=== PATIENT | male | born 1970 | race Caucasian/White ===

== ENCOUNTER 2016-07-02 13:09 | Outpatient (RCR) | payer BC ==
[2016-06-01 15:17] LABS: INR 2.3 (0.8-1.4); PROTHROMBIN TIME PATIENT 24.8 SEC (12.2-14.7)
[~2016-07-02 13:09] MED LIST: ASP81TEC PO; ATR20T PO; AZIT-21 PO; CEPH500C PO; CLOP75TA PO; HYDR-757 PO; HYDR1CAP2 PO; HYDR1TAB PO; IBUP-1773 PO; INDO25CA PO; ISM30TCR PO; LISI10TA PO; LISI2.5T85 PO; METO25TA2 PO; OMEP-10 PO; OMG1KC PO; PNT40TEC PO; PRED5TAB PO; WARF7.5T; WRF5T; WRF5T PO
[2016-07-02 13:29] LABS: INR 2.4 (0.8-1.4); PROTHROMBIN TIME PATIENT 26.3 SEC (12.2-14.7)
[2016-08-08] MEDS ORDERED: OMEP20CA12 PO (11:28)
[2016-08-08] MEDS ORDERED: OMEG-160 PO ×2 (11:28)
== END 2016-08-30 | disposition home or self-care (01) ==
LOC: LAB 13:09
PROVIDERS: ATTEND Internal Medicine Cardiovascular Disease
DX: I82.403 Acute embolism and thrombosis of unspecified deep veins of lower extremity, bilateral (principal); Z79.01 Long term (current) use of anticoagulants
CPT/HCPCS: 36415; 85610

== ENCOUNTER 2016-11-28 08:17 | Outpatient (RCR) | payer BC ==
[2016-09-12 14:49] LABS: INR 2.5 (0.8-1.4)
[2016-10-05 11:21] LABS: INR 1.8 (0.8-1.4); PROTHROMBIN TIME PATIENT 20.2 SEC (12.2-14.7)
[~2016-11-28 08:17] MED LIST changes: +OMEG-160 PO; +OMEP20CA12 PO
[2016-11-28 08:35] LABS: INR 2.2 (0.8-1.4); PROTHROMBIN TIME PATIENT 23.9 SEC (12.2-14.7)
== END 2016-12-11 | disposition home or self-care (01) ==
LOC: LAB 08:17
PROVIDERS: ATTEND Internal Medicine Cardiovascular Disease
DX: I82.403 Acute embolism and thrombosis of unspecified deep veins of lower extremity, bilateral (principal); Z79.01 Long term (current) use of anticoagulants
CPT/HCPCS: 36415; 85610

== ENCOUNTER 2017-01-09 17:18 | Emergency (ER) | payer BC ==
[~2017-01-09] VITALS: Ht 160 cm; Wt 86.2 kg
[2017-01-09] MEDS ORDERED: HYDR-3816 (17:36)
[2017-01-09] MEDS ORDERED: NS IV 1000 ML 1,000 ML IV ONE (17:53)
[2017-01-09] MEDS ORDERED: NS 100 ML (IVPB) BAG IV ONE (18:00)
[2017-01-09] MEDS ORDERED: IOHEXOL 350 MG/ML 100 ML (OMNIPAQUE 350) VIAL IV ONE (18:00)
--- NOTE | 2017-01-09 18:03 | ED Abdominal Pain ---
General Chief Complaint: Abdominal/GI Problems Stated Complaint: LOWER CHEST PAIN Nursing Triage Note: AMB TO ED REPORTS HAS HAD EPIGASTRIC PAIN FOR 1 WEEK. WORSE WHEN MOVING. Sepsis Screen: No Definite Risk Source of Information: Patient, Spouse Exam Limitations: No Limitations History of Present Illness Time Seen By Provider: 17:55 Initial Comments 46 yo male patient presents to the ED with c/o epigastric and RUQ pain for 1 wk. pain worse with spicy foods and movement. denies N/V/D. NPO since 0800. Timing/Duration: 1 Week Severity/Quality: Aching, Cramping Location: Epigastric Radiation: RUQ Activities at Onset: None Modifying Factors: Worsens With Eating, Worsens With Movement Allergies and Home Medications Allergies Coded Allergies: Penicillins (Unverified Allergy, Mild, 01/27/09) Home Medications Aspirin 81 Mg Tabec, 81 MG PO DAILY, (Reported) Atorvastatin 20 Mg Tablet, 20 MG PO DAILY, (Reported) Hydrocodone/Acetaminophen 1 Each Tablet, #90 (Reported) Lisinopril 2.5 Mg Tablet, 2.5 MG PO DAILY, (Reported) Metoprolol Tartrate 25 Mg Tablet, 25 MG PO HS, (Reported) [place]-3/Dha/Epa/Fish Oil 1 Each Capsule, 1,000 MG PO DAILY, (Reported) [place]-3/Dha/Epa/Fish Oil 1 Each Capsule, 2,000 MG PO HS, (Reported) TAKES 2 (1,000 MG) CAPSULES Omeprazole 20 Mg Capsule.dr, 20 MG PO DAILY, (Reported) Ondansetron 8 Mg Tab.rapdis, 8 MG PO Q6H PRN for NAUSEA/VOMITING-1ST LINE, #10 Ref 0 Prescribed by: ROCHELLE FLORES on 01/09/171899 Warfarin Sod 5 Mg Tab, 7.5 MG PO Mo@190, (Reported) TAKES 1 & 1/2 OF A (5 MG) TABLET Warfarin Sod 5 Mg Tab, 5 MG PO SuTuWeThFrSa@190, (Reported) Review of Systems Constitutional: No chills, No fever, No malaise Respiratory: Denies Cough, Denies Shortness of Air, Denies Wheezing Cardiovascular: Denies Chest Pain, Denies Lightheadedness, Denies Syncope Gastrointestinal: See HPI, Denies Abdomen Distended, Abdominal Pain, Denies Blood Streaked Stools, Denies Constipated, Denies Diarrhea, Denies Nausea, Denies Poor Appetite, Denies Poor Fluid Intake, Denies Rectal Bleeding, Denies Vomiting Genitourinary: Denies Burning, Denies Frequency, Denies Flank Pain, Denies Hematuria, Denies Pain Musculoskeletal: no symptoms reported Skin: no symptoms reported Psychiatric/Neurological: No Symptoms Reported All Other Systems Reviewed Negative Unless Noted: Yes (Negative excepted noted.) Past Oyeeqkj-Kknzor-Igqjvg Hx Patient Social History Alcohol Use: Occasionally Uses Recreational Drug Use: No Smoking Status: Current Everyday Smoker Recent Foreign Travel: No Contact w/Someone Who Travel: No Recent Infectious Disease Expo: No Immunizations Up To Date Date of Pneumonia Vaccine: Jul 28, 2012 Date of Influenza Vaccine: Jun 08, 2016 Seasonal Allergies Seasonal Allergies: No Surgeries HX Surgeries: Yes (STENTS) Respiratory Hx Respiratory Disorders: No Cardiovascular Hx Cardiac Disorders: Yes (STENT) Cardiac Disorders: Heart Attack Neurological Hx Neurological Disorders: No Reproductive System Hx Reproductive Disorders: No Genitourinary Hx Genitourinary Disorders: No Gastrointestinal Hx Gastrointestinal Disorders: Yes Gastrointestinal Disorders: Gastroesophageal Reflux Musculoskeletal Hx Musculoskeletal Disorders: Yes Musculoskeletal Disorders: Chronic Back Pain Endocrine Hx Endocrine Disorders: No HEENT HX ENT Disorders: No Cancer Hx Cancer: No Psychosocial Hx Psychiatric Problems: No Integumentary HX Skin/Integumentary Disorder: No Blood Transfusions Hx Blood Disorders: Yes (PROTEIN S DEF) Reviewed Nursing Assessment Reviewed/Agree w Nursing PMH: Yes Family Medical History Significant Family History: Heart Disease, Vascular Disease Physical Exam Vital Signs VS - Last 72 Hours, by Label 01/09/17 01/09/17 17:22 19:19 Temp 98.7 97.7 Pulse 82 75 Resp 18 18 B/P (MAP) 147/82 Pulse Ox 95 95 O2 Delivery Room Air Capillary Refill : Less Than 3 Seconds General Appearance: WD/WN, no apparent distress HEENT: PERRL/EOMI, pharynx normal Neck: supple, normal inspection Respiratory: lungs clear, normal breath sounds, no respiratory distress Cardiovascular: normal peripheral pulses, regular rate, rhythm, no edema, no murmur Peripheral Pulses: 2+ Dorsalis Pedis (R), 2+ Left Dors-Pedis (L) Gastrointestinal: normal bowel sounds, soft, no organomegaly, No distended, guarding (epigastric and RUQ), No rebound, tenderness (RUQ and epigastric), other ((+) zayas's sign) Back: normal inspection Neurologic/Psychiatric: alert, normal mood/affect, oriented x 3 Skin: normal color, warm/dry Progress/Results/Core Measures Results/Orders Lab Results Laboratory Tests Test 01/09/17 11:03 Range/Units White Blood Count 8.9 4.3-11.0 10^3/uL Red Blood Count 4.97 4.35-5.85 10^6/uL Hemoglobin 14.6 13.3-17.7 G/DL Hematocrit 43 40-54 % Mean Corpuscular Volume 86 80-99 FL Mean Corpuscular Hemoglobin 29 25-34 PG Mean Corpuscular Hemoglobin Concent 34 32-36 G/DL Red Cell Distribution Width 13.7 10.0-14.5 % Platelet Count 285 130-400 10^3/uL Mean Platelet Volume 9.7 7.4-10.4 FL Neutrophils (%) (Auto) 44 42-75 % Lymphocytes (%) (Auto) 40 12-44 % Monocytes (%) (Auto) 11 0-12 % Eosinophils (%) (Auto) 4 0-10 % Basophils (%) (Auto) 1 0-10 % Neutrophils # (Auto) 3.9 1.8-7.8 X 10^3 Lymphocytes # (Auto) 3.5 1.0-4.0 X 10^3 Monocytes # (Auto) 1.0 0.0-1.0 X 10^3 Eosinophils # (Auto) 0.4 H 0.0-0.3 10^3/uL Basophils # (Auto) 0.1 0.0-0.1 10^3/uL Sodium Level 140 135-145 MMOL/L Potassium Level 4.5 3.6-5.0 MMOL/L Chloride Level 105 98-107 MMOL/L Carbon Dioxide Level 27 21-32 MMOL/L Anion Gap 8 5-14 MMOL/L Blood Urea Nitrogen 8 7-18 MG/DL Creatinine 0.76 0.60-1.30 MG/DL Estimat Glomerular Filtration Rate > 60 BUN/Creatinine Ratio 11 Glucose Level 91 70-105 MG/DL Calcium Level 8.9 8.5-10.1 MG/DL Total Bilirubin 0.3 0.1-1.0 MG/DL Aspartate Amino Transf (AST/SGOT) 24 5-34 U/L Alanine Aminotransferase (ALT/SGPT) 18 0-55 U/L Alkaline Phosphatase 61 40-136 U/L Total Protein 6.4 6.4-8.2 G/DL Albumin 3.9 3.2-4.5 G/DL Lipase 14 8-78 U/L My Orders Orders - ROCHELLE FLORES Cbc With Automated Diff (01/09/17 17:53) Comprehensive Metabolic Panel (01/09/17 17:53) Lipase (01/09/17 17:53) Saline Lock/Iv-Start (01/09/17 17:53) Ns Iv 1000 Ml (Sodium Chloride 0.9%) (01/09/17 17:53) Ct Abdomen/Pelvis W (01/09/17 17:53) Iohexol Injection (Omnipaque 350 Mg/Ml 1 (01/09/17 18:00) Ns (Ivpb) (Sodium Chloride 0.9% Ivpb Bag (01/09/17 18:00) Medications Given in ED Current Medications Medications Dose Ordered Sig/Erik Route Start Time Stop Time Status Last Admin Dose Admin Iohexol 100 ml ONCE ONCE IV 01/09/17 18:00 01/09/17 18:01 DC 01/09/17 18:29 100 ML Sodium Chloride 100 ml ONCE ONCE IV 01/09/17 18:00 01/09/17 18:01 DC 01/09/17 18:29 80 ML Sodium Chloride 1,000 ml @ 0 mls/hr Q0M ONCE IV 01/09/17 17:53 01/09/17 17:54 DC 01/09/17 18:10 1,000 MLS/HR Vital Signs/I&O Vital Sign - Last 12Hours 01/09/17 01/09/17 17:22 19:19 Temp 98.7 97.7 Pulse 82 75 Resp 18 18 B/P (MAP) 147/82 Pulse Ox 95 95 O2 Delivery Room Air Blood Pressure Mean: 103 Diagnostic Imaging Diagonstic Imaging: CT Plain Films/CT/US/NM/MRI: abdomen, pelvis Comments Findings: Visualized lung bases: Unremarkable. Liver: Unremarkable. Gallbladder : Unremarkable. Pancreas: Unremarkable. Spleen: Unremarkable. Adrenal glands: Unremarkable. Kidneys/ ureters: Unremarkable. Aorta: Unremarkable. Intraabdominal/ retroperitoneal contents: Unremarkable. Intestines: Unremarkable. Appendix: Unremarkable. Bladder: Unremarkable. Pelvic organs: Unremarkable. Extra abdominal/ pelvis regions: Unremarkable. Abdominal wall: Unremarkable. Bones: Unremarkable. Impression: Unremarkable CT scan of the abdomen and pelvis. Dictated on workstation # [id number] Reviewed: Reviewed by Me (radiology report reviewed by me. ) Departure Communication Progress Notes Laboratory and diagnostic findings discussed with the patient. Patient reports improvement in symptoms with medications and IV fluids given. Plan for discharge to home with follow-up as an outpatient with Dr. Flowers. Impression Impression: Primary Impression: Upper abdominal pain Disposition: HOME, SELF-CARE Condition: Improved Departure-Patient Inst. Decision time for Depature: 18:58 Referrals: MARTHA FLOWERS MD (PCP/Family) Primary Care Physician Patient Instructions: Acute Abdomen (Belly Pain), Adult (DC) Add. Discharge Instructions: All discharge instructions reviewed with patient and/or family. Voiced understanding. Tylenol extra strength [id number]-poj-[id number] as directed for pain. Ibuprofen 800 mg by mouth every 8 hours as needed for pain. Drink plenty of fluids. Strict low-fat diet. Follow-up with Dr. Flowers as an outpatient in the next 1-2 days for recheck and possible need for outpatient hepatobiliary scan. Call for appointment time. Return to the emergency department for worsened pain, fever, vomiting, vomiting blood, rectal bleeding, black stools, chest pain, shortness of air, or any other concerns. Scripts Ondansetron (Ondansetron Odt) 8 Mg Tab.rapdis 8 MG PO Q6H Y for NAUSEA/VOMITING-1ST LINE, #10 TAB 0 Refills Prov: ROCHELLE FLORES 01/09/17 Work/School Note: Work Release Form Date Seen in the Emergency Department: January 09, 2017 Return to Work: January 10, 2017 Restrictions: No Restrictions ROCHELLE FLORES January 09, 2017 18:03
[2017-01-09 18:09] LABS: BASOPHILS # (AUTO) 0.1 10^3/uL (0.0-0.1); BASOPHILS % (AUTO) 1 % (0-10); EOSINOPHILS # (AUTO) 0.4 10^3/uL (0.0-0.3); EOSINOPHILS % (AUTO) 4 % (0-10); LYMPHOCYTES # (AUTO) 3.5 X 10^3 (1.0-4.0); LYMPHOCYTES % (AUTO) 40 % (12-44); MEAN CORPUSCULAR HEMOGLOBIN 29 PG (25-34); MEAN CORPUSCULAR HGB CONC 34 G/DL (32-36); MEAN CORPUSCULAR VOLUME 86 FL (80-99); MEAN PLATELET VOLUME 9.7 FL (7.4-10.4); MONOCYTES % (AUTO) 11 % (0-12); NEUTROPHILS # (AUTO) 3.9 X 10^3 (1.8-7.8); NEUTROPHILS % (AUTO) 44 % (42-75); PLATELET COUNT 285 10^3/uL (130-400); RED BLOOD COUNT 4.97 10^6/uL (4.35-5.85); RED CELL DISTRIBUTION WIDTH 13.7 % (10.0-14.5); WHITE BLOOD COUNT 8.9 10^3/uL (4.3-11.0)
[2017-01-09 18:29] LABS: ALANINE AMINOTRANSFERASE 18 U/L (0-55); ALBUMIN 3.9 G/DL (3.2-4.5); ANION GAP 8 MMOL/L (5-14); ASPARTATE AMINO TRANSFERASE 24 U/L (5-34); BILIRUBIN,TOTAL 0.3 MG/DL (0.1-1.0); BLOOD UREA NITROGEN 8 MG/DL (7-18); BUN/CREATININE RATIO 11; CALCIUM 8.9 MG/DL (8.5-10.1); CARBON DIOXIDE 27 MMOL/L (21-32); CHLORIDE 105 MMOL/L (98-107); CREATININE SERUM 0.76 MG/DL (0.60-1.30); GFR ESTIMATED > 60; GLUCOSE 91 MG/DL (70-105); LIPASE 14 U/L (8-78); POTASSIUM 4.5 MMOL/L (3.6-5.0); SODIUM 140 MMOL/L (135-145); TOTAL PROTEIN 6.4 G/DL (6.4-8.2)
--- NOTE | 2017-01-09 18:46 | Diagnostic Imaging Report ---
CLINICAL INDICATION: Patient with epigastric pain x1.5 weeks. Last week patient was short of air and had nausea, vomiting, and diarrhea. Exam: CT exam of the abdomen and pelvis is performed with 100 cc of Omnipaque 350 IV contrast. Coronal reformatted images were created. Comparisons: None. Findings: Visualized lung bases: Unremarkable. Liver: Unremarkable. Gallbladder: Unremarkable. Pancreas: Unremarkable. Spleen: Unremarkable. Adrenal glands: Unremarkable. Kidneys/ ureters: Unremarkable. Aorta: Unremarkable. Intraabdominal/ retroperitoneal contents: Unremarkable. Intestines: Unremarkable. Appendix: Unremarkable. Bladder: Unremarkable. Pelvic organs: Unremarkable. Extra abdominal/ pelvis regions: Unremarkable. Abdominal wall: Unremarkable. Bones: Unremarkable. Impression: Unremarkable CT scan of the abdomen and pelvis. Dictated by: Dictated on workstation # [id number]
[2017-01-09] MEDS ORDERED: ONDA8TAB13 PO (19:00)
[2017-01-09 19:19] VITALS: BP 135/82
== END 2017-01-09 19:18 | disposition home or self-care (01) ==
LOC: EDUNIT# 17:18 → ER 17:21
DX: R10.10 Upper abdominal pain, unspecified (principal); F17.210 Nicotine dependence, cigarettes, uncomplicated; Z79.01 Long term (current) use of anticoagulants; Z79.82 Long term (current) use of aspirin; Z79.899 Other long term (current) drug therapy; Z95.5 Presence of coronary angioplasty implant and graft
CPT/HCPCS: 36415; 74177; 80053; 83690; 85025; 96360

== ENCOUNTER 2017-02-20 11:24 | Outpatient (RCR) | payer BC ==
[2017-01-02 09:23] LABS: INR 1.9 (0.8-1.4); PROTHROMBIN TIME PATIENT 21.3 SEC (12.2-14.7)
[2017-02-01 13:02] LABS: INR 2.1 (0.8-1.4); PROTHROMBIN TIME PATIENT 23.4 SEC (12.2-14.7)
[~2017-02-20 11:24] MED LIST changes: +HYDR-3816; +ONDA8TAB13 PO
[2017-02-20 11:44] LABS: PROTHROMBIN TIME PATIENT 22.4 SEC (12.2-14.7)
== END 2017-04-02 | disposition home or self-care (01) ==
LOC: LAB 11:24
PROVIDERS: ATTEND Internal Medicine Cardiovascular Disease
DX: I82.403 Acute embolism and thrombosis of unspecified deep veins of lower extremity, bilateral (principal); Z79.01 Long term (current) use of anticoagulants
CPT/HCPCS: 36415; 85610

== ENCOUNTER → 2017-04-09 | Outpatient (CLI) | payer BC ==
[~2017-04-09] MED LIST changes: +ASPI-983 PO; +ATOR40TA70 PO; +CARI350T27 PO; +CLIN300C3 PO; +CLOP75TA28 PO; +FAMO-119 PO; +GABA600T2 PO; +GEMF600T3 PO; +HYDR-3816 PO; +LISI2.5T PO; +METO-387 PO; +PRD20T PO; +TIZA4TAB3 PO; +WARF-48 PO
[2017-04-09 11:19] LABS: INR 2.3 (0.8-1.4)
== END ==
LOC: LAB 10:55
PROVIDERS: ATTEND Internal Medicine Cardiovascular Disease
DX: I26.99 Other pulmonary embolism without acute cor pulmonale (principal); Z51.81 Encounter for therapeutic drug level monitoring
CPT/HCPCS: 36415; 85610

== ENCOUNTER 2017-04-13 15:05 | Emergency (ER) | payer BC ==
[~2017-04-13] VITALS: Ht 160 cm; Wt 81.6 kg
[~2017-04-13 15:05] MED LIST changes: -ASPI-983 PO; -ATOR40TA70 PO; -CARI350T27 PO; -CLIN300C3 PO; -CLOP75TA28 PO; -FAMO-119 PO; -GABA600T2 PO; -GEMF600T3 PO; -HYDR-3816 PO; -LISI2.5T PO; -METO-387 PO; -PRD20T PO; -TIZA4TAB3 PO; -WARF-48 PO
--- NOTE | 2017-04-13 16:13 | ED Integumentary General ---
General Chief Complaint: Allergic Reaction Stated Complaint: SWELLING IN R ARM AFTER FLU SHOT Nursing Triage Note: PT CO OF R DELTOID SWELLING FROM FLU/PNEM SHOT Source: patient, spouse Exam Limitations: no limitations History of Present Illness Time seen by provider: 16:13 Initial Comments 46-year-old male patient presents to the emergency department complaints of right upper arm pain after receiving a pneumonia and influenza shot yesterday. States he had the tetanus shot in the left arm and denies any symptoms. Now has swelling, redness, pain, and warmth of the right proximal arm. Timing/Duration: yesterday, getting worse Location: extremities (rt shoulder) Possible Cause: other (influenza and pneumonia injections) Modifying Factors: worse with other (worse with palpation and scratching) Allergies and Home Medications Allergies Coded Allergies: Penicillins (Unverified Allergy, Mild, 01/27/09) Home Medications Aspirin 81 Mg Tabec, 81 MG PO DAILY, (Reported) Atorvastatin 20 Mg Tablet, 20 MG PO DAILY, (Reported) Clindamycin HCl 300 Mg Capsule, 300 MG PO QID, #40 Ref 0 Prescribed by: ROCHELLE FLORES on 04/13/171725 Famotidine 20 Mg Tablet, 20 MG PO BID, #20 Ref 0 Prescribed by: ROCHELLE FLORES on 04/13/171725 Hydrocodone/Acetaminophen 1 Each Tablet, #90 (Reported) Lisinopril 2.5 Mg Tablet, 2.5 MG PO DAILY, (Reported) Metoprolol Tartrate 25 Mg Tablet, 25 MG PO HS, (Reported) [place]-3/Dha/Epa/Fish Oil 1 Each Capsule, 1,000 MG PO DAILY, (Reported) [place]-3/Dha/Epa/Fish Oil 1 Each Capsule, 2,000 MG PO HS, (Reported) TAKES 2 (1,000 MG) CAPSULES Omeprazole 20 Mg Capsule.dr, 20 MG PO DAILY, (Reported) Prednisone 20 Mg Tab, 40 MG PO DAILY, #10 Ref 0 Prescribed by: ROCHELLE FLORES on 04/13/171725 Warfarin Sod 5 Mg Tab, 7.5 MG PO Mo@1900, (Reported) TAKES 1 & 1/2 OF A (5 MG) TABLET Warfarin Sod 5 Mg Tab, 5 MG PO SuTuWeThFrSa@1900, (Reported) Constitutional: No dizziness, No fever, No malaise, No weakness EENTM: No mouth swelling, No nose congestion, No throat swelling Respiratory: No dyspnea on exertion, No short of breath, No stridor, No wheezing Cardiovascular: no symptoms reported Gastrointestinal: No abdominal pain, No diarrhea, nausea, No vomiting Musculoskeletal: see HPI Skin: see HPI Psychiatric/Neurological: No Symptoms Reported All Other Systems Reviewed Negative Unless Noted: Yes (Negative excepted noted.) Past Lmstwdp-Xjjxfu-Kamxlg Hx Patient Social History Alcohol Use: Denies Use Recreational Drug Use: No Smoking Status: Current Everyday Smoker Recent Foreign Travel: No Contact w/Someone Who Travel: No Recent Infectious Disease Expo: No Recent Hopitalizations: No Immunizations Up To Date Date of Pneumonia Vaccine: Jul 28, 2012 Date of Influenza Vaccine: Jun 08, 2016 Seasonal Allergies Seasonal Allergies: No Surgeries HX Surgeries: Yes (STENTS) Respiratory Hx Respiratory Disorders: No Cardiovascular Hx Cardiac Disorders: Yes (STENT) Cardiac Disorders: Heart Attack Neurological Hx Neurological Disorders: No Reproductive System Hx Reproductive Disorders: No Genitourinary Hx Genitourinary Disorders: No Gastrointestinal Hx Gastrointestinal Disorders: Yes Gastrointestinal Disorders: Gastroesophageal Reflux Musculoskeletal Hx Musculoskeletal Disorders: Yes Musculoskeletal Disorders: Chronic Back Pain Endocrine Hx Endocrine Disorders: No HEENT HX ENT Disorders: No Cancer Hx Cancer: No Psychosocial Hx Psychiatric Problems: No Integumentary HX Skin/Integumentary Disorder: No Blood Transfusions Hx Blood Disorders: Yes (PROTEIN S DEF) Reviewed Nursing Assessment Reviewed/Agree w Nursing PMH: Yes Family Medical History Significant Family History: Heart Disease, Vascular Disease Physical Exam Vital Signs Vital Sign - Last 12Hours 04/13/17 15:15 Temp 98.2 Pulse 78 Resp 18 B/P (MAP) 114/68 Pulse Ox 95 Capillary Refill : Less Than 3 Seconds General Appearance: WD/WN, no apparent distress HEENT: PERRL/EOMI, pharynx normal, No other (normocephalic, atraumatic. no evidence of swelling to the face or lips.) Neck: supple, normal inspection Cardiovascular: regular rate, rhythm, no murmur Respiratory: lungs clear, normal breath sounds, no respiratory distress Extremities: normal capillary refill, other (erythema, swelling and tenderness of the right deltoid consistent with urticaria. central puncture consistent with h/o injections. no drainage.) Neurologic/Psychiatric: no motor/sensory deficits, alert, normal mood/affect, oriented x 3 Skin: normal color, warm/dry, other (erythema, swelling and tenderness of the right deltoid consistent with urticaria. central puncture consistent with h/o injections. no drainage.) Skin Problem Location: upper extremities (right deltoid) Skin Problem Character: other (erythema, swelling and tenderness of the right deltoid consistent with urticaria. central puncture consistent with h/o injections. no drainage.) Progress/Results/Core Measures Results/Orders My Orders Orders - ROCHELLE FLORES Hydrocodone/Apap 7.5/325 Tab (Lortab 7. (04/13/17 16:21) Famotidine Tablet (Pepcid Tablet) (04/13/17 16:30) Diphenhydramine Tablet (Benadryl Tablet) (04/13/17 16:30) Prednisone Tablet (Deltasone Tablet) (04/13/17 16:30) Ondansetron Oral Dissolve Tab (Zofran (04/13/17 16:30) Medications Given in ED Vital Signs/I&O Vital Sign - Last 12Hours 04/13/17 04/13/17 15:15 17:28 Temp 98.2 98.2 Pulse 78 78 Resp 18 18 B/P (MAP) 114/68 Pulse Ox 95 95 Blood Pressure Mean: 83 Departure Communication Progress Notes Patient seen and evaluated. Patient was given Zofran, Pepcid, Benadryl, and prednisone with improvement in symptoms. Patient was given a prescription for prophylactic clindamycin due to the warmth, pain, and erythema associated with injection site. patient to f/u with pcp if needed. Impression Impression: Primary Impression: Urticaria at injection site Disposition: HOME, SELF-CARE Condition: Improved Departure-Patient Inst. Decision time for Depature: 17:07 Referrals: MARTHA FLOWERS MD (PCP/Family) Primary Care Physician Patient Instructions: Drug Allergy Add. Discharge Instructions: All discharge instructions reviewed with patient and/or family. Voiced understanding. Medications as instructed. Shower with antibacterial soap. Elevate the right arm on pillows as much as possible above the level of the heart for the next 2 days. Ice pack or heating pads as needed for pain and swelling. Follow-up with Dr. Flowers in the next 2-3 days for recheck, call first thing Saturday morning for appointment time. Return to the emergency department for worsened pain, swelling, redness, fever, or any other concerns. Scripts Famotidine (Pepcid) 20 Mg Tablet 20 MG PO BID, #20 TAB 0 Refills Prov: ROCHELLE FLORES 04/13/17 Prednisone (Prednisone) 20 Mg Tab 40 MG PO DAILY, #10 TAB 0 Refills Prov: ROCHELLE FLORES 04/13/17 Clindamycin HCl (Cleocin HCl) 300 Mg Capsule 300 MG PO QID, #40 CAP 0 Refills Prov: ROCHELLE FLORES 04/13/17 Work/School Note: Work Release Form Date Seen in the Emergency Department: Apr 13, 2017 Return to Work: Apr 15, 2017 Images Extremities-Upper 1 - Other-See Progress Note ROCHELLE FLORES Apr 13, 2017 4:13 pm
[2017-04-13] MEDS ORDERED: HYDROcodone/APAP 7.5 MG/325 MG (LORTAB, LORCET PLUS) TABLET PO STA (16:21)
[2017-04-13] MEDS ORDERED: predniSONE 20 MG TAB PO ONE (16:30)
[2017-04-13] MEDS ORDERED: ONDANSETRON 4 MG (ZOFRAN) ORAL DISSOLVE TAB PO ONE (16:30)
[2017-04-13] MEDS ORDERED: diphenhydrAMINE 25 MG TAB (BENADRYL) PO ONE (16:30)
[2017-04-13] MEDS ORDERED: FAMOTIDINE 20 MG (PEPCID) TABLET PO ONE (16:30)
[2017-04-13] MEDS ORDERED: FAMO-119 PO ×2 (17:08→17:26)
[2017-04-13] MEDS ORDERED: CLIN300C3 PO ×2 (17:08→17:26)
[2017-04-13] MEDS ORDERED: PRD20T PO ×2 (17:08→17:26)
[2017-04-13 17:28] VITALS: BP 114/68
== END 2017-04-13 17:28 | disposition home or self-care (01) ==
LOC: EDUNIT# 15:05 → ER 15:07
DX: L50.9 Urticaria, unspecified (principal); I25.2 Old myocardial infarction; K21.9 Gastro-esophageal reflux disease without esophagitis; F17.200 Nicotine dependence, unspecified, uncomplicated; Z82.49 Family history of ischemic heart disease and other diseases of the circulatory system; Z95.5 Presence of coronary angioplasty implant and graft; Z79.82 Long term (current) use of aspirin; Z79.01 Long term (current) use of anticoagulants
CPT/HCPCS: 99283

== ENCOUNTER 2017-05-09 10:49 | Outpatient (RCR) | payer BC ==
[~2017-05-09 10:49] MED LIST changes: +CLIN300C3 PO; +FAMO-119 PO; +PRD20T PO
[2017-05-09 11:28] LABS: INR 1.7 (0.8-1.4); PROTHROMBIN TIME PATIENT 20.4 SEC (12.2-14.7)
== END 2017-05-25 | disposition home or self-care (01) ==
LOC: LAB 10:49
PROVIDERS: ATTEND Internal Medicine Cardiovascular Disease
DX: Z51.81 Encounter for therapeutic drug level monitoring (principal); I26.99 Other pulmonary embolism without acute cor pulmonale; Z79.899 Other long term (current) drug therapy
CPT/HCPCS: 36415; 85610

== ENCOUNTER 2017-05-26 07:00 | Outpatient (RCR) | payer BC ==
[2017-07-03 08:29] LABS: INR 2.7 (0.8-1.4); PROTHROMBIN TIME PATIENT 28.3 SEC (12.2-14.7)
[2017-07-12] MEDS ORDERED: ASPI-983 PO (08:32)
[2017-07-12] MEDS ORDERED: WARF-48 PO ×2 (08:32)
[2017-07-12] MEDS ORDERED: METO-387 PO (08:32)
[2017-07-12] MEDS ORDERED: HYDR-3816 PO (08:32)
[2017-07-12] MEDS ORDERED: GEMF600T3 PO (08:32)
[2017-07-12] MEDS ORDERED: LISI2.5T PO (08:32)
[2017-07-12] MEDS ORDERED: CARI350T27 PO (08:32)
[2017-07-12] MEDS ORDERED: GABA600T2 PO (08:32)
[2017-07-12] MEDS ORDERED: ATOR40TA70 PO (08:32)
[2017-07-12] MEDS ORDERED: OMG1KC PO (08:32)
[2017-07-12] MEDS ORDERED: TIZA4TAB3 PO (08:32)
[2017-07-15] MEDS ORDERED: CLOP75TA28 PO (07:52)
== END 2017-08-24 | disposition home or self-care (01) ==
LOC: LAB 07:00
PROVIDERS: ATTEND Internal Medicine Cardiovascular Disease
DX: I26.99 Other pulmonary embolism without acute cor pulmonale (principal); Z79.01 Long term (current) use of anticoagulants
CPT/HCPCS: 36415; 85610

== ENCOUNTER 2017-07-11 15:02 | Inpatient (IN) | payer BC ==
[2017-07-11] VITALS (10 sets, daily range): BP systolic 148–165; BP diastolic 84–106
[~2017-07-11] VITALS: Ht 157.5 cm; Wt 83.5 kg
[~2017-07-11 15:02] MED LIST changes: +ONDANSETRON 4 MG/2 ML (SDV) Z0FRAN ONE
[2017-07-11] MEDS ORDERED: ASPIRIN 81 MG CHEW (CHILDREN'S ASA) PO ONE (15:15)
[2017-07-11] MEDS ORDERED: ONDANSETRON 4 MG/2 ML (SDV) Z0FRAN IVP ONE ×2 (15:15→15:30)
[2017-07-11] MEDS: NITROGLYCERIN 0.4 MG SL TABS BTL 25'S SL PRN ×3 (15:23→15:34)
[2017-07-11 15:24] LABS: BASOPHILS # (AUTO) 0.1 10^3/uL (0.0-0.1); BASOPHILS % (AUTO) 1 % (0-10); EOSINOPHILS # (AUTO) 0.4 10^3/uL (0.0-0.3); EOSINOPHILS % (AUTO) 3 % (0-10); LYMPHOCYTES # (AUTO) 5.2 X 10^3 (1.0-4.0); LYMPHOCYTES % (AUTO) 39 % (12-44); MEAN CORPUSCULAR HEMOGLOBIN 30 PG (25-34); MEAN CORPUSCULAR HGB CONC 35 G/DL (32-36); MEAN CORPUSCULAR VOLUME 86 FL (80-99); MONOCYTES # (AUTO) 1.5 X 10^3 (0.0-1.0); MONOCYTES % (AUTO) 11 % (0-12); NEUTROPHILS # (AUTO) 6.1 X 10^3 (1.8-7.8); NEUTROPHILS % (AUTO) 46 % (42-75); PLATELET COUNT 336 10^3/uL (130-400); RED BLOOD COUNT 5.18 10^6/uL (4.35-5.85); RED CELL DISTRIBUTION WIDTH 13.7 % (10.0-14.5); WHITE BLOOD COUNT 13.4 10^3/uL (4.3-11.0)
[2017-07-11 15:40] LABS: ALANINE AMINOTRANSFERASE 17 U/L (0-55); ALBUMIN 4.3 GM/DL (3.2-4.5); ANION GAP 11 MMOL/L (5-14); ASPARTATE AMINO TRANSFERASE 17 U/L (5-34); BILIRUBIN,TOTAL 0.4 MG/DL (0.1-1.0); BLOOD UREA NITROGEN 9 MG/DL (7-18); BUN/CREATININE RATIO 11; CALCIUM 9.4 MG/DL (8.5-10.1); CARBON DIOXIDE 27 MMOL/L (21-32); CHLORIDE 102 MMOL/L (98-107); CREATININE SERUM 0.82 MG/DL (0.60-1.30); GFR ESTIMATED > 60; GLUCOSE 102 MG/DL (70-105); INR 1.2 (0.8-1.4); MAGNESIUM 2.1 MG/DL (1.8-2.4); POTASSIUM 3.5 MMOL/L (3.6-5.0); PROTHROMBIN TIME PATIENT 15.7 SEC (12.2-14.7); SODIUM 140 MMOL/L (135-145); TOTAL PROTEIN 7.6 GM/DL (6.4-8.2)
--- NOTE | 2017-07-11 15:41 | ED Chest Pain ---
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 Vomiting after arrival to the ER. Pain is left-sided and not radiating than stated as a 10 out of 10 tightness. States it does not feel like his previous heart attack. Patient is on Coumadin. 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: No Associated Symptoms: No back pain, diaphoresis, No fever/chills, nausea/ vomiting, shortness of breath, No weakness Allergies and Home Medications Allergies Coded Allergies: Penicillins (Unverified Allergy, Mild, 01/27/09) Home Medications Aspirin 81 Mg Tabec, 81 MG PO DAILY, (Reported) Atorvastatin 20 Mg Tablet, 20 MG PO DAILY, (Reported) Clindamycin HCl 300 Mg Capsule, 300 MG PO QID, #40 Ref 0 Prescribed by: ROCHELLE FLORES on 04/13/171725 Famotidine 20 Mg Tablet, 20 MG PO BID, #20 Ref 0 Prescribed by: ROCHELLE FLORES on 04/13/171725 Hydrocodone/Acetaminophen 1 Each Tablet, #90 (Reported) Lisinopril 2.5 Mg Tablet, 2.5 MG PO DAILY, (Reported) Metoprolol Tartrate 25 Mg Tablet, 25 MG PO HS, (Reported) [place]-3/Dha/Epa/Fish Oil 1 Each Capsule, 1,000 MG PO DAILY, (Reported) [place]-3/Dha/Epa/Fish Oil 1 Each Capsule, 2,000 MG PO HS, (Reported) TAKES 2 (1,000 MG) CAPSULES Omeprazole 20 Mg Capsule.dr, 20 MG PO DAILY, (Reported) Prednisone 20 Mg Tab, 40 MG PO DAILY, #10 Ref 0 Prescribed by: ROCHELLE FLORES on 04/13/171725 Warfarin Sod 5 Mg Tab, 7.5 MG PO Mo@1900, (Reported) TAKES 1 & 1/2 OF A (5 MG) TABLET Warfarin Sod 5 Mg Tab, 5 MG PO Myron@1900, (Reported) Review of Systems Constitutional: see HPI, No chills, diaphoresis, No fever EENTM: No Symptoms Reported Respiratory: See HPI Cardiovascular: See HPI, Chest Pain, Denies Edema Gastrointestinal: See HPI, Nausea, Vomiting Genitourinary: No Symptoms Reported Musculoskeletal: no symptoms reported All Other Systems Reviewed Negative Unless Noted: Yes Past Qepwczz-Sdkclw-Ipjqwj Hx Patient Social History Alcohol Use: Denies Use Recreational Drug Use: No Smoking Status: Current Everyday Smoker Recent Foreign Travel: No Contact w/Someone Who Travel: No Recent Infectious Disease Expo: No Recent Hopitalizations: No Immunizations Up To Date Date of Pneumonia Vaccine: Jul 28, 2012 Date of Influenza Vaccine: Jun 08, 2016 Seasonal Allergies Seasonal Allergies: No Surgeries History of Surgeries: Yes (STENTS) Respiratory History of Respiratory Disorde: No Cardiovascular History of Cardiac Disorders: Yes (STENT) Cardiac Disorders: Heart Attack Neurological History of Neurological Disord: No Reproductive System Hx Reproductive Disorders: No Gastrointestinal History of Gastrointestinal Di: Yes Gastrointestinal Disorders: Gastroesophageal Reflux Musculoskeletal History of Musculoskeletal Dis: Yes Musculoskeletal Disorders: Chronic Back Pain Endocrine History of Endocrine Disorders: No Cancer History of Cancer: No Psychosocial History of Psychiatric Problem: No Integumentary History of Skin or Integumenta: No Blood Transfusions History of Blood Disorders: Yes (PROTEIN S DEF) Reviewed Nursing Assessment Reviewed/Agree w Nursing PMH: Yes Family Medical History Significant Family History: Heart Disease, Vascular Disease Physical Exam Vital Signs Vital Sign - Last 12Hours 07/11/17 15:15 Temp 96.8 Pulse 68 Resp 15 B/P (MAP) 137/98 Pulse Ox 98 O2 Delivery Room Air O2 Flow Rate 2.00 Capillary Refill : Less Than 3 Seconds General Appearance: No Apparent Distress, WD/WN HEENT: PERRL/EOMI, Pharynx Normal Neck: Non Tender, Supple Respiratory: Lungs Clear, Normal Breath Sounds Cardiovascular: Regular Rate, Rhythm, No Murmur Gastrointestinal: Non Tender, Soft Extremity: Normal Range of Motion, Non Tender Neurologic/Psychiatric: Alert, Oriented x3 Skin: Cool, Diaphoresis Progress/Results/Core Measures Results/Orders Lab Results Laboratory Tests Test 07/11/17 15:15 Range/Units White Blood Count 13.4 H 4.3-11.0 10^3/uL Red Blood Count 5.18 4.35-5.85 10^6/uL Hemoglobin 15.5 13.3-17.7 G/DL Hematocrit 44 40-54 % Mean Corpuscular Volume 86 80-99 FL Mean Corpuscular Hemoglobin 30 25-34 PG Mean Corpuscular Hemoglobin Concent 35 32-36 G/DL Red Cell Distribution Width 13.7 10.0-14.5 % Platelet Count 336 130-400 10^3/uL Mean Platelet Volume 9.0 7.4-10.4 FL Neutrophils (%) (Auto) 46 42-75 % Lymphocytes (%) (Auto) 39 12-44 % Monocytes (%) (Auto) 11 0-12 % Eosinophils (%) (Auto) 3 0-10 % Basophils (%) (Auto) 1 0-10 % Neutrophils # (Auto) 6.1 1.8-7.8 X 10^3 Lymphocytes # (Auto) 5.2 H 1.0-4.0 X 10^3 Monocytes # (Auto) 1.5 H 0.0-1.0 X 10^3 Eosinophils # (Auto) 0.4 H 0.0-0.3 10^3/uL Basophils # (Auto) 0.1 0.0-0.1 10^3/uL Prothrombin Time 15.7 H 12.2-14.7 SEC INR Comment 1.2 0.8-1.4 Activated Partial Thromboplast Time 28 24-35 SEC D-Dimer 0.28 0.00-0.49 UG/ML Sodium Level 140 135-145 MMOL/L Potassium Level 3.5 L 3.6-5.0 MMOL/L Chloride Level 102 98-107 MMOL/L Carbon Dioxide Level 27 21-32 MMOL/L Anion Gap 11 5-14 MMOL/L Blood Urea Nitrogen 9 7-18 MG/DL Creatinine 0.82 0.60-1.30 MG/DL Estimat Glomerular Filtration Rate > 60 BUN/Creatinine Ratio 11 Glucose Level 102 70-105 MG/DL Calcium Level 9.4 8.5-10.1 MG/DL Magnesium Level 2.1 1.8-2.4 MG/DL Total Bilirubin 0.4 0.1-1.0 MG/DL Aspartate Amino Transf (AST/SGOT) 17 5-34 U/L Alanine Aminotransferase (ALT/SGPT) 17 0-55 U/L Alkaline Phosphatase 78 40-136 U/L Myoglobin 31.5 10.0-92.0 NG/ML Troponin I < 0.30 <0.30 NG/ML Total Protein 7.6 6.4-8.2 GM/DL Albumin 4.3 3.2-4.5 GM/DL My Orders Orders - NILO EASON MD Ekg Tracing (07/11/17 15:07) Cbc With Automated Diff (07/11/17 15:08) Magnesium (07/11/17 15:08) Chest 1 View, Ap/Pa Only (07/11/17 15:08) Cardiac Profile 1 (07/11/17 15:08) Comprehensive Metabolic Panel (07/11/17 15:08) Myoglobin Serum (07/11/17 15:08) Protime With Inr (07/11/17 15:08) Partial Thromboplastin Time (07/11/17 15:08) O2 (07/11/17 15:08) Monitor-Rhythm Ecg Trace Only (07/11/17 15:08) Lipid Panel (07/12/17 06:00) Aspirin Chewable Tablet (Baby Aspirin Ch (07/11/17 15:15) Nitroglycerin 0.4 Mg Btl 25's (Nitrostat (07/11/17 15:15) Saline Lock/Iv-Start (07/11/17 15:08) Ondansetron Injection (Zofran Injectio (07/11/17 15:15) Ondansetron Injection (Zofran Injectio (07/11/17 15:01) Ondansetron Injection (Zofran Injectio (07/11/17 15:30) Fibrin Degradation Products (07/11/17 15:15) Promethazine Injection (Phenergan Injec (07/11/17 16:13) Morphine Injection (Morphine Injection (07/11/17 16:29) Clopidogrel Tablet (Plavix Tablet) (07/11/17 16:45) Medications Given in ED Current Medications Medications Dose Ordered Sig/Erik Route Start Time Stop Time Status Last Admin Dose Admin Aspirin 324 mg ONCE ONCE PO 07/11/17 15:15 07/11/17 15:16 DC 07/11/17 16:05 324 MG Nitroglycerin 0.4 mg UD PRN SL 07/11/17 15:15 07/11/17 15:35 DC 07/11/17 15:34 0.4 MG Ondansetron HCl 4 mg ONCE ONCE IVP 07/11/17 15:15 07/11/17 15:16 DC 07/11/17 15:16 4 MG Ondansetron HCl 4 mg ONCE ONCE IVP 07/11/17 15:30 07/11/17 15:31 DC 07/11/17 15:34 4 MG Vital Signs/I&O Vital Sign - Last 12Hours 07/11/17 07/11/17 07/11/17 07/11/17 15:15 15:15 15:15 16:05 Temp 96.8 Pulse 68 56 Resp 15 24 B/P (MAP) 137/98 148/84 Pulse Ox 98 98 100 O2 Delivery Room Air Room Air Nasal Cannula Nasal Cannula O2 Flow Rate 2.00 2.00 Blood Pressure Mean: 111 Progress Note : Progress Note Seen and evaluated. IV, labs, EKG and chest x-ray ordered. ASA 324 mg by mouth. Zofran 4 mg IV, nitroglycerin sublingual ordered. Repeat Zofran 4 mg IV for persistent vomiting. Monitor patient. 1630: Patient with persistent vomiting. Phenergan 25 mg IV has been initiated. Morphine 4 mg IV for persistent chest pain. Patient is under the care of Dr. Rhoades. I did talk with him and he is going out of town so he will go to the on-call satellite specialist. I did discuss the case with Dr. Acevedo who accepts for admission, observation status. I did speak with Dr. Duran. We will initiate Plavix 300 mg by mouth per his request and keep nothing by mouth with echocardiogram in the morning. This was ordered. Admit, observation status. Patient and family agree with plan. ECG Initial ECG Impression Date: Jul 11, 2017 Initial ECG Impression Time: 15:07 Initial ECG Rate: 77 Initial ECG Rhythm: Normal Sinus Comment Sinus rhythm with normal axis. No evidence of ST elevation VT. Change from previous in which incomplete right bundle-branch block was noted from 24 September 2012. interpreted by me. Diagnostic Imaging Diagonstic Imaging: Xray Plain Films/CT/US/NM/MRI: chest Comments VIA [facility] [place], [place] NAME: HOANG ALVARADO [facility] REC#: [id number] PT STATUS: REG ER : 1970 PHYSICIAN: NILO EASON MD ADMIT DATE: 07/11/17/ER Draft Date of Exam:07/11/17 CHEST 1 VIEW, AP/PA ONLY INDICATION: Chest pain. FINDINGS: The heart and lungs appeared normal. IMPRESSION: Negative. Dictated on workstation # [id number] Dict: 07/11/17 1625 Trans: 07/11/17 1630 [facility] [id number] Interpreted by: BILL PEREZ Electronically signed by: Departure Communication (Admissions) Time/Spoke to Admitting Phy: 16:31 Time/Spoke to Consulting Phy: 16:33 Impression Impression: Primary Impression: Chest pain Qualified Codes: R07.9 - Chest pain, unspecified Disposition: 09 ADMITTED INPATIENT Condition: Stable Admissions Decision to Admit Reason: Admit from ER (General) Decision to Admit/Date: Jul 11, 2017 Time/Decision to Admit Time: 16:31 Departure-Patient Inst. Referrals: MARTHA LARSON MD (PCP/Family) Primary Care Physician NILO EASON MD Jul 11, 2017 15:41
[2017-07-11 15:46] LABS: MYOGLOBIN SERUM 31.5 NG/ML (10.0-92.0)
[2017-07-11] MEDS ORDERED: PROMETHAZINE INJ 25 MG/ML (PHENERGAN) AMP IVP STA (16:13)
[2017-07-11] MEDS ORDERED: morphine INJ 10 MG/ML 1ML (SYR OR VIAL) IVP STA (16:29)
--- NOTE | 2017-07-11 16:31 | Diagnostic Imaging Report ---
INDICATION: Chest pain. FINDINGS: The heart and lungs appeared normal. IMPRESSION: Negative. Dictated by: Dictated on workstation # [id number]
[2017-07-11] MEDS ORDERED: CLOPIDOGREL 300 MG (PLAVIX) TABLET PO ONE (16:45)
[2017-07-11] MEDS ORDERED: NS IV 1000 ML 1,000 ML ONE (17:26)
[2017-07-11] MEDS ORDERED: ONDANSETRON 4 MG/2 ML (SDV) Z0FRAN IV PRN (18:00)
[2017-07-11] MEDS ORDERED: CATHETER FLUSH 10 ML SYR IV PRN (18:00)
[2017-07-11] MEDS ORDERED: morphine INJ 10 MG/ML 1ML (SYR OR VIAL) IV PRN (18:00)
[2017-07-11] MEDS ORDERED: PROMETHAZINE INJ 25 MG/ML (PHENERGAN) AMP IV PRN (18:00)
[2017-07-11] MEDS: NS IV 1000 ML 1,000 ML IV SCH (18:11)
[2017-07-11] MEDS: morphine INJ 4 MG/ML 1 ML (VIAL/SYRINGE) IV PRN ×2 (18:18→21:03)
[2017-07-11] MEDS ORDERED: RT-ALBUTEROL SULF 2.5 MG/3 ML PRE-MIX VIAL IH PRN (19:45)
[2017-07-11] MEDS ORDERED: ENOXAPARIN 80 MG/0.8 ML (LOVENOX) SYR SC ONE (22:30)
[2017-07-11] MEDS ORDERED: ATORVASTATIN 40 MG (LIPITOR) TABLET PO SCH (22:30)
[2017-07-11] MEDS ORDERED: lisINopril 10 MG (PRINIVIL) TAB PO ONE (22:30)
[2017-07-11] MEDS ORDERED: ENOXAPARIN 80 MG/0.8 ML (LOVENOX) SYR ONE (22:33)
[2017-07-11] MEDS ORDERED: lisINopril 10 MG (PRINIVIL) TAB ONE (22:33)
[2017-07-11] MEDS ORDERED: ATORVASTATIN 40 MG (LIPITOR) TABLET PO ONE (22:33)
[2017-07-12] VITALS (15 sets, daily range): BP systolic 111–165; BP diastolic 64–101
[2017-07-12] MEDS: NS IV 1000 ML 1,000 ML IV SCH ×3 (01:34→17:36)
[2017-07-12] MEDS: NITROGLYCERIN 0.4 MG SL TABS BTL 25'S SL PRN ×3 (05:58→06:43)
[2017-07-12 06:26] LABS: BASOPHILS % (AUTO) 0 % (0-10); EOSINOPHILS % (AUTO) 0 % (0-10); LYMPHOCYTES # (AUTO) 2.1 X 10^3 (1.0-4.0); LYMPHOCYTES % (AUTO) 14 % (12-44); MEAN CORPUSCULAR HEMOGLOBIN 29 PG (25-34); MEAN CORPUSCULAR HGB CONC 33 G/DL (32-36); MEAN CORPUSCULAR VOLUME 87 FL (80-99); MEAN PLATELET VOLUME 9.5 FL (7.4-10.4); MONOCYTES # (AUTO) 1.2 X 10^3 (0.0-1.0); MONOCYTES % (AUTO) 8 % (0-12); NEUTROPHILS # (AUTO) 11.7 X 10^3 (1.8-7.8); NEUTROPHILS % (AUTO) 77 % (42-75); PLATELET COUNT 278 10^3/uL (130-400); RED BLOOD COUNT 4.61 10^6/uL (4.35-5.85); RED CELL DISTRIBUTION WIDTH 13.8 % (10.0-14.5); WHITE BLOOD COUNT 15.1 10^3/uL (4.3-11.0)
[2017-07-12 06:49] LABS: ALANINE AMINOTRANSFERASE 26 U/L (0-55); ALBUMIN 3.7 GM/DL (3.2-4.5); ANION GAP 9 MMOL/L (5-14); ASPARTATE AMINO TRANSFERASE 95 U/L (5-34); BILIRUBIN,TOTAL 0.7 MG/DL (0.1-1.0); BLOOD UREA NITROGEN 8 MG/DL (7-18); BUN/CREATININE RATIO 12; CALCIUM 8.7 MG/DL (8.5-10.1); CARBON DIOXIDE 25 MMOL/L (21-32); CHLORIDE 103 MMOL/L (98-107); CHOLESTEROL 192 MG/DL (< 200); CREATININE SERUM 0.67 MG/DL (0.60-1.30); DIRECT LDL 143 MG/DL (1-129); GFR ESTIMATED > 60; GLUCOSE 123 MG/DL (70-105); POTASSIUM 3.8 MMOL/L (3.6-5.0); SODIUM 137 MMOL/L (135-145); TOTAL PROTEIN 6.3 GM/DL (6.4-8.2); TRIGLYCERIDES 185 MG/DL (<150); VLDL CHOLESTEROL 37 MG/DL (5-40)
[2017-07-12 06:55] LABS: BAND NEUTROPHILS 0 %; LYMPHOCYTES % (MANUAL) 13 %; NEUTROPHILS % (MANUAL) 73 %
[2017-07-12] MEDS: morphine INJ 4 MG/ML 1 ML (VIAL/SYRINGE) IV PRN ×3 (07:19→10:32)
[2017-07-12] MEDS ORDERED: HEParin 1000 UNIT/ML (10ML VIAL) FOR BOLUS ONE (07:28)
[2017-07-12] MEDS ORDERED: NS IV 1000 ML 2,000 ML ONE (07:28)
[2017-07-12] MEDS ORDERED: OMG1KC PO (08:32)
[2017-07-12] MEDS ORDERED: GEMF600T3 PO (08:32)
[2017-07-12] MEDS ORDERED: WARF-48 PO ×2 (08:32)
[2017-07-12] MEDS ORDERED: ASPI-983 PO (08:32)
[2017-07-12] MEDS ORDERED: HYDR-3816 PO (08:32)
[2017-07-12] MEDS ORDERED: CARI350T27 PO (08:32)
[2017-07-12] MEDS ORDERED: GABA600T2 PO (08:32)
[2017-07-12] MEDS ORDERED: ATOR40TA70 PO (08:32)
[2017-07-12] MEDS ORDERED: METO-387 PO (08:32)
[2017-07-12] MEDS ORDERED: TIZA4TAB3 PO (08:32)
[2017-07-12] MEDS ORDERED: LISI2.5T PO (08:32)
[2017-07-12] MEDS ORDERED: ASPIRIN E.C. 325 MG (ECOTRIN) TABLET PO SCH (09:00)
--- NOTE | 2017-07-12 10:37 | Consultation-Cardiology ---
HPI-Cardiology Cardiology Consultation: Date of Consultation 07/12/17 Date of Admission Attending Physician Salma Acevedo DO Admitting Physician John Flowers MD Consulting Physician Dorothea DURAN MD HPI: Time Seen by Provider: 09:30 Chief Complaint: Chest pain This is a 46-year-old male with history of previous CAD. History is not very clear. Apparently he also has protein S deficiency and is on Coumadin with subtherapeutic INR. He presented to the ER yesterday with complain of one hour of chest pain associated with nausea and vomiting. No radiation. No exacerbating or relieving factors. He described the pain as tightness. 10 out of 10 intensity. Significantly improved with medications in the ER. Review of Systems-Cardiology Review of Systems Constitutional: No As described under HPI, No no symptoms reported, No chills, No fever, No lightheadedness, No malaise, No tiredness, No weight loss, No weight gain, No other Eyes: No As described under HPI, No no symptoms reported, No blindness, No blurred vision, No contact lenses, No drainage, No decreased acuity, No foreign body sensation, No glasses, No inflammation, No pain, No photophobia, No previous injury, No shadows, No tunnel vision, No other, No vision change Ears/Nose/Throat: No As described under HPI, No no symptoms reported, No chronic hearing loss, No epistaxis, No ear discharge, No ear pain, No loose teeth, No mouth pain, No mouth swelling, No nasal drainage, No nose pain, No recent hearing loss, No throat pain, No throat swelling, No ulcerations, No other Respiratory: No no symptoms reported, No As described under HPI, No cough, No orthopnea, No shortness of breath, No SOB with excertion, No SOB at rest, No stridor, No wheezing, No other Cardiovascular: chest pain Gastrointestinal: No no symptoms reported, No As described under HPI, No abdomen distended, No abdominal pain, No blood streaked bowels, No constipation , No diarrhea, No difficulty swallowing, No nausea, No poor appetite, No poor fluid intake, No rectal bleeding, No vomiting, No other, No nausea/vomiting/ diarrhea, No stool coloration changes Genitourinary: No no symptoms reported, No As described under HPI, No burning, No dysuria, No discharge, No frequency, No flank pain, No hematuria, No incontinence, No pain, No urgency, No other, No urine frequency changes, No urine coloration changes Musculoskeletal: No no symptoms reported, No As describe under HPI, No back pain, No gout, No joint pain, No joint swelling, No muscle pain, No muscle stiffness, No neck pain, No other Skin: No no symptoms reported, No As described under HPI, No change in color, No change in hair/nails, No dryness, No lesions, No lumps, No rash, No other, No skin related problems, No ulcerations, No rash on exposed areas, No ulcerations on exposed areas Psychiatric/Neurological: No no symptoms reported, No As described under HPI, No anxiety, No depression, No emotional problems, No headache, No numbness, No pre-existing deficit, No seizure, No tingling, No tremors, No weakness, No other , No focal weakness, No syncope Hematologic: No no symptoms reported, No As described under HPI, No anemia, No blood clots, No easy bleeding, No easy bruising, No swollen glands, No other, No bleeding abnormalities All Other Systems Reviewed Negative Unless Noted: Yes GCO-Sxhjku-Lcnktd Hx Patient Social History Alcohol Use: Denies Use Recreational Drug Use: No Smoking Status: Current Everyday Smoker Recent Foreign Travel: No Recent Infectious Disease Expo: No Hospitalization with Isolation: Denies Physical Abuse Screen: No Sexual Abuse: No Immunizations Up To Date Date of Pneumonia Vaccine: Jul 28, 2012 Date of Influenza Vaccine: Jun 08, 2017 Past Medical History PMH As described under Assessment. Allergies and Home Medications Allergies Coded Allergies: Penicillins (Unverified Allergy, Mild, 01/27/09) Home Medications Aspirin 81 Mg Tablet.dr, 81 MG PO DAILY, (Reported) Atorvastatin Calcium 40 Mg Tablet, 40 MG PO DAILY, (Reported) Carisoprodol 350 Mg Tablet, 350 MG PO HS, (Reported) Gabapentin 600 Mg Tablet, 600 MG PO TID, (Reported) Gemfibrozil 600 Mg Tablet, 600 MG PO BID, (Reported) Hydrocodone/Acetaminophen 1 Each Tablet, 1 TAB PO TID PRN for PAIN-MODERATE, ( Reported) Lisinopril 2.5 Mg Tablet, 2.5 MG PO DAILY, (Reported) Metoprolol Succinate 25 Mg Tab.er.24h, 25 MG PO DAILY, (Reported) [place] 3 Polyunsat Fatty Acids 1,000 Mg Cap, 1,000 MG PO TID, (Reported) Tizanidine HCl 4 Mg Tablet, 8 MG PO TID PRN for MUSCLE SPASMS, (Reported) TAKES 2 (4MG) TABLETS Warfarin Sodium 5 Mg Tablet, 7.5 MG PO MoWe, (Reported) TAKES 1 & 1/2 (5MG) TABLETS Warfarin Sodium 5 Mg Tablet, 5 MG PO SuTuThFrSa, (Reported) Physical Exam-Cardiology Physical Exam Vital Signs/I&O Vital Sign - Last 12Hours 07/12/17 07/12/17 07/12/17 07/12/17 04:00 06:04 07:00 07:23 Temp 98.7 98.5 99.3 Pulse 66 56 49 50 Resp 18 16 B/P (MAP) 120/70 130/81 124/74 Pulse Ox 96 99 100 O2 Delivery Nasal Cannula Nasal Cannula Nasal Cannula O2 Flow Rate 2.00 2.00 2.00 07/12/17 07/12/17 08:00 12:00 Temp 98.4 99.5 Pulse 51 56 Resp 24 24 B/P (MAP) 138/78 165/86 Pulse Ox 100 100 O2 Delivery Nasal Cannula Nasal Cannula O2 Flow Rate 2.00 2.00 Capillary Refill : Less Than 3 Seconds Constitutional: No appears stated age, No AAO x 3, No apparent distress, No PERRL, No well-developed, No well-nourished, No other HEENT: No PERRL, No normal ENT inspection, No TMs normal, No pharynx normal, No scleral icterus (R), No scleral icterus (L), No pale conjunctivae (R), No pale conjunctivae (L), No photophobia, No TM abnormal (R), No TM abnormal (L), No pharyngeal erythema, No tonsillar exudate, No other, No discharge, No EOMI, No hearing is well preserved, No hard of hearing, No oral hygience is good, No ulceration, No xanthelasmas are seen Neck: No non-tender, No full range of motion, No supple, No normal inspection, No carotid bruit, No limited range of motion, No lymphadenopathy (R), No lymphadenopathy (L), No tender lateral, No tender midline, No thyromegaly, No other, No carotid pulses are 2 + bilaterally, No with good upstrokes Respiratory: No accessory muscle use, No respiratory distress, No chest tender , No chest expansion is symmetric, No chest is bilaterally symmetric, No lungs clear to percussion, No lungs clear to auscultation, No crackles, No rhonchi, No rales, No stridor, No wheezing, No pleural rub, No other Cardiovascular: No regular rate-rhythm, No irregularly irregular, No extra beats, No parasternal heave is noted, No JVD, No edema, No bradycardia, No tachycardia, No point of maximal impulse, No cardiac thrills are palpable, No S1 and S2, No gallop/S3, No gallop/S4, No diastolic murmur, No systolic murmur, No friction rub, No click, No other Gastrointestinal: No tender, No soft, No round, No distended, No pulsatile mass , No organomegaly, No guarding, No rebound, No tenderness, No hernia, No mass, No audible bowel sounds, No abnormal bowel sounds, No abdominal bruits, No spleenomegaly, No other Rectal: deferred Extremities: No normal range of motion, No non-tender, No normal inspection, No pedal edema, No calf tenderness, No normal capillary refill, No pelvis stable , No calf tenderness, No inflammation, No pedal edema, No slow capillary refill , No swelling, No other, No abrasion, No clubbing, No cyanosis, No ecchymosis, No laceration, No no lower extremity edema bilateral, No significant edema, No tenderness, No wound Neurologic/Psychiatric: No general laborer II-XII nml as tested, No no motor/sensory deficits, No alert, No normal mood/affect, No oriented x 3, No abnormal cerebellar tests, No abnormal general laborer II-XII, No abnormal gait, No aphasia, No EOM palsy, No facial droop, No motor weakness, No sensory deficit, No depressed affect, No disoriented x 3, No other, No grossly intact, No power is 5/5 both on sides Skin: No normal color, No warm/dry, No cyanosis, No cool, No diaphoresis, No damp, No ecchymosis, No jaundice, No mottled, No pallor, No rash, No tattoos/ piercings, No ulcerations, No rash on exposed areas, No ulcerations on exposed areas, No other Data Review Labs Laboratory Tests 07/11/17 15:15: White Blood Count 13.4H, Red Blood Count 5.18, Hemoglobin 15.5, Hematocrit 44, Mean Corpuscular Volume 86, Mean Corpuscular Hemoglobin 30, Mean Corpuscular Hemoglobin Concent 35, Red Cell Distribution Width 13.7, Platelet Count 336, Mean Platelet Volume 9.0, Neutrophils (%) (Auto) 46, Lymphocytes (%) (Auto) 39, Monocytes (%) (Auto) 11, Eosinophils (%) (Auto) 3, Basophils (%) (Auto) 1, Neutrophils # (Auto) 6.1, Lymphocytes # (Auto) 5.2H, Monocytes # (Auto) 1.5H, Eosinophils # (Auto) 0.4H, Basophils # (Auto) 0.1, Prothrombin Time 15.7H, INR Comment 1.2, Activated Partial Thromboplast Time 28, D-Dimer 0.28, Sodium Level 140, Potassium Level 3.5L, Chloride Level 102, Carbon Dioxide Level 27, Anion Gap 11, Blood Urea Nitrogen 9, Creatinine 0.82, Estimat Glomerular Filtration Rate > 60, BUN/Creatinine Ratio 11, Glucose Level 102, Calcium Level 9.4, Magnesium Level 2.1, Total Bilirubin 0.4, Aspartate Amino Transf (AST/SGOT) 17, Alanine Aminotransferase (ALT/SGPT) 17, Alkaline Phosphatase 78, Myoglobin 31.5 , Troponin I < 0.30, Total Protein 7.6, Albumin 4.3 07/11/17 21:45: Troponin I 0.57*H 07/12/17 05:24: White Blood Count 15.1H, Red Blood Count 4.61, Hemoglobin 13.3, Hematocrit 40, Mean Corpuscular Volume 87, Mean Corpuscular Hemoglobin 29, Mean Corpuscular Hemoglobin Concent 33, Red Cell Distribution Width 13.8, Platelet Count 278, Mean Platelet Volume 9.5, Neutrophils (%) (Auto) 77H, Lymphocytes (%) (Auto) 14 , Monocytes (%) (Auto) 8, Eosinophils (%) (Auto) 0, Basophils (%) (Auto) 0, Neutrophils # (Auto) 11.7H, Lymphocytes # (Auto) 2.1, Monocytes # (Auto) 1.2H, Eosinophils # (Auto) 0.0, Basophils # (Auto) 0.0, Sodium Level 137, Potassium Level 3.8, Chloride Level 103, Carbon Dioxide Level 25, Anion Gap 9, Blood Urea Nitrogen 8, Creatinine 0.67, Estimat Glomerular Filtration Rate > 60, BUN/ Creatinine Ratio 12, Glucose Level 123H, Calcium Level 8.7, Total Bilirubin 0.7 , Aspartate Amino Transf (AST/SGOT) 95H, Alanine Aminotransferase (ALT/SGPT) 26 , Alkaline Phosphatase 64, Total Protein 6.3L, Albumin 3.7, Neutrophils % ( Manual) 73, Lymphocytes % (Manual) 13, Monocytes % (Manual) 14, Band Neutrophils 0, Blood Morphology Comment NORMAL, Triglycerides Level 185H, Cholesterol Level 192, LDL Cholesterol Direct 143H, VLDL Cholesterol 37, HDL Cholesterol 34L A/P-Cardiology Assessment/Admission Diagnosis Non-STEMI Plan Non-STEMI: Aspirin, Plavix. Lovenox given last night. Urgent coronary angiography today. Risks and complication discussed at length with the patient including bleeding, vascular damage, VT, stroke, even . Once the patient and family accepted all the risks and complication, informed consent was taken and documented. Hyperlipidemia: Will require statin therapy. Thank you for your consultation. Please call me if you have any questions. Dacia Duran MD, FACP, FACC, FSCAI, FHRS, CCDS Interventional Cardiology Cardiac Electrophysiology Vascular Medicine and Endovascular Interventions Clinical Quality Measures AMI/AHF: ASA po Prior to arrival: No DVT/VTE Risk/Contraindication: Risk Factor Score Per Nursin RFS Level Per Nursing on Admit: 3=High Dorothea DURAN MD Jul 12, 2017 10:37 am
--- NOTE | 2017-07-12 11:17 | Short Stay Summary-Hospitalist ---
HPI History of Present Illness: HPI/Chief Complaint CC: Chest pain HPI: This is a 46 yoWM pt who presented to the ER with SOB and CP. 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 Physical exam stable. 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 Acevedo. Source: patient, family Exam Limitations: no limitations Date Seen 07/12/17 Time Seen by Provider: 09:30 Attending Physician Salma Acevedo DO PCP John Flowers MD Referring Physician Date of Admission Jul 11, 2017 at 16:38 Home Medications & Allergies Home Medications Reviewed patient Home Medication Reconciliation Form Allergies Allergies Coded Allergies Penicillins (Unverified Allergy, Mild, 01/27/09) Past Xmbipyz-Jxhzsx-Ebtdou Hx Patient Social History Marrital Status: Employed/Student: employed Alcohol Use: Denies Use Recreational Drug Use: No Smoking Status: Current Everyday Smoker Physical Abuse Screen: No Sexual Abuse: No Recent Foreign Travel: No Contact w/other who traveled: No Recent Hopitalizations: No Recent Infectious Disease Expo: No Immunizations Up To Date Date of Pneumonia Vaccine: Jul 28, 2012 Date of Influenza Vaccine: Jun 08, 2017 Seasonal Allergies Seasonal Allergies: No Surgeries Yes (STENTS) Respiratory Yes Pulmonary Embolism Cardiovascular Yes (STENT) Heart Attack, High Cholesterol, Hypertension Neurological No Reproductive System Hx Reproductive Disorders: No Gastrointestinal Yes Gastroesophageal Reflux Musculoskeletal Yes Chronic Back Pain Endocrine History of Endocrine Disorders: No Cancer No Psychosocial History of Psychiatric Problem: No Integumentary History of Skin or Integumenta: No Blood Transfusions History of Blood Disorders: Yes (PROTEIN S DEF) Reviewed Nursing Assessment Reviewed/Agree w Nursing PMH: Yes Family Medical History Significant Family History: Heart Disease, Vascular Disease Review of Systems Constitutional: see HPI EENTM: no symptoms reported Respiratory: no symptoms reported Cardiovascular: chest pain Gastrointestinal: no symptoms reported Genitourinary: no symptoms reported Musculoskeletal: no symptoms reported Skin: no symptoms reported Psychiatric/Neurological: No Symptoms Reported All Other Systems Reviewed Negative Unless Noted: Yes Physical Exam Physical Exam Vital Signs Vital Sign - Last 12Hours 07/11/17 15:15 Temp 96.8 Pulse 68 Resp 15 B/P (MAP) 137/98 Pulse Ox 98 O2 Delivery Room Air O2 Flow Rate 2.00 Capillary Refill : Less Than 3 Seconds General Appearance: No Apparent Distress, WD/WN, Chronically ill Eyes: Bilateral Eye Normal Inspection, Bilateral Eye PERRL HEENT: PERRL/EOMI, Normal ENT Inspection, Pharynx Normal Neck: Full Range of Motion, Normal Inspection, Non Tender, Supple, Carotid Bruit Respiratory: Chest Non Tender, Lungs Clear, Normal Breath Sounds, No Accessory Muscle Use, No Respiratory Distress Cardiovascular: Regular Rate, Rhythm, No Edema, No Gallop, No JVD, No Murmur, Normal Peripheral Pulses Gastrointestinal: Normal Bowel Sounds, No Organomegaly, No Pulsatile Mass, Non Tender, Soft Back: Normal Inspection, No CVA Tenderness, No Vertebral Tenderness Extremity: Normal Capillary Refill, Normal Inspection, Normal Range of Motion, Non Tender, No Calf Tenderness, No Pedal Edema Neurologic/Psychiatric: Alert, Oriented x3, No Motor/Sensory Deficits, Normal Mood/Affect Skin: Normal Color, Warm/Dry Lymphatic: No Adenopathy Results Results/Procedures Lab Laboratory Tests 07/11/17 15:15 07/12/17 05:24 Short Stay Diagnosis Discharge Diagnosis-Short Stay Admission Diagnosis Chest pain in known CAD pt with previous CO and stent placement at 42yo Smoker Final Discharge Diagnosis Chest pain in known CAD pt with previous CO and stent placement at 42yo Smoker Conclusion Plan Plan: Cardiac cath 1230 Monitor pt Dispo per Cardiology Clinical Quality Measures AMI/AHF: ASA po Prior to arrival: No DVT/VTE Risk/Contraindication: Risk Factor Score Per Nursin RFS Level Per Nursing on Admit: 3=High SALMA ACEVEDO DO Jul 12, 2017 11:17
[2017-07-12] MEDS ORDERED: fentaNYL INJECTION 100 MCG/2 ML AMP ONE (12:27)
[2017-07-12] MEDS ORDERED: MIDAZOLAM 5 MG/5 ML (VERSED) VIAL ONE (12:27)
[2017-07-12] MEDS ORDERED: diphenhydrAMINE 50 MG/ML INJ (BENADRYL) ONE (12:28)
[2017-07-12] MEDS: warFARin 5 MG (COUMADIN) TAB PO SCH (12:51)
[2017-07-12] MEDS ORDERED: lisINopril 5 MG (PRINIVIL) TABLET ONE (12:56)
[2017-07-12] MEDS ORDERED: NITROGLYCERIN DRIP 25 MG/D5W 250 ML IV ONE (13:20)
[2017-07-12] MEDS ORDERED: VERAPAMIL 5 MG/2 ML (CALAN) VIAL IV ONE (13:20)
[2017-07-12] MEDS ORDERED: CLOPIDOGREL 75 MG (PLAVIX) TABLET ONE (14:06)
[2017-07-12] MEDS ORDERED: EPTIFIBATIDE BOLUS 20 ML IV ONE (14:24)
--- NOTE | 2017-07-12 15:20 | Cardiac Procedure Note-CS/ASA ---
Pre-Procedure Note Pre-Op Procedure Note H&P Reviewed The H&P was reviewed, patient examined and no changes noted. Date H&P Reviewed: Jul 12, 2017 Time H&P Reviewed: 13:00 Conscious Sedation Pre-Proced Time Reviewed: 13:00 ASA Class: 3 Airway Mallampati Classification: (pilot point appropriate class) I. II. III, IV Lungs Heart ASA score ASA 1: a normal healthy patient ASA 2: a patient with a mild systemic disease (mid diabetes, controlled hypertension, obesity ASA 3: a patient with a severe systemic disease that limits activity (angina , COPD, prior Myocardial infarction) ASA 4: a patient with an incapacitating disease that is a constant threat to life (CHF, renal failure) ASA 5: a moribund patient not expected to survive 24 hrs. (ruptured aneurysm) ASA 6: a declared brain patient whose organs are being harvested. For emergent operations, add the letter E after the classification Grade 1 Sedation Plan: Analgesia, Amnesia, Plan communicated to team members, Discussed options with patient/fam, Discussed risks with patient/fam Note The patient is an appropriate candidate to undergo the planned procedure, sedation, and anesthesia. The patient immediately re-assessed prior to indication. Dorothea SIFUENTES MD Jul 12, 2017 3:20 pm
--- NOTE | 2017-07-12 15:23 | Cardiology Post Procedure Note ---
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 Findings/Procedure Note Occluded OM artery just at the distal edge of previous stent. Significant clot burden - treated successfully with KENNEDY x1. Resolute Integrity 2.5x26mm. Unsuccessful PCI to PRINTING SERVICES COORDINATOR of RCA since could not cross the lesion with wire. EF 20%. LVEDP 14mmhg Anesthesia Type: Conscious Sedation Estimated blood loss (mL): 40 Contrast Amount: 240 Post-Procedure Diagnosis Post-operative diagnosis: Successful PCI to OM with Dorothea CAM MD Jul 12, 2017 3:23 pm
[2017-07-12] MEDS ORDERED: PATIENT MAY USE OWN MEDS, ALL PO SCH (15:30)
[2017-07-12] MEDS: OMEGA 3 (FISH OIL) 1000 MG CAP PO SCH ×2 (17:35→18:59)
[2017-07-12] MEDS: GABAPENTIN 600 MG (NEURONTIN) TAB PO SCH ×2 (17:35→22:06)
--- NOTE | 2017-07-12 18:06 | CARDIAC CATHETERIZATION ---
DATE OF SERVICE: 07/12/2017 TITLE REPORT: Coronary Angiography, Left Heart Catheterization, And PCI Report. INDICATION: Non-ST elevation AL. PREOPERATIVE DIAGNOSIS: Non-ST elevation myocardial infarction. POSTOPERATIVE DIAGNOSES: 1. Non-ST elevation myocardial infarction. 2. Total occlusion of obtuse marginal artery, treated successfully with one drug-eluting stent. 3. Unsuccessful percutaneous coronary intervention to a chronic total occlusion of the right coronary artery. HISTORY: The patient is a 46-year-old gentleman, who is an active smoker. He has previous history of coronary artery disease with Promus stent placed in the OM artery previously. He presented with prolonged episode of chest pain with positive cardiac enzymes. His working diagnosis was non-ST elevation AL. He was scheduled for angiography urgently. Smoking cessation was strongly recommended. PROCEDURES PERFORMED: 1. Coronary angiography. 2. Left heart catheterization. 3. Successful percutaneous coronary intervention to the obtuse marginal artery with a drug-eluting stent. 4. Unsuccessful percutaneous coronary intervention of the proximal chronic total occlusion of right coronary artery, which was a chronic total occlusion. COMPLICATIONS: None. SPECIMEN: None. ANTICOAGULATION: IV heparin, Integrilin bolus. ANESTHESIA: Conscious sedation. ESTIMATED BLOOD LOSS: 40 cc. CONTRAST: 240 mL of omnipaque. FLUOROSCOPY DOSE: 1808. FLUOROSCOPY TIME: 26.4 minutes. DESCRIPTION OF PROCEDURE: The patient was brought to the slab puller after informed consent was taken. All the risks and complication were explained in detail. He was draped and prepped in the usual sterile fashion. Access was gained in the right radial artery with a 6-Taiwanese sheath. Coronary angiography of the left system and left heart catheterization was performed with a Riki catheter. Right coronary artery was engaged with a JR4 catheter. FINDINGS: 1. Left heart catheterization, aortic pressure 110/59 mmHg. LV pressure is 95/44 mmHg. LVEDP was 14 mmHg. There was no gradient across the aortic valve. Severe LV systolic dysfunction with an EF of 20%. Severe global hypokinesis. 2. Left main: Mild mid disease 10 to 20%. 3. LAD: The LAD is a transapical vessel with no disease. It supplies collateral to the RCA. 4. Left circumflex artery: Occluded obtuse marginal artery at the distal portion of a previous stent. 5. RCA totally occluded at the proximal segment. No distal filling noted. Supplied by collaterals from the LAD. RECOMMENDATIONS: 1. PCI to the obtuse marginal artery is recommended. 2. PCI to the RCA QUANTITATIVE RESEARCH ANALYST is recommended. PERCUTANEOUS CORONARY INTERVENTION DETAILS: We took a JL3.5 guide catheter. Whisper extra support guidewire and IV heparin for anticoagulation. A double bolus of Integrilin was given during the procedure. Act was over 200 seconds. The lesion was crossed with a Whisper wire and a 2.0 x 15 balloon. Balloon inflation was performed with 8 atmospheres for 30 seconds and another one with 6 atmospheres for 11 seconds, a faint feeling was noted; therefore we took another enlarged 2.5 x 20 balloon and did more aggressive ballooning in the obtuse marginal artery starting from the distal edge of the previously placed stent. These inflations were done from 6 and 9 atmospheres for around a minute. Significantly improved blood flow was noted. Significant clot burden was noted. Therefore, double bolus of Integrilin was given at this point in time. We then took a Resolute Integrity 2.5 x 26 mm drug-eluting stent and did an overlap with the previous Promus 2.5 x 12 stent and covered the lesion in the mid portion of the OM. The stent was deployed at atmospheres for 60 seconds. We then used the same balloon to post-dilate the overlap area at 14 atmospheres for 31 seconds. The stent balloon was taken out and post-angiogram revealed excellent results with no residual stenosis and RUSLAN 3 flow. We then took a JR4 guide catheter and engaged the RCA. We then took a Whisper extra support wire and a 2.0 x 15 balloon and tried to cross it. However, we were not able to cross. There is a small branch at the level of the occlusion and we kept on going into that particular branch. There is also a lack of support with this particular guide catheter. We therefore took the balloon and the wire out of the system. Post-angiogram did not show any significant vascular complication. IMPRESSION AND CONCLUSION: 1. Non-ST elevation myocardial infarction, successful percutaneous coronary intervention with drug-eluting stent, Resolute Integrity 2.5 x 26 mm in the obtuse marginal artery overlapping with the previously placed stent. 2. Unsuccessful percutaneous coronary intervention of chronic total occlusion of the right coronary artery due to the fact that we could not cross the lesion with wire and a balloon. 3. Severe left ventricular systolic dysfunction with an ejection fraction of 20%. 4. LifeVest will be recommended for primary prevention of sudden cardiac . 5. The patient will continue dual antiplatelet therapy for at least a year. 6. The patient will also continue statin, beta mery and CAMACHO inhibitor for life. 7. Smoking cessation was strongly recommended. Job ID: [id number] DocumentID: [id number] Dictated Date: 07/12/2017 15:38:08 Tube Balancer Date: 07/12/2017 18:05:14 Dictated By: ROQUE SIFUENTES MD
[2017-07-12] MEDS: GEMFIBROZIL 600 MG (LOPID) TAB PO SCH (22:05)
[2017-07-12] MEDS: ATORVASTATIN 40 MG (LIPITOR) TABLET PO SCH (22:06)
[2017-07-12] MEDS: CARISOPRODOL 350 MG (SOMA) TAB PO SCH (22:08)
[2017-07-13 01:27] VITALS: BP 111/61
[2017-07-13] MEDS: NS IV 1000 ML 1,000 ML IV SCH ×3 (01:56→21:16)
[2017-07-13 04:08] VITALS: BP 109/65
[2017-07-13 04:19] LABS: MEAN PLATELET VOLUME 9.6 FL (7.4-10.4); RED BLOOD COUNT 4.39 10^6/uL (4.35-5.85); WHITE BLOOD COUNT 11.1 10^3/uL (4.3-11.0)
[2017-07-13 04:36] LABS: ANION GAP 8 MMOL/L (5-14); BLOOD UREA NITROGEN 9 MG/DL (7-18); BUN/CREATININE RATIO 12; CALCIUM 8.8 MG/DL (8.5-10.1); CARBON DIOXIDE 27 MMOL/L (21-32); CHLORIDE 104 MMOL/L (98-107); CREATININE SERUM 0.74 MG/DL (0.60-1.30); GFR ESTIMATED > 60; GLUCOSE 101 MG/DL (70-105); SODIUM 139 MMOL/L (135-145)
[2017-07-13] MEDS: OMEGA 3 (FISH OIL) 1000 MG CAP PO SCH ×3 (06:48→17:46)
[2017-07-13 08:00] VITALS: BP 126/68
[2017-07-13] MEDS: lisINopril 5 MG (PRINIVIL) TABLET PO SCH (08:03)
[2017-07-13] MEDS: GABAPENTIN 600 MG (NEURONTIN) TAB PO SCH ×3 (08:04→20:17)
[2017-07-13] MEDS: CLOPIDOGREL 75 MG (PLAVIX) TABLET PO SCH (08:04)
[2017-07-13] MEDS: ASPIRIN E.C. 81 MG (ECOTRIN) TAB PO SCH (08:04)
[2017-07-13] MEDS ORDERED: ASPIRIN E.C. 81 MG (ECOTRIN) TAB PO SCH (09:00)
[2017-07-13] MEDS: GEMFIBROZIL 600 MG (LOPID) TAB PO SCH ×2 (11:22→20:17)
--- NOTE | 2017-07-13 11:52 | Progress Note-Hospitalist ---
Progress Note HPI/CC on Admission CC: Chest pain HPI: This is a 46 yoWM pt who presented to the ER with SOB and CP. 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 Physical exam stable. 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 Acevedo. Progress Notes/Assess & Plan Date Seen 07/13/17 Time Seen by Provider: 11:00 Admission Dx/Process Chest pain in known CAD pt with previous TN and stent placement at 42yo Smoker Diagonsis/Assessment & Plan Pt doing well. Reviewed cath report awaiting Life Vest. BM+ Eating and drinking well Checked meds and labs AFVSS, Pleasant, O x 3 RRR, CTAB diminished in bases No edema Assessment: Chest pain in known CAD pt with previous TN and stent placement at 42yo now with NSTEMI s/p cath but could not cross lesion in RCA so needs referral to [facility] after DC but significantly depressed systolic function at 20% needs Life Vest prior to DC Smoker Plan: Life Vest Monitor pt closely for cardiac arrhythmia Dispo per Cardiology after Life Vest SONIYA ACEVEDO DO Jul 13, 2017 11:52
[2017-07-13 12:00] VITALS: BP 81/68
--- NOTE | 2017-07-13 12:23 | Cardiology Progress Note ---
Cardiology SOAP Progress Note Subjective: no further chest pain Objective: I&O/Vital Signs Vital Sign - Last 12Hours 07/13/17 07/13/17 07/13/17 07/13/17 01:00 01:27 04:08 07:00 Temp 96.9 Pulse 68 64 66 73 Resp 18 20 B/P (MAP) 111/61 109/65 Pulse Ox 94 93 O2 Delivery Nasal Cannula Nasal Cannula O2 Flow Rate 2.00 2.00 07/13/17 07/13/17 07/13/17 07:30 08:00 09:00 Temp 99.7 Pulse 67 Resp 20 B/P (MAP) 126/68 Pulse Ox 97 96 95 O2 Delivery Nasal Cannula Room Air Room Air O2 Flow Rate 2.00 Weight (Pounds): 184 Weight (Ounces): 0.0 Weight (Calculated Kilograms): 83.980607 Constitutional: No appears stated age, No AAO x 3, No apparent distress, No PERRL, No well-developed, No well-nourished, No other Respiratory: No accessory muscle use, No respiratory distress, No chest tender , No chest expansion is symmetric, No chest is bilaterally symmetric, No lungs clear to percussion, No lungs clear to auscultation, No crackles, No rhonchi, No rales, No stridor, No wheezing, No pleural rub, No other Cardiovascular: No regular rate-rhythm, No irregularly irregular, No extra beats, No parasternal heave is noted, No JVD, No edema, No bradycardia, No tachycardia, No point of maximal impulse, No cardiac thrills are palpable, No S1 and S2, No gallop/S3, No gallop/S4, No diastolic murmur, No systolic murmur, No friction rub, No click, No other Gastrointestional: No tender, No soft, No round, No distended, No pulsatile mass, No organomegaly, No guarding, No rebound, No tenderness, No hernia, No mass, No audible bowel sounds, No abnormal bowel sounds, No abdominal bruits, No spleenomegaly, No other Extremities: No normal range of motion, No non-tender, No normal inspection, No pedal edema, No calf tenderness, No normal capillary refill, No pelvis stable , No calf tenderness, No inflammation, No pedal edema, No slow capillary refill , No swelling, No other, No abrasion, No clubbing, No cyanosis, No ecchymosis, No laceration, No no lower extremity edema bilateral, No significant edema, No tenderness, No wound Neurologic/Psychiatric: No sign painter II-XII nml as tested, No no motor/sensory deficits, No alert, No normal mood/affect, No oriented x 3, No abnormal cerebellar tests, No abnormal sign painter II-XII, No abnormal gait, No aphasia, No EOM palsy, No facial droop, No motor weakness, No sensory deficit, No depressed affect, No disoriented x 3, No other, No grossly intact, No power is 5/5 both on sides Skin: No normal color, No warm/dry, No cyanosis, No cool, No diaphoresis, No damp, No ecchymosis, No jaundice, No mottled, No pallor, No rash, No tattoos/ piercings, No ulcerations, No rash on exposed areas, No ulcerations on exposed areas, No other Results/Procedures: Labs Laboratory Tests 07/13/17 03:08: White Blood Count 11.1H, Red Blood Count 4.39, Hemoglobin 12.8L, Hematocrit 39L , Mean Corpuscular Volume 88, Mean Corpuscular Hemoglobin 29, Mean Corpuscular Hemoglobin Concent 33, Red Cell Distribution Width 14.0, Platelet Count 252, Mean Platelet Volume 9.6, Sodium Level 139, Potassium Level 4.0, Chloride Level 104, Carbon Dioxide Level 27, Anion Gap 8, Blood Urea Nitrogen 9, Creatinine 0.74, Estimat Glomerular Filtration Rate > 60, BUN/Creatinine Ratio 12, Glucose Level 101, Calcium Level 8.8 A/P: Assessment/Dx: Non-STEMI Plan: Non-STEMI: coronary angiography showed occluded distal portion of a previous OM artery stent. This was successfully treated with another drug-eluting stent with good flow distally. Patient to continue dual antiplatelet therapy for at least a year. We'll also requires beta mery, CAMACHO inhibitor and statin therapy. Hypertriglyceridemia: Previous severe hypertriglyceridemia and is on gemfibrozil. Hyperlipidemia: significantly elevated LDL as well. I have given moderate dose statin therapy due to the concern off drug drug interaction with gemfibrozil. Active smoking: Strongly recommended to quit. LVEF is 30-35 percent. We are waiting for a LifeVest approval. Patient will be discharged once life vest is placed. Patient will follow-up with Dr. Rhoades. the patient also has occluded RCA and I have spoken to at for possible intervention to DNA ANALYST RCA. Thank you for your consultation. Please call me if you have any questions. Dacia Duran MD, FACP, FACC, FSCAI, FHRS, CCDS Interventional Cardiology Cardiac Electrophysiology Vascular Medicine and Endovascular Interventions Clinical Quality Measures AMI/AHF: ASA po Prior to arrival: Dorothea Locke MD Jul 13, 2017 12:22 pm
[2017-07-13] MEDS: warFARin 5 MG (COUMADIN) TAB PO SCH (14:36)
[2017-07-13 16:00] VITALS: BP 102/59
[2017-07-13] MEDS: HYDROcodone/APAP 7.5 MG/325 MG (LORTAB, LORCET PLUS) TABLET PO PRN (18:00)
[2017-07-13 20:00] VITALS: BP 86/60
[2017-07-13] MEDS: ATORVASTATIN 40 MG (LIPITOR) TABLET PO SCH (20:16)
[2017-07-13] MEDS: CARISOPRODOL 350 MG (SOMA) TAB PO SCH (20:17)
[2017-07-14] VITALS (10 sets, daily range): BP systolic 88–114; BP diastolic 54–71
[2017-07-14] MEDS: HYDROcodone/APAP 7.5 MG/325 MG (LORTAB, LORCET PLUS) TABLET PO PRN ×3 (03:21→20:55)
[2017-07-14] MEDS: NS IV 1000 ML 1,000 ML IV SCH ×2 (07:17→17:17)
[2017-07-14] MEDS: OMEGA 3 (FISH OIL) 1000 MG CAP PO SCH ×3 (07:40→17:22)
[2017-07-14] MEDS: CLOPIDOGREL 75 MG (PLAVIX) TABLET PO SCH (09:21)
[2017-07-14] MEDS: ASPIRIN E.C. 81 MG (ECOTRIN) TAB PO SCH (09:21)
[2017-07-14] MEDS: GABAPENTIN 600 MG (NEURONTIN) TAB PO SCH ×3 (09:21→20:55)
[2017-07-14] MEDS: GEMFIBROZIL 600 MG (LOPID) TAB PO SCH ×2 (09:21→20:55)
[2017-07-14] MEDS: lisINopril 5 MG (PRINIVIL) TABLET PO SCH (09:21)
[2017-07-14 10:48] LABS: INR 1.1 (0.8-1.4); PROTHROMBIN TIME PATIENT 14.2 SEC (12.2-14.7)
--- NOTE | 2017-07-14 11:37 | Cardiology Progress Note ---
Cardiology SOAP Progress Note Subjective: No further chest pain. Objective: I&O/Vital Signs Vital Sign - Last 12Hours 07/14/17 07/14/17 07/14/17 07/14/17 00:00 01:00 04:00 07:00 Temp 98.7 98.8 Pulse 72 71 69 B/P (MAP) 90/63 99/61 105/63 Pulse Ox 94 95 95 O2 Delivery Nasal Cannula Nasal Cannula Nasal Cannula O2 Flow Rate 2.00 2.00 2.00 07/14/17 07/14/17 07/14/17 07/14/17 07:00 08:36 09:00 10:00 Temp 99.8 Pulse 63 69 Resp 20 B/P (MAP) 106/60 103/68 114/71 Pulse Ox 96 96 97 O2 Delivery Nasal Cannula Nasal Cannula Nasal Cannula O2 Flow Rate 2.00 2.00 2.00 07/14/17 11:00 B/P (MAP) 88/54 Pulse Ox 97 O2 Delivery Nasal Cannula O2 Flow Rate 2.00 Weight (Pounds): 184 Weight (Ounces): 0.0 Weight (Calculated Kilograms): 83.425464 Constitutional: No appears stated age, No AAO x 3, No apparent distress, No PERRL, No well-developed, No well-nourished, No other Respiratory: No accessory muscle use, No respiratory distress, No chest tender , No chest expansion is symmetric, No chest is bilaterally symmetric, No lungs clear to percussion, No lungs clear to auscultation, No crackles, No rhonchi, No rales, No stridor, No wheezing, No pleural rub, No other Cardiovascular: No regular rate-rhythm, No irregularly irregular, No extra beats, No parasternal heave is noted, No JVD, No edema, No bradycardia, No tachycardia, No point of maximal impulse, No cardiac thrills are palpable, No S1 and S2, No gallop/S3, No gallop/S4, No diastolic murmur, No systolic murmur, No friction rub, No click, No other Gastrointestional: No tender, No soft, No round, No distended, No pulsatile mass, No organomegaly, No guarding, No rebound, No tenderness, No hernia, No mass, No audible bowel sounds, No abnormal bowel sounds, No abdominal bruits, No spleenomegaly, No other Extremities: No normal range of motion, No non-tender, No normal inspection, No pedal edema, No calf tenderness, No normal capillary refill, No pelvis stable , No calf tenderness, No inflammation, No pedal edema, No slow capillary refill , No swelling, No other, No abrasion, No clubbing, No cyanosis, No ecchymosis, No laceration, No no lower extremity edema bilateral, No significant edema, No tenderness, No wound Neurologic/Psychiatric: No human service technician II-XII nml as tested, No no motor/sensory deficits, No alert, No normal mood/affect, No oriented x 3, No abnormal cerebellar tests, No abnormal human service technician II-XII, No abnormal gait, No aphasia, No EOM palsy, No facial droop, No motor weakness, No sensory deficit, No depressed affect, No disoriented x 3, No other, No grossly intact, No power is 5/5 both on sides Skin: No normal color, No warm/dry, No cyanosis, No cool, No diaphoresis, No damp, No ecchymosis, No jaundice, No mottled, No pallor, No rash, No tattoos/ piercings, No ulcerations, No rash on exposed areas, No ulcerations on exposed areas, No other Results/Procedures: Labs Laboratory Tests 07/14/17 10:30: Prothrombin Time 14.2, INR Comment 1.1 A/P: Assessment/Dx: Non-STEMI Plan: Non-STEMI: coronary angiography showed occluded distal portion of a previous OM artery stent. This was successfully treated with another drug-eluting stent with good flow distally. Patient to continue dual antiplatelet therapy for at least a year. We'll also requires beta mery, CAMACHO inhibitor and statin therapy. Hypertriglyceridemia: Previous severe hypertriglyceridemia and is on gemfibrozil. Hyperlipidemia: significantly elevated LDL as well. I have given moderate dose statin therapy due to the concern off drug drug interaction with gemfibrozil. Active smoking: Strongly recommended to quit. LVEF is 30-35 percent. We are waiting for a LifeVest approval. Patient will be discharged once life vest is placed. Patient will follow-up with Dr. Rhoades. the patient also has occluded RCA and I have spoken to at for possible intervention to TON CONTAINER FILLER RCA. Thank you for your consultation. Please call me if you have any questions. Dacia Duran MD, FACP, FACC, FSCAI, FHRS, CCDS Interventional Cardiology Cardiac Electrophysiology Vascular Medicine and Endovascular Interventions Clinical Quality Measures AMI/AHF: ASA po Prior to arrival: Dorothea Locke MD Jul 14, 2017 11:37 am
[2017-07-14] MEDS: warFARin 5 MG (COUMADIN) TAB PO SCH (12:05)
--- NOTE | 2017-07-14 13:09 | Progress Note-Hospitalist ---
Progress Note HPI/CC on Admission CC: Chest pain HPI: This is a 46 yoWM pt who presented to the ER with SOB and CP. 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 Physical exam stable. 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 Acevedo. Progress Notes/Assess & Plan Date Seen 07/14/17 Time Seen by Provider: 12:00 Admission Dx/Process Chest pain in known CAD pt with previous AL and stent placement at 42yo Smoker Diagonsis/Assessment & Plan Pt doing well. Awaiting Life Vest BM+ Eating and drinking well Checked meds and labs Wheezing noted on exam so ordered Nebs AFVSS, Pleasant, O x 3 RRR, mild wheezing noted No edema Assessment: Chest pain in known CAD pt with previous AL and stent placement at 42yo now with NSTEMI s/p cath but could not cross lesion in RCA so needs referral to [facility] after DC but significantly depressed systolic function at 20% needs Life Vest prior to DC Smoker Wheezing on exam Plan: Life Vest Monitor pt closely for cardiac arrhythmia Dispo per Cardiology after Life Vest SONIYA Dougherty DO Jul 14, 2017 13:09
[2017-07-14] MEDS: RT-ALBUTEROL SULF 2.5 MG/3 ML PRE-MIX VIAL IH SCH ×2 (13:14→18:16)
[2017-07-14] MEDS: CARISOPRODOL 350 MG (SOMA) TAB PO SCH (20:55)
[2017-07-14] MEDS: ATORVASTATIN 40 MG (LIPITOR) TABLET PO SCH (20:55)
[2017-07-15] MEDS: NS IV 1000 ML 1,000 ML IV SCH (03:25)
[2017-07-15 05:19] LABS: INR 1.2 (0.8-1.4); PROTHROMBIN TIME PATIENT 15.5 SEC (12.2-14.7)
[2017-07-15] MEDS: OMEGA 3 (FISH OIL) 1000 MG CAP PO SCH ×2 (06:35→12:08)
[2017-07-15] MEDS: HYDROcodone/APAP 7.5 MG/325 MG (LORTAB, LORCET PLUS) TABLET PO PRN (06:35)
[2017-07-15 06:36] VITALS: BP 103/63
[2017-07-15] MEDS ORDERED: CLOP75TA28 PO (07:52)
--- NOTE | 2017-07-15 08:06 | Discharge Summary-Hospitalist ---
Diagnosis/Chief Complaint Date of Admission Jul 11, 2017 at 4:38 pm Date of Discharge Discharge Date: Jul 15, 2017 Admission Diagnosis Chest pain in known CAD pt with previous NV and stent placement at 42yo Smoker Discharge Diagnosis NSTEMI Discharge Summary Procedures Cardiac Cath Consultations Dr Duran- Cardiology Discharge Physical Examination Allergies: Coded Allergies: Penicillins (Unverified Allergy, Mild, 01/27/09) Vitals & I&Os Vital Signs Date Time Temp Pulse Resp B/P (MAP) Pulse Ox O2 Delivery O2 Flow Rate FiO2 07/15/17 07:00 71 07/15/17 06:36 97.0 18 103/63 96 Room Air 07/14/17 21:00 2.00 Hospital Course Pt is a 46yoCM with PMH of CAD, NV at 42yo, and CHF who presented to the ER with SOB and chest pain. He was found to have an NSTEMI and was taken to tag and label cutter which showed occlusion of his previously placed stent. This was treated with a KENNEDY. He was started on DAPT to be continued for the next year. He was found to have an EF of 30% and was fitted for a LifeVest prior to discharge. Labs (last 24 hrs) Laboratory Tests 07/14/17 10:30: Prothrombin Time 14.2, INR Comment 1.1 07/15/17 04:45: Prothrombin Time 15.5H, INR Comment 1.2 Pending Labs Laboratory Tests 07/15/17 04:45: Prothrombin Time 15.5, INR Comment 1.2 Radiology Reviewed Echo shows EF of 30% with akinesis of the inferior and lateral myocardium Discussion & Recommendations Greater than 30m of time spent coordinating discharge. Discharge Home Medications: Active Scripts Active Clopidogrel (Clopidogrel Bisulfate) 75 Mg Tablet 75 Mg PO DAILY Reported Tizanidine HCl 4 Mg Tablet 8 Mg PO TID PRN TAKES 2 (4MG) TABLETS Fish Oil 1,000 mg Capsule ([place] 3 Polyunsat Fatty Acids) 1,000 Mg Cap 1,000 Mg PO TID Warfarin Sodium 5 Mg Tablet 5 Mg PO SUTUTHFRSA Warfarin Sodium 5 Mg Tablet 7.5 Mg PO MOWE TAKES 1 & 1/2 (5MG) TABLETS Metoprolol Succinate 25 Mg Tab.er.24h 25 Mg PO DAILY Atorvastatin Calcium 40 Mg Tablet 40 Mg PO DAILY Lisinopril 2.5 Mg Tablet 2.5 Mg PO DAILY Gemfibrozil 600 Mg Tablet 600 Mg PO BID Hydrocodon-Acetaminoph 7.5-325 (Hydrocodone/Acetaminophen) 1 Each Tablet 1 Tab PO TID PRN Gabapentin 600 Mg Tablet 600 Mg PO TID Carisoprodol 350 Mg Tablet 350 Mg PO HS Aspirin EC (Aspirin) 81 Mg Tablet.dr 81 Mg PO DAILY Instructions to patient/family Please see electronic discharge instructions given to patient. Clinical Quality Measures AMI/AHF: Ejection Fraction: <40 (FREDY/ARB Indicated) D/C Medications Addressed: Fredy inhibitors, Beta mery D/C Inst. for HF given: Yes ASA po Prior to arrival: No Previously on statin, BB, ASA, and lisinopril. Plavix added. DVT/VTE Risk/Contraindication: Risk Factor Score Per Nursin RFS Level Per Nursing on Admit: 3=High Copy Copies To 1: MARTHA LARSON MD,RAJANI Piedra MD Jul 15, 2017 8:06 am
[2017-07-15] MEDS: CLOPIDOGREL 75 MG (PLAVIX) TABLET PO SCH (08:50)
[2017-07-15] MEDS: GABAPENTIN 600 MG (NEURONTIN) TAB PO SCH ×2 (08:50→12:11)
[2017-07-15] MEDS: lisINopril 5 MG (PRINIVIL) TABLET PO SCH (08:50)
[2017-07-15] MEDS: ASPIRIN E.C. 81 MG (ECOTRIN) TAB PO SCH (08:50)
[2017-07-15] MEDS: GEMFIBROZIL 600 MG (LOPID) TAB PO SCH (08:50)
[2017-07-15 08:54] VITALS: BP 102/64
--- NOTE | 2017-07-15 10:26 | Cardiology Progress Note ---
Cardiology SOAP Progress Note Subjective: No cardiac complaints Objective: I&O/Vital Signs Vital Sign - Last 12Hours 07/15/17 07/15/17 07/15/17 07/15/17 01:00 06:36 07:00 08:54 Temp 97.0 97.5 Pulse 79 75 71 83 Resp 18 16 B/P (MAP) 103/63 102/64 Pulse Ox 96 97 O2 Delivery Room Air Room Air 07/15/17 10:05 O2 Delivery Room Air Weight (Pounds): 184 Weight (Ounces): 0.0 Weight (Calculated Kilograms): 83.140422 Constitutional: No appears stated age, No AAO x 3, No apparent distress, No PERRL, No well-developed, No well-nourished, No other Respiratory: No accessory muscle use, No respiratory distress, No chest tender , No chest expansion is symmetric, No chest is bilaterally symmetric, No lungs clear to percussion, No lungs clear to auscultation, No crackles, No rhonchi, No rales, No stridor, No wheezing, No pleural rub, No other Cardiovascular: No regular rate-rhythm, No irregularly irregular, No extra beats, No parasternal heave is noted, No JVD, No edema, No bradycardia, No tachycardia, No point of maximal impulse, No cardiac thrills are palpable, No S1 and S2, No gallop/S3, No gallop/S4, No diastolic murmur, No systolic murmur, No friction rub, No click, No other Gastrointestional: No tender, No soft, No round, No distended, No pulsatile mass, No organomegaly, No guarding, No rebound, No tenderness, No hernia, No mass, No audible bowel sounds, No abnormal bowel sounds, No abdominal bruits, No spleenomegaly, No other Extremities: No normal range of motion, No non-tender, No normal inspection, No pedal edema, No calf tenderness, No normal capillary refill, No pelvis stable , No calf tenderness, No inflammation, No pedal edema, No slow capillary refill , No swelling, No other, No abrasion, No clubbing, No cyanosis, No ecchymosis, No laceration, No no lower extremity edema bilateral, No significant edema, No tenderness, No wound Neurologic/Psychiatric: No heat treating furnace tender II-XII nml as tested, No no motor/sensory deficits, No alert, No normal mood/affect, No oriented x 3, No abnormal cerebellar tests, No abnormal heat treating furnace tender II-XII, No abnormal gait, No aphasia, No EOM palsy, No facial droop, No motor weakness, No sensory deficit, No depressed affect, No disoriented x 3, No other, No grossly intact, No power is 5/5 both on sides Skin: No normal color, No warm/dry, No cyanosis, No cool, No diaphoresis, No damp, No ecchymosis, No jaundice, No mottled, No pallor, No rash, No tattoos/ piercings, No ulcerations, No rash on exposed areas, No ulcerations on exposed areas, No other Results/Procedures: Labs Laboratory Tests 07/14/17 10:30: Prothrombin Time 14.2, INR Comment 1.1 07/15/17 04:45: Prothrombin Time 15.5H, INR Comment 1.2 A/P: Assessment/Dx: Non-STEMI Plan: Non-STEMI: coronary angiography showed occluded distal portion of a previous OM artery stent. This was successfully treated with another drug-eluting stent with good flow distally. Patient to continue dual antiplatelet therapy for at least a year. Continue beta mery, CAMACHO inhibitor and statin therapy. Hypertriglyceridemia: Previous severe hypertriglyceridemia and is on gemfibrozil. Hyperlipidemia: significantly elevated LDL as well. I have given moderate dose statin therapy due to the concern off drug drug interaction with gemfibrozil. Active smoking: Strongly recommended to quit. LVEF is 30-35 percent. We are waiting for a LifeVest approval. Patient will be discharged once life vest is placed, hopefully today. Patient will follow-up with Dr. Rhoades. the patient also has occluded RCA and I have spoken to at for possible intervention to MASTER STEAM YACHT RCA. Thank you for your consultation. Please call me if you have any questions. Dacia Duran MD, FACP, FACC, FSCAI, FHRS, CCDS Interventional Cardiology Cardiac Electrophysiology Vascular Medicine and Endovascular Interventions Clinical Quality Measures AMI/AHF: ASA po Prior to arrival: Dorothea Locke MD Jul 15, 2017 10:26
[2017-07-15] MEDS ORDERED: warFARin 5 MG (COUMADIN) TAB PO SCH (11:30)
[2017-07-15 12:00] VITALS: BP 101/63
== END 2017-07-15 14:45 | disposition home or self-care (01) | DRG 247 ==
LOC: EDUNIT# 15:02 → ER 15:04 → UNDOADMOB 16:38 → 4TH 16:38 → INTOOBSV 16:38 → OBSVTOIN 16:38 → 4TH 17:12 → ICU 07-12 15:57 → UNDODISIN 07-15 14:45
PROVIDERS: ADMIT Internal Medicine; ATTEND Internal Medicine
PROC: 027034Z Dilation of Coronary Artery, One Artery with Drug-eluting Intraluminal Device, Percutaneous Approach (ICD-10-PCS; principal; 2017-07-12)
PROC: 4A023N7 Measurement of Cardiac Sampling and Pressure, Left Heart, Percutaneous Approach (ICD-10-PCS; 2017-07-12)
PROC: B2151ZZ Fluoroscopy of Left Heart using Low Osmolar Contrast (ICD-10-PCS; 2017-07-12)
PROC: B2111ZZ Fluoroscopy of Multiple Coronary Arteries using Low Osmolar Contrast (ICD-10-PCS; 2017-07-12)
DX: I21.4 Non-ST elevation (NSTEMI) myocardial infarction (principal); I25.10 Atherosclerotic heart disease of native coronary artery without angina pectoris; I25.82 Chronic total occlusion of coronary artery; I50.20 Unspecified systolic (congestive) heart failure; D68.59 Other primary thrombophilia; I10 Essential (primary) hypertension; E78.5 Hyperlipidemia, unspecified; E78.1 Pure hyperglyceridemia; F17.210 Nicotine dependence, cigarettes, uncomplicated; K21.9 Gastro-esophageal reflux disease without esophagitis; R06.2 Wheezing; Z82.49 Family history of ischemic heart disease and other diseases of the circulatory system; Z79.01 Long term (current) use of anticoagulants; Z95.5 Presence of coronary angioplasty implant and graft
CPT/HCPCS: 36415; 71010; 80048; 80053; 80061; 83735; 83874; 84484; 85007; 85025; 85027; 85347; 85379; 85610; 85730; 92928; 93005; 93041; 93306; 93458; 94640; 94760; 96374; 96375

== ENCOUNTER 2017-08-02 11:23 | Emergency (ER) | payer BC ==
[~2017-08-02] VITALS: Ht 160 cm; Wt 87.8 kg
[~2017-08-02 11:23] MED LIST changes: +ASPI-983 PO; +ATOR40TA70 PO; +CARI350T27 PO; +CLOP75TA28 PO; +GABA600T2 PO; +GEMF600T3 PO; +HYDR-3816 PO; +LISI2.5T PO; +METO-387 PO; -ONDANSETRON 4 MG/2 ML (SDV) Z0FRAN ONE; +TIZA4TAB3 PO; +WARF-48 PO
--- OUTSIDE RECORDS SUMMARY | 2017-08-02 11:31 | XMS REPORT | Continuity of Care Document ---
Author Author [employer] Organization [facility] Address Unknown Phone Unavailable Care Team Providers Care Project Estimator Name Role Phone [employer] Unavailable Unavailable Problems Medications Allergies, Adverse Reactions, Alerts Immunizations Results Vital Signs Encounters Procedures Plan of Care Social History Assessment and Plan Family History Value Date Source Advance Directives Order Name Results Value Date Source
--- OUTSIDE RECORDS SUMMARY | 2017-08-02 11:32 | XMS REPORT | Clinical Summary ---
Author Author [facility] Organization [facility] Address Unknown Phone Unavailable Care Team Providers Care Auto Claim Representative Name Role Phone PCP Unavailable Source Comments Some departments are not documenting in the electronic medical record. If you do not see the information that you expected, contact Release of Information in the Health Information Management department at [phone] for further assistance in locating additional records.[facility] Allergies Not on File Current Medications Not on file Active Problems Not on file Encounters Date Type Specialty Care Team Description 07/24/2017 Telephone Cardiology Alee Awad RN Referral (FLATWORK CATCHER - Dr. Warner) from Last 3 Months Social History Tobacco Use Types Packs/Day Years Used Date Never Assessed Sex Assigned at Date Recorded Not on file Last Filed Vital Signs Not on file Plan of Treatment Health Maintenance Due Date Last Done Comments PHYSICAL (COMPREHENSIVE) 1979 EXAM PERTUSSIS VACCINE 1983 TETANUS VACCINE 1989 INFLUENZA VACCINE 03/26/2017 Results Not on filefrom Last 3 Months
--- OUTSIDE RECORDS SUMMARY | 2017-08-02 11:32 | XMS REPORT | Encounter Summary ---
Author Author [facility] Organization [facility] Address Unknown Phone Unavailable Care Team Providers Care Kaiawhina Name Role Phone PCP Unavailable Reason for Visit * Reason Comments Referral MEDICARE SALES REPRESENTATIVE - Dr. Warner Encounter Details Date Type Department Care Team Description 07/24/2017 Telephone [facility] Cardiology Alee Awad RN Referral (MEDICARE SALES REPRESENTATIVE - [phone]) [facility] [address] [place] [address] Social History Tobacco Use Types Packs/Day Years Used Date Never Assessed Sex Assigned at Date Recorded Not on file as of this encounter Miscellaneous Notes * Telephone Encounter - Alee Awad RN - 08/01/2017 6:51 PM CLIENT SUPPORT REPRESENTATIVE Dr. Warner reviewed cath images this afternoon. He is agreeable to bringing pt in for high risk PCI (retrograde approach - CIRC/RCA). Dr. Warner will need a couple hours blocked for the case. Dr. Warner inquiring if pt has had a recent nuclear thallium or viability study. LM for Malgorzata to please call and let us know. * Telephone Encounter - Alee Awad RN - 07/30/2017 11:32 AM CLIENT SUPPORT REPRESENTATIVE CD not yet received. Connected with Malgorzata at Dr. Duran's office over the phone this morning to check in. She states she will call the hospital to ensure they have been mailed. If they haven't, asked that they please be sent via [employer] overnight. She will keep us posted. Malgorzata phone: , fax: * Telephone Encounter - Alee Awad RN - 07/24/2017 3:41 PM CLIENT SUPPORT REPRESENTATIVE Per Favian, no precert is needed for the cath procedure. Will await the cath images on CD. Called Malgorzata to update her that we will plan to schedule OV and cath on the same day once Dr. Warner has reviewed the images. * Telephone Encounter - Alee Awad RN - 07/24/2017 12:14 PM CLIENT SUPPORT REPRESENTATIVE Received a referral for possible MEDICARE SALES REPRESENTATIVE procedure with Dr. Warner from Dr. Duran in [place], [place]. Checking with Favian about insurance precert then will schedule the patient accordingly. Prefer to schedule H&P and cath on the same day due to the patient drive and Dr. Warner's limited clinic availability and to expedite getting pt to procedure. Will await the feedback. Paper records received from LILA Mcgarry. She is sending the cath images on CD via [employer]. We will need Dr. Warner to review the images before patient is scheduled - to assess whether pt is a candidate for high risk PCI. in this encounter Plan of Treatment Not on fileas of this encounter Visit Diagnoses Not on filein this encounter
--- NOTE | 2017-08-02 11:48 | ED General ---
General Chief Complaint: General Problems/Pain Stated Complaint: LUMP ON CHEST Nursing Triage Note: PATIENT WAS IN CARDIAC REHAB THIS MORNING AND WHEN THEY WERE REMOVING ELECTRODES HE NOTICED A PAINFUL LUMP ON THE LEFT SIDE OF HIS ANTERIOR CHEST. IT DOES NOT HURT UNLESS PALPATED. NO DECREASE IN ROM. NO OTHER SYMPTOMS. Nursing Sepsis Screen: No Definite Risk Source of Information: Patient, Spouse Exam Limitations: No Limitations History of Present Illness Time Seen by Provider: 11:35 Initial Comments 47-year-old male patient presents to the emergency department with complaints of a painful lump of the left chest/breast when cardiac rehabilitation removed to the electrode patches today. Patient denies any known injury. Denies pain unless areas palpated. Patient is currently on blood thinners. Patient does have 3 small dogs at home which his reports "jump on his chest and belly frequently." Denies chest pain, SOA, dizziness, fever, chills, or cough. Timing/Duration: 1-3 Hours Modifying Factors: worse with Other (worse with palpation) Allergies and Home Medications Allergies Coded Allergies: Penicillins (Unverified Allergy, Mild, 01/27/09) Home Medications Aspirin 81 Mg Tablet.dr, 81 MG PO DAILY, (Reported) Atorvastatin Calcium 40 Mg Tablet, 40 MG PO DAILY, (Reported) Carisoprodol 350 Mg Tablet, 350 MG PO HS, (Reported) Clopidogrel Bisulfate 75 Mg Tablet, 75 MG PO DAILY, #30 Prescribed by: RAJANI HELMS on 07/15/17 0752 Gabapentin 600 Mg Tablet, 600 MG PO TID, (Reported) Gemfibrozil 600 Mg Tablet, 600 MG PO BID, (Reported) Hydrocodone/Acetaminophen 1 Each Tablet, 1 TAB PO TID PRN for PAIN-MODERATE, ( Reported) Lisinopril 2.5 Mg Tablet, 2.5 MG PO DAILY, (Reported) Metoprolol Succinate 25 Mg Tab.er.24h, 25 MG PO DAILY, (Reported) [place] 3 Polyunsat Fatty Acids 1,000 Mg Cap, 1,000 MG PO TID, (Reported) Tizanidine HCl 4 Mg Tablet, 8 MG PO TID PRN for MUSCLE SPASMS, (Reported) TAKES 2 (4MG) TABLETS Warfarin Sodium 5 Mg Tablet, 7.5 MG PO MoWe, (Reported) TAKES 1 & 1/2 (5MG) TABLETS Warfarin Sodium 5 Mg Tablet, 5 MG PO SuTuThFrSa, (Reported) Constitutional: No chills, No diaphoresis, No dizziness, No fever, No malaise Respiratory: No cough, No dyspnea on exertion, No short of breath Cardiovascular: No chest pain, No palpitations, No syncope Gastrointestinal: no symptoms reported Musculoskeletal: see HPI Skin: no symptoms reported Psychiatric/Neurological: No Symptoms Reported Hematologic/Lymphatic: Denies Anemia, Easy Bruising ((since starting blood thinners)) All Other Systems Reviewed Negative Unless Noted: Yes (Negative excepted noted.) Past Hxzwcde-Lzcgoz-Eqmoig Hx Patient Social History Recent Foreign Travel: No Contact w/Someone Who Travel: No Recent Infectious Disease Expo: No Recent Hopitalizations: No Immunizations Up To Date Date of Pneumonia Vaccine: Jul 28, 2012 Date of Influenza Vaccine: Jun 08, 2017 Seasonal Allergies Seasonal Allergies: No Surgeries History of Surgeries: Yes (STENTS) Respiratory History of Respiratory Disorde: Yes Cardiovascular History of Cardiac Disorders: Yes (STENT) Cardiac Disorders: Heart Attack, High Cholesterol, Hypertension Neurological History of Neurological Disord: No Reproductive System Hx Reproductive Disorders: No Gastrointestinal History of Gastrointestinal Di: Yes Gastrointestinal Disorders: Gastroesophageal Reflux Musculoskeletal History of Musculoskeletal Dis: Yes Musculoskeletal Disorders: Chronic Back Pain Endocrine History of Endocrine Disorders: No Cancer History of Cancer: No Psychosocial History of Psychiatric Problem: No Integumentary History of Skin or Integumenta: No Blood Transfusions History of Blood Disorders: Yes (PROTEIN S DEF) Reviewed Nursing Assessment Reviewed/Agree w Nursing PMH: Yes Family Medical History Significant Family History: Heart Disease, Vascular Disease Physical Exam Vital Signs Vital Sign - Last 12Hours 08/02/17 11:35 Temp 98.9 Pulse 69 Resp 20 B/P (MAP) 120/81 (94) Pulse Ox 95 O2 Delivery Room Air Capillary Refill : Less Than 3 Seconds General Appearance: No Apparent Distress, WD/WN Neck: Normal Inspection, Supple Respiratory: Lungs Clear, Normal Breath Sounds, No Accessory Muscle Use, No Respiratory Distress, Other (left chest wall shows 2 areas of ecchymosis, nodules, and soft tissue tenderness consistent with small hematoma's/contusions. ) Cardiovascular: Regular Rate, Rhythm, No Edema, No Murmur, Normal Peripheral Pulses Gastrointestinal: Non Tender, Soft, No Distended Extremity: Normal Capillary Refill, No Pedal Edema Neurologic/Psychiatric: Alert, Oriented x3, Normal Mood/Affect Skin: Normal Color, Warm/Dry, Ecchymosis (left chest wall shows 2 areas of ecchymosis, nodules, and soft tissue tenderness consistent with small hematoma's /contusions.) Progress/Results/Core Measures Suspected Sepsis Recent Fever Within 48 Hours: No Infection Criteria Present: None New/Unexplained Altered Menta: No Sepsis Screen: No Definite Risk Sepsis Diagnosis: SIRS Temperature:98.9 Pulse: 69 Respiratory Rate: 20 Blood Pressure 120 /81 Mean: 94 Results/Orders Vital Signs/I&O Vital Sign - Last 12Hours 08/02/17 08/02/17 11:35 11:52 Temp 98.9 98.9 Pulse 69 69 Resp 20 20 B/P (MAP) 120/81 (94) Pulse Ox 95 95 O2 Delivery Room Air Capillary Refill : Less Than 3 Seconds Blood Pressure Mean: 94 Departure Communication (Admissions) Progress Notes patient seen and evaluated. Findings on exam consistent with probable history of one of the patient's dogs jumping on his chest. says that patient lays down in the dogs do pounce on his chest and abdomen frequently. Patient he is ice packs as needed for pain and bruising. Patient to follow-up with his primary care provider for recheck if needed. Impression Impression: Primary Impression: Contusion of left chest wall Qualified Codes: S20.212A - Contusion of left front wall of thorax, initial encounter Disposition: 01 HOME, SELF-CARE Condition: Improved Departure-Patient Inst. Decision time for Depature: 11:47 Referrals: MARTHA LARSON MD (PCP/Family) Primary Care Physician Patient Instructions: Contusion (DC) Add. Discharge Instructions: All discharge instructions reviewed with patient and/or family. Voiced understanding. Continue usual home medications. Ice pack for 20 minute intervals as needed for the next 2-3 days. Then using a heating pad or pack if needed. Follow-up with your primary care provider as an outpatient for recheck if needed. Return in the emergency department for worsened symptoms or any other concerns. Images Torso/Trunk 1 - Contusion (hematoma), Ecchymosis, Tenderness 2 - Contusion (hematoma), Ecchymosis, Tenderness ROCHELLE FLORES Aug 02, 2017 11:48
[2017-08-02 11:52] VITALS: BP 120/81
== END 2017-08-02 11:53 | disposition home or self-care (01) ==
LOC: EDUNIT# 11:23 → ER 11:24
DX: S20.212A Contusion of left front wall of thorax, initial encounter (principal); I25.2 Old myocardial infarction; I10 Essential (primary) hypertension; E78.00 Pure hypercholesterolemia, unspecified; K21.9 Gastro-esophageal reflux disease without esophagitis; Z82.49 Family history of ischemic heart disease and other diseases of the circulatory system; Z79.82 Long term (current) use of aspirin; Z79.01 Long term (current) use of anticoagulants; Z95.5 Presence of coronary angioplasty implant and graft; X58.XXXA Exposure to other specified factors, initial encounter
CPT/HCPCS: 99281

== ENCOUNTER → 2017-08-09 | Outpatient (CLI) | payer BC ==
[2017-08-09 09:33] LABS: RED BLOOD COUNT 4.8 10^6/uL (4.35-5.85); RED CELL DISTRIBUTION WIDTH 13.9 % (10.0-14.5); WHITE BLOOD COUNT 7.4 10^3/uL (4.3-11.0)
[2017-08-09 09:53] LABS: ANION GAP 10 MMOL/L (5-14); BLOOD UREA NITROGEN 16 MG/DL (7-18); BUN/CREATININE RATIO 22; CARBON DIOXIDE 27 MMOL/L (21-32); CHLORIDE 105 MMOL/L (98-107); CREATININE SERUM 0.74 MG/DL (0.60-1.30); GFR ESTIMATED > 60; GLUCOSE 100 MG/DL (70-105); POTASSIUM 4.5 MMOL/L (3.6-5.0); SODIUM 142 MMOL/L (135-145)
== END ==
LOC: LAB 09:16
PROVIDERS: ATTEND Internal Medicine Cardiovascular Disease
DX: Z01.812 Encounter for preprocedural laboratory examination (principal); I25.119 Atherosclerotic heart disease of native coronary artery with unspecified angina pectoris
CPT/HCPCS: 36415; 80048; 85027

== ENCOUNTER 2017-09-04 11:37 | Outpatient (RCR) | payer BC ==
[~2017-09-04 11:37] MED LIST changes: +HYDR-34; +HYDR-34 PO; -HYDR-3816; -HYDR-3816 PO
[2017-09-15] MEDS ORDERED: PRD20T PO (14:27)
[2017-09-23] MEDS ORDERED: ALLO300T2 PO (09:13)
[2017-09-23] MEDS ORDERED: CLOP75TA69 PO (09:23)
[2017-09-23] MEDS ORDERED: OMEP20TA33 PO (09:23)
[2017-09-23] MEDS ORDERED: SACU1TAB PO (09:23)
[2017-09-23] MEDS ORDERED: MULT-851 PO (09:23)
[2017-09-23] MEDS ORDERED: NITR0.4T42 SL (09:23)
[2017-09-25] MEDS ORDERED: WARF-48 PO (10:49)
[2017-09-25] MEDS ORDERED: SULF1TAB35 PO (10:49)
[2017-09-25] MEDS ORDERED: HYDR-34 PO (10:49)
== END 2017-10-31 | disposition home or self-care (01) ==
LOC: CR 11:37
PROVIDERS: ATTEND Internal Medicine Cardiovascular Disease
DX: I50.9 Heart failure, unspecified (principal)
CPT/HCPCS: 93798

== ENCOUNTER → 2017-09-05 | Outpatient (CLI) | payer BC ==
[~2017-09-05] MED LIST changes: -HYDR-34; -HYDR-34 PO; +HYDR-3816; +HYDR-3816 PO
== END ==
LOC: CARD 10:30
PROVIDERS: ATTEND Internal Medicine Cardiovascular Disease
DX: I25.10 Atherosclerotic heart disease of native coronary artery without angina pectoris (principal); R07.89 Other chest pain; I10 Essential (primary) hypertension; R06.00 Dyspnea, unspecified
CPT/HCPCS: 93306

== ENCOUNTER 2017-09-15 11:42 | Emergency (ER) | payer BC ==
[~2017-09-15] VITALS: Ht 160 cm; Wt 90.7 kg
--- OUTSIDE RECORDS SUMMARY | 2017-09-15 11:46 | XMS REPORT | Clinical Summary ---
Author Author [facility] Organization [facility] Address Unknown Phone Unavailable Care Team Providers Care Haulage Engine Operator Name Role Phone PCP Unavailable Source Comments Some departments are not documenting in the electronic medical record. If you do not see the information that you expected, contact Release of Information in the Health Information Management department at [phone] for further assistance in locating additional records.[facility] Allergies Active Allergy Reactions Severity Noted Date Comments Penicillins UNKNOWN Low 08/07/2017 Current Medications Prescription Sig. Disp. Refills Start End Date Status Date atorvastatin (LIPITOR) 40 Take 40 mg by mouth Active mg tablet daily. carisoprodol(+) (SOMA) Take 350 mg by mouth at Active 350 mg tablet bedtime daily. gabapentin (NEURONTIN) Take 600 mg by mouth four Active 600 mg tablet times daily. gemfibrozil (LOPID) 600 Take 600 mg by mouth Active mg tablet twice daily. metoprolol XL (TOPROL XL) Take 25 mg by mouth Active 25 mg extended release daily. tablet [place]-3 Acid Ethyl Esters Take 1 g by mouth three Active 1 gram cap times daily. tiZANidine (ZANAFLEX) 4 Take 8 mg by mouth every Active mg tabletIndications: 8 hours as needed. MUSCLE SPASM Indications: MUSCLE SPASM warfarin (COUMADIN) 5 mg Take 5 mg by mouth as Active tabletIndications: directed. Take 7.5 mg by THROMBOTIC DISORDER mouth on Sat and Sat. Take 5 mg by mouth on Saturday, , , Sat, and Sat. Take at bedtime. Indications: THROMBOTIC DISORDER omeprazole DR(+) Take 20 mg by mouth daily Active (PRILOSEC) 20 mg capsule before breakfast. nitroglycerin (NITROSTAT) Place 0.4 mg under tongue Active 0.4 mg tablet every 5 minutes as needed for Chest Pain. Max of 3 tablets, call 911. clopiDOGrel (PLAVIX) 75 Take 75 mg by mouth Active mg tablet daily. sacubitril/valsartan Take 1 tablet by mouth Active (ENTRESTO) 24/26 mg twice daily. tablet HYDROcodone/acetaminophen Take 1 tablet by mouth Active (NORCO) 7.5/325 mg tablet every 6 hours as needed for Pain aspirin EC 81 mg Take 1 tablet by mouth 90 tablet 3 08/13/20 tabletIndications: daily for 7 days. Take 17 17 Coronary artery disease with food. involving [place] sioux coronary artery of [place] heart with angina pectoris ([facility]), Ischemic cardiomyopathy, NSTEMI (non-ST elevated myocardial infarction) ([facility]), Tobacco abuse Active Problems Problem Noted Date CAD (coronary artery disease) 08/12/2017 Coronary artery disease involving [place] sioux coronary artery of [place] si[place] heart with angina pectoris ([facility]) Overview: 07/12/17 - NSTEMI at [place], [place]. Successful PCI with a Resolute Integrity 2.5 x 26 mm stent to the OM with Dr. Rhoades. Unsuccessful PCI to the RCA COCOA BEAN CLEANER. Pt referred to Dr. Warner for possible COCOA BEAN CLEANER procedure. 08/06/16 - Nuclear stress test ([facility]): No ischemia or arrhythmia on EKG. Diaphragmatic attenuation with reversible ischemia involving the mid to apical inferior wall and inferolateral wall. Normal left ventricular size with mild hypokinesis at the lateral wall. EF 50%. Previous history of Promus stent placement to - date unknown. NSTEMI (non-ST elevated myocardial infarction) ([facility]) 08/07/2017 Overview: 07/12/17 at [place], [place]. Tobacco abuse 08/07/2017 Ischemic cardiomyopathy 08/07/2017 Overview: 07/12/17 - Echo ([facility]): EF 30-35%. Left ventricular cavity size increased. Wall thickness normal. Regional wall motion abnormalities. Akinesis of the inferior myocardium. Akinesis of the lateral myocardium. 07/12/17 - NSTEMI - EF 20%, severe left ventricular systolic function (per cath report). Life Vest applied for primary prevention of sudden cardiac . Mild mitral regurgitation 08/07/2017 Mild tricuspid regurgitation 08/07/2017 Protein S deficiency ([facility]) 08/07/2017 Overview: On warfarin. Encounters Date Type Specialty Care Team Description 09/02/2017 Telephone Cardiology Alee Awad RN Records Request ( cath report faxed to Dr. Duran's office) 08/12/2017 Hospital Cardiology Seth Warner MD Coronary artery disease - Encounter involving o[place] sioux coronary 08/13/2017 artery of o[place] sioux heart with angina pectoris (HCC) 08/12/2017 Hospital Lab Luiz Luna JAMILA Smith Atherosclerotic heart Encounter disease of [place] si[place] coronary artery with unspecified angina pectoris (HCC) 08/12/2017 Hospital Cardiology Seth Warner MD Encounter 08/12/2017 Office Visit Cardiology Seth Warner MD Cardiac Eval 08/12/2017 Orders Only Cardiology Alee Awad RN Chronic anticoagulation (Primary Dx) 08/12/2017 Procedure Pass Cardiology 08/12/2017 Surgery Cardiology Steh Warner MD Percutaneous Coronary Intervention of Chronic Total Occlusion Right Coronary Artery (Retrograde Approach) 08/09/2017 Documentation Cardiology Alee Awad RN Labs Only (CBC/ BMP (creat clearance 149.06) ) 08/08/2017 Documentation Cardiology Favian Smith RN Precertification (Approval for LVCORS through [employer] of [place]) 08/07/2017 Telephone Cardiology Alee Awad RN Appointment (cath & OV same day) 08/07/2017 Patient Profile Cardiology Alee Awad RN New Patient ( patient profile) 07/24/2017 Telephone Cardiology Alee Awad RN Referral (COCOA BEAN CLEANER - Dr. Warner) from Last 3 Months Social History Tobacco Use Types Packs/Day Years Used Date Current Every Day Smoker Alcohol Use Drinks/Week oz/Week Comments No Sex Assigned at Date Recorded Not on file Last Filed Vital Signs Vital Sign Reading Time Taken Blood Pressure 99/58 08/13/2017 7:35 AM LINOTYPE MACHINIST APPRENTICE Pulse 76 08/13/2017 7:35 AM LINOTYPE MACHINIST APPRENTICE Temperature 37.1 C (98.7 F) 08/13/2017 6:15 AM LINOTYPE MACHINIST APPRENTICE Respiratory Rate - - Oxygen Saturation 97% 08/13/2017 7:35 AM LINOTYPE MACHINIST APPRENTICE Inhaled Oxygen - - Concentration Weight 87.5 kg (192 lb 14.4 oz) 08/12/2017 8:13 AM LINOTYPE MACHINIST APPRENTICE Height 162.6 cm (5' 4.02") 08/12/2017 8:13 AM LINOTYPE MACHINIST APPRENTICE Body Mass Index 33.1 08/12/2017 8:13 AM LINOTYPE MACHINIST APPRENTICE Plan of Treatment Health Maintenance Due Date Last Done Comments PHYSICAL (COMPREHENSIVE) 1979 EXAM PERTUSSIS VACCINE 1983 TETANUS VACCINE 1989 INFLUENZA VACCINE 03/26/2017 Procedures Procedure Name Priority Date/Time Associated Diagnosis Comments TELEMETRY STRIPS-SCAN 08/21/2017 Results for this 2:42 PM LINOTYPE MACHINIST APPRENTICE procedure are in the results section. PROCEDURE RECORD-SCAN 08/21/2017 Results for this 1:47 PM LINOTYPE MACHINIST APPRENTICE procedure are in the results section. ECG-SCAN 08/21/2017 Results for this 10:46 AM LINOTYPE MACHINIST APPRENTICE procedure are in the results section. ECG-SCAN 08/13/2017 Results for this 7:30 AM LINOTYPE MACHINIST APPRENTICE procedure are in the results section. ECG-SCAN 08/12/2017 Results for this 9:40 PM LINOTYPE MACHINIST APPRENTICE procedure are in the results section. from Last 3 Months Results * TELEMETRY STRIPS-SCAN (08/21/2017 2:42 PM) Narrative Ordered by an unspecified provider. * PROCEDURE RECORD-SCAN (08/21/2017 1:47 PM) Narrative Ordered by an unspecified provider. * ECG-SCAN (08/21/2017 10:46 AM) Narrative Ordered by an unspecified provider. * CARDIAC CATH REPORT (08/14/2017 10:36 AM) Specimen Performing Laboratory OTHER OUTSIDE LAB Procedure Note Boo Pretty MD - 08/12/2017 3:12 PM LINOTYPE MACHINIST APPRENTICE [facility] CARDIAC CATHETERIZATION REPORT Page 3 HOANG Piedra : 1970 #: [id number] MR #/Billing ID #: [id number] / [id number] DATE: 08/12/2017 TOOL CRIB CLERK: Seth Warner MD DICTATING PROVIDER: Boo Pretty MD REFERRING PHYSICIAN: MARTHA LARSON INTERVENTIONAL CUSTOMER SERVICE RECEPTIONIST: Boo Pretty MD. PROCEDURES PERFORMED: 1. Selective right and left coronary angiograms with dual arterial injections. 2. Bilateral groin accesses, both 7-German common femoral arterial. 3. Dual coronary injections. 4. Chronic Total Occlusion (COCOA BEAN CLEANER) PCI of the proximal right RCA extending into the right PLV with 3 drug-eluting stents in overlapping fashion with antegrade wire escalation technique. 5. Right common femoral angiogram, limited. INDICATION FOR THE PROCEDURE: Hoang Linda is a pleasant, 47-year-old gentleman with a history of recent [id number] NM, status post PCI to his left circumflex extending into his obtuse marginal with a Resolute Integrity stent from an outside institution. There was an attempted antegrade PCI on his RCA COCOA BEAN CLEANER, which was unsuccessful. We would like to perform an invasive evaluation of his coronary anatomy with an intent to revascularize with the retrograde approach, given the fact that the antegrade cap was very ambiguous, based on outside hospital films. CONSENT: Risks, benefits, and alternatives of the procedure were explained to the patient by both Dr. Warner and myself. Risks of access site complications, bleeding, arterial dissection, , contrast nephropathy, and radiation hazards were explained to the patient, who verbalized understanding of these conditions and consented to the procedure. A written, informed consent has been placed in the chart as well. DETAILS OF THE PROCEDURE: The patient was brought in the irrigation laborer in the fasting, nonsedated state. After giving the patient a total of 225 mcg of fentanyl and 5 mg of Versed, we achieved moderate conscious sedation, which was monitored and maintained throughout the procedure for a total of 126 minutes. Respiratory, hemodynamic, and neurological parameters were monitored throughout the procedure by the operators and by the irrigation laborer staff. The patient was prepped and draped in sterile fashion. We exposed bilateral groins and prepped with 1% chlorhexidine and instilled a total of 20 mL of 1% lidocaine for good local anesthesia in both groins. We then gained access into the right common femoral artery using a micropuncture needle and modified Seldinger technique to insert a 7-German 10 cm arterial sheath with good blood flow return. Similar technique was adopted to gain access to the left common femoral artery with the same 7-German 10 cm arterial sheath. We went in with the intent to perform a retrograde COCOA BEAN CLEANER PCI, and hence, we obtained dual coronary injections. CORONARY ANGIOGRAM: 1. The left main arises normally from the left coronary cusp and is free from angiographic evidence of disease. It bifurcates into a left anterior descending artery, as well as a left circumflex artery. 2. The left anterior descending artery arises normally from the left main. Its proximal, mid, and distal portions are free from disease, except for 30% stenosis in the mid segment. The left main is also free from disease. It gives rise to 1 diagonal branch, the LAD, and it is also free from disease. 3. The left circumflex artery arises normally from the left main. Its proximal , mid, and distal portions are free from disease. It has a previously placed stent extending from the proximal circumflex, extending into the OM, is widely patent without any thrombosis or in-stent restenosis. 4. The right coronary artery arises normally from the right coronary cusp, and its proximal portion has 40% to 50% diffuse disease, followed by a long chronic total occlusion segment extending from the mid RCA to the PLV. There was collateral flow from the LAD to the RPLV territory, and also from the circumflex artery as well. We noted that on outside hospital films there was an abrupt cutoff of the proximal RCA with a very ambiguous cap; however, on our films, we noted an extra RV marginal branch which was filling in, though we could not localize the true nature of the proximal cap. Hence, we decided to adopt a retrograde approach initially. DETAILS OF THE PERCUTANEOUS CORONARY INTERVENTION to the RCA (Full metal Jacket ) (CHRONIC TOTAL OCCLUSION): 1. We used an EBU 3.75, 7-German guide catheter to engage the left main, while we used an AL1, 7-German guide catheter to engage the RCA for dual arterial injections. 2. We then introduced an 0.014 x 300 cm Fielder FC wire with a 150 cm Corsair microcatheter and tried to get across a couple of septals. We were able to track through the septals pretty well; however, the anatomy for reentry into the PLV/PDA was not favorable. After multiple attempts through different septals, we were not able to gain access into the right PLV or PDA segments, even despite tracking through the septals pretty well through both the Fielder FC, as well as the Corsair; hence, we switched to an antegrade approach. 3. We then switched the AL1, 7-German guide for a Hockey-Stick 1, 6-German guide, given the fact that an AL1 was a little too big to engage the RCA, given the size of the aortic root. The Hockey-Stick 1 gave us moderate seating and support throughout the entire procedure. We then introduced an 0.014 x 300 cm Fielder FC wire over a 150 cm Corsair into the right coronary artery to switch to an antegrade wire escalation approach. We were able to make very little progress across the proximal cap, which was very ambiguous with a Fielder FC wire. We then switched for an 0.009 tapering into an 0.014 x 300 cm Fielder XT wire and tried to make some progress across the mid RCA, and we tracked the Corsair across it. Though we were able to get into the distal RCA, we were unsure whether we were in the true lumen or not. We then switched out for a Cognos Bi Developer 200, 0.014 x 300 cm wire and got across the mid to distal RCA with moderate amount of difficulty. We were unsure again whether we were at the true lumen or not. Hence, we took a dual injection on the LAD, which demonstrated that our wire was indeed in the right PLV. After this, we tracked the Corsair down into the right PLV and switched out the Cognos Bi Developer 200 wire for an 0.014 x 300 cm Luge wire. We then tracked the Corsair out and introduced a 2.0 x 30 mm Emerge RX balloon and performed balloon angioplasty for a total of 6 different inflations, starting from the right PLV, extending into the proximal or ostial segment of the RCA, all of which were 8 atmospheres, lasting 20-30 seconds. We got moderate amount of expansion with this. We were then easily able to deliver a 2.25 x 38 mm Synergy drug-eluting stent extending into the distal RPLV and the proximal edge of the stent into the distal portion of the right coronary artery. The stent was deployed at 8 atmospheres for a total of 26 seconds. We then overlapped this proximally with a 2.25 x 38 mm Syndergy KENNEDY (10 thomas for 8 seconds). We then deployed a 2.5 x 32 mm Synergy KENNEDY at 10 atmospheres, lasting 25 seconds in overlapping fashion in the ostium to the midportion of the RCA. We got excellent angiographic results. After this, we noticed that the distal edge of the distal stent in the right PLV was oversized , compared to the rest of the RCA. This could have been an element of spasm. Hence, we gave the patient a total of 200 mcg of Cardene and 300 mcg of nitroglycerin. Even after vasodilatation, we noticed that the distal edge was a little pinched. Hence, we decided to dilate this using a 2.0 x 15 mm MINI TREK RX balloon for 10 atmospheres for 24 seconds. Excellent angiographic results were achieved at the distal edge of the stent with caodaism of RUSLAN- 3 flow to the PLV. We then removed the stent and postdilated both the stents using a 2.75 x 20 mm TREK NC balloon for a total of 6 different inflations, lasting 16 atmospheres for at least 16 seconds. Excellent stent expansion and apposition were achieved. There was no evidence of edge dissection or distal embolization. RUSLAN-3 flow was restored to the PDA and the PLV territories. Excellent flow was noted across the stent. Good stent expansion and apposition were achieved. Wire-out frames confirmed the above findings as well. The patient tolerated the procedure very well without any evidence of hemodynamic complications, and was transferred out of the irrigation laborer in stable condition without any chest pain. Dr. Warner, my attending, was scrubbed and performed mccloud portions of the procedure and supervised the rest of it as well. TOTAL CONTRAST USED: 340 mL. TOTAL AIR KERMA: 3528 mGy. Right common femoral angiogram demonstrated a high bifurcation of the right side , and hence, we opted for manual compression method. LESION CHARACTERISTICS: 1. RCA COCOA BEAN CLEANER ACC/AHA type C lesion. 2. RUSLAN 0 flow was noted preprocedure, and RUSLAN-3 flow was restored after the procedure. IMPRESSION: 1. Successful chronic total occlusion and revascularization of the proximal RCA with antegrade wire escalation technique, extending into the right PLV with 3 Renato (all Synergy - distal 2.25 x 38 mm, mid 2.25 x 38 mm and proximal 2.5 x 32 mm) in overlapping fashion with excellent angiographic results. 2. Aspirin, Plavix, and Coumadin therapy, given the fact that the patient had a recent pulmonary embolism and needs Coumadin therapy. Once the INR reaches therapeutic level, we recommend continuing Plavix and Coumadin x 12 months. Seth Warner MD PCG/MedQ /[id number] cc: - MARTHA LARSON * ECG-SCAN (08/13/2017 7:30 AM) Narrative Ordered by an unspecified provider. * PROTIME INR (PT) (08/13/2017 3:45 AM) Only the most recent of 2 results within the time period is included. Component Value Ref Range INR 1.1 0.8 - 1.2 Specimen Performing Laboratory Blood MAIN LAB [address] [place] [address] * CBC (08/13/2017 3:45 AM) Only the most recent of 2 results within the time period is included. Component Value Ref Range White Blood Cells 9.6 4.5 - 11.0 K/UL RBC 4.23 (L) 4.4 - 5.5 M/UL Hemoglobin 12.3 (L) 13.5 - 16.5 GM/DL Hematocrit 36.3 (L) 40 - 50 % MCV 85.8 80 - 100 FL MCH 29.1 26 - 34 PG MCHC 34.0 32.0 - 36.0 G/DL RDW 13.9 11 - 15 % Platelet Count 279 150 - 400 K/UL MPV 7.5 7 - 11 FL Specimen Performing Laboratory Blood MAIN LAB [address] [place] [address] * BASIC METABOLIC PANEL (08/13/2017 3:45 AM) Only the most recent of 2 results within the time period is included. Component Value Ref Range Sodium 138 137 - 147 MMOL/L Potassium 3.9 3.5 - 5.1 MMOL/L Chloride 105 98 - 110 MMOL/L CO2 25 21 - 30 MMOL/L Anion Gap 8 3 - 12 Glucose 107 (H) 70 - 100 MG/DL Blood Urea Nitrogen 12 7 - 25 MG/DL Creatinine 0.72 0.4 - 1.24 MG/DL Calcium 9.2 8.5 - 10.6 MG/DL eGFR Non >60 >60 mL/min Comment: The eGFR is not validated for use in drug dosing adjustments. Continue to use estimated creatinine clearance per dosing reference text. Please contact the Clinical Pharmacist for questions. eGFR >60 >60 mL/min Comment: The eGFR is not validated for use in drug dosing adjustments. Continue to use estimated creatinine clearance per dosing reference text. Please contact the Clinical Pharmacist for questions. Specimen Performing Laboratory Blood MAIN LAB [address] [place] [address] * ECG-SCAN (08/12/2017 9:40 PM) Narrative Ordered by an unspecified provider. * POC ACTIVATED CLOTTING TIME (08/12/2017 4:49 PM) Only the most recent of 8 results within the time period is included. Component Value Ref Range Activated Clotting Time 162 s Specimen Performing Laboratory MAIN LAB [address] [place] [address] from Last 3 Months
--- OUTSIDE RECORDS SUMMARY | 2017-09-15 11:46 | XMS REPORT | Encounter Summary ---
Author Author [facility] Organization [facility] Address Unknown Phone Unavailable Care Team Providers Care Assistant Media Buyer Name Role Phone PCP Unavailable Reason for Visit * Reason Comments Records Request cath report faxed to Dr. Duran's office Encounter Details Date Type Department Care Team Description 09/02/2017 Telephone [facility] Cardiology Alee Awad RN Records Request (cath [address] [facility] report faxed to Dr. Hope [id number] [place]) [place] [address] Social History Tobacco Use Types Packs/Day Years Used Date Current Every Day Smoker Alcohol Use Drinks/Week oz/Week Comments No Sex Assigned at Date Recorded Not on file as of this encounter Miscellaneous Notes * Telephone Encounter - Alee Awad RN - 09/02/2017 5:16 PM HOSE TURNER Voicemail received from Malgorzata with Dr. Duran's office in [place]. She is requesting pt's cath report. Faxed to Dr. Duran as requested. in this encounter Plan of Treatment Not on fileas of this encounter Visit Diagnoses Not on filein this encounter
--- OUTSIDE RECORDS SUMMARY | 2017-09-15 11:46 | XMS REPORT | Continuity of Care Document ---
Author Author [facility] Organization [facility] Address Unknown Phone Unavailable Care Team Providers Care Straw Boss Name Role Phone [employer] Unavailable Unavailable Problems Medications Allergies, Adverse Reactions, Alerts Immunizations Results Vital Signs Encounters Location Location Details Encounter Type Encounter Number Reason For Visit Attending Provider ADM Date DC Date Status Source SPECIMEN [id number] 08/12/2017 08/12/2017 Active [facility] SPECIMEN [id number] 08/12/2017 08/12/2017 Active [facility] O Active [facility] Procedures Plan of Care Social History Assessment and Plan Family History Advance Directives Functional Status
--- OUTSIDE RECORDS SUMMARY | 2017-09-15 11:47 | XMS REPORT | Encounter Summary ---
Author Author [facility] Organization [facility] Address Unknown Phone Unavailable Care Team Providers Care Large Animal Husbandry Technician Name Role Phone PCP Unavailable Reason for Visit * Reason Comments Cardiac Eval * Auth/Cert (Routine) Status Reason Specialty Diagnoses / Referred By Referred To Procedures Contact Contact Encounter Details Date Type Department Care Team Description 08/12/2017 Office Visit [facility] Seth Warner MD Cardiac Eval [address] [place] [address] [place] [address] [place] [address] [phone] Social History Tobacco Use Types Packs/Day Years Used Date Current Every Day Smoker Alcohol Use Drinks/Week oz/Week Comments No Sex Assigned at Date Recorded Not on file as of this encounter Last Filed Vital Signs Vital Sign Reading Time Taken Blood Pressure 116/68 08/12/2017 7:18 AM RUSTIC TERRAZZ[employer] SETTER Pulse 79 08/12/2017 7:18 AM RUSTIC TERRAZZ[employer] SETTER Temperature - - Respiratory Rate - - Oxygen Saturation - - Inhaled Oxygen - - Concentration Weight 87.1 kg (192 lb) 08/12/2017 7:18 AM RUSTIC TERRAZZO SETTER Height 162.6 cm (5' 4") 08/12/2017 7:18 AM RUSTIC TERRAZZ[employer] SETTER Body Mass Index 32.96 08/12/2017 7:18 AM RUSTIC TERRAZZO SETTER in this encounter Progress Notes * Seth Warner MD - 08/12/2017 7:15 AM RUSTIC TERRAZZO SETTER Formatting of this note may be different from the original. Date of Service: 08/12/2017 Robinson Linda is a 47 y.o. male. HPI Mr. Linda is a 47-year-old male with a history of coronary artery disease who had a non-ST elevation myocardial infarction back in June at that time he successfully underwent stenting with a drug-eluting stent to the obtuse marginal. They utilized a 2.5 x 26 mm resolute integrity stent. In addition, he has a chronic total occlusion of the right coronary artery which is occluded proximally. He has good clho-pr-jmmae collateralization to the posterior descending and posterior lateral branches. Of concern, his ejection fraction is severely impaired estimated at around 30% and he currently has a LifeVest. He has a previous myocardial perfusion study suggesting viability in the inferior wall and given his age and LV impairment, it was discussed and elected to go ahead and proceed with percutaneous revascularization to give him every opportunity to recover. Currently, he has been noting intermittent chest discomfort which occurs with activity and at rest. He is on aspirin, Plavix and warfarin and is tolerated this without any active bleeding issues. He is taking warfarin due to a history of a pulmonary embolus per his report with the addition of aspirin and Plavix given his recent coronary event. Vitals: 08/12/17 0718 BP: 116/68 Pulse: 79 Weight: 87.1 kg (192 lb) Height: 1.626 m (5' 4") Body mass index is 32.96 kg/(m^2). Past Medical History Patient Active Problem List Diagnosis Date Noted Coronary artery disease involving [place] coronary artery of sleetmute heart with angina pectoris ([facility]) 08/07/2017 07/12/17 - NSTEMI at [place], [place]. Successful PCI with a Resolute Integrity 2.5 x 26 mm stent to the OM with Dr. Rhoades. Unsuccessful PCI to the RCA CHIEF OF STAFF. Pt referred to Dr. Warner for possible CHIEF OF STAFF procedure. 08/06/16 - Nuclear stress test ([facility]): No ischemia or arrhythmia on EKG. Diaphragmatic attenuation with reversible ischemia involving the mid to apical inferior wall and inferolateral wall. Normal left ventricular size with mild hypokinesis at the lateral wall. EF 50%. Previous history of Promus stent placement to - date unknown. NSTEMI (non-ST elevated myocardial infarction) ([facility]) 08/07/2017 07/12/17 at [place], [place]. Tobacco abuse 08/07/2017 Ischemic cardiomyopathy 08/07/2017 07/12/17 - Echo ([facility]): EF 30-35%. Left ventricular cavity size increased. Wall thickness normal. Regional wall motion abnormalities. Akinesis of the inferior myocardium. Akinesis of the lateral myocardium. 07/12/17 - NSTEMI - EF 20%, severe left ventricular systolic function (per cath report). Life Vest applied for primary prevention of sudden cardiac . Mild mitral regurgitation 08/07/2017 Mild tricuspid regurgitation 08/07/2017 Protein S deficiency (HCC) 08/07/2017 On warfarin. Review of Systems Constitution: Negative. HENT: Negative. Eyes: Negative. Cardiovascular: Positive for chest pain. Respiratory: Negative. Endocrine: Negative. Hematologic/Lymphatic: Negative. Skin: Negative. Musculoskeletal: Negative. Gastrointestinal: Negative. Genitourinary: Negative. Neurological: Negative. Psychiatric/Behavioral: Negative. Allergic/Immunologic: Negative. Physical Exam Physical Exam General Appearance: alert and oriented, no acute distress Skin: warm, moist, no ulcers Head: normocephalic, symmetric Eyes: EOMI, PERRL, sclera are clear and without icterus ENT: unremarkable, nares patent Neck Veins: neck veins are flat, neck veins are not distended Carotid Arteries: normal carotid upstroke bilaterally, no bruits Chest Inspection: chest is normal in appearance Auscultation/Percussion: lungs clear to auscultation, no rales, rhonchi, wheezes or friction rub appreciated Cardiac Rhythm: regular rhythm and normal rate Cardiac Auscultation: Normal S1 & S2, no S3 or S4, no rub - normal pmi Murmurs: no cardiac murmurs Extremities: no lower extremity edema bilaterally; 2+ symmetric distal pulses Muskuloskeletal: no obvious deformity Abdominal Exam: soft, non-tender, no masses, bowel sounds normal Neurologic Exam: neurological assessment grossly intact Mood and Affect: Appropriate Cardiovascular Studies ECG - NSR, PVC - no Q waves Problems Addressed Today Encounter Diagnoses Name Primary? Coronary artery disease involving [place]etm[place] coronary artery of sleetmute heart with angina pectoris (HCC) Yes Ischemic cardiomyopathy Mild mitral regurgitation Assessment and Plan 1. Chronic total occlusion of the proximal right coronary artery with prominent left to right collateralization to the posterior descending and posterior lateral branches -he is referred for complex percutaneous intervention. I discussed the risks and benefits and will plan to go ahead and proceed. We will obtain bilateral groin access and will likely require a retrograde approach given the anatomy noted on his angiograms. We will plan to obtain an INR this morning to ensure that his INR is less than 1.9. We will plan to keep you informed this results of his upcoming procedure. Thank you for allowing us to participate in his care. Current Medications (including today's revisions) aspirin EC 81 mg tablet Take 81 mg by mouth daily. Take with food. atorvastatin (LIPITOR) 40 mg tablet Take 40 mg by mouth daily. carisoprodol(+) (SOMA) 350 mg tablet Take 350 mg by mouth at bedtime daily. clopiDOGrel (PLAVIX) 75 mg tablet Take 75 mg by mouth daily. gabapentin (NEURONTIN) 600 mg tablet Take 600 mg by mouth four times daily. gemfibrozil (LOPID) 600 mg tablet Take 600 mg by mouth twice daily. metoprolol XL (TOPROL XL) 25 mg extended release tablet Take 25 mg by mouth daily. nitroglycerin (NITROSTAT) 0.[address] 0.4 mg under tongue every 5 minutes as needed for Chest Pain. Max of 3 tablets, call 911. [place]-3 Acid Ethyl Esters 1 gram cap Take 1 g by mouth three times daily. omeprazole DR(+) (PRILOSEC) 20 mg capsule Take 20 mg by mouth daily before breakfast. tiZANidine (ZANAFLEX) 4 mg tablet Take 8 mg by mouth every 8 hours as needed. Indications: MUSCLE SPASM warfarin (COUMADIN) 5 mg tablet Take 5 mg by mouth as directed. Take 7.5 mg by mouth on Sat and Sat. Take 5 mg by mouth on Saturday, , , Sat, and Sat. Take at bedtime. Indications: THROMBOTIC DISORDER in this encounter Miscellaneous Notes * Addendum Note - Yazmin Starks - 08/12/2017 11:56 AM RUSTIC TERRAZZO SETTER Addended by: YAZMIN STARKS on: 08/12/2017 11:56 AM Modules accepted: Orders in this encounter Plan of Treatment Name Priority Associated Diagnoses Order Schedule ECG 12-LEAD Routine Coronary artery disease Ordered: 08/12/2017 involving sleetmute coronary artery of sleetmute heart with angina pectoris (HCC) Ischemic cardiomyopathy as of this encounter Visit Diagnoses Diagnosis Coronary artery disease involving sleetm[place] coronary artery of sleetmute heart with angina pectoris (HCC) - Primary Ischemic cardiomyopathy Other specified forms of chronic ischemic heart disease Mild mitral regurgitation Mitral valve disorders in this encounter
--- OUTSIDE RECORDS SUMMARY | 2017-09-15 11:47 | XMS REPORT | Encounter Summary ---
Author Author [facility] Organization [facility] Address Unknown Phone Unavailable Care Team Providers Care Manager Commercial Sales Name Role Phone PCP Unavailable Encounter Details Date Type Department Care Team Description 08/12/2017 Procedure Pass [facility]atheterization [facility] [address] [place] [address] Social History Tobacco Use Types Packs/Day Years Used Date Current Every Day Smoker Alcohol Use Drinks/Week oz/Week Comments No Sex Assigned at Date Recorded Not on file as of this encounter Plan of Treatment Not on fileas of this encounter Visit Diagnoses Not on filein this encounter
--- OUTSIDE RECORDS SUMMARY | 2017-09-15 11:47 | XMS REPORT | Encounter Summary ---
Author Author [facility] Organization [facility] Address Unknown Phone Unavailable Care Team Providers Care [employer] Of [employer] Name Role Phone PCP Unavailable Reason for Visit * Auth/Cert (Routine) Status Reason Specialty Diagnoses / Referred By Referred To Procedures Contact Contact Encounter Details Date Type Department Care Team Description 08/12/2017 [facility] Luna Dee APRN Atherosclerotic heart Encounter [address] [place] [address] [address] [place] [address] unspecified angina [phone] pectoris (HCC) Social History Tobacco Use Types Packs/Day Years Used Date Current Every Day Smoker Alcohol Use Drinks/Week oz/Week Comments No Sex Assigned at Date Recorded Not on file as of this encounter Medications at Time of Discharge Medication Sig. Disp. Refills Start Date End Date atorvastatin (LIPITOR) 40 Take 40 mg by mouth mg tablet daily. carisoprodol(+) (SOMA) Take 350 mg by mouth at 350 mg tablet bedtime daily. clopiDOGrel (PLAVIX) 75 Take 75 mg by mouth mg tablet daily. gabapentin (NEURONTIN) Take 600 mg by mouth four 600 mg tablet times daily. gemfibrozil (LOPID) 600 Take 600 mg by mouth mg tablet twice daily. HYDROcodone/acetaminophen Take 1 tablet by mouth (NORCO) 7.5/325 mg tablet every 6 hours as needed for Pain metoprolol XL (TOPROL XL) Take 25 mg by mouth 25 mg extended release daily. tablet nitroglycerin (NITROSTAT) Place 0.4 mg under tongue 0.4 mg tablet every 5 minutes as needed for Chest Pain. Max of 3 tablets, call 911. [place]-3 Acid Ethyl Esters Take 1 g by mouth three 1 gram cap times daily. omeprazole DR(+) Take 20 mg by mouth daily (PRILOSEC) 20 mg capsule before breakfast. sacubitril/valsartan Take 1 tablet by mouth (ENTRESTO) 24/26 mg twice daily. tablet tiZANidine (ZANAFLEX) 4 Take 8 mg by mouth every mg tabletIndications: 8 hours as needed. MUSCLE SPASM Indications: MUSCLE SPASM warfarin (COUMADIN) 5 mg Take 5 mg by mouth as tabletIndications: directed. Take 7.5 mg by THROMBOTIC DISORDER mouth on Sat and Sat. Take 5 mg by mouth on Saturday, , , Sat, and Sat. Take at bedtime. Indications: THROMBOTIC DISORDER aspirin EC 81 mg Take 1 tablet by mouth 90 tablet 3 08/13/201708/20 tabletIndications: daily for 7 days. Take Coronary artery disease with food. involving [place]azl[place] coronary artery of [place] heart with angina pectoris (HCC), Ischemic cardiomyopathy, NSTEMI (non-ST elevated myocardial infarction) (HCC), Tobacco abuse aspirin EC 81 mg tablet Take 81 mg by mouth 08/13/2017 daily. Take with food. as of this encounter Plan of Treatment Not on fileas of this encounter Results * PROTIME INR (PT) (08/12/2017 7:43 AM) Component Value Ref Range INR 1.0 0.8 - 1.2 Specimen Performing Laboratory [facility] [address] [place] [address] in this encounter Visit Diagnoses Not on filein this encounter Admitting Diagnoses Diagnosis Atherosclerotic heart disease of [place] coronary artery with unspecified angina pectoris (HCC) Atherosclerotic heart disease of [place] coronary artery with unspecified angina pectoris in this encounter
--- OUTSIDE RECORDS SUMMARY | 2017-09-15 11:47 | XMS REPORT | Encounter Summary ---
Author Author [facility] Organization [facility] Address Unknown Phone Unavailable Care Team Providers Care Sharepoint Manager Name Role Phone PCP Unavailable Reason for Visit * Auth/Cert (Routine) Status Reason Specialty Diagnoses / Referred By Referred To Procedures Contact Contact Encounter Details Date Type Department Care Team Description 08/12/2017 [facility]iology Seth Warner MD Encounter [address] [facility] [address] [address] [place], [place] [id number] Social History Tobacco Use Types Packs/Day Years [...] Pain. Max of 3 tablets, call 911. [place]-3 Acid Ethyl Esters Take 1 g by [...] Take Coronary artery disease with food. involving [place] coronary artery of [place] heart with angina pectoris (HCC), Ischemic cardiomyopathy, NSTEMI (non-ST elevated myocardial infarction) (HCC), Tobacco abuse aspirin EC 81 mg tablet Take 81 mg by mouth 08/13/2017 daily. Take with food. as of this encounter Plan of Treatment Not on fileas of this encounter Visit Diagnoses Not on filein this encounter
--- OUTSIDE RECORDS SUMMARY | 2017-09-15 11:47 | XMS REPORT | Encounter Summary ---
Author Author [facility] Organization [facility] Address Unknown Phone Unavailable Care Team Providers Care Picture Frames Inspector Name Role Phone PCP Unavailable Reason for Visit * Auth/Cert (Routine) Status Reason Specialty Diagnoses / Referred By Referred To Procedures Contact Contact Encounter Details Date Type Department Care Team Description 08/12/2017 Hospital Cardiac Catheterization Fredrick Warner MD Coronary artery disease - Encounter Laboratory [address] involving craig coronary 08/13/[address] [place] [address] [place] [address] [place] [address] with angina pectoris [phone] ([facility]) Social History Tobacco Use Types Packs/Day Years Used Date Current Every Day Smoker Alcohol Use Drinks/Week oz/Week Comments No Sex Assigned at Date Recorded Not on file as of this encounter Last Filed Vital Signs Vital Sign Reading Time Taken Blood Pressure 99/58 08/13/2017 7:35 AM TECHNICAL MAINTENANCE SPECIALIST Pulse 76 08/13/2017 7:35 AM TECHNICAL MAINTENANCE SPECIALIST Temperature 37.1 C (98.7 F) 08/13/2017 6:15 AM TECHNICAL MAINTENANCE SPECIALIST Respiratory Rate - - Oxygen Saturation 97% 08/13/2017 7:35 AM TECHNICAL MAINTENANCE SPECIALIST Inhaled Oxygen - - Concentration Weight 87.5 kg (192 lb 14.4 oz) 08/12/2017 8:13 AM TECHNICAL MAINTENANCE SPECIALIST Height 162.6 cm (5' 4.02") 08/12/2017 8:13 AM TECHNICAL MAINTENANCE SPECIALIST Body Mass Index 33.1 08/12/2017 8:13 AM TECHNICAL MAINTENANCE SPECIALIST in this encounter Discharge Summaries * Karlie Victor PA-C - 08/13/2017 8:00 AM TECHNICAL MAINTENANCE SPECIALIST Formatting of this note may be different from the original. Physician Discharge Summary Name: Hoang Linda Date Of : 1970 Age: 47 years Admit date: 08/12/2017 Discharge date: 08/13/2017 Attending Physician: Dr. 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 Successful PCI with a Resolute Integrity 2.5 x 26 mm stent to the OM with Dr. Rhoades. Unsuccessful PCI to the RCA COCOA MILLING MACHINE OPERATOR. Pt referred to Dr. Warner for possible COCOA MILLING MACHINE OPERATOR procedure. 08/06/16 - Nuclear stress test ([facility]): No ischemia or arrhythmia on EKG. Diaphragmatic attenuation with reversible ischemia involving the mid to apic Ischemic cardiomyopathy Mild mitral regurgitation 08/07/2017 Mild tricuspid regurgitation 08/07/2017 NSTEMI (non-ST elevated myocardial infarction) ([facility]) 08/07/2017 Protein S deficiency ([facility]) 08/07/2017 Tobacco abuse 08/07/2017 Allergies: Pcn [penicillins] Physical Exam notable for: b/l Groin no hematoma, no bruit, soft, non-tender. CV: RRR Lungs: CTA B Ext: no edema, + 2 b/l pedal pulses. ABD: Soft, non tender, + BS X 4 quads. Lab/Radiology studies notable for: Hematology: Lab Results Component Value Date HGB 12.3 08/13/2017 HCT 36.3 08/13/2017 PLTCT 279 08/13/2017 WBC 9.6 08/13/2017 MCV 85.8 08/13/2017 MCHC 34.0 08/13/2017 MPV 7.5 08/13/2017 RDW 13.9 08/13/2017 , General Chemistry: Lab Results Component Value Date NA 138 08/13/2017 K 3.9 08/13/2017 CL 105 08/13/2017 GAP 8 08/13/2017 BUN 12 08/13/2017 CR 0.72 08/13/2017 GLU 107 08/13/2017 CA 9.2 08/13/2017 Brief Hospital Course: Mr. Linda is a 47 y.o male with a history of NSTMI in June. He underwent PCI of OM at [facility] in [place], [place]. He was also found to have COCOA MILLING MACHINE OPERATOR of RCA. PCI was attempted which was unsuccessful. He was referred to Dr. Warner for Stage PCI. Echo done at OSH on 07/12/17 revealed LVEF 30-35%. He was discharged home with LifeVest. He also has a history of mild MR and TR and protein S deficiency treated with warfarin. Patient was taken to the cardiac catheterization lab on 08/12/17 where successful revascularization of the proximal RCA was done, extending into the right PLV with 3 drug-eluting stents in overlapping fashion with excellent angiographic results. Patient tolerated the procedure well. He had vasovagal response to sheath pull with ~ 6 second pause. He required atropine and recovered promptly. No recurrent pause since then or overnight. Dr. Warner recommends to continue ASA 81 mg daily for one week. He was instructed on the importance of Plavix 75 mg daily at least 6 months to 1 year w/o interruption to prevent stent thrombosis and possible myocardial infarction. JUVENILE JUSTICE SPECIALIST warfarin was resumed 08/12/17. No bridging is recommended per staff to minimize bleeding complications. PT/INR on Saturday. PT/INR managed by Primary gelatin maker utility. PT/ INR goal 2.0-3.0. Lipid profile as above. Patient is currently tolerating Atorvastatin 40 mg po daily. Weight loss, Cardiac Healthy diet, and exercise when patient can tolerate. Patient to continue current medical therapy with aggressive risk factors modification. Patient to weigh daily and report any wt. Gain of 2-3 # in 1-3 days. BP usually marginal at home. He is asymptomatics. Maximize treatment for LVD with GDMT as pt. Can tolerate, renal function allows and BP permits. F/u w/ Primary gelatin maker utility as already scheduled or sooner if needed. He will continue to wear LifeVest. Currently his primary gelatin maker utility is planning to repeat Echo in August. EKG NSR 72 bpm, PVC's. Non specific ST-T changes unchanged from prior. 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 Selective right and left coronary angiograms with dual arterial injections. 2. Bilateral groin accesses, both 7-[place]ao [place]an common femoral arterial. 3. Dual coronary injections. 4. COCOA MILLING MACHINE OPERATOR PCI of the proximal right RCA extending into the right PLV with 3 drug- eluting stents in overlapping fashion with antegrade wire escalation technique. 5. Right common femoral angiogram, limited. Consults: None Patient Disposition: Home Patient instructions/medications: Procedure Specific Activity *You may drive after 2 days. *You may shower after discharge. *NO tub baths, hot tubs, or swimming for 5 days. *NO lifting greater than 15 pounds for 1 week. *NO sexual or strenuous activity for 1 week. Report These Signs and Symptoms Please contact your doctor if you have any of the following symptoms: Chest pain , shortness of breath, lightheadedness, dizziness, near fainting, palpitations, abd pain, back pain, or bleeding. *Continue medicines as direct on your discharge medication list. Get an up to date list with every visit and take as instructed. Do NOT stop taking any medications without speaking with your doctor or nurse who knows you. *Remember to weigh yourself first thing in the morning after using the restroom and write it down. Take this record to your doctor appointment. *Chart symptoms such as fatigue, trouble breathing, or swelling. Call your doctor right away if these symptoms get worse. *Remember, do not eat more than 2000 milligrams of sodium a day. Watch out for packaged, processed, canned and restaurant foods. Call your doctor (your gelatin maker utility, if you have one) if: -you gain more than 2 pounds in 24 hours. -you gain more than 5 pounds in 1 week. -any of your symptoms get worse Do NOT wait to let your doctor know about these changes. Questions About Your Stay For questions or concerns regarding your hospital stay: - DURING BUSINESS HOURS (8:00 AM - 4:30 PM): Call [phone] and asked to be transferred to your discharge attending physician. - AFTER BUSINESS HOURS (4:30 PM - 8:00 AM, on weekends, or holidays): Call [phone] and ask the lime kiln operator to page the on-call doctor for the discharge attending physician. Discharging attending physician: FREDRICK WARNER [[id number]] Cardiac Diet Limiting unhealthy fats and cholesterol is the most important step you can take in reducing your risk for cardiovascular disease. Unhealthy fats include saturated and trans fats. Monitor your sodium and cholesterol intake. Restrict your sodium to 2g (grams) or 2000mg (milligrams) daily, and your cholesterol to 200mg daily. If you have questions regarding your diet at home, you may contact a dietitian at . Incision Care *Call if there is an increase in pain, swelling, or redness. *DO NOT soak incision in water. *NO tub baths, hot tubs, or swimming. *You may shower after discharge. Return Appointment F/u with your primary gelatin maker utility as already scheduled with echo in August. [facility] Provider JEFFERY RHOADES [[id number]] Heart Failure Information You are at risk for readmission to the hospital because of fluid overload. There are steps you can take to lower your risk: *Continue your current heart medications. Changes made have been made during your hospital stay. *Remember to weigh yourself every morning, first thing after you urinate, and write down your weigh. Take this record to your doctor's appointments. *Chart your symptoms - fatigue, shortness of breath, swelling, etc. Immediately report any worsening. *Remember to consume no more than 2,000mg (milligrams) of sodium daily. Watch out for packaged, processed, canned, and restaurant foods especially. *If any of your symptoms worsen, or if you gain more than 2 pounds in 24 hours, or 5 pounds in a week, call your gelatin maker utility immediately. EARLY REPORTING OF THESE CHANGES IS VERY IMPORTANT. [facility] Information [facility] is a gathering place for individuals, families, and friends living with serious or chronic physical illness. They offer education and support programs that help you live your life to the fullest. Unless otherwise noted, programs are offered at NO CHARGE. However, REGISTRATION IS REQUIRED 48 hours in advance. To arrange for a tour, register for a class, or ask a questions please call . You can also visit [employer] for more information. [facility] Education about Stroke It is important for you to recognize the signs of stroke and call 911 immediately. F.A.S.T. is an easy way to remember the sudden signs of a stroke. F - face drooping A - arm weakness S - speech difficulty T - TIME TO CALL 911 If you or anyone you know shows any of these signs, even if the signs go away, call IMMEDIATELY. Check the time so you will know when the first sign started. Current Discharge Medication List CONTINUE these medications which have been CHANGED or REFILLED Details aspirin EC 81 mg tablet Take 1 tablet by mouth daily for 7 days. Take with food. 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 PRESCRIPTION TYPE: Historical Med carisoprodol(+) (SOMA) 350 mg tablet Take 350 mg by mouth at bedtime daily. PRESCRIPTION TYPE: Historical Med clopiDOGrel (PLAVIX) 75 mg tablet Take 75 mg by mouth daily. PRESCRIPTION TYPE: Historical Med gabapentin (NEURONTIN) 600 mg tablet Take 600 mg by mouth four times daily. PRESCRIPTION TYPE: Historical Med gemfibrozil (LOPID) 600 mg tablet Take 600 mg by mouth twice daily. PRESCRIPTION TYPE: Historical Med HYDROcodone/acetaminophen (NORCO) 7.5/325 mg tablet Take 1 tablet by mouth every 6 hours as needed for Pain PRESCRIPTION TYPE: Historical Med metoprolol XL (TOPROL XL) 25 mg extended release tablet Take 25 mg by mouth daily. PRESCRIPTION TYPE: Historical Med nitroglycerin (NITROSTAT) 0.[address] 0.4 mg under tongue every 5 minutes as needed for Chest Pain. Max of 3 tablets, call 911. PRESCRIPTION TYPE: Historical Med [place]-3 Acid Ethyl Esters 1 gram cap Take 1 g by mouth three times daily. PRESCRIPTION TYPE: Historical Med omeprazole DR(+) (PRILOSEC) 20 mg capsule Take 20 mg by mouth daily before breakfast. PRESCRIPTION TYPE: Historical Med sacubitril/valsartan (ENTRESTO) 24/26 mg tablet Take 1 tablet by mouth twice daily. PRESCRIPTION TYPE: Historical Med tiZANidine (ZANAFLEX) 4 mg tablet Take 8 mg by mouth every 8 hours as needed. Indications: MUSCLE SPASM PRESCRIPTION TYPE: Historical Med warfarin (COUMADIN) 5 mg tablet Take 5 mg by mouth as directed. Take 7.5 mg by mouth on Sat and Sat. Take 5 mg by mouth on Saturday, , , Sat, and Sat. Take at bedtime. Indications: THROMBOTIC DISORDER PRESCRIPTION TYPE: Historical Med Pending items needing follow up: as above Signed: Karlie Victor PA-C 08/13/2017 cc: Primary Care Physician: Martha Flowers Verified Referring physicians: Dr. Jeffery Rhoades/Dr. Jayro Duran ([place], [place]) Additional provider(s): in this encounter Discharge Instructions * Patient Instructions - Dayan Easley RN - 08/13/2017 8:32 AM TECHNICAL MAINTENANCE SPECIALIST Manual Sheath Removal From A Large Vein Or Artery-MIGUEL When you go home: You may shower 24 hours after your procedure. Do not sit in water for one week. (No bath tub, swimming pool/hot tub, etc.) Keep the area clean and dry for one week (except for daily showers). Be sure your hands are clean when touching near the site. If a band-aid or dressing is still in place remove it before showering. Wash and dry thoroughly but gently. If needed, for your comfort, you may place a clean band-aid over the puncture site after you are clean and dry. It is best to leave it open to air as soon as it is comfortable to do so. Do not use ointments, creams, or powders on puncture site. Inspect site daily. Activity: (Unless otherwise instructed or unable to perform) Avoid any exertion for one week. Exertion is lifting over 15 lbs or pushing, pulling or straining. Avoid excessive bending, stooping, or stair climbing for 2 days. It is ok to go up stairs or bend over but take it slowly and keep it to a minimum. You may be up and about while relaxing at home as you recover. You may resume sexual activity in one week. You may begin driving 2 days after your procedure if you are otherwise able to drive. ---It is common to have mild soreness and/or a small, soft bruise around the site that can take up to two weeks to go away. A small (dime to quarter sized) lump is also normal. A small amount of blood (not more than a teaspoon) from the site is also common. WHEN TO CALL THE DOCTOR: Complications are rare but can happen. If you have significant bleeding (more than a teaspoon) or a lump underneath the skin (bigger than a golf ball) at the site lie down, apply firm pressure at the site and call 911. Bleeding from a large vessel needs professional help. If you have signs of infection at the site such as: redness, warm to touch, drainage, increasing soreness, a fever (100 degrees or more) and/or chills. Soreness that continues more than a week or unusual pain at the puncture site. Numbness, tingling, weakness in the affected leg. If your leg becomes cold and pale. If you have changes of vision, slurred speech or one-sided weakness. Who do I contact if I need to speak with someone? During Business Hours: [facility] Office at the [facility]: (Saturday-Saturday) [place]: [phone] (Saturday-Saturday) [place]: [phone] (Saturday-Saturday) [place]: [phone] (Saturday and ) [place]: [phone] (Saturday-Saturday) [place]: [phone] (Saturday-Saturday) [place]: [phone] (Saturday-) [facility]: [phone] (Saturday, Saturday and Saturday) [place]: [phone] (Saturday, Saturday and Saturday) [facility]): [phone] (Saturday, Saturday and Saturday) Nights and Weekends [facility] Office at the [facility]: [phone] This education is meant to serve as a resource to you and your family. It is not meant to be all inclusive. The members of the [facility] at [facility], , will be glad to answer any questions you may have about this booklet or your procedure. in this encounter Medications at Time of Discharge [...] Pain. Max of 3 tablets, call 911. [place]-3 Acid Ethyl Esters Take 1 g by [...] Take Coronary artery disease with food. involving craig coronary artery of craig heart with angina pectoris (HCC), Ischemic cardiomyopathy, NSTEMI (non-ST elevated myocardial infarction) (HCC), Tobacco abuse as of this encounter Progress Notes * Wilfredo Gardner RN - 08/13/2017 8:52 AM TECHNICAL MAINTENANCE SPECIALIST Cardiac Rehab Call Back Note: Spoke with patient. He will start OPCR in [place] this Saturday. Are you tolerating activity?Yes Is pain controlled?Yes Is appetite normal?Yes Are you having symptoms of heart discomfort?No Are you having signs of infection at your incision sites or groin site?No Do you want outpt cardiac rehab?Yes * Cassidy Tracy RN - 08/13/2017 8:52 AM TECHNICAL MAINTENANCE SPECIALIST I have reviewed the notes, assessment, and/or procedures performed by Dayan Easley RN and concur with her/his documentation unless otherwise noted. * Dayan Easley RN - 08/13/2017 8:51 AM TECHNICAL MAINTENANCE SPECIALIST Patient discharged to home with all belongings. Discharge instructions, med reconciliation and home wound care instructions given and explained to patient and family both verbally and written. Accompanied by family. No complaints of pain or discomfort. Bilateral groins remains clean, dry, and intact with no evidence of a hematoma after ambulation. Patient escorted to lobby via Transport. Patient to follow up with [facility] ([facility]) or on-call physician with any additional questions or concerns. All contact numbers provided. Patient and family acceptant of DC instuctions and report understanding to all information. * Wilfredo Gardner RN - 08/13/2017 6:46 AM TECHNICAL MAINTENANCE SPECIALIST Formatting of this note may be different from the original. CARDIOPULMONARY REHABILITATION INPATIENT ASSESSMENT Cardiac Rehabilitation Staff: Elia Gardner RN Discharge Date: Demographics Pre-admit Dx: Date of Admission: 08/12/2017 Room: [address] : 1970 Insurance: Primary: /[facility] Secondary: . 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 Labs No results found for: CHOL, TRIG, HDL, LDL, HGBA1C, A1C, TNI Heart Resource Manual Given: 08/13/17 Teaching Completed: 08/13/17 Outpatient Cardiopulmonary Rehabilitation OPCR: Yes Referral Faxed to: [place], [place] Date Faxed: 08/13/17 (Currently enrolled. Update faxed to [facility]) Location: [place], [place] If [facility], Sent to Staff: Wilfredo Gardner RN 08/13/2017 * Wilfredo Gardner RN - 08/13/2017 6:44 AM TECHNICAL MAINTENANCE SPECIALIST Introduced self to patient and gave copy of the Heart Resource Manual pertaining to coronary interventions. He is currently enrolled in the program at [facility] in [place], [place] and will continue when cleared by gelatin maker utility. I have faxed an update to [facility]. * Dayan Easley, LILA - 08/12/2017 5:57 PM TECHNICAL MAINTENANCE SPECIALIST Formatting of this note may be different from the original. 08/12/17 1720 08/12/17 1723 08/12/17 1724 Vital Signs Pulse 67 (!) 30 (!) 0 PVC / Minute 0 /min. 0 /min. 0 /min. Respirations 10 PER MINUTE 13 PER MINUTE 15 PER MINUTE SpO2 Pulse 67 (!) 42 (!) 43 SpO2 96 % 96 % 98 % BP 98/56 (!) 69/32 -- Mean NBP (Calculated) 67 MM HG 38 MM HG -- 08/12/17 1725 08/12/17 1727 Vital Signs Pulse 52 59 PVC / Minute 1 /min. 0 /min. Respirations 14 PER MINUTE 13 PER MINUTE SpO2 Pulse (!) 52 60 SpO2 98 % 96 % BP (!) 82/36 (!) 83/50 Mean NBP (Calculated) 44 MM HG 58 MM HG During sheath pull patient vasovagaled. Dr. Haddad assessed patient. Orders given for 250 bolus of NS. 0.5 mg atropine given by Vira SHARP. Patient stabilized and vital signs returned to normal. Will continue to monitor and keep NS running at 75mL/hr per Dr. Haddad. * Boo Pretty MD - 08/12/2017 5:53 PM TECHNICAL MAINTENANCE SPECIALIST Mr. Linda was seen and examined in [facility] after the COCOA MILLING MACHINE OPERATOR PCI with a full metal jacket stenting to the RCA extending into the right PLV. During sheath pull, he was noted to have significant sinus pauses lasting 6 seconds. He recovered promptly. Hemodynamic stability is noted. There was a transient episode of hypotension with a mean arterial pressure of 60 mmHg. We are presently infusing normal saline at 75 cc/h for the next 6 hours to a total of approximately 500 cc. His blood pressure has already improved to a mean arterial pressure of 70 mmHg. He remains asymptomatic at this juncture. Bilateral sheaths 7 [place] have been removed with excellent hemostasis. This appears to be a significant vagal response associated with sheath pull. I do not suspect any bleeding at this point in time. Please call me if his clinical status changes. Boo Pretty M.D. Fellow in Interventional Cardiology Beeper # [id number] * Cassidy Tracy RN - 08/12/2017 4:45 PM TECHNICAL MAINTENANCE SPECIALIST I have reviewed the notes, assessment, and/or procedures performed by Dayan Easley RN and concur with her/his documentation unless otherwise noted. * Karlie Victor PA-C - 08/12/2017 3:04 PM TECHNICAL MAINTENANCE SPECIALIST S/p 3 KENNEDY to RCA. Recent NSTEMI in Nov s/p KENNEDY to OM. ASA 81 mg daily for 1 week. Plavix 75 mg daily for 1 year w/o interruption to prevent stent thrombosis and possible myocardial infarction. Resume warfarin tonight. No bridging is recommended per Dr. Warner. He recently filled all his medications and does not wish refills at this time. He will continue to wear his LifeVest till his follow up appointment. Drs. Rhoades and Roger are planning repeat Echo in August. DC home in am. F/u with Primary gelatin maker utility as already scheduled or sooner if needed. Maximize treatment for LVD with GDMT as pt. Can tolerate, renal function allows and BP permits. Karlie Victor PA-C (pgr [phone]) * Denisse Vidal RT - 08/12/2017 11:12 AM TECHNICAL MAINTENANCE SPECIALIST Formatting of this note may be different from the original. RESPIRATORY THERAPY ADULT PROTOCOL EVALUATION RESPIRATORY PROTOCOL PLAN Medications Note: If indicated by protocol, medication orders will be placed by therapist. Procedures IPPB: Place a nursing order for "IS Q1h While Awake" for any of Lung Expansion indicators Oxygen/Humidity: O2 to keep SpO2 > 95% Monitoring: Pulse oximetry BID & PRN PATIENT EVALUATION RESULTS Chart Review * Pulmonary Hx: Smoker in home OR smoking cessation > 8 weeks (former smoker) * Surgical Hx: General surgery (cough & sigh not affected) * Chest X-Ray: Clear OR not available * PFT/Oxygenation: FEV1, PEFR < 70% OR Pa02 < 70 RA OR Sp02 <92% RA OR Fi02 > 0.21 to keep Sp02 > 92% OR < 24 hours post-op (02 & oxim) OR chronic C02 retention (C02) (will be < 24 hours post op) Patient Assessment * Respiratory Pattern: Regular pattern and rate OR good chest excursion with deep breathing * Breath Sounds: Clear apically, but diminished in bases (LE) OR CHF related crackles (02) (oximetry) * Cough / Sputum: Strong, effective cough OR nonproductive * Mental Status: Alert, oriented, cooperative * Activity Level: Ambulatory with assistance Priority Index Total Points: 6 Points * Priority Index: 1 PRIORITY INDEX GUIDELINES* Priority Points 1 0-9 points 2 9-18 points 3 > 18 points + Pulm Dx or Home Rx *Higher points indicate higher acuity. Therapist: Denisse Vidal, RT Date: 08/12/2017 [place] AC=Airway clearance AM=Aerosolized medication BA=[place] aerosol DB&C=Deep breathe & cough FEV1=Forced expiratory volume in first second) IC=Inspiratory capacity LE=Lung expansion MDI=Metered dose inhaler Neb=Nebulizer O2=Oxygen Oxim=Oximetry PEFR=Peak expiratory flow rate SALES RESEARCH ANALYST=Rapid Response Team * Dayan Easley RN - 08/12/2017 8:01 AM TECHNICAL MAINTENANCE SPECIALIST Patient arrived on unit via ambulation accompanied by RN. Patient transferred to the bed without assistance. Assessment completed, refer to flowsheet for details. Orders released, reviewed, and implemented as appropriate. Oriented to surroundings, call light within reach. Plan of care reviewed. Will continue to monitor and assess. in this encounter H&P Notes * Karlie Victor PA-C - 08/12/2017 9:37 AM TECHNICAL MAINTENANCE SPECIALIST Formatting of this note may be different from the original. The original H and P below was performed by Dr. Warner. Karlie Victor PA-C ([phone]) Fredrick Warner MD Cardiology Hide copied text Hover for attribution information Date of Service: 08/12/2017 Hoang Linda is a 47 y.o. male. HPI [...] which is occluded proximally. 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 Successful PCI with a Resolute Integrity 2.5 x 26 mm stent to the OM with Dr. Rhoades. Unsuccessful PCI to the RCA COCOA MILLING MACHINE OPERATOR. Pt referred to Dr. Warner for possible COCOA MILLING MACHINE OPERATOR procedure. 08/06/16 - Nuclear stress test ([facility]): No ischemia or arrhythmia on EKG. Diaphragmatic attenuation with reversible ischemia involving the mid to apical inferior wall and inferolateral wall. Normal left ventricular size with mild hypokinesis at the lateral wall. EF 50%. Previous history of Promus stent placement to - date unknown. NSTEMI (non-ST elevated myocardial infarction) ([facility]) 08/07/2017 07/12/17 at [facility] in [place], [place]. Tobacco abuse 08/07/2017 Ischemic cardiomyopathy 08/07/2017 07/12/17 - Echo ([facility]): EF 30-35%. Left ventricular cavity size increased. Wall thickness normal. Regional wall motion abnormalities. Akinesis of the inferior myocardium. Akinesis of the lateral myocardium. 07/12/17 - NSTEMI - EF 20%, severe left ventricular systolic function (per cath report). Life Vest applied for primary prevention of sudden cardiac . Mild mitral regurgitation 08/07/2017 Mild tricuspid regurgitation 08/07/2017 Protein S deficiency ([facility]) 08/07/2017 On warfarin. Review of Systems Constitution: Negative. HENT: Negative. Eyes: Negative. Cardiovascular: Positive for chest pain. Respiratory: Negative. Endocrine: Negative. Hematologic/Lymphatic: Negative. Skin: Negative. Musculoskeletal: Negative. Gastrointestinal: Negative. Genitourinary: Negative. Neurological: Negative. Psychiatric/Behavioral: Negative. Allergic/Immunologic: Negative. Social History Social History Marital status: Spouse name: N/A Number of children: N/A Years of education: N/A Social History Main Topics Smoking status: Current Every Day Smoker Smokeless tobacco: None Alcohol use No Drug use: No Sexual activity: Not Asked Other Topics Concern None Social History Narrative History reviewed. No pertinent surgical history. Physical Exam Physical Exam General Appearance: alert [...] Diagnoses Name Primary? 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 Max of 3 tablets, call 911. [place]-3 Acid Ethyl Esters 1 gram cap Take [...] bedtime. Indications: THROMBOTIC DISORDER in this encounter Procedure Notes * Boo Pretty MD - 08/12/2017 3:12 PM TECHNICAL MAINTENANCE SPECIALIST Associated Order(s): CARDIAC CATH REPORT [facility] CARDIAC CATHETERIZATION REPORT Page 3 HOANG Piedra : 1970 KU#: [id number] CAMERON MR #/Billing ID #: [id number] / [id number] DATE: 08/12/2017 DIGITAL PHOTOGRAPHIC PRINTER: Fredrick Warner MD DICTATING PROVIDER: Boo Pretty MD REFERRING PHYSICIAN: MARTHA FLOWERS [facility] DIRECT[employer]CHOOL: Boo Pretty MD. PROCEDURES PERFORMED: 1. Selective right and left coronary angiograms with dual arterial injections. 2. Bilateral groin accesses, both 7-[place] common femoral arterial. 3. Dual coronary injections. 4. Chronic Total Occlusion (COCOA MILLING MACHINE OPERATOR) PCI of the proximal right RCA extending into the right PLV with 3 drug-eluting stents in overlapping fashion with antegrade wire escalation technique. 5. Right common femoral angiogram, limited. INDICATION FOR THE PROCEDURE: Hoang Linda is a pleasant, 47-year-old gentleman with a history of recent [id number] SC, status post PCI to his left circumflex extending into his obtuse marginal with a Resolute Integrity stent from an outside institution. There was an attempted antegrade PCI on his RCA COCOA MILLING MACHINE OPERATOR, which was unsuccessful. We would like to [...] PROCEDURE: The patient was brought in the cath lab manager in the fasting, nonsedated state. After giving the patient a total of 225 mcg of fentanyl and 5 mg of Versed, we achieved moderate conscious sedation, which was monitored and maintained throughout the procedure for a total of 126 minutes. Respiratory, hemodynamic, and neurological parameters were monitored throughout the procedure by the operators and by the cath lab manager staff. The patient was prepped and draped in sterile fashion. We exposed bilateral groins and prepped with 1% chlorhexidine and instilled a total of 20 mL of 1% lidocaine for good local anesthesia in both groins. We then gained access into the right common femoral artery using a micropuncture needle and modified Seldinger technique to insert a 7-[place] 10 cm arterial sheath with good blood flow return. Similar technique was adopted to gain access to the left common femoral artery with the same 7-[place] 10 cm arterial sheath. We went in with the intent to perform a retrograde COCOA MILLING MACHINE OPERATOR PCI, and hence, we obtained dual coronary [...] OCCLUSION): 1. We used an EBU 3.75, 7-[place] guide catheter to engage the left main, while we used an AL1, 7-[place] guide catheter to engage the RCA for [...] approach. 3. We then switched the AL1, 7-[place] guide for a Hockey-Stick 1, 6-[place] guide , given the fact that an AL1 was [...] not. We then switched out for a Quilting Supervisor 200, 0.014 x 300 cm wire and [...] the right PLV and switched out the Quilting Supervisor 200 wire for an 0.014 x 300 [...] the distal edge of the stent with amish of RUSLAN- 3 flow to the PLV. [...] complications, and was transferred out of the cath lab manager in stable condition without any chest pain. [...] compression method. LESION CHARACTERISTICS: 1. RCA COCOA MILLING MACHINE OPERATOR ACC/AHA type C lesion. 2. RUSLAN 0 [...] continuing Plavix and Coumadin x 12 months. Fredrick Warner MD PCG/MedQ /[id number] cc: - MARTHA FLOWERS in this encounter Plan of Treatment Not on fileas of this encounter Procedures Procedure Name Priority Date/Time Associated Diagnosis Comments TELEMETRY STRIPS-SCAN 08/21/2017 Results for this 2:42 PM TECHNICAL MAINTENANCE SPECIALIST procedure are in the results section. PROCEDURE RECORD-SCAN 08/21/2017 Results for this 1:47 PM TECHNICAL MAINTENANCE SPECIALIST procedure are in the results section. ECG-SCAN 08/21/2017 Results for this 10:46 AM TECHNICAL MAINTENANCE SPECIALIST procedure are in the results section. ECG-SCAN 08/13/2017 Results for this 7:30 AM TECHNICAL MAINTENANCE SPECIALIST procedure are in the results section. ECG-SCAN 08/12/2017 Results for this 9:40 PM TECHNICAL MAINTENANCE SPECIALIST procedure are in the results section. in this encounter Results * TELEMETRY STRIPS-SCAN (08/21/2017 2:42 PM) Narrative Ordered by an unspecified provider. * PROCEDURE RECORD-SCAN (08/21/2017 1:47 PM) Narrative Ordered by an unspecified provider. * ECG-SCAN (08/21/2017 10:46 AM) Narrative Ordered by an unspecified provider. * CARDIAC CATH REPORT (08/14/2017 10:36 AM) Specimen Performing Laboratory OTHER OUTSIDE LAB Procedure Note Boo Pretty MD - 08/12/2017 3:12 PM TECHNICAL MAINTENANCE SPECIALIST [facility] CARDIAC CATHETERIZATION REPORT Page 3 HOANG Piedra : 1970 KU#: [id number] KU MR #/Billing ID #: [id number] / [id number] DATE: 08/12/2017 DIGITAL PHOTOGRAPHIC PRINTER: Fredrick Warner MD DICTATING PROVIDER: Boo Pretty MD REFERRING PHYSICIAN: MARTHA FLOWERS [employer] DIRECTOR [employer]OL: Boo Pretty MD. PROCEDURES PERFORMED: 1. Selective right and left coronary angiograms with dual arterial injections. 2. Bilateral groin accesses, both 7-[place] common femoral arterial. 3. Dual coronary injections. 4. Chronic Total Occlusion (COCOA MILLING MACHINE OPERATOR) PCI of the proximal right RCA extending into the right PLV with 3 drug-eluting stents in overlapping fashion with antegrade wire escalation technique. 5. Right common femoral angiogram, limited. INDICATION FOR THE PROCEDURE: Hoang Linda is a pleasant, 47-year-old gentleman with a history of recent [id number]-[id number] SC, status post PCI to his left circumflex extending into his obtuse marginal with a Resolute Integrity stent from an outside institution. There was an attempted antegrade PCI on his RCA COCOA MILLING MACHINE OPERATOR, which was unsuccessful. We would like to [...] PROCEDURE: The patient was brought in the cath lab manager in the fasting, nonsedated state. After giving the patient a total of 225 mcg of fentanyl and 5 mg of Versed, we achieved moderate conscious sedation, which was monitored and maintained throughout the procedure for a total of 126 minutes. Respiratory, hemodynamic, and neurological parameters were monitored throughout the procedure by the operators and by the cath lab manager staff. The patient was prepped and draped in sterile fashion. We exposed bilateral groins and prepped with 1% chlorhexidine and instilled a total of 20 mL of 1% lidocaine for good local anesthesia in both groins. We then gained access into the right common femoral artery using a micropuncture needle and modified Seldinger technique to insert a 7-[place] 10 cm arterial sheath with good blood flow return. Similar technique was adopted to gain access to the left common femoral artery with the same 7-[place] 10 cm arterial sheath. We went in with the intent to perform a retrograde COCOA MILLING MACHINE OPERATOR PCI, and hence, we obtained dual coronary [...] OCCLUSION): 1. We used an EBU 3.75, 7-[place] guide catheter to engage the left main, while we used an AL1, 7-[place] guide catheter to engage the RCA for [...] approach. 3. We then switched the AL1, 7-[place] guide for a Hockey-Stick 1, 6-[place] guide, given the fact that an AL1 [...] not. We then switched out for a Quilting Supervisor 200, 0.014 x 300 cm wire and [...] the right PLV and switched out the Quilting Supervisor 200 wire for an 0.014 x 300 [...] the distal edge of the stent with amish of RUSLAN- 3 flow to the PLV. [...] complications, and was transferred out of the cath lab manager in stable condition without any chest pain. [...] compression method. LESION CHARACTERISTICS: 1. RCA COCOA MILLING MACHINE OPERATOR ACC/AHA type C lesion. 2. RUSLAN 0 [...] continuing Plavix and Coumadin x 12 months. Fredrick Warner MD PCG/MedQ /[id number] cc: - MARTHA FLOWERS * ECG-SCAN (08/13/2017 7:30 AM) Narrative Ordered by an unspecified provider. * CBC (08/13/2017 3:45 AM) Component Value Ref Range White Blood Cells [...] Specimen Performing Laboratory Blood MAIN LAB [address] [place] [address] * BASIC METABOLIC PANEL (08/13/2017 3:45 AM) Component Value Ref Range Sodium 138 137 [...] questions. Specimen Performing Laboratory [facility] MA[facility] [address] [place] [id number] * PROTIME INR (PT) (08/13/2017 3:45 AM) Component Value Ref Range INR 1.1 0.8 - 1.2 Specimen Performing Laboratory Blood MAIN [facility] [address] [place] [address] * ECG-SCAN (08/12/2017 9:40 PM) Narrative Ordered by an unspecified provider. * POC ACTIVATED CLOTTING TIME (08/12/2017 4:49 PM) Component Value Ref Range Activated Clotting Time 162 s Specimen Performing Laboratory MAIN LAB [address] [place] [id number] * POC ACTIVATED CLOTTING TIME (08/12/2017 4:18 PM) Component Value Ref Range Activated Clotting Time 186 s Specimen Performing Laboratory MAIN LAB [address] [place] [address] * POC ACTIVATED CLOTTING TIME (08/12/2017 4:00 PM) Component Value Ref Range Activated Clotting Time 183 s Specimen Performing Laboratory MAIN LAB [address] [place] [address] * POC ACTIVATED CLOTTING TIME (08/12/2017 2:55 PM) Component Value Ref Range Activated Clotting Time 400 s Specimen Performing Laboratory MAIN LAB [address] [place] [address] * POC ACTIVATED CLOTTING TIME (08/12/2017 2:34 PM) Component Value Ref Range Activated Clotting Time 251 s Specimen Performing Laboratory MAIN LAB [address] [place] [address] * POC ACTIVATED CLOTTING TIME (08/12/2017 2:08 PM) Component Value Ref Range Activated Clotting Time 349 s Specimen Performing Laboratory MAIN LAB [address] [place] [address] * POC ACTIVATED CLOTTING TIME (08/12/2017 1:35 PM) Component Value Ref Range Activated Clotting Time 337 s Specimen Performing Laboratory MAIN LAB [address] [place] [address] * POC ACTIVATED CLOTTING TIME (08/12/2017 1:05 PM) Component Value Ref Range Activated Clotting Time 370 s Specimen Performing Laboratory [facility] [address] [place] [address] in this encounter Visit Diagnoses Diagnosis 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) - Primary Ischemic cardiomyopathy Other specified forms of chronic ischemic heart disease NSTEMI (non-ST elevated myocardial infarction) (HCC) Acute myocardial infarction, subendocardial infarction, episode of care unspecified Tobacco abuse Tobacco use disorder in this encounter Admitting Diagnoses Diagnosis Chronic Total Occlusion CAD (coronary artery disease) in this encounter Administered Medications Medication Order MAR Action Action Date Dose Rate Site aspirin chewable tablet 81 mg Given 08/13/2017 81 mg 81 mg, Oral, DAILY, First dose on Sat 08:20 TECHNICAL MAINTENANCE SPECIALIST 08/12/17 at 1600, Until Discontinued atorvastatin (LIPITOR) tablet 40 mg Given 08/12/2017 40 mg 40 mg, Oral, DAILY, First dose on Sat 22:24 TECHNICAL MAINTENANCE SPECIALIST 08/12/17 at 1300, Until Discontinued, Admission/Obs/Extended Recovery Given 08/13/2017 40 mg 08:21 TECHNICAL MAINTENANCE SPECIALIST carisoprodol(+) (SOMA) tablet 350 mg Given 08/12/2017 350 mg 350 mg, Oral, AT BEDTIME DAILY, First 22:24 TECHNICAL MAINTENANCE SPECIALIST dose on Sat08/12/17 at 2100, Until Discontinued, Admission/Obs/Extended Recovery clopiDOGrel (PLAVIX) tablet 75 mg Given 08/13/2017 75 mg 75 mg, Oral, DAILY, First dose on Sat 08:21 TECHNICAL MAINTENANCE SPECIALIST 08/13/17 at 0900, Until Discontinued, Clopidogrel (PLAVIX) load given in cath lab manager. This Medication can increase the risk of bleeding and may need to be held prior to surgery or invasive procedures. Consult physician in advance. gabapentin (NEURONTIN) capsule 600 mg Given 08/12/2017 600 mg 600 mg, Oral, FOUR TIMES DAILY, First 15:47 TECHNICAL MAINTENANCE SPECIALIST dose on Sat08/12/17 at 1300, Until Discontinued, Admission/Obs/Extended Recovery Given 08/12/2017 600 mg 22:24 TECHNICAL MAINTENANCE SPECIALIST Given 08/13/2017 600 mg 08:20 TECHNICAL MAINTENANCE SPECIALIST HYDROcodone/acetaminophen (NORCO) 5/325 Given 08/12/2017 1 tablet mg tablet 1 tablet 15:47 TECHNICAL MAINTENANCE SPECIALIST 1 tablet, Oral, EVERY 6 HOURS PRN, Starting Sat08/12/17 at 1156, Until Sat08/13/17 at 1052, Pain PO, TOTAL ACETAMINOPHEN DOSE NOT TO EXCEED 4GM DAILY NOTE: This is a HIGH ALERT Medication. pantoprazole DR (PROTONIX) tablet 40 mg Given 08/12/2017 40 mg 40 mg, Oral, DAILY, First dose on Sat 22:24 TECHNICAL MAINTENANCE SPECIALIST 08/12/17 at 2100, Until Discontinued, Do not crush or chew tablet. sacubitril/valsartan (ENTRESTO) 24/26 mg Given 08/13/2017 1 tablet tablet 1 tablet 08:21 TECHNICAL MAINTENANCE SPECIALIST 1 tablet, Oral, TWICE DAILY, First dose on Sat08/13/17 at 0900, Until Discontinued, Admission/Obs/Extended Recovery sodium chloride 0.9 % infusion Given - New 08/12/2017 1,000 mL 50 mL /hr 1,000 mL, 1,000 mL, Intravenous, at 50 Bag 08:38 TECHNICAL MAINTENANCE SPECIALIST mL/hr, CONTINUOUS, Starting Sat08/12/17 at 0815, Until Sat08/12/17 at 1458, If EF is <40%, contact CCL Charge Nurse [phone] before initiating fluid. sodium chloride 0.9 % infusion Dose/Rate 08/12/2017 75 mL/hr 1,000 mL, Intravenous, at 75 mL/hr, Change 15:41 TECHNICAL MAINTENANCE SPECIALIST CONTINUOUS, Starting Sat08/12/17 at 1500, Until Sat08/13/17 at 0059, Once patient out of bed, then saline lock and DC IV fluid. Bolus from Infusion 08/12/2017 250 mL 999 mL/hr 17:30 TECHNICAL MAINTENANCE SPECIALIST Dose/Rate Verify 08/12/2017 75 mL/hr 17:45 TECHNICAL MAINTENANCE SPECIALIST warfarin (COUMADIN) tablet 7.5 mg Given 08/12/2017 7.5 mg 7.5 mg, Oral, TWO TIMES WEEKLY (Once per 22:25 TECHNICAL MAINTENANCE SPECIALIST day on Sat), First dose on Sat08/12/17 at 2100, Until Discontinued, NURSING: Provide patient with warfarin education leaflet and video. Do not give with cranberry juice. NOTE: This is a HIGH ALERT Medication. in this encounter
--- OUTSIDE RECORDS SUMMARY | 2017-09-15 11:47 | XMS REPORT | Encounter Summary ---
Author Author [facility] Organization [facility] Address Unknown Phone Unavailable Care Team Providers Care Spindle Carver Name Role Phone PCP Unavailable Encounter Details Date Type Department Care Team Description 08/12/2017 Orders Only [facility] Alee Awad RN Chronic anticoagulation [address] (Primary Dx) [address] [place] [address] Social History Tobacco Use Types Packs/Day Years Used Date Current Every Day Smoker Alcohol Use Drinks/Week oz/Week Comments No Sex Assigned at Date Recorded Not on file as of this encounter Plan of Treatment Not on fileas of this encounter Visit Diagnoses Diagnosis Chronic anticoagulation - Primary Long-term (current) use of anticoagulants in this encounter
--- OUTSIDE RECORDS SUMMARY | 2017-09-15 11:48 | XMS REPORT | Encounter Summary ---
Author Author [facility] Organization [facility] Address Unknown Phone Unavailable Care Team Providers Care Home Aide Name Role Phone PCP Unavailable Reason for Visit * Auth/Cert (Routine) Status Reason Specialty Diagnoses / Referred By Referred To Procedures Contact Contact Encounter Details Date Type Department Care Team Description 08/12/2017 Surgery Cardiac Catheterization Fredrick Warner MD Percutaneous Coronary Laboratory [address] Intervention of Chronic [address] [place] [address] [place] [address] Coronary Artery [phone] (Retrograde Approach) Social History Tobacco Use Types Packs/Day Years Used Date Current Every Day Smoker Alcohol Use Drinks/Week oz/Week Comments No Sex Assigned at Date Recorded Not on file as of this encounter Last Filed Vital Signs Vital Sign Reading Time Taken Blood Pressure 99/58 08/13/2017 7:35 AM SUPERVISOR EDUCATION Pulse 76 08/13/2017 7:35 AM SUPERVISOR EDUCATION Temperature 37.1 C (98.7 F) 08/13/2017 6:15 AM SUPERVISOR EDUCATION Respiratory Rate - - Oxygen Saturation 97% 08/13/2017 7:35 AM SUPERVISOR EDUCATION Inhaled Oxygen - - Concentration Weight 87.5 kg (192 lb 14.4 oz) 08/12/2017 8:13 AM SUPERVISOR EDUCATION Height 162.6 cm (5' 4.02") 08/12/2017 8:13 AM SUPERVISOR EDUCATION Body Mass Index 33.1 08/12/2017 8:13 AM SUPERVISOR EDUCATION in this encounter Discharge Summaries * Karlie Victor PA-C - 08/13/2017 8:00 AM SUPERVISOR EDUCATION Formatting of this note may be different from the original. Physician Discharge Summary Name: Hoang Linda Date Of : 1970 Age: 47 years Admit date: 08/12/2017 Discharge date: 08/13/2017 Attending Physician: Dr. Warner Service: Cardiology-Interventional Physician Summary completed by: Karlie Victor PA-C Reason for hospitalization: Coronary artery disease Significant PMH: Past Medical History: Diagnosis Date Coronary artery disease involving ponca of nebraska coronary artery of pon[place] of ne[place] heart with angina pectoris ([facility]) 08/07/2017 Coronary artery disease involving pon[place] of ne[place] coronary artery of pon[place] of [place] heart with angina pectoris ([facility]) 08/07/2017 07/12/17 - NSTEMI at [facility] in [place], [place]. Successful PCI with a Resolute Integrity 2.5 x 26 mm stent to the OM with Dr. Rhoades. Unsuccessful PCI to the RCA GRADING CLERK. Pt referred to Dr. Warner for possible GRADING CLERK procedure. 08/06/16 - Nuclear stress test ([facility]): No ischemia or arrhythmia on EKG. Diaphragmatic attenuation with reversible ischemia involving the mid to apic Ischemic cardiomyopathy Mild mitral regurgitation 08/07/2017 Mild tricuspid regurgitation 08/07/2017 NSTEMI (non-ST elevated myocardial infarction) ([facility]) 08/07/2017 Protein S deficiency ([facility]) 08/07/2017 Tobacco abuse 08/07/2017 Allergies: Pcn [penicillins] [...] underwent PCI of OM at [facility] in [place], [place]. He was also found to have GRADING CLERK of RCA. PCI was attempted which was [...] prevent stent thrombosis and possible myocardial infarction. JAVASCRIPT PROGRAMMER warfarin was resumed 08/12/17. No bridging is recommended per staff to minimize bleeding complications. PT/INR on Saturday. PT/INR managed by Primary machine shop supervisor. PT/ INR goal 2.0-3.0. Lipid profile as [...] allows and BP permits. F/u w/ Primary machine shop supervisor as already scheduled or sooner if needed. He will continue to wear LifeVest. Currently his primary machine shop supervisor is planning to repeat Echo in August. EKG NSR 72 bpm, PVC's. Non specific ST-T changes unchanged from prior. 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 Selective right and left coronary angiograms with dual arterial injections. 2. Bilateral groin accesses, both 7-Honduran common femoral arterial. 3. Dual coronary injections. 4. GRADING CLERK PCI of the proximal right RCA extending [...] and restaurant foods. Call your doctor (your machine shop supervisor, if you have one) if: -you gain more than 2 pounds in 24 hours. -you gain more than 5 pounds in 1 week. -any of your symptoms get worse Do NOT wait to let your doctor know about these changes. Questions About Your Stay For questions or concerns regarding your hospital stay: - DURING BUSINESS HOURS (8:00 AM - 4:30 PM): Call [phone] and asked to be transferred to your discharge attending physician. - AFTER BUSINESS HOURS (4:30 PM - 8:00 AM, on weekends, or holidays): Call [phone] and ask the stranding machine operator to page the on-call doctor for the discharge attending physician. Discharging attending physician: FREDRICK WARNER [[id number]] Cardiac Diet Limiting unhealthy fats and cholesterol [...] discharge. Return Appointment F/u with your primary machine shop supervisor as already scheduled with echo in August. [facility] Provider JEFFERY RHOADES [[id number]] Heart Failure Information You are at risk [...] 5 pounds in a week, call your machine shop supervisor immediately. EARLY REPORTING OF THESE CHANGES IS VERY IMPORTANT. [facility] [place] [facility] [place] is a gathering place for individuals, families, [...] please call . You can also visit [email or web address] for more information. CEA Education about Stroke It is important for you to recognize the signs of stroke and call 146 immediately. F.A.S.T. is an easy way to remember the sudden signs of a stroke. F - face drooping A - arm weakness S - speech difficulty T - TIME TO CALL 911 If you or anyone you know shows any of these signs, even if the signs go away, call [phone] IMMEDIATELY. Check the time so you will know when the first sign started. Current Discharge Medication List CONTINUE these medications which have been CHANGED or REFILLED Details aspirin EC 81 mg tablet Take 1 tablet by mouth daily for 7 days. Take with food. Qty: 90 tablet, Refills: 3 PRESCRIPTION TYPE: No Print Associated Diagnoses: Coronary artery disease involving ponca of ne[place] coronary artery of pon[place] of [place] heart with angina pectoris (HCC); Ischemic cardiomyopathy; NSTEMI (non -ST elevated myocardial infarction) ([facility]); Tobacco abuse CONTINUE these medications which have [...] tablets, call 911. PRESCRIPTION TYPE: Historical Med Paragonah-3 Acid Ethyl Esters 1 gram cap Take [...] Referring physicians: Dr. Jeffery Rhoades/Dr. Jayro Duran ([place], [place]) Additional provider(s): in this encounter Discharge Instructions * Patient Instructions - Dayan Easley RN - 08/13/2017 8:32 AM SUPERVISOR EDUCATION Manual Sheath Removal From A Large Vein [...] to speak with someone? During Business Hours: [facility] Cardiology Office at the [facility]: [phone] (Saturday-Saturday) [place]: [phone] (Saturday-Saturday) [place]: [phone] (Saturday-Saturday) [place]: [phone] (Saturday and ) [place]: [phone] (Saturday-Saturday) [place]: [phone] (Saturday-Saturday) [place]: [phone] (Saturday-) [facility]: [phone] (Saturday, Saturday and Saturday) [place]: [phone] (Saturday, Saturday and Saturday) [facility]): [phone] (Saturday, Saturday and Saturday) Nights and Weekends [facility] Cardiology Office at the [facility]: [phone] This education is meant to serve as a resource to you and your family. It is not meant to be all inclusive. The members of the [facility] at [facility]iology, , will be glad [...] Pain. Max of 3 tablets, call 911. Paragonah-3 Acid Ethyl Esters Take 1 g by [...] Take Coronary artery disease with food. involving ponca of nebraska coronary artery of ponca of [place] heart with angina pectoris (HCC), Ischemic cardiomyopathy, NSTEMI (non-ST elevated myocardial infarction) (HCC), Tobacco abuse as of this encounter Progress Notes * Wilfredo Gardner RN - 08/13/2017 8:52 AM SUPERVISOR EDUCATION Cardiac Rehab Call Back Note: Spoke with patient. He will start OPCR in [place] this Saturday. Are you tolerating activity?Yes Is pain controlled?Yes Is appetite normal?Yes Are you having symptoms of heart discomfort?No Are you having signs of infection at your incision sites or groin site?No Do you want outpt cardiac rehab?Yes * Cassidy Tracy RN - 08/13/2017 8:52 AM SUPERVISOR EDUCATION I have reviewed the notes, assessment, and/or procedures performed by Dayan Easley RN and concur with her/his documentation unless otherwise noted. * Dayan Easley RN - 08/13/2017 8:51 AM SUPERVISOR EDUCATION Patient discharged to home with all belongings. Discharge instructions, med reconciliation and home wound care instructions given and explained to patient and family both verbally and written. Accompanied by family. No complaints of pain or discomfort. Bilateral groins remains clean, dry, and intact with no evidence of a hematoma after ambulation. [facility]. Patient to follow up with [facility]iology ([facility]) or on-call physician with any additional questions or concerns. All contact numbers provided. Patient and family acceptant of DC instuctions and report understanding to all information. * Wilfredo Gardner RN - 08/13/2017 6:46 AM SUPERVISOR EDUCATION Formatting of this note may be different from the original. CARDIOPULMONARY REHABILITATION INPATIENT ASSESSMENT Cardiac Rehabilitation Staff: Elia Gardner RN Discharge Date: Demographics Pre-admit Dx: Date of Admission: 08/12/2017 Room: [address] : 1970 Insurance: Primary: /[facility] Secondary: . 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 ED Contact: Yazmin Linda ED Phone #: [phone] CTS: DEBORAH Pack Train Driver: Timmy Cardiac Procedures and Events PCI: 08/12/17 Risk Factors BP: 97/54 Height: 162.6 cm (64.02") Weight: 87.5 kg (192 lb 14.4 oz) BMI (Calculated): 33.09 Medical History has a past medical history of Coronary artery disease involving ponca of [place] coronary artery of ponca of ne[place] heart with angina pectoris (HCC) (08/07/2017); Coronary artery disease involving ponca of [place] coronary artery of ponca of ne[place] heart with angina pectoris (HCC) (08/07/2017); Ischemic cardiomyopathy; Mild mitral regurgitation (08/07/2017); Mild tricuspid regurgitation (08/07/2017); NSTEMI ( non-ST elevated myocardial infarction) ([facility]) (08/07/2017); Protein S deficiency ([facility]) (08/07/2017); and Tobacco abuse (08/07/2017). Labs No results found for: CHOL, TRIG, HDL, LDL, HGBA1C, A1C, TNI Heart Resource Manual Given: 08/13/17 Teaching Completed: 08/13/17 Outpatient Cardiopulmonary Rehabilitation OPCR: Yes Referral Faxed to: [place] Date Faxed: 08/13/17 (Currently enrolled. Update faxed to [facility]) Location: [place], [place] If [facility], Sent to Staff: Wilfredo Gardner RN 08/13/2017 * Wilfredo Gardner RN - 08/13/2017 6:44 AM SUPERVISOR EDUCATION Introduced self to patient and gave copy of the Heart Resource Manual pertaining to coronary interventions. He is currently enrolled in the program at [facility] in [place], [place] and will continue when cleared by machine shop supervisor. I have faxed an update to [facility]. * Dayan Easley, LILA - 08/12/2017 5:57 PM SUPERVISOR EDUCATION Formatting of this note may be different [...] Boo Pretty MD - 08/12/2017 5:53 PM SUPERVISOR EDUCATION Mr. Linda was seen and examined in CTR after the GRADING CLERK PCI with a full metal jacket stenting [...] asymptomatic at this juncture. Bilateral sheaths 7 Honduran have been removed with excellent hemostasis. This appears to be a significant vagal response associated with sheath pull. I do not suspect any bleeding at this point in time. Please call me if his clinical status changes. Boo Pretty M.D. Fellow in Interventional Cardiology Beeper # [id number] * Cassidy Tracy, LILA - 08/12/2017 4:45 PM SUPERVISOR EDUCATION I have reviewed the notes, assessment, and/or procedures performed by Dayan Easley RN and concur with her/his documentation unless otherwise noted. * Karlie Victor PA-C - 08/12/2017 3:04 PM SUPERVISOR EDUCATION S/p 3 KENNEDY to RCA. Recent NSTEMI [...] DC home in am. F/u with Primary machine shop supervisor as already scheduled or sooner if needed. Maximize treatment for LVD with GDMT as pt. Can tolerate, renal function allows and BP permits. Karlie Victor PA-C (pgr [phone]) * Denisse Vidal, - 08/12/2017 11:12 AM SUPERVISOR EDUCATION Formatting of this note may be different [...] Date: 08/12/2017 [place]cloud AC=Airway clearance AM=Aerosolized medication BA=Gooding aerosol DB&C=Deep breathe & cough FEV1=Forced expiratory volume in first second) IC=Inspiratory capacity LE=Lung expansion MDI=Metered dose inhaler Neb=Nebulizer O2=Oxygen Oxim=Oximetry PEFR=Peak expiratory flow rate COMMERCIAL ESTIMATOR=Rapid Response Team * Dayan Easley RN - 08/12/2017 8:01 AM SUPERVISOR EDUCATION Patient arrived on unit via ambulation accompanied by RN. Patient transferred to the bed without assistance. Assessment completed, refer to flowsheet for details. Orders released, reviewed, and implemented as appropriate. Oriented to surroundings, call light within reach. Plan of care reviewed. Will continue to monitor and assess. in this encounter H&P Notes * Karlie Victor PA-C - 08/12/2017 9:37 AM SUPERVISOR EDUCATION Formatting of this note may be different [...] which is occluded proximally. He has good wtye-mc-rklvx collateralization to the posterior descending and posterior [...] Diagnosis Date Noted Coronary artery disease involving ponca of [place] coronary artery of ponca of [place] heart with angina pectoris (HCC) 08/07/2017 07/12/17 - NSTEMI at [facility] in [place], [place]. Successful PCI with a Resolute Integrity 2.5 x 26 mm stent to the OM with Dr. Rhoades. Unsuccessful PCI to the RCA GRADING CLERK. Pt referred to Dr. Warner for possible GRADING CLERK procedure. 08/06/16 - Nuclear stress test ([facility]): No ischemia or arrhythmia on EKG. Diaphragmatic attenuation with reversible ischemia involving the mid to apical inferior wall and inferolateral wall. Normal left ventricular size with mild hypokinesis at the lateral wall. EF 50%. Previous history of Promus stent placement to OM - date unknown. NSTEMI (non-ST elevated myocardial infarction) ([facility]) 08/07/2017 07/12/17 at [facility] [place] in [place], [place]. Tobacco abuse 08/07/2017 Ischemic cardiomyopathy 08/07/2017 07/12/17 - Echo ([facility]): EF 30-35%. Left ventricular cavity size increased. Wall thickness normal. Regional wall motion abnormalities. Akinesis of the inferior myocardium. Akinesis of the lateral myocardium. 07/12/17 - NSTEMI - EF 20%, severe left ventricular systolic function (per cath report). Life Vest applied for primary prevention of sudden cardiac . Mild mitral regurgitation 08/07/2017 Mild tricuspid regurgitation 08/07/2017 Protein S deficiency ([facility]) 08/07/2017 On warfarin. Review of Systems Constitution: [...] Diagnoses Name Primary? Coronary artery disease involving ponca of [place] coronary artery of ponca of [place] heart with angina pectoris (HCC) Yes Ischemic [...] Pain. Max of 3 tablets, call 911. Paragonah-3 Acid Ethyl Esters 1 gram cap Take [...] Boo Pretty MD - 08/12/2017 3:12 PM SUPERVISOR EDUCATION Associated Order(s): CARDIAC CATH REPORT [facility] CARDIAC CATHETERIZATION REPORT Page 3 HOANG Piedra : 1970 [facility]#: [id number] MR #/Billing ID #: [id number] / [id number] DATE: 08/12/2017 STEEL SHOT HEADER OPERATOR: Fredrick Warner MD DICTATING PROVIDER: Boo Pretty MD REFERRING PHYSICIAN: MARTHA FLOWERS INTERVENTIONAL WASTE EXAMINER: Boo Pretty MD. PROCEDURES PERFORMED: 1. Selective right and left coronary angiograms with dual arterial injections. 2. Bilateral groin accesses, both 7-Honduran common femoral arterial. 3. Dual coronary injections. 4. Chronic Total Occlusion (GRADING CLERK) PCI of the proximal right RCA extending into the right PLV with 3 drug-eluting stents in overlapping fashion with antegrade wire escalation technique. 5. Right common femoral angiogram, limited. INDICATION FOR THE PROCEDURE: Hoang Linda is a pleasant, 47-year-old gentleman with a history of recent she-[place]utt [place], status post PCI to his left circumflex extending into his obtuse marginal with a Resolute Integrity stent from an outside institution. There was an attempted antegrade PCI on his RCA GRADING CLERK, which was unsuccessful. We would like to [...] PROCEDURE: The patient was brought in the geochemical laboratory technician in the fasting, nonsedated state. After giving the patient a total of 225 mcg of fentanyl and 5 mg of Versed, we achieved moderate conscious sedation, which was monitored and maintained throughout the procedure for a total of 126 minutes. Respiratory, hemodynamic, and neurological parameters were monitored throughout the procedure by the operators and by the geochemical laboratory technician staff. The patient was prepped and draped in sterile fashion. We exposed bilateral groins and prepped with 1% chlorhexidine and instilled a total of 20 mL of 1% lidocaine for good local anesthesia in both groins. We then gained access into the right common femoral artery using a micropuncture needle and modified Seldinger technique to insert a 7-Honduran 10 cm arterial sheath with good blood flow return. Similar technique was adopted to gain access to the left common femoral artery with the same 7-Honduran 10 cm arterial sheath. We went in with the intent to perform a retrograde GRADING CLERK PCI, and hence, we obtained dual coronary [...] OCCLUSION): 1. We used an EBU 3.75, 7-Honduran guide catheter to engage the left main, while we used an AL1, 7-Honduran guide catheter to engage the RCA for [...] approach. 3. We then switched the AL1, 7-Honduran guide for a Hockey-Stick 1, 6-Honduran guide , given the fact that an [...] not. We then switched out for a [employer] 200, 0.014 x 300 cm wire and [...] the right PLV and switched out the [employer] 200 wire for an 0.014 x 300 [...] the distal edge of the stent with confucianist of RUSLAN- 3 flow to the PLV. [...] complications, and was transferred out of the geochemical laboratory technician in stable condition without any chest pain. Dr. Warner, my attending, was scrubbed and performed mccloud portions of the procedure and supervised the rest of it as well. TOTAL CONTRAST USED: 340 mL. TOTAL AIR KERMA: 3528 mGy. Right common femoral angiogram demonstrated a high bifurcation of the right side , and hence, we opted for manual compression method. LESION CHARACTERISTICS: 1. RCA GRADING CLERK ACC/AHA type C lesion. 2. RUSLAN 0 [...] x 12 months. Fredrick Warner MD PCG/MedQ /[id number] cc: - MARTHA FLOWERS in this encounter Plan of Treatment Not on fileas of this encounter Procedures Procedure Name Priority Date/Time Associated Diagnosis Comments TELEMETRY STRIPS-SCAN 08/21/2017 Results for this 2:42 PM SUPERVISOR EDUCATION procedure are in the results section. PROCEDURE RECORD-SCAN 08/21/2017 Results for this 1:47 PM SUPERVISOR EDUCATION procedure are in the results section. ECG-SCAN 08/21/2017 Results for this 10:46 AM SUPERVISOR EDUCATION procedure are in the results section. ECG-SCAN 08/13/2017 Results for this 7:30 AM SUPERVISOR EDUCATION procedure are in the results section. ECG-SCAN 08/12/2017 Results for this 9:40 PM SUPERVISOR EDUCATION procedure are in the results section. in [...] Boo Pretty MD - 08/12/2017 3:12 PM SUPERVISOR EDUCATION [facility] CARDIAC CATHETERIZATION REPORT Page 3 HOANG Piedra : 1970 #: [id number] MR #/Billing ID #: [id number] / [id number] DATE: 08/12/2017 STEEL SHOT HEADER OPERATOR: Fredrick Warner MD DICTATING PROVIDER: Boo Pretty MD REFERRING PHYSICIAN: MARTHA FLOWERS INTERVENTIONAL WASTE EXAMINER: Boo Pretty MD. PROCEDURES PERFORMED: 1. Selective right and left coronary angiograms with dual arterial injections. 2. Bilateral groin accesses, both 7-Honduran common femoral arterial. 3. Dual coronary injections. 4. Chronic Total Occlusion (GRADING CLERK) PCI of the proximal right RCA extending into the right PLV with 3 drug-eluting stents in overlapping fashion with antegrade wire escalation technique. 5. Right common femoral angiogram, limited. INDICATION FOR THE PROCEDURE: Hoang Linda is a pleasant, 47-year-old gentleman with a history of recent zui-JW-wxibfrcrc [place], status post PCI to his left circumflex extending into his obtuse marginal with a Resolute Integrity stent from an outside institution. There was an attempted antegrade PCI on his RCA GRADING CLERK, which was unsuccessful. We would like to [...] PROCEDURE: The patient was brought in the geochemical laboratory technician in the fasting, nonsedated state. After giving the patient a total of 225 mcg of fentanyl and 5 mg of Versed, we achieved moderate conscious sedation, which was monitored and maintained throughout the procedure for a total of 126 minutes. Respiratory, hemodynamic, and neurological parameters were monitored throughout the procedure by the operators and by the geochemical laboratory technician staff. The patient was prepped and draped in sterile fashion. We exposed bilateral groins and prepped with 1% chlorhexidine and instilled a total of 20 mL of 1% lidocaine for good local anesthesia in both groins. We then gained access into the right common femoral artery using a micropuncture needle and modified Seldinger technique to insert a 7-Honduran 10 cm arterial sheath with good blood flow return. Similar technique was adopted to gain access to the left common femoral artery with the same 7-Honduran 10 cm arterial sheath. We went in with the intent to perform a retrograde GRADING CLERK PCI, and hence, we obtained dual coronary [...] OCCLUSION): 1. We used an EBU 3.75, 7-Honduran guide catheter to engage the left main, while we used an AL1, 7-Honduran guide catheter to engage the RCA for [...] approach. 3. We then switched the AL1, 7-Honduran guide for a Hockey-Stick 1, 6-Honduran guide, given the fact that an AL1 [...] not. We then switched out for a [employer] 200, 0.014 x 300 cm wire and [...] the right PLV and switched out the [employer] 200 wire for an 0.014 x 300 [...] the distal edge of the stent with confucianist of RUSLAN- 3 flow to the PLV. [...] complications, and was transferred out of the geochemical laboratory technician in stable condition without any chest pain. Dr. Warner, my attending, was scrubbed and performed mccloud portions of the procedure and supervised the rest of it as well. TOTAL CONTRAST USED: 340 mL. TOTAL AIR KERMA: 3528 mGy. Right common femoral angiogram demonstrated a high bifurcation of the right side , and hence, we opted for manual compression method. LESION CHARACTERISTICS: 1. RCA GRADING CLERK ACC/AHA type C lesion. 2. RUSLAN 0 [...] Coumadin x 12 months. Fredrick Warner MD PCG/MedYola /[id number] cc: - MARTHA FLOWERS * ECG-SCAN (08/13/2017 [...] - 11 [place] Specimen Performing Laboratory Blood [facility] [address] [place] [address] * BASIC METABOLIC PANEL (08/13/2017 3:45 AM) [...] questions. Specimen Performing Laboratory Blood MAIN LAB [address] [place] [id number] * PROTIME INR (PT) (08/13/2017 3:45 AM) Component Value Ref Range INR 1.1 0.8 - 1.2 Specimen Performing Laboratory Blood MAIN LAB [address] [place] [id number] * ECG-SCAN (08/12/2017 9:40 PM) Narrative Ordered by an unspecified provider. * POC ACTIVATED CLOTTING TIME (08/12/2017 4:49 PM) Component Value Ref Range Activated Clotting Time 162 s Specimen Performing Laboratory MAIN LAB [address] [place] [address] * POC ACTIVATED CLOTTING TIME (08/12/2017 4:18 PM) Component Value Ref Range Activated Clotting Time 186 s Specimen Performing Laboratory MAIN LAB [address] [place] [address] * POC ACTIVATED CLOTTING TIME (08/12/2017 4:00 PM) Component Value Ref Range Activated Clotting Time 183 s Specimen Performing Laboratory MAIN LAB [address] [place] [address] 36261 * POC ACTIVATED CLOTTING TIME (08/12/2017 2:55 PM) Component Value Ref Range Activated Clotting Time 400 s Specimen Performing Laboratory MAIN LAB [address] [place] [address] 38630 * POC ACTIVATED CLOTTING TIME (08/12/2017 2:34 PM) Component Value Ref Range Activated Clotting Time 251 s Specimen Performing Laboratory MAIN LAB [address] [place] [address]30 * POC ACTIVATED CLOTTING TIME (08/12/2017 2:08 PM) Component Value Ref Range Activated Clotting Time 349 s Specimen Performing Laboratory MAIN LAB [address] [place] [address] 28622 * POC ACTIVATED CLOTTING TIME (08/12/2017 1:35 PM) Component Value Ref Range Activated Clotting Time 337 s Specimen Performing Laboratory MAIN LAB [address] [place] [address]5933 * POC ACTIVATED CLOTTING TIME (08/12/2017 1:05 PM) Component Value Ref Range Activated Clotting Time 370 s Specimen Performing Laboratory MAIN LAB [address] [place], [place] [address] [address] in this encounter Visit Diagnoses Not on filein this encounter Admitting Diagnoses Diagnosis Chronic Total Occlusion CAD (coronary artery disease) in this encounter Administered Medications Medication Order MAR Action Action Date Dose Rate Site aspirin chewable tablet 81 mg Given 08/13/2017 81 mg 81 mg, Oral, DAILY, First dose on Sat 08:20 SUPERVISOR EDUCATION 08/12/17 at 1600, Until Discontinued atorvastatin (LIPITOR) tablet 40 mg Given 08/12/2017 40 mg 40 mg, Oral, DAILY, First dose on Sat 22:24 SUPERVISOR EDUCATION 08/12/17 at 1300, Until Discontinued, Admission/Obs/Extended Recovery Given 08/13/2017 40 mg 08:21 SUPERVISOR EDUCATION carisoprodol(+) (SOMA) tablet 350 mg Given 08/12/2017 350 mg 350 mg, Oral, AT BEDTIME DAILY, First 22:24 SUPERVISOR EDUCATION dose on Sat08/12/17 at 2100, Until Discontinued, Admission/Obs/Extended Recovery clopiDOGrel (PLAVIX) tablet 75 mg Given 08/13/2017 75 mg 75 mg, Oral, DAILY, First dose on Sat 08:21 SUPERVISOR EDUCATION 08/13/17 at 0900, Until Discontinued, Clopidogrel (PLAVIX) load given in geochemical laboratory technician. This Medication can increase the risk of bleeding and may need to be held prior to surgery or invasive procedures. Consult physician in advance. gabapentin (NEURONTIN) capsule 600 mg Given 08/12/2017 600 mg 600 mg, Oral, FOUR TIMES DAILY, First 15:47 SUPERVISOR EDUCATION dose on Sat08/12/17 at 1300, Until Discontinued, Admission/Obs/Extended Recovery Given 08/12/2017 600 mg 22:24 SUPERVISOR EDUCATION Given 08/13/2017 600 mg 08:20 SUPERVISOR EDUCATION HYDROcodone/acetaminophen (NORCO) 5/325 Given 08/12/2017 1 tablet mg tablet 1 tablet 15:47 SUPERVISOR EDUCATION 1 tablet, Oral, EVERY 6 HOURS PRN, Starting Sat08/12/17 at 1156, Until Sat08/13/17 at 1052, Pain PO, TOTAL ACETAMINOPHEN DOSE NOT TO EXCEED 4GM DAILY NOTE: This is a HIGH ALERT Medication. pantoprazole DR (PROTONIX) tablet 40 mg Given 08/12/2017 40 mg 40 mg, Oral, DAILY, First dose on Sat 22:24 SUPERVISOR EDUCATION 08/12/17 at 2100, Until Discontinued, Do not crush or chew tablet. sacubitril/valsartan (ENTRESTO) 24/26 mg Given 08/13/2017 1 tablet tablet 1 tablet 08:21 SUPERVISOR EDUCATION 1 tablet, Oral, TWICE DAILY, First dose on Sat08/13/17 at 0900, Until Discontinued, Admission/Obs/Extended Recovery sodium chloride 0.9 % infusion Given - New 08/12/2017 1,000 mL 50 mL /hr 1,000 mL, 1,000 mL, Intravenous, at 50 Bag 08:38 SUPERVISOR EDUCATION mL/hr, CONTINUOUS, Starting Sat08/12/17 at 0815, Until Sat08/12/17 at 1458, If EF is <40%, contact CCL Charge Nurse [phone] before initiating fluid. sodium chloride 0.9 % infusion Dose/Rate 08/12/2017 75 mL/hr 1,000 mL, Intravenous, at 75 mL/hr, Change 15:41 SUPERVISOR EDUCATION CONTINUOUS, Starting Sat08/12/17 at 1500, Until Sat08/13/17 at 0059, Once patient out of bed, then saline lock and DC IV fluid. Bolus from Infusion 08/12/2017 250 mL 999 mL/hr 17:30 SUPERVISOR EDUCATION Dose/Rate Verify 08/12/2017 75 mL/hr 17:45 SUPERVISOR EDUCATION warfarin (COUMADIN) tablet 7.5 mg Given 08/12/2017 7.5 mg 7.5 mg, Oral, TWO TIMES WEEKLY (Once per 22:25 SUPERVISOR EDUCATION day on Sat), First dose on Sat08/12/17 at 2100, Until Discontinued, NURSING: Provide patient with warfarin education leaflet and video. Do not give with cranberry juice. NOTE: This is a HIGH ALERT Medication. in this encounter
--- OUTSIDE RECORDS SUMMARY | 2017-09-15 11:48 | XMS REPORT | Encounter Summary ---
Author Author [facility] Organization [facility] Address Unknown Phone Unavailable Care Team Providers Care [facility] Products Assembler Name Role Phone PCP Unavailable Reason for Visit * Reason Comments New Patient patient profile Encounter Details Date Type Department Care Team Description 08/07/2017 Patient Profile [facility] Alee Awad RN New Patient (patient [address] [place] profile) [address] [place] [address] Social History Tobacco Use Types Packs/Day Years Used Date Current Every Day Smoker Alcohol Use Drinks/Week oz/Week Comments No Sex Assigned at Date Recorded Not on file as of this encounter Plan of Treatment Not on fileas of this encounter Visit Diagnoses Diagnosis Protein S deficiency (HCC) Primary hypercoagulable state in this encounter
--- OUTSIDE RECORDS SUMMARY | 2017-09-15 11:48 | XMS REPORT | Encounter Summary ---
Author Author [facility] Organization [facility] Address Unknown Phone Unavailable Care Team Providers Care Assistant Chief Of Police Name Role Phone PCP Unavailable Reason for Visit * Reason Comments Precertification Approval for L[place]ORS through [employer] [place] Encounter Details Date Type Department Care Team Description 08/08/2017 Documentation [facility] Favian Smith, RN Precertification [address] (Approval for LVCORS [address] through [employer] [place]) [place] [address] Social History Tobacco Use Types Packs/Day Years Used Date Current Every Day Smoker Alcohol Use Drinks/Week oz/Week Comments No Sex Assigned at Date Recorded Not on file as of this encounter Progress Notes * Favian Smith, RN - 08/08/2017 1:57 PM TOOL OPERATOR [place] with [employer] [place] for [place], , confirmed benefits and eligibility: Current and active since 04/26/2016, $2750 deductible with required co-insurance of 25% to max OOP $6850, then plan will pay 100% of allowable charges. No pre-certification is required for LVCORS with PCI of [employer] [id number]. Reference #[id number] in this encounter Plan of Treatment Not on fileas of this encounter Visit Diagnoses Not on filein this encounter
--- OUTSIDE RECORDS SUMMARY | 2017-09-15 11:48 | XMS REPORT | Encounter Summary ---
Author Author [facility] Organization [facility] Address Unknown Phone Unavailable Care Team Providers Care Rn Radiation Name Role Phone PCP Unavailable Reason for Visit * Reason Comments Appointment cath & OV same day Encounter Details Date Type Department Care Team Description 08/07/2017 Telephone [facility]iology Alee Awad RN Appointment (cath & OV [address] [place] same day) [address] [place] [address] Social History Tobacco Use Types Packs/Day Years Used Date Current Every Day Smoker Alcohol Use Drinks/Week oz/Week Comments No Sex Assigned at Date Recorded Not on file as of this encounter Miscellaneous Notes * Telephone Encounter - Alee Awad RN - 08/08/2017 1:35 PM INTERIOR PAINTER TERRITORY BUSINESS MANAGER cath date confirmed for this 08/12 - confirmed with Dr. Warner and with spouse. * Telephone Encounter - Alee Awad RN - 08/07/2017 2:37 PM INTERIOR PAINTER Connected with patient's spouse, Yazmin, over the phone this afternoon. Let her know I am checking with Dr. Warner about a possible cath and OV same day either Saturday, 08/12 or 08/14. She states either date works for them. Home number listed on pt's chart is spouse's cell number. She can be reached there anytime. * Telephone Encounter - Alee Awad RN - 08/07/2017 2:36 PM INTERIOR PAINTER ----- Message from Meredith Yoder sent at 08/07/2017 1:23 PM INTERIOR PAINTER ----- Regarding: apt request Call pt back at [phone] Yazmin if it's before 3 in this encounter Plan of Treatment Not on fileas of this encounter Visit Diagnoses Not on filein this encounter
--- OUTSIDE RECORDS SUMMARY | 2017-09-15 11:48 | XMS REPORT | Encounter Summary ---
Author Author [facility] Organization [facility] Address Unknown Phone Unavailable Care Team Providers Care Header Dock Name Role Phone PCP Unavailable Reason for Visit * Reason Comments Labs Only CBC/BMP (creat clearance 149.06) Encounter Details Date Type Department Care Team Description 08/09/2017 Documentation [facility] Alee Awad RN Labs Only (CBC/BMP (creat [address] [place] clearance 149.06) ) [address] [place] [address] Social History Tobacco Use Types Packs/Day Years Used Date Current Every Day Smoker Alcohol Use Drinks/Week oz/Week Comments No Sex Assigned at Date Recorded Not on file as of this encounter Plan of Treatment Not on fileas of this encounter Results * CBC (08/09/2017) Component Value Ref Range White Blood Cells 7.4 RBC 4.80 Hemoglobin 13.7 Hematocrit 42 MCV 87 MCH 29 MCHC 33 Platelet Count 291 MPV 9.0 RDW 13.9 Specimen Performing Laboratory Blood [facility] [address] [place] [address] * BASIC METABOLIC PANEL (08/09/2017) Component Value Ref Range Sodium 142 Potassium 4.5 Chloride 105 CO2 27 Blood Urea Nitrogen 16 Creatinine 0.74 Glucose 100 Calcium 10.0 eGFR Non >60 eGFR Anion Gap 10 Specimen Performing Laboratory Blood [facility] [address] [place] [address] in this encounter Visit Diagnoses Diagnosis Pre-procedure lab exam Pre-procedural laboratory examination Coronary artery disease involving [place] coronary artery of [place] heart with angina pectoris (HCC) in this encounter
--- OUTSIDE RECORDS SUMMARY | 2017-09-15 11:48 | XMS REPORT | Encounter Summary ---
Author Author [facility] Organization [facility] Address Unknown Phone Unavailable Care Team Providers Care Landfill Gas Technician Name Role Phone PCP Unavailable Reason for Visit * Reason Comments Referral SENIOR STRATEGY MANAGER - Dr. Warner Encounter Details Date Type Department Care Team Description 07/24/2017 Telephone [facility] Cardiology Alee Awad RN Referral (SENIOR STRATEGY MANAGER - [address]) [address] [place] [address] Social History Tobacco Use Types Packs/Day Years Used Date Never Assessed Sex Assigned at Date Recorded Not on file as of this encounter Miscellaneous Notes * Telephone Encounter - Anali Gonzalez RN - 08/06/2017 3:26 PM SERVICE DEPARTMENT MANAGER Rec'd vm from Dr. Rhoades's nurse, Dayan re: referral for pt SENIOR STRATEGY MANAGER PCI. Dr. Warner also advised he spoke with Dr. Rhoades and wants to proceed with OV/PCI same day. Contacted Dr. Rhoades's nurse back with this information. Nurse gave a better contact number for pt of [phone]. Msg sent to Dr. Warner's admin to work in pt for OV before PCI. Will contact pt to schedule OV and PCI. * Telephone Encounter - Alee Awad RN - 08/05/2017 2:57 PM SERVICE DEPARTMENT MANAGER Voicemail received from Malgorzata - pt's last NUC was 07/2016. Dr. Warner is okay with this and okay to proceed with cath scheduling as long as NUC shows viability. LM for Malgorzata to please call back. Dr. Warner also sent a message to Dr. Duran regarding this information. Need NUC results faxed to us. They were not included in the original records fax we received. * Telephone Encounter - Alee Awad RN - 08/01/2017 6:51 PM SERVICE DEPARTMENT MANAGER Dr. Warner reviewed cath images this afternoon. [...] Alee Awad RN - 07/30/2017 11:32 AM SERVICE DEPARTMENT MANAGER CD not yet received. Connected with Malgorzata at Dr. Duran's office over the phone this morning to check in. She states she will call the hospital to ensure they have been mailed. If they haven't, asked that they please be sent via [employer] overnight. She will keep us posted. Malgorzata phone: , fax: * Telephone Encounter - Alee Awad RN - 07/24/2017 3:41 PM SERVICE DEPARTMENT MANAGER Per Favian, no precert is needed for the cath procedure. Will await the cath images on CD. Called Malgorzata to update her that we will plan to schedule OV and cath on the same day once Dr. Warner has reviewed the images. * Telephone Encounter - Alee Awad RN - 07/24/2017 12:14 PM SERVICE DEPARTMENT MANAGER Received a referral for possible SENIOR STRATEGY MANAGER procedure with Dr. Warner from Dr. Duran in [place], [place]. Checking with Favian about insurance precert then will schedule the patient accordingly. Prefer to schedule H&P and cath on the same day due to the patient drive and Dr. Warner's limited clinic availability and to expedite getting pt to procedure. Will await the feedback. Paper records received from LILA Mcgarry. She is sending the cath images on CD via [employer]. We will need Dr. Warner to review the images before patient is scheduled - to assess whether pt is a candidate for high risk PCI. in this encounter Plan of Treatment Not on fileas of this encounter Visit Diagnoses Not on filein this encounter
--- OUTSIDE RECORDS SUMMARY | 2017-09-15 11:51 | XMS REPORT | Continuity of Care Document ---
Author Author [facility] Address Unknown Phone Unavailable Allergies Active Description Code Type Severity Reaction Onset Reported/Identified Relationship to Patient Clinical Status Yes Penicillins [id number] Drug Allergy Mild N/A 01/27/2009 Yes Penicillins Drug Allergy 07/16/2009 Yes Penicillins Drug Allergy N/A N/A 07/16/2009 Medications There is no data. Problems Date Dx Coded Attending Type Code Diagnosis Diagnosed By 04/15/2006 Ot 415.19 07/16/2006 Ot V58.61 07/16/2006 Ot V58.83 10/20/2006 Ot V58.61 10/20/2006 Ot V58.83 02/12/2007 Ot V58.61 02/12/2007 Ot V58.83 05/14/2007 Ot V58.61 05/14/2007 Ot V58.83 10/05/2007 Ot V58.61 10/05/2007 Ot V58.83 02/02/2008 Ot V58.61 02/02/2008 Ot V58.83 05/03/2008 Ot V58.61 05/03/2008 Ot V58.83 05/26/2008 CALVIN SCHERER DO 214.9 LIPOMA UNSPECIFIED SITE 05/26/2008 UTE PUTNAM APRN 214.9 LIPOMA UNSPECIFIED SITE 05/26/2008 TRE SULTANA APRN 214.9 LIPOMA UNSPECIFIED SITE 06/03/2008 CALVIN SCHERER DO 729.5 PAIN IN LIMB 06/03/2008 CALVIN SCHERER DO 782.3 EDEMA 06/03/2008 UTE PUTNAM APRN 729.5 PAIN IN LIMB 06/03/2008 UTE PUTNAM APRN 782.3 EDEMA 06/03/2008 TRE SULTANA APRN 729.5 PAIN IN LIMB 06/03/2008 TRE SULTANA APRN 782.3 EDEMA 08/08/2008 Ot V58.61 08/08/2008 Ot V58.83 05/24/2009 Ot V12.51 05/24/2009 Ot V58.61 05/24/2009 Ot V58.83 07/16/2009 CALVIN SCHERER DO K 487.8 INFLUENZA, WITH OTHER MANIFESTATIONS 07/16/2009 UTE PUTNAM APRN R 487.8 INFLUENZA, WITH OTHER MANIFESTATIONS 07/16/2009 TRE SULTANA APRN 487.8 INFLUENZA, WITH OTHER MANIFESTATIONS 08/29/2009 Ot V12.51 08/29/2009 Ot V58.61 08/29/2009 Ot V58.83 10/17/2009 HERBERT SCHERER DOA K 787.01 NAUSEA WITH VOMITING 10/17/2009 NIESHA BECK CALVIN K 787.91 DIARRHEA 10/17/2009 UTE PUTNAM APRN R 787.01 NAUSEA WITH VOMITING 10/17/2009 UTE PUTNAM APRN R 787.91 DIARRHEA 10/17/2009 TRE SULTANA APRN 787.01 NAUSEA WITH VOMITING 10/17/2009 TRE SULTANA APRN 787.91 DIARRHEA 11/10/2009 HERBERT SCHERER DOA K 784.0 headache 11/10/2009 UTE PUTNAM APRN R 784.0 headache 11/10/2009 TRE SULTANA APRN 784.0 headache 12/16/2009 HERBERT SCHERER DOA K 462 PHARYNGITIS ACUTE 12/16/2009 UTE PUTNAM APRN R 462 PHARYNGITIS ACUTE 12/16/2009 TRE SULTANA APRN 462 PHARYNGITIS ACUTE 01/10/2010 Ot V12.51 01/10/2010 Ot V58.61 01/10/2010 Ot V58.83 04/18/2010 Ot V12.51 04/18/2010 Ot V58.61 04/18/2010 Ot V58.83 05/10/2010 HERBERT SCHERER DOA K 401.1 HYPERTENSION, BENIGN ESSENTIAL 05/10/2010 UTE PUTNAM APRN R 401.1 HYPERTENSION, BENIGN ESSENTIAL 05/10/2010 TRE SULTANA APRN 401.1 HYPERTENSION, BENIGN ESSENTIAL 05/16/2010 HERBERT SCHERER DOA K 272.2 HYPERLIPIDEMIA, MIXED 05/16/2010 HERBERT SCHERER DOA K 786.2 COUGH 05/16/2010 UTE PUTNAM APRN R 272.2 HYPERLIPIDEMIA, MIXED 05/16/2010 UTE PUTNAM APRN R 786.2 COUGH 05/16/2010 TRE SULTANA APRN 272.2 HYPERLIPIDEMIA, MIXED 05/16/2010 TRE SULTANA APRN 786.2 COUGH 07/19/2010 Ot V12.51 07/19/2010 Ot V58.61 07/19/2010 Ot V58.83 11/26/2010 Ot 786.2 COUGH 02/13/2011 Ot V12.51 HX-VENOUS THROMBOSIS EMBOLISM 02/13/2011 Ot V58.61 ANTICOAGULANTS,LT,CURRENT USE 02/13/2011 Ot V58.83 ENCOUNTER FOR THERAPEUTIC DRUG MONITORIN 04/06/2011 SCHERER DO, CALVIN K 724.2 BACK PAIN, LOWER 04/06/2011 UTE PUTNAM APRN R 724.2 BACK PAIN, LOWER 04/06/2011 TRE SULTANA APRN 724.2 BACK PAIN, LOWER 05/19/2011 Ot 724.2 LUMBAGO 05/19/2011 Ot V12.51 HX-VENOUS THROMBOSIS EMBOLISM 05/19/2011 Ot V58.61 ANTICOAGULANTS,LT,CURRENT USE 05/23/2011 Ot 034.0 STREP SORE THROAT 05/23/2011 Ot 780.60 FEVER, UNSPECIFIED 05/23/2011 Ot 787.03 VOMITING ALONE 06/18/2011 Ot V12.51 06/18/2011 Ot V58.61 06/18/2011 Ot V58.83 10/21/2011 Ot V12.51 HX-VENOUS THROMBOSIS EMBOLISM 10/21/2011 Ot V58.61 ANTICOAGULANTS,LT,CURRENT USE 10/21/2011 Ot V58.83 ENCOUNTER FOR THERAPEUTIC DRUG MONITORIN 02/29/2012 Ot V12.51 HX-VENOUS THROMBOSIS EMBOLISM 02/29/2012 Ot V58.61 ANTICOAGULANTS,LT,CURRENT USE 02/29/2012 Ot V58.83 ENCOUNTER FOR THERAPEUTIC DRUG MONITORIN 04/30/2012 Ot 784.7 EPISTAXIS 07/01/2012 Ot V12.51 HX-VENOUS THROMBOSIS EMBOLISM 07/01/2012 Ot V58.61 ANTICOAGULANTS,LT,CURRENT USE 07/01/2012 Ot V58.83 ENCOUNTER FOR THERAPEUTIC DRUG MONITORIN 07/31/2012 Ot 272.4 07/31/2012 Ot 305.1 07/31/2012 Ot 401.9 07/31/2012 Ot 410.31 07/31/2012 Ot 414.01 07/31/2012 Ot 428.0 07/31/2012 Ot 428.21 07/31/2012 Ot 530.81 07/31/2012 Ot V12.51 07/31/2012 Ot V12.55 07/31/2012 Ot V58.61 09/24/2012 Ot 272.4 HYPERLIPIDEMIA NEC/NOS 09/24/2012 Ot 300.00 ANXIETY STATE NOS 09/24/2012 Ot 401.9 HYPERTENSION NOS 09/24/2012 Ot 412 OLD MYOCARDIAL INFARCT 09/24/2012 Ot 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[place] CORON 09/24/2012 Ot 786.50 CHEST PAIN NOS 09/24/2012 Ot V12.51 HX-VENOUS THROMBOSIS EMBOLISM 09/24/2012 Ot V15.81 HX OF PAST NONCOMPLIANCE 09/24/2012 Ot V45.82 PERCUTANEOUS TRANSLUM CORON ANGIOPLASTY 09/24/2012 Ot V58.61 ANTICOAGULANTS,LT,CURRENT USE 09/24/2012 Ot V58.63 LONG-TERM( CURRENT)USE OF ANTIPLATELET/AN 09/24/2012 Ot V58.66 LONG-TERM ( CURRENT) USE OF ASPIRIN 09/24/2012 Ot V58.69 OTH MED,LT, CURRENT USE 11/02/2012 Ot V12.51 HX-VENOUS THROMBOSIS EMBOLISM 11/02/2012 Ot V58.61 ANTICOAGULANTS,LT,CURRENT USE 11/02/2012 Ot V58.83 ENCOUNTER FOR THERAPEUTIC DRUG MONITORIN 11/25/2012 CALVIN SCHERER DO 461.9 SINUSITIS ACUTE 11/25/2012 UTE PUTNAM APRN 461.9 SINUSITIS ACUTE 11/25/2012 TRE SULTANA APRN 461.9 SINUSITIS ACUTE 12/03/2012 Ot 719.47 JOINT PAIN- ANKLE 12/03/2012 Ot 728.71 PLANTAR FIBROMATOSIS 01/09/2013 YVETTE ENRIQUE, MENDOZA Gruber Ot 719.47 JOINT PAIN-ANKLE 01/09/2013 YVETTE ENRIQUE, MENDOZA Gruber Ot 845.00 SPRAIN OF ANKLE NOS 01/09/2013 YVETTE ENRIQUE, MENDOZA Gruber Ot E000.8 OTHER EXTERNAL CAUSE STATUS 01/09/2013 YVETTE ENRIQUE, MENDOZA Gruber Ot E849.0 ACCIDENT IN HOME 01/09/2013 YVETTE ENRIQUE, MENDOZA Gruber Ot E888.9 FALL NOS 02/09/2013 Ot V12.51 HX-VENOUS THROMBOSIS EMBOLISM 02/09/2013 Ot V58.61 ANTICOAGULANTS,LT,CURRENT USE 02/09/2013 Ot V58.83 ENCOUNTER FOR THERAPEUTIC DRUG MONITORIN 07/08/2013 JEFFERY DE SOUZA MD Ot V12.51 HX-VENOUS THROMBOSIS EMBOLISM 07/08/2013 JEFFERY DE SOUZA MD Ot V58.61 ANTICOAGULANTS,LT,CURRENT USE 07/08/2013 JEFFERY DE SOUZA MD Ot V58.83 ENCOUNTER FOR THERAPEUTIC DRUG MONITORIN 12/20/2013 JEFFERY DE SOUZA MD Ot V12.51 HX-VENOUS THROMBOSIS EMBOLISM 12/20/2013 JEFFERY DE SOUZA MD Ot V58.61 ANTICOAGULANTS,LT,CURRENT USE 12/20/2013 JEFFERY DE SOUZA MD Ot V58.83 ENCOUNTER FOR THERAPEUTIC DRUG MONITORIN 01/30/2014 UTE PUTNAM APRN R 462 ACUTE PHARYNGITIS 01/30/2014 UTE PUTNAM APRN R 786.2 COUGH 01/30/2014 TRE SULTANA APRN 462 ACUTE PHARYNGITIS 01/30/2014 TRE SULTANA APRN 786.2 COUGH 2014 JEFFERY DE SOUZA MD Ot V12.51 HX-VENOUS THROMBOSIS EMBOLISM 2014 JEFFERY DE SOUZA MD Ot V58.61 ANTICOAGULANTS,LT,CURRENT USE 2014 JEFFERY DE SOUZA MD Ot V58.83 ENCOUNTER FOR THERAPEUTIC DRUG MONITORIN 10/31/2014 Ot 274.01 ACUTE GOUTY ARTHROPATHY 10/31/2014 Ot 729.5 PAIN IN LIMB 10/31/2014 Ot V58.61 ANTICOAGULANTS,LT,CURRENT USE 10/31/2014 Ot V58.63 LONG-TERM( CURRENT)USE OF ANTIPLATELET/AN 11/03/2014 TRE SULTANA APRN 274.02 CHRONIC GOUTY ARTHROPATHY WITHOUT MENTION OF TOPHUS (TOPHI) 11/03/2014 TRE SULTANA APRN 719.47 PAIN IN JOINT INVOLVING ANKLE AND FOOT 11/19/2014 TRE SULTANA APRN 305.1 TOBACCO ABUSE 11/19/2014 TRE SULTANA APRN 414.00 CAD 11/19/2014 TRE SULTANA APRN 716.90 ARTHRITIS/ ARTHROPATHY, UNSPECIFIED 11/19/2014 TRE SULTANA APRN V65.42 TOBACCO COUNSELING 11/25/2014 Ot 272.1 11/25/2014 Ot 414.00 11/25/2014 Ot 786.50 11/25/2014 Ot 397.0 11/25/2014 Ot 414.00 11/25/2014 Ot 424.0 11/25/2014 Ot 786.50 11/25/2014 Ot 272.4 11/25/2014 Ot 401.9 11/25/2014 Ot 414.01 11/25/2014 Ot 401.9 11/25/2014 Ot 414.01 11/25/2014 Ot 428.0 11/25/2014 Ot 719.40 11/25/2014 Ot 782.3 11/25/2014 Ot V58.61 11/25/2014 JEFFERY DE SOUZA MD Ot V12.51 11/25/2014 JEFFERY DE SOUZA MD Ot V58.61 11/25/2014 JEFFERY DE SOUZA MD Ot V58.83 11/25/2014 Ot 272.4 11/25/2014 Ot 401.9 11/25/2014 Ot 414.01 11/25/2014 Ot 401.9 11/25/2014 Ot 414.01 11/25/2014 Ot 428.0 11/25/2014 Ot 719.40 11/25/2014 Ot 782.3 11/25/2014 Ot V58.61 11/25/2014 JEFFERY DE SOUZA MD Ot V12.51 11/25/2014 JEFFERY DE SOUZA MD Ot V58.61 11/25/2014 JEFFERY DE SOUZA MD Ot V58.83 01/25/2015 JEFFERY DE SOUZA MD Ot V12.51 HX-VENOUS THROMBOSIS EMBOLISM 01/25/2015 JEFFERY DE SOUZA MD Ot V58.61 ANTICOAGULANTS,LT,CURRENT USE 01/25/2015 JEFFERY DE SOUZA MD Ot V58.83 ENCOUNTER FOR THERAPEUTIC DRUG MONITORIN 03/17/2015 Ot 272.1 03/17/2015 Ot 414.00 03/17/2015 Ot 786.50 03/17/2015 Ot 397.0 03/17/2015 Ot 414.00 03/17/2015 Ot 424.0 03/17/2015 Ot 786.50 03/17/2015 Ot 272.4 03/17/2015 Ot 401.9 03/17/2015 Ot 414.01 03/17/2015 Ot 401.9 03/17/2015 Ot 414.01 03/17/2015 Ot 428.0 03/17/2015 Ot 719.40 03/17/2015 Ot 782.3 03/17/2015 Ot V58.61 03/17/2015 JEFFERY DE SOUZA MD Ot V12.51 03/17/2015 NOLVIA ENRIQUE, JEFFERY Gutierrez Ot V58.61 03/17/2015 NOLVIA ENRIQUE, JEFFERY Gutierrez Ot V58.83 03/17/2015 Ot 272.4 03/17/2015 Ot 401.9 03/17/2015 Ot 414.01 03/17/2015 Ot 272.4 03/17/2015 Ot 401.9 03/17/2015 Ot 414.01 03/17/2015 Ot 401.9 03/17/2015 Ot 414.01 03/17/2015 Ot 428.0 03/17/2015 Ot 719.40 03/17/2015 Ot 782.3 03/17/2015 Ot V58.61 04/01/2015 Ot 272.1 04/01/2015 Ot 414.00 04/01/2015 Ot 786.50 04/01/2015 Ot 397.0 04/01/2015 Ot 414.00 04/01/2015 Ot 424.0 04/01/2015 Ot 786.50 04/01/2015 Ot 272.4 04/01/2015 Ot 401.9 04/01/2015 Ot 414.01 04/01/2015 Ot 401.9 04/01/2015 Ot 414.01 04/01/2015 Ot 428.0 04/01/2015 Ot 719.40 04/01/2015 Ot 782.3 04/01/2015 Ot V58.61 04/01/2015 JEFFERY DE SOUZA MD Ot V12.51 04/01/2015 JEFFERY DE SOUZA MD Ot V58.61 04/01/2015 JEFFERY DE SOUZA MD Ot V58.83 04/01/2015 JOHN MONDRAGON MD Ot 274.9 GOUT NOS 04/01/2015 JOHN MONDRAGON MD Ot 729.5 PAIN IN LIMB 04/01/2015 Ot 272.1 04/01/2015 Ot 414.00 04/01/2015 Ot 786.50 04/01/2015 Ot 397.0 04/01/2015 Ot 414.00 04/01/2015 Ot 424.0 04/01/2015 Ot 786.50 04/01/2015 Ot 272.4 04/01/2015 Ot 401.9 04/01/2015 Ot 414.01 04/01/2015 Ot 401.9 04/01/2015 Ot 414.01 04/01/2015 Ot 428.0 04/01/2015 Ot 719.40 04/01/2015 Ot 782.3 04/01/2015 Ot V58.61 04/01/2015 JEFFERY DE SOUZA MD Ot V12.51 04/01/2015 JEFFERY DE SOUZA MD Ot V58.61 04/01/2015 JEFFERY DE SOUZA MD Ot V58.83 04/04/2015 JEFFERY DE SOUZA MD Ot V12.51 04/04/2015 JEFFERY DE SOUZA MD Ot V58.61 04/04/2015 JEFFERY DE SOUZA MD Ot V58.83 04/06/2015 JEFFERY DE SOUZA MD Ot V12.51 04/06/2015 JEFFERY DE SOUZA MD Ot V58.61 04/06/2015 JEFFERY DE SOUZA MD Ot V58.83 05/25/2015 JEFFERY DE SOUZA MD Ot V12.51 HX-VENOUS THROMBOSIS EMBOLISM 05/25/2015 JEFFERY DE SOUZA MD Ot V58.61 ANTICOAGULANTS,LT,CURRENT USE 05/25/2015 JEFFERY DE SOUZA MD Ot V58.83 ENCOUNTER FOR THERAPEUTIC DRUG MONITORIN 07/06/2015 Ot 270.4 07/06/2015 Ot 305.1 07/06/2015 Ot 536.8 07/06/2015 Ot 729.81 07/06/2015 Ot V12.51 07/06/2015 Ot V58.61 07/06/2015 Ot V58.69 07/06/2015 Ot 270.4 07/06/2015 Ot 305.1 07/06/2015 Ot 536.8 07/06/2015 Ot V12.51 07/06/2015 Ot V58.61 07/06/2015 Ot V58.69 07/06/2015 Ot 272.4 07/06/2015 Ot 729.5 07/06/2015 Ot 780.79 07/06/2015 Ot 270.4 07/06/2015 Ot 305.1 07/06/2015 Ot 536.8 07/06/2015 Ot 729.5 07/06/2015 Ot V12.51 07/06/2015 Ot V58.69 07/06/2015 Ot 270.4 07/06/2015 Ot 305.1 07/06/2015 Ot 536.8 07/06/2015 Ot V12.51 07/06/2015 Ot V58.69 07/06/2015 Ot 786.09 07/06/2015 Ot 786.50 07/06/2015 Ot 786.09 07/06/2015 Ot 786.50 07/06/2015 Ot 270.4 07/06/2015 Ot 305.1 07/06/2015 Ot 533.90 07/06/2015 Ot V12.51 07/06/2015 Ot 272.4 07/06/2015 Ot 401.9 07/06/2015 Ot 414.00 07/06/2015 Ot 272.4 07/06/2015 Ot 356.9 07/06/2015 Ot 272.4 07/06/2015 Ot 729.5 07/06/2015 Ot V58.61 07/06/2015 Ot 272.1 07/06/2015 Ot 414.00 07/06/2015 Ot 786.50 07/06/2015 Ot 397.0 07/06/2015 Ot 414.00 07/06/2015 Ot 424.0 07/06/2015 Ot 786.50 07/06/2015 Ot 272.4 07/06/2015 Ot 401.9 07/06/2015 Ot 414.01 07/06/2015 Ot 401.9 07/06/2015 Ot 414.01 07/06/2015 Ot 428.0 07/06/2015 Ot 719.40 07/06/2015 Ot 782.3 07/06/2015 Ot V58.61 07/06/2015 Ot 272.1 07/06/2015 Ot 414.00 07/06/2015 Ot 786.50 07/06/2015 Ot 397.0 07/06/2015 Ot 414.00 07/06/2015 Ot 424.0 07/06/2015 Ot 786.50 07/06/2015 Ot 272.4 07/06/2015 Ot 401.9 07/06/2015 Ot 414.01 07/06/2015 Ot 401.9 07/06/2015 Ot 414.01 07/06/2015 Ot 428.0 07/06/2015 Ot 719.40 07/06/2015 Ot 782.3 07/06/2015 Ot V58.61 01/22/2016 Ot 414.00 CORON ATHEROSCLER NOS TYPE VESSEL, NATIV 01/22/2016 Ot 786.50 CHEST PAIN NOS 01/22/2016 Ot 397.0 TRICUSPID VALVE DISEASE 01/22/2016 Ot 414.00 CORON ATHEROSCLER NOS TYPE VESSEL, NATIV 01/22/2016 Ot 424.0 MITRAL VALVE DISORDER 01/22/2016 Ot 786.50 CHEST PAIN NOS 01/22/2016 Ot 272.4 HYPERLIPIDEMIA NEC/NOS 01/22/2016 Ot 401.9 HYPERTENSION NOS 01/22/2016 Ot 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[place] CORON 01/22/2016 Ot 401.9 HYPERTENSION NOS 01/22/2016 Ot 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[place] CORON 01/22/2016 Ot 428.0 CONGESTIVE HEART FAILURE NOS 01/22/2016 Ot 719.40 JOINT PAIN- UNSPEC 01/22/2016 Ot 782.3 EDEMA 01/22/2016 Ot V58.61 ANTICOAGULANTS,LT,CURRENT USE 01/22/2016 VIANEY SWEET [employer]MA[employer] PRODUCTION CONSULTANT Ot F17.210 NICOTINE DEPENDENCE, CIGARETTES, UNCOMPL 01/22/2016 VIANEY SWEET EMA[employer] PRODUCTION CONSULTANT Ot M25.511 PAIN IN RIGHT SHOULDER 02/24/2016 JEFFERY DE SOUZA MD Ot I82.403 ACUTE EMBOLISM AND THOMBOS UNSP DEEP VEI 02/24/2016 JEFFERY DE SOUZA MD Ot Z79.01 RETAIL COVERAGE [employer] LEAD (CURRENT) USE OF ANTICOAGULANT 04/09/2016 JEFFERY DE SOUZA MD Ot I82.403 ACUTE EMBOLISM AND THOMBOS UNSP DEEP VEI 04/09/2016 JEFFERY DE SOUZA MD Ot Z79.01 USP (CURRENT) USE OF ANTICOAGULANT 05/22/2016 JEFFERY DE SOUZA MD Ot I82.403 ACUTE EMBOLISM AND THOMBOS UNSP DEEP VEI 05/22/2016 JEFFERY DE SOUZA MD Ot Z79.01 USP (CURRENT) USE OF ANTICOAGULANT 06/01/2016 Ot 414.00 CORON ATHEROSCLER NOS TYPE VESSEL, NATIV 06/01/2016 Ot 786.50 CHEST PAIN NOS 06/01/2016 Ot 397.0 TRICUSPID VALVE DISEASE 06/01/2016 Ot 414.00 CORON ATHEROSCLER NOS TYPE VESSEL, NATIV 06/01/2016 Ot 424.0 MITRAL VALVE DISORDER 06/01/2016 Ot 786.50 CHEST PAIN NOS 06/01/2016 Ot 272.4 HYPERLIPIDEMIA NEC/NOS 06/01/2016 Ot 401.9 HYPERTENSION NOS 06/01/2016 Ot 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[place] CORON 06/01/2016 Ot 401.9 HYPERTENSION NOS 06/01/2016 Ot 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[place] CORON 06/01/2016 Ot 428.0 CONGESTIVE HEART FAILURE NOS 06/01/2016 Ot 719.40 JOINT PAIN- UNSPEC 06/01/2016 Ot 782.3 EDEMA 06/01/2016 Ot V58.61 ANTICOAGULANTS,LT,CURRENT USE 06/04/2016 JEFFERY DE SOUZA MD Ot I82.403 ACUTE EMBOLISM AND THOMBOS UNSP DEEP VEI 06/04/2016 JEFFERY DE SOUZA MD Ot Z79.01 USP (CURRENT) USE OF ANTICOAGULANT 07/16/2016 JEFFERY DE SOUZA MD Ot I82.403 ACUTE EMBOLISM AND THOMBOS UNSP DEEP VEI 07/16/2016 JEFFERY DE SOUZA MD Ot Z79.01 USP (CURRENT) USE OF ANTICOAGULANT 07/26/2016 Ot 414.00 CORON ATHEROSCLER NOS TYPE VESSEL, NATIV 07/26/2016 Ot 786.50 CHEST PAIN NOS 07/26/2016 Ot 397.0 TRICUSPID VALVE DISEASE 07/26/2016 Ot 414.00 CORON ATHEROSCLER NOS TYPE VESSEL, NATIV 07/26/2016 Ot 424.0 MITRAL VALVE DISORDER 07/26/2016 Ot 786.50 CHEST PAIN NOS 07/26/2016 Ot 272.4 HYPERLIPIDEMIA NEC/NOS 07/26/2016 Ot 401.9 HYPERTENSION NOS 07/26/2016 Ot 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[place] CORON 07/26/2016 Ot 401.9 HYPERTENSION NOS 07/26/2016 Ot 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[place] CORON 07/26/2016 Ot 428.0 CONGESTIVE HEART FAILURE NOS 07/26/2016 Ot 719.40 JOINT PAIN- UNSPEC 07/26/2016 Ot 782.3 EDEMA 07/26/2016 Ot V58.61 ANTICOAGULANTS,LT,CURRENT USE 07/26/2016 JEFFERY DE SOUZA MD Ot I82.403 ACUTE EMBOLISM AND THOMBOS UNSP DEEP VEI 07/26/2016 JEFFERY DE SOUZA MD Ot Z79.01 [employer] LE[employer] (CURRENT) USE OF ANTICOAGULANT 07/27/2016 JEFFERY DE SOUZA MD Ot I11.0 HYPERTENSIVE HEART DISEASE WITH HEART FA 07/27/2016 JEFFERY DE SOUZA MD Ot I25.10 ATHSCL HEART DISEASE OF [place] CORONARY 07/27/2016 JEFFERY DE SOUZA MD Ot I26.99 OTHER PULMONARY EMBOLISM WITHOUT ACUTE C 07/27/2016 JEFFERY DE SOUZA MD Ot I50.9 HEART FAILURE, UNSPECIFIED 07/27/2016 JEFFERY DE SOUZA MD Ot I82.409 ACUTE EMBOLISM AND THOMBOS UNSP DEEP VN 07/27/2016 JEFFERY DE SOUZA MD Ot R07.9 CHEST PAIN, UNSPECIFIED 08/06/2016 Ot 414.00 CORON ATHEROSCLER NOS TYPE VESSEL, NATIV 08/06/2016 Ot 786.50 CHEST PAIN NOS 08/06/2016 Ot 397.0 TRICUSPID VALVE DISEASE 08/06/2016 Ot 414.00 CORON ATHEROSCLER NOS TYPE VESSEL, NATIV 08/06/2016 Ot 424.0 MITRAL VALVE DISORDER 08/06/2016 Ot 786.50 CHEST PAIN NOS 08/06/2016 Ot 272.4 HYPERLIPIDEMIA NEC/NOS 08/06/2016 Ot 401.9 HYPERTENSION NOS 08/06/2016 Ot 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[place] CORON 08/06/2016 Ot 401.9 HYPERTENSION NOS 08/06/2016 Ot 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[place] CORON 08/06/2016 Ot 428.0 CONGESTIVE HEART FAILURE NOS 08/06/2016 Ot 719.40 JOINT PAIN- UNSPEC 08/06/2016 Ot 782.3 EDEMA 08/06/2016 Ot V58.61 ANTICOAGULANTS,LT,CURRENT USE 08/06/2016 JEFFERY DE SOUZA MD Ot I82.403 ACUTE EMBOLISM AND THOMBOS UNSP DEEP VEI 08/06/2016 JEFFERY DE SOUZA MD Ot Z79.01 RETAIL COVERAGE [employer] LEAD (CURRENT) USE OF ANTICOAGULANT 08/06/2016 JEFFERY DE SOUZA MD Ot I11.0 HYPERTENSIVE HEART DISEASE WITH HEART FA 08/06/2016 JEFFERY DE SOUZA MD Ot I25.10 ATHSCL HEART DISEASE OF [place] CORONARY 08/06/2016 JEFFERY DE SOUZA MD Ot I26.99 OTHER PULMONARY EMBOLISM WITHOUT ACUTE C 08/06/2016 JEFFERY DE SOUZA MD Ot I50.9 HEART FAILURE, UNSPECIFIED 08/06/2016 JEFFERY DE SOUZA MD Ot I82.409 ACUTE EMBOLISM AND THOMBOS UNSP DEEP VN 08/06/2016 JEFFERY DE SOUZA MD Ot R07.9 CHEST PAIN, UNSPECIFIED 08/07/2016 JEFFERY DE SOUZA MD Ot I25.10 ATHSCL HEART DISEASE OF [place] CORONARY 08/07/2016 JEFFERY DE SOUZA MD Ot I50.9 HEART FAILURE, UNSPECIFIED 08/07/2016 JEFFERY DE SOUZA MD Ot R07.9 CHEST PAIN, UNSPECIFIED 08/07/2016 JEFFERY DE SOUZA MD Ot I25.10 ATHSCL HEART DISEASE OF [place] CORONARY 08/07/2016 JEFFERY DE SOUZA MD Ot I50.9 HEART FAILURE, UNSPECIFIED 08/07/2016 JEFFERY DE SOUZA MD Ot R07.9 CHEST PAIN, UNSPECIFIED 08/08/2016 Ot 414.00 CORON ATHEROSCLER NOS TYPE VESSEL, NATIV 08/08/2016 Ot 786.50 CHEST PAIN NOS 08/08/2016 Ot 397.0 TRICUSPID VALVE DISEASE 08/08/2016 Ot 414.00 CORON ATHEROSCLER NOS TYPE VESSEL, NATIV 08/08/2016 Ot 424.0 MITRAL VALVE DISORDER 08/08/2016 Ot 786.50 CHEST PAIN NOS 08/08/2016 Ot 272.4 HYPERLIPIDEMIA NEC/NOS 08/08/2016 Ot 401.9 HYPERTENSION NOS 08/08/2016 Ot 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[place] CORON 08/08/2016 Ot 401.9 HYPERTENSION NOS 08/08/2016 Ot 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[place] CORON 08/08/2016 Ot 428.0 CONGESTIVE HEART FAILURE NOS 08/08/2016 Ot 719.40 JOINT PAIN- UNSPEC 08/08/2016 Ot 782.3 EDEMA 08/08/2016 Ot V58.61 ANTICOAGULANTS,LT,CURRENT USE 08/08/2016 JEFFERY DE SOUZA MD Ot I82.403 ACUTE EMBOLISM AND THOMBOS UNSP DEEP VEI 08/08/2016 JEFFERY DE SOUZA MD Ot Z79.01 USP (CURRENT) USE OF ANTICOAGULANT 08/08/2016 JEFFERY DE SOUZA MD Ot I11.0 HYPERTENSIVE HEART DISEASE WITH HEART FA 08/08/2016 JEFFERY DE SOUZA MD Ot I25.10 ATHSCL HEART DISEASE OF [place] CORONARY 08/08/2016 JEFFERY DE SOUZA MD Ot I26.99 OTHER PULMONARY EMBOLISM WITHOUT ACUTE C 08/08/2016 JEFFERY DE SOUZA MD Ot I50.9 HEART FAILURE, UNSPECIFIED 08/08/2016 JEFFERY DE SOUZA MD Ot I82.409 ACUTE EMBOLISM AND THOMBOS UNSP DEEP VN 08/08/2016 JEFFERY DE SOUZA MD Ot R07.9 CHEST PAIN, UNSPECIFIED 08/08/2016 JEFFERY DE SOUZA MD Ot I25.10 ATHSCL HEART DISEASE OF [place] CORONARY 08/08/2016 JEFFERY DE SOUZA MD Ot I50.9 HEART FAILURE, UNSPECIFIED 08/08/2016 JEFFERY DE SOUZA MD Ot R07.9 CHEST PAIN, UNSPECIFIED 08/08/2016 JEFFERY DE SOUZA MD Ot I11.0 HYPERTENSIVE HEART DISEASE WITH HEART FA 08/08/2016 JEFFERY DE SOUZA MD Ot I25.10 ATHSCL HEART DISEASE OF [place] CORONARY 08/08/2016 JEFFERY DE SOUZA MD Ot I26.99 OTHER PULMONARY EMBOLISM WITHOUT ACUTE C 08/08/2016 JEFFERY DE SOUZA MD Ot I50.9 HEART FAILURE, UNSPECIFIED 08/08/2016 JEFFERY DE SOUZA MD Ot I82.409 ACUTE EMBOLISM AND THOMBOS UNSP DEEP VN 08/08/2016 JEFFERY DE SOUZA MD Ot R07.9 CHEST PAIN, UNSPECIFIED 08/08/2016 JEFFERY DE SOUZA MD Ot E78.5 HYPERLIPIDEMIA, UNSPECIFIED 08/08/2016 JEFFERY DE SOUZA MD Ot F17.210 NICOTINE DEPENDENCE, CIGARETTES, UNCOMPL 08/08/2016 JEFFERY DE SOUZA MD Ot I10 ESSENTIAL (PRIMARY) HYPERTENSION 08/08/2016 JEFFERY DE SOUZA MD Ot I25.10 ATHSCL HEART DISEASE OF [place] CORONARY 08/08/2016 JEFFERY DE SOUZA MD Ot R07.89 OTHER CHEST PAIN 08/08/2016 JEFFERY DE SOUZA MD Ot R94.39 ABNORMAL RESULT OF OTHER CARDIOVASCULAR 08/08/2016 JEFFERY DE SOUZA MD Ot Z79.01 USP (CURRENT) USE OF ANTICOAGULANT 08/08/2016 JEFFERY DE SOUZA MD Ot Z79.899 OTHER USP (CURRENT) DRUG THERAPY 08/08/2016 JEFFERY DE SOUZA MD Ot Z86.718 PERSONAL HISTORY OF OTHER VENOUS THROMBO 08/08/2016 JEFFERY DE SOUZA MD Ot Z95.5 PRESENCE OF CORONARY ANGIOPLASTY IMPLANT 08/12/2016 JEFFERY DE SOUZA MD Ot I25.10 ATHSCL HEART DISEASE OF [place] CORONARY 08/12/2016 JEFFERY DE SOUZA MD Ot I50.9 HEART FAILURE, UNSPECIFIED 08/12/2016 JEFFERY DE SOUZA MD Ot R07.9 CHEST PAIN, UNSPECIFIED 08/22/2016 JEFFERY DE SOUZA MD Ot I25.10 ATHSCL HEART DISEASE OF [place] CORONARY 08/22/2016 JEFFERY DE SOUZA MD Ot I50.9 HEART FAILURE, UNSPECIFIED 08/22/2016 JEFFERY DE SOUZA MD Ot R07.9 CHEST PAIN, UNSPECIFIED 08/30/2016 JEFFERY DE SOUZA MD Ot I82.403 ACUTE EMBOLISM AND THOMBOS UNSP DEEP VEI 08/30/2016 JEFFERY DE SOUZA MD Ot Z79.01 USP (CURRENT) USE OF ANTICOAGULANT 08/31/2016 JEFFERY DE SOUZA MD Ot I82.403 ACUTE EMBOLISM AND THOMBOS UNSP DEEP VEI 08/31/2016 JEFFERY DE SOUZA MD Ot Z79.01 [employer] (CURRENT) USE OF ANTICOAGULANT 09/13/2016 JEFFERY DE SOUZA MD Ot I82.403 ACUTE EMBOLISM AND THOMBOS UNSP DEEP VEI 09/13/2016 JEFFERY DE SOUZA MD Ot Z79.01 USP (CURRENT) USE OF ANTICOAGULANT 09/13/2016 JEFFERY DE SOUZA MD Ot I82.403 ACUTE EMBOLISM AND THOMBOS UNSP DEEP VEI 09/13/2016 JEFFERY DE SOUZA MD Ot Z79.01 [employer] (CURRENT) USE OF ANTICOAGULANT 09/14/2016 JEFFERY DE SOUZA MD Ot I82.403 ACUTE EMBOLISM AND THOMBOS UNSP DEEP VEI 09/14/2016 JEFFERY DE SOUZA MD Ot Z79.01 [employer] (CURRENT) USE OF ANTICOAGULANT 10/10/2016 JEFFERY DE SOUZA MD Ot I82.403 ACUTE EMBOLISM AND THOMBOS UNSP DEEP VEI 10/10/2016 JEFFERY DE SOUZA MD Ot Z79.01 USP (CURRENT) USE OF ANTICOAGULANT 11/09/2016 JEFFERY DE SOUZA MD Ot I82.403 ACUTE EMBOLISM AND THOMBOS UNSP DEEP VEI 11/09/2016 JEFFERY DE SOUZA MD Ot Z79.01 USP (CURRENT) USE OF ANTICOAGULANT 12/11/2016 JEFFERY DE SOUZA MD Ot I82.403 ACUTE EMBOLISM AND THOMBOS UNSP DEEP VEI 12/11/2016 JEFFERY DE SOUZA MD Ot Z79.01 USP (CURRENT) USE OF ANTICOAGULANT 12/12/2016 JEFFERY DE SOUZA MD Ot I82.403 ACUTE EMBOLISM AND THOMBOS UNSP DEEP VEI 12/12/2016 JEFFERY DE SOUZA MD Ot Z79.01 USP (CURRENT) USE OF ANTICOAGULANT 01/09/2017 Ot 414.00 CORON ATHEROSCLER NOS TYPE VESSEL, NATIV 01/09/2017 Ot 786.50 CHEST PAIN NOS 01/09/2017 Ot 397.0 TRICUSPID VALVE DISEASE 01/09/2017 Ot 414.00 CORON ATHEROSCLER NOS TYPE VESSEL, NATIV 01/09/2017 Ot 424.0 MITRAL VALVE DISORDER 01/09/2017 Ot 786.50 CHEST PAIN NOS 01/09/2017 Ot 272.4 HYPERLIPIDEMIA NEC/NOS 01/09/2017 Ot 401.9 HYPERTENSION NOS 01/09/2017 Ot 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[place] CORON 01/09/2017 Ot 401.9 HYPERTENSION NOS 01/09/2017 Ot 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[place] CORON 01/09/2017 Ot 428.0 CONGESTIVE HEART FAILURE NOS 01/09/2017 Ot 719.40 JOINT PAIN- UNSPEC 01/09/2017 Ot 782.3 EDEMA 01/09/2017 Ot V58.61 ANTICOAGULANTS,LT,CURRENT USE 01/09/2017 JEFFERY DE SOUZA MD Ot I11.0 HYPERTENSIVE HEART DISEASE WITH HEART FA 01/09/2017 JEFFERY DE SOUZA MD Ot I25.10 ATHSCL HEART DISEASE OF [place] CORONARY 01/09/2017 JEFFERY DE SOUZA MD Ot I26.99 OTHER PULMONARY EMBOLISM WITHOUT ACUTE C 01/09/2017 JEFFERY DE SOUZA MD Ot I50.9 HEART FAILURE, UNSPECIFIED 01/09/2017 JEFFERY DE SOUZA MD Ot I82.409 ACUTE EMBOLISM AND THOMBOS UNSP DEEP VN 01/09/2017 JEFFERY DE SOUZA MD Ot R07.9 CHEST PAIN, UNSPECIFIED 01/09/2017 JEFFERY DE SOUZA MD Ot I25.10 ATHSCL HEART DISEASE OF [place] CORONARY 01/09/2017 JEFFERY DE SOUZA MD Ot I50.9 HEART FAILURE, UNSPECIFIED 01/09/2017 JEFFERY DE SOUZA MD Ot R07.9 CHEST PAIN, UNSPECIFIED 01/09/2017 ROCHELLE OLIVER Ot F17.210 NICOTINE DEPENDENCE, CIGARETTES, UNCOMPL 01/09/2017 MARK HAZEL ROCHELLE L Ot R10.10 UPPER ABDOMINAL PAIN, UNSPECIFIED 01/09/2017 ROCHELLE OLIVER Ot R10.13 EPIGASTRIC PAIN 01/09/2017 ROCHELLE OLIVER Ot Z79.01 [employer] LE[employer] (CURRENT) USE OF ANTICOAGULANT 01/09/2017 ROCHELLE OLIVER Ot Z79.82 USP (CURRENT) USE OF ASPIRIN 01/09/2017 ROCHELLE OLIVER Ot Z79.899 OTHER [employer] LE[employer] (CURRENT) DRUG THERAPY 01/09/2017 ROCHELLE OLIVER Ot Z95.5 PRESENCE OF CORONARY ANGIOPLASTY IMPLANT 01/11/2017 ROCHELLE OLIVER Ot F17.210 NICOTINE DEPENDENCE, CIGARETTES, UNCOMPL 01/11/2017 ROCHELLE OLIVER Ot R10.10 UPPER ABDOMINAL PAIN, UNSPECIFIED 01/11/2017 ROCHELLE OLIVER Ot R10.13 EPIGASTRIC PAIN 01/11/2017 ROCHELLE OLIVER Ot Z79.01 USP (CURRENT) USE OF ANTICOAGULANT 01/11/2017 ROCHELLE OLIVER Ot Z79.82 USP (CURRENT) USE OF ASPIRIN 01/11/2017 ROCHELLE OLIVER Ot Z79.899 OTHER [employer] LE[employer] (CURRENT) DRUG THERAPY 01/11/2017 ROCHELLE OLIVER Ot Z95.5 PRESENCE OF CORONARY ANGIOPLASTY IMPLANT 01/29/2017 NOLVIA ENRIQUE, JEFFERY Gutierrez Ot I82.403 ACUTE EMBOLISM AND THOMBOS UNSP DEEP VEI 01/29/2017 JEFFERY DE SOUZA MD Ot Z79.01 [employer] (CURRENT) USE OF ANTICOAGULANT 01/31/2017 Ot 414.00 CORON ATHEROSCLER NOS TYPE VESSEL, NATIV 01/31/2017 Ot 786.50 CHEST PAIN NOS 01/31/2017 Ot 397.0 TRICUSPID VALVE DISEASE 01/31/2017 Ot 414.00 CORON ATHEROSCLER NOS TYPE VESSEL, NATIV 01/31/2017 Ot 424.0 MITRAL VALVE DISORDER 01/31/2017 Ot 786.50 CHEST PAIN NOS 01/31/2017 Ot 272.4 HYPERLIPIDEMIA NEC/NOS 01/31/2017 Ot 401.9 HYPERTENSION NOS 01/31/2017 Ot 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[place] CORON 01/31/2017 Ot 401.9 HYPERTENSION NOS 01/31/2017 Ot 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[place] CORON 01/31/2017 Ot 428.0 CONGESTIVE HEART FAILURE NOS 01/31/2017 Ot 719.40 JOINT PAIN- UNSPEC 01/31/2017 Ot 782.3 EDEMA 01/31/2017 Ot V58.61 ANTICOAGULANTS,LT,CURRENT USE 01/31/2017 JEFFERY DE SOUZA MD Ot I11.0 HYPERTENSIVE HEART DISEASE WITH HEART FA 01/31/2017 JEFFERY DE SOUZA MD Ot I25.10 ATHSCL HEART DISEASE OF [place] CORONARY 01/31/2017 JEFFERY DE SOUZA MD Ot I26.99 OTHER PULMONARY EMBOLISM WITHOUT ACUTE C 01/31/2017 JEFFERY DE SOUZA MD Ot I50.9 HEART FAILURE, UNSPECIFIED 01/31/2017 JEFFERY DE SOUZA MD Ot R07.9 CHEST PAIN, UNSPECIFIED 01/31/2017 JEFFERY DE SOUZA MD Ot I25.10 ATHSCL HEART DISEASE OF [place] CORONARY 01/31/2017 JEFFERY DE SOUZA MD Ot I50.9 HEART FAILURE, UNSPECIFIED 01/31/2017 JEFFERY DE SOUZA MD Ot R07.9 CHEST PAIN, UNSPECIFIED 03/08/2017 JEFFERY DE SOUZA MD Ot I82.403 ACUTE EMBOLISM AND THOMBOS UNSP DEEP VEI 03/08/2017 JEFFERY DE SOUZA MD Ot Z79.01 USP (CURRENT) USE OF ANTICOAGULANT 04/02/2017 JEFFERY DE SOUZA MD Ot I82.403 ACUTE EMBOLISM AND THOMBOS UNSP DEEP VEI 04/02/2017 JEFFERY DE SOUZA MD Ot Z79.01 [employer] (CURRENT) USE OF ANTICOAGULANT 04/03/2017 JEFFERY DE SOUZA MD Ot I82.403 ACUTE EMBOLISM AND THOMBOS UNSP DEEP VEI 04/03/2017 JEFFERY DE SOUZA MD Ot Z79.01 [employer] (CURRENT) USE OF ANTICOAGULANT 04/10/2017 JEFFERY DE SOUZA MD Ot I26.99 OTHER PULMONARY EMBOLISM WITHOUT ACUTE C 04/10/2017 JEFFERY DE SOUZA MD Ot Z51.81 ENCOUNTER FOR THERAPEUTIC DRUG LEVEL MON 04/13/2017 ROCHELLE OLIVER Ot F17.200 NICOTINE DEPENDENCE, UNSPECIFIED, UNCOMP 04/13/2017 ROCHELLE OLIVER Ot I25.2 OLD MYOCARDIAL INFARCTION 04/13/2017 ROCHELLE OLIVER Ot K21.9 GASTRO-ESOPHAGEAL REFLUX DISEASE WITHOUT 04/13/2017 ROCHELLE OLIVER Ot L50.9 URTICARIA, UNSPECIFIED 04/13/2017 ROCHELLE OLIVER Ot M79.601 PAIN IN RIGHT ARM 04/13/2017 ROCHELLE OLIVER Ot Z79.01 [employer] (CURRENT) USE OF ANTICOAGULANT 04/13/2017 ROCHELLE OLIVER Ot Z79.82 [employer] (CURRENT) USE OF ASPIRIN 04/13/2017 ROCHELLE OLIVER Ot Z82.49 FAMILY HX OF ISCHEM HEART DIS AND OTH DI 04/13/2017 ROCHELLE OLIVER Ot Z95.5 PRESENCE OF CORONARY ANGIOPLASTY IMPLANT 04/30/2017 JEFFERY DE SOUZA MD Ot I26.99 OTHER PULMONARY EMBOLISM WITHOUT ACUTE C 04/30/2017 JEFFERY DE SOUZA MD Ot Z51.81 ENCOUNTER FOR THERAPEUTIC DRUG LEVEL Sat05/09/2017 JEFFERY DE SOUZA MD Ot I26.99 OTHER PULMONARY EMBOLISM WITHOUT ACUTE C 05/09/2017 JEFFERY DE SOUZA MD Ot Z51.81 ENCOUNTER FOR THERAPEUTIC DRUG LEVEL MON 05/10/2017 JEFFERY DE SOUZA MD Ot I26.99 OTHER PULMONARY EMBOLISM WITHOUT ACUTE C 05/10/2017 JEFFERY DE SOUZA MD Ot Z51.81 ENCOUNTER FOR THERAPEUTIC DRUG LEVEL Sat05/10/2017 JEFFERY DE SOUZA MD Ot Z79.899 OTHER [employer] (CURRENT) DRUG THERAPY 05/25/2017 JEFFERY DE SOUZA MD Ot I26.99 OTHER PULMONARY EMBOLISM WITHOUT ACUTE C 05/25/2017 JEFFERY DE SOUZA MD Ot Z51.81 ENCOUNTER FOR THERAPEUTIC DRUG LEVEL Sat05/25/2017 JEFFERY DE SOUZA MD Ot Z79.899 OTHER [employer] LE[employer] (CURRENT) DRUG THERAPY 05/31/2017 JEFFERY DE SOUZA MD Ot I26.99 OTHER PULMONARY EMBOLISM WITHOUT ACUTE C 05/31/2017 JEFFERY DE SOUZA MD Ot Z51.81 ENCOUNTER FOR THERAPEUTIC DRUG LEVEL Sat05/31/2017 JEFFERY DE SOUZA MD Ot Z79.899 OTHER [employer] LE[employer] (CURRENT) DRUG THERAPY 07/11/2017 SONIYA JAMES DO Ot D68.59 OTHER PRIMARY THROMBOPHILIA 07/11/2017 JAMES DO, SONIYA Ot E78.1 PURE HYPERGLYCERIDEMIA 07/11/2017 MAGALYS JAMES DOI Ot E78.5 HYPERLIPIDEMIA, UNSPECIFIED 07/11/2017 MAGALYS JAMES DOI Ot F17.210 NICOTINE DEPENDENCE, CIGARETTES, UNCOMPL 07/11/2017 ERIKA BECK SONIYA Ot I10 ESSENTIAL (PRIMARY) HYPERTENSION 07/11/2017 ERIKA BECK SONIYA Ot I21.4 NON-ST ELEVATION (NSTEMI) MYOCARDIAL INF 07/11/2017 MAGALYS JAMES DOI Ot I25.10 ATHSCL HEART DISEASE OF [place] CORONARY 07/11/2017 ERIKA BECK SONIYA Ot 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 07/11/2017 MAGALYS JAMES DOI Ot I50.20 UNSPECIFIED SYSTOLIC (CONGESTIVE) HEART 07/11/2017 ERIKA BECK SONIYA Ot K21.9 GASTRO-ESOPHAGEAL REFLUX DISEASE WITHOUT 07/11/2017 MAGALYS JAMES DOI Ot R06.2 WHEEZING 07/11/2017 MAGALYS JAMES DOI Ot Z79.01 [employer] (CURRENT) USE OF ANTICOAGULANT 07/11/2017 MAGALYS JAMES DOI Ot Z82.49 FAMILY HX OF ISCHEM HEART DIS AND OTH DI 07/11/2017 SONIYA JAMES DO Ot Z95.5 PRESENCE OF CORONARY ANGIOPLASTY IMPLANT 07/15/2017 SONIYA JAMES DO Ot D68.59 OTHER PRIMARY THROMBOPHILIA 07/15/2017 MAGALYS JAMES DOI Ot E78.1 PURE HYPERGLYCERIDEMIA 07/15/2017 MAGALYS JAMES DOI Ot E78.5 HYPERLIPIDEMIA, UNSPECIFIED 07/15/2017 MAGALYS JAMES DOI Ot F17.210 NICOTINE DEPENDENCE, CIGARETTES, UNCOMPL 07/15/2017 MAGALYS JAMES DOI Ot I10 ESSENTIAL (PRIMARY) HYPERTENSION 07/15/2017 ERIKA BECK SONIYA Ot I21.4 NON-ST ELEVATION (NSTEMI) MYOCARDIAL INF 07/15/2017 MAGALYS JAMES DOI Ot I25.10 ATHSCL HEART DISEASE OF [place] CORONARY 07/15/2017 ERIKA BECK SONIYA Ot 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 07/15/2017 ERIKA BECK SONIYA Ot I50.20 UNSPECIFIED SYSTOLIC (CONGESTIVE) HEART 07/15/2017 MAGALYS JAMES DOI Ot K21.9 GASTRO-ESOPHAGEAL REFLUX DISEASE WITHOUT 07/15/2017 SONIYA JAMES DO Ot R06.2 WHEEZING 07/15/2017 SONIYA JAMES DO Ot Z79.01 USP (CURRENT) USE OF ANTICOAGULANT 07/15/2017 SONIYA JAMES DO Ot Z82.49 FAMILY HX OF ISCHEM HEART DIS AND OTH DI 07/15/2017 SONIYA JAMES DO Ot Z95.5 PRESENCE OF CORONARY ANGIOPLASTY IMPLANT 07/17/2017 SONIYA JAMES DO Ot D68.59 OTHER PRIMARY THROMBOPHILIA 07/17/2017 SONIYA JAMES DO Ot E78.1 PURE HYPERGLYCERIDEMIA 07/17/2017 SONIYA JAMES DO Ot E78.5 HYPERLIPIDEMIA, UNSPECIFIED 07/17/2017 SONIYA JAMES DO Ot F17.210 NICOTINE DEPENDENCE, CIGARETTES, UNCOMPL 07/17/2017 SONIYA JAMES DO Ot I10 ESSENTIAL (PRIMARY) HYPERTENSION 07/17/2017 SONIYA JAMES DO Ot I21.4 NON-ST ELEVATION (NSTEMI) MYOCARDIAL INF 07/17/2017 SONIYA JAMES DO Ot I25.10 ATHSCL HEART DISEASE OF [place] CORONARY 07/17/2017 SONIYA JAMES DO Ot 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 07/17/2017 SONIYA JAMES DO Ot I50.20 UNSPECIFIED SYSTOLIC (CONGESTIVE) HEART 07/17/2017 SONIYA JAMES DO Ot K21.9 GASTRO-ESOPHAGEAL REFLUX DISEASE WITHOUT 07/17/2017 SONIYA JAMES DO Ot R06.2 WHEEZING 07/17/2017 SONIYA JAMES DO Ot Z79.01 [employer] (CURRENT) USE OF ANTICOAGULANT 07/17/2017 SONIYA JAMES DO Ot Z82.49 FAMILY HX OF ISCHEM HEART DIS AND OTH DI 07/17/2017 SONIYA JAMES DO Ot Z95.5 PRESENCE OF CORONARY ANGIOPLASTY IMPLANT 08/02/2017 Ot 414.00 CORON ATHEROSCLER NOS TYPE VESSEL, NATIV 08/02/2017 Ot 786.50 CHEST PAIN NOS 08/02/2017 Ot 397.0 TRICUSPID VALVE DISEASE 08/02/2017 Ot 414.00 CORON ATHEROSCLER NOS TYPE VESSEL, NATIV 08/02/2017 Ot 424.0 MITRAL VALVE DISORDER 08/02/2017 Ot 786.50 CHEST PAIN NOS 08/02/2017 Ot 272.4 HYPERLIPIDEMIA NEC/NOS 08/02/2017 Ot 401.9 HYPERTENSION NOS 08/02/2017 Ot 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[place] CORON 08/02/2017 Ot 401.9 HYPERTENSION NOS 08/02/2017 Ot 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[place] CORON 08/02/2017 Ot 428.0 CONGESTIVE HEART FAILURE NOS 08/02/2017 Ot 719.40 JOINT PAIN- UNSPEC 08/02/2017 Ot 782.3 EDEMA 08/02/2017 Ot V58.61 ANTICOAGULANTS,LT,CURRENT USE 08/02/2017 JEFFERY DE SOUZA MD Ot I11.0 HYPERTENSIVE HEART DISEASE WITH HEART FA 08/02/2017 JEFFERY DE SOUZA MD Ot I25.10 ATHSCL HEART DISEASE OF [place] CORONARY 08/02/2017 JEFFERY DE SOUZA MD Ot I26.99 OTHER PULMONARY EMBOLISM WITHOUT ACUTE C 08/02/2017 JEFFERY DE SOUZA MD Ot I50.9 HEART FAILURE, UNSPECIFIED 08/02/2017 JEFFERY DE SOUZA MD Ot R07.9 CHEST PAIN, UNSPECIFIED 08/02/2017 JEFFERY DE SOUZA MD Ot I25.10 ATHSCL HEART DISEASE OF [place] CORONARY 08/02/2017 JEFFERY DE SOUZA MD Ot I50.9 HEART FAILURE, UNSPECIFIED 08/02/2017 JEFFERY DE SOUZA MD Ot R07.9 CHEST PAIN, UNSPECIFIED 08/02/2017 JEFFERY DE SOUZA MD Ot I82.403 ACUTE EMBOLISM AND THOMBOS UNSP DEEP VEI 08/02/2017 JEFFERY DE SOUZA MD Ot Z79.01 [employer] LE[employer] (CURRENT) USE OF ANTICOAGULANT 08/02/2017 JEFFERY DE SOUZA MD Ot I26.99 OTHER PULMONARY EMBOLISM WITHOUT ACUTE C 08/02/2017 JEFFERY DE SOUZA MD Ot Z51.81 ENCOUNTER FOR THERAPEUTIC DRUG LEVEL MON 08/02/2017 JEFFERY DE SOUZA MD Ot I26.99 OTHER PULMONARY EMBOLISM WITHOUT ACUTE C 08/02/2017 JEFFERY DE SOUZA MD Ot Z51.81 ENCOUNTER FOR THERAPEUTIC DRUG LEVEL MON 08/02/2017 JEFFERY DE SOUZA MD Ot Z79.899 OTHER USP (CURRENT) DRUG THERAPY 08/02/2017 ROCHELLE OLIVER Ot E78.00 PURE HYPERCHOLESTEROLEMIA, UNSPECIFIED 08/02/2017 ROCHELLE OLIVER Ot I10 ESSENTIAL (PRIMARY) HYPERTENSION 08/02/2017 ROCHELLE OLIVER Ot I25.2 OLD MYOCARDIAL INFARCTION 08/02/2017 ROCHELLE OLIVER Ot K21.9 GASTRO-ESOPHAGEAL REFLUX DISEASE WITHOUT 08/02/2017 ROCHELLE OLIVER Ot R22.2 LOCALIZED SWELLING, MASS AND LUMP, TRUNK 08/02/2017 ROCHELLE OLIVER Ot S20.212A CONTUSION OF LEFT FRONT WALL OF THORAX, 08/02/2017 ROCHELLE OLIVER Ot X58.XXXA EXPOSURE TO OTHER SPECIFIED FACTORS, INI 08/02/2017 ROCHELLE OLIVER Ot Z79.01 [employer] (CURRENT) USE OF ANTICOAGULANT 08/02/2017 ROCHELLE OLIVER Ot Z79.82 [employer] (CURRENT) USE OF ASPIRIN 08/02/2017 ROCHELLE OLIVER Ot Z82.49 FAMILY HX OF ISCHEM HEART DIS AND OTH DI 08/02/2017 ROCHELLE OLIVER Ot Z95.5 PRESENCE OF CORONARY ANGIOPLASTY IMPLANT 08/06/2017 JEFFERY DE SOUZA MD Ot I26.99 OTHER PULMONARY EMBOLISM WITHOUT ACUTE C 08/06/2017 JEFFERY DE SOUZA MD Ot Z79.01 [employer] LE[employer] (CURRENT) USE OF ANTICOAGULANT 08/06/2017 JEFFERY DE SOUZA MD Ot I50.9 HEART FAILURE, UNSPECIFIED 08/09/2017 Ot 414.00 CORON ATHEROSCLER NOS TYPE VESSEL, NATIV 08/09/2017 Ot 786.50 CHEST PAIN NOS 08/09/2017 Ot 397.0 TRICUSPID VALVE DISEASE 08/09/2017 Ot 414.00 CORON ATHEROSCLER NOS TYPE VESSEL, NATIV 08/09/2017 Ot 424.0 MITRAL VALVE DISORDER 08/09/2017 Ot 786.50 CHEST PAIN NOS 08/09/2017 Ot 272.4 HYPERLIPIDEMIA NEC/NOS 08/09/2017 Ot 401.9 HYPERTENSION NOS 08/09/2017 Ot 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[place] CORON 08/09/2017 Ot 401.9 HYPERTENSION NOS 08/09/2017 Ot 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[place] CORON 08/09/2017 Ot 428.0 CONGESTIVE HEART FAILURE NOS 08/09/2017 Ot 719.40 JOINT PAIN- UNSPEC 08/09/2017 Ot 782.3 EDEMA 08/09/2017 Ot V58.61 ANTICOAGULANTS,LT,CURRENT USE 08/09/2017 JEFFERY DE SOUZA MD Ot I11.0 HYPERTENSIVE HEART DISEASE WITH HEART FA 08/09/2017 JEFFERY DE SOUZA MD Ot I25.10 ATHSCL HEART DISEASE OF [place] CORONARY 08/09/2017 JEFFERY DE SOUZA MD Ot I26.99 OTHER PULMONARY EMBOLISM WITHOUT ACUTE C 08/09/2017 JEFFERY DE SOUZA MD Ot I50.9 HEART FAILURE, UNSPECIFIED 08/09/2017 JEFFERY DE SOUZA MD Ot R07.9 CHEST PAIN, UNSPECIFIED 08/09/2017 JEFFERY DE SOUZA MD Ot I25.10 ATHSCL HEART DISEASE OF [place] CORONARY 08/09/2017 JEFFERY DE SOUZA MD Ot I50.9 HEART FAILURE, UNSPECIFIED 08/09/2017 JEFFERY DE SOUZA MD Ot R07.9 CHEST PAIN, UNSPECIFIED 08/09/2017 JEFFERY DE SOUZA MD Ot I82.403 ACUTE EMBOLISM AND THOMBOS UNSP DEEP VEI 08/09/2017 JEFFERY DE SOUZA MD Ot Z79.01 [employer] LE[employer] (CURRENT) USE OF ANTICOAGULANT 08/09/2017 JEFFERY DE SOUZA MD Ot I26.99 OTHER PULMONARY EMBOLISM WITHOUT ACUTE C 08/09/2017 JEFFERY DE SOUZA MD Ot Z51.81 ENCOUNTER FOR THERAPEUTIC DRUG LEVEL MON 08/09/2017 JEFFERY DE SOUZA MD Ot I26.99 OTHER PULMONARY EMBOLISM WITHOUT ACUTE C 08/09/2017 JEFFERY DE SOUZA MD Ot Z79.01 [employer] LE[employer] (CURRENT) USE OF ANTICOAGULANT 08/09/2017 JEFFERY DE SOUZA MD Ot I50.9 HEART FAILURE, UNSPECIFIED 08/14/2017 JEFFERY DE SOUZA MD Ot I26.99 OTHER PULMONARY EMBOLISM WITHOUT ACUTE C 08/14/2017 JEFFERY DE SOUZA MD Ot Z79.01 USP (CURRENT) USE OF ANTICOAGULANT 08/22/2017 FREDRICK MCCAULEY MD Ot I25.119 ATHSCL HEART DISEASE OF [place] COR ART W 08/22/2017 FREDRICK MCCAULEY MD Ot Z01.812 ENCOUNTER FOR PREPROCEDURAL LABORATORY E 08/24/2017 JEFFERY DE SOUZA MD Ot I26.99 OTHER PULMONARY EMBOLISM WITHOUT ACUTE C 08/24/2017 JEFFERY DE SOUZA MD Ot Z79.01 [employer] LE[employer] (CURRENT) USE OF ANTICOAGULANT 08/30/2017 JEFFERY DE SOUZA MD Ot I26.99 OTHER PULMONARY EMBOLISM WITHOUT ACUTE C 08/30/2017 JEFFERY DE SOUZA MD Ot Z79.01 [employer] LE[employer] (CURRENT) USE OF ANTICOAGULANT 09/02/2017 JEFFERY DE SOUZA MD, Ot I26.99 OTHER PULMONARY EMBOLISM WITHOUT ACUTE C 09/02/2017 JEFFERY DE SOUZA MD, Ot Z79.01 USP (CURRENT) USE OF ANTICOAGULANT 09/06/2017 JEFFERY DE SOUZA MD Ot I10 ESSENTIAL (PRIMARY) HYPERTENSION 09/06/2017 JEFFERY DE SOUZA MD Ot I25.10 ATHSCL HEART DISEASE OF [place] CORONARY 09/06/2017 JEFFERY DE SOUZA MD Ot R06.00 DYSPNEA, UNSPECIFIED 09/06/2017 JEFFERY DE SOUZA MD Ot R07.89 OTHER CHEST PAIN 09/12/2017 JEFFERY DE SOUZA MD, Ot I50.9 HEART FAILURE, UNSPECIFIED Procedures Code Description Performed By Performed On CARDIOLOG JEFFERY DE SOUZA 01/30/2014 [id number] DILATION OF 1 COR ART WITH DRUG-ELUT INT 07/12/2017 [id number] MEASURE OF CARDIAC SAMPL PRESSURE, L H 07/12/2017 [id number] FLUOROSCOPY OF MULT COR ART USING L OSM 07/12/2017 [id number] FLUOROSCOPY OF LEFT HEART USING LOW OSMO 07/12/2017 Results Test Result Range Complete urinalysis with reflex to culture - 08/08/16 10:52 Urine color determination YELLOW NRG Urine clarity determination CLEAR NRG Urine pH measurement by test strip 8 5-9 Specific gravity of urine by test strip 1.010 1.016- 1.022 Urine protein assay by test strip, semi-quantitative NEGATIVE NEGATIVE Urine glucose detection by automated test strip NEGATIVE NEGATIVE Erythrocytes detection in urine sediment by light microscopy NEGATIVE NEGATIVE Urine ketones detection by automated test strip NEGATIVE NEGATIVE Urine nitrite detection by test strip NEGATIVE NEGATIVE Urine total bilirubin detection by test strip NEGATIVE NEGATIVE Urine urobilinogen measurement by automated test strip (mass/volume) NORMAL NORMAL Urine leukocyte esterase detection by dipstick NEGATIVE NEGATIVE Automated urine sediment erythrocyte count by microscopy (number/high power field) NONE NRG Automated urine sediment leukocyte count by microscopy (number/high power field ) NONE NRG Bacteria detection in urine sediment by light microscopy NEGATIVE NRG Crystals detection in urine sediment by light microscopy NONE NRG Casts detection in urine sediment by light microscopy NONE NRG Mucus detection in urine sediment by light microscopy NEGATIVE NRG Complete urinalysis with reflex to culture NO NRG Automated blood complete blood count (hemogram) panel - 08/08/16 11:00 Blood leukocytes automated count (number/volume) 9.9 10*3/uL 4.3-11.0 Blood erythrocytes automated count (number/volume) 5.46 10*6/uL 4.35-5.85 Venous blood hemoglobin measurement (mass/volume) 15.7 g/dL 13.3-17.7 Blood hematocrit (volume fraction) 47 % 40-54 Automated erythrocyte mean corpuscular volume 86 [foz_us] 80-99 Automated erythrocyte mean corpuscular hemoglobin (mass per erythrocyte) 29 pg 25-34 Automated erythrocyte mean corpuscular hemoglobin concentration measurement ( mass/volume) 33 g/dL 32-36 Automated erythrocyte distribution width ratio 13.9 % 10.0-14.5 Automated blood platelet count (count/volume) 282 10*3/uL 130-400 Automated blood platelet mean volume measurement 9.0 [foz_us] 7.4-10.4 PT panel in platelet poor plasma by coagulation assay - 08/08/16 11:00 Prothrombin time (PT) in platelet poor plasma by coagulation assay 22.5 s 12.2-14.7 INR in platelet poor plasma or blood by coagulation assay 2.0 0.8-1.4 Activated partial thromboplastin time (aPTT) in platelet poor plasma bycoagulation assay - 08/08/16 11:00 Activated partial thromboplastin time (aPTT) in platelet poor plasma bycoagulation assay 45 s 24-35 Comprehensive metabolic panel - 08/08/16 11:00 Serum or plasma sodium measurement (moles/volume) 140 mmol/L 135-145 Serum or plasma potassium measurement (moles/volume) 4.1 mmol/L 3.6-5.0 Serum or plasma chloride measurement (moles/volume) 103 mmol/L 98-107 Carbon dioxide 27 mmol/L 21-32 Serum or plasma anion gap determination (moles/volume) 10 mmol/L 5-14 Serum or plasma urea nitrogen measurement (mass/volume) 9 mg/dL 7-18 Serum or plasma creatinine measurement (mass/volume) 0.79 mg/dL 0.60-1.30 Serum or plasma urea nitrogen/creatinine mass ratio 11 NRG Serum or plasma creatinine measurement with calculation of estimated glomerular filtration rate > NRG Serum or plasma glucose measurement (mass/volume) 96 mg/dL 70-105 Serum or plasma calcium measurement (mass/volume) 9.5 mg/dL 8.5-10.1 Serum or plasma total bilirubin measurement (mass/volume) 0.8 mg/dL 0.1-1.0 Serum or plasma alkaline phosphatase measurement (enzymatic activity/volume) 79 U/L 40-136 Serum or plasma aspartate aminotransferase measurement (enzymatic activity/ volume) 26 U/L 5-34 Serum or plasma alanine aminotransferase measurement (enzymatic activity/volume ) 27 U/L 0-55 Serum or plasma protein measurement (mass/volume) 7.3 g/dL 6.4-8.2 Serum or plasma albumin measurement (mass/volume) 4.4 g/dL 3.2-4.5 Lipid 1996 panel - 08/08/16 11:00 Serum or plasma triglyceride measurement (mass/volume) 278 mg/dL <150 Serum or plasma cholesterol measurement (mass/volume) 241 mg/dL < 200 Serum or plasma cholesterol in HDL measurement (mass/volume) 34 mg/ dL 40-60 Cholesterol in LDL [mass/volume] in serum or plasma by direct assay 165 mg/dL 1-129 Serum or plasma cholesterol in VLDL measurement (mass/volume) 56 mg/ dL 5-40 Methicillin resistant Staphylococcus aureus (MRSA) screening culture - 11:00 Methicillin resistant Staphylococcus aureus (MRSA) screening culture NEG NRG PT panel in platelet poor plasma by coagulation assay - 09/12/16 14:21 Prothrombin time (PT) in platelet poor plasma by coagulation assay 27.0 s 12.2-14.7 INR in platelet poor plasma or blood by coagulation assay 2.5 0.8-1.4 Complete blood count (CBC) with automated white blood cell (WBC) differential - 01/09/17 11:03 Blood leukocytes automated count (number/volume) 8.9 10*3/uL 4.3-11.0 Blood erythrocytes automated count (number/volume) 4.97 10*6/uL 4.35-5.85 Venous blood hemoglobin measurement (mass/volume) 14.6 g/dL 13.3-17.7 Blood hematocrit (volume fraction) 43 % 40-54 Automated erythrocyte mean corpuscular volume 86 [foz_us] 80-99 Automated erythrocyte mean corpuscular hemoglobin (mass per erythrocyte) 29 pg 25-34 Automated erythrocyte mean corpuscular hemoglobin concentration measurement ( mass/volume) 34 g/dL 32-36 Automated erythrocyte distribution width ratio 13.7 % 10.0-14.5 Automated blood platelet count (count/volume) 285 10*3/uL 130-400 Automated blood platelet mean volume measurement 9.7 [foz_us] 7.4-10.4 Automated blood neutrophils/100 leukocytes 44 % 42-75 Automated blood lymphocytes/100 leukocytes 40 % 12-44 Blood monocytes/100 leukocytes 11 % 0-12 Automated blood eosinophils/100 leukocytes 4 % 0-10 Automated blood basophils/100 leukocytes 1 % 0-10 Blood neutrophils automated count (number/volume) 3.9 10*3 1.8-7.8 Blood lymphocytes automated count (number/volume) 3.5 10*3 1.0-4.0 Blood monocytes automated count (number/volume) 1.0 10*3 0.0-1.0 Automated eosinophil count 0.4 10*3/uL 0.0-0.3 Automated blood basophil count (count/volume) 0.1 10*3/uL 0.0-0.1 Comprehensive metabolic panel - 01/09/17 11:03 Serum or plasma sodium measurement (moles/volume) 140 mmol/L 135-145 Serum or plasma potassium measurement (moles/volume) 4.5 mmol/L 3.6-5.0 Serum or plasma chloride measurement (moles/volume) 105 mmol/L 98-107 Carbon dioxide 27 mmol/L 21-32 Serum or plasma anion gap determination (moles/volume) 8 mmol/L 5-14 Serum or plasma urea nitrogen measurement (mass/volume) 8 mg/dL 7-18 Serum or plasma creatinine measurement (mass/volume) 0.76 mg/dL 0.60-1.30 Serum or plasma urea nitrogen/creatinine mass ratio 11 NRG Serum or plasma creatinine measurement with calculation of estimated glomerular filtration rate > NRG Serum or plasma glucose measurement (mass/volume) 91 mg/dL 70-105 Serum or plasma calcium measurement (mass/volume) 8.9 mg/dL 8.5-10.1 Serum or plasma total bilirubin measurement (mass/volume) 0.3 mg/dL 0.1-1.0 Serum or plasma alkaline phosphatase measurement (enzymatic activity/volume) 61 U/L 40-136 Serum or plasma aspartate aminotransferase measurement (enzymatic activity/ volume) 24 U/L 5-34 Serum or plasma alanine aminotransferase measurement (enzymatic activity/volume ) 18 U/L 0-55 Serum or plasma protein measurement (mass/volume) 6.4 g/dL 6.4-8.2 Serum or plasma albumin measurement (mass/volume) 3.9 g/dL 3.2-4.5 Lipase - 01/09/17 11:03 Lipase 14 U/L 8-78 PT panel in platelet poor plasma by coagulation assay - 04/09/17 11:03 Prothrombin time (PT) in platelet poor plasma by coagulation assay 25.0 s 12.2-14.7 INR in platelet poor plasma or blood by coagulation assay 2.3 0.8-1.4 PT panel in platelet poor plasma by coagulation assay - 05/09/17 11:00 Prothrombin time (PT) in platelet poor plasma by coagulation assay 20.4 s 12.2-14.7 INR in platelet poor plasma or blood by coagulation assay 1.7 0.8-1.4 PT panel in platelet poor plasma by coagulation assay - 07/03/17 08:15 Prothrombin time (PT) in platelet poor plasma by coagulation assay 28.3 s 12.2-14.7 INR in platelet poor plasma or blood by coagulation assay 2.7 0.8-1.4 Complete blood count (CBC) with automated white blood cell (WBC) differential - 07/11/17 15:15 Blood leukocytes automated count (number/volume) 13.4 10*3/uL 4.3-11.0 Blood erythrocytes automated count (number/volume) 5.18 10*6/uL 4.35-5.85 Venous blood hemoglobin measurement (mass/volume) 15.5 g/dL 13.3-17.7 Blood hematocrit (volume fraction) 44 % 40-54 Automated erythrocyte mean corpuscular volume 86 [foz_us] 80-99 Automated erythrocyte mean corpuscular hemoglobin (mass per erythrocyte) 30 pg 25-34 Automated erythrocyte mean corpuscular hemoglobin concentration measurement ( mass/volume) 35 g/dL 32-36 Automated erythrocyte distribution width ratio 13.7 % 10.0-14.5 Automated blood platelet count (count/volume) 336 10*3/uL 130-400 Automated blood platelet mean volume measurement 9.0 [foz_us] 7.4-10.4 Automated blood neutrophils/100 leukocytes 46 % 42-75 Automated blood lymphocytes/100 leukocytes 39 % 12-44 Blood monocytes/100 leukocytes 11 % 0-12 Automated blood eosinophils/100 leukocytes 3 % 0-10 Automated blood basophils/100 leukocytes 1 % 0-10 Blood neutrophils automated count (number/volume) 6.1 10*3 1.8-7.8 Blood lymphocytes automated count (number/volume) 5.2 10*3 1.0-4.0 Blood monocytes automated count (number/volume) 1.5 10*3 0.0-1.0 Automated eosinophil count 0.4 10*3/uL 0.0-0.3 Automated blood basophil count (count/volume) 0.1 10*3/uL 0.0-0.1 Comprehensive metabolic panel - 07/11/17 15:15 Serum or plasma sodium measurement (moles/volume) 140 mmol/L 135-145 Serum or plasma potassium measurement (moles/volume) 3.5 mmol/L 3.6-5.0 Serum or plasma chloride measurement (moles/volume) 102 mmol/L 98-107 Carbon dioxide 27 mmol/L 21-32 Serum or plasma anion gap determination (moles/volume) 11 mmol/L 5-14 Serum or plasma urea nitrogen measurement (mass/volume) 9 mg/dL 7-18 Serum or plasma creatinine measurement (mass/volume) 0.82 mg/dL 0.60-1.30 Serum or plasma urea nitrogen/creatinine mass ratio 11 NRG Serum or plasma creatinine measurement with calculation of estimated glomerular filtration rate > NRG Serum or plasma glucose measurement (mass/volume) 102 mg/dL 70-105 Serum or plasma calcium measurement (mass/volume) 9.4 mg/dL 8.5-10.1 Serum or plasma total bilirubin measurement (mass/volume) 0.4 mg/dL 0.1-1.0 Serum or plasma alkaline phosphatase measurement (enzymatic activity/volume) 78 U/L 40-136 Serum or plasma aspartate aminotransferase measurement (enzymatic activity/ volume) 17 U/L 5-34 Serum or plasma alanine aminotransferase measurement (enzymatic activity/volume ) 17 U/L 0-55 Serum or plasma protein measurement (mass/volume) 7.6 g/dL 6.4-8.2 Serum or plasma albumin measurement (mass/volume) 4.3 g/dL 3.2-4.5 Magnesium - 07/11/17 15:15 Magnesium 2.1 mg/dL 1.8-2.4 PT panel in platelet poor plasma by coagulation assay - 07/11/17 15:15 Prothrombin time (PT) in platelet poor plasma by coagulation assay 15.7 s 12.2-14.7 INR in platelet poor plasma or blood by coagulation assay 1.2 0.8-1.4 Activated partial thromboplastin time (aPTT) in platelet poor plasma bycoagulation assay - 07/11/17 15:15 Activated partial thromboplastin time (aPTT) in platelet poor plasma bycoagulation assay 28 s 24-35 Serum or plasma troponin i.cardiac measurement (mass/volume) - 07/11/17 15:15 Serum or plasma troponin i.cardiac measurement (mass/volume) < ng/ mL <0.30 Fibrin D-dimer FEU measurement in platelet poor plasma (mass/volume) - 15:15 Fibrin D-dimer FEU measurement in platelet poor plasma (mass/volume) 0.28 ug/mL 0.00-0.49 Myoglobin, serum - 07/11/17 15:15 Myoglobin, serum 31.5 ng/mL 10.0-92.0 Serum or plasma troponin i.cardiac measurement (mass/volume) - 07/11/17 21:45 Serum or plasma troponin i.cardiac measurement (mass/volume) 0.57 ng /mL <0.30 Complete blood count (CBC) with automated white blood cell (WBC) differential - 07/12/17 05:24 Blood leukocytes automated count (number/volume) 15.1 10*3/uL 4.3-11.0 Blood erythrocytes automated count (number/volume) 4.61 10*6/uL 4.35-5.85 Venous blood hemoglobin measurement (mass/volume) 13.3 g/dL 13.3-17.7 Blood hematocrit (volume fraction) 40 % 40-54 Automated erythrocyte mean corpuscular volume 87 [foz_us] 80-99 Automated erythrocyte mean corpuscular hemoglobin (mass per erythrocyte) 29 pg 25-34 Automated erythrocyte mean corpuscular hemoglobin concentration measurement ( mass/volume) 33 g/dL 32-36 Automated erythrocyte distribution width ratio 13.8 % 10.0-14.5 Automated blood platelet count (count/volume) 278 10*3/uL 130-400 Automated blood platelet mean volume measurement 9.5 [foz_us] 7.4-10.4 Automated blood neutrophils/100 leukocytes 77 % 42-75 Automated blood lymphocytes/100 leukocytes 14 % 12-44 Blood monocytes/100 leukocytes 8 % 0-12 Automated blood eosinophils/100 leukocytes 0 % 0-10 Automated blood basophils/100 leukocytes 0 % 0-10 Blood neutrophils automated count (number/volume) 11.7 10*3 1.8-7.8 Blood lymphocytes automated count (number/volume) 2.1 10*3 1.0-4.0 Blood monocytes automated count (number/volume) 1.2 10*3 0.0-1.0 Automated eosinophil count 0.0 10*3/uL 0.0-0.3 Automated blood basophil count (count/volume) 0.0 10*3/uL 0.0-0.1 Comprehensive metabolic panel - 07/12/17 05:24 Serum or plasma sodium measurement (moles/volume) 137 mmol/L 135-145 Serum or plasma potassium measurement (moles/volume) 3.8 mmol/L 3.6-5.0 Serum or plasma chloride measurement (moles/volume) 103 mmol/L 98-107 Carbon dioxide 25 mmol/L 21-32 Serum or plasma anion gap determination (moles/volume) 9 mmol/L 5-14 Serum or plasma urea nitrogen measurement (mass/volume) 8 mg/dL 7-18 Serum or plasma creatinine measurement (mass/volume) 0.67 mg/dL 0.60-1.30 Serum or plasma urea nitrogen/creatinine mass ratio 12 NRG Serum or plasma creatinine measurement with calculation of estimated glomerular filtration rate > NRG Serum or plasma glucose measurement (mass/volume) 123 mg/dL 70-105 Serum or plasma calcium measurement (mass/volume) 8.7 mg/dL 8.5-10.1 Serum or plasma total bilirubin measurement (mass/volume) 0.7 mg/dL 0.1-1.0 Serum or plasma alkaline phosphatase measurement (enzymatic activity/volume) 64 U/L 40-136 Serum or plasma aspartate aminotransferase measurement (enzymatic activity/ volume) 95 U/L 5-34 Serum or plasma alanine aminotransferase measurement (enzymatic activity/volume ) 26 U/L 0-55 Serum or plasma protein measurement (mass/volume) 6.3 g/dL 6.4-8.2 Serum or plasma albumin measurement (mass/volume) 3.7 g/dL 3.2-4.5 Lipid 1996 panel - 07/12/17 05:24 Serum or plasma triglyceride measurement (mass/volume) 185 mg/dL <150 Serum or plasma cholesterol measurement (mass/volume) 192 mg/dL < 200 Serum or plasma cholesterol in HDL measurement (mass/volume) 34 mg/ dL 40-60 Cholesterol in LDL [mass/volume] in serum or plasma by direct assay 143 mg/dL 1-129 Serum or plasma cholesterol in VLDL measurement (mass/volume) 37 mg/ dL 5-40 Blood manual differential performed detection - 07/12/17 05:24 Blood monocytes/100 leukocytes 14 % NRG Manual blood segmented neutrophils/100 leukocytes 73 % NRG Blood band neutrophils/100 leukocytes 0 % NRG Manual blood lymphocytes/100 leukocytes 13 % NRG Blood erythrocyte morphology finding identification NORMAL NRG Automated blood complete blood count (hemogram) panel - 07/13/17 03:08 Blood leukocytes automated count (number/volume) 11.1 10*3/uL 4.3-11.0 Blood erythrocytes automated count (number/volume) 4.39 10*6/uL 4.35-5.85 Venous blood hemoglobin measurement (mass/volume) 12.8 g/dL 13.3-17.7 Blood hematocrit (volume fraction) 39 % 40-54 Automated erythrocyte mean corpuscular volume 88 [foz_us] 80-99 Automated erythrocyte mean corpuscular hemoglobin (mass per erythrocyte) 29 pg 25-34 Automated erythrocyte mean corpuscular hemoglobin concentration measurement ( mass/volume) 33 g/dL 32-36 Automated erythrocyte distribution width ratio 14.0 % 10.0-14.5 Automated blood platelet count (count/volume) 252 10*3/uL 130-400 Automated blood platelet mean volume measurement 9.6 [foz_us] 7.4-10.4 Whole blood basic metabolic panel - 07/13/17 03:08 Serum or plasma sodium measurement (moles/volume) 139 mmol/L 135-145 Serum or plasma potassium measurement (moles/volume) 4.0 mmol/L 3.6-5.0 Serum or plasma chloride measurement (moles/volume) 104 mmol/L 98-107 Carbon dioxide 27 mmol/L 21-32 Serum or plasma anion gap determination (moles/volume) 8 mmol/L 5-14 Serum or plasma urea nitrogen measurement (mass/volume) 9 mg/dL 7-18 Serum or plasma creatinine measurement (mass/volume) 0.74 mg/dL 0.60-1.30 Serum or plasma urea nitrogen/creatinine mass ratio 12 NRG Serum or plasma creatinine measurement with calculation of estimated glomerular filtration rate > NRG Serum or plasma glucose measurement (mass/volume) 101 mg/dL 70-105 Serum or plasma calcium measurement (mass/volume) 8.8 mg/dL 8.5-10.1 PT panel in platelet poor plasma by coagulation assay - 07/14/17 10:30 Prothrombin time (PT) in platelet poor plasma by coagulation assay 14.2 s 12.2-14.7 INR in platelet poor plasma or blood by coagulation assay 1.1 0.8-1.4 PT panel in platelet poor plasma by coagulation assay - 07/15/17 04:45 Prothrombin time (PT) in platelet poor plasma by coagulation assay 15.5 s 12.2-14.7 INR in platelet poor plasma or blood by coagulation assay 1.2 0.8-1.4 Automated blood complete blood count (hemogram) panel - 08/09/17 09:29 Blood leukocytes automated count (number/volume) 7.4 10*3/uL 4.3-11.0 Blood erythrocytes automated count (number/volume) 4.80 10*6/uL 4.35-5.85 Venous blood hemoglobin measurement (mass/volume) 13.7 g/dL 13.3-17.7 Blood hematocrit (volume fraction) 42 % 40-54 Automated erythrocyte mean corpuscular volume 87 [foz_us] 80-99 Automated erythrocyte mean corpuscular hemoglobin (mass per erythrocyte) 29 pg 25-34 Automated erythrocyte mean corpuscular hemoglobin concentration measurement ( mass/volume) 33 g/dL 32-36 Automated erythrocyte distribution width ratio 13.9 % 10.0-14.5 Automated blood platelet count (count/volume) 291 10*3/uL 130-400 Automated blood platelet mean volume measurement 9.0 [foz_us] 7.4-10.4 Whole blood basic metabolic panel - 08/09/17 09:29 Serum or plasma sodium measurement (moles/volume) 142 mmol/L 135-145 Serum or plasma potassium measurement (moles/volume) 4.5 mmol/L 3.6-5.0 Serum or plasma chloride measurement (moles/volume) 105 mmol/L 98-107 Carbon dioxide 27 mmol/L 21-32 Serum or plasma anion gap determination (moles/volume) 10 mmol/L 5-14 Serum or plasma urea nitrogen measurement (mass/volume) 16 mg/dL 7-18 Serum or plasma creatinine measurement (mass/volume) 0.74 mg/dL 0.60-1.30 Serum or plasma urea nitrogen/creatinine mass ratio 22 NRG Serum or plasma creatinine measurement with calculation of estimated glomerular filtration rate > NRG Serum or plasma glucose measurement (mass/volume) 100 mg/dL 70-105 Serum or plasma calcium measurement (mass/volume) 10.0 mg/dL 8.5-10.1 Encounters ACCT No. Visit Date/Time Discharge Status Pt. Type Provider Facility Loc./Unit Complaint [id number] 11/19/2014 09:47:00 11/19/2014 23:59:59 CLS Outpatient TRE SULTANA APRN [id number] 01/30/2014 12:54:00 01/30/2014 23:59:59 CLS Outpatient UTE PUTNAM APRN [id number] 11/25/2012 09:24:00 11/25/2012 23:59:59 CLS Outpatient NIESHA BECK CALVIN Gurmeet [id number] 09/05/2017 10:30:00 09/05/2017 23:59:59 CLS Outpatient JEFFERY DE SOUZA MD [facility] CARD CAD, CHEST PAIN SYNDROME [id number] 09/04/2017 11:37:00 09/04/2017 23:59:59 CLS Outpatient JEFFERY DE SOUZA MD [facility] CR CHF [id number] 08/30/2017 11:00:00 08/30/2017 23:59:59 CLS Outpatient JEFFERY DE SOUZA MD [facility] LAB I26.99 [id number] 05/26/2017 07:00:00 08/24/2017 00:01:00 DIS Outpatient JEFFERY DE SOUZA MD [facility] LAB I26.99 [id number] 08/09/2017 09:16:00 08/09/2017 23:59:59 CLS Outpatient FREDRICK MCCAULEY MD [facility] LAB Z01.812 I25.119 [id number] 08/02/2017 11:24:00 08/02/2017 11:53:00 DIS Emergency ROCHELLE OLIVER [facility] ER LUMP ON CHEST [id number] 07/11/2017 17:12:00 07/15/2017 14:45:00 DIS Inpatient SONIYA JAMES DO [facility] ICU CHEST PAIN,N/V [id number] 05/09/2017 10:49:00 05/25/2017 00:01:00 DIS Outpatient JEFFERY DE SOUZA MD [facility] LAB I26.99 [id number] 04/13/2017 15:07:00 04/13/2017 17:28:00 DIS Emergency ROCHELLE OLIVER [facility] ER SWELLING IN R ARM AFTER FLU SHOT [id number] 04/09/2017 10:55:00 04/09/2017 23:59:59 CLS Outpatient JEFFERY DE SOUZA MD [facility] LAB I26.99,Z51.81 [id number] 04/03/2017 00:08:00 04/03/2017 23:59:59 CLS Preadmit JEFFERY DE SOUZA MD [facility] LAB DVT [id number] 02/20/2017 11:24:00 04/02/2017 00:01:00 DIS Outpatient JEFFERY DE SOUZA MD [facility] LAB DVT [id number] 01/09/2017 17:21:00 01/09/2017 19:18:00 DIS Emergency ROCHELLE OLIVER [facility] ER LOWER CHEST PAIN [id number] 11/28/2016 08:17:00 12/11/2016 00:01:00 DIS Outpatient JEFFERY DE SOUZA MD [facility] LAB DVT [id number] 07/02/2016 13:09:00 08/30/2016 00:01:00 DIS Outpatient JEFFERY DE SOUZA MD [facility] LAB DVT [id number] 08/08/2016 10:25:00 08/08/2016 19:55:00 DIS Outpatient JEFFERY DE SOUZA MD [facility] CATH ABN STRESS,CP,CAD [id number] 08/06/2016 07:31:00 08/06/2016 23:59:59 CLS Outpatient JEFFERY DE SOUZA MD [facility] CARD CAD, CHF, CHEST PAIN SYNDROME, DVT, HTN, PE [id number] 07/26/2016 11:12:00 07/26/2016 23:59:59 CLS Outpatient JEFFERY DE SOUZA MD [facility] CARD CAD, CHF, CHEST PAIN SYNDROME, DVT, HTN, PE [id number] 02/22/2016 13:12:00 05/22/2016 00:01:00 DIS Outpatient JEFFERY DE SOUZA MD [facility] LAB DVT [id number] 01/22/2016 14:55:00 01/22/2016 17:15:00 DIS Emergency VIANEY SWEET APRN [facility] ER R ARM PAIN [id number] 04/01/2015 09:29:00 05/25/2015 00:01:00 DIS Outpatient JEFFERY DE SOUZA MD [facility] LAB ANTICOAG THERAPY,HX PE [id number] 04/01/2015 08:34:00 04/01/2015 10:54:00 DIS Emergency JOHN MONDRAGON MD [facility] ER RIGHT FOOT PAIN/COUGH [id number] 10/27/2014 11:05:00 01/25/2015 00:01:00 DIS Outpatient JEFFERY DE SOUZA MD [facility] LAB ANTICOAG THERAPY,HX PE [id number] 06/01/2014 14:51:00 2014 00:01:00 DIS Outpatient JEFFERY DE SOUZA MD [facility] LAB ANTICOAG THERAPY,HX PE [id number] 12/07/2013 18:10:00 12/20/2013 00:01:00 DIS Outpatient JEFFERY DE SOUZA MD [facility] LAB ANTICOAG THERAPY,HX PE [id number] 05/03/2013 15:59:00 07/08/2013 00:01:00 DIS Outpatient NOLVIA ENRIQUE JEFFERY Gutierrez [facility] LAB ANTICOAG THERAPY,HX PE [id number] 01/09/2013 18:23:00 01/09/2013 19:22:00 DIS Emergency YVETTE ENRIQUE, MENDOZA Gruber [facility] ER LEFT ANKLE PAIN [id number] 07/06/2015 09:36:00 Document Registration [id number] 07/06/2015 09:36:00 Document Registration [id number] 07/06/2015 09:36:00 Document Registration [id number] 07/06/2015 09:36:00 Document Registration [id number] 07/06/2015 09:36:00 Document Registration [id number] 07/06/2015 09:36:00 Document Registration [id number] 07/06/2015 09:36:00 Document Registration [id number] 07/06/2015 09:36:00 Document Registration [id number] 07/06/2015 09:36:00 Document Registration [id number] 07/06/2015 09:36:00 Document Registration [id number] 07/06/2015 09:36:00 Document Registration [id number] 07/06/2015 09:36:00 Document Registration [id number] 11/25/2014 10:38:00 Document Registration [id number] 11/25/2014 10:38:00 Document Registration [id number] 11/25/2014 10:37:00 Document Registration [id number] 11/25/2014 10:37:00 Document Registration [id number] 10/31/2014 21:35:00 Document Registration [id number] 12/02/2012 16:55:00 Document Registration [id number] 11/11/2012 08:29:00 Document Registration [id number] 10/14/2012 10:36:00 Document Registration [id number] 09/24/2012 07:36:00 Document Registration [id number] 09/17/2012 10:00:00 Document Registration [id number] 09/16/2012 13:04:00 Document Registration [id number] 07/27/2012 16:16:00 Document Registration [id number] 04/30/2012 21:41:00 Document Registration [id number] 04/02/2012 12:15:00 Document Registration [id number] 11/18/2011 13:43:00 Document Registration [id number] 06/04/2011 10:15:00 Document Registration [id number] 05/23/2011 06:51:00 Document Registration [id number] 05/19/2011 08:46:00 Document Registration [id number] 01/16/2011 10:21:00 Document Registration [id number] 11/26/2010 14:37:00 Document Registration [id number] 05/17/2010 09:40:00 Document Registration [id number] 01/18/2010 17:02:00 Document Registration [id number] 12/29/2009 09:19:00 Document Registration [id number] 08/04/2009 08:28:00 Document Registration [id number] 04/28/2009 13:16:00 Document Registration [id number] 06/09/2008 08:46:00 Document Registration [id number] 05/10/2008 12:11:00 Document Registration [id number] 03/25/2008 14:03:00 Document Registration [id number] 01/03/2008 08:26:00 Document Registration [id number] 11/20/2007 09:23:00 Document Registration [id number] 10/23/2007 11:12:00 Document Registration [id number] 10/02/2007 12:14:00 Document Registration [id number] 03/27/2007 10:33:00 Document Registration [id number] 01/07/2007 14:25:00 Document Registration [id number] 11/04/2006 08:46:00 Document Registration [id number] 10/08/2006 14:49:00 Document Registration [id number] 09/02/2006 07:21:00 Document Registration [id number] 08/16/2006 08:00:00 Document Registration [id number] 07/08/2006 08:52:00 Document Registration [id number] 06/19/2006 16:48:00 Document Registration [id number] 03/27/2006 11:44:00 Document Registration [id number] 03/04/2006 09:32:00 Document Registration [id number] 02/15/2006 08:15:00 Document Registration [id number] 12/05/2005 11:33:00 Document Registration [id number] 10/03/2005 11:41:00 Document Registration
[2017-09-15] MEDS ORDERED: KETOROLAC 30 MG/ML VIAL IVP ONE (12:30)
[2017-09-15] MEDS ORDERED: fentaNYL INJECTION 100 MCG/2 ML AMP IVP ONE (12:30)
--- NOTE | 2017-09-15 12:31 | ED Lower Extremity ---
General Chief Complaint: Lower Extremity Stated Complaint: L LEG PAIN/SWELLING/HX BLOOD CLOTS Source: patient Exam Limitations: no limitations History of Present Illness Date Seen by Provider: Sep 15, 2017 Time Seen by Provider: 12:30 Initial Comments To ER with sudden onset left foot and ankle pain. This began about one hour ago at the dinner table. He has a history of gout. No injury to the ankle. Unable to bear weight due to the pain. Also has a history of DVT affecting this leg. He is on warfarin and Plavix. Additionally, he had some chest pain at about 10 AM this morning for which he took a nitroglycerin sublingual and resolved his pain. Denies chest pain or shortness of breath at this time. He did have myocardial infarction and stenting a few months ago. Onset: this evening Severity: moderate Pain/Injury Location: left foot, left ankle Modifying Factors: Worse With Movement Allergies and Home Medications Allergies Coded Allergies: Penicillins (Unverified Allergy, Mild, 01/27/09) Home Medications Aspirin 81 Mg Tablet.dr, 81 MG PO DAILY, (Reported) Atorvastatin Calcium 40 Mg Tablet, 40 MG PO DAILY, (Reported) Carisoprodol 350 Mg Tablet, 350 MG PO HS, (Reported) Clopidogrel Bisulfate 75 Mg Tablet, 75 MG PO DAILY, #30 Prescribed by: RAJANI HELMS on 07/15/17 0752 Gabapentin 600 Mg Tablet, 600 MG PO TID, (Reported) Gemfibrozil 600 Mg Tablet, 600 MG PO BID, (Reported) Hydrocodone/Acetaminophen 1 Each Tablet, 1 TAB PO TID PRN for PAIN-MODERATE, ( Reported) Lisinopril 2.5 Mg Tablet, 2.5 MG PO DAILY, (Reported) Metoprolol Succinate 25 Mg Tab.er.24h, 25 MG PO DAILY, (Reported) Mcfall 3 Polyunsat Fatty Acids 1,000 Mg Cap, 1,000 MG PO TID, (Reported) Tizanidine HCl 4 Mg Tablet, 8 MG PO TID PRN for MUSCLE SPASMS, (Reported) TAKES 2 (4MG) TABLETS Warfarin Sodium 5 Mg Tablet, 7.5 MG PO MoWe, (Reported) TAKES 1 & 1/2 (5MG) TABLETS Warfarin Sodium 5 Mg Tablet, 5 MG PO SuTuThFrSa, (Reported) Constitutional: see HPI EENTM: see HPI Respiratory: no symptoms reported Cardiovascular: no symptoms reported Genitourinary: no symptoms reported Musculoskeletal: see HPI Skin: no symptoms reported Psychiatric/Neurological: No Symptoms Reported Past Kmkxadl-Lhbqxv-Vszkcg Hx Patient Social History Recent Foreign Travel: No Contact w/Someone Who Travel: No Recent Hopitalizations: No Immunizations Up To Date Date of Pneumonia Vaccine: Jul 28, 2012 Date of Influenza Vaccine: Jun 08, 2017 Seasonal Allergies Seasonal Allergies: No Surgeries History of Surgeries: Yes (STENTS) Respiratory History of Respiratory Disorde: Yes Cardiovascular History of Cardiac Disorders: Yes (STENT) Cardiac Disorders: Heart Attack, High Cholesterol, Hypertension Neurological History of Neurological Disord: No Reproductive System Hx Reproductive Disorders: No Gastrointestinal History of Gastrointestinal Di: Yes Gastrointestinal Disorders: Gastroesophageal Reflux Musculoskeletal History of Musculoskeletal Dis: Yes Musculoskeletal Disorders: Chronic Back Pain Endocrine History of Endocrine Disorders: No Cancer History of Cancer: No Psychosocial History of Psychiatric Problem: No Integumentary History of Skin or Integumenta: No Blood Transfusions History of Blood Disorders: Yes (PROTEIN S DEF) Family Medical History Significant Family History: Heart Disease, Vascular Disease Physical Exam Vital Signs Vital Sign - Last 12Hours 09/15/17 12:10 Temp 99.5 Pulse 60 Resp 18 B/P (MAP) 138/85 (102) O2 Delivery Room Air Capillary Refill : General Appearance: WD/WN, no apparent distress, moderate distress (jumps with even light touch of the skin to any part of his body) HEENT: PERRL/EOMI, normal ENT inspection Neck: non-tender, full range of motion Respiratory: normal breath sounds, no respiratory distress, no accessory muscle use Gastrointestinal: normal bowel sounds, non tender, soft Hips: bilateral hip non-tender, bilateral hip normal inspection, bilateral hip normal range of motion Legs: bilateral leg non-tender, bilateral leg normal inspection, bilateral leg normal range of motion Knees: bilateral knee non-tender, bilateral knee normal inspection, bilateral knee normal range of motion Ankles: left ankle pain, left ankle soft tissue tenderness, left ankle other ( erythema over the medial and lateral malleolus without lymphangitis) Feet: bilateral foot non-tender, bilateral foot normal inspection, bilateral foot normal range of motion Neurologic/Psychiatric: alert, normal mood/affect, oriented x 3 Skin: normal color, warm/dry Progress/Results/Core Measures Results/Orders Lab Results Laboratory Tests Test 09/15/17 12:45 Range/Units White Blood Count 18.3 H 4.3-11.0 10^3/uL Red Blood Count 4.57 4.35-5.85 10^6/uL Hemoglobin 13.5 13.3-17.7 G/DL Hematocrit 40 40-54 % Mean Corpuscular Volume 88 80-99 FL Mean Corpuscular Hemoglobin 30 25-34 PG Mean Corpuscular Hemoglobin Concent 34 32-36 G/DL Red Cell Distribution Width 14.5 10.0-14.5 % Platelet Count 357 130-400 10^3/uL Mean Platelet Volume 8.8 7.4-10.4 FL Neutrophils (%) (Auto) 86 H 42-75 % Lymphocytes (%) (Auto) 8 L 12-44 % Monocytes (%) (Auto) 6 0-12 % Eosinophils (%) (Auto) 1 0-10 % Basophils (%) (Auto) 0 0-10 % Neutrophils # (Auto) 15.7 H 1.8-7.8 X 10^3 Lymphocytes # (Auto) 1.4 1.0-4.0 X 10^3 Monocytes # (Auto) 1.1 H 0.0-1.0 X 10^3 Eosinophils # (Auto) 0.2 0.0-0.3 10^3/uL Basophils # (Auto) 0.0 0.0-0.1 10^3/uL Neutrophils % (Manual) 88 % Lymphocytes % (Manual) 4 % Monocytes % (Manual) 3 % Eosinophils % (Manual) 1 % Basophils % (Manual) 0 % Band Neutrophils 4 % Blood Morphology Comment NORMAL Erythrocyte Sedimentation Rate 13 0-15 MM/HR Prothrombin Time 32.8 H 12.2-14.7 SEC INR Comment 3.2 H 0.8-1.4 Sodium Level 142 135-145 MMOL/L Potassium Level 3.6 3.6-5.0 MMOL/L Chloride Level 99 98-107 MMOL/L Carbon Dioxide Level 28 21-32 MMOL/L Anion Gap 15 H 5-14 MMOL/L Blood Urea Nitrogen 10 7-18 MG/DL Creatinine 0.89 0.60-1.30 MG/DL Estimat Glomerular Filtration Rate > 60 BUN/Creatinine Ratio 11 Glucose Level 150 H 70-105 MG/DL Uric Acid 5.3 2.6-7.2 MG/DL Calcium Level 9.6 8.5-10.1 MG/DL Troponin I < 0.30 <0.30 NG/ML C-Reactive Protein High Sensitivity 0.80 H 0.00-0.50 MG/DL My Orders Orders - VIANEY SWEET APRN Cbc With Automated Diff (09/15/17 12:26) Basic Metabolic Panel (09/15/17 12:26) Protime With Inr (09/15/17 12:26) Saline Lock/Iv-Start (09/15/17 12:26) Ketorolac Injection (Toradol Injection) (09/15/17 12:30) Fentanyl Injection (Sublimaze Injection (09/15/17 12:30) Ekg Tracing (09/15/17 12:26) Uric Acid (09/15/17 12:26) Troponin I (09/15/17 12:26) Manual Differential (09/15/17 12:45) Erythrocyte Sedimentation Rate (09/15/17 13:02) Hs C Reactive Protein (09/15/17 13:02) Ankle, Left, 3 Views (09/15/17 13:02) Colchicine Tablet (Colcrys Tablet) (09/15/17 13:45) Medications Given in ED Current Medications Medications Dose Ordered Sig/Erik Route Start Time Stop Time Status Last Admin Dose Admin Colchicine 1.2 mg ONCE ONCE PO 09/15/17 13:45 09/15/17 13:46 DC 09/15/17 14:22 1.2 MG Fentanyl Citrate 50 mcg ONCE ONCE IVP 09/15/17 12:30 09/15/17 12:31 DC 09/15/17 12:39 50 MCG Ketorolac Tromethamine 30 mg ONCE ONCE IVP 09/15/17 12:30 09/15/17 12:31 DC 09/15/17 12:37 30 MG Vital Signs/I&O Vital Sign - Last 12Hours 09/15/17 12:10 Temp 99.5 Pulse 60 Resp 18 B/P (MAP) 138/85 (102) O2 Delivery Room Air Departure Impression Impression: Primary Impression: Gouty arthropathy Additional Impression: angina resolved Disposition: 01 HOME, SELF-CARE Condition: Stable Departure-Patient Inst. Decision time for Depature: 14:13 Referrals: MARTHA LARSON MD (PCP/Family) Primary Care Physician Patient Instructions: Gout, Lifestyle Changes to Manage Gout Add. Discharge Instructions: 1. Return to ER for any concerns 2. Follow-up with your doctor next week. Please follow-up with her supervisor area within 48 hours. Call tomorrow to make an appointment to be seen 3. All discharge instructions reviewed with patient and/or family. Voiced understanding. Scripts Prednisone (Prednisone) 20 Mg Tab 40 MG PO DAILY for 2 Days, TAB Prov: VIANEY SWEET APRN 09/15/17 Work/School Note: Work Release Form Date Seen in the Emergency Department: Sep 15, 2017 Return to Work: Sep 19, 2017 VIANEY SWEET APRN Sep 15, 2017 12:31
[2017-09-15 12:53] LABS: BASOPHILS % (AUTO) 0 % (0-10); EOSINOPHILS # (AUTO) 0.2 10^3/uL (0.0-0.3); EOSINOPHILS % (AUTO) 1 % (0-10); HEMATOCRIT 40 % (40-54); HEMOGLOBIN 13.5 G/DL (13.3-17.7); LYMPHOCYTES # (AUTO) 1.4 X 10^3 (1.0-4.0); LYMPHOCYTES % (AUTO) 8 % (12-44); MEAN CORPUSCULAR HEMOGLOBIN 30 PG (25-34); MEAN CORPUSCULAR HGB CONC 34 G/DL (32-36); MEAN CORPUSCULAR VOLUME 88 FL (80-99); MEAN PLATELET VOLUME 8.8 FL (7.4-10.4); MONOCYTES # (AUTO) 1.1 X 10^3 (0.0-1.0); MONOCYTES % (AUTO) 6 % (0-12); NEUTROPHILS # (AUTO) 15.7 X 10^3 (1.8-7.8); NEUTROPHILS % (AUTO) 86 % (42-75); PLATELET COUNT 357 10^3/uL (130-400); RED BLOOD COUNT 4.57 10^6/uL (4.35-5.85); RED CELL DISTRIBUTION WIDTH 14.5 % (10.0-14.5); WHITE BLOOD COUNT 18.3 10^3/uL (4.3-11.0)
[2017-09-15 13:02] LABS: INR 3.2 (0.8-1.4); PROTHROMBIN TIME PATIENT 32.8 SEC (12.2-14.7)
[2017-09-15 13:16] LABS: BUN/CREATININE RATIO 11; CALCIUM 9.6 MG/DL (8.5-10.1); CARBON DIOXIDE 28 MMOL/L (21-32); CHLORIDE 99 MMOL/L (98-107); CREATININE SERUM 0.89 MG/DL (0.60-1.30); GFR ESTIMATED > 60; GLUCOSE 150 MG/DL (70-105); POTASSIUM 3.6 MMOL/L (3.6-5.0); SODIUM 142 MMOL/L (135-145); URIC ACID 5.3 MG/DL (2.6-7.2)
[2017-09-15 13:17] LABS: BAND NEUTROPHILS 4 %; BASOPHILS % (MANUAL) 0 %; EOSINOPHILS % (MANUAL) 1 %; LYMPHOCYTES % (MANUAL) 4 %; MONOCYTES % (MANUAL) 3 %; NEUTROPHILS % (MANUAL) 88 %
[2017-09-15 13:18] LABS: RBC MORPH NORMAL
[2017-09-15] MEDS ORDERED: COLCHICINE 0.6 MG (COLCRYS) TABLET PO ONE (13:45)
--- NOTE | 2017-09-15 14:20 | Diagnostic Imaging Report ---
INDICATION: Ankle pain and swelling. 3 views were obtained. FINDINGS: There are old post traumatic changes to the medial malleolus. Plafonds and talar dome are intact. There is no acute fracture or dislocation. IMPRESSION: Presumed old post traumatic changes in the medial malleolus otherwise unremarkable. Dictated by: Dictated on workstation # [id number]
[2017-09-15] MEDS ORDERED: PRD20T PO (14:27)
[2017-09-15] MEDS ORDERED: predniSONE 20 MG TAB PO ONE (14:30)
[2017-09-15 15:31] VITALS: BP 166/87
== END 2017-09-15 15:31 | disposition home or self-care (01) ==
LOC: EDUNIT# 11:42 → ER 11:43
DX: M10.9 Gout, unspecified (principal); I20.9 Angina pectoris, unspecified; I25.2 Old myocardial infarction; E78.00 Pure hypercholesterolemia, unspecified; I10 Essential (primary) hypertension; K21.9 Gastro-esophageal reflux disease without esophagitis; Z82.49 Family history of ischemic heart disease and other diseases of the circulatory system; Z86.718 Personal history of other venous thrombosis and embolism; Z79.01 Long term (current) use of anticoagulants; Z79.02 Long term (current) use of antithrombotics/antiplatelets; Z95.5 Presence of coronary angioplasty implant and graft; Z79.82 Long term (current) use of aspirin
CPT/HCPCS: 36415; 73610; 80048; 84484; 84550; 85007; 85027; 85610; 85652; 86141; 93005; 96374; 96375

== ENCOUNTER → 2017-09-17 | Outpatient (CLI) | payer BC ==
--- NOTE | 2017-09-17 11:39 | Diagnostic Imaging Report ---
PROCEDURE: US left lower extremity venous. TECHNIQUE: Multiple real-time grayscale images were obtained over the left lower extremity in various projections. Additional duplex Doppler and color Doppler images were also obtained. INDICATION: Left leg pain and swelling. FINDINGS: There is no evidence of a left lower extremity DVT. The left lower extremity venous system demonstrates normal compressibility with normal response to augmentation and Valsalva. No soft tissue fluid collections are identified. IMPRESSION: No evidence of left lower extremity DVT. Dictated by: Dictated on workstation # [id number]
== END ==
LOC: RAD 09:08
PROVIDERS: ATTEND Internal Medicine Cardiovascular Disease

== ENCOUNTER 2017-09-22 23:01 | Inpatient (IN) | payer BC ==
[~2017-09-22] VITALS: Ht 180.3 cm; Wt 89.8 kg
[~2017-09-22 23:01] MED LIST changes: +HYDR-34; +HYDR-34 PO; -HYDR-3816; -HYDR-3816 PO
--- OUTSIDE RECORDS SUMMARY | 2017-09-22 23:07 | XMS REPORT | Clinical Summary ---
Author Author [facility] Organization [facility] Address Unknown Phone Unavailable Care Team Providers Care Layaway Clerk Name Role Phone Jayro Duran MD 21 Martha Flowers MD PCP Source Comments Some departments are not documenting in the electronic medical record. If you do not see the information that you expected, contact Release of Information in the Health Information Management department at [phone] for further assistance in locating additional records.[facility] Allergies Active Allergy Reactions Severity Noted Date [...] Active 25 mg extended release daily. tablet [place]-3 Acid Ethyl Esters Take 1 g by [...] every 6 hours as needed for Pain Active Problems Problem Noted Date CAD (coronary artery disease) 08/12/2017 Coronary artery disease involving bois forte coronary artery of bois [place]te heart with angina pectoris (HCC) Overview: 07/12/17 - NSTEMI at [facility] in [place], [place]. Successful PCI with a Resolute Integrity 2.5 x 26 mm stent to the OM with Dr. Rhoades. Unsuccessful PCI to the RCA LEAN SIX SIGMA BLACK BELT. Pt referred to Dr. Warner for possible LEAN SIX SIGMA BLACK BELT procedure. 08/06/16 - Nuclear stress test ([facility]): No ischemia or arrhythmia on EKG. Diaphragmatic attenuation with reversible ischemia involving the mid to apical inferior wall and inferolateral wall. Normal left ventricular size with mild hypokinesis at the lateral wall. EF 50%. Previous history of Promus stent placement to - date unknown. NSTEMI (non-ST elevated myocardial infarction) ([facility]) 08/07/2017 Overview: 07/12/17 at [facility] [place], [place]. Tobacco abuse 08/07/2017 Ischemic cardiomyopathy 08/07/2017 Overview: 07/12/17 - Echo ([facility]): EF 30-35%. Left ventricular cavity size increased. Wall thickness normal. Regional wall motion abnormalities. Akinesis of the inferior myocardium. Akinesis of the lateral myocardium. 07/12/17 - NSTEMI - EF 20%, severe left ventricular systolic function (per cath report). Life Vest applied for primary prevention of sudden cardiac . Mild mitral regurgitation 08/07/2017 Mild tricuspid regurgitation 08/07/2017 Protein S deficiency (HCC) 08/07/2017 Overview: On warfarin. Encounters Date Type Specialty Care Team Description 09/02/2017 Telephone Cardiology Alee Awad RN Records Request ( cath report faxed to Dr. Duran's office) 08/12/2017 Hospital Cardiology Seth Warner MD Coronary artery disease - Encounter involving bois forte coronary 08/13/2017 artery of bo[place]te heart with angina pectoris (HCC) 08/12/2017 Hospital Lab Luna Dee APRN Atherosclerotic heart Encounter disease of bo[place] coronary artery with unspecified angina pectoris (HCC) 08/12/2017 Hospital Cardiology Seth Warner MD Encounter 08/12/2017 Office Visit Cardiology Seth Warner MD Cardiac Eval 08/12/2017 Orders Only Cardiology Alee Awad RN Chronic anticoagulation (Primary Dx) 08/12/2017 Procedure Pass Cardiology 08/12/2017 Surgery Cardiology Seth Warner MD Percutaneous Coronary Intervention of Chronic Total Occlusion Right Coronary Artery (Retrograde Approach) 08/09/2017 Documentation Cardiology Alee Awad RN Labs Only (CBC/ BMP (creat clearance 149.06) ) 08/08/2017 Documentation Cardiology Favian Smith RN Precertification (Approval for LVCORS through [employer] of [place]) 08/07/2017 Telephone Cardiology Alee Awad RN Appointment (cath & OV same day) 08/07/2017 Patient Profile Cardiology Alee Awad RN New Patient ( patient profile) 07/24/2017 Telephone Cardiology Alee Awad RN Referral (LEAN SIX SIGMA BLACK BELT - Dr. Warner) from Last 3 Months Social History Tobacco Use Types Packs/Day Years Used Date Current Every Day Smoker Alcohol Use Drinks/Week oz/Week Comments No Sex Assigned at Date Recorded Not on file Last Filed Vital Signs Vital Sign Reading Time Taken Blood Pressure 99/58 08/13/2017 7:35 AM INTERNET TECHNOLOGY MANAGER Pulse 76 08/13/2017 7:35 AM INTERNET TECHNOLOGY MANAGER Temperature 37.1 C (98.7 F) 08/13/2017 6:15 AM INTERNET TECHNOLOGY MANAGER Respiratory Rate - - Oxygen Saturation 97% 08/13/2017 7:35 AM INTERNET TECHNOLOGY MANAGER Inhaled Oxygen - - Concentration Weight 87.5 kg (192 lb 14.4 oz) 08/12/2017 8:13 AM INTERNET TECHNOLOGY MANAGER Height 162.6 cm (5' 4.02") 08/12/2017 8:13 AM INTERNET TECHNOLOGY MANAGER Body Mass Index 33.1 08/12/2017 8:13 AM INTERNET TECHNOLOGY MANAGER Plan of Treatment Health Maintenance Due Date Last Done Comments PHYSICAL (COMPREHENSIVE) 1979 EXAM PERTUSSIS VACCINE 1983 TETANUS VACCINE 1989 INFLUENZA VACCINE 03/26/2017 Procedures Procedure Name Priority Date/Time Associated Diagnosis Comments TELEMETRY STRIPS-SCAN 08/21/2017 Results for this 2:42 PM INTERNET TECHNOLOGY MANAGER procedure are in the results section. PROCEDURE RECORD-SCAN 08/21/2017 Results for this 1:47 PM INTERNET TECHNOLOGY MANAGER procedure are in the results section. ECG-SCAN 08/21/2017 Results for this 10:46 AM INTERNET TECHNOLOGY MANAGER procedure are in the results section. ECG-SCAN 08/13/2017 Results for this 7:30 AM INTERNET TECHNOLOGY MANAGER procedure are in the results section. ECG-SCAN 08/12/2017 Results for this 9:40 PM INTERNET TECHNOLOGY MANAGER procedure are in the results section. from [...] Boo Pretty MD - 08/12/2017 3:12 PM INTERNET TECHNOLOGY MANAGER [facility] CARDIAC CATHETERIZATION REPORT Page 3 HOANG Piedra : 1970 KU#: [id number] MR #/Billing ID #: [id number] / [id number] DATE: 08/12/2017 FISH BUTCHER: Seth Warner MD DICTATING PROVIDER: Boo Pretty MD REFERRING PHYSICIAN: MARTHA FLOWERS INTERVENTIONAL JUNIOR SALES REPRESENTATIVE: Boo Pretty MD. PROCEDURES PERFORMED: 1. Selective right and left coronary angiograms with dual arterial injections. 2. Bilateral groin accesses, both 7-Moldovan common femoral arterial. 3. Dual coronary injections. 4. Chronic Total Occlusion (LEAN SIX SIGMA BLACK BELT) PCI of the proximal right RCA extending into the right PLV with 3 drug-eluting stents in overlapping fashion with antegrade wire escalation technique. 5. Right common femoral angiogram, limited. INDICATION FOR THE PROCEDURE: Hoang Linda is a pleasant, 47-year-old gentleman with a history of recent rhr-[id number] NM, status post PCI to his left circumflex extending into his obtuse marginal with a Resolute Integrity stent from an outside institution. There was an attempted antegrade PCI on his RCA LEAN SIX SIGMA BLACK BELT, which was unsuccessful. We would like to [...] PROCEDURE: The patient was brought in the labor and employment paralegal in the fasting, nonsedated state. After giving the patient a total of 225 mcg of fentanyl and 5 mg of Versed, we achieved moderate conscious sedation, which was monitored and maintained throughout the procedure for a total of 126 minutes. Respiratory, hemodynamic, and neurological parameters were monitored throughout the procedure by the operators and by the labor and employment paralegal staff. The patient was prepped and draped in sterile fashion. We exposed bilateral groins and prepped with 1% chlorhexidine and instilled a total of 20 mL of 1% lidocaine for good local anesthesia in both groins. We then gained access into the right common femoral artery using a micropuncture needle and modified Seldinger technique to insert a 7-Moldovan 10 cm arterial sheath with good blood flow return. Similar technique was adopted to gain access to the left common femoral artery with the same 7-Moldovan 10 cm arterial sheath. We went in with the intent to perform a retrograde LEAN SIX SIGMA BLACK BELT PCI, and hence, we obtained dual coronary [...] OCCLUSION): 1. We used an EBU 3.75, 7-Moldovan guide catheter to engage the left main, while we used an AL1, 7-Moldovan guide catheter to engage the RCA for [...] approach. 3. We then switched the AL1, 7-Moldovan guide for a Hockey-Stick 1, 6-Moldovan guide, given the fact that an AL1 [...] not. We then switched out for a Leather Worker 200, 0.014 x 300 cm wire and [...] the right PLV and switched out the Leather Worker 200 wire for an 0.014 x 300 [...] the distal edge of the stent with rastafari of RUSLAN- 3 flow to the PLV. [...] complications, and was transferred out of the labor and employment paralegal in stable condition without any chest pain. Dr. Warner, my attending, was scrubbed and performed mccloud portions of the procedure and supervised the rest of it as well. TOTAL CONTRAST USED: 340 mL. TOTAL AIR KERMA: 3528 mGy. Right common femoral angiogram demonstrated a high bifurcation of the right side , and hence, we opted for manual compression method. LESION CHARACTERISTICS: 1. RCA LEAN SIX SIGMA BLACK BELT ACC/AHA type C lesion. 2. RUSLAN 0 [...] Coumadin x 12 months. Seth Warner MD PCG/Cayetano /[id number] cc: - MARTHA LFOWERS * ECG-SCAN (08/13/2017 7:30 AM) Narrative Ordered by an unspecified provider. * PROTIME INR (PT) (08/13/2017 3:45 AM) Only the most recent of 2 results within the time period is included. Component Value Ref Range INR 1.1 0.8 - 1.2 Specimen Performing Laboratory [facility] [address] [place] [address] * CBC (08/13/2017 3:45 AM) Only the [...] Performing Laboratory [facility] [address] [place] [address] * BASIC METABOLIC PANEL (08/13/2017 3:45 AM) [...] Pharmacist for questions. Specimen Performing Laboratory [facility] [address] [place] [address] * ECG-SCAN (08/12/2017 9:40 PM) Narrative Ordered by an unspecified provider. * POC ACTIVATED CLOTTING TIME (08/12/2017 4:49 PM) Only the most recent of 8 results within the time period is included. Component Value Ref Range Activated Clotting Time 162 s Specimen Performing Laboratory [facility] [address] [place] [address] from Last 3 Months
--- OUTSIDE RECORDS SUMMARY | 2017-09-22 23:07 | XMS REPORT | Encounter Summary ---
Author Author [facility] Organization [facility] Address Unknown Phone Unavailable Care Team Providers Care Metal Sheet Roller Operator Name Role Phone Jayro Duran MD 21 John Flowers MD PCP Reason for Visit * Reason Comments Records Request cath report faxed to Dr. Duran's office Encounter Details Date Type Department Care Team Description 09/02/2017 Telephone [facility] Cardiology Alee Awad RN Records Request (cath [address] [place] report faxed to Dr. Hope [facility] Roger's office) [place] [address] Social History Tobacco Use Types Packs/Day Years Used Date Current Every Day Smoker Alcohol Use Drinks/Week oz/Week Comments No Sex Assigned at Date Recorded Not on file as of this encounter Miscellaneous Notes * Telephone Encounter - Alee Awad RN - 09/02/2017 5:16 PM HEALTH AND WELLNESS COORDINATOR Voicemail received from Malgorzata with Dr. Duran's office in [place]. She is requesting pt's cath report. Faxed to Dr. Duran as requested. in this encounter Plan of Treatment Not on fileas of this encounter Visit Diagnoses Not on filein this encounter
--- OUTSIDE RECORDS SUMMARY | 2017-09-22 23:07 | XMS REPORT | Continuity of Care Document ---
Author Author [facility] Organization [facility] Address Unknown Phone Unavailable Care Team Providers Care Software Applications Engineer Name Role Phone [employer] Unavailable Unavailable Problems Medications Allergies, Adverse Reactions, Alerts Immunizations Results Vital Signs Encounters Location Location Details Encounter Type Encounter Number Reason For Visit Attending Provider ADM Date DC Date Status Source SPECIMEN [id number] 08/12/2017 08/12/2017 Active [facility] SPECIMEN [id number] 08/12/2017 08/12/2017 Active [facility] O Active [facility] Procedures Plan of Care Social History Assessment and Plan Family History Advance Directives Functional Status
--- OUTSIDE RECORDS SUMMARY | 2017-09-22 23:08 | XMS REPORT | Encounter Summary ---
Author Author [facility] Organization [facility] Address Unknown Phone Unavailable Care Team Providers Care Customs House Broker Name Role Phone Jayro Duran MD 21 John Flowers MD PCP Reason for Visit * Auth/Cert (Routine) Status Reason Specialty Diagnoses / Referred By Referred To Procedures Contact Contact Encounter Details Date Type Department Care Team Description 08/12/2017 [facility] Luna Dee APRN Atherosclerotic heart Encounter [address] [place] [address] [address] [place] [address] unspecified angina [phone] pectoris ([facility]) Social History Tobacco Use Types Packs/Day Years [...] Pain. Max of 3 tablets, call 911. [place]-3 Acid Ethyl Esters Take 1 g by [...] Take Coronary artery disease with food. involving [place] coronary artery of [place] heart with angina pectoris (HCC), Ischemic cardiomyopathy, [...] 1.2 Specimen Performing Laboratory [facility] [address] [place] [address] in this encounter Visit Diagnoses Not on filein this encounter Admitting Diagnoses Diagnosis Atherosclerotic heart disease of [place] coronary artery with unspecified angina pectoris (HCC) Atherosclerotic heart disease of [place] coronary artery with unspecified angina pectoris
--- OUTSIDE RECORDS SUMMARY | 2017-09-22 23:08 | XMS REPORT | Encounter Summary ---
Author Author [facility] Organization [facility] Address Unknown Phone Unavailable Care Team Providers Care Records Analysis Manager Name Role Phone Jayro Duran MD 21 John Flowers MD PCP Encounter Details Date Type Department Care Team Description 08/12/2017 Orders Only [facility] Alee Awad, digester cook anticoagulation [address] (Primary Dx) [address] [place] [address] Social History Tobacco Use Types Packs/Day Years Used Date Current Every Day Smoker Alcohol Use Drinks/Week oz/Week Comments No Sex Assigned at Date Recorded Not on file as of this encounter Plan of Treatment Not on fileas of this encounter Visit Diagnoses Diagnosis Chronic anticoagulation - Primary Long-term (current) use of anticoagulants
--- OUTSIDE RECORDS SUMMARY | 2017-09-22 23:08 | XMS REPORT | Encounter Summary ---
Author Author [facility] Organization [facility] Address Unknown Phone Unavailable Care Team Providers Care Bus Driver Supervisor Name Role Phone Jayro Duran MD [address] John Flowers MD PCP Encounter Details Date Type Department Care Team Description 08/12/2017 Procedure Pass Card[facility] Catheter[facility] [address] [place] [address] Social History Tobacco Use Types Packs/Day Years Used Date Current Every Day Smoker Alcohol Use Drinks/Week oz/Week Comments No Sex Assigned at Date Recorded Not on file as of this encounter Plan of Treatment Not on fileas of this encounter Visit Diagnoses Not on filein this encounter
--- OUTSIDE RECORDS SUMMARY | 2017-09-22 23:08 | XMS REPORT | Encounter Summary ---
Author Author [facility] Organization [facility] Address Unknown Phone Unavailable Care Team Providers Care Regional Production Manager Name Role Phone Jayro Duran MD 21 Martha Flowers MD PCP Reason for Visit * Auth/Cert (Routine) Status Reason Specialty Diagnoses / Referred By Referred To Procedures Contact Contact Encounter Details Date Type Department Care Team Description 08/12/2017 Hospital Cardiac Catheterization Fredrick Warner MD Coronary artery disease - Encounter Laboratory [address] involving big lagoon coronary 08/13/[address] [place] [address] artery [place] [address] [place] [address] with angina pectoris [phone] (HCC) Social History Tobacco Use Types Packs/Day Years Used Date Current Every Day Smoker Alcohol Use Drinks/Week oz/Week Comments No Sex Assigned at Date Recorded Not on file as of this encounter Last Filed Vital Signs Vital Sign Reading Time Taken Blood Pressure 99/58 08/13/2017 7:35 AM PUBLIC SAFETY TEACHER Pulse 76 08/13/2017 7:35 AM PUBLIC SAFETY TEACHER Temperature 37.1 C (98.7 F) 08/13/2017 6:15 AM PUBLIC SAFETY TEACHER Respiratory Rate - - Oxygen Saturation 97% 08/13/2017 7:35 AM PUBLIC SAFETY TEACHER Inhaled Oxygen - - Concentration Weight 87.5 kg (192 lb 14.4 oz) 08/12/2017 8:13 AM PUBLIC SAFETY TEACHER Height 162.6 cm (5' 4.02") 08/12/2017 8:13 AM PUBLIC SAFETY TEACHER Body Mass Index 33.1 08/12/2017 8:13 AM PUBLIC SAFETY TEACHER in this encounter Discharge Summaries * Karlie Victor PA-C - 08/13/2017 8:00 AM PUBLIC SAFETY TEACHER Formatting of this note may be different from the original. Physician Discharge Summary Name: Hoang Linda Date Of : 1970 Age: 47 years Admit date: 08/12/2017 Discharge date: 08/13/2017 Attending Physician: Dr. 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 Successful PCI with a Resolute Integrity 2.5 x 26 mm stent to the OM with Dr. Rhoades. Unsuccessful PCI to the RCA EMERGENCY ROOM NURSE. Pt referred to Dr. Warner for possible EMERGENCY ROOM NURSE procedure. 08/06/16 - Nuclear stress test ([facility]): No ischemia or arrhythmia on EKG. Diaphragmatic attenuation with reversible ischemia involving the mid to apic Ischemic cardiomyopathy Mild mitral regurgitation 08/07/2017 Mild tricuspid regurgitation 08/07/2017 NSTEMI (non-ST elevated myocardial infarction) ([facility]) 08/07/2017 Protein S deficiency ([facility]) 08/07/2017 Tobacco abuse 08/07/2017 Allergies: [...] He underwent PCI of OM at [facility] in [place], [place]. He was also found to have EMERGENCY ROOM NURSE of RCA. PCI was attempted which was [...] prevent stent thrombosis and possible myocardial infarction. 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 No bridging is recommended per staff to minimize bleeding complications. PT/INR on Saturday. PT/INR managed by Primary obstetrics technician. PT/ INR goal 2.0-3.0. Lipid profile as [...] allows and BP permits. F/u w/ Primary obstetrics technician as already scheduled or sooner if needed. He will continue to wear LifeVest. Currently his primary obstetrics technician is planning to repeat Echo in August. EKG NSR 72 bpm, PVC's. Non specific ST-T changes unchanged from prior. 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 Selective right and left coronary angiograms with dual arterial injections. 2. Bilateral groin accesses, both 7-Samoan common femoral arterial. 3. Dual coronary injections. 4. EMERGENCY ROOM NURSE PCI of the proximal right RCA extending [...] and restaurant foods. Call your doctor (your obstetrics technician, if you have one) if: -you gain more than 2 pounds in 24 hours. -you gain more than 5 pounds in 1 week. -any of your symptoms get worse Do NOT wait to let your doctor know about these changes. Questions About Your Stay For questions or concerns regarding your hospital stay: - DURING BUSINESS HOURS (8:00 AM - 4:30 PM): Call [phone] and asked to be transferred to your discharge attending physician. - AFTER BUSINESS HOURS (4:30 PM - 8:00 AM, on weekends, or holidays): Call [phone] and ask the spooler operator automatic to page the on-call doctor for the discharge attending physician. Discharging attending physician: FREDRICK WARNER [[id number]] Cardiac Diet Limiting unhealthy fats and cholesterol [...] discharge. Return Appointment F/u with your primary obstetrics technician as already scheduled with echo in August. [facility] Provider JEFFERY RHOADES [[id number]] Heart Failure Information You are at risk [...] 5 pounds in a week, call your obstetrics technician immediately. EARLY REPORTING OF THESE CHANGES IS [...] please call . You can also visit [email or web address] for more information. 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 PRESCRIPTION TYPE: Historical Med Herscher-3 Acid Ethyl Esters 1 gram cap Take [...] Referring physicians: Dr. Jeffery Rhoades/Dr. Jayro Duran ([place], [place]) Additional provider(s): in this encounter Discharge Instructions * Patient Instructions - Dayan Easley RN - 08/13/2017 8:32 AM PUBLIC SAFETY TEACHER Manual Sheath Removal From A Large Vein [...] to speak with someone? During Business Hours: [facility] Office at the [facility]: (Saturday-Saturday) [place]: [phone] (Saturday-Saturday) [place]: [phone] (Saturday-Saturday) [place]: [phone] (Saturday and ) [place]: [phone] (Saturday-Saturday) [place]: [phone] (Saturday-Saturday) [place]: [phone] (Saturday-) [facility]: [phone] (Saturday, Saturday and Saturday) [place]: [phone] (Saturday, Saturday and Saturday) Counts Include 234 Beds At The [facility]): [phone] (Saturday, Saturday and Saturday) Nights and Weekends [facility] Office at the [facility]: This education is meant to serve as a resource to you and your family. It is not meant to be all inclusive. The members of the [facility] at [facility], , will be glad to [...] Pain. Max of 3 tablets, call 911. Herscher-3 Acid Ethyl Esters Take 1 g by [...] Take Coronary artery disease with food. involving big lagoon coronary artery of big lagoon heart with angina pectoris (HCC), Ischemic cardiomyopathy, NSTEMI (non-ST elevated myocardial infarction) ([facility]), Tobacco abuse as of this encounter Progress Notes * Wilfredo Gardner RN - 08/13/2017 8:52 AM PUBLIC SAFETY TEACHER Cardiac Rehab Call Back Note: Spoke with patient. He will start OPCR in [place] this Saturday. Are you tolerating activity?Yes Is pain controlled?Yes Is appetite normal?Yes Are you having symptoms of heart discomfort?No Are you having signs of infection at your incision sites or groin site?No Do you want outpt cardiac rehab?Yes * Cassidy Tracy RN - 08/13/2017 8:52 AM PUBLIC SAFETY TEACHER I have reviewed the notes, assessment, and/or procedures performed by Dayan Easley RN and concur with her/his documentation unless otherwise noted. * Dayan Easley RN - 08/13/2017 8:51 AM PUBLIC SAFETY TEACHER Patient discharged to home with all belongings. Discharge instructions, med reconciliation and home wound care instructions given and explained to patient and family both verbally and written. Accompanied by family. No complaints of pain or discomfort. Bilateral groins remains clean, dry, and intact with no evidence of a hematoma after ambulation. Patient escorted to [facility] via Transport. Patient to follow up with [facility] ([facility]) or on-call physician with any additional questions or concerns. All contact numbers provided. Patient and family acceptant of DC instuctions and report understanding to all information. * Wilfredo Gardner RN - 08/13/2017 6:46 AM PUBLIC SAFETY TEACHER Formatting of this note may be different from the original. CARDIOPULMONARY REHABILITATION INPATIENT ASSESSMENT Cardiac Rehabilitation Staff: Elia Gardner RN Discharge Date: Demographics Pre-admit Dx: Date of Admission: 08/12/2017 Room: [address] : 1970 Insurance: Primary: BC/BS of Secondary: . 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 Labs No results found for: CHOL, TRIG, HDL, LDL, HGBA1C, A1C, TNI Heart Resource Manual Given: 08/13/17 Teaching Completed: 08/13/17 Outpatient Cardiopulmonary Rehabilitation OPCR: Yes Referral Faxed to: [place], [place] Date Faxed: 08/13/17 (Currently enrolled. Update faxed to [facility]) Location: [place], [place] If [facility], Sent to Staff: Wilfredo Gardner RN 08/13/2017 * Wilfredo Gardner, LILA - 08/13/2017 6:44 AM PUBLIC SAFETY TEACHER Introduced self to patient and gave copy of the Heart Resource Manual pertaining to coronary interventions. He is currently enrolled in the program at [facility] in [place], [place] and will continue when cleared by obstetrics technician. I have faxed an update to [facility]. * Dayan Easley, RN - 08/12/2017 5:57 PM PUBLIC SAFETY TEACHER Formatting of this note may be different [...] Boo Pretty MD - 08/12/2017 5:53 PM PUBLIC SAFETY TEACHER Mr. Linda was seen and examined in CTR after the EMERGENCY ROOM NURSE PCI with a full metal jacket stenting [...] asymptomatic at this juncture. Bilateral sheaths 7 Samoan have been removed with excellent hemostasis. This appears to be a significant vagal response associated with sheath pull. I do not suspect any bleeding at this point in time. Please call me if his clinical status changes. Boo Pretty M.D. Fellow in Interventional Cardiology Beeper # [phone] * Cassidy Tracy RN - 08/12/2017 4:45 PM PUBLIC SAFETY TEACHER I have reviewed the notes, assessment, and/or procedures performed by Dayan Easley RN and concur with her/his documentation unless otherwise noted. * Karlie Victor PA-C - 08/12/2017 3:04 PM PUBLIC SAFETY TEACHER S/p 3 KENNEDY to RCA. Recent NSTEMI [...] DC home in am. F/u with Primary obstetrics technician as already scheduled or sooner if needed. Maximize treatment for LVD with GDMT as pt. Can tolerate, renal function allows and BP permits. Karlie Victor PA-C (pgr [phone]) * Denisse Vidal, RT - 08/12/2017 11:12 AM PUBLIC SAFETY TEACHER Formatting of this note may be different [...] Date: 08/12/2017 [place] AC=Airway clearance AM=Aerosolized medication BA=Irwin aerosol DB&C=Deep breathe & cough FEV1=Forced expiratory volume in first second) IC=Inspiratory capacity LE=Lung expansion MDI=Metered dose inhaler Neb=Nebulizer O2=Oxygen Oxim=Oximetry PEFR=Peak expiratory flow rate TURKEY EGG GATHERER=Rapid Response Team * Dayan Easley, RN - 08/12/2017 8:01 AM PUBLIC SAFETY TEACHER Patient arrived on unit via ambulation accompanied by RN. Patient transferred to the bed without assistance. Assessment completed, refer to flowsheet for details. Orders released, reviewed, and implemented as appropriate. Oriented to surroundings, call light within reach. Plan of care reviewed. Will continue to monitor and assess. in this encounter H&P Notes * Karlie Victor PA-C - 08/12/2017 9:37 AM PUBLIC SAFETY TEACHER Formatting of this note may be different [...] which is occluded proximally. 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 Successful PCI with a Resolute Integrity 2.5 x 26 mm stent to the OM with Dr. Rhoades. Unsuccessful PCI to the RCA EMERGENCY ROOM NURSE. Pt referred to Dr. Warner for possible EMERGENCY ROOM NURSE procedure. 08/06/16 - Nuclear stress test ([facility]): No ischemia or arrhythmia on EKG. Diaphragmatic attenuation with reversible ischemia involving the mid to apical inferior wall and inferolateral wall. Normal left ventricular size with mild hypokinesis at the lateral wall. EF 50%. Previous history of Promus stent placement to - date unknown. NSTEMI (non-ST elevated myocardial infarction) ([facility]) 08/07/2017 07/12/17 at [facility] in [place], [place]. Tobacco abuse 08/07/2017 Ischemic cardiomyopathy 08/07/2017 07/12/17 - Echo ([facility]): EF 30-35%. Left ventricular cavity size increased. Wall thickness normal. Regional wall motion abnormalities. Akinesis of the inferior myocardium. Akinesis of the lateral myocardium. 07/12/17 - NSTEMI - EF 20%, severe left ventricular systolic function (per cath report). Life Vest applied for primary prevention of sudden cardiac . Mild mitral regurgitation 08/07/2017 Mild tricuspid regurgitation 08/07/2017 Protein S deficiency ([facility]) 08/07/2017 On warfarin. Review of [...] Diagnoses Name Primary? 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 Max of 3 tablets, call 911. Herscher-3 Acid Ethyl Esters 1 gram cap Take [...] Boo Pretty MD - 08/12/2017 3:12 PM PUBLIC SAFETY TEACHER Associated Order(s): CARDIAC CATH REPORT [facility] CARDIAC CATHETERIZATION REPORT Page 3 HOANG Piedra : 1970 [facility]#: [id number] [facility] MR #/Billing ID #: [id number] / [id number] DATE: 08/12/2017 CLOTH CLASSER: Fredrick Warner MD DICTATING PROVIDER: Boo Pretty MD REFERRING PHYSICIAN: MARTHA FLOWERS INTERVENTIONAL DIRECTOR LIFE SALES: Boo Pretty MD. PROCEDURES PERFORMED: 1. Selective right and left coronary angiograms with dual arterial injections. 2. Bilateral groin accesses, both 7-Samoan common femoral arterial. 3. Dual coronary injections. 4. Chronic Total Occlusion (EMERGENCY ROOM NURSE) PCI of the proximal right RCA extending into the right PLV with 3 drug-eluting stents in overlapping fashion with antegrade wire escalation technique. 5. Right common femoral angiogram, limited. INDICATION FOR THE PROCEDURE: Hoang Linda is a pleasant, 47-year-old gentleman with a history of recent [id number] PA, status post PCI to his left circumflex extending into his obtuse marginal with a Resolute Integrity stent from an outside institution. There was an attempted antegrade PCI on his RCA EMERGENCY ROOM NURSE, which was unsuccessful. We would like to [...] PROCEDURE: The patient was brought in the rd lab technician in the fasting, nonsedated state. After giving the patient a total of 225 mcg of fentanyl and 5 mg of Versed, we achieved moderate conscious sedation, which was monitored and maintained throughout the procedure for a total of 126 minutes. Respiratory, hemodynamic, and neurological parameters were monitored throughout the procedure by the operators and by the rd lab technician staff. The patient was prepped and draped in sterile fashion. We exposed bilateral groins and prepped with 1% chlorhexidine and instilled a total of 20 mL of 1% lidocaine for good local anesthesia in both groins. We then gained access into the right common femoral artery using a micropuncture needle and modified Seldinger technique to insert a 7-Samoan 10 cm arterial sheath with good blood flow return. Similar technique was adopted to gain access to the left common femoral artery with the same 7-Samoan 10 cm arterial sheath. We went in with the intent to perform a retrograde EMERGENCY ROOM NURSE PCI, and hence, we obtained dual coronary [...] OCCLUSION): 1. We used an EBU 3.75, 7-Samoan guide catheter to engage the left main, while we used an AL1, 7-Samoan guide catheter to engage the RCA for [...] approach. 3. We then switched the AL1, 7-Samoan guide for a Hockey-Stick 1, 6-Samoan guide , given the fact that an [...] not. We then switched out for a Right Of Way Cutter 200, 0.014 x 300 cm wire and [...] the right PLV and switched out the Right Of Way Cutter 200 wire for an 0.014 x 300 [...] the distal edge of the stent with sikhism of RUSLAN- 3 flow to the PLV. [...] complications, and was transferred out of the rd lab technician in stable condition without any chest [...] manual compression method. LESION CHARACTERISTICS: 1. RCA EMERGENCY ROOM NURSE ACC/AHA type C lesion. 2. RUSLAN 0 [...] continuing Plavix and Coumadin x 12 months. Fredrikc Warner MD PCG/MedQ /[id number] cc: - MARTHA FLOWERS in this encounter Plan of Treatment Not on fileas of this encounter Procedures Procedure Name Priority Date/Time Associated Diagnosis Comments TELEMETRY STRIPS-SCAN 08/21/2017 Results for this 2:42 PM PUBLIC SAFETY TEACHER procedure are in the results section. PROCEDURE RECORD-SCAN 08/21/2017 Results for this 1:47 PM PUBLIC SAFETY TEACHER procedure are in the results section. ECG-SCAN 08/21/2017 Results for this 10:46 AM PUBLIC SAFETY TEACHER procedure are in the results section. ECG-SCAN 08/13/2017 Results for this 7:30 AM PUBLIC SAFETY TEACHER procedure are in the results section. ECG-SCAN 08/12/2017 Results for this 9:40 PM PUBLIC SAFETY TEACHER procedure are in the results section. in [...] Boo Pretty MD - 08/12/2017 3:12 PM [facility] Cardiology at [facility] CARDIAC CATHETERIZATION REPORT Page 3 HOANG Piedra : 1970 [facility]#: [id number] MR #/Billing ID #: [id number] / [id number] DATE: 08/12/2017 CLOTH CLASSER: Fredrick Warner MD DICTATING PROVIDER: Boo Pretty MD REFERRING PHYSICIAN: MARTHA FLOWERS INTERVENTIONAL DIRECTOR LIFE SALES: Boo Pretty MD. PROCEDURES PERFORMED: 1. Selective right and left coronary angiograms with dual arterial injections. 2. Bilateral groin accesses, both 7-Samoan common femoral arterial. 3. Dual coronary injections. 4. Chronic Total Occlusion (EMERGENCY ROOM NURSE) PCI of the proximal right RCA extending into the right PLV with 3 drug-eluting stents in overlapping fashion with antegrade wire escalation technique. 5. Right common femoral angiogram, limited. INDICATION FOR THE PROCEDURE: Hoang Linda is a pleasant, 47-year-old gentleman with a history of recent [id number] PA, status post PCI to his left circumflex extending into his obtuse marginal with a Resolute Integrity stent from an outside institution. There was an attempted antegrade PCI on his RCA EMERGENCY ROOM NURSE, which was unsuccessful. We would like to [...] PROCEDURE: The patient was brought in the rd lab technician in the fasting, nonsedated state. After giving the patient a total of 225 mcg of fentanyl and 5 mg of Versed, we achieved moderate conscious sedation, which was monitored and maintained throughout the procedure for a total of 126 minutes. Respiratory, hemodynamic, and neurological parameters were monitored throughout the procedure by the operators and by the rd lab technician staff. The patient was prepped and draped in sterile fashion. We exposed bilateral groins and prepped with 1% chlorhexidine and instilled a total of 20 mL of 1% lidocaine for good local anesthesia in both groins. We then gained access into the right common femoral artery using a micropuncture needle and modified Seldinger technique to insert a 7-Samoan 10 cm arterial sheath with good blood flow return. Similar technique was adopted to gain access to the left common femoral artery with the same 7-Samoan 10 cm arterial sheath. We went in with the intent to perform a retrograde EMERGENCY ROOM NURSE PCI, and hence, we obtained dual coronary [...] OCCLUSION): 1. We used an EBU 3.75, 7-Samoan guide catheter to engage the left main, while we used an AL1, 7-Samoan guide catheter to engage the RCA for [...] approach. 3. We then switched the AL1, 7-Samoan guide for a Hockey-Stick 1, 6-Samoan guide, given the fact that an AL1 [...] not. We then switched out for a Right Of Way Cutter 200, 0.014 x 300 cm wire and [...] the right PLV and switched out the Right Of Way Cutter 200 wire for an 0.014 x 300 [...] the distal edge of the stent with sikhism of RUSLAN- 3 flow to the PLV. [...] complications, and was transferred out of the rd lab technician in stable condition without any chest [...] manual compression method. LESION CHARACTERISTICS: 1. RCA EMERGENCY ROOM NURSE ACC/AHA type C lesion. 2. RUSLAN 0 [...] x 12 months. Fredrick Warner MD PCG/MedYola /[id number] cc: - MARTHA FLOWERS * ECG-SCAN (08/13/2017 [...] Performing Laboratory Blood [facility] [address] [place] [address] * BASIC METABOLIC PANEL (08/13/2017 3:45 AM) [...] questions. Specimen Performing Laboratory Blood MAIN LAB [address] [place] [id number] * PROTIME INR (PT) (08/13/2017 3:45 AM) Component Value Ref Range INR 1.1 0.8 - 1.2 Specimen Performing Laboratory Blood [facility] [address] [place] [address] * ECG-SCAN (08/12/2017 9:40 PM) Narrative Ordered by an unspecified provider. * POC ACTIVATED CLOTTING TIME (08/12/2017 4:49 PM) Component Value Ref Range Activated Clotting Time 162 s Specimen Performing Laboratory MAIN LAB [address] [place] [address] * POC ACTIVATED CLOTTING TIME (08/12/2017 4:18 PM) Component Value Ref Range Activated Clotting Time 186 s Specimen Performing Laboratory MAIN LAB [address] [place] [address] * POC ACTIVATED CLOTTING TIME (08/12/2017 4:00 PM) Component Value Ref Range Activated Clotting Time 183 s Specimen Performing Laboratory MAIN LAB [address] [place] [address] * POC ACTIVATED CLOTTING TIME (08/12/2017 2:55 PM) Component Value Ref Range Activated Clotting Time 400 s Specimen Performing Laboratory MAIN LAB [address] [place] [address] * POC ACTIVATED CLOTTING TIME (08/12/2017 2:34 PM) Component Value Ref Range Activated Clotting Time 251 s Specimen Performing Laboratory MAIN LAB [address] [place] [address] * POC ACTIVATED CLOTTING TIME (08/12/2017 2:08 PM) Component Value Ref Range Activated Clotting Time 349 s Specimen Performing Laboratory MAIN LAB [address] [place] [address] * POC ACTIVATED CLOTTING TIME (08/12/2017 1:35 PM) Component Value Ref Range Activated Clotting Time 337 s Specimen Performing [facility] MAIN LAB [address] [place] [address] * POC ACTIVATED CLOTTING TIME (08/12/2017 1:05 PM) Component Value Ref Range Activated Clotting Time 370 s Specimen Performing Laboratory [facility] [address] [place] [address] in this encounter Visit Diagnoses Diagnosis Coronary artery disease involving [place] coronary artery of [place] heart with angina pectoris (HCC) - Primary Ischemic cardiomyopathy Other specified forms of chronic ischemic heart disease NSTEMI (non-ST elevated myocardial infarction) (HCC) Acute myocardial infarction, subendocardial infarction, episode of care unspecified Tobacco abuse Tobacco use disorder Admitting Diagnoses Diagnosis Chronic Total Occlusion CAD (coronary artery disease) Administered Medications Medication Order MAR Action Action Date Dose Rate Site aspirin chewable tablet 81 mg Given 08/13/2017 81 mg 81 mg, Oral, DAILY, First dose on Sat 08:20 PUBLIC SAFETY TEACHER 08/12/17 at 1600, Until Discontinued atorvastatin (LIPITOR) tablet 40 mg Given 08/12/2017 40 mg 40 mg, Oral, DAILY, First dose on Sat 22:24 PUBLIC SAFETY TEACHER 08/12/17 at 1300, Until Discontinued, Admission/Obs/Extended Recovery Given 08/13/2017 40 mg 08:21 PUBLIC SAFETY TEACHER carisoprodol(+) (SOMA) tablet 350 mg Given 08/12/2017 350 mg 350 mg, Oral, AT BEDTIME DAILY, First 22:24 PUBLIC SAFETY TEACHER dose on Sat08/12/17 at 2100, Until Discontinued, Admission/Obs/Extended Recovery clopiDOGrel (PLAVIX) tablet 75 mg Given 08/13/2017 75 mg 75 mg, Oral, DAILY, First dose on Sat 08:21 PUBLIC SAFETY TEACHER 08/13/17 at 0900, Until Discontinued, Clopidogrel (PLAVIX) load given in rd lab technician. This Medication can increase the risk of bleeding and may need to be held prior to surgery or invasive procedures. Consult physician in advance. gabapentin (NEURONTIN) capsule 600 mg Given 08/12/2017 600 mg 600 mg, Oral, FOUR TIMES DAILY, First 15:47 PUBLIC SAFETY TEACHER dose on Sat08/12/17 at 1300, Until Discontinued, Admission/Obs/Extended Recovery Given 08/12/2017 600 mg 22:24 PUBLIC SAFETY TEACHER Given 08/13/2017 600 mg 08:20 PUBLIC SAFETY TEACHER HYDROcodone/acetaminophen (NORCO) 5/325 Given 08/12/2017 1 tablet mg tablet 1 tablet 15:47 PUBLIC SAFETY TEACHER 1 tablet, Oral, EVERY 6 HOURS PRN, Starting Sat08/12/17 at 1156, Until Sat08/13/17 at 1052, Pain PO, TOTAL ACETAMINOPHEN DOSE NOT TO EXCEED 4GM DAILY NOTE: This is a HIGH ALERT Medication. pantoprazole DR (PROTONIX) tablet 40 mg Given 08/12/2017 40 mg 40 mg, Oral, DAILY, First dose on Sat 22:24 PUBLIC SAFETY TEACHER 08/12/17 at 2100, Until Discontinued, Do not crush or chew tablet. sacubitril/valsartan (ENTRESTO) 24/26 mg Given 08/13/2017 1 tablet tablet 1 tablet 08:21 PUBLIC SAFETY TEACHER 1 tablet, Oral, TWICE DAILY, First dose on Sat08/13/17 at 0900, Until Discontinued, Admission/Obs/Extended Recovery sodium chloride 0.9 % infusion Given - New 08/12/2017 1,000 mL 50 mL /hr 1,000 mL, 1,000 mL, Intravenous, at 50 Bag 08:38 PUBLIC SAFETY TEACHER mL/hr, CONTINUOUS, Starting Sat08/12/17 at 0815, Until Sat08/12/17 at 1458, If EF is <40%, contact CCL Charge Nurse [phone]) before initiating fluid. sodium chloride 0.9 % infusion Dose/Rate 08/12/2017 75 mL/hr 1,000 mL, Intravenous, at 75 mL/hr, Change 15:41 PUBLIC SAFETY TEACHER CONTINUOUS, Starting Sat08/12/17 at 1500, Until Sat08/13/17 at 0059, Once patient out of bed, then saline lock and DC IV fluid. Bolus from Infusion 08/12/2017 250 mL 999 mL/hr 17:30 PUBLIC SAFETY TEACHER Dose/Rate Verify 08/12/2017 75 mL/hr 17:45 PUBLIC SAFETY TEACHER warfarin (COUMADIN) tablet 7.5 mg Given 08/12/2017 7.5 mg 7.5 mg, Oral, TWO TIMES WEEKLY (Once per 22:25 PUBLIC SAFETY TEACHER day on Sat), First dose on Sat08/12/17 at 2100, Until Discontinued, NURSING: Provide patient with warfarin education leaflet and video. Do not give with cranberry juice. NOTE: This is a HIGH ALERT Medication. in this encounter
--- OUTSIDE RECORDS SUMMARY | 2017-09-22 23:08 | XMS REPORT | Encounter Summary ---
Author Author [facility] Organization [facility] Address Unknown Phone Unavailable Care Team Providers Care Cinnamon Grinder Name Role Phone Jayro Duran MD 21 John Flowers MD PCP Reason for Visit * Reason Comments Cardiac Eval * Auth/Cert (Routine) Status Reason Specialty Diagnoses / Referred By Referred To Procedures Contact Contact Encounter Details Date Type Department Care Team Description 08/12/2017 Office Visit [facility] Seth Warner MD Cardiac Eval [address] [place] [address] [place] [address] [place] [address] [phone] Social History Tobacco Use Types Packs/Day Years Used Date Current Every Day Smoker Alcohol Use Drinks/Week oz/Week Comments No Sex Assigned at Date Recorded Not on file as of this encounter Last Filed Vital Signs Vital Sign Reading Time Taken Blood Pressure 116/68 08/12/2017 7:18 AM DIE CAST ENGINEER Pulse 79 08/12/2017 7:18 AM DIE CAST ENGINEER Temperature - - Respiratory Rate - - Oxygen Saturation - - Inhaled Oxygen - - Concentration Weight 87.1 kg (192 lb) 08/12/2017 7:18 AM DIE CAST ENGINEER Height 162.6 cm (5' 4") 08/12/2017 7:18 AM DIE CAST ENGINEER Body Mass Index 32.96 08/12/2017 7:18 AM DIE CAST ENGINEER in this encounter Progress Notes * Seth Warner MD - 08/12/2017 7:15 AM DIE CAST ENGINEER Formatting of this note may be different [...] which is occluded proximally. 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 Successful PCI with a Resolute Integrity 2.5 x 26 mm stent to the OM with Dr. Rhoades. Unsuccessful PCI to the RCA MARKETING INFORMATION ANALYST. Pt referred to Dr. Warner for possible MARKETING INFORMATION ANALYST procedure. 08/06/16 - Nuclear stress test ([facility]): No ischemia or arrhythmia on EKG. Diaphragmatic attenuation with reversible ischemia involving the mid to apical inferior wall and inferolateral wall. Normal left ventricular size with mild hypokinesis at the lateral wall. EF 50%. Previous history of Promus stent placement to - date unknown. NSTEMI (non-ST elevated myocardial infarction) ([facility]) 08/07/2017 07/12/17 at [facility] in [place], [place]. Tobacco abuse 08/07/2017 Ischemic cardiomyopathy 08/07/2017 07/12/17 - Echo ([facility]): EF 30-35%. Left ventricular cavity size [...] Name Primary? 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 Max of 3 tablets, call 911. 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
--- OUTSIDE RECORDS SUMMARY | 2017-09-22 23:08 | XMS REPORT | Encounter Summary ---
Author Author [facility] Organization [facility] Address Unknown Phone Unavailable Care Team Providers Care Stone Banker Name Role Phone Jayro Duran MD 21 John Flowers MD PCP Reason for Visit * Auth/Cert (Routine) Status Reason Specialty Diagnoses / Referred By Referred To Procedures Contact Contact Encounter Details Date Type Department Care Team Description 08/12/2017 [facility] Seth Warner MD Encounter [address] [place] [address] [place] [address] [place] [address] [phone] Social History Tobacco Use Types Packs/Day Years [...] Pain. Max of 3 tablets, call 911. [place]-3 Acid Ethyl Esters Take 1 g by [...] Take Coronary artery disease with food. involving [place] coronary artery of [place] heart with angina pectoris (HCC), Ischemic cardiomyopathy, NSTEMI (non-ST elevated myocardial infarction) (HCC), Tobacco abuse aspirin EC 81 mg tablet Take 81 mg by mouth 08/13/2017 daily. Take with food. as of this encounter Plan of Treatment Not on fileas of this encounter Visit Diagnoses Not on filein this encounter
--- OUTSIDE RECORDS SUMMARY | 2017-09-22 23:09 | XMS REPORT | Encounter Summary ---
Author Author [facility] Organization [facility] Address Unknown Phone Unavailable Care Team Providers Care Health Insurance Sales Agent Name Role Phone Jayro Duran MD 21 Reason for Visit * Reason Comments Precertification Approval for LVCORS through [employer] [place] Encounter Details Date Type Department Care Team Description 08/08/2017 Documentation [facility] Favian Smith, RN Precertification [address] (Approval for LVCORS [address] through [employer] [place]) [place] [address] Social History Tobacco Use Types Packs/Day Years Used Date Current Every Day Smoker Alcohol Use Drinks/Week oz/Week Comments No Sex Assigned at Date Recorded Not on file as of this encounter Progress Notes * Favian Smith, RN - 08/08/2017 1:57 PM BUSINESS DEVELOPMENT COORDINATOR [place] with [employer] [place] for [place] [phone], confirmed benefits and eligibility: Current and active since 04/26/2016, $2750 deductible with required co-insurance of 25% to max OOP $6850, then plan will pay 100% of allowable charges. No pre-certification is required for LVCORS with PCI of V[employer] MECHANIC [phone]. Reference #[id number] in this encounter Plan of Treatment Not on fileas of this encounter Visit Diagnoses Not on filein this encounter
--- OUTSIDE RECORDS SUMMARY | 2017-09-22 23:09 | XMS REPORT | Encounter Summary ---
Author Author [facility] Organization [facility] Address Unknown Phone Unavailable Care Team Providers Care Industrial Cafeteria Manager Name Role Phone Jayro Duran MD 21 Reason for Visit * Reason Comments Referral INVESTIGATOR UTILITY BILL COMPLAINTS - Dr. Warner Encounter Details Date Type Department Care Team Description 07/24/2017 Telephone [facility] Cardiology Alee Awad utility porter (INVESTIGATOR UTILITY BILL COMPLAINTS - [address]) [facility] [address] [place] [address] Social History Tobacco Use Types Packs/Day Years Used Date Never Assessed Sex Assigned at Date Recorded Not on file as of this encounter Miscellaneous Notes * Telephone Encounter - Anali Gonzalez RN - 08/06/2017 3:26 PM MARINE ELECTRICIAN HELPER Rec'd vm from Dr. Rhoades's nurse, Dayan mcdaniels: referral for pt INVESTIGATOR UTILITY BILL COMPLAINTS PCI. Dr. Warner also advised he spoke with Dr. Rhoades and wants to proceed with OV/PCI same day. Contacted Dr. Rhoades's nurse back with this information. Nurse gave a better contact number for pt of [phone]. Msg sent to Dr. Warner's admin to work in pt for OV before PCI. Will contact pt to schedule OV and PCI. * Telephone Encounter - Alee Awad RN - 08/05/2017 2:57 PM MARINE ELECTRICIAN HELPER Voicemail received from Malgorzata - pt's last [...] Alee Awad RN - 08/01/2017 6:51 PM MARINE ELECTRICIAN HELPER Dr. Warner reviewed cath images this afternoon. [...] Alee Awad RN - 07/30/2017 11:32 AM MARINE ELECTRICIAN HELPER CD not yet received. Connected with Malgorzata at Dr. Duran's office over the phone this morning to check in. She states she will call the hospital to ensure they have been mailed. If they haven't, asked that they please be sent via [employer] overnight. She will keep us posted. Malgorzata phone: , fax: * Telephone Encounter - Alee Awad RN - 07/24/2017 3:41 PM MARINE ELECTRICIAN HELPER Per Favian, no precert is needed for the cath procedure. Will await the cath images on CD. Called Malgorzata to update her that we will plan to schedule OV and cath on the same day once Dr. Warner has reviewed the images. * Telephone Encounter - Alee Awad RN - 07/24/2017 12:14 PM MARINE ELECTRICIAN HELPER Received a referral for possible INVESTIGATOR UTILITY BILL COMPLAINTS procedure with Dr. Warner from Dr. Duran in [place], [place]. Checking with Favian about insurance precert then will schedule the patient accordingly. Prefer to schedule H&P and cath on the same day due to the patient drive and Dr. Warner's limited clinic availability and to expedite getting pt to procedure. Will await the feedback. Paper records received from LILA Mcgarry. She is sending the cath images on CD via [employer]. We will need Dr. Warner to review the images before patient is scheduled - to assess whether pt is a candidate for high risk PCI. in this encounter Plan of Treatment Not on fileas of this encounter Visit Diagnoses Not on filein this encounter
--- OUTSIDE RECORDS SUMMARY | 2017-09-22 23:09 | XMS REPORT | Encounter Summary ---
Author Author [facility] Organization [facility] Address Unknown Phone Unavailable Care Team Providers Care Bulldogger Name Role Phone Jayro Duran MD 21 Martha Flowers MD PCP Reason for Visit * Auth/Cert (Routine) Status Reason Specialty Diagnoses / Referred By Referred To Procedures Contact Contact Encounter Details Date Type Department Care Team Description 08/12/2017 Surgery Cardiac Catheterization Fredrick Warner MD Percutaneous Coronary Laboratory [address] Intervention of Chronic [address] [place] [address] [place] [address] Coronary Artery [phone] (Retrograde Approach) Social History Tobacco Use Types Packs/Day Years Used Date Current Every Day Smoker Alcohol Use Drinks/Week oz/Week Comments No Sex Assigned at Date Recorded Not on file as of this encounter Last Filed Vital Signs Vital Sign Reading Time Taken Blood Pressure 99/58 08/13/2017 7:35 AM WINDSURFING INSTRUCTOR Pulse 76 08/13/2017 7:35 AM WINDSURFING INSTRUCTOR Temperature 37.1 C (98.7 F) 08/13/2017 6:15 AM WINDSURFING INSTRUCTOR Respiratory Rate - - Oxygen Saturation 97% 08/13/2017 7:35 AM WINDSURFING INSTRUCTOR Inhaled Oxygen - - Concentration Weight 87.5 kg (192 lb 14.4 oz) 08/12/2017 8:13 AM WINDSURFING INSTRUCTOR Height 162.6 cm (5' 4.02") 08/12/2017 8:13 AM WINDSURFING INSTRUCTOR Body Mass Index 33.1 08/12/2017 8:13 AM WINDSURFING INSTRUCTOR in this encounter Discharge Summaries * Karlie Victor PA-C - 08/13/2017 8:00 AM WINDSURFING INSTRUCTOR Formatting of this note may be different from the original. Physician Discharge Summary Name: Hoang Linda Date Of : 1970 Age: 47 years Admit date: 08/12/2017 Discharge date: 08/13/2017 Attending Physician: Dr. 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 Successful PCI with a Resolute Integrity 2.5 x 26 mm stent to the OM with Dr. Rhoades. Unsuccessful PCI to the RCA TRANSACTION ADVISORY SERVICES MANAGER. Pt referred to Dr. Warner for possible TRANSACTION ADVISORY SERVICES MANAGER procedure. 08/06/16 - Nuclear stress test ([facility]): No ischemia or arrhythmia on EKG. Diaphragmatic attenuation with reversible ischemia involving the mid to apic Ischemic cardiomyopathy Mild mitral regurgitation 08/07/2017 Mild tricuspid regurgitation 08/07/2017 NSTEMI (non-ST elevated myocardial infarction) ([facility]) 08/07/2017 Protein S deficiency ([facility]) 08/07/2017 Tobacco abuse 08/07/2017 Allergies: Pcn [penicillins] [...] underwent PCI of OM at [facility] in [place], [place]. He was also found to have TRANSACTION ADVISORY SERVICES MANAGER of RCA. PCI was attempted which was [...] prevent stent thrombosis and possible myocardial infarction. OXYGEN EQUIPMENT AIDE warfarin was resumed 08/12/17. No bridging is recommended per staff to minimize bleeding complications. PT/INR on Saturday. PT/INR managed by Primary search coordinator. PT/ INR goal 2.0-3.0. Lipid profile as [...] function allows and BP permits. F/u w/ . Primary search coordinator as already scheduled or sooner if needed. He will continue to wear LifeVest. Currently his primary search coordinator is planning to repeat Echo in August. EKG NSR 72 bpm, PVC's. Non specific ST-T changes unchanged from prior. 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 Selective right and left coronary angiograms with dual arterial injections. 2. Bilateral groin accesses, both 7-Syrian common femoral arterial. 3. Dual coronary injections. 4. TRANSACTION ADVISORY SERVICES MANAGER PCI of the proximal right RCA extending [...] and restaurant foods. Call your doctor (your search coordinator, if you have one) if: -you gain more than 2 pounds in 24 hours. -you gain more than 5 pounds in 1 week. -any of your symptoms get worse Do NOT wait to let your doctor know about these changes. Questions About Your Stay For questions or concerns regarding your hospital stay: - DURING BUSINESS HOURS (8:00 AM - 4:30 PM): Call [phone] and asked to be transferred to your discharge attending physician. - AFTER BUSINESS HOURS (4:30 PM - 8:00 AM, on weekends, or holidays): Call [phone] and ask the freight elevator operator to page the on-call doctor for the discharge attending physician. Discharging attending physician: FREDRICK WARNER [[id number]] Cardiac Diet Limiting unhealthy fats and cholesterol [...] discharge. Return Appointment F/u with your primary search coordinator as already scheduled with echo in August. [facility] Provider JEFFERY RHOADES [[id number]] Heart Failure Information You are at risk [...] 5 pounds in a week, call your search coordinator immediately. EARLY REPORTING OF THESE CHANGES IS [...] please call . You can also visit [email or web address] for more information. [facility] Education about Stroke [...] even if the signs go away, call 04-26- IMMEDIATELY. Check the time so you will know when the first sign started. Current Discharge Medication List CONTINUE these medications which have been CHANGED or REFILLED Details aspirin EC 81 mg tablet Take 1 tablet by mouth daily for 7 days. Take with food. 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 PRESCRIPTION TYPE: Historical Med Clarks-3 Acid Ethyl Esters 1 gram cap Take [...] Referring physicians: Dr. Jeffery Rhoades/Dr. Jayro Duran ([place], [place]) Additional provider(s): in this encounter Discharge Instructions * Patient Instructions - Dayan Easley RN - 08/13/2017 8:32 AM WINDSURFING INSTRUCTOR Manual Sheath Removal From A Large Vein [...] to speak with someone? During Business Hours: [facility] Office at the [facility]: (Saturday-Saturday) [place]: [phone] (Saturday-Saturday) [place]: [phone] (Saturday-Saturday) [place]: [phone] (Saturday and ) [place]: [phone] (Saturday-Saturday) [place]: [phone] (Saturday-Saturday) [place]: [phone] (Saturday-) [facility]: [phone] (Saturday, Saturday and Saturday) [place]: [phone] (Saturday, Saturday and Saturday) [facility]): [phone] (Saturday, Saturday and Saturday) Nights and Weekends [facility] Office at the [facility]: [phone] This education is meant to serve as a resource to you and your family. It is not meant to be all inclusive. The members of the [facility] at [facility], , will be glad to [...] Pain. Max of 3 tablets, call 911. Clarks-3 Acid Ethyl Esters Take 1 g by [...] Take Coronary artery disease with food. involving pokagon coronary artery of pokagon heart with angina pectoris (HCC), Ischemic cardiomyopathy, NSTEMI (non-ST elevated myocardial infarction) (HCC), Tobacco abuse as of this encounter Progress Notes * Wilfredo Gardner RN - 08/13/2017 8:52 AM WINDSURFING INSTRUCTOR Cardiac Rehab Call Back Note: Spoke with patient. He will start OPCR in [place] this Saturday. Are you tolerating activity?Yes Is pain controlled?Yes Is appetite normal?Yes Are you having symptoms of heart discomfort?No Are you having signs of infection at your incision sites or groin site?No Do you want outpt cardiac rehab?Yes * Cassidy Tracy RN - 08/13/2017 8:52 AM WINDSURFING INSTRUCTOR I have reviewed the notes, assessment, and/or procedures performed by Dayan Easley RN and concur with her/his documentation unless otherwise noted. * Dayan Easley RN - 08/13/2017 8:51 AM WINDSURFING INSTRUCTOR Patient discharged to home with all belongings. Discharge instructions, med reconciliation and home wound care instructions given and explained to patient and family both verbally and written. Accompanied by family. No complaints of pain or discomfort. Bilateral groins remains clean, dry, and intact with no evidence of a hematoma after ambulation. Patient escorted to lobby via Transport. Patient to follow up with [facility] ([facility]) or on-call physician with any additional questions or concerns. All contact numbers provided. Patient and family acceptant of DC instuctions and report understanding to all information. * Wilfredo Gardner RN - 08/13/2017 6:46 AM WINDSURFING INSTRUCTOR Formatting of this note may be different from the original. CARDIOPULMONARY REHABILITATION INPATIENT ASSESSMENT Cardiac Rehabilitation Staff: Elia Gardner RN Discharge Date: Demographics Pre-admit Dx: Date of Admission: 08/12/2017 Room: [address] : 1970 Insurance: Primary: /BS of Secondary: . 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 Labs No results found for: CHOL, TRIG, HDL, LDL, HGBA1C, A1C, TNI Heart Resource Manual Given: 08/13/17 Teaching Completed: 08/13/17 Outpatient Cardiopulmonary Rehabilitation OPCR: Yes Referral Faxed to: [place] Date Faxed: 08/13/17 (Currently enrolled. Update faxed to [facility]) Location: [place], [place] If [facility], Sent to Staff: Wilfredo Gardner RN 08/13/2017 * Wilfredo Gardner, RN - 08/13/2017 6:44 AM WINDSURFING INSTRUCTOR Introduced self to patient and gave copy of the Heart Resource Manual pertaining to coronary interventions. He is currently enrolled in the program at [facility] in [place], [place] and will continue when cleared by search coordinator. I have faxed an update to [facility]. * Dayan Easley, RN - 08/12/2017 5:57 PM WINDSURFING INSTRUCTOR Formatting of this note may be different [...] Boo Pretty MD - 08/12/2017 5:53 PM WINDSURFING INSTRUCTOR Mr. Linda was seen and examined in CTR after the TRANSACTION ADVISORY SERVICES MANAGER PCI with a full metal jacket stenting [...] asymptomatic at this juncture. Bilateral sheaths 7 Syrian have been removed with excellent hemostasis. This appears to be a significant vagal response associated with sheath pull. I do not suspect any bleeding at this point in time. Please call me if his clinical status changes. Boo Pretty M.D. Fellow in Interventional Cardiology Beeper # [phone] * Cassidy Tracy RN - 08/12/2017 4:45 PM WINDSURFING INSTRUCTOR I have reviewed the notes, assessment, and/or procedures performed by Dayan Easley RN and concur with her/his documentation unless otherwise noted. * Karlie Victor PA-C - 08/12/2017 3:04 PM WINDSURFING INSTRUCTOR S/p 3 KENNEDY to RCA. Recent NSTEMI [...] DC home in am. F/u with Primary search coordinator as already scheduled or sooner if needed. Maximize treatment for LVD with GDMT as pt. Can tolerate, renal function allows and BP permits. Karlie Victor PA-C (pgr [phone]) * Denisse Vidal, RT - 08/12/2017 11:12 AM WINDSURFING INSTRUCTOR Formatting of this note may be different [...] Date: 08/12/2017 Mccloud AC=Airway clearance AM=Aerosolized medication BA=[place] aerosol DB&C=Deep breathe & cough FEV1=Forced expiratory volume in first second) IC=Inspiratory capacity LE=Lung expansion MDI=Metered dose inhaler Neb=Nebulizer O2=Oxygen Oxim=Oximetry PEFR=Peak expiratory flow rate MANUFACTURING SPECIALIST=Rapid Response Team * Dayan Easley RN - 08/12/2017 8:01 AM WINDSURFING INSTRUCTOR Patient arrived on unit via ambulation accompanied by RN. Patient transferred to the bed without assistance. Assessment completed, refer to flowsheet for details. Orders released, reviewed, and implemented as appropriate. Oriented to surroundings, call light within reach. Plan of care reviewed. Will continue to monitor and assess. in this encounter H&P Notes * Karlie Victor PA-C - 08/12/2017 9:37 AM WINDSURFING INSTRUCTOR Formatting of this note may be different [...] which is occluded proximally. 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 Successful PCI with a Resolute Integrity 2.5 x 26 mm stent to the OM with Dr. Rhoades. Unsuccessful PCI to the RCA TRANSACTION ADVISORY SERVICES MANAGER. Pt referred to Dr. Warner for possible TRANSACTION ADVISORY SERVICES MANAGER procedure. 08/06/16 - Nuclear stress test ([facility]): No ischemia or arrhythmia on EKG. Diaphragmatic attenuation with reversible ischemia involving the mid to apical inferior wall and inferolateral wall. Normal left ventricular size with mild hypokinesis at the lateral wall. EF 50%. Previous history of Promus stent placement to OM - date unknown. NSTEMI (non-ST elevated myocardial infarction) ([facility]) 08/07/2017 07/12/17 at [place]. Tobacco abuse 08/07/2017 Ischemic cardiomyopathy 08/07/2017 07/12/17 - Echo ([facility]): EF 30-35%. Left ventricular cavity size increased. Wall thickness normal. Regional wall motion abnormalities. Akinesis of the inferior myocardium. Akinesis of the lateral myocardium. 07/12/17 - NSTEMI - EF 20%, severe left ventricular systolic function (per cath report). Life Vest applied for primary prevention of sudden cardiac . Mild mitral regurgitation 08/07/2017 Mild tricuspid regurgitation 08/07/2017 Protein S deficiency ([facility]) 08/07/2017 On warfarin. Review of Systems Constitution: [...] Diagnoses Name Primary? 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 Max of 3 tablets, call 911. Clarks-3 Acid Ethyl Esters 1 gram cap Take [...] Boo Pretty MD - 08/12/2017 3:12 PM WINDSURFING INSTRUCTOR Associated Order(s): CARDIAC CATH REPORT [facility] CARDIAC CATHETERIZATION REPORT Page 3 HOANG Piedra : 1970 [facility]#: [id number] MR #/Billing ID #: [id number] / [id number] DATE: 08/12/2017 STATISTICAL ASSISTANT: Fredrick Warner MD DICTATING PROVIDER: Boo Pretty MD REFERRING PHYSICIAN: MARTHA FLOWERS INTERVENTIONAL CYCLE SPECIALIST: Boo Pretty MD. PROCEDURES PERFORMED: 1. Selective right and left coronary angiograms with dual arterial injections. 2. Bilateral groin accesses, both 7-Syrian common femoral arterial. 3. Dual coronary injections. 4. Chronic Total Occlusion (TRANSACTION ADVISORY SERVICES MANAGER) PCI of the proximal right RCA extending into the right PLV with 3 drug-eluting stents in overlapping fashion with antegrade wire escalation technique. 5. Right common femoral angiogram, limited. INDICATION FOR THE PROCEDURE: Hoang Linda is a pleasant, 47-year-old gentleman with a history of recent [id number] OR, status post PCI to his left circumflex extending into his obtuse marginal with a Resolute Integrity stent from an outside institution. There was an attempted antegrade PCI on his RCA TRANSACTION ADVISORY SERVICES MANAGER, which was unsuccessful. We would like to [...] PROCEDURE: The patient was brought in the laborer fryer farm in the fasting, nonsedated state. After giving the patient a total of 225 mcg of fentanyl and 5 mg of Versed, we achieved moderate conscious sedation, which was monitored and maintained throughout the procedure for a total of 126 minutes. Respiratory, hemodynamic, and neurological parameters were monitored throughout the procedure by the operators and by the laborer fryer farm staff. The patient was prepped and draped in sterile fashion. We exposed bilateral groins and prepped with 1% chlorhexidine and instilled a total of 20 mL of 1% lidocaine for good local anesthesia in both groins. We then gained access into the right common femoral artery using a micropuncture needle and modified Seldinger technique to insert a 7-Syrian 10 cm arterial sheath with good blood flow return. Similar technique was adopted to gain access to the left common femoral artery with the same 7-Syrian 10 cm arterial sheath. We went in with the intent to perform a retrograde TRANSACTION ADVISORY SERVICES MANAGER PCI, and hence, we obtained dual coronary [...] OCCLUSION): 1. We used an EBU 3.75, 7-Syrian guide catheter to engage the left main, while we used an AL1, 7-Syrian guide catheter to engage the RCA for [...] approach. 3. We then switched the AL1, 7-Syrian guide for a Hockey-Stick 1, 6-Syrian guide , given the fact that an [...] not. We then switched out for a Sampling Expert 200, 0.014 x 300 cm wire and [...] the right PLV and switched out the Sampling Expert 200 wire for an 0.014 x 300 [...] the distal edge of the stent with latter-day of RUSLAN- 3 flow to the PLV. [...] complications, and was transferred out of the laborer fryer farm in stable condition without any chest pain. Dr. Warner, my attending, was scrubbed and performed mccloud portions of the procedure and supervised the rest of it as well. TOTAL CONTRAST USED: 340 mL. TOTAL AIR KERMA: 3528 mGy. Right common femoral angiogram demonstrated a high bifurcation of the right side , and hence, we opted for manual compression method. LESION CHARACTERISTICS: 1. RCA TRANSACTION ADVISORY SERVICES MANAGER ACC/AHA type C lesion. 2. RUSLAN 0 [...] x 12 months. Fredrick Warner MD PCG/MedQ /[id number] cc: - MARTHA FLOWERS in this encounter Plan of Treatment Not on fileas of this encounter Procedures Procedure Name Priority Date/Time Associated Diagnosis Comments TELEMETRY STRIPS-SCAN 08/21/2017 Results for this 2:42 PM WINDSURFING INSTRUCTOR procedure are in the results section. PROCEDURE RECORD-SCAN 08/21/2017 Results for this 1:47 PM WINDSURFING INSTRUCTOR procedure are in the results section. ECG-SCAN 08/21/2017 Results for this 10:46 AM WINDSURFING INSTRUCTOR procedure are in the results section. ECG-SCAN 08/13/2017 Results for this 7:30 AM WINDSURFING INSTRUCTOR procedure are in the results section. ECG-SCAN 08/12/2017 Results for this 9:40 PM WINDSURFING INSTRUCTOR procedure are in the results section. in [...] Boo Pretty MD - 08/12/2017 3:12 PM WINDSURFING INSTRUCTOR [facility] CARDIAC CATHETERIZATION REPORT Page 3 HOANG Piedra : 1970 [facility]#: [id number] [facility] MR #/Billing ID #: [id number] / [id number] DATE: 08/12/2017 STATISTICAL ASSISTANT: Fredrick Warner MD DICTATING PROVIDER: Boo Pretty MD REFERRING PHYSICIAN: MARTHA FLOWERS INTERVENTIONAL CYCLE SPECIALIST: Boo Pretty MD. PROCEDURES PERFORMED: 1. Selective right and left coronary angiograms with dual arterial injections. 2. Bilateral groin accesses, both 7-Syrian common femoral arterial. 3. Dual coronary injections. 4. Chronic Total Occlusion (TRANSACTION ADVISORY SERVICES MANAGER) PCI of the proximal right RCA extending into the right PLV with 3 drug-eluting stents in overlapping fashion with antegrade wire escalation technique. 5. Right common femoral angiogram, limited. INDICATION FOR THE PROCEDURE: Hoang Linda is a pleasant, 47-year-old gentleman with a history of recent ifs-VY-[id number] OR, status post PCI to his left circumflex extending into his obtuse marginal with a Resolute Integrity stent from an outside institution. There was an attempted antegrade PCI on his RCA TRANSACTION ADVISORY SERVICES MANAGER, which was unsuccessful. We would like to [...] PROCEDURE: The patient was brought in the laborer fryer farm in the fasting, nonsedated state. After giving the patient a total of 225 mcg of fentanyl and 5 mg of Versed, we achieved moderate conscious sedation, which was monitored and maintained throughout the procedure for a total of 126 minutes. Respiratory, hemodynamic, and neurological parameters were monitored throughout the procedure by the operators and by the laborer fryer farm staff. The patient was prepped and draped in sterile fashion. We exposed bilateral groins and prepped with 1% chlorhexidine and instilled a total of 20 mL of 1% lidocaine for good local anesthesia in both groins. We then gained access into the right common femoral artery using a micropuncture needle and modified Seldinger technique to insert a 7-Syrian 10 cm arterial sheath with good blood flow return. Similar technique was adopted to gain access to the left common femoral artery with the same 7-Syrian 10 cm arterial sheath. We went in with the intent to perform a retrograde TRANSACTION ADVISORY SERVICES MANAGER PCI, and hence, we obtained dual coronary [...] OCCLUSION): 1. We used an EBU 3.75, 7-Syrian guide catheter to engage the left main, while we used an AL1, 7-Syrian guide catheter to engage the RCA for [...] approach. 3. We then switched the AL1, 7-Syrian guide for a Hockey-Stick 1, 6-Syrian guide, given the fact that an AL1 [...] not. We then switched out for a Sampling Expert 200, 0.014 x 300 cm wire and [...] the right PLV and switched out the Sampling Expert 200 wire for an 0.014 x 300 [...] the distal edge of the stent with latter-day of RUSLAN- 3 flow to the PLV. [...] complications, and was transferred out of the laborer fryer farm in stable condition without any chest pain. Dr. Warner, my attending, was scrubbed and performed mccloud portions of the procedure and supervised the rest of it as well. TOTAL CONTRAST USED: 340 mL. TOTAL AIR KERMA: 3528 mGy. Right common femoral angiogram demonstrated a high bifurcation of the right side , and hence, we opted for manual compression method. LESION CHARACTERISTICS: 1. RCA TRANSACTION ADVISORY SERVICES MANAGER ACC/AHA type C lesion. 2. RUSLAN 0 [...] x 12 months. Fredrick Warner MD PCG/MedQ /[id number] cc: - MARTHA FLOWERS * ECG-SCAN (08/13/2017 [...] Specimen Performing Laboratory Blood MAIN LAB [address] [place] [address] * BASIC METABOLIC PANEL (08/13/2017 3:45 AM) [...] questions. Specimen Performing Laboratory Blood MAIN LAB [address] [place] [id number] * PROTIME INR (PT) (08/13/2017 3:45 AM) Component Value Ref Range INR 1.1 0.8 - 1.2 Specimen Performing Laboratory Blood MAIN LAB [address] [place] [id number] * ECG-SCAN (08/12/2017 9:40 PM) Narrative Ordered by an unspecified provider. * POC ACTIVATED CLOTTING TIME (08/12/2017 4:49 PM) Component Value Ref Range Activated Clotting Time 162 s Specimen Performing Laboratory MAIN LAB [address] [place] [id number] * POC ACTIVATED CLOTTING TIME (08/12/2017 4:18 PM) Component Value Ref Range Activated Clotting Time 186 s Specimen Performing Laboratory MAIN LAB [address] [place] [address] * POC ACTIVATED CLOTTING TIME (08/12/2017 4:00 PM) Component Value Ref Range Activated Clotting Time 183 s Specimen Performing Laboratory MAIN LAB [address] [place] [id number] * POC ACTIVATED CLOTTING TIME (08/12/2017 2:55 PM) Component Value Ref Range Activated Clotting Time 400 s Specimen Performing Laboratory MAIN LAB [address] [place] [id number] * POC ACTIVATED CLOTTING TIME (08/12/2017 2:34 PM) Component Value Ref Range Activated Clotting Time 251 s Specimen Performing Laboratory MAIN LAB [address] [place] [id number] * POC ACTIVATED CLOTTING TIME (08/12/2017 2:08 PM) Component Value Ref Range Activated Clotting Time 349 s Specimen Performing Laboratory MAIN LAB [address] [place] [id number] * POC ACTIVATED CLOTTING TIME (08/12/2017 1:35 PM) Component Value Ref Range Activated Clotting Time 337 s Specimen Performing Laboratory MAIN LAB [address] [place] [id number] * POC ACTIVATED CLOTTING TIME (08/12/2017 1:05 PM) Component Value Ref Range Activated Clotting Time 370 s Specimen Performing Laboratory [facility] [address] [place] [address] in this encounter Visit Diagnoses Not on filein this encounter Admitting Diagnoses Diagnosis Chronic Total Occlusion CAD (coronary artery disease) Administered Medications Medication Order MAR Action Action Date Dose Rate Site aspirin chewable tablet 81 mg Given 08/13/2017 81 mg 81 mg, Oral, DAILY, First dose on Sat 08:20 WINDSURFING INSTRUCTOR 08/12/17 at 1600, Until Discontinued atorvastatin (LIPITOR) tablet 40 mg Given 08/12/2017 40 mg 40 mg, Oral, DAILY, First dose on Sat 22:24 WINDSURFING INSTRUCTOR 08/12/17 at 1300, Until Discontinued, Admission/Obs/Extended Recovery Given 08/13/2017 40 mg 08:21 WINDSURFING INSTRUCTOR carisoprodol(+) (SOMA) tablet 350 mg Given 08/12/2017 350 mg 350 mg, Oral, AT BEDTIME DAILY, First 22:24 WINDSURFING INSTRUCTOR dose on Sat08/12/17 at 2100, Until Discontinued, Admission/Obs/Extended Recovery clopiDOGrel (PLAVIX) tablet 75 mg Given 08/13/2017 75 mg 75 mg, Oral, DAILY, First dose on Sat 08:21 WINDSURFING INSTRUCTOR 08/13/17 at 0900, Until Discontinued, 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 This Medication can increase the risk of bleeding and may need to be held prior to surgery or invasive procedures. Consult physician in advance. gabapentin (NEURONTIN) capsule 600 mg Given 08/12/2017 600 mg 600 mg, Oral, FOUR TIMES DAILY, First 15:47 WINDSURFING INSTRUCTOR dose on Sat08/12/17 at 1300, Until Discontinued, Admission/Obs/Extended Recovery Given 08/12/2017 600 mg 22:24 WINDSURFING INSTRUCTOR Given 08/13/2017 600 mg 08:20 WINDSURFING INSTRUCTOR HYDROcodone/acetaminophen (NORCO) 5/325 Given 08/12/2017 1 tablet mg tablet 1 tablet 15:47 WINDSURFING INSTRUCTOR 1 tablet, Oral, EVERY 6 HOURS PRN, Starting Sat08/12/17 at 1156, Until Sat08/13/17 at 1052, Pain PO, TOTAL ACETAMINOPHEN DOSE NOT TO EXCEED 4GM DAILY NOTE: This is a HIGH ALERT Medication. pantoprazole DR (PROTONIX) tablet 40 mg Given 08/12/2017 40 mg 40 mg, Oral, DAILY, First dose on Mon 22:24 WINDSURFING INSTRUCTOR 08/12/17 at 2100, Until Discontinued, Do not crush or chew tablet. sacubitril/valsartan (ENTRESTO) 24/26 mg Given 08/13/2017 1 tablet tablet 1 tablet 08:21 WINDSURFING INSTRUCTOR 1 tablet, Oral, TWICE DAILY, First dose on Sat08/13/17 at 0900, Until Discontinued, Admission/Obs/Extended Recovery sodium chloride 0.9 % infusion Given - New 08/12/2017 1,000 mL 50 mL /hr 1,000 mL, 1,000 mL, Intravenous, at 50 Bag 08:38 WINDSURFING INSTRUCTOR mL/hr, CONTINUOUS, Starting Sat08/12/17 at 0815, Until Sat08/12/17 at 1458, If EF is <40%, contact CCL Charge Nurse [phone]) before initiating fluid. sodium chloride 0.9 % infusion Dose/Rate 08/12/2017 75 mL/hr 1,000 mL, Intravenous, at 75 mL/hr, Change 15:41 WINDSURFING INSTRUCTOR CONTINUOUS, Starting Sat08/12/17 at 1500, Until Sat08/13/17 at 0059, Once patient out of bed, then saline lock and DC IV fluid. Bolus from Infusion 08/12/2017 250 mL 999 mL/hr 17:30 WINDSURFING INSTRUCTOR Dose/Rate Verify 08/12/2017 75 mL/hr 17:45 WINDSURFING INSTRUCTOR warfarin (COUMADIN) tablet 7.5 mg Given 08/12/2017 7.5 mg 7.5 mg, Oral, TWO TIMES WEEKLY (Once per 22:25 WINDSURFING INSTRUCTOR day on Sat), First dose on Sat08/12/17 at 2100, Until Discontinued, NURSING: Provide patient with warfarin education leaflet and video. Do not give with cranberry juice. NOTE: This is a HIGH ALERT Medication. in this encounter
--- OUTSIDE RECORDS SUMMARY | 2017-09-22 23:09 | XMS REPORT | Encounter Summary ---
Author Author [facility] Address Unknown Phone Unavailable Care Team Providers Care Computer Publisher Name Role Phone Jayro Duran MD 21 John Flowers MD PCP Reason for Visit * Reason Comments Labs Only CBC/BMP (creat clearance 149.06) Encounter Details Date Type Department Care Team Description 08/09/2017 Documentation [facility] Alee Awad RN Labs Only (CBC/BMP (creat [address] [place] clearance 149.06) ) [address] [place] [address] Social History Tobacco Use Types Packs/Day Years [...] RDW 13.9 Specimen Performing [place] [address] * BASIC METABOLIC PANEL (08/09/2017) Component Value Ref Range Sodium 142 Potassium 4.5 Chloride 105 CO2 27 Blood Urea Nitrogen 16 Creatinine 0.74 Glucose 100 Calcium 10.0 eGFR Non >60 eGFR Anion Gap 10 Specimen Performing [place] [address] in this encounter Visit Diagnoses Diagnosis Pre-procedure lab exam Pre-procedural laboratory examination 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
--- OUTSIDE RECORDS SUMMARY | 2017-09-22 23:09 | XMS REPORT | Encounter Summary ---
Author Author [facility] Organization [facility] Address Unknown Phone Unavailable Care Team Providers Care Crossword Puzzle Maker Name Role Phone Jayro Duran MD 21 Reason for Visit * Reason Comments Appointment cath & OV same day Encounter Details Date Type Department Care Team Description 08/07/2017 Telephone [facility] Alee Awad RN Appointment (cath & OV [address] [place] same day) [address] [place] [address] Social History Tobacco Use Types Packs/Day Years Used Date Current Every Day Smoker Alcohol Use Drinks/Week oz/Week Comments No Sex Assigned at Date Recorded Not on file as of this encounter Miscellaneous Notes * Telephone Encounter - Alee Awad RN - 08/08/2017 1:35 PM FUSE COILER FINISH MIXER cath date confirmed for this 08/12 - confirmed with Dr. Warner and with spouse. * Telephone Encounter - Alee Awad RN - 08/07/2017 2:37 PM FUSE COILER Connected with patient's spouse, Yazmin, over the [...] Alee Awad RN - 08/07/2017 2:36 PM FUSE COILER ----- Message from Meredith Yoder sent at 08/07/2017 1:23 PM FUSE COILER ----- Regarding: apt request Call pt back at [phone] Yazmin if it's before 3 in this encounter Plan of Treatment Not on fileas of this encounter Visit Diagnoses Not on filein this encounter
--- OUTSIDE RECORDS SUMMARY | 2017-09-22 23:09 | XMS REPORT | Encounter Summary ---
Author Author [facility] Organization [facility] Address Unknown Phone Unavailable Care Team Providers Care Breaker Machine Operator Name Role Phone Jayro Duran MD 21 Reason for Visit * Reason Comments New Patient patient profile Encounter Details Date Type Department Care Team Description 08/07/2017 Patient Profile [facility] Alee Awad, RN New Patient (patient [address] [place] profile) [address] [place] [address] Social History Tobacco Use Types Packs/Day Years Used Date Current Every Day Smoker Alcohol Use Drinks/Week oz/Week Comments No Sex Assigned at Date Recorded Not on file as of this encounter Plan of Treatment Not on fileas of this encounter Visit Diagnoses Diagnosis Protein S deficiency (HCC) Primary hypercoagulable state
--- OUTSIDE RECORDS SUMMARY | 2017-09-22 23:12 | XMS REPORT | Continuity of Care Document ---
Author Author Formerly [facility] Address Unknown Phone Unavailable Allergies Active Description Code Type Severity Reaction Onset Reported/Identified Relationship to Patient Clinical Status Yes Penicillins [id number] Drug Allergy Mild N/A 01/27/2009 Yes Penicillins [...] INFARCT 09/24/2012 Ot 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[place] CORON 09/24/2012 Ot 786.50 CHEST PAIN NOS [...] JEFFERY DE SOUZA MD Ot V12.51 04/01/2015 EJFFERY DE SOUZA MD Ot V58.61 04/01/2015 JEFFERY [...] NOS 01/22/2016 Ot 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[place] CORON 01/22/2016 Ot 401.9 HYPERTENSION NOS 01/22/2016 Ot 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[place] CORON 01/22/2016 Ot 428.0 CONGESTIVE HEART FAILURE NOS 01/22/2016 Ot 719.40 JOINT PAIN- UNSPEC 01/22/2016 Ot 782.3 EDEMA 01/22/2016 Ot V58.61 ANTICOAGULANTS,LT,CURRENT USE 01/22/2016 VIANEY SWEET DEPUTY CORONER INVESTIGATOR Ot F17.210 NICOTINE DEPENDENCE, CIGARETTES, UNCOMPL 01/22/2016 VIANEY SWEET DEPUTY CORONER INVESTIGATOR Ot M25.511 PAIN IN RIGHT SHOULDER 02/24/2016 JEFFERY DE SOUZA MD Ot I82.403 ACUTE EMBOLISM AND THOMBOS UNSP DEEP VEI 02/24/2016 JEFFERY DE SOUZA MD Ot 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 04/09/2016 JEFFERY DE SOUZA MD Ot I82.403 ACUTE EMBOLISM AND THOMBOS UNSP DEEP VEI 04/09/2016 JEFFERY DE SOUZA MD Ot Z79.01 [facility] (CURRENT) USE OF ANTICOAGULANT 05/22/2016 JEFFERY DE SOUZA MD Ot I82.403 ACUTE EMBOLISM AND THOMBOS UNSP DEEP VEI 05/22/2016 JEFFERY DE SOUZA MD Ot Z79.01 [facility] (CURRENT) USE OF ANTICOAGULANT 06/01/2016 Ot 414.00 CORON ATHEROSCLER NOS TYPE VESSEL, NATIV 06/01/2016 Ot 786.50 CHEST PAIN NOS 06/01/2016 Ot 397.0 TRICUSPID VALVE DISEASE 06/01/2016 Ot 414.00 CORON ATHEROSCLER NOS TYPE VESSEL, NATIV 06/01/2016 Ot 424.0 MITRAL VALVE DISORDER 06/01/2016 Ot 786.50 CHEST PAIN NOS 06/01/2016 Ot 272.4 HYPERLIPIDEMIA NEC/NOS 06/01/2016 Ot 401.9 HYPERTENSION NOS 06/01/2016 Ot 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[place] CORON 06/01/2016 Ot 401.9 HYPERTENSION NOS 06/01/2016 Ot 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[place] CORON 06/01/2016 Ot 428.0 CONGESTIVE HEART FAILURE NOS 06/01/2016 Ot 719.40 JOINT PAIN- UNSPEC 06/01/2016 Ot 782.3 EDEMA 06/01/2016 Ot V58.61 ANTICOAGULANTS,LT,CURRENT USE 06/04/2016 JEFFERY DE SOUZA MD Ot I82.403 ACUTE EMBOLISM AND THOMBOS UNSP DEEP VEI 06/04/2016 JEFFERY DE SOUZA MD Ot Z79.01 [facility] (CURRENT) USE OF ANTICOAGULANT 07/16/2016 JEFFERY DE SOUZA MD Ot I82.403 ACUTE EMBOLISM AND THOMBOS UNSP DEEP VEI 07/16/2016 JEFFERY DE SOUZA MD Ot Z79.01 [facility] (CURRENT) USE OF ANTICOAGULANT 07/26/2016 Ot 414.00 CORON ATHEROSCLER NOS TYPE VESSEL, NATIV 07/26/2016 Ot 786.50 CHEST PAIN NOS 07/26/2016 Ot 397.0 TRICUSPID VALVE DISEASE 07/26/2016 Ot 414.00 CORON ATHEROSCLER NOS TYPE VESSEL, NATIV 07/26/2016 Ot 424.0 MITRAL VALVE DISORDER 07/26/2016 Ot 786.50 CHEST PAIN NOS 07/26/2016 Ot 272.4 HYPERLIPIDEMIA NEC/NOS 07/26/2016 Ot 401.9 HYPERTENSION NOS 07/26/2016 Ot 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[place] CORON 07/26/2016 Ot 401.9 HYPERTENSION NOS 07/26/2016 Ot 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[place] CORON 07/26/2016 Ot 428.0 CONGESTIVE HEART FAILURE NOS 07/26/2016 Ot 719.40 JOINT PAIN- UNSPEC 07/26/2016 Ot 782.3 EDEMA 07/26/2016 Ot V58.61 ANTICOAGULANTS,LT,CURRENT USE 07/26/2016 JEFFERY DE SOUZA MD Ot I82.403 ACUTE EMBOLISM AND THOMBOS UNSP DEEP VEI 07/26/2016 JEFFERY DE SOUZA MD Ot 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 07/27/2016 JEFFERY DE SOUZA MD Ot I11.0 HYPERTENSIVE HEART DISEASE WITH HEART FA 07/27/2016 JEFFERY DE SOUZA MD Ot I25.10 ATHSCL HEART DISEASE OF [place] CORONARY 07/27/2016 JEFFERY DE SOUZA MD Ot I26.99 OTHER PULMONARY EMBOLISM WITHOUT ACUTE C 07/27/2016 JEFFERY D ESOUZA MD Ot I50.9 HEART FAILURE, UNSPECIFIED 07/27/2016 [...] NOS 08/06/2016 Ot 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[place] CORON 08/06/2016 Ot 401.9 HYPERTENSION NOS 08/06/2016 Ot 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[place] CORON 08/06/2016 Ot 428.0 CONGESTIVE HEART FAILURE NOS 08/06/2016 Ot 719.40 JOINT PAIN- UNSPEC 08/06/2016 Ot 782.3 EDEMA 08/06/2016 Ot V58.61 ANTICOAGULANTS,LT,CURRENT USE 08/06/2016 JEFFERY DE SOUZA MD Ot I82.403 ACUTE EMBOLISM AND THOMBOS UNSP DEEP VEI 08/06/2016 JEFFERY DE SOUZA MD Ot 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 08/06/2016 JEFFERY DE SOUZA MD Ot I11.0 HYPERTENSIVE HEART DISEASE WITH HEART FA 08/06/2016 JEFFERY DE SOUZA MD Ot I25.10 ATHSCL HEART DISEASE OF [place] CORONARY 08/06/2016 JEFFERY DE SOUZA MD Ot I26.99 OTHER PULMONARY EMBOLISM WITHOUT ACUTE C 08/06/2016 JEFFERY DE SOUZA MD Ot I50.9 HEART FAILURE, UNSPECIFIED 08/06/2016 JEFFERY DE SOUZA MD Ot I82.409 ACUTE EMBOLISM AND THOMBOS UNSP DEEP VN 08/06/2016 JEFFERY DE SOUZA MD Ot R07.9 CHEST PAIN, UNSPECIFIED 08/07/2016 JEFFERY DE SOUZA MD Ot I25.10 ATHSCL HEART DISEASE OF [place] CORONARY 08/07/2016 JEFFERY DE SOUZA MD Ot I50.9 HEART FAILURE, UNSPECIFIED 08/07/2016 JEFFERY DE SOUZA MD Ot R07.9 CHEST PAIN, UNSPECIFIED 08/07/2016 JEFFERY DE SOUZA MD Ot I25.10 ATHSCL HEART DISEASE OF [place] CORONARY 08/07/2016 JEFFERY DE SOUZA MD Ot [...] NOS 08/08/2016 Ot 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[place] CORON 08/08/2016 Ot 401.9 HYPERTENSION NOS 08/08/2016 Ot 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[place] CORON 08/08/2016 Ot 428.0 CONGESTIVE HEART FAILURE NOS 08/08/2016 Ot 719.40 JOINT PAIN- UNSPEC 08/08/2016 Ot 782.3 EDEMA 08/08/2016 Ot V58.61 ANTICOAGULANTS,LT,CURRENT USE 08/08/2016 JEFFERY DE SOUZA MD Ot I82.403 ACUTE EMBOLISM AND THOMBOS UNSP DEEP VEI 08/08/2016 JEFFERY DE SOUZA MD Ot Z79.01 [facility] (CURRENT) USE OF ANTICOAGULANT 08/08/2016 JEFFERY DE SOUZA MD Ot I11.0 HYPERTENSIVE HEART DISEASE WITH HEART FA 08/08/2016 JEFFERY DE SOUZA MD Ot I25.10 ATHSCL HEART DISEASE OF [place] CORONARY 08/08/2016 JEFFERY DE SOUZA MD Ot I26.99 OTHER PULMONARY EMBOLISM WITHOUT ACUTE C 08/08/2016 JEFFERY DE SOUZA MD Ot I50.9 HEART FAILURE, UNSPECIFIED 08/08/2016 JEFFERY DE SOUZA MD Ot I82.409 ACUTE EMBOLISM AND THOMBOS UNSP DEEP VN 08/08/2016 JEFFERY DE SOUZA MD Ot R07.9 CHEST PAIN, UNSPECIFIED 08/08/2016 JEFFERY DE SOUZA MD Ot I25.10 ATHSCL HEART DISEASE OF [place] CORONARY 08/08/2016 JEFFERY DE SOUZA MD Ot I50.9 HEART FAILURE, UNSPECIFIED 08/08/2016 JEFFERY DE SOUZA MD Ot R07.9 CHEST PAIN, UNSPECIFIED 08/08/2016 JEFFERY DE SOUZA MD Ot I11.0 HYPERTENSIVE HEART DISEASE WITH HEART FA 08/08/2016 JEFFERY DE SOUZA MD Ot I25.10 ATHSCL HEART DISEASE OF [place] CORONARY 08/08/2016 JEFFERY DE SOUZA MD Ot I26.99 OTHER PULMONARY EMBOLISM WITHOUT ACUTE C 08/08/2016 JEFFERY DE SOUZA MD Ot I50.9 HEART FAILURE, UNSPECIFIED 08/08/2016 JEFFERY DE SOUZA MD Ot I82.409 ACUTE EMBOLISM AND THOMBOS UNSP DEEP VN 08/08/2016 JEFFERY DE SOZUA MD Ot R07.9 CHEST PAIN, UNSPECIFIED 08/08/2016 JEFFERY DE SOUZA MD Ot E78.5 HYPERLIPIDEMIA, UNSPECIFIED 08/08/2016 JEFFERY DE SOUZA MD Ot F17.210 NICOTINE DEPENDENCE, CIGARETTES, UNCOMPL 08/08/2016 JEFFERY DE SOUZA MD Ot I10 ESSENTIAL (PRIMARY) HYPERTENSION 08/08/2016 JEFFERY DE SOUZA MD Ot I25.10 ATHSCL HEART DISEASE OF [place] CORONARY 08/08/2016 JEFFERY DE SOUZA MD Ot R07.89 OTHER CHEST PAIN 08/08/2016 JEFFERY DE SOUZA MD Ot R94.39 ABNORMAL RESULT OF OTHER CARDIOVASCULAR 08/08/2016 JEFFERY DE SOUZA MD Ot Z79.01 [facility] (CURRENT) USE OF ANTICOAGULANT 08/08/2016 JEFFERY DE SOUZA MD Ot Z79.899 OTHER [facility] (CURRENT) DRUG THERAPY 08/08/2016 JEFFERY DE SOUZA MD Ot Z86.718 PERSONAL HISTORY OF OTHER VENOUS THROMBO 08/08/2016 JEFFERY DE SOUZA MD Ot Z95.5 PRESENCE OF CORONARY ANGIOPLASTY IMPLANT 08/12/2016 JEFFERY DE SOUZA MD Ot I25.10 ATHSCL HEART DISEASE OF [place] CORONARY 08/12/2016 JEFFERY DE SOUZA MD Ot I50.9 HEART FAILURE, UNSPECIFIED 08/12/2016 JEFFERY DE SOUZA MD Ot R07.9 CHEST PAIN, UNSPECIFIED 08/22/2016 JEFFERY DE SOUZA MD Ot I25.10 ATHSCL HEART DISEASE OF [place] CORONARY 08/22/2016 JEFFERY DE SOUZA MD Ot I50.9 HEART FAILURE, UNSPECIFIED 08/22/2016 JEFFERY DE SOUZA MD Ot R07.9 CHEST PAIN, UNSPECIFIED 08/30/2016 JEFFERY DE SOUZA MD Ot I82.403 ACUTE EMBOLISM AND THOMBOS UNSP DEEP VEI 08/30/2016 JEFFERY DE SOUZA MD Ot Z79.01 [facility] (CURRENT) USE OF ANTICOAGULANT 08/31/2016 JEFFERY DE SOUZA MD Ot I82.403 ACUTE EMBOLISM AND THOMBOS UNSP DEEP VEI 08/31/2016 JEFFERY DE SOUZA MD Ot 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 09/13/2016 JEFFERY DE SOUZA MD Ot I82.403 ACUTE EMBOLISM AND THOMBOS UNSP DEEP VEI 09/13/2016 JEFFERY DE SOUZA MD Ot Z79.01 [facility] (CURRENT) USE OF ANTICOAGULANT 09/13/2016 JEFFERY DE SOUZA MD Ot I82.403 ACUTE EMBOLISM AND THOMBOS UNSP DEEP VEI 09/13/2016 JEFFERY DE SOUZA MD Ot 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 09/14/2016 JEFFERY DE SOUZA MD Ot I82.403 ACUTE EMBOLISM AND THOMBOS UNSP DEEP VEI 09/14/2016 JEFFERY DE SOUZA MD Ot 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 10/10/2016 JEFFERY DE SOUZA MD Ot I82.403 ACUTE EMBOLISM AND THOMBOS UNSP DEEP VEI 10/10/2016 JEFFERY DE SOUZA MD Ot Z79.01 [facility] (CURRENT) USE OF ANTICOAGULANT 11/09/2016 JEFFERY DE SOUZA MD Ot I82.403 ACUTE EMBOLISM AND THOMBOS UNSP DEEP VEI 11/09/2016 JEFFERY DE SOUZA MD Ot Z79.01 [facility] (CURRENT) USE OF ANTICOAGULANT 12/11/2016 JEFFERY DE SOUZA MD Ot I82.403 ACUTE EMBOLISM AND THOMBOS UNSP DEEP VEI 12/11/2016 JEFFERY DE SOUZA MD Ot Z79.01 [facility] (CURRENT) USE OF ANTICOAGULANT 12/12/2016 JEFFERY DE SOUZA MD Ot I82.403 ACUTE EMBOLISM AND THOMBOS UNSP DEEP VEI 12/12/2016 JEFFERY DE SOUZA MD Ot Z79.01 [facility] (CURRENT) USE OF ANTICOAGULANT 01/09/2017 Ot 414.00 CORON ATHEROSCLER NOS TYPE VESSEL, NATIV 01/09/2017 Ot 786.50 CHEST PAIN NOS 01/09/2017 Ot 397.0 TRICUSPID VALVE DISEASE 01/09/2017 Ot 414.00 CORON ATHEROSCLER NOS TYPE VESSEL, NATIV 01/09/2017 Ot 424.0 MITRAL VALVE DISORDER 01/09/2017 Ot 786.50 CHEST PAIN NOS 01/09/2017 Ot 272.4 HYPERLIPIDEMIA NEC/NOS 01/09/2017 Ot 401.9 HYPERTENSION NOS 01/09/2017 Ot 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[place] CORON 01/09/2017 Ot 401.9 HYPERTENSION NOS 01/09/2017 Ot 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[place] CORON 01/09/2017 Ot 428.0 CONGESTIVE HEART FAILURE NOS 01/09/2017 Ot 719.40 JOINT PAIN- UNSPEC 01/09/2017 Ot 782.3 EDEMA 01/09/2017 Ot V58.61 ANTICOAGULANTS,LT,CURRENT USE 01/09/2017 JEFFERY DE SOUZA MD Ot I11.0 HYPERTENSIVE HEART DISEASE WITH HEART FA 01/09/2017 JEFFERY DE SOUZA MD Ot I25.10 ATHSCL HEART DISEASE OF [place] CORONARY 01/09/2017 JEFFERY DE SOUZA MD Ot I26.99 OTHER PULMONARY EMBOLISM WITHOUT ACUTE C 01/09/2017 JEFFERY DE SOUZA MD Ot I50.9 HEART FAILURE, UNSPECIFIED 01/09/2017 JEFFERY DE SOUZA MD Ot I82.409 ACUTE EMBOLISM AND THOMBOS UNSP DEEP VN 01/09/2017 JEFFERY DE SOUZA MD Ot R07.9 CHEST PAIN, UNSPECIFIED 01/09/2017 JEFFERY DE SOUZA MD Ot I25.10 ATHSCL HEART DISEASE OF [place] CORONARY 01/09/2017 JEFFERY DE SOUZA MD Ot I50.9 HEART FAILURE, UNSPECIFIED 01/09/2017 JEFFERY DE SOUZA MD Ot R07.9 CHEST PAIN, UNSPECIFIED 01/09/2017 ROCHELLE OLIVER Ot F17.210 NICOTINE DEPENDENCE, CIGARETTES, UNCOMPL 01/09/2017 MARK HAZEL ROCHELLE L Ot R10.10 UPPER ABDOMINAL PAIN, UNSPECIFIED 01/09/2017 ROCHELLE OLIVER Ot R10.13 EPIGASTRIC PAIN 01/09/2017 ROCHELLE OLIVER Ot 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 01/09/2017 ROCHELLE OLIVER Ot Z79.82 [facility] (CURRENT) USE OF ASPIRIN 01/09/2017 ROCHELLE OLIVER Ot Z79.899 OTHER APPRENTICE COOK (CURRENT) DRUG THERAPY 01/09/2017 ROCHELLE OLIVER Ot Z95.5 PRESENCE OF CORONARY ANGIOPLASTY IMPLANT 01/11/2017 ROCHELLE OLIVER Ot F17.210 NICOTINE DEPENDENCE, CIGARETTES, UNCOMPL 01/11/2017 ROCHELLE OLIVER Ot R10.10 UPPER ABDOMINAL PAIN, UNSPECIFIED 01/11/2017 ROCHELLE OLIVER Ot R10.13 EPIGASTRIC PAIN 01/11/2017 ROCHELLE OLIVER Ot Z79.01 [facility] (CURRENT) USE OF ANTICOAGULANT 01/11/2017 ROCHELLE OLIVER Ot Z79.82 [facility] (CURRENT) USE OF ASPIRIN 01/11/2017 ROCHELLE OLIVER Ot Z79.899 OTHER APPRENTICE COOK (CURRENT) DRUG THERAPY 01/11/2017 ROCHELLE OLIVER Ot Z95.5 PRESENCE OF CORONARY ANGIOPLASTY IMPLANT 01/29/2017 NOLVIA ENRIQUE, JEFFERY Gutierrez Ot I82.403 ACUTE EMBOLISM AND THOMBOS UNSP DEEP VEI 01/29/2017 JEFFERY DE SOUZA MD Ot 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 01/31/2017 Ot 414.00 CORON ATHEROSCLER NOS TYPE VESSEL, NATIV 01/31/2017 Ot 786.50 CHEST PAIN NOS 01/31/2017 Ot 397.0 TRICUSPID VALVE DISEASE 01/31/2017 Ot 414.00 CORON ATHEROSCLER NOS TYPE VESSEL, NATIV 01/31/2017 Ot 424.0 MITRAL VALVE DISORDER 01/31/2017 Ot 786.50 CHEST PAIN NOS 01/31/2017 Ot 272.4 HYPERLIPIDEMIA NEC/NOS 01/31/2017 Ot 401.9 HYPERTENSION NOS 01/31/2017 Ot 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[place] CORON 01/31/2017 Ot 401.9 HYPERTENSION NOS 01/31/2017 Ot 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[place] CORON 01/31/2017 Ot 428.0 CONGESTIVE HEART FAILURE NOS 01/31/2017 Ot 719.40 JOINT PAIN- UNSPEC 01/31/2017 Ot 782.3 EDEMA 01/31/2017 Ot V58.61 ANTICOAGULANTS,LT,CURRENT USE 01/31/2017 JEFFERY DE SOUZA MD Ot I11.0 HYPERTENSIVE HEART DISEASE WITH HEART FA 01/31/2017 JEFFERY DE SOUZA MD Ot I25.10 ATHSCL HEART DISEASE OF [place] CORONARY 01/31/2017 JEFFERY DE SOUZA MD Ot I26.99 OTHER PULMONARY EMBOLISM WITHOUT ACUTE C 01/31/2017 JEFFERY DE SOUZA MD Ot I50.9 HEART FAILURE, UNSPECIFIED 01/31/2017 JEFFERY DE SOUZA MD Ot R07.9 CHEST PAIN, UNSPECIFIED 01/31/2017 JEFFERY DE SOUZA MD Ot I25.10 ATHSCL HEART DISEASE OF [place] CORONARY 01/31/2017 JEFFERY DE SOUZA MD Ot I50.9 HEART FAILURE, UNSPECIFIED 01/31/2017 JEFFERY DE SOUZA MD Ot R07.9 CHEST PAIN, UNSPECIFIED 03/08/2017 JEFFERY DE SOUZA MD Ot I82.403 ACUTE EMBOLISM AND THOMBOS UNSP DEEP VEI 03/08/2017 JEFFERY DE SOUZA MD Ot Z79.01 [facility] (CURRENT) USE OF ANTICOAGULANT 04/02/2017 JEFFERY DE SOUZA MD Ot I82.403 ACUTE EMBOLISM AND THOMBOS UNSP DEEP VEI 04/02/2017 JEFFERY DE SOUZA MD Ot 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 04/03/2017 JEFFERY DE SOUZA MD Ot I82.403 ACUTE EMBOLISM AND THOMBOS UNSP DEEP VEI 04/03/2017 JEFFERY DE SOUZA MD Ot 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 04/10/2017 JEFFERY DE [...] RIGHT ARM 04/13/2017 ROCHELLE OLIVER Ot 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 04/13/2017 ROCHELLE OLIVER Ot Z79.82 APPRENTICE COOK (CURRENT) USE OF ASPIRIN 04/13/2017 ROCHELLE OLIVER [...] JEFFERY DE SOUZA MD Ot Z79.899 OTHER APPRENTICE COOK (CURRENT) DRUG THERAPY 05/25/2017 JEFFERY DE SOUZA MD Ot I26.99 OTHER PULMONARY EMBOLISM WITHOUT ACUTE C 05/25/2017 JEFFERY DE SOUZA MD Ot Z51.81 ENCOUNTER FOR THERAPEUTIC DRUG LEVEL Sat05/25/2017 JEFFERY DE SOUZA MD Ot Z79.899 OTHER APPRENTICE COOK (CURRENT) DRUG THERAPY 05/31/2017 JEFFERY DE SOUZA MD Ot I26.99 OTHER PULMONARY EMBOLISM WITHOUT ACUTE C 05/31/2017 JEFFERY DE SOUZA MD Ot Z51.81 ENCOUNTER FOR THERAPEUTIC DRUG LEVEL Sat05/31/2017 JEFFERY DE SOUZA MD Ot Z79.899 OTHER APPRENTICE COOK (CURRENT) DRUG THERAPY 07/11/2017 SONIYA JAMES DO [...] DOI Ot I25.10 ATHSCL HEART DISEASE OF [place] CORONARY 07/11/2017 ERIKA BECK SONIYA Ot 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 07/11/2017 MAGALYS JAMES DOI Ot I50.20 UNSPECIFIED SYSTOLIC (CONGESTIVE) HEART 07/11/2017 ERIKA BECK SONIYA Ot K21.9 GASTRO-ESOPHAGEAL REFLUX DISEASE WITHOUT 07/11/2017 MAGALYS JAMES DOI Ot R06.2 WHEEZING 07/11/2017 MAGALYS JAMES DOI Ot 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 07/11/2017 MAGALYS JAMES [...] DOI Ot I25.10 ATHSCL HEART DISEASE OF [place] CORONARY 07/15/2017 ERIKA BECK SONIYA Ot 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 07/15/2017 ERIKA BECK SONIYA Ot I50.20 UNSPECIFIED SYSTOLIC (CONGESTIVE) HEART 07/15/2017 MAGALYS JAMES DOI Ot K21.9 GASTRO-ESOPHAGEAL REFLUX DISEASE WITHOUT 07/15/2017 SONIYA JAMES DO Ot R06.2 WHEEZING 07/15/2017 SONIYA JAMES DO Ot Z79.01 [facility] (CURRENT) USE OF ANTICOAGULANT 07/15/2017 SONIYA JAMES [...] DO Ot I25.10 ATHSCL HEART DISEASE OF [place] CORONARY 07/17/2017 SONIYA JAMES DO Ot 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 07/17/2017 SONIYA JAMES DO Ot I50.20 UNSPECIFIED SYSTOLIC (CONGESTIVE) HEART 07/17/2017 SONIYA JAMES DO Ot K21.9 GASTRO-ESOPHAGEAL REFLUX DISEASE WITHOUT 07/17/2017 SONIYA JAMES DO Ot R06.2 WHEEZING 07/17/2017 SONIYA JAMES DO Ot 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 07/17/2017 SONIYA JAMES [...] NOS 08/02/2017 Ot 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[place] CORON 08/02/2017 Ot 401.9 HYPERTENSION NOS 08/02/2017 Ot 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[place] CORON 08/02/2017 Ot 428.0 CONGESTIVE HEART FAILURE NOS 08/02/2017 Ot 719.40 JOINT PAIN- UNSPEC 08/02/2017 Ot 782.3 EDEMA 08/02/2017 Ot V58.61 ANTICOAGULANTS,LT,CURRENT USE 08/02/2017 JEFFERY DE SOUZA MD Ot I11.0 HYPERTENSIVE HEART DISEASE WITH HEART FA 08/02/2017 JEFFERY DE SOUZA MD Ot I25.10 ATHSCL HEART DISEASE OF [place] CORONARY 08/02/2017 JEFFERY DE SOUZA MD Ot I26.99 OTHER PULMONARY EMBOLISM WITHOUT ACUTE C 08/02/2017 JEFFERY DE SOUZA MD Ot I50.9 HEART FAILURE, UNSPECIFIED 08/02/2017 JEFFERY DE SOUZA MD Ot R07.9 CHEST PAIN, UNSPECIFIED 08/02/2017 JEFFERY DE SOUZA MD Ot I25.10 ATHSCL HEART DISEASE OF [place] CORONARY 08/02/2017 JEFFERY DE SOUZA MD Ot I50.9 HEART FAILURE, UNSPECIFIED 08/02/2017 JEFFERY DE SOUZA MD Ot R07.9 CHEST PAIN, UNSPECIFIED 08/02/2017 JEFFERY DE SOUZA MD Ot I82.403 ACUTE EMBOLISM AND THOMBOS UNSP DEEP VEI 08/02/2017 JEFFERY DE SOUZA MD Ot 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 08/02/2017 JEFFERY DE [...] JEFFERY DE SOUZA MD Ot Z79.899 OTHER [facility] (CURRENT) DRUG THERAPY 08/02/2017 ROCHELLE OLIVER Ot [...] FACTORS, INI 08/02/2017 ROCHELLE OLIVER Ot 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 08/02/2017 ROCHELLE OLIVER Ot Z79.82 APPRENTICE COOK (CURRENT) USE OF ASPIRIN 08/02/2017 ROCHELLE OLIVER Ot Z82.49 FAMILY HX OF ISCHEM HEART DIS AND OTH DI 08/02/2017 ROCHELLE OLIVER Ot Z95.5 PRESENCE OF CORONARY ANGIOPLASTY IMPLANT 08/06/2017 JEFFERY DE SOUZA MD Ot I26.99 OTHER PULMONARY EMBOLISM WITHOUT ACUTE C 08/06/2017 JEFFERY DE SOUZA MD Ot 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 08/06/2017 JEFFERY DE [...] NOS 08/09/2017 Ot 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[place] CORON 08/09/2017 Ot 401.9 HYPERTENSION NOS 08/09/2017 Ot 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[place] CORON 08/09/2017 Ot 428.0 CONGESTIVE HEART FAILURE NOS 08/09/2017 Ot 719.40 JOINT PAIN- UNSPEC 08/09/2017 Ot 782.3 EDEMA 08/09/2017 Ot V58.61 ANTICOAGULANTS,LT,CURRENT USE 08/09/2017 JEFFERY DE SOUZA MD Ot I11.0 HYPERTENSIVE HEART DISEASE WITH HEART FA 08/09/2017 JEFFERY DE SOUZA MD Ot I25.10 ATHSCL HEART DISEASE OF [place] CORONARY 08/09/2017 JEFFERY DE SOUZA MD Ot I26.99 OTHER PULMONARY EMBOLISM WITHOUT ACUTE C 08/09/2017 JEFFERY DE SOUZA MD Ot I50.9 HEART FAILURE, UNSPECIFIED 08/09/2017 JEFFERY DE SOUZA MD Ot R07.9 CHEST PAIN, UNSPECIFIED 08/09/2017 JEFFERY DE SOUZA MD Ot I25.10 ATHSCL HEART DISEASE OF [place] CORONARY 08/09/2017 JEFFERY DE SOUZA MD Ot I50.9 HEART FAILURE, UNSPECIFIED 08/09/2017 JEFFERY DE SOUZA MD Ot R07.9 CHEST PAIN, UNSPECIFIED 08/09/2017 JEFFERY DE SOUZA MD Ot I82.403 ACUTE EMBOLISM AND THOMBOS UNSP DEEP VEI 08/09/2017 JEFFERY DE SOUZA MD Ot 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 08/09/2017 JEFFERY DE SOUZA MD Ot I26.99 OTHER PULMONARY EMBOLISM WITHOUT ACUTE C 08/09/2017 JEFFERY DE SOUZA MD Ot Z51.81 ENCOUNTER FOR THERAPEUTIC DRUG LEVEL MON 08/09/2017 JEFFERY DE SOUZA MD Ot I26.99 OTHER PULMONARY EMBOLISM WITHOUT ACUTE C 08/09/2017 JEFFERY DE SOUZA MD Ot 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 08/09/2017 JEFFERY DE SOUZA MD Ot I50.9 HEART FAILURE, UNSPECIFIED 08/14/2017 JEFFERY DE SOUZA MD Ot I26.99 OTHER PULMONARY EMBOLISM WITHOUT ACUTE C 08/14/2017 JEFFERY DE SOUZA MD Ot Z79.01 [facility] (CURRENT) USE OF ANTICOAGULANT 08/22/2017 FREDRICK MCCAULEY MD Ot I25.119 ATHSCL HEART DISEASE OF [place] COR ART W 08/22/2017 FREDRICK MCCAULEY MD Ot Z01.812 ENCOUNTER FOR PREPROCEDURAL LABORATORY E 08/24/2017 JEFFERY DE SOUZA MD Ot I26.99 OTHER PULMONARY EMBOLISM WITHOUT ACUTE C 08/24/2017 JEFFERY DE SOUZA MD Ot 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 08/30/2017 JEFFERY DE SOUZA MD Ot I26.99 OTHER PULMONARY EMBOLISM WITHOUT ACUTE C 08/30/2017 JEFFERY DE SOUZA MD Ot 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 09/02/2017 JEFFERY DE SOUZA MD Ot I26.99 OTHER PULMONARY EMBOLISM WITHOUT ACUTE C 09/02/2017 JEFFERY DE SOUZA MD Ot Z79.01 [facility] (CURRENT) USE OF ANTICOAGULANT 09/06/2017 JEFFERY DE SOUZA MD Ot I10 ESSENTIAL (PRIMARY) HYPERTENSION 09/06/2017 JEFFERY DE SOUZA MD Ot I25.10 ATHSCL HEART DISEASE OF [place] CORONARY 09/06/2017 JEFFERY DE SOUZA MD Ot R06.00 DYSPNEA, UNSPECIFIED 09/06/2017 JEFFERY DE SOUZA MD Ot R07.89 OTHER CHEST PAIN 09/12/2017 JEFFERY DE SOUZA MD Ot I50.9 HEART FAILURE, UNSPECIFIED 09/17/2017 VIANEY SWEET APRN Ot E78.00 PURE HYPERCHOLESTEROLEMIA, UNSPECIFIED 09/17/2017 VIANEY SWEET APRN Ot I10 ESSENTIAL (PRIMARY) HYPERTENSION 09/17/2017 VIANEY SWEET APRN Ot I20.9 ANGINA PECTORIS, UNSPECIFIED 09/17/2017 VIANEY SWEET APRN Ot I25.2 OLD MYOCARDIAL INFARCTION 09/17/2017 VIANEY SWEET APRN Ot K21.9 GASTRO-ESOPHAGEAL REFLUX DISEASE WITHOUT 09/17/2017 VIANEY SWEET APRN Ot M10.9 GOUT, UNSPECIFIED 09/17/2017 VIANEY SWEET APRN Ot M79.672 PAIN IN LEFT FOOT 09/17/2017 VIANEY SWEET APRN Ot Z79.01 [facility] (CURRENT) USE OF ANTICOAGULANT 09/17/2017 VIANEY SWEET APRN Ot Z79.02 [facility] (CURRENT) USE OF ANTITHROMBOTI 09/17/2017 VAINEY SWEET APRN Ot Z79.82 APPRENTICE COOK (CURRENT) USE OF ASPIRIN 09/17/2017 VIANEY SWEET APRN Ot Z82.49 FAMILY HX OF ISCHEM HEART DIS AND OTH DI 09/17/2017 VIANEY SWEET APRN Ot Z86.718 PERSONAL HISTORY OF OTHER VENOUS THROMBO 09/17/2017 VIANEY SWEET APRN Ot Z95.5 PRESENCE OF CORONARY ANGIOPLASTY IMPLANT 09/18/2017 JEFFERY DE SOUZA MD, Ot I10 ESSENTIAL (PRIMARY) HYPERTENSION 09/18/2017 JEFFERY DE SOUZA MD, Ot I25.10 ATHSCL HEART DISEASE OF [place] CORONARY 09/18/2017 JEFFERY DE SOUZA MD, Ot R06.00 DYSPNEA, UNSPECIFIED 09/18/2017 JEFFERY DE SOUZA MD, Ot R07.89 OTHER CHEST PAIN Procedures Code Description Performed By Performed On CARDIOLOG JEFFERY DE SOUZA 01/30/2014 [id number] DILATION OF 1 COR ART WITH DRUG-ELUT INT 07/12/2017 [id number] MEASURE OF CARDIAC SAMPL PRESSURE, L H 07/12/2017 [id number] FLUOROSCOPY OF MULT COR ART USING L OSM 07/12/2017 [id number] FLUOROSCOPY OF LEFT HEART USING LOW OSMO [...] plasma calcium measurement (mass/volume) 10.0 mg/dL 8.5-10.1 Complete blood count (CBC) with automated white blood cell (WBC) differential - 09/15/17 12:45 Blood leukocytes automated count (number/volume) 18.3 10*3/uL 4.3-11.0 Blood erythrocytes automated count (number/volume) 4.57 10*6/uL 4.35-5.85 Venous blood hemoglobin measurement (mass/volume) 13.5 g/dL 13.3-17.7 Blood hematocrit (volume fraction) 40 % 40-54 Automated erythrocyte mean corpuscular volume 88 [foz_us] 80-99 Automated erythrocyte mean corpuscular hemoglobin (mass per erythrocyte) 30 pg 25-34 Automated erythrocyte mean corpuscular hemoglobin concentration measurement ( mass/volume) 34 g/dL 32-36 Automated erythrocyte distribution width ratio 14.5 % 10.0-14.5 Automated blood platelet count (count/volume) 357 10*3/uL 130-400 Automated blood platelet mean volume measurement 8.8 [foz_us] 7.4-10.4 Automated blood neutrophils/100 leukocytes 86 % 42-75 Automated blood lymphocytes/100 leukocytes 8 % 12-44 Blood monocytes/100 leukocytes 6 % 0-12 Automated blood eosinophils/100 leukocytes 1 % 0-10 Automated blood basophils/100 leukocytes 0 % 0-10 Blood neutrophils automated count (number/volume) 15.7 10*3 1.8-7.8 Blood lymphocytes automated count (number/volume) 1.4 10*3 1.0-4.0 Blood monocytes automated count (number/volume) 1.1 10*3 0.0-1.0 Automated eosinophil count 0.2 10*3/uL 0.0-0.3 Automated blood basophil count (count/volume) 0.0 10*3/uL 0.0-0.1 PT panel in platelet poor plasma by coagulation assay - 09/15/17 12:45 Prothrombin time (PT) in platelet poor plasma by coagulation assay 32.8 s 12.2-14.7 INR in platelet poor plasma or blood by coagulation assay 3.2 0.8-1.4 Whole blood basic metabolic panel - 09/15/17 12:45 Serum or plasma sodium measurement (moles/volume) 142 mmol/L 135-145 Serum or plasma potassium measurement (moles/volume) 3.6 mmol/L 3.6-5.0 Serum or plasma chloride measurement (moles/volume) 99 mmol/L 98-107 Carbon dioxide 28 mmol/L 21-32 Serum or plasma anion gap determination (moles/volume) 15 mmol/L 5-14 Serum or plasma urea nitrogen measurement (mass/volume) 10 mg/dL 7-18 Serum or plasma creatinine measurement (mass/volume) 0.89 mg/dL 0.60-1.30 Serum or plasma urea nitrogen/creatinine mass ratio 11 NRG Serum or plasma creatinine measurement with calculation of estimated glomerular filtration rate > NRG Serum or plasma glucose measurement (mass/volume) 150 mg/dL 70-105 Serum or plasma calcium measurement (mass/volume) 9.6 mg/dL 8.5-10.1 Serum or plasma uric acid measurement (mass/volume) - 09/15/17 12:45 Serum or plasma uric acid measurement (mass/volume) 5.3 mg/dL 2.6-7.2 Blood manual differential performed detection - 09/15/17 12:45 Blood monocytes/100 leukocytes 3 % NRG Manual blood segmented neutrophils/100 leukocytes 88 % NRG Blood band neutrophils/100 leukocytes 4 % NRG Manual blood lymphocytes/100 leukocytes 4 % NRG Manual eosinophils/100 leukocytes in nose 1 % NRG Manual blood basophils/100 leukocytes 0 % NRG Blood erythrocyte morphology finding identification NORMAL NRG Serum or plasma troponin i.cardiac measurement (mass/volume) - 09/15/17 12:45 Serum or plasma troponin i.cardiac measurement (mass/volume) < ng/ mL <0.30 Serum or plasma C reactive protein measurement (mass/volume) - 09/15/17 12:45 Serum or plasma C reactive protein measurement (mass/volume) 0.80 mg /dL 0.00-0.50 Erythrocyte sedimentation rate by westergren method - 09/15/17 12:45 Erythrocyte sedimentation rate by westergren method 13 mm 0-15 Encounters ACCT No. Visit Date/Time Discharge Status Pt. Type Provider Facility Loc./Unit Complaint [id number] 11/19/2014 09:47:00 11/19/2014 23:59:59 CLS Outpatient KAYY DEPUTY CORONER INVESTIGATORTRE [id number] 01/30/2014 12:54:00 01/30/2014 23:59:59 CLS Outpatient INDY DEPUTY CORONER INVESTIGATORROSALIEUTE R [id number] 11/25/2012 09:24:00 11/25/2012 23:59:59 CLS Outpatient CALVIN SCHERER DO [id number] 09/17/2017 09:08:00 09/17/2017 23:59:59 CLS Outpatient JEFFERY DE SOUZA MD Via [facility] RAD LEFT LEG PAIN [id number] 09/15/2017 11:43:00 09/15/2017 15:31:00 DIS Outpatient VIANEY SWEET APRN [facility] ER L LEG PAIN/SWELLING/HX BLOOD CLOTS [id number] 09/05/2017 10:30:00 09/05/2017 23:59:59 CLS Outpatient JEFFERY DE SOUZA MD [facility] CARD CAD, CHEST PAIN SYNDROME [id number] 09/04/2017 11:37:00 09/04/2017 23:59:59 CLS Outpatient JEFFERY DE SOUZA MD [facility] CR CHF [id number] 08/30/2017 11:00:00 08/30/2017 23:59:59 CLS Outpatient JEFFERY DE SOUZA MD [facility] LAB I26.99 [id number] 05/26/2017 07:00:00 08/24/2017 00:01:00 DIS Outpatient JEFFERY DE SOUZA MD [facility] LAB I26.99 [id number] 08/09/2017 09:16:00 08/09/2017 23:59:59 CLS Outpatient FREDRICK MCCAULEY MD [facility] LAB Z01.812 I25.119 [id number] 08/02/2017 11:24:00 08/02/2017 11:53:00 DIS Emergency ROCHELLE OLIVER [facility] ER LUMP ON CHEST [id number] 07/11/2017 17:12:00 07/15/2017 14:45:00 DIS Inpatient SONIYA JAMES DO [facility] ICU CHEST PAIN,N/V [id number] 05/09/2017 10:49:00 05/25/2017 00:01:00 DIS Outpatient JEFFERY DE SOUZA MD [facility] LAB I26.99 [id number] 04/13/2017 15:07:00 04/13/2017 17:28:00 DIS Emergency ROCHELLE OLIVER [facility] ER SWELLING IN R ARM AFTER FLU SHOT [id number] 04/09/2017 10:55:00 04/09/2017 23:59:59 CLS Outpatient JEFFERY DE SOUZA MD [facility] LAB I26.99,Z51.81 [id number] 04/03/2017 00:08:00 04/03/2017 23:59:59 CLS Preadmit JEFFERY DE SOUZA MD [facility] LAB DVT [id number] 02/20/2017 11:24:00 04/02/2017 00:01:00 DIS Outpatient JEFFERY DE SOUZA MD [facility] LAB DVT [id number] 01/09/2017 17:21:00 01/09/2017 19:18:00 DIS Emergency ROCHELLE OLIVER [facility] ER LOWER CHEST PAIN [id number] 11/28/2016 08:17:00 12/11/2016 00:01:00 DIS Outpatient JEFFERY DE SOUZA MD [facility] LAB DVT [id number] 07/02/2016 13:09:00 08/30/2016 00:01:00 DIS Outpatient JEFFERY DE SOUZA MD [facility] LAB DVT [id number] 08/08/2016 10:25:00 08/08/2016 19:55:00 DIS Outpatient JEFFERY DE SOUZA MD [facility] CATH ABN STRESS,CP,CAD [id number] 08/06/2016 07:31:00 08/06/2016 23:59:59 CLS Outpatient JEFFERY DE SOUZA MD [facility] CARD CAD, CHF, CHEST PAIN SYNDROME, DVT, HTN, PE [id number] 07/26/2016 11:12:00 07/26/2016 23:59:59 CLS Outpatient JEFFERY DE SOUZA MD [facility] CARD CAD, CHF, CHEST PAIN SYNDROME, DVT, HTN, PE [id number] 02/22/2016 13:12:00 05/22/2016 00:01:00 DIS Outpatient JEFFERY DE SOUZA MD [facility] LAB DVT [id number] 01/22/2016 14:55:00 01/22/2016 17:15:00 DIS Emergency VIANEY SWEET APRN [facility] ER R ARM PAIN [id number] 04/01/2015 09:29:00 05/25/2015 00:01:00 DIS Outpatient JEFFERY DE SOUZA MD [facility] LAB ANTICOAG THERAPY,HX PE [id number] 04/01/2015 08:34:00 04/01/2015 10:54:00 DIS Emergency JOHN MONDRAGON MD [facility] ER RIGHT FOOT PAIN/COUGH [id number] 10/27/2014 11:05:00 01/25/2015 00:01:00 DIS Outpatient JEFFERY DE SOUZA MD [facility] LAB ANTICOAG THERAPY,HX PE [id number] 06/01/2014 14:51:00 2014 00:01:00 DIS Outpatient JEFFERY DE SOUZA MD [facility] LAB ANTICOAG THERAPY,HX PE [id number] 12/07/2013 18:10:00 12/20/2013 00:01:00 DIS Outpatient JEFFERY DE SOUZA MD [facility] LAB ANTICOAG THERAPY,HX PE [id number] 05/03/2013 15:59:00 07/08/2013 00:01:00 DIS Outpatient JEFFERY DE SOUZA MD [facility] LAB ANTICOAG THERAPY,HX PE [id number] 01/09/2013 18:23:00 01/09/2013 19:22:00 DIS Emergency MENDOZA CRAWFORD MD [facility] ER LEFT ANKLE PAIN [id number] 07/06/2015 09:36:00 Document Registration [id number] 07/06/2015 09:36:00 Document Registration [id number] 07/06/2015 09:36:00 Document Registration [id number] 07/06/2015 09:36:00 Document Registration [id number] 07/06/2015 09:36:00 Document Registration [id number] 07/06/2015 09:36:00 Document Registration [id number] 07/06/2015 09:36:00 Document Registration [id number] 07/06/2015 09:36:00 Document Registration [id number] 07/06/2015 09:36:00 Document Registration [id number] 07/06/2015 09:36:00 Document Registration [id number] 07/06/2015 09:36:00 Document Registration [id number] 07/06/2015 09:36:00 Document Registration [id number] 11/25/2014 10:38:00 Document Registration [id number] 11/25/2014 10:38:00 Document Registration [id number] 11/25/2014 10:37:00 Document Registration [id number] 11/25/2014 10:37:00 Document Registration [id number] 10/31/2014 21:35:00 Document Registration [id number] 12/02/2012 16:55:00 Document Registration [id number] 11/11/2012 08:29:00 Document Registration [id number] 10/14/2012 10:36:00 Document Registration [id number] 09/24/2012 07:36:00 Document Registration [id number] 09/17/2012 10:00:00 Document Registration [id number] 09/16/2012 13:04:00 Document Registration [id number] 07/27/2012 16:16:00 Document Registration [id number] 04/30/2012 21:41:00 Document Registration [id number] 04/02/2012 12:15:00 Document Registration [id number] 11/18/2011 13:43:00 Document Registration [id number] 06/04/2011 10:15:00 Document Registration [id number] 05/23/2011 06:51:00 Document Registration [id number] 05/19/2011 08:46:00 Document Registration [id number] 01/16/2011 10:21:00 Document Registration [id number] 11/26/2010 14:37:00 Document Registration [id number] 05/17/2010 09:40:00 Document Registration [id number] 01/18/2010 17:02:00 Document Registration [id number] 12/29/2009 09:19:00 Document Registration [id number] 08/04/2009 08:28:00 Document Registration [id number] 04/28/2009 13:16:00 Document Registration [id number] 06/09/2008 08:46:00 Document Registration [id number] 05/10/2008 12:11:00 Document Registration [id number] 03/25/2008 14:03:00 Document Registration [id number] 01/03/2008 08:26:00 Document Registration [id number] 11/20/2007 09:23:00 Document Registration [id number] 10/23/2007 11:12:00 Document Registration [id number] 10/02/2007 12:14:00 Document Registration [id number] 03/27/2007 10:33:00 Document Registration [id number] 01/07/2007 14:25:00 Document Registration [id number] 11/04/2006 08:46:00 Document Registration [id number] 10/08/2006 14:49:00 Document Registration [id number] 09/02/2006 07:21:00 Document Registration [id number] 08/16/2006 08:00:00 Document Registration [id number] 07/08/2006 08:52:00 Document Registration [id number] 06/19/2006 16:48:00 Document Registration [id number] 03/27/2006 11:44:00 Document Registration [id number] 03/04/2006 09:32:00 Document Registration [id number] 02/15/2006 08:15:00 Document Registration [id number] 12/05/2005 11:33:00 Document Registration [id number] 10/03/2005 11:41:00 Document Registration
[2017-09-23] VITALS (7 sets, daily range): BP systolic 126–137; BP diastolic 64–82
[2017-09-23 00:08] LABS: BASOPHILS % (AUTO) 0 % (0-10); EOSINOPHILS # (AUTO) 0.2 10^3/uL (0.0-0.3); EOSINOPHILS % (AUTO) 2 % (0-10); HEMATOCRIT 32 % (40-54); HEMOGLOBIN 10.6 G/DL (13.3-17.7); LYMPHOCYTES # (AUTO) 1.2 X 10^3 (1.0-4.0); LYMPHOCYTES % (AUTO) 10 % (12-44); MEAN CORPUSCULAR HEMOGLOBIN 29 PG (25-34); MEAN CORPUSCULAR HGB CONC 33 G/DL (32-36); MEAN CORPUSCULAR VOLUME 87 FL (80-99); MEAN PLATELET VOLUME 9.1 FL (7.4-10.4); MONOCYTES # (AUTO) 1.2 X 10^3 (0.0-1.0); MONOCYTES % (AUTO) 10 % (0-12); NEUTROPHILS # (AUTO) 9.9 X 10^3 (1.8-7.8); NEUTROPHILS % (AUTO) 79 % (42-75); PLATELET COUNT 514 10^3/uL (130-400); RED BLOOD COUNT 3.67 10^6/uL (4.35-5.85); RED CELL DISTRIBUTION WIDTH 13.8 % (10.0-14.5); WHITE BLOOD COUNT 12.6 10^3/uL (4.3-11.0)
[2017-09-23 00:12] LABS: INR 3.4 (0.8-1.4); PROTHROMBIN TIME PATIENT 34.2 SEC (12.2-14.7)
[2017-09-23 00:19] LABS: ALANINE AMINOTRANSFERASE 19 U/L (0-55); ALBUMIN 3.5 GM/DL (3.2-4.5); ALKALINE PHOSPHATASE 80 U/L (40-136); BILIRUBIN,TOTAL 0.4 MG/DL (0.1-1.0); BUN/CREATININE RATIO 12; CALCIUM 9.6 MG/DL (8.5-10.1); CARBON DIOXIDE 29 MMOL/L (21-32); CHLORIDE 95 MMOL/L (98-107); CREATININE SERUM 0.76 MG/DL (0.60-1.30); GFR ESTIMATED > 60; GLUCOSE 115 MG/DL (70-105); POTASSIUM 3.8 MMOL/L (3.6-5.0); SODIUM 137 MMOL/L (135-145); TOTAL PROTEIN 7.8 GM/DL (6.4-8.2)
[2017-09-23 00:37] LABS: ERYTHROCYTE SEDIMENTATION RATE > 140 MM/HR (0-15)
[2017-09-23] MEDS ORDERED: morphine INJ 10 MG/ML 1ML (SYR OR VIAL) IVP STA (00:52)
--- NOTE | 2017-09-23 00:56 | ED Integumentary General ---
General Chief Complaint: Skin/Wound Problems Stated Complaint: L LEG PAIN Nursing Triage Note: PT HAS REDNESS/SWELLING/WARMTH TO L LOWER EXTREMITY. PT HAS BEEN TX FOR GOUT FOR S/S, BUT REPORTS WORSENING OVER THE LAST 24 HOURS. PT IS AFEBRILE, AND HAS HX OF DVT'S. 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 HAS HISTORY OF GOUT, BUT IS NOTHING LIKE THIS. TAKES ALLOPURINOL DAILY PT HAS HISTORY OF PE'S, AND OK X 2 WITH STENTS X 4, AND DVT. PT IS ON PLAVIX AND COUMADIN AND IS FOLLOWED BY DR DE SOUZA CALLED DR. DE SOUZA'S OFFICE AND HAD OUTPATIENT ULTRASOUND/DOPPLER OF LEFT LEG 3 DAYS AGO, AND WAS REPORTED NEGATIVE FOR DVT. DID NOT ACTUALLY SEE DR. DE SOUZA YET, BUT HAS AN APPOINTMENT ON Saturday09/24/17 FOR THIS PROBLEM PT TAKES HYDROCODONE AND IBUPROFEN DAILY FOR CHRONIC BACK PAIN . LAST DOSE OF HYDROCODONE WAS AT 2200 TONIGHT, WITHOUT RELIEF. PCP: SANDSTONE INSPECTOR REPAIRER AT [facility] IN [place] Allergies and Home Medications Allergies Coded Allergies: Penicillins (Unverified Allergy, Mild, 01/27/09) Home Medications Aspirin 81 Mg Tablet., 81 MG PO DAILY, (Reported) Atorvastatin Calcium 40 Mg Tablet, 40 MG PO DAILY, (Reported) Carisoprodol 350 Mg Tablet, 350 MG PO HS, (Reported) Clopidogrel Bisulfate 75 Mg Tablet, 75 MG PO DAILY, #30 Prescribed by: RAJANI HELMS on 07/15/17 0752 Gabapentin 600 Mg Tablet, 600 MG PO TID, (Reported) Gemfibrozil 600 Mg Tablet, 600 MG PO BID, (Reported) Hydrocodone/Acetaminophen 1 Each Tablet, 1 TAB PO TID PRN for PAIN-MODERATE, ( Reported) Lisinopril 2.5 Mg Tablet, 2.5 MG PO DAILY, (Reported) Metoprolol Succinate 25 Mg Tab.er.24h, 25 MG PO DAILY, (Reported) Only 3 Polyunsat Fatty Acids 1,000 Mg Cap, 1,000 MG PO TID, (Reported) Prednisone 20 Mg Tab, 40 MG PO DAILY for 2 Days Prescribed by: VIANEY SWEET on 09/15/17 1427 Tizanidine HCl 4 Mg Tablet, 8 MG PO TID PRN for MUSCLE SPASMS, (Reported) TAKES 2 (4MG) TABLETS Warfarin Sodium 5 Mg Tablet, 7.5 MG PO MoWe, (Reported) TAKES 1 & 1/2 (5MG) TABLETS Warfarin Sodium 5 Mg Tablet, 5 MG PO SuTuThFrSa, (Reported) Constitutional: chills, diaphoresis, fever Respiratory: no symptoms reported Cardiovascular: no symptoms reported Gastrointestinal: no symptoms reported Genitourinary: no symptoms reported Musculoskeletal: see HPI Skin: see HPI Psychiatric/Neurological: No Symptoms Reported Endocrine: No Symptoms Reported Hematologic/Lymphatic: No Symptoms Reported Past Benhqwk-Hfbwlu-Elchdc Hx Patient Social History Alcohol Use: Denies Use (USED " A KID") Recreational Drug Use: No (THC " A KID" ) Smoking Status: Former Smoker (4 PPD--QUIT 2016) Type Used: Cigarettes 2nd Hand Smoke Exposure: No Recent Foreign Travel: No Contact w/Someone Who Travel: No Recent Infectious Disease Expo: No Recent Hopitalizations: No Immunizations Up To Date Date of Pneumonia Vaccine: Jul 28, 2012 Date of Influenza Vaccine: Jun 08, 2017 Seasonal Allergies Seasonal Allergies: No Surgeries History of Surgeries: Yes (CARDIAC CATHS--STENTS X 1. LAST CATH 07/11/17 WITH STENT X 1) Surgeries: Cardiac, Coronary Stent Respiratory History of Respiratory Disorde: Yes Respiratory Disorders: Pulmonary Embolism Cardiovascular History of Cardiac Disorders: Yes (OK X 2; STENTS X 4; -NSTEMI 07/11/17 WITH 1 STENT PLACED) Cardiac Disorders: Coronary Artery Disease, Deep Vein Thrombosis, Heart Attack , High Cholesterol, Hypertension Neurological History of Neurological Disord: No Reproductive System Hx Reproductive Disorders: No Genitourinary History of Genitourinary Disor: No Gastrointestinal History of Gastrointestinal Di: Yes Gastrointestinal Disorders: Gastroesophageal Reflux Musculoskeletal History of Musculoskeletal Dis: Yes (HYDROCODONE + IBUPROFEN DAILY) Musculoskeletal Disorders: Chronic Back Pain, Gout Endocrine History of Endocrine Disorders: No HEENT History of HEENT Disorders: No Cancer History of Cancer: No Psychosocial History of Psychiatric Problem: No Integumentary History of Skin or Integumenta: No Blood Transfusions History of Blood Disorders: Yes (PROTEIN S DEFICIENCY--DVT'S AND P.E.'S AND OK X 2) Family Medical History Significant Family History: Heart Disease, Vascular Disease Physical Exam Vital Signs Vital Sign - Last 12Hours 09/22/17 23:40 Temp 98.7 Pulse 97 Resp 20 B/P (MAP) 138/77 (97) Pulse Ox 97 O2 Delivery Room Air Capillary Refill : Less Than 3 Seconds General Appearance: WD/WN, other (EXTREMELY MALODOROUS. VERY DRAMATIC--MOANING VERY LOUDLY, WHIMPERING, WHINING. APPEARS VERY IMMATURE. PT WAILING LOUDLY AND SCREAMING STAFF CLEANING SKIN TO ARMS, WITH ALCOHOL WIPES PRIOR TO ATTEMPTING IV START/BLOOD DRAW. ) Cardiovascular: regular rate, rhythm, no murmur Respiratory: normal breath sounds, no respiratory distress, no accessory muscle use Gastrointestinal: normal bowel sounds, soft Extremities: other (MARKED ERYTHEMA AND WARMTH TO ENTIRE LEFT LOWER LEG AND FOOT, WITH MILDER ERYTHEMA AND WARMTH TO MID THIGH-MEDIALLY, POSTERIORLY AND LATERALLY. MARKEDLY EXAGGERATED PAIN RESPONSE-WAILS LOUDLY EVEN BEFORE HE IS TOUCHED. MODERATE SWELLING TO LEFT FOOT AND LOWER LEG. DISTAL MOTOR/SENSORY/ VASCULAR INTACT. NO OPEN WOUNDS, SORES, FISSURES, DRAINAGE, ETC. NOTED. BUT LIMITED FOOT / TOE EXAM DUE TO PT UNCOOPERATIVENESS. 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, no motor/sensory deficits, alert, oriented x 3 Skin: warm/dry, other ( ABOVE) Progress/Results/Core Measures Results/Orders Lab Results Laboratory Tests Test 09/22/17 23:50 Range/Units White Blood Count 12.6 H 4.3-11.0 10^3/uL Red Blood Count 3.67 L 4.35-5.85 10^6/uL Hemoglobin 10.6 L 13.3-17.7 G/DL Hematocrit 32 L 40-54 % Mean Corpuscular Volume 87 80-99 FL Mean Corpuscular Hemoglobin 29 25-34 PG Mean Corpuscular Hemoglobin Concent 33 32-36 G/DL Red Cell Distribution Width 13.8 10.0-14.5 % Platelet Count 514 H 130-400 10^3/uL Mean Platelet Volume 9.1 7.4-10.4 FL Neutrophils (%) (Auto) 79 H 42-75 % Lymphocytes (%) (Auto) 10 L 12-44 % Monocytes (%) (Auto) 10 0-12 % Eosinophils (%) (Auto) 2 0-10 % Basophils (%) (Auto) 0 0-10 % Neutrophils # (Auto) 9.9 H 1.8-7.8 X 10^3 Lymphocytes # (Auto) 1.2 1.0-4.0 X 10^3 Monocytes # (Auto) 1.2 H 0.0-1.0 X 10^3 Eosinophils # (Auto) 0.2 0.0-0.3 10^3/uL Basophils # (Auto) 0.0 0.0-0.1 10^3/uL Erythrocyte Sedimentation Rate > 140 H 0-15 MM/HR Prothrombin Time 34.2 H 12.2-14.7 SEC INR Comment 3.4 H 0.8-1.4 Activated Partial Thromboplast Time 124 *H 24-35 SEC Sodium Level 137 135-145 MMOL/L Potassium Level 3.8 3.6-5.0 MMOL/L Chloride Level 95 L 98-107 MMOL/L Carbon Dioxide Level 29 21-32 MMOL/L Anion Gap 13 5-14 MMOL/L Blood Urea Nitrogen 9 7-18 MG/DL Creatinine 0.76 0.60-1.30 MG/DL Estimat Glomerular Filtration Rate > 60 BUN/Creatinine Ratio 12 Glucose Level 115 H 70-105 MG/DL Lactic Acid Level 0.81 0.50-2.00 MMOL/L Calcium Level 9.6 8.5-10.1 MG/DL Total Bilirubin 0.4 0.1-1.0 MG/DL Aspartate Amino Transf (AST/SGOT) 21 5-34 U/L Alanine Aminotransferase (ALT/SGPT) 19 0-55 U/L Alkaline Phosphatase 80 40-136 U/L C-Reactive Protein High Sensitivity 34.60 H 0.00-0.50 MG/DL Total Protein 7.8 6.4-8.2 GM/DL Albumin 3.5 3.2-4.5 GM/DL My Orders Orders - MANOHAR,KIKO K DO Saline Lock/Iv-Start (09/22/17 23:43) Cbc With Automated Diff (09/22/17 23:43) Comprehensive Metabolic Panel (09/22/17 23:43) Hs C Reactive Protein (09/22/17 23:43) Erythrocyte Sedimentation Rate (09/22/17 23:43) Lactic Acid Analyzer (09/22/17 23:43) Protime With Inr (09/22/17 23:43) Partial Thromboplastin Time (09/22/17 23:43) Blood Culture (09/22/17 23:43) Vancomycin Injection (Vancomycin Injecti (09/23/17 01:00) Ketorolac Injection (Toradol Injection) (09/23/17 01:00) Morphine Injection (Morphine Injection (09/23/17 00:52) Vital Signs/I&O Vital Sign - Last 12Hours 09/22/17 23:40 Temp 98.7 Pulse 97 Resp 20 B/P (MAP) 138/77 (97) Pulse Ox 97 O2 Delivery Room Air Blood Pressure Mean: 97 Progress Note : Progress Note NO DETERIORATION IN PT'S CONDITION DURING ER STAY Departure Communication (Admissions) Time/Spoke to Admitting Phy: 00:[address] TRENT, HOSPITALIST BLOOD BANK ASSISTANT. ACCEPTS PT FOR ADMIT Impression Impression: Primary Impression: CELLULIIIS LEFT LEG AND FOOT Disposition: ADMITTED INPATIENT Condition: Stable Admissions Decision to Admit Reason: Admit from ER (General) Decision to Admit/Date: Sep 23, 2017 Time/Decision to Admit Time: 00:55 Departure-Patient Inst. Referrals: MARTHA LARSON MD (PCP/Family) Primary Care Physician KIKO VILLELA DO Sep 23, 2017 00:56
[2017-09-23] MEDS ORDERED: KETOROLAC 30 MG/ML VIAL IVP ONE (01:00)
[2017-09-23] MEDS ORDERED: VANCOMYCIN INJECTION 1,000 MG in NS (IVPB) 250 ML IV ONE (01:00)
[2017-09-23] MEDS ORDERED: NS (IVPB) 250 ML ONE (01:10)
[2017-09-23] MEDS ORDERED: VANCOMYCIN 1000 MG/VIAL ONE (01:10)
--- OUTSIDE RECORDS SUMMARY | 2017-09-23 01:26 | XMS REPORT | Clinical Summary ---
Author Author [facility] Organization [facility] Address Unknown Phone Unavailable Care Team Providers Care Paper Bag Making Machinist Name Role Phone Jayro Duran MD 21 Martha Flowers MD PCP Source Comments Some departments are not documenting in the electronic medical record. If you do not see the information that you expected, contact Release of Information in the Health Information Management department at [phone] for further assistance in locating additional records.[facility] Allergies Active Allergy Reactions Severity Noted Date [...] Active 25 mg extended release daily. tablet [place]-3 Acid Ethyl Esters Take 1 g by [...] artery disease) 08/12/2017 Coronary artery disease involving [place] coronary artery of [place] heart with angina pectoris (HCC) Overview: 07/12/17 - NSTEMI at [facility] in [place], [place]. Successful PCI with a Resolute Integrity 2.5 x 26 mm stent to the OM with Dr. Rhoades. Unsuccessful PCI to the RCA VENEER MARKER. Pt referred to Dr. Warner for possible VENEER MARKER procedure. 08/06/16 - Nuclear stress test ([facility]): No ischemia or arrhythmia on EKG. Diaphragmatic attenuation with reversible ischemia involving the mid to apical inferior wall and inferolateral wall. Normal left ventricular size with mild hypokinesis at the lateral wall. EF 50%. Previous history of Promus stent placement to - date unknown. NSTEMI (non-ST elevated myocardial infarction) ([facility]) 08/07/2017 Overview: 07/12/17 at [address] [place], [place]. Tobacco abuse 08/07/2017 Ischemic cardiomyopathy 08/07/2017 Overview: 07/12/17 - Echo ([facility]): EF 30-35%. Left ventricular cavity size [...] MD Coronary artery disease - Encounter involving [place]kawa coronary 08/13/2017 artery of [place] heart with angina pectoris (HCC) 08/12/2017 Hospital Lab [place] APRN Atherosclerotic heart Encounter disease of [place] coronary artery with unspecified angina pectoris (HCC) [...] 07/24/2017 Telephone Cardiology Alee Awad RN Referral (VENEER MARKER - Dr. Warner) from Last 3 Months Social History Tobacco Use Types Packs/Day Years Used Date Current Every Day Smoker Alcohol Use Drinks/Week oz/Week Comments No Sex Assigned at Date Recorded Not on file Last Filed Vital Signs Vital Sign Reading Time Taken Blood Pressure 99/58 08/13/2017 7:35 AM [employer] Pulse 76 08/13/2017 7:35 AM [employer] TE[employer] Temperature 37.1 C (98.7 F) 08/13/2017 6:15 AM [employer] TE[employer]ER Respiratory Rate - - Oxygen Saturation 97% 08/13/2017 7:35 AM [employer] TE[employer]ER Inhaled Oxygen - - Concentration Weight 87.5 kg (192 lb 14.4 oz) 08/12/2017 8:13 AM [employer] TE[employer] Height 162.6 cm (5' 4.02") 08/12/2017 8:13 AM [employer] TE[employer]ER Body Mass Index 33.1 08/12/2017 8:13 AM [employer] TE[employer]ER Plan of Treatment Health Maintenance Due Date Last Done Comments PHYSICAL (COMPREHENSIVE) 1979 EXAM PERTUSSIS VACCINE 1983 TETANUS VACCINE 1989 INFLUENZA VACCINE 03/26/2017 Procedures Procedure Name Priority Date/Time Associated Diagnosis Comments TELEMETRY STRIPS-SCAN 08/21/2017 Results for this 2:42 PM [employer] procedure are in the results section. PROCEDURE RECORD-SCAN 08/21/2017 Results for this 1:47 PM [employer] TE[employer]ER procedure are in the results section. ECG-SCAN 08/21/2017 Results for this 10:46 AM [employer] TE[employer]ER procedure are in the results section. ECG-SCAN 08/13/2017 Results for this 7:30 AM [employer] TE[employer]ER procedure are in the results section. ECG-SCAN 08/12/2017 Results for this 9:40 PM [employer] TE[employer]ER procedure are in the results section. from [...] Boo Pretty MD - 08/12/2017 3:12 PM [employer] TE[employer]ER [facility] CARDIAC CATHETERIZATION REPORT Page 3 HOANG Piedra : 1970 KU#: [id number] MR #/Billing ID #: [id number] / [id number] DATE: 08/12/2017 OPERATING ROOM SPECIALIST: Seth Warner MD DICTATING PROVIDER: Boo Pretty MD REFERRING PHYSICIAN: MARTHA FLOWERS INTERVENTIONAL PRECISION HONING MACHINE OPERATOR: Boo Pretty MD. PROCEDURES PERFORMED: 1. Selective right and left coronary angiograms with dual arterial injections. 2. Bilateral groin accesses, both 7-Bhutanese common femoral arterial. 3. Dual coronary injections. 4. Chronic Total Occlusion (VENEER MARKER) PCI of the proximal right RCA extending into the right PLV with 3 drug-eluting stents in overlapping fashion with antegrade wire escalation technique. 5. Right common femoral angiogram, limited. INDICATION FOR THE PROCEDURE: Hoang Linda is a pleasant, 47-year-old gentleman with a history of recent [id number] MN, status post PCI to his left circumflex extending into his obtuse marginal with a Resolute Integrity stent from an outside institution. There was an attempted antegrade PCI on his RCA VENEER MARKER, which was unsuccessful. We would like to [...] The patient was brought in the laborer tanbark in the fasting, nonsedated state. After giving the patient a total of 225 mcg of fentanyl and 5 mg of Versed, we achieved moderate conscious sedation, which was monitored and maintained throughout the procedure for a total of 126 minutes. Respiratory, hemodynamic, and neurological parameters were monitored throughout the procedure by the operators and by the laborer tanbark staff. The patient was prepped and draped in sterile fashion. We exposed bilateral groins and prepped with 1% chlorhexidine and instilled a total of 20 mL of 1% lidocaine for good local anesthesia in both groins. We then gained access into the right common femoral artery using a micropuncture needle and modified Seldinger technique to insert a 7-Bhutanese 10 cm arterial sheath with good blood flow return. Similar technique was adopted to gain access to the left common femoral artery with the same 7-Bhutanese 10 cm arterial sheath. We went in with the intent to perform a retrograde VENEER MARKER PCI, and hence, we obtained dual coronary [...] OCCLUSION): 1. We used an EBU 3.75, 7-Bhutanese guide catheter to engage the left main, while we used an AL1, 7-Bhutanese guide catheter to engage the RCA for [...] approach. 3. We then switched the AL1, 7-Bhutanese guide for a Hockey-Stick 1, 6-Bhutanese guide, given the fact that an AL1 [...] not. We then switched out for a Aircraft Quality Control Inspector 200, 0.014 x 300 cm wire and [...] the right PLV and switched out the Aircraft Quality Control Inspector 200 wire for an 0.014 x 300 [...] the distal edge of the stent with oriental orthodox of RUSLAN- 3 flow to the PLV. [...] and was transferred out of the laborer tanbark in stable condition without any chest pain. Dr. Warner, my attending, was scrubbed and performed mccloud portions of the procedure and supervised the rest of it as well. TOTAL CONTRAST USED: 340 mL. TOTAL AIR KERMA: 3528 mGy. Right common femoral angiogram demonstrated a high bifurcation of the right side , and hence, we opted for manual compression method. LESION CHARACTERISTICS: 1. RCA VENEER MARKER ACC/AHA type C lesion. 2. RUSLAN 0 [...] x 12 months. Seth Warner MD PCG/Cayetano /[id number] cc: - MARTHA FLOWERS * ECG-SCAN (08/13/2017 7:30 AM) Narrative Ordered by an unspecified provider. * PROTIME INR (PT) (08/13/2017 3:45 AM) Only the most recent of 2 results within the time period is included. Component Value Ref Range INR 1.1 0.8 - 1.2 Specimen Performing Laboratory [facility] [address] [place] [address] * CBC (08/13/2017 3:45 AM) Only the [...] Performing Laboratory [facility] [address] [place] [address] * BASIC METABOLIC PANEL (08/13/2017 3:45 AM) [...] Performing Laboratory [facility] [address] [place] [address] * ECG-SCAN (08/12/2017 9:40 PM) Narrative Ordered by an unspecified provider. * POC ACTIVATED CLOTTING TIME (08/12/2017 4:49 PM) Only the most recent of 8 results within the time period is included. Component Value Ref Range Activated Clotting Time 162 s Specimen Performing Laboratory [facility] [address] [place] [address] from Last 3 Months
--- OUTSIDE RECORDS SUMMARY | 2017-09-23 01:26 | XMS REPORT | Encounter Summary ---
Author Author [facility] Organization [facility] Address Unknown Phone Unavailable Care Team Providers Care Warp Yarn Sorter Name Role Phone Jayro Duran MD 21 John Flowers MD PCP Reason for Visit * Reason Comments Records Request cath report faxed to Dr. Duran's office Encounter Details Date Type Department Care Team Description 09/02/2017 Telephone [facility] Cardiology Alee Awad RN Records Request (cath [address] report faxed to [facility] Roger's office) [place] [address] Social History Tobacco Use Types Packs/Day Years Used Date Current Every Day Smoker Alcohol Use Drinks/Week oz/Week Comments No Sex Assigned at Date Recorded Not on file as of this encounter Miscellaneous Notes * Telephone Encounter - Alee Awad RN - 09/02/2017 5:16 PM MANAGER EMERGENCY DEPARTMENT Voicemail received from Malgorzata with Dr. Duran's office in [place]. She is requesting pt's cath report. Faxed to Dr. Duran as requested. in this encounter Plan of Treatment Not on fileas of this encounter Visit Diagnoses Not on filein this encounter
--- OUTSIDE RECORDS SUMMARY | 2017-09-23 01:26 | XMS REPORT | Continuity of Care Document ---
Author Author [facility] Organization [facility] Address Unknown Phone Unavailable Care Team Providers Care Latex Spooler Name Role Phone [employer] Unavailable Unavailable Problems Medications Allergies, Adverse Reactions, Alerts Immunizations Results Vital Signs Encounters Location Location Details Encounter Type Encounter Number Reason For Visit Attending Provider ADM Date DC Date Status Source SPECIMEN [id number] 08/12/2017 08/12/2017 Active [facility] SPECIMEN [id number] 08/12/2017 08/12/2017 Active [facility] O Active [facility] Procedures Plan of Care Social History Assessment and Plan Family History Advance Directives Functional Status
--- OUTSIDE RECORDS SUMMARY | 2017-09-23 01:26 | XMS REPORT | Encounter Summary ---
Author [facility] Address Unknown Phone Unavailable Care Team Providers Care Quick Sketch Artist Name Role Phone Jayro Duran MD 21 Martha Flowers MD PCP Reason for Visit * Auth/Cert (Routine) Status Reason Specialty Diagnoses / Referred By Referred To Procedures Contact Contact Encounter Details Date Type Department Care Team Description 08/12/2017 Hospital Cardiac Catheterization Fredrick Warner MD Coronary artery disease - Encounter Laboratory [address] involving mescal[place] apache coronary 08/13/[address] [place] [address] artery [place] [address] [place] [address] with angina pectoris [phone] (HCC) Social History Tobacco Use Types Packs/Day Years Used Date Current Every Day Smoker Alcohol Use Drinks/Week oz/Week Comments No Sex Assigned at Date Recorded Not on file as of this encounter Last Filed Vital Signs Vital Sign Reading Time Taken Blood Pressure 99/58 08/13/2017 7:35 AM VP PURCHASING Pulse 76 08/13/2017 7:35 AM VP PURCHASING Temperature 37.1 C (98.7 F) 08/13/2017 6:15 AM VP PURCHASING Respiratory Rate - - Oxygen Saturation 97% 08/13/2017 7:35 AM VP PURCHASING Inhaled Oxygen - - Concentration Weight 87.5 kg (192 lb 14.4 oz) 08/12/2017 8:13 AM VP PURCHASING Height 162.6 cm (5' 4.02") 08/12/2017 8:13 AM VP PURCHASING Body Mass Index 33.1 08/12/2017 8:13 AM VP PURCHASING in this encounter Discharge Summaries * Karlie Victor PA-C - 08/13/2017 8:00 AM VP PURCHASING Formatting of this note may be different from the original. Physician Discharge Summary Name: Hoang Linda Date Of : 1970 Age: 47 years Admit date: 08/12/2017 Discharge date: 08/13/2017 Attending Physician: Dr. 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 Successful PCI with a Resolute Integrity 2.5 x 26 mm stent to the OM with Dr. Rhoades. Unsuccessful PCI to the RCA DRYLAND FARMER. Pt referred to Dr. Warner for possible DRYLAND FARMER procedure. 08/06/16 - Nuclear stress test ([facility]): No ischemia or arrhythmia on EKG. Diaphragmatic attenuation with reversible ischemia involving the mid to apic Ischemic cardiomyopathy Mild mitral regurgitation 08/07/2017 Mild tricuspid regurgitation 08/07/2017 NSTEMI (non-ST elevated myocardial infarction) ([facility]) 08/07/2017 Protein S deficiency ([facility]) 08/07/2017 Tobacco abuse 08/07/2017 Allergies: Pcn [penicillins] [...] of OM at [facility] in [place], [place]. He was also found to have DRYLAND FARMER of RCA. PCI was attempted which was [...] prevent stent thrombosis and possible myocardial infarction. PATTERNMAKER PRESSURE CAST warfarin was resumed 08/12/17. No bridging is recommended per staff to minimize bleeding complications. PT/INR on Saturday. PT/INR managed by Primary life skills specialist. PT/ INR goal 2.0-3.0. Lipid profile as [...] allows and BP permits. F/u w/ Primary life skills specialist as already scheduled or sooner if needed. He will continue to wear LifeVest. Currently his primary life skills specialist is planning to repeat Echo in August. EKG NSR 72 bpm, PVC's. Non specific ST-T changes unchanged from prior. Condition at Discharge: Stable Discharge Diagnoses: Hospital Problems Active Problems * (Principal)Coronary artery disease involving mescalero apache 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) NSTEMI (non-ST elevated myocardial infarction) (HCC) Tobacco abuse Ischemic cardiomyopathy Protein S deficiency (HCC) CAD (coronary artery disease) Surgical Procedures: Significant Diagnostic Studies and Procedures: 1. Selective right and left coronary angiograms with dual arterial injections. 2. Bilateral groin accesses, both 7-Moroccan common femoral arterial. 3. Dual coronary injections. 4. DRYLAND FARMER PCI of the proximal right RCA extending [...] and restaurant foods. Call your doctor (your life skills specialist, if you have one) if: -you gain more than 2 pounds in 24 hours. -you gain more than 5 pounds in 1 week. -any of your symptoms get worse Do NOT wait to let your doctor know about these changes. Questions About Your Stay For questions or concerns regarding your hospital stay: - DURING BUSINESS HOURS (8:00 AM - 4:30 PM): Call [phone] and asked to be transferred to your discharge attending physician. - AFTER BUSINESS HOURS (4:30 PM - 8:00 AM, on weekends, or holidays): Call [phone] and ask the tool planer set up operator to page the on-call doctor for the discharge attending physician. Discharging attending physician: FREDRICK WARNER [[id number]] Cardiac Diet Limiting unhealthy fats and cholesterol [...] discharge. Return Appointment F/u with your primary life skills specialist as already scheduled with echo in August. [facility] Provider JEFFERY RHOADES [[id number]] Heart Failure Information You are at risk [...] 5 pounds in a week, call your life skills specialist immediately. EARLY REPORTING OF THESE CHANGES IS [...] please call . You can also visit [email or web address] for more information. [facility] Education about Stroke [...] Print Associated Diagnoses: Coronary artery disease involving mescalero apache 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); Ischemic cardiomyopathy; [...] tablets, call 911. PRESCRIPTION TYPE: Historical Med [place]-3 Acid Ethyl Esters 1 gram cap Take [...] items needing follow up: as above Signed: Kralie Victor PA-C 08/13/2017 cc: Primary Care Physician: Martha Flowers Verified Referring physicians: Dr. Jeffery Rhoades/Dr. Jayro Duran ([place], [place]) Additional provider(s): in this encounter Discharge Instructions * Patient Instructions - Dayan Easley RN - 08/13/2017 8:32 AM VP PURCHASING Manual Sheath Removal From A Large Vein [...] to speak with someone? During Business Hours: [facility] Office at the [facility]: (Saturday-Saturday) [place]: [phone] (Saturday-Saturday) [place]: [phone] (Saturday-Saturday) [place]: [phone] (Saturday and ) [place]: [phone] (Saturday-Saturday) [place]: [phone] (Saturday-Saturday) [place]: [phone] (Saturday-) [facility]: [phone] (Saturday, Saturday and Saturday) [place]: [phone] (Saturday, Saturday and Saturday) [facility]): [phone] (Saturday, Saturday and Saturday) Nights and Weekends [facility] Office at the [facility]: This education is meant to serve as a resource to you and your family. It is not meant to be all inclusive. The members of the [facility] at [facility], , will be glad to answer [...] Pain. Max of 3 tablets, call 911. [place]-3 Acid Ethyl Esters Take 1 g by [...] Take Coronary artery disease with food. involving mescalero apache 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), Ischemic cardiomyopathy, NSTEMI (non-ST elevated myocardial infarction) ([facility]), Tobacco abuse as of this encounter Progress Notes * Wilfredo Gardner RN - 08/13/2017 8:52 AM VP PURCHASING Cardiac Rehab Call Back Note: Spoke with patient. He will start OPCR in [place] this Saturday. Are you tolerating activity?Yes Is pain controlled?Yes Is appetite normal?Yes Are you having symptoms of heart discomfort?No Are you having signs of infection at your incision sites or groin site?No Do you want outpt cardiac rehab?Yes * Cassidy Tracy RN - 08/13/2017 8:52 AM VP PURCHASING I have reviewed the notes, assessment, and/or procedures performed by Dayan Easley RN and concur with her/his documentation unless otherwise noted. * Dayan Easley RN - 08/13/2017 8:51 AM VP PURCHASING Patient discharged to home with all belongings. Discharge instructions, med reconciliation and home wound care instructions given and explained to patient and family both verbally and written. Accompanied by family. No complaints of pain or discomfort. Bilateral groins remains clean, dry, and intact with no evidence of a hematoma after ambulation. Patient escorted to [facility] via Transport. Patient to follow up with [facility] ([facility]) or on-call physician with any additional questions or concerns. All contact numbers provided. Patient and family acceptant of DC instuctions and report understanding to all information. * Wilfredo Gardner RN - 08/13/2017 6:46 AM VP PURCHASING Formatting of this note may be different from the original. CARDIOPULMONARY REHABILITATION INPATIENT ASSESSMENT Cardiac Rehabilitation Staff: Elia Gardner RN Discharge Date: Demographics Pre-admit Dx: Date of Admission: 08/12/2017 Room: [address] : 1970 Insurance: Primary: BC/BS of Secondary: . 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 ED Contact: Yazmin Maddi ED Phone #: [phone] CTS: DEBORAH Air Tool Operator: Timmy Cardiac Procedures and Events PCI: 08/12/17 Risk Factors BP: 97/54 Height: 162.6 cm (64.02") Weight: 87.5 kg (192 lb 14.4 oz) BMI (Calculated): 33.09 Medical History has a past medical history of Coronary artery disease involving mescal[place] apache 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) (08/07/2017); Coronary artery disease involving mescalero apache 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) (08/07/2017); Ischemic cardiomyopathy; Mild mitral regurgitation (08/07/2017); Mild tricuspid regurgitation (08/07/2017); NSTEMI ( non-ST elevated myocardial infarction) ([facility]) (08/07/2017); Protein S deficiency ([facility]) (08/07/2017); and Tobacco abuse (08/07/2017). Labs No results found for: CHOL, TRIG, HDL, LDL, HGBA1C, A1C, TNI Heart Resource Manual Given: 08/13/17 Teaching Completed: 08/13/17 Outpatient Cardiopulmonary Rehabilitation OPCR: Yes Referral Faxed to: [place], [place] Date Faxed: 08/13/17 (Currently enrolled. Update faxed to [facility]) Location: [place], [place] If [facility], Sent to Staff: Wilfredo Gardner RN 08/13/2017 * Wilfredo Gardner, LILA - 08/13/2017 6:44 AM VP PURCHASING Introduced self to patient and gave copy of the Heart Resource Manual pertaining to coronary interventions. He is currently enrolled in the program at [facility] in [place], [place] and will continue when cleared by life skills specialist. I have faxed an update to [facility]. * Dayan Easley, RN - 08/12/2017 5:57 PM VP PURCHASING Formatting of this note may be different [...] Boo Pretty MD - 08/12/2017 5:53 PM VP PURCHASING Mr. Linda was seen and examined in CTR after the DRYLAND FARMER PCI with a full metal jacket stenting [...] asymptomatic at this juncture. Bilateral sheaths 7 Moroccan have been removed with excellent hemostasis. This appears to be a significant vagal response associated with sheath pull. I do not suspect any bleeding at this point in time. Please call me if his clinical status changes. Boo Pretty M.D. Fellow in Interventional Cardiology Beeper # [phone] * Cassidy Tracy RN - 08/12/2017 4:45 PM VP PURCHASING I have reviewed the notes, assessment, and/or procedures performed by Dayan Easley RN and concur with her/his documentation unless otherwise noted. * Karlie Victor PA-C - 08/12/2017 3:04 PM VP PURCHASING S/p 3 KENNEDY to RCA. Recent NSTEMI [...] DC home in am. F/u with Primary life skills specialist as already scheduled or sooner if needed. Maximize treatment for LVD with GDMT as pt. Can tolerate, renal function allows and BP permits. Karlie Victor PA-C (pgr [phone]) * Denisse Vidal, RT - 08/12/2017 11:12 AM VP PURCHASING Formatting of this note may be different [...] Date: 08/12/2017 [place]cloud AC=Airway clearance AM=Aerosolized medication BA=[place] aerosol DB&C=Deep breathe & cough FEV1=Forced expiratory volume in first second) IC=Inspiratory capacity LE=Lung expansion MDI=Metered dose inhaler Neb=Nebulizer O2=Oxygen Oxim=Oximetry PEFR=Peak expiratory flow rate SEGMENT BLOCK LAYER=Rapid Response Team * Dayan Easley, RN - 08/12/2017 8:01 AM VP PURCHASING Patient arrived on unit via ambulation accompanied by RN. Patient transferred to the bed without assistance. Assessment completed, refer to flowsheet for details. Orders released, reviewed, and implemented as appropriate. Oriented to surroundings, call light within reach. Plan of care reviewed. Will continue to monitor and assess. in this encounter H&P Notes * Karlie Victor PA-C - 08/12/2017 9:37 AM VP PURCHASING Formatting of this note may be different [...] which is occluded proximally. He has good uspk-bk-[id number] collateralization to the posterior descending and posterior [...] Diagnosis Date Noted Coronary artery disease involving mescal[place] apache coronary artery of [place] apache heart with angina pectoris ([facility]) 08/07/2017 07/12/17 - NSTEMI at [facility] in [place], [place]. Successful PCI with a Resolute Integrity 2.5 x 26 mm stent to the OM with Dr. Rhoades. Unsuccessful PCI to the RCA DRYLAND FARMER. Pt referred to Dr. Warner for possible DRYLAND FARMER procedure. 08/06/16 - Nuclear stress test ([facility]): No ischemia or arrhythmia on EKG. Diaphragmatic attenuation with reversible ischemia involving the mid to apical inferior wall and inferolateral wall. Normal left ventricular size with mild hypokinesis at the lateral wall. EF 50%. Previous history of Promus stent placement to - date unknown. NSTEMI (non-ST elevated myocardial infarction) ([facility]) 08/07/2017 07/12/17 at [facility] in [place], [place]. Tobacco abuse 08/07/2017 Ischemic cardiomyopathy 08/07/2017 07/12/17 - Echo ([facility]): EF 30-35%. Left ventricular cavity size increased. Wall thickness normal. Regional wall motion abnormalities. Akinesis of the inferior myocardium. Akinesis of the lateral myocardium. 07/12/17 - NSTEMI - EF 20%, severe left ventricular systolic function (per cath report). Life Vest applied for primary prevention of sudden cardiac . Mild mitral regurgitation 08/07/2017 Mild tricuspid regurgitation 08/07/2017 Protein S deficiency ([facility]) 08/07/2017 On warfarin. Review of Systems Constitution: [...] Diagnoses Name Primary? Coronary artery disease involving mescal[place] apache 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) Yes Ischemic [...] Pain. Max of 3 tablets, call 911. [place]-3 Acid Ethyl Esters 1 gram cap Take [...] Boo Pretty MD - 08/12/2017 3:12 PM VP PURCHASING Associated Order(s): CARDIAC CATH REPORT [facility] CARDIAC CATHETERIZATION REPORT Page 3 HOANG Piedra : 1970 [facility]#: [id number] [facility] MR #/Billing ID #: [id number] / [id number] DATE: 08/12/2017 MAKEUP ARTISTRY INSTRUCTOR: Fredrick Warner MD DICTATING PROVIDER: Boo Pretty MD REFERRING PHYSICIAN: MARTHA FLOWERS INTERVENTIONAL BOW MAKER CUSTOM: Boo Pretty MD. PROCEDURES PERFORMED: 1. Selective right and left coronary angiograms with dual arterial injections. 2. Bilateral groin accesses, both 7-Moroccan common femoral arterial. 3. Dual coronary injections. 4. Chronic Total Occlusion (DRYLAND FARMER) PCI of the proximal right RCA extending into the right PLV with 3 drug-eluting stents in overlapping fashion with antegrade wire escalation technique. 5. Right common femoral angiogram, limited. INDICATION FOR THE PROCEDURE: Hoang Linda is a pleasant, 47-year-old gentleman with a history of recent [id number] NE, status post PCI to his left circumflex extending into his obtuse marginal with a Resolute Integrity stent from an outside institution. There was an attempted antegrade PCI on his RCA DRYLAND FARMER, which was unsuccessful. We would like to [...] PROCEDURE: The patient was brought in the laboratory equipment installer in the fasting, nonsedated state. After giving the patient a total of 225 mcg of fentanyl and 5 mg of Versed, we achieved moderate conscious sedation, which was monitored and maintained throughout the procedure for a total of 126 minutes. Respiratory, hemodynamic, and neurological parameters were monitored throughout the procedure by the operators and by the laboratory equipment installer staff. The patient was prepped and draped in sterile fashion. We exposed bilateral groins and prepped with 1% chlorhexidine and instilled a total of 20 mL of 1% lidocaine for good local anesthesia in both groins. We then gained access into the right common femoral artery using a micropuncture needle and modified Seldinger technique to insert a 7-Moroccan 10 cm arterial sheath with good blood flow return. Similar technique was adopted to gain access to the left common femoral artery with the same 7-Moroccan 10 cm arterial sheath. We went in with the intent to perform a retrograde DRYLAND FARMER PCI, and hence, we obtained dual coronary [...] OCCLUSION): 1. We used an EBU 3.75, 7-Moroccan guide catheter to engage the left main, while we used an AL1, 7-Moroccan guide catheter to engage the RCA for [...] approach. 3. We then switched the AL1, 7-Moroccan guide for a Hockey-Stick 1, 6-Moroccan guide , given the fact that an [...] not. We then switched out for a Binder Coverstitch 200, 0.014 x 300 cm wire and [...] the right PLV and switched out the Binder Coverstitch 200 wire for an 0.014 x 300 [...] the distal edge of the stent with holiness of RUSLAN- 3 flow to the PLV. [...] complications, and was transferred out of the laboratory equipment installer in stable condition without any chest pain. Dr. Warner, my attending, was scrubbed and performed mccloud portions of the procedure and supervised the rest of it as well. TOTAL CONTRAST USED: 340 mL. TOTAL AIR KERMA: 3528 mGy. Right common femoral angiogram demonstrated a high bifurcation of the right side , and hence, we opted for manual compression method. LESION CHARACTERISTICS: 1. RCA DRYLAND FARMER ACC/AHA type C lesion. 2. RUSLAN 0 [...] x 12 months. Fredrick Warner MD PCG/MedQ /[id number] cc: - MARTHA FLOWERS in this encounter Plan of Treatment Not on fileas of this encounter Procedures Procedure Name Priority Date/Time Associated Diagnosis Comments TELEMETRY STRIPS-SCAN 08/21/2017 Results for this 2:42 PM VP PURCHASING procedure are in the results section. PROCEDURE RECORD-SCAN 08/21/2017 Results for this 1:47 PM VP PURCHASING procedure are in the results section. ECG-SCAN 08/21/2017 Results for this 10:46 AM VP PURCHASING procedure are in the results section. ECG-SCAN 08/13/2017 Results for this 7:30 AM VP PURCHASING procedure are in the results section. ECG-SCAN 08/12/2017 Results for this 9:40 PM VP PURCHASING procedure are in the results section. in [...] Boo Pretty MD - 08/12/2017 3:12 PM [facility] at [facility] CARDIAC CATHETERIZATION REPORT Page 3 HOANG Piedra : 1970 [facility]#: [id number] MR #/Billing ID #: [id number] / [id number] DATE: 08/12/2017 MAKEUP ARTISTRY INSTRUCTOR: Fredrick Warner MD DICTATING PROVIDER: Boo Pretty MD REFERRING PHYSICIAN: MARTHA FLOWERS INTERVENTIONAL BOW MAKER CUSTOM: Boo Pretty MD. PROCEDURES PERFORMED: 1. Selective right and left coronary angiograms with dual arterial injections. 2. Bilateral groin accesses, both 7-Moroccan common femoral arterial. 3. Dual coronary injections. 4. Chronic Total Occlusion (DRYLAND FARMER) PCI of the proximal right RCA extending into the right PLV with 3 drug-eluting stents in overlapping fashion with antegrade wire escalation technique. 5. Right common femoral angiogram, limited. INDICATION FOR THE PROCEDURE: Hoang Linda is a pleasant, 47-year-old gentleman with a history of recent [id number]-[id number] NE, status post PCI to his left circumflex extending into his obtuse marginal with a Resolute Integrity stent from an outside institution. There was an attempted antegrade PCI on his RCA DRYLAND FARMER, which was unsuccessful. We would like to [...] PROCEDURE: The patient was brought in the laboratory equipment installer in the fasting, nonsedated state. After giving the patient a total of 225 mcg of fentanyl and 5 mg of Versed, we achieved moderate conscious sedation, which was monitored and maintained throughout the procedure for a total of 126 minutes. Respiratory, hemodynamic, and neurological parameters were monitored throughout the procedure by the operators and by the laboratory equipment installer staff. The patient was prepped and draped in sterile fashion. We exposed bilateral groins and prepped with 1% chlorhexidine and instilled a total of 20 mL of 1% lidocaine for good local anesthesia in both groins. We then gained access into the right common femoral artery using a micropuncture needle and modified Seldinger technique to insert a 7-Moroccan 10 cm arterial sheath with good blood flow return. Similar technique was adopted to gain access to the left common femoral artery with the same 7-Moroccan 10 cm arterial sheath. We went in with the intent to perform a retrograde DRYLAND FARMER PCI, and hence, we obtained dual coronary [...] OCCLUSION): 1. We used an EBU 3.75, 7-Moroccan guide catheter to engage the left main, while we used an AL1, 7-Moroccan guide catheter to engage the RCA for [...] approach. 3. We then switched the AL1, 7-Moroccan guide for a Hockey-Stick 1, 6-Moroccan guide, given the fact that an AL1 [...] not. We then switched out for a Binder Coverstitch 200, 0.014 x 300 cm wire and [...] the right PLV and switched out the Binder Coverstitch 200 wire for an 0.014 x 300 [...] the distal edge of the stent with holiness of RUSLAN- 3 flow to the PLV. [...] complications, and was transferred out of the laboratory equipment installer in stable condition without any chest pain. Dr. Warner, my attending, was scrubbed and performed mccloud portions of the procedure and supervised the rest of it as well. TOTAL CONTRAST USED: 340 mL. TOTAL AIR KERMA: 3528 mGy. Right common femoral angiogram demonstrated a high bifurcation of the right side , and hence, we opted for manual compression method. LESION CHARACTERISTICS: 1. RCA DRYLAND FARMER ACC/AHA type C lesion. 2. RUSLAN 0 [...] x 12 months. Fredrick Warner MD PCG/MedYola /[id number] cc: - MARTHA FLOWERS * ECG-SCAN (08/13/2017 [...] Performing Laboratory Blood [facility] [address] [place] [address] * BASIC METABOLIC PANEL (08/13/2017 3:45 AM) [...] questions. Specimen Performing Laboratory Blood MAIN LAB [address] [place] [id number] * PROTIME INR (PT) (08/13/2017 3:45 AM) Component Value Ref Range INR 1.1 0.8 - 1.2 Specimen Performing Laboratory Blood [facility] [address] [place] [id number] * ECG-SCAN (08/12/2017 9:40 PM) Narrative Ordered by an unspecified provider. * POC ACTIVATED CLOTTING TIME (08/12/2017 4:49 PM) Component Value Ref Range Activated Clotting Time 162 s Specimen Performing Laboratory MAIN LAB [address] [place] [id number] * POC ACTIVATED CLOTTING TIME (08/12/2017 4:18 PM) Component Value Ref Range Activated Clotting Time 186 s Specimen Performing Laboratory MAIN LAB [address] [place] [phone] * POC ACTIVATED CLOTTING TIME (08/12/2017 4:00 PM) Component Value Ref Range Activated Clotting Time 183 s Specimen Performing Laboratory MAIN LAB [address] [place] [id number] * POC ACTIVATED CLOTTING TIME (08/12/2017 2:55 PM) Component Value Ref Range Activated Clotting Time 400 s Specimen Performing Laboratory MAIN LAB [address] [place] [id number] * POC ACTIVATED CLOTTING TIME (08/12/2017 2:34 PM) Component Value Ref Range Activated Clotting Time 251 s Specimen Performing Laboratory MAIN LAB [address] [place] [id number] * POC ACTIVATED CLOTTING TIME (08/12/2017 2:08 PM) Component Value Ref Range Activated Clotting Time 349 s Specimen Performing Laboratory MAIN LAB [address] [place] [id number] * POC ACTIVATED CLOTTING TIME (08/12/2017 1:35 PM) Component Value Ref Range Activated Clotting Time 337 s Specimen Performing Laboratory MAIN LAB [address] [place] [address] * POC ACTIVATED CLOTTING TIME (08/12/2017 1:05 PM) Component Value Ref Range Activated Clotting Time 370 s Specimen Performing Laboratory [facility] [address] [place] [address] in this encounter Visit Diagnoses Diagnosis Coronary artery disease involving [place] 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) - Primary [...] Oral, DAILY, First dose on Sat 08:20 VP PURCHASING 08/12/17 at 1600, Until Discontinued atorvastatin (LIPITOR) tablet 40 mg Given 08/12/2017 40 mg 40 mg, Oral, DAILY, First dose on Sat 22:24 VP PURCHASING 08/12/17 at 1300, Until Discontinued, Admission/Obs/Extended Recovery Given 08/13/2017 40 mg 08:21 VP PURCHASING carisoprodol(+) (SOMA) tablet 350 mg Given 08/12/2017 350 mg 350 mg, Oral, AT BEDTIME DAILY, First 22:24 VP PURCHASING dose on Sat08/12/17 at 2100, Until Discontinued, Admission/Obs/Extended Recovery clopiDOGrel (PLAVIX) tablet 75 mg Given 08/13/2017 75 mg 75 mg, Oral, DAILY, First dose on Sat 08:21 VP PURCHASING 08/13/17 at 0900, Until Discontinued, 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 This Medication can increase the risk of bleeding and may need to be held prior to surgery or invasive procedures. Consult physician in advance. gabapentin (NEURONTIN) capsule 600 mg Given 08/12/2017 600 mg 600 mg, Oral, FOUR TIMES DAILY, First 15:47 VP PURCHASING dose on Sat08/12/17 at 1300, Until Discontinued, Admission/Obs/Extended Recovery Given 08/12/2017 600 mg 22:24 VP PURCHASING Given 08/13/2017 600 mg 08:20 VP PURCHASING HYDROcodone/acetaminophen (NORCO) 5/325 Given 08/12/2017 1 tablet mg tablet 1 tablet 15:47 VP PURCHASING 1 tablet, Oral, EVERY 6 HOURS PRN, Starting Sat08/12/17 at 1156, Until Sat08/13/17 at 1052, Pain PO, TOTAL ACETAMINOPHEN DOSE NOT TO EXCEED 4GM DAILY NOTE: This is a HIGH ALERT Medication. pantoprazole DR (PROTONIX) tablet 40 mg Given 08/12/2017 40 mg 40 mg, Oral, DAILY, First dose on Sat 22:24 VP PURCHASING 08/12/17 at 2100, Until Discontinued, Do not crush or chew tablet. sacubitril/valsartan (ENTRESTO) 24/26 mg Given 08/13/2017 1 tablet tablet 1 tablet 08:21 VP PURCHASING 1 tablet, Oral, TWICE DAILY, First dose on Sat08/13/17 at 0900, Until Discontinued, Admission/Obs/Extended Recovery sodium chloride 0.9 % infusion Given - New 08/12/2017 1,000 mL 50 mL /hr 1,000 mL, 1,000 mL, Intravenous, at 50 Bag 08:38 VP PURCHASING mL/hr, CONTINUOUS, Starting Sat08/12/17 at 0815, Until Sat08/12/17 at 1458, If EF is <40%, contact CCL Charge Nurse [phone] before initiating fluid. sodium chloride 0.9 % infusion Dose/Rate 08/12/2017 75 mL/hr 1,000 mL, Intravenous, at 75 mL/hr, Change 15:41 VP PURCHASING CONTINUOUS, Starting Sat08/12/17 at 1500, Until Sat08/13/17 at 0059, Once patient out of bed, then saline lock and DC IV fluid. Bolus from Infusion 08/12/2017 250 mL 999 mL/hr 17:30 VP PURCHASING Dose/Rate Verify 08/12/2017 75 mL/hr 17:45 VP PURCHASING warfarin (COUMADIN) tablet 7.5 mg Given 08/12/2017 7.5 mg 7.5 mg, Oral, TWO TIMES WEEKLY (Once per 22:25 VP PURCHASING day on Sat), First dose on Sat08/12/17 at 2100, Until Discontinued, NURSING: Provide patient with warfarin education leaflet and video. Do not give with cranberry juice. NOTE: This is a HIGH ALERT Medication. in this encounter
--- OUTSIDE RECORDS SUMMARY | 2017-09-23 01:27 | XMS REPORT | Encounter Summary ---
Author Author [facility] Organization [facility] Address Unknown Phone Unavailable Care Team Providers Care Automotive Sales Manager Name Role Phone Jayro Duran MD 21 Martha Flowers MD PCP Reason for Visit * Auth/Cert (Routine) Status Reason Specialty Diagnoses / Referred By Referred To Procedures Contact Contact Encounter Details Date Type Department Care Team Description 08/12/2017 Surgery Cardiac Catheterization Fredrick Warner MD Percutaneous Coronary Laboratory [address] Intervention of Chronic [address] [place] [address] [place] [address] Coronary Artery [phone] (Retrograde Approach) Social History Tobacco Use Types Packs/Day Years Used Date Current Every Day Smoker Alcohol Use Drinks/Week oz/Week Comments No Sex Assigned at Date Recorded Not on file as of this encounter Last Filed Vital Signs Vital Sign Reading Time Taken Blood Pressure 99/58 08/13/2017 7:35 AM GRADE SCHOOL TEACHER Pulse 76 08/13/2017 7:35 AM GRADE S[employer]OL TEACHER Temperature 37.1 C (98.7 F) 08/13/2017 6:15 AM [employer]ADE S[employer] TEACHER Respiratory Rate - - Oxygen Saturation 97% 08/13/2017 7:35 AM GRADE S[employer]OL TEACHER Inhaled Oxygen - - Concentration Weight 87.5 kg (192 lb 14.4 oz) 08/12/2017 8:13 AM GRADE S[employer]OL TEACHER Height 162.6 cm (5' 4.02") 08/12/2017 8:13 AM GRADE S[employer] TEACHER Body Mass Index 33.1 08/12/2017 8:13 AM GRADE SCHOOL TEACHER in this encounter Discharge Summaries * Karlie Victor PA-C - 08/13/2017 8:00 AM GRADE SCHOOL TEACHER Formatting of this note may be different from the original. Physician Discharge Summary Name: Hoang Linda Date Of : 1970 Age: 47 years Admit date: 08/12/2017 Discharge date: 08/13/2017 Attending Physician: Dr. 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 Successful PCI with a Resolute Integrity 2.5 x 26 mm stent to the OM with Dr. Rhoades. Unsuccessful PCI to the RCA SURVEILLANCE MANAGER. Pt referred to Dr. Warner for possible SURVEILLANCE MANAGER procedure. 08/06/16 - Nuclear stress test ([facility]): No ischemia or arrhythmia on EKG. Diaphragmatic attenuation with reversible ischemia involving the mid to apic Ischemic cardiomyopathy Mild mitral regurgitation 08/07/2017 Mild tricuspid regurgitation 08/07/2017 NSTEMI (non-ST elevated myocardial infarction) ([facility]) 08/07/2017 Protein S deficiency ([facility]) 08/07/2017 Tobacco abuse 08/07/2017 Allergies: Pcn [...] He underwent PCI of OM at [facility] in [place], [place]. He was also found to have SURVEILLANCE MANAGER of RCA. PCI was attempted which [...] prevent stent thrombosis and possible myocardial infarction. CORN CUTTER warfarin was resumed 08/12/17. No bridging is recommended per staff to minimize bleeding complications. PT/INR on Saturday. PT/INR managed by Primary skein straightener. PT/ INR goal 2.0-3.0. Lipid profile as [...] and BP permits. F/u w/ . Primary skein straightener as already scheduled or sooner if needed. He will continue to wear LifeVest. Currently his primary skein straightener is planning to repeat Echo in August. EKG NSR 72 bpm, PVC's. Non specific ST-T changes unchanged from prior. 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 Selective right and left coronary angiograms with dual arterial injections. 2. Bilateral groin accesses, both 7-S[place] T[place]an common femoral arterial. 3. Dual coronary injections. 4. SURVEILLANCE MANAGER PCI of the proximal right RCA [...] and restaurant foods. Call your doctor (your skein straightener, if you have one) if: -you gain more than 2 pounds in 24 hours. -you gain more than 5 pounds in 1 week. -any of your symptoms get worse Do NOT wait to let your doctor know about these changes. Questions About Your Stay For questions or concerns regarding your hospital stay: - DURING BUSINESS HOURS (8:00 AM - 4:30 PM): Call [phone] and asked to be transferred to your discharge attending physician. - AFTER BUSINESS HOURS (4:30 PM - 8:00 AM, on weekends, or holidays): Call [phone] and ask the buffing wheel operator to page the on-call doctor for the discharge attending physician. Discharging attending physician: FREDRICK WARNER [[id number]] Cardiac Diet Limiting unhealthy fats and cholesterol [...] discharge. Return Appointment F/u with your primary skein straightener as already scheduled with echo in August. [facility] Provider JEFFERY RHOADES [[id number]] Heart Failure Information You are at risk [...] 5 pounds in a week, call your skein straightener immediately. EARLY REPORTING OF THESE CHANGES IS [...] Print Associated Diagnoses: Coronary artery disease involving white [place] ak coronary artery of white [place] ak heart with angina pectoris (HCC); Ischemic cardiomyopathy; [...] tablets, call 911. PRESCRIPTION TYPE: Historical Med Gorin-3 Acid Ethyl Esters 1 gram cap Take [...] Referring physicians: Dr. Jeffery Rhoades/Dr. Jayro Duran ([place], [place]) Additional provider(s): in this encounter Discharge Instructions * Patient Instructions - Dayan Easley RN - 08/13/2017 8:32 AM GRADE SCHOOL TEACHER Manual Sheath Removal From A Large [...] to speak with someone? During Business Hours: [facility] Office at the [facility]: [phone] (Saturday-Saturday) [place]: [phone] (Saturday-Saturday) [place]: [phone] (Saturday-Saturday) [place]: [phone] (Saturday and ) [place]: [phone] (Saturday-Saturday) [place]: [phone] (Saturday-Saturday) [place]: [phone] (Saturday-) [facility]: [phone] (Saturday, Saturday and Saturday) [place]: [phone] (Saturday, Saturday and Saturday) Replaced By [facility]): [phone] (Saturday, Saturday and Saturday) Nights and Weekends [facility]iology Office at the [facility]: [phone] This education is meant to serve as a resource to you and your family. It is not meant to be all inclusive. The members of the [facility] at [facility], , will be glad [...] Pain. Max of 3 tablets, call 911. Gorin-3 Acid Ethyl Esters Take 1 g by [...] Take Coronary artery disease with food. involving white [place] ak coronary artery of [place] ak heart with angina pectoris (HCC), Ischemic cardiomyopathy, NSTEMI (non-ST elevated myocardial infarction) (HCC), Tobacco abuse as of this encounter Progress Notes * Wilfredo Gardner RN - 08/13/2017 8:52 AM GRADE SCHOOL TEACHER Cardiac Rehab Call Back Note: Spoke with patient. He will start OPCR in [place] this Saturday. Are you tolerating activity?Yes Is pain controlled?Yes Is appetite normal?Yes Are you having symptoms of heart discomfort?No Are you having signs of infection at your incision sites or groin site?No Do you want outpt cardiac rehab?Yes * Cassidy Tracy RN - 08/13/2017 8:52 AM GRADE SCHOOL TEACHER I have reviewed the notes, assessment, and/or procedures performed by Dayan Easley RN and concur with her/his documentation unless otherwise noted. * Dayan Easley RN - 08/13/2017 8:51 AM GRADE SCHOOL TEACHER Patient discharged to home with all belongings. Discharge instructions, med reconciliation and home wound care instructions given and explained to patient and family both verbally and written. Accompanied by family. No complaints of pain or discomfort. Bilateral groins remains clean, dry, and intact with no evidence of a hematoma after ambulation. Patient escorted to lobby via Transport. Patient to follow up with [facility] ([facility]) or on-call physician with any additional questions or concerns. All contact numbers provided. Patient and family acceptant of DC instuctions and report understanding to all information. * Wilfredo Gardner RN - 08/13/2017 6:46 AM GRADE SCHOOL TEACHER Formatting of this note may be different from the original. CARDIOPULMONARY REHABILITATION INPATIENT ASSESSMENT Cardiac Rehabilitation Staff: Elia Gardner RN Discharge Date: Demographics Pre-admit Dx: Date of Admission: 08/12/2017 Room: [address] : 1970 Insurance: Primary: /BS of Secondary: . 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 ED Contact: Yazmin Maddi ED Phone #: [phone] CTS: DEBORAH Airset Molder: Timmy Cardiac Procedures and Events PCI: 08/12/17 Risk Factors BP: 97/54 Height: 162.6 cm (64.02") Weight: 87.5 kg (192 lb 14.4 oz) BMI (Calculated): 33.09 Medical History has a past medical history of Coronary artery disease involving [place] ak coronary artery of [place] ak heart with angina pectoris (HCC) (08/07/2017); Coronary artery disease involving [place] ak coronary artery of [place] ak heart with angina pectoris (HCC) (08/07/2017); Ischemic cardiomyopathy; Mild mitral regurgitation (08/07/2017); Mild tricuspid regurgitation (08/07/2017); NSTEMI ( non-ST elevated myocardial infarction) ([facility]) (08/07/2017); Protein S deficiency ([facility]) (08/07/2017); and Tobacco abuse (08/07/2017). Labs No results found for: CHOL, TRIG, HDL, LDL, HGBA1C, A1C, TNI Heart Resource Manual Given: 08/13/17 Teaching Completed: 08/13/17 Outpatient Cardiopulmonary Rehabilitation OPCR: Yes Referral Faxed to: [place] Date Faxed: 08/13/17 (Currently enrolled. Update faxed to [facility]) Location: [place], [place] If [facility], Sent to Staff: Wilfredo Gardner RN 08/13/2017 * Wilfredo Gardner, RN - 08/13/2017 6:44 AM GRADE SCHOOL TEACHER Introduced self to patient and gave copy of the Heart Resource Manual pertaining to coronary interventions. He is currently enrolled in the program at [facility] in [place], [place] and will continue when cleared by skein straightener. I have faxed an update to [facility]. * Dayan Easley, RN - 08/12/2017 5:57 PM GRADE SCHOOL TEACHER Formatting of this note may be [...] Boo Pretty MD - 08/12/2017 5:53 PM GRADE SCHOOL TEACHER Mr. Linda was seen and examined in CTR after the SURVEILLANCE MANAGER PCI with a full metal jacket [...] M.D. Fellow in Interventional Cardiology Beeper # [id number] * Cassidy Tracy RN - 08/12/2017 4:45 PM GRADE SCHOOL TEACHER I have reviewed the notes, assessment, and/or procedures performed by Dayan Easley RN and concur with her/his documentation unless otherwise noted. * Karlie Victor PA-C - 08/12/2017 3:04 PM GRADE SCHOOL TEACHER S/p 3 KENNEDY to RCA. Recent [...] DC home in am. F/u with Primary skein straightener as already scheduled or sooner if needed. Maximize treatment for LVD with GDMT as pt. Can tolerate, renal function allows and BP permits. Karlie Victor PA-C (pgr [phone]) * Denisse Vidal, RT - 08/12/2017 11:12 AM GRADE SCHOOL TEACHER Formatting of this note may be [...] Date: 08/12/2017 [place] AC=Airway clearance AM=Aerosolized medication BA=Petty aerosol DB&C=Deep breathe & cough FEV1=Forced expiratory volume in first second) IC=Inspiratory capacity LE=Lung expansion MDI=Metered dose inhaler Neb=Nebulizer O2=Oxygen Oxim=Oximetry PEFR=Peak expiratory flow rate ADOBE BLOCK MAKER=Rapid Response Team * Dayan Easley RN - 08/12/2017 8:01 AM GRADE SCHOOL TEACHER Patient arrived on unit via ambulation accompanied by RN. Patient transferred to the bed without assistance. Assessment completed, refer to flowsheet for details. Orders released, reviewed, and implemented as appropriate. Oriented to surroundings, call light within reach. Plan of care reviewed. Will continue to monitor and assess. in this encounter H&P Notes * Karlie Victor PA-C - 08/12/2017 9:37 AM GRADE SCHOOL TEACHER Formatting of this note may be [...] which is occluded proximally. He has good dwfi-gk-fapkd collateralization to the posterior descending and posterior [...] Diagnosis Date Noted Coronary artery disease involving [place] ak coronary artery of [place] ak heart with angina pectoris (HCC) 08/07/2017 07/12/17 - NSTEMI at [place], [place]. Successful PCI with a Resolute Integrity 2.5 x 26 mm stent to the OM with Dr. Rhoades. Unsuccessful PCI to the RCA SURVEILLANCE MANAGER. Pt referred to Dr. Warner for possible SURVEILLANCE MANAGER procedure. 08/06/16 - Nuclear stress test ([facility]): No ischemia or arrhythmia on EKG. Diaphragmatic attenuation with reversible ischemia involving the mid to apical inferior wall and inferolateral wall. Normal left ventricular size with mild hypokinesis at the lateral wall. EF 50%. Previous history of Promus stent placement to OM - date unknown. NSTEMI (non-ST elevated myocardial infarction) ([facility]) 08/07/2017 07/12/17 at [place], [place]. Tobacco abuse 08/07/2017 Ischemic cardiomyopathy 08/07/2017 07/12/17 - Echo ([facility]): EF 30-35%. Left ventricular cavity size increased. Wall thickness normal. Regional wall motion abnormalities. Akinesis of the inferior myocardium. Akinesis of the lateral myocardium. 07/12/17 - NSTEMI - EF 20%, severe left ventricular systolic function (per cath report). Life Vest applied for primary prevention of sudden cardiac . Mild mitral regurgitation 08/07/2017 Mild tricuspid regurgitation 08/07/2017 Protein S deficiency ([facility]) 08/07/2017 On warfarin. Review of Systems [...] Diagnoses Name Primary? Coronary artery disease involving [place] ak coronary artery of [place] ak heart with angina pectoris (HCC) Yes Ischemic [...] Pain. Max of 3 tablets, call 911. Gorin-3 Acid Ethyl Esters 1 gram cap Take [...] Boo Pretty MD - 08/12/2017 3:12 PM GRADE SCHOOL TEACHER Associated Order(s): CARDIAC CATH REPORT [facility] CARDIAC CATHETERIZATION REPORT Page 3 HOANG Piedra : 1970 [facility]#: [id number] MR #/Billing ID #: [id number] / [id number] DATE: 08/12/2017 AIRPORT TOWER CONTROLLER: Fredrick Warner MD DICTATING PROVIDER: Boo Pretty MD REFERRING PHYSICIAN: MARTHA FLOWERS INTERVENTIONAL NETBACKUP ADMINISTRATOR: Boo Pretty MD. PROCEDURES PERFORMED: 1. Selective right and left coronary angiograms with dual arterial injections. 2. Bilateral groin accesses, both 7-[place] common femoral arterial. 3. Dual coronary injections. 4. Chronic Total Occlusion (SURVEILLANCE MANAGER) PCI of the proximal right RCA extending into the right PLV with 3 drug-eluting stents in overlapping fashion with antegrade wire escalation technique. 5. Right common femoral angiogram, limited. INDICATION FOR THE PROCEDURE: Hoang Linda is a pleasant, 47-year-old gentleman with a history of recent jkh-GS-kfhiuulop MN, status post PCI to his left circumflex extending into his obtuse marginal with a Resolute Integrity stent from an outside institution. There was an attempted antegrade PCI on his RCA SURVEILLANCE MANAGER, which was unsuccessful. We would like [...] PROCEDURE: The patient was brought in the lab assistant in the fasting, nonsedated state. After giving the patient a total of 225 mcg of fentanyl and 5 mg of Versed, we achieved moderate conscious sedation, which was monitored and maintained throughout the procedure for a total of 126 minutes. Respiratory, hemodynamic, and neurological parameters were monitored throughout the procedure by the operators and by the lab assistant staff. The patient was prepped and draped [...] with the intent to perform a retrograde SURVEILLANCE MANAGER PCI, and hence, we obtained dual [...] not. We then switched out for a Field Evidence Technician 200, 0.014 x 300 cm wire and [...] the right PLV and switched out the Field Evidence Technician 200 wire for an 0.014 x 300 [...] the distal edge of the stent with religious of RUSLAN- 3 flow to the PLV. [...] complications, and was transferred out of the lab assistant in stable condition without any chest pain. Dr. Warner, my attending, was scrubbed and performed mccloud portions of the procedure and supervised the rest of it as well. TOTAL CONTRAST USED: 340 mL. TOTAL AIR KERMA: 3528 mGy. Right common femoral angiogram demonstrated a high bifurcation of the right side , and hence, we opted for manual compression method. LESION CHARACTERISTICS: 1. RCA SURVEILLANCE MANAGER ACC/AHA type C lesion. 2. RUSLAN [...] x 12 months. Fredrick Warner MD PCG/MedQ /[id number] cc: - MARTHA FLOWERS in this encounter Plan of Treatment Not on fileas of this encounter Procedures Procedure Name Priority Date/Time Associated Diagnosis Comments TELEMETRY STRIPS-SCAN 08/21/2017 Results for this 2:42 PM GRADE SCHOOL TEACHER procedure are in the results section. PROCEDURE RECORD-SCAN 08/21/2017 Results for this 1:47 PM GRADE SCHOOL TEACHER procedure are in the results section. ECG-SCAN 08/21/2017 Results for this 10:46 AM GRADE SCHOOL TEACHER procedure are in the results section. ECG-SCAN 08/13/2017 Results for this 7:30 AM GRADE SCHOOL TEACHER procedure are in the results section. ECG-SCAN 08/12/2017 Results for this 9:40 PM GRADE SCHOOL TEACHER procedure are in the results section. [...] Boo Pretty MD - 08/12/2017 3:12 PM GRADE SCHOOL TEACHER [facility] CARDIAC CATHETERIZATION REPORT Page 3 HOANG Piedra : 1970 [facility]#: [id number] [facility] MR #/Billing ID #: [id number] / [id number] DATE: 08/12/2017 AIRPORT TOWER CONTROLLER: Fredrick Warner MD DICTATING PROVIDER: Boo Pretty MD REFERRING PHYSICIAN: MARTHA FLOWERS INTERVENTIONAL NETBACKUP ADMINISTRATOR: Boo Pretty MD. PROCEDURES PERFORMED: 1. Selective right and left coronary angiograms with dual arterial injections. 2. Bilateral groin accesses, both 7-[place] common femoral arterial. 3. Dual coronary injections. 4. Chronic Total Occlusion (SURVEILLANCE MANAGER) PCI of the proximal right RCA extending into the right PLV with 3 drug-eluting stents in overlapping fashion with antegrade wire escalation technique. 5. Right common femoral angiogram, limited. INDICATION FOR THE PROCEDURE: Hoang Linda is a pleasant, 47-year-old gentleman with a history of recent jer-DM-mfwjhsjvi MN, status post PCI to his left circumflex extending into his obtuse marginal with a Resolute Integrity stent from an outside institution. There was an attempted antegrade PCI on his RCA SURVEILLANCE MANAGER, which was unsuccessful. We would like [...] PROCEDURE: The patient was brought in the lab assistant in the fasting, nonsedated state. After giving the patient a total of 225 mcg of fentanyl and 5 mg of Versed, we achieved moderate conscious sedation, which was monitored and maintained throughout the procedure for a total of 126 minutes. Respiratory, hemodynamic, and neurological parameters were monitored throughout the procedure by the operators and by the lab assistant staff. The patient was prepped and draped [...] with the intent to perform a retrograde SURVEILLANCE MANAGER PCI, and hence, we obtained dual [...] not. We then switched out for a Field Evidence Technician 200, 0.014 x 300 cm wire and [...] the right PLV and switched out the Field Evidence Technician 200 wire for an 0.014 x 300 [...] the distal edge of the stent with religious of RUSLAN- 3 flow to the PLV. [...] complications, and was transferred out of the lab assistant in stable condition without any chest pain. Dr. Warner, my attending, was scrubbed and performed mccloud portions of the procedure and supervised the rest of it as well. TOTAL CONTRAST USED: 340 mL. TOTAL AIR KERMA: 3528 mGy. Right common femoral angiogram demonstrated a high bifurcation of the right side , and hence, we opted for manual compression method. LESION CHARACTERISTICS: 1. RCA SURVEILLANCE MANAGER ACC/AHA type C lesion. 2. RUSLAN [...] x 12 months. Fredrick Warner MD PCG/MedQ /[id number] cc: - MARTHA FLOWERS * ECG-SCAN (08/13/2017 [...] Specimen Performing Laboratory Blood MAIN LAB [address] [place] [address] * BASIC METABOLIC PANEL (08/13/2017 3:45 AM) [...] questions. Specimen Performing Laboratory Blood MAIN LAB [address] [place] [address] * PROTIME INR (PT) (08/13/2017 3:45 AM) Component Value Ref Range INR 1.1 0.8 - 1.2 Specimen Performing Laboratory Blood MAIN LAB [address] [place] [id number] * ECG-SCAN (08/12/2017 9:40 PM) Narrative Ordered by an unspecified provider. * POC ACTIVATED CLOTTING TIME (08/12/2017 4:49 PM) Component Value Ref Range Activated Clotting Time 162 s Specimen Performing Laboratory MAIN LAB [address] [place] [address] * POC ACTIVATED CLOTTING TIME (08/12/2017 4:18 PM) Component Value Ref Range Activated Clotting Time 186 s Specimen Performing Laboratory MAIN LAB [address] [place] [address] * POC ACTIVATED CLOTTING TIME (08/12/2017 4:00 PM) Component Value Ref Range Activated Clotting Time 183 s Specimen Performing Laboratory MAIN LAB [address] [place] [address] * POC ACTIVATED CLOTTING TIME (08/12/2017 2:55 PM) Component Value Ref Range Activated Clotting Time 400 s Specimen Performing Laboratory MAIN LAB [address] [place] [address] * POC ACTIVATED CLOTTING TIME (08/12/2017 2:34 PM) Component Value Ref Range Activated Clotting Time 251 s Specimen Performing Laboratory MAIN LAB [address] [place] [address] * POC ACTIVATED CLOTTING TIME (08/12/2017 2:08 PM) Component Value Ref Range Activated Clotting Time 349 s Specimen Performing Laboratory MAIN LAB [address] [place] [address] * POC ACTIVATED CLOTTING TIME (08/12/2017 1:35 PM) Component Value Ref Range Activated Clotting Time 337 s Specimen Performing Laboratory MAIN LAB [address] [place] [address] * POC ACTIVATED CLOTTING TIME (08/12/2017 1:05 PM) Component Value Ref Range Activated Clotting Time 370 s Specimen Performing Laboratory [facility] MAIN LAB [address] [place] [address] in this encounter Visit Diagnoses Not on filein this encounter Admitting Diagnoses Diagnosis Chronic Total Occlusion CAD (coronary artery disease) Administered Medications Medication Order MAR Action Action Date Dose Rate Site aspirin chewable tablet 81 mg Given 08/13/2017 81 mg 81 mg, Oral, DAILY, First dose on Sat 08:20 GRADE SCHOOL TEACHER 08/12/17 at 1600, Until Discontinued atorvastatin (LIPITOR) tablet 40 mg Given 08/12/2017 40 mg 40 mg, Oral, DAILY, First dose on Sat 22:24 GRADE SCHOOL TEACHER 08/12/17 at 1300, Until Discontinued, Admission/Obs/Extended Recovery Given 08/13/2017 40 mg 08:21 GRADE SCHOOL TEACHER carisoprodol(+) (SOMA) tablet 350 mg Given 08/12/2017 350 mg 350 mg, Oral, AT BEDTIME DAILY, First 22:24 GRADE SCHOOL TEACHER dose on Sat08/12/17 at 2100, Until Discontinued, Admission/Obs/Extended Recovery clopiDOGrel (PLAVIX) tablet 75 mg Given 08/13/2017 75 mg 75 mg, Oral, DAILY, First dose on Sat 08:21 GRADE SCHOOL TEACHER 08/13/17 at 0900, Until Discontinued, Clopidogrel (PLAVIX) load given in lab assistant. This Medication can increase the risk of bleeding and may need to be held prior to surgery or invasive procedures. Consult physician in advance. gabapentin (NEURONTIN) capsule 600 mg Given 08/12/2017 600 mg 600 mg, Oral, FOUR TIMES DAILY, First 15:47 GRADE SCHOOL TEACHER dose on Sat08/12/17 at 1300, Until Discontinued, Admission/Obs/Extended Recovery Given 08/12/2017 600 mg 22:24 GRADE SCHOOL TEACHER Given 08/13/2017 600 mg 08:20 GRADE SCHOOL TEACHER HYDROcodone/acetaminophen (NORCO) 5/325 Given 08/12/2017 1 tablet mg tablet 1 tablet 15:47 GRADE SCHOOL TEACHER 1 tablet, Oral, EVERY 6 HOURS PRN, Starting Sat08/12/17 at 1156, Until Sat08/13/17 at 1052, Pain PO, TOTAL ACETAMINOPHEN DOSE NOT TO EXCEED 4GM DAILY NOTE: This is a HIGH ALERT Medication. pantoprazole DR (PROTONIX) tablet 40 mg Given 08/12/2017 40 mg 40 mg, Oral, DAILY, First dose on Mon 22:24 GRADE SCHOOL TEACHER 08/12/17 at 2100, Until Discontinued, Do not crush or chew tablet. sacubitril/valsartan (ENTRESTO) 24/26 mg Given 08/13/2017 1 tablet tablet 1 tablet 08:21 GRADE SCHOOL TEACHER 1 tablet, Oral, TWICE DAILY, First dose on Sat08/13/17 at 0900, Until Discontinued, Admission/Obs/Extended Recovery sodium chloride 0.9 % infusion Given - New 08/12/2017 1,000 mL 50 mL /hr 1,000 mL, 1,000 mL, Intravenous, at 50 Bag 08:38 GRADE SCHOOL TEACHER mL/hr, CONTINUOUS, Starting Sat08/12/17 at 0815, Until Sat08/12/17 at 1458, If EF is <40%, contact CCL Charge Nurse [phone]) before initiating fluid. sodium chloride 0.9 % infusion Dose/Rate 08/12/2017 75 mL/hr 1,000 mL, Intravenous, at 75 mL/hr, Change 15:41 GRADE SCHOOL TEACHER CONTINUOUS, Starting Sat08/12/17 at 1500, Until Sat08/13/17 at 0059, Once patient out of bed, then saline lock and DC IV fluid. Bolus from Infusion 08/12/2017 250 mL 999 mL/hr 17:30 GRADE SCHOOL TEACHER Dose/Rate Verify 08/12/2017 75 mL/hr 17:45 GRADE SCHOOL TEACHER warfarin (COUMADIN) tablet 7.5 mg Given 08/12/2017 7.5 mg 7.5 mg, Oral, TWO TIMES WEEKLY (Once per 22:25 GRADE SCHOOL TEACHER day on Sat), First dose on Sat08/12/17 at 2100, Until Discontinued, NURSING: Provide patient with warfarin education leaflet and video. Do not give with cranberry juice. NOTE: This is a HIGH ALERT Medication. in this encounter
--- OUTSIDE RECORDS SUMMARY | 2017-09-23 01:27 | XMS REPORT | Encounter Summary ---
Author Author [facility] Organization [facility] Address Unknown Phone Unavailable Care Team Providers Care Pole Frame Construction Worker Name Role Phone Jayro Duran MD 21 John Flowers MD PCP Reason for Visit * Auth/Cert (Routine) Status Reason Specialty Diagnoses / Referred By Referred To Procedures Contact Contact Encounter Details Date Type Department Care Team Description 08/12/2017 [facility] Cardiology Seth Warner MD Encounter [address] [place] [address] [place] [address] [place] [address] [phone] Social History Tobacco Use Types Packs/Day Years [...] Pain. Max of 3 tablets, call 911. 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 Take with food. as of this encounter Plan of Treatment Not on fileas of this encounter Visit Diagnoses Not on filein this encounter
--- OUTSIDE RECORDS SUMMARY | 2017-09-23 01:27 | XMS REPORT | Encounter Summary ---
Author Author [facility] Organization [facility] Address Unknown Phone Unavailable Care Team Providers Care Bessemer Converter Blower Name Role Phone Jayro Duran MD 21 Reason for Visit * Reason Comments New Patient patient profile Encounter Details Date Type Department Care Team Description 08/07/2017 Patient Profile [facility] Alee Awad, RN New Patient (patient [address] profile) [address] [place] [address] Social History Tobacco Use Types Packs/Day Years Used Date Current Every Day Smoker Alcohol Use Drinks/Week oz/Week Comments No Sex Assigned at Date Recorded Not on file as of this encounter Plan of Treatment Not on fileas of this encounter Visit Diagnoses Diagnosis Protein S deficiency (HCC) Primary hypercoagulable state
--- OUTSIDE RECORDS SUMMARY | 2017-09-23 01:27 | XMS REPORT | Encounter Summary ---
Author Author [facility] Organization [facility] Address Unknown Phone Unavailable Care Team Providers Care Brick Machine Operator Name Role Phone Jayro Duran MD 21 John Flowers MD PCP Reason for Visit * Auth/Cert (Routine) Status Reason Specialty Diagnoses / Referred By Referred To Procedures Contact Contact Encounter Details Date Type Department Care Team Description 08/12/2017 [facility] Luna Dee APRN Atherosclerotic heart Encounter [address] [place] [address] [place] [address] [place] [address] unspecified angina [phone] pectoris ([facility]) Social History Tobacco Use Types [...] Pain. Max of 3 tablets, call 911. 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
--- OUTSIDE RECORDS SUMMARY | 2017-09-23 01:27 | XMS REPORT | Encounter Summary ---
Author Author [facility] Organization [facility] Address Unknown Phone Unavailable Care Team Providers Care Hvac Design Mechanical Engineer Name Role Phone Jayro Duran MD 21 Reason for Visit * Reason Comments Appointment cath & OV same day Encounter Details Date Type Department Care Team Description 08/07/2017 Telephone [facility] Cardiology Alee Awad RN Appointment (cath & OV [address] [place] same day) [address] [place] [address] Social History Tobacco Use Types Packs/Day Years Used Date Current Every Day Smoker Alcohol Use Drinks/Week oz/Week Comments No Sex Assigned at Date Recorded Not on file as of this encounter Miscellaneous Notes * Telephone Encounter - Alee Awad RN - 08/08/2017 1:35 PM AQUATIC DIRECTOR BLACKING MACHINE OPERATOR cath date confirmed for this 08/12 - confirmed with Dr. Warner and with spouse. * Telephone Encounter - Alee Awad RN - 08/07/2017 2:37 PM AQUATIC DIRECTOR Connected with patient's spouse, Yazmin, over the [...] Alee Awad RN - 08/07/2017 2:36 PM AQUATIC DIRECTOR ----- Message from Meredith Yoder sent at 08/07/2017 1:23 PM AQUATIC DIRECTOR ----- Regarding: apt request Call pt back at [phone] Yazmin if it's before 3 in this encounter Plan of Treatment Not on fileas of this encounter Visit Diagnoses Not on filein this encounter
--- OUTSIDE RECORDS SUMMARY | 2017-09-23 01:27 | XMS REPORT | Encounter Summary ---
Author Author [facility] Organization [facility] Address Unknown Phone Unavailable Care Team Providers Care Merchandise Adjustment Clerk Name Role Phone Jayro Duran MD 21 John Flowers MD PCP Reason for Visit * Reason Comments Labs Only CBC/BMP (creat clearance 149.06) Encounter Details Date Type Department Care Team Description 08/09/2017 Documentation [facility] Alee Awad RN Labs Only (CBC/BMP (creat [address] [place] clearance 149.06) ) [address] [place] [address] Social History Tobacco Use Types Packs/Day Years [...] RDW 13.9 Specimen Performing [place] [address] * BASIC METABOLIC PANEL (08/09/2017) Component Value Ref Range Sodium 142 Potassium 4.5 Chloride 105 CO2 27 Blood Urea Nitrogen 16 Creatinine 0.74 Glucose 100 Calcium 10.0 eGFR Non >60 eGFR Anion Gap 10 Specimen Performing [place] [address] in this encounter Visit Diagnoses Diagnosis Pre-procedure lab exam Pre-procedural laboratory examination Coronary artery disease involving [place] coronary artery of [place] heart with angina pectoris (HCC)
--- OUTSIDE RECORDS SUMMARY | 2017-09-23 01:27 | XMS REPORT | Encounter Summary ---
Author Author [facility] Organization [facility] Address Unknown Phone Unavailable Care Team Providers Care Instructor Dramatic Arts Name Role Phone Jayro Duran MD 21 John Flowers MD PCP Encounter Details Date Type Department Care Team Description 08/12/2017 Orders Only [facility] Alee Awad, window glass cutter off anticoagulation [address] (Primary Dx) [address] [place] [address] Social History Tobacco Use Types Packs/Day Years Used Date Current Every Day Smoker Alcohol Use Drinks/Week oz/Week Comments No Sex Assigned at Date Recorded Not on file as of this encounter Plan of Treatment Not on fileas of this encounter Visit Diagnoses Diagnosis Chronic anticoagulation - Primary Long-term (current) use of anticoagulants
--- OUTSIDE RECORDS SUMMARY | 2017-09-23 01:27 | XMS REPORT | Encounter Summary ---
Author Author [facility] Organization [facility] Address Unknown Phone Unavailable Care Team Providers Care Shoe Sticks Repairer Name Role Phone Jayro Duran MD 21 John Flowers MD PCP Encounter Details Date Type Department Care Team Description 08/12/2017 [facility]atheter[facility] [address] [place] [address] Social History Tobacco Use Types Packs/Day Years Used Date Current Every Day Smoker Alcohol Use Drinks/Week oz/Week Comments No Sex Assigned at Date Recorded Not on file as of this encounter Plan of Treatment Not on fileas of this encounter Visit Diagnoses Not on filein this encounter
--- OUTSIDE RECORDS SUMMARY | 2017-09-23 01:27 | XMS REPORT | Encounter Summary ---
Author Author [facility] Organization [facility] Address Unknown Phone Unavailable Care Team Providers Care Light Industrial Supervisor Name Role Phone Jayro Duran MD 21 Reason for Visit * Reason Comments Precertification Approval [place] L[place]ORS through [employer] [place] Encounter Details Date Type Department Care Team Description 08/08/2017 Documentation [facility] Favian Smith, RN Precertification [address] (Approval for LVCORS [address] through [employer] [place]) [place] [address] Social History Tobacco Use Types Packs/Day Years Used Date Current Every Day Smoker Alcohol Use Drinks/Week oz/Week Comments No Sex Assigned at Date Recorded Not on file as of this encounter Progress Notes * Favian Smith, RN - 08/08/2017 1:57 PM ELECTRIC TRACK SWITCH MAINTAINER [place] with [employer] [place] for [place] [phone], confirmed benefits and eligibility: Current and active since 04/26/2016, $2750 deductible with required co-insurance of 25% to max OOP $6850, then plan will pay 100% of allowable charges. No pre-certification is required for LVCORS with PCI of [place] [id number]. Reference #[id number] in this encounter Plan of Treatment Not on fileas of this encounter Visit Diagnoses Not on filein this encounter
--- OUTSIDE RECORDS SUMMARY | 2017-09-23 01:27 | XMS REPORT | Encounter Summary ---
Author Author [facility] Organization [facility] Address Unknown Phone Unavailable Care Team Providers Care Regional Environmental Manager Name Role Phone Jayro Duran MD 21 John Flowers MD PCP Reason for Visit * Reason Comments Cardiac Eval * Auth/Cert (Routine) Status Reason Specialty Diagnoses / Referred By Referred To Procedures Contact Contact Encounter Details Date Type Department Care Team Description 08/12/2017 Office Visit [facility] Seth Warner MD Cardiac Eval [address] [place] [address] [place] [address] [place] [address] [phone] Social History Tobacco Use Types Packs/Day Years Used Date Current Every Day Smoker Alcohol Use Drinks/Week oz/Week Comments No Sex Assigned at Date Recorded Not on file as of this encounter Last Filed Vital Signs Vital Sign Reading Time Taken Blood Pressure 116/68 08/12/2017 7:18 AM PROGRAM DIRECTOR CABLE TELEVISION Pulse 79 08/12/2017 7:18 AM PROGRAM DIRECTOR CABLE TELEVISION Temperature - - Respiratory Rate - - Oxygen Saturation - - Inhaled Oxygen - - Concentration Weight 87.1 kg (192 lb) 08/12/2017 7:18 AM PROGRAM DIRECTOR CABLE TELEVISION Height 162.6 cm (5' 4") 08/12/2017 7:18 AM PROGRAM DIRECTOR CABLE TELEVISION Body Mass Index 32.96 08/12/2017 7:18 AM PROGRAM DIRECTOR CABLE TELEVISION in this encounter Progress Notes * Seth Warner MD - 08/12/2017 7:15 AM PROGRAM DIRECTOR CABLE TELEVISION Formatting of this note may be different [...] which is occluded proximally. 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 Successful PCI with a Resolute Integrity 2.5 x 26 mm stent to the OM with Dr. Rhoades. Unsuccessful PCI to the RCA STIFF NECK LOADER. Pt referred to Dr. Warner for possible STIFF NECK LOADER procedure. 08/06/16 - Nuclear stress test ([facility]): No ischemia or arrhythmia on EKG. Diaphragmatic attenuation with reversible ischemia involving the mid to apical inferior wall and inferolateral wall. Normal left ventricular size with mild hypokinesis at the lateral wall. EF 50%. Previous history of Promus stent placement to - date unknown. NSTEMI (non-ST elevated myocardial infarction) ([facility]) 08/07/2017 07/12/17 at [facility] in [place], [place]. Tobacco abuse 08/07/2017 Ischemic cardiomyopathy 08/07/2017 07/12/17 - Echo ([facility]): EF 30-35%. Left ventricular cavity size [...] Diagnoses Name Primary? Coronary artery disease involving [place] coronary artery of [place] heart with angina pectoris (HCC) Yes Ischemic [...] Pain. Max of 3 tablets, call 911. [place]-3 Acid Ethyl Esters 1 gram cap Take [...] - Yazmin Starks - 08/12/2017 11:56 AM PROGRAM DIRECTOR CABLE TELEVISION Addended by: YAZMIN STARKS on: 08/12/2017 11:56 AM Modules accepted: Orders in this encounter Plan of Treatment Name Priority Associated Diagnoses Order Schedule ECG 12-LEAD Routine Coronary artery disease Ordered: 08/12/2017 involving [place] coronary artery of [place] heart with angina pectoris (HCC) Ischemic cardiomyopathy as of this encounter Visit Diagnoses Diagnosis Coronary artery disease involving [place] coronary artery of [place] heart with angina pectoris (HCC) - Primary Ischemic cardiomyopathy Other specified forms of chronic ischemic heart disease Mild mitral regurgitation Mitral valve disorders
--- OUTSIDE RECORDS SUMMARY | 2017-09-23 01:28 | XMS REPORT | Encounter Summary ---
Author Author [facility] Organization [facility] Address Unknown Phone Unavailable Care Team Providers Care Veterinary Medicine Doctor Name Role Phone Jayro Duran MD 21 Reason for Visit * Reason Comments Referral POWER PRESS TENDER - Dr. Warner Encounter Details Date Type Department Care Team Description 07/24/2017 Telephone [facility] Cardiology Alee Awad extension agent (POWER PRESS TENDER - [address]) [facility] [address] [place] [address] Social History Tobacco Use Types Packs/Day Years Used Date Never Assessed Sex Assigned at Date Recorded Not on file as of this encounter Miscellaneous Notes * Telephone Encounter - Anali Gonzalez RN - 08/06/2017 3:26 PM SUCTION DRUM DRIER OPERATOR Rec'd vm from Dr. Rhoades's nurse, Dayan mcdaniels: referral for pt POWER PRESS TENDER PCI. Dr. Warner also advised he spoke with Dr. Rhoades and wants to proceed with OV/PCI same day. Contacted Dr. Rhoades's nurse back with this information. Nurse gave a better contact number for pt of [phone]. Msg sent to Dr. Warner's admin to work in pt for OV before PCI. Will contact pt to schedule OV and PCI. * Telephone Encounter - Alee Awad RN - 08/05/2017 2:57 PM SUCTION DRUM DRIER OPERATOR Voicemail received from Malgorzata - pt's last [...] Alee Awad RN - 08/01/2017 6:51 PM SUCTION DRUM DRIER OPERATOR Dr. Warner reviewed cath images this afternoon. [...] Alee Awad RN - 07/30/2017 11:32 AM SUCTION DRUM DRIER OPERATOR CD not yet received. Connected with Malgorzata at Dr. Duran's office over the phone this morning to check in. She states she will call the hospital to ensure they have been mailed. If they haven't, asked that they please be sent via GLO overnight. She will keep us posted. Malgorzata phone: , fax: * Telephone Encounter - Alee Awad RN - 07/24/2017 3:41 PM SUCTION DRUM DRIER OPERATOR Per Favian, no precert is needed for the cath procedure. Will await the cath images on CD. Called Malgorzata to update her that we will plan to schedule OV and cath on the same day once Dr. Warner has reviewed the images. * Telephone Encounter - Alee Awad RN - 07/24/2017 12:14 PM SUCTION DRUM DRIER OPERATOR Received a referral for possible POWER PRESS TENDER procedure with Dr. Warner from Dr. Duran in [place], [place]. Checking with Favian about insurance precert then will schedule the patient accordingly. Prefer to schedule H&P and cath on the same day due to the patient drive and Dr. Warner's limited clinic availability and to expedite getting pt to procedure. Will await the feedback. Paper records received from LILA Mcgarry. She is sending the cath images on CD via GLO. We will need Dr. Warner to review the images before patient is scheduled - to assess whether pt is a candidate for high risk PCI. in this encounter Plan of Treatment Not on fileas of this encounter Visit Diagnoses Not on filein this encounter
--- OUTSIDE RECORDS SUMMARY | 2017-09-23 01:31 | XMS REPORT | Continuity of Care Document ---
Author Author [facility] Address Unknown Phone Unavailable Allergies Active Description Code Type Severity Reaction Onset Reported/Identified Relationship to Patient Clinical Status Yes Penicillins [id number] Drug Allergy Mild N/A 01/27/2009 Yes Penicillins [...] INFARCT 09/24/2012 Ot 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[place] CORON 09/24/2012 Ot 786.50 CHEST PAIN NOS [...] Ot E000.8 OTHER EXTERNAL CAUSE STATUS 01/09/2013 YVTETE ENRIQUE, MENDOZA Gruber Ot E849.0 ACCIDENT IN [...] NOS 01/22/2016 Ot 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[place] CORON 01/22/2016 Ot 401.9 HYPERTENSION NOS 01/22/2016 Ot 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[place] CORON 01/22/2016 Ot 428.0 CONGESTIVE HEART FAILURE NOS 01/22/2016 Ot 719.40 JOINT PAIN- UNSPEC 01/22/2016 Ot 782.3 EDEMA 01/22/2016 Ot V58.61 ANTICOAGULANTS,LT,CURRENT USE 01/22/2016 VIANEY [employer] Ot F17.210 NICOTINE DEPENDENCE, CIGARETTES, UNCOMPL 01/22/2016 VIANEY [employer] Ot M25.511 PAIN IN RIGHT SHOULDER 02/24/2016 JEFFERY DE SOUZA MD Ot I82.403 ACUTE EMBOLISM AND THOMBOS UNSP DEEP VEI 02/24/2016 JEFFERY DE SOUZA MD Ot Z79.01 PROPERTY ANALYST (CURRENT) USE OF ANTICOAGULANT 04/09/2016 JEFFERY DE SOUZA MD Ot I82.403 ACUTE EMBOLISM AND THOMBOS UNSP DEEP VEI 04/09/2016 JEFFERY DE SOUZA MD Ot Z79.01 INTERMEDIATE (CURRENT) USE OF ANTICOAGULANT 05/22/2016 JEFFERY DE SOUZA MD Ot I82.403 ACUTE EMBOLISM AND THOMBOS UNSP DEEP VEI 05/22/2016 JEFFERY DE SOUZA MD Ot Z79.01 INTERMEDIATE (CURRENT) USE OF ANTICOAGULANT 06/01/2016 Ot 414.00 CORON ATHEROSCLER NOS TYPE VESSEL, NATIV 06/01/2016 Ot 786.50 CHEST PAIN NOS 06/01/2016 Ot 397.0 TRICUSPID VALVE DISEASE 06/01/2016 Ot 414.00 CORON ATHEROSCLER NOS TYPE VESSEL, NATIV 06/01/2016 Ot 424.0 MITRAL VALVE DISORDER 06/01/2016 Ot 786.50 CHEST PAIN NOS 06/01/2016 Ot 272.4 HYPERLIPIDEMIA NEC/NOS 06/01/2016 Ot 401.9 HYPERTENSION NOS 06/01/2016 Ot 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[place] CORON 06/01/2016 Ot 401.9 HYPERTENSION NOS 06/01/2016 Ot 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[place] CORON 06/01/2016 Ot 428.0 CONGESTIVE HEART FAILURE NOS 06/01/2016 Ot 719.40 JOINT PAIN- UNSPEC 06/01/2016 Ot 782.3 EDEMA 06/01/2016 Ot V58.61 ANTICOAGULANTS,LT,CURRENT USE 06/04/2016 JEFFERY DE SOUZA MD Ot I82.403 ACUTE EMBOLISM AND THOMBOS UNSP DEEP VEI 06/04/2016 JEFFERY DE SOUZA MD Ot Z79.01 INTERMEDIATE (CURRENT) USE OF ANTICOAGULANT 07/16/2016 JEFFERY DE SOUZA MD Ot I82.403 ACUTE EMBOLISM AND THOMBOS UNSP DEEP VEI 07/16/2016 JEFFERY DE SOUZA MD Ot Z79.01 INTERMEDIATE (CURRENT) USE OF ANTICOAGULANT 07/26/2016 Ot 414.00 CORON ATHEROSCLER NOS TYPE VESSEL, NATIV 07/26/2016 Ot 786.50 CHEST PAIN NOS 07/26/2016 Ot 397.0 TRICUSPID VALVE DISEASE 07/26/2016 Ot 414.00 CORON ATHEROSCLER NOS TYPE VESSEL, NATIV 07/26/2016 Ot 424.0 MITRAL VALVE DISORDER 07/26/2016 Ot 786.50 CHEST PAIN NOS 07/26/2016 Ot 272.4 HYPERLIPIDEMIA NEC/NOS 07/26/2016 Ot 401.9 HYPERTENSION NOS 07/26/2016 Ot 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[place] CORON 07/26/2016 Ot 401.9 HYPERTENSION NOS 07/26/2016 Ot 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[place] CORON 07/26/2016 Ot 428.0 CONGESTIVE HEART FAILURE NOS 07/26/2016 Ot 719.40 JOINT PAIN- UNSPEC 07/26/2016 Ot 782.3 EDEMA 07/26/2016 Ot V58.61 ANTICOAGULANTS,LT,CURRENT USE 07/26/2016 JEFFERY DE SOUZA MD Ot I82.403 ACUTE EMBOLISM AND THOMBOS UNSP DEEP VEI 07/26/2016 JEFFERY DE SOUZA MD Ot Z79.01 PROPERTY ANALYST (CURRENT) USE OF ANTICOAGULANT 07/27/2016 JEFFERY DE SOUZA MD Ot I11.0 HYPERTENSIVE HEART DISEASE WITH HEART FA 07/27/2016 JEFFERY DE SOUZA MD Ot I25.10 ATHSCL HEART DISEASE OF [place] CORONARY 07/27/2016 JEFFERY DE SOUZA MD Ot [...] NOS 08/06/2016 Ot 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[place] CORON 08/06/2016 Ot 401.9 HYPERTENSION NOS 08/06/2016 Ot 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[place] CORON 08/06/2016 Ot 428.0 CONGESTIVE HEART FAILURE NOS 08/06/2016 Ot 719.40 JOINT PAIN- UNSPEC 08/06/2016 Ot 782.3 EDEMA 08/06/2016 Ot V58.61 ANTICOAGULANTS,LT,CURRENT USE 08/06/2016 JEFFERY DE SOUZA MD Ot I82.403 ACUTE EMBOLISM AND THOMBOS UNSP DEEP VEI 08/06/2016 JEFFERY DE SOUZA MD Ot Z79.01 PROPERTY ANALYST (CURRENT) USE OF ANTICOAGULANT 08/06/2016 JEFFERY DE SOUZA MD Ot I11.0 HYPERTENSIVE HEART DISEASE WITH HEART FA 08/06/2016 JEFFERY DE SOUZA MD Ot I25.10 ATHSCL HEART DISEASE OF [place] CORONARY 08/06/2016 JEFFERY DE SOUZA MD Ot I26.99 OTHER PULMONARY EMBOLISM WITHOUT ACUTE C 08/06/2016 JEFFERY DE SUOZA MD Ot I50.9 HEART FAILURE, UNSPECIFIED 08/06/2016 JEFFERY DE SOUZA MD Ot I82.409 ACUTE EMBOLISM AND THOMBOS UNSP DEEP VN 08/06/2016 JEFFERY DE SOUZA MD Ot R07.9 CHEST PAIN, UNSPECIFIED 08/07/2016 JEFFERY DE SOUZA MD Ot I25.10 ATHSCL HEART DISEASE OF [place] CORONARY 08/07/2016 JEFFERY DE SOUZA MD Ot I50.9 HEART FAILURE, UNSPECIFIED 08/07/2016 JEFFERY DE SOUZA MD Ot R07.9 CHEST PAIN, UNSPECIFIED 08/07/2016 JEFFERY DE SOUZA MD Ot I25.10 ATHSCL HEART DISEASE OF [place] CORONARY 08/07/2016 JEFFERY DE SOUZA MD Ot [...] NOS 08/08/2016 Ot 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[place] CORON 08/08/2016 Ot 401.9 HYPERTENSION NOS 08/08/2016 Ot 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[place] CORON 08/08/2016 Ot 428.0 CONGESTIVE HEART FAILURE NOS 08/08/2016 Ot 719.40 JOINT PAIN- UNSPEC 08/08/2016 Ot 782.3 EDEMA 08/08/2016 Ot V58.61 ANTICOAGULANTS,LT,CURRENT USE 08/08/2016 JEFFERY DE SOUZA MD Ot I82.403 ACUTE EMBOLISM AND THOMBOS UNSP DEEP VEI 08/08/2016 JEFFERY DE SOUZA MD Ot Z79.01 INTERMEDIATE (CURRENT) USE OF ANTICOAGULANT 08/08/2016 JEFFERY DE SOUZA MD Ot I11.0 HYPERTENSIVE HEART DISEASE WITH HEART FA 08/08/2016 JEFFERY DE SOUZA MD Ot I25.10 ATHSCL HEART DISEASE OF [place] CORONARY 08/08/2016 JEFFERY DE SOUZA MD Ot I26.99 OTHER PULMONARY EMBOLISM WITHOUT ACUTE C 08/08/2016 JEFFERY DE SOUZA MD Ot I50.9 HEART FAILURE, UNSPECIFIED 08/08/2016 JEFFERY DE SOUZA MD Ot I82.409 ACUTE EMBOLISM AND THOMBOS UNSP DEEP VN 08/08/2016 JEFFERY DE SOUZA MD Ot R07.9 CHEST PAIN, UNSPECIFIED 08/08/2016 JEFFERY DE SOUZA MD Ot I25.10 ATHSCL HEART DISEASE OF [place] CORONARY 08/08/2016 JEFFERY DE SOUZA MD Ot I50.9 HEART FAILURE, UNSPECIFIED 08/08/2016 JEFFERY DE SOUZA MD Ot R07.9 CHEST PAIN, UNSPECIFIED 08/08/2016 JEFFERY DE SOUZA MD Ot I11.0 HYPERTENSIVE HEART DISEASE WITH HEART FA 08/08/2016 EJFFERY DE SOUZA MD Ot I25.10 ATHSCL HEART DISEASE OF [place] CORONARY 08/08/2016 JEFFERY DE SOUZA MD Ot [...] MD Ot I25.10 ATHSCL HEART DISEASE OF [place] CORONARY 08/08/2016 JEFFERY DE SOUZA MD Ot R07.89 OTHER CHEST PAIN 08/08/2016 JEFFERY DE SOUZA MD Ot R94.39 ABNORMAL RESULT OF OTHER CARDIOVASCULAR 08/08/2016 JEFFERY DE SOUZA MD Ot Z79.01 INTERMEDIATE (CURRENT) USE OF ANTICOAGULANT 08/08/2016 JEFFERY DE SOUZA MD Ot Z79.899 OTHER INTERMEDIATE (CURRENT) DRUG THERAPY 08/08/2016 JEFFERY DE SOUZA MD Ot Z86.718 PERSONAL HISTORY OF OTHER VENOUS THROMBO 08/08/2016 JEFFERY DE SOUZA MD Ot Z95.5 PRESENCE OF CORONARY ANGIOPLASTY IMPLANT 08/12/2016 JEFFERY DE SOUZA MD Ot I25.10 ATHSCL HEART DISEASE OF [place] CORONARY 08/12/2016 JEFFERY DE SOUZA MD Ot I50.9 HEART FAILURE, UNSPECIFIED 08/12/2016 JEFFERY DE SOUZA MD Ot R07.9 CHEST PAIN, UNSPECIFIED 08/22/2016 JEFFERY DE SOUZA MD Ot I25.10 ATHSCL HEART DISEASE OF [place] CORONARY 08/22/2016 JEFFERY DE SOUZA MD Ot I50.9 HEART FAILURE, UNSPECIFIED 08/22/2016 JEFFERY DE SOUZA MD Ot R07.9 CHEST PAIN, UNSPECIFIED 08/30/2016 JEFFERY DE SOUZA MD Ot I82.403 ACUTE EMBOLISM AND THOMBOS UNSP DEEP VEI 08/30/2016 JEFFERY DE SOUZA MD Ot Z79.01 INTERMEDIATE (CURRENT) USE OF ANTICOAGULANT 08/31/2016 JEFFERY DE SOUZA MD Ot I82.403 ACUTE EMBOLISM AND THOMBOS UNSP DEEP VEI 08/31/2016 JEFFERY DE SOUZA MD Ot Z79.01 PROPERTY ANALYST (CURRENT) USE OF ANTICOAGULANT 09/13/2016 JEFFERY DE SOUZA MD Ot I82.403 ACUTE EMBOLISM AND THOMBOS UNSP DEEP VEI 09/13/2016 JEFFERY DE SOUZA MD Ot Z79.01 INTERMEDIATE (CURRENT) USE OF ANTICOAGULANT 09/13/2016 JEFFERY DE SOUZA MD Ot I82.403 ACUTE EMBOLISM AND THOMBOS UNSP DEEP VEI 09/13/2016 JEFFERY DE SOUZA MD Ot Z79.01 PROPERTY ANALYST (CURRENT) USE OF ANTICOAGULANT 09/14/2016 JEFFERY DE SOUZA MD Ot I82.403 ACUTE EMBOLISM AND THOMBOS UNSP DEEP VEI 09/14/2016 JEFFERY DE SOUZA MD Ot Z79.01 PROPERTY ANALYST (CURRENT) USE OF ANTICOAGULANT 10/10/2016 JEFFERY DE SOUZA MD Ot I82.403 ACUTE EMBOLISM AND THOMBOS UNSP DEEP VEI 10/10/2016 JEFFERY DE SOUZA MD Ot Z79.01 INTERMEDIATE (CURRENT) USE OF ANTICOAGULANT 11/09/2016 JEFFERY DE SOUZA MD Ot I82.403 ACUTE EMBOLISM AND THOMBOS UNSP DEEP VEI 11/09/2016 JEFFERY DE SOUZA MD Ot Z79.01 INTERMEDIATE (CURRENT) USE OF ANTICOAGULANT 12/11/2016 JEFFERY DE SOUZA MD Ot I82.403 ACUTE EMBOLISM AND THOMBOS UNSP DEEP VEI 12/11/2016 JEFFERY DE SOUZA MD Ot Z79.01 INTERMEDIATE (CURRENT) USE OF ANTICOAGULANT 12/12/2016 JEFFERY DE SOUZA MD Ot I82.403 ACUTE EMBOLISM AND THOMBOS UNSP DEEP VEI 12/12/2016 JEFFERY DE SOUZA MD Ot Z79.01 INTERMEDIATE (CURRENT) USE OF ANTICOAGULANT 01/09/2017 Ot 414.00 CORON ATHEROSCLER NOS TYPE VESSEL, NATIV 01/09/2017 Ot 786.50 CHEST PAIN NOS 01/09/2017 Ot 397.0 TRICUSPID VALVE DISEASE 01/09/2017 Ot 414.00 CORON ATHEROSCLER NOS TYPE VESSEL, NATIV 01/09/2017 Ot 424.0 MITRAL VALVE DISORDER 01/09/2017 Ot 786.50 CHEST PAIN NOS 01/09/2017 Ot 272.4 HYPERLIPIDEMIA NEC/NOS 01/09/2017 Ot 401.9 HYPERTENSION NOS 01/09/2017 Ot 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[place] CORON 01/09/2017 Ot 401.9 HYPERTENSION NOS 01/09/2017 Ot 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[place] CORON 01/09/2017 Ot 428.0 CONGESTIVE HEART FAILURE NOS 01/09/2017 Ot 719.40 JOINT PAIN- UNSPEC 01/09/2017 Ot 782.3 EDEMA 01/09/2017 Ot V58.61 ANTICOAGULANTS,LT,CURRENT USE 01/09/2017 JEFFERY DE SOUZA MD Ot I11.0 HYPERTENSIVE HEART DISEASE WITH HEART FA 01/09/2017 JEFFERY DE SOUZA MD Ot I25.10 ATHSCL HEART DISEASE OF [place] CORONARY 01/09/2017 JEFFERY DE SOUZA MD Ot I26.99 OTHER PULMONARY EMBOLISM WITHOUT ACUTE C 01/09/2017 JEFFERY DE SOUZA MD Ot I50.9 HEART FAILURE, UNSPECIFIED 01/09/2017 JEFFERY DE SOUZA MD Ot I82.409 ACUTE EMBOLISM AND THOMBOS UNSP DEEP VN 01/09/2017 JEFFERY DE SOUZA MD Ot R07.9 CHEST PAIN, UNSPECIFIED 01/09/2017 JEFFERY DE SOUZA MD Ot I25.10 ATHSCL HEART DISEASE OF [place] CORONARY 01/09/2017 JEFFERY DE SOUZA MD Ot I50.9 HEART FAILURE, UNSPECIFIED 01/09/2017 JEFFERY DE SOUZA MD Ot R07.9 CHEST PAIN, UNSPECIFIED 01/09/2017 ROCHELLE OLIVER Ot F17.210 NICOTINE DEPENDENCE, CIGARETTES, UNCOMPL 01/09/2017 MARK HAZEL ROCHELLE L Ot R10.10 UPPER ABDOMINAL PAIN, UNSPECIFIED 01/09/2017 ROCHELLE OLIVER Ot R10.13 EPIGASTRIC PAIN 01/09/2017 ROCHELLE OLIVER Ot Z79.01 PROPERTY ANALYST (CURRENT) USE OF ANTICOAGULANT 01/09/2017 ROCHELLE OLIVER Ot Z79.82 INTERMEDIATE (CURRENT) USE OF ASPIRIN 01/09/2017 ROCHELLE OLIVER Ot Z79.899 OTHER PROPERTY ANALYST (CURRENT) DRUG THERAPY 01/09/2017 ROCHELLE OLIVER Ot Z95.5 PRESENCE OF CORONARY ANGIOPLASTY IMPLANT 01/11/2017 ROCHELLE OLIVER Ot F17.210 NICOTINE DEPENDENCE, CIGARETTES, UNCOMPL 01/11/2017 ROCHELLE OLIVER Ot R10.10 UPPER ABDOMINAL PAIN, UNSPECIFIED 01/11/2017 ROCHELLE OLIVER Ot R10.13 EPIGASTRIC PAIN 01/11/2017 RCOHELLE OLIVER Ot Z79.01 INTERMEDIATE (CURRENT) USE OF ANTICOAGULANT 01/11/2017 ROCHELLE OLIVER Ot Z79.82 INTERMEDIATE (CURRENT) USE OF ASPIRIN 01/11/2017 ROCHELLE OLIVER Ot Z79.899 OTHER PROPERTY ANALYST (CURRENT) DRUG THERAPY 01/11/2017 ROCHELLE OLIVER Ot Z95.5 PRESENCE OF CORONARY ANGIOPLASTY IMPLANT 01/29/2017 NOLVIA ENRIQUE, JEFFERY Gutierrez Ot I82.403 ACUTE EMBOLISM AND THOMBOS UNSP DEEP VEI 01/29/2017 JEFFERY DE SOUZA MD Ot Z79.01 PROPERTY ANALYST (CURRENT) USE OF ANTICOAGULANT 01/31/2017 Ot 414.00 CORON ATHEROSCLER NOS TYPE VESSEL, NATIV 01/31/2017 Ot 786.50 CHEST PAIN NOS 01/31/2017 Ot 397.0 TRICUSPID VALVE DISEASE 01/31/2017 Ot 414.00 CORON ATHEROSCLER NOS TYPE VESSEL, NATIV 01/31/2017 Ot 424.0 MITRAL VALVE DISORDER 01/31/2017 Ot 786.50 CHEST PAIN NOS 01/31/2017 Ot 272.4 HYPERLIPIDEMIA NEC/NOS 01/31/2017 Ot 401.9 HYPERTENSION NOS 01/31/2017 Ot 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[place] CORON 01/31/2017 Ot 401.9 HYPERTENSION NOS 01/31/2017 Ot 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[place] CORON 01/31/2017 Ot 428.0 CONGESTIVE HEART FAILURE NOS 01/31/2017 Ot 719.40 JOINT PAIN- UNSPEC 01/31/2017 Ot 782.3 EDEMA 01/31/2017 Ot V58.61 ANTICOAGULANTS,LT,CURRENT USE 01/31/2017 JEFFERY DE SOUZA MD Ot I11.0 HYPERTENSIVE HEART DISEASE WITH HEART FA 01/31/2017 JEFFERY DE SOUZA MD Ot I25.10 ATHSCL HEART DISEASE OF [place] CORONARY 01/31/2017 JEFFERY DE SOUZA MD Ot I26.99 OTHER PULMONARY EMBOLISM WITHOUT ACUTE C 01/31/2017 JEFFERY DE SOUZA MD Ot I50.9 HEART FAILURE, UNSPECIFIED 01/31/2017 JEFFERY DE SOUZA MD Ot R07.9 CHEST PAIN, UNSPECIFIED 01/31/2017 JEFFERY DE SOUZA MD Ot I25.10 ATHSCL HEART DISEASE OF [place] CORONARY 01/31/2017 JEFFERY DE SOUZA MD Ot I50.9 HEART FAILURE, UNSPECIFIED 01/31/2017 JEFFERY DE SOUZA MD Ot R07.9 CHEST PAIN, UNSPECIFIED 03/08/2017 JEFFERY DE SOUZA MD Ot I82.403 ACUTE EMBOLISM AND THOMBOS UNSP DEEP VEI 03/08/2017 JEFFERY DE SOUZA MD Ot Z79.01 INTERMEDIATE (CURRENT) USE OF ANTICOAGULANT 04/02/2017 JEFFERY DE SOUZA MD Ot I82.403 ACUTE EMBOLISM AND THOMBOS UNSP DEEP VEI 04/02/2017 JEFFERY DE SOUZA MD Ot Z79.01 PROPERTY ANALYST (CURRENT) USE OF ANTICOAGULANT 04/03/2017 JEFFERY DE SOUZA MD Ot I82.403 ACUTE EMBOLISM AND THOMBOS UNSP DEEP VEI 04/03/2017 JEFFERY DE SOUZA MD Ot Z79.01 PROPERTY ANALYST (CURRENT) USE OF ANTICOAGULANT 04/10/2017 JEFFERY DE [...] RIGHT ARM 04/13/2017 ROCHELLE OLIVER Ot Z79.01 PROPERTY ANALYST (CURRENT) USE OF ANTICOAGULANT 04/13/2017 ROCHELLE OLIVER Ot Z79.82 PROPERTY ANALYST (CURRENT) USE OF ASPIRIN 04/13/2017 ROCHELLE OLIVER [...] JEFFERY DE SOUZA MD Ot Z79.899 OTHER PROPERTY ANALYST (CURRENT) DRUG THERAPY 05/25/2017 JEFFERY DE SOUZA MD Ot I26.99 OTHER PULMONARY EMBOLISM WITHOUT ACUTE C 05/25/2017 JEFFERY DE SOUZA MD Ot Z51.81 ENCOUNTER FOR THERAPEUTIC DRUG LEVEL Sat05/25/2017 JEFFERY DE SOUZA MD Ot Z79.899 OTHER PROPERTY ANALYST (CURRENT) DRUG THERAPY 05/31/2017 JEFFERY DE SOUZA MD Ot I26.99 OTHER PULMONARY EMBOLISM WITHOUT ACUTE C 05/31/2017 JEFFERY DE SOUZA MD Ot Z51.81 ENCOUNTER FOR THERAPEUTIC DRUG LEVEL Sat05/31/2017 JEFFERY DE SOUZA MD Ot Z79.899 OTHER PROPERTY ANALYST (CURRENT) DRUG THERAPY 07/11/2017 SONIYA JAMES DO Ot D68.59 OTHER PRIMARY THROMBOPHILIA 07/11/2017 JAMES DO, SONIYA Ot E78.1 PURE HYPERGLYCERIDEMIA 07/11/2017 MAGALYS JAMES DOI Ot E78.5 HYPERLIPIDEMIA, UNSPECIFIED 07/11/2017 MAGALYS JAMES DOI Ot F17.210 NICOTINE DEPENDENCE, CIGARETTES, UNCOMPL 07/11/2017 ERIKA EBCK SONIYA Ot I10 ESSENTIAL (PRIMARY) HYPERTENSION 07/11/2017 ERIKA BECK SONIYA Ot I21.4 NON-ST ELEVATION (NSTEMI) MYOCARDIAL INF 07/11/2017 MAGALYS JAMES DOI Ot I25.10 ATHSCL HEART DISEASE OF [place] CORONARY 07/11/2017 ERIKA BECK SONIYA Ot 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 07/11/2017 MAGALYS JAMES DOI Ot I50.20 UNSPECIFIED SYSTOLIC (CONGESTIVE) HEART 07/11/2017 ERIKA BECK SONIYA Ot K21.9 GASTRO-ESOPHAGEAL REFLUX DISEASE WITHOUT 07/11/2017 MAGALYS JAMES DOI Ot R06.2 WHEEZING 07/11/2017 MAGALYS JAMES DOI Ot Z79.01 PROPERTY ANALYST (CURRENT) USE OF ANTICOAGULANT 07/11/2017 MAGALYS JAMES [...] DOI Ot I25.10 ATHSCL HEART DISEASE OF [place] CORONARY 07/15/2017 ERIKA BECK SONIYA Ot 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 07/15/2017 ERIKA BECK SONIYA Ot I50.20 UNSPECIFIED SYSTOLIC (CONGESTIVE) HEART 07/15/2017 MAGALYS JAMES DOI Ot K21.9 GASTRO-ESOPHAGEAL REFLUX DISEASE WITHOUT 07/15/2017 SONIYA JAMES DO Ot R06.2 WHEEZING 07/15/2017 SONIYA JAMES DO Ot Z79.01 INTERMEDIATE (CURRENT) USE OF ANTICOAGULANT 07/15/2017 SONIYA JAMES [...] DO Ot I25.10 ATHSCL HEART DISEASE OF [place] CORONARY 07/17/2017 SONIYA JAMES DO Ot 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 07/17/2017 SONIYA JAMES DO Ot I50.20 UNSPECIFIED SYSTOLIC (CONGESTIVE) HEART 07/17/2017 SONIYA JAMES DO Ot K21.9 GASTRO-ESOPHAGEAL REFLUX DISEASE WITHOUT 07/17/2017 SONIYA JAMES DO Ot R06.2 WHEEZING 07/17/2017 SONIYA JAMES DO Ot Z79.01 PROPERTY ANALYST (CURRENT) USE OF ANTICOAGULANT 07/17/2017 SONIYA JAMES [...] NOS 08/02/2017 Ot 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[place] CORON 08/02/2017 Ot 401.9 HYPERTENSION NOS 08/02/2017 Ot 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[place] CORON 08/02/2017 Ot 428.0 CONGESTIVE HEART FAILURE NOS 08/02/2017 Ot 719.40 JOINT PAIN- UNSPEC 08/02/2017 Ot 782.3 EDEMA 08/02/2017 Ot V58.61 ANTICOAGULANTS,LT,CURRENT USE 08/02/2017 JEFFERY DE SOUZA MD Ot I11.0 HYPERTENSIVE HEART DISEASE WITH HEART FA 08/02/2017 JEFFERY DE SOUZA MD Ot I25.10 ATHSCL HEART DISEASE OF [place] CORONARY 08/02/2017 JEFFERY DE SOUZA MD Ot I26.99 OTHER PULMONARY EMBOLISM WITHOUT ACUTE C 08/02/2017 EJFFERY DE SOUZA MD Ot I50.9 HEART FAILURE, UNSPECIFIED 08/02/2017 JEFFERY DE SOUZA MD Ot R07.9 CHEST PAIN, UNSPECIFIED 08/02/2017 JEFFERY DE SOUZA MD Ot I25.10 ATHSCL HEART DISEASE OF [place] CORONARY 08/02/2017 JEFFERY DE SOUZA MD Ot I50.9 HEART FAILURE, UNSPECIFIED 08/02/2017 JEFFERY DE SOUZA MD Ot R07.9 CHEST PAIN, UNSPECIFIED 08/02/2017 JEFFERY DE SOUZA MD Ot I82.403 ACUTE EMBOLISM AND THOMBOS UNSP DEEP VEI 08/02/2017 JEFFERY DE SOUZA MD Ot Z79.01 PROPERTY ANALYST (CURRENT) USE OF ANTICOAGULANT 08/02/2017 JEFFERY DE [...] JEFFERY DE SOUZA MD Ot Z79.899 OTHER INTERMEDIATE (CURRENT) DRUG THERAPY 08/02/2017 ROCHELLE OLIVER Ot [...] FACTORS, INI 08/02/2017 ROCHELLE OLIVER Ot Z79.01 PROPERTY ANALYST (CURRENT) USE OF ANTICOAGULANT 08/02/2017 ROCHELLE OLIVER Ot Z79.82 PROPERTY ANALYST (CURRENT) USE OF ASPIRIN 08/02/2017 ROCHELLE OLIVER Ot Z82.49 FAMILY HX OF ISCHEM HEART DIS AND OTH DI 08/02/2017 ROCHELLE OLIVER Ot Z95.5 PRESENCE OF CORONARY ANGIOPLASTY IMPLANT 08/06/2017 JEFFERY DE SOUZA MD Ot I26.99 OTHER PULMONARY EMBOLISM WITHOUT ACUTE C 08/06/2017 JEFFERY DE SOUZA MD Ot Z79.01 PROPERTY ANALYST (CURRENT) USE OF ANTICOAGULANT 08/06/2017 JEFFERY DE [...] NOS 08/09/2017 Ot 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[place] CORON 08/09/2017 Ot 401.9 HYPERTENSION NOS 08/09/2017 Ot 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[place] CORON 08/09/2017 Ot 428.0 CONGESTIVE HEART FAILURE NOS 08/09/2017 Ot 719.40 JOINT PAIN- UNSPEC 08/09/2017 Ot 782.3 EDEMA 08/09/2017 Ot V58.61 ANTICOAGULANTS,LT,CURRENT USE 08/09/2017 JEFFERY DE SOUZA MD Ot I11.0 HYPERTENSIVE HEART DISEASE WITH HEART FA 08/09/2017 JEFFERY DE SOUZA MD Ot I25.10 ATHSCL HEART DISEASE OF [place] CORONARY 08/09/2017 JEFFERY DE SOUZA MD Ot I26.99 OTHER PULMONARY EMBOLISM WITHOUT ACUTE C 08/09/2017 JEFFERY DE SOUZA MD Ot I50.9 HEART FAILURE, UNSPECIFIED 08/09/2017 JEFFERY DE SOUZA MD Ot R07.9 CHEST PAIN, UNSPECIFIED 08/09/2017 JEFFERY DE SOUZA MD Ot I25.10 ATHSCL HEART DISEASE OF [place] CORONARY 08/09/2017 JEFFERY DE SOUZA MD Ot I50.9 HEART FAILURE, UNSPECIFIED 08/09/2017 JEFFERY DE SOUZA MD Ot R07.9 CHEST PAIN, UNSPECIFIED 08/09/2017 JEFFERY DE SOUZA MD Ot I82.403 ACUTE EMBOLISM AND THOMBOS UNSP DEEP VEI 08/09/2017 JEFFERY DE SOUZA MD Ot Z79.01 PROPERTY ANALYST (CURRENT) USE OF ANTICOAGULANT 08/09/2017 JEFFERY DE SOUZA MD Ot I26.99 OTHER PULMONARY EMBOLISM WITHOUT ACUTE C 08/09/2017 JEFFERY DE SOUZA MD Ot Z51.81 ENCOUNTER FOR THERAPEUTIC DRUG LEVEL MON 08/09/2017 JEFFERY DE SOUZA MD Ot I26.99 OTHER PULMONARY EMBOLISM WITHOUT ACUTE C 08/09/2017 JEFFERY DE SOUZA MD Ot Z79.01 PROPERTY ANALYST (CURRENT) USE OF ANTICOAGULANT 08/09/2017 JEFFERY DE SOUZA MD Ot I50.9 HEART FAILURE, UNSPECIFIED 08/14/2017 JEFFERY DE SOUZA MD Ot I26.99 OTHER PULMONARY EMBOLISM WITHOUT ACUTE C 08/14/2017 JEFFERY DE SOUZA MD Ot Z79.01 INTERMEDIATE (CURRENT) USE OF ANTICOAGULANT 08/22/2017 FREDRICK MCCAULEY MD Ot I25.119 ATHSCL HEART DISEASE OF [place] COR ART W 08/22/2017 FREDRICK MCCAULEY MD Ot Z01.812 ENCOUNTER FOR PREPROCEDURAL LABORATORY E 08/24/2017 JEFFERY DE SOUZA MD Ot I26.99 OTHER PULMONARY EMBOLISM WITHOUT ACUTE C 08/24/2017 JEFFERY DE SOUZA MD Ot Z79.01 PROPERTY ANALYST (CURRENT) USE OF ANTICOAGULANT 08/30/2017 JEFFEYR DE SOUZA MD Ot I26.99 OTHER PULMONARY EMBOLISM WITHOUT ACUTE C 08/30/2017 JEFFERY DE SOUZA MD Ot Z79.01 PROPERTY ANALYST (CURRENT) USE OF ANTICOAGULANT 09/02/2017 JEFFERY DE SOUZA MD Ot I26.99 OTHER PULMONARY EMBOLISM WITHOUT ACUTE C 09/02/2017 JEFFERY DE SOUZA MD Ot Z79.01 INTERMEDIATE (CURRENT) USE OF ANTICOAGULANT 09/06/2017 JEFFERY DE SOUZA MD Ot I10 ESSENTIAL (PRIMARY) HYPERTENSION 09/06/2017 JEFFERY DE SOUZA MD Ot I25.10 ATHSCL HEART DISEASE OF [place] CORONARY 09/06/2017 JEFFERY DE SOUZA MD Ot [...] FOOT 09/17/2017 VIANEY SWEET APRN Ot Z79.01 INTERMEDIATE (CURRENT) USE OF ANTICOAGULANT 09/17/2017 VIANEY SWEET APRN Ot Z79.02 INTERMEDIATE (CURRENT) USE OF ANTITHROMBOTI 09/17/2017 VIANEY SWEET APRN Ot Z79.82 PROPERTY ANALYST (CURRENT) USE OF ASPIRIN 09/17/2017 VIANEY SWEET APRN Ot Z82.49 FAMILY HX OF [place] HEART DIS AND OTH DI 09/17/2017 VIANEY SWEET APRN Ot Z86.718 PERSONAL HISTORY OF OTHER VENOUS THROMBO 09/17/2017 VIANEY SWEET APRN Ot Z95.5 PRESENCE OF CORONARY ANGIOPLASTY IMPLANT 09/18/2017 JEFFERY DE SOUZA MD, Ot I10 ESSENTIAL (PRIMARY) HYPERTENSION 09/18/2017 JEFFERY DE SOUZA MD, Ot I25.10 ATHSCL HEART DISEASE OF [place] CORONARY 09/18/2017 JEFFERY DE SOUZA MD, Ot R06.00 DYSPNEA, UNSPECIFIED 09/18/2017 JEFFERY DE SOUZA MD, Ot R07.89 OTHER CHEST PAIN Procedures Code Description Performed By Performed On CARDIOLOG JEFFERY DE SOUZA 01/30/2014 [id number] DILATION OF 1 COR ART WITH DRUG-ELUT INT 07/12/2017 [id number] MEASURE OF CARDIAC SAMPL PRESSURE, L H 07/12/2017 [id number] FLUOROSCOPY OF MULT COR ART USING L OSM 07/12/2017 [id number] FLUOROSCOPY OF LEFT HEART USING LOW OSMO [...] rate by westergren method 13 mm 0-15 Complete blood count (CBC) with automated white blood cell (WBC) differential - 09/22/17 23:50 Blood leukocytes automated count (number/volume) 12.6 10*3/uL 4.3-11.0 Blood erythrocytes automated count (number/volume) 3.67 10*6/uL 4.35-5.85 Venous blood hemoglobin measurement (mass/volume) 10.6 g/dL 13.3-17.7 Blood hematocrit (volume fraction) 32 % 40-54 Automated erythrocyte mean corpuscular volume 87 [foz_us] 80-99 Automated erythrocyte mean corpuscular hemoglobin (mass per erythrocyte) 29 pg 25-34 Automated erythrocyte mean corpuscular hemoglobin concentration measurement ( mass/volume) 33 g/dL 32-36 Automated erythrocyte distribution width ratio 13.8 % 10.0-14.5 Automated blood platelet count (count/volume) 514 10*3/uL 130-400 Automated blood platelet mean volume measurement 9.1 [foz_us] 7.4-10.4 Automated blood neutrophils/100 leukocytes 79 % 42-75 Automated blood lymphocytes/100 leukocytes 10 % 12-44 Blood monocytes/100 leukocytes 10 % 0-12 Automated blood eosinophils/100 leukocytes 2 % 0-10 Automated blood basophils/100 leukocytes 0 % 0-10 Blood neutrophils automated count (number/volume) 9.9 10*3 1.8-7.8 Blood lymphocytes automated count (number/volume) 1.2 10*3 1.0-4.0 Blood monocytes automated count (number/volume) 1.2 10*3 0.0-1.0 Automated eosinophil count 0.2 10*3/uL 0.0-0.3 Automated blood basophil count (count/volume) 0.0 10*3/uL 0.0-0.1 Blood lactic acid measurement (moles/volume) - 09/22/17 23:50 Blood lactic acid measurement (moles/volume) 0.81 mmol/L 0.50-2.00 PT panel in platelet poor plasma by coagulation assay - 09/22/17 23:50 Prothrombin time (PT) in platelet poor plasma by coagulation assay 34.2 s 12.2-14.7 INR in platelet poor plasma or blood by coagulation assay 3.4 0.8-1.4 Activated partial thromboplastin time (aPTT) in platelet poor plasma bycoagulation assay - 09/22/17 23:50 Activated partial thromboplastin time (aPTT) in platelet poor plasma bycoagulation assay 124 s 24-35 Comprehensive metabolic panel - 09/22/17 23:50 Serum or plasma sodium measurement (moles/volume) 137 mmol/L 135-145 Serum or plasma potassium measurement (moles/volume) 3.8 mmol/L 3.6-5.0 Serum or plasma chloride measurement (moles/volume) 95 mmol/L 98-107 Carbon dioxide 29 mmol/L 21-32 Serum or plasma anion gap determination (moles/volume) 13 mmol/L 5-14 Serum or plasma urea nitrogen measurement (mass/volume) 9 mg/dL 7-18 Serum or plasma creatinine measurement (mass/volume) 0.76 mg/dL 0.60-1.30 Serum or plasma urea nitrogen/creatinine mass ratio 12 NRG Serum or plasma creatinine measurement with calculation of estimated glomerular filtration rate > NRG Serum or plasma glucose measurement (mass/volume) 115 mg/dL 70-105 Serum or plasma calcium measurement (mass/volume) 9.6 mg/dL 8.5-10.1 Serum or plasma total bilirubin measurement (mass/volume) 0.4 mg/dL 0.1-1.0 Serum or plasma alkaline phosphatase measurement (enzymatic activity/volume) 80 U/L 40-136 Serum or plasma aspartate aminotransferase measurement (enzymatic activity/ volume) 21 U/L 5-34 Serum or plasma alanine aminotransferase measurement (enzymatic activity/volume ) 19 U/L 0-55 Serum or plasma protein measurement (mass/volume) 7.8 g/dL 6.4-8.2 Serum or plasma albumin measurement (mass/volume) 3.5 g/dL 3.2-4.5 Serum or plasma C reactive protein measurement (mass/volume) - 09/22/17 23:50 Serum or plasma C reactive protein measurement (mass/volume) 34.60 mg/dL 0.00-0.50 Erythrocyte sedimentation rate by westergren method - 09/22/17 23:50 Erythrocyte sedimentation rate by westergren method > mm 0-15 Encounters ACCT No. Visit Date/Time Discharge Status Pt. Type Provider Facility Loc./Unit Complaint [id number] 11/19/2014 09:47:00 11/19/2014 23:59:59 CLS Outpatient TRE SULTANA APRN [id number] 01/30/2014 12:54:00 01/30/2014 23:59:59 CLS Outpatient UTE PUTNAM APRN [id number] 11/25/2012 09:24:00 11/25/2012 23:59:59 CLS Outpatient CALVIN SCHERER DO [id number] 09/17/2017 09:08:00 09/17/2017 23:59:59 CLS Outpatient JEFFERY DE SOUZA MD [facility] RAD LEFT LEG PAIN [id number] 09/15/2017 11:43:00 09/15/2017 15:31:00 DIS Outpatient VIANEY SWEET APRN [facility] ER L LEG PAIN/SWELLING/HX BLOOD CLOTS [id number] 09/05/2017 10:30:00 09/05/2017 23:59:59 CLS Outpatient JEFFERY DE SOUZA MD [facility] CARD CAD, CHEST PAIN SYNDROME [id number] 09/04/2017 11:37:00 09/04/2017 23:59:59 CLS Outpatient JEFFERY DE SOUZA MD [facility] CR CHF [id number] 08/30/2017 11:00:00 08/30/2017 23:59:59 CLS Outpatient JEFFERY DE SOUZA MD [facility] LAB I26.99 [id number] 05/26/2017 07:00:00 08/24/2017 00:01:00 DIS Outpatient JEFFERY DE SOUZA MD [facility] LAB I26.99 [id number] 08/09/2017 09:16:00 08/09/2017 23:59:59 CLS Outpatient FREDRICK MCCAULEY MD [facility] LAB Z01.812 I25.119 [id number] 08/02/2017 11:24:00 08/02/2017 11:53:00 DIS Emergency ROCHELLE OLIVER [facility] ER LUMP ON CHEST [id number] 07/11/2017 17:12:00 07/15/2017 14:45:00 DIS Inpatient SONIYA JAMES DO [facility] ICU CHEST PAIN,N/V [id number] 05/09/2017 10:49:00 05/25/2017 00:01:00 DIS Outpatient JEFFERY DE SOUZA MD [facility] LAB I26.99 [id number] 04/13/2017 15:07:00 04/13/2017 17:28:00 DIS Emergency ROCHELLE OLIVER [facility] ER SWELLING IN R ARM AFTER FLU SHOT [id number] 04/09/2017 10:55:00 04/09/2017 23:59:59 CLS Outpatient JEFFERY DE SOUZA MD [facility] LAB I26.99,Z51.81 [id number] 04/03/2017 00:08:00 04/03/2017 23:59:59 CLS Preadmit JEFFERY DE SOUZA MD [facility] LAB DVT [id number] 02/20/2017 11:24:00 04/02/2017 00:01:00 DIS Outpatient JEFFERY DE SOUZA MD [facility] LAB DVT [id number] 01/09/2017 17:21:00 01/09/2017 19:18:00 DIS Emergency ROCHELLE OLIVER [facility] ER LOWER CHEST PAIN [id number] 11/28/2016 08:17:00 12/11/2016 00:01:00 DIS Outpatient JEFFERY DE SOUZA MD [facility] LAB DVT [id number] 07/02/2016 13:09:00 08/30/2016 00:01:00 DIS Outpatient JEFFERY DE SOUZA MD [facility] LAB DVT [id number] 08/08/2016 10:25:00 08/08/2016 19:55:00 DIS Outpatient JEFFERY DE SOUZA MD [facility] CATH ABN STRESS,CP,CAD [id number] 08/06/2016 07:31:00 08/06/2016 23:59:59 CLS Outpatient JEFFERY DE SOUZA MD [facility] CARD CAD, CHF, CHEST PAIN SYNDROME, DVT, HTN, PE [id number] 07/26/2016 11:12:00 07/26/2016 23:59:59 CLS Outpatient JEFFERY DE SOUZA MD [facility] CARD CAD, CHF, CHEST PAIN SYNDROME, DVT, HTN, PE [id number] 02/22/2016 13:12:00 05/22/2016 00:01:00 DIS Outpatient JEFFERY DE SOUZA MD [facility] LAB DVT [id number] 01/22/2016 14:55:00 01/22/2016 17:15:00 DIS Emergency VIANEY SWEET APRN [facility] ER R ARM PAIN [id number] 04/01/2015 09:29:00 05/25/2015 00:01:00 DIS Outpatient JEFFERY DE SOUZA MD [facility] LAB ANTICOAG THERAPY,HX PE [id number] 04/01/2015 08:34:00 04/01/2015 10:54:00 DIS Emergency ALANNA ENRIQUE, JOHN Levi [facility] ER RIGHT FOOT PAIN/COUGH [id number] 10/27/2014 11:05:00 01/25/2015 00:01:00 DIS Outpatient JEFFERY DE SOUZA MD [facility] LAB ANTICOAG THERAPY,HX PE [id number] 06/01/2014 14:51:00 2014 00:01:00 DIS Outpatient JEFFERY DE SOUZA MD [facility] LAB ANTICOAG THERAPY,HX PE [id number] 12/07/2013 18:10:00 12/20/2013 00:01:00 DIS Outpatient JEFFERY DE SOUZA MD [facility] LAB ANTICOAG THERAPY,HX PE [id number] 05/03/2013 15:59:00 07/08/2013 00:01:00 DIS Outpatient JEFFERY DE SOUZA MD [facility] LAB ANTICOAG THERAPY,HX PE [id number] 01/09/2013 18:23:00 01/09/2013 19:22:00 DIS Emergency YVETTE ENRIQUE, MENDOZA Gruber [facility] ER LEFT ANKLE PAIN [id number] 09/23/2017 00:09:00 Document Registration [id number] 07/06/2015 09:36:00 Document Registration [id number] 07/06/2015 09:36:00 Document Registration [id number] 07/06/2015 09:36:00 Document Registration [id number] 07/06/2015 09:36:00 Document Registration [id number] 07/06/2015 09:36:00 Document Registration [id number] 07/06/2015 09:36:00 Document Registration [id number] 07/06/2015 09:36:00 Document Registration [id number] 07/06/2015 09:36:00 Document Registration [id number] 07/06/2015 09:36:00 Document Registration [id number] 07/06/2015 09:36:00 Document Registration [id number] 07/06/2015 09:36:00 Document Registration [id number] 07/06/2015 09:36:00 Document Registration [id number] 11/25/2014 10:38:00 Document Registration [id number] 11/25/2014 10:38:00 Document Registration [id number] 11/25/2014 10:37:00 Document Registration [id number] 11/25/2014 10:37:00 Document Registration [id number] 10/31/2014 21:35:00 Document Registration [id number] 12/02/2012 16:55:00 Document Registration [id number] 11/11/2012 08:29:00 Document Registration [id number] 10/14/2012 10:36:00 Document Registration [id number] 09/24/2012 07:36:00 Document Registration [id number] 09/17/2012 10:00:00 Document Registration [id number] 09/16/2012 13:04:00 Document Registration [id number] 07/27/2012 16:16:00 Document Registration [id number] 04/30/2012 21:41:00 Document Registration [id number] 04/02/2012 12:15:00 Document Registration [id number] 11/18/2011 13:43:00 Document Registration [id number] 06/04/2011 10:15:00 Document Registration [id number] 05/23/2011 06:51:00 Document Registration [id number] 05/19/2011 08:46:00 Document Registration [id number] 01/16/2011 10:21:00 Document Registration [id number] 11/26/2010 14:37:00 Document Registration [id number] 05/17/2010 09:40:00 Document Registration [id number] 01/18/2010 17:02:00 Document Registration [id number] 12/29/2009 09:19:00 Document Registration [id number] 08/04/2009 08:28:00 Document Registration [id number] 04/28/2009 13:16:00 Document Registration [id number] 06/09/2008 08:46:00 Document Registration [id number] 05/10/2008 12:11:00 Document Registration [id number] 03/25/2008 14:03:00 Document Registration [id number] 01/03/2008 08:26:00 Document Registration [id number] 11/20/2007 09:23:00 Document Registration [id number] 10/23/2007 11:12:00 Document Registration [id number] 10/02/2007 12:14:00 Document Registration [id number] 03/27/2007 10:33:00 Document Registration [id number] 01/07/2007 14:25:00 Document Registration [id number] 11/04/2006 08:46:00 Document Registration [id number] 10/08/2006 14:49:00 Document Registration [id number] 09/02/2006 07:21:00 Document Registration [id number] 08/16/2006 08:00:00 Document Registration [id number] 07/08/2006 08:52:00 Document Registration [id number] 06/19/2006 16:48:00 Document Registration [id number] 03/27/2006 11:44:00 Document Registration [id number] 03/04/2006 09:32:00 Document Registration [id number] 02/15/2006 08:15:00 Document Registration [id number] 12/05/2005 11:33:00 Document Registration [id number] 10/03/2005 11:41:00 Document Registration
[2017-09-23] MEDS: morphine INJ 4 MG/ML 1 ML (VIAL/SYRINGE) IV PRN ×4 (06:05→20:18)
[2017-09-23 06:44] LABS: INR 3.8 (0.8-1.4); PROTHROMBIN TIME PATIENT 37.3 SEC (12.2-14.7)
[2017-09-23 06:47] LABS: BASOPHILS % (AUTO) 0 % (0-10); EOSINOPHILS # (AUTO) 0.3 10^3/uL (0.0-0.3); EOSINOPHILS % (AUTO) 3 % (0-10); HEMATOCRIT 29 % (40-54); HEMOGLOBIN 9.7 G/DL (13.3-17.7); LYMPHOCYTES # (AUTO) 1.2 X 10^3 (1.0-4.0); LYMPHOCYTES % (AUTO) 10 % (12-44); MEAN CORPUSCULAR HEMOGLOBIN 29 PG (25-34); MEAN CORPUSCULAR HGB CONC 33 G/DL (32-36); MEAN CORPUSCULAR VOLUME 88 FL (80-99); MEAN PLATELET VOLUME 9.6 FL (7.4-10.4); MONOCYTES # (AUTO) 1.4 X 10^3 (0.0-1.0); MONOCYTES % (AUTO) 12 % (0-12); NEUTROPHILS # (AUTO) 8.5 X 10^3 (1.8-7.8); NEUTROPHILS % (AUTO) 75 % (42-75); PLATELET COUNT 487 10^3/uL (130-400); RED BLOOD COUNT 3.34 10^6/uL (4.35-5.85); RED CELL DISTRIBUTION WIDTH 13.7 % (10.0-14.5); WHITE BLOOD COUNT 11.4 10^3/uL (4.3-11.0)
[2017-09-23 06:52] LABS: ALANINE AMINOTRANSFERASE 17 U/L (0-55); ALBUMIN 3.2 GM/DL (3.2-4.5); ALKALINE PHOSPHATASE 78 U/L (40-136); BILIRUBIN,TOTAL 0.4 MG/DL (0.1-1.0); BUN/CREATININE RATIO 12; CALCIUM 9.3 MG/DL (8.5-10.1); CARBON DIOXIDE 29 MMOL/L (21-32); CHLORIDE 98 MMOL/L (98-107); CREATININE SERUM 0.68 MG/DL (0.60-1.30); GFR ESTIMATED > 60; GLUCOSE 92 MG/DL (70-105); POTASSIUM 3.4 MMOL/L (3.6-5.0); SODIUM 141 MMOL/L (135-145)
[2017-09-23] MEDS: VANCOMYCIN INJECTION 1,250 MG in NS (IVPB) 250 ML IV SCH ×3 (08:30→23:28)
[2017-09-23] MEDS: CATHETER FLUSH 10 ML SYR IV PRN ×2 (08:31→16:14)
[2017-09-23] MEDS ORDERED: ALLO300T2 PO (09:13)
[2017-09-23] MEDS ORDERED: MULT-851 PO (09:23)
[2017-09-23] MEDS ORDERED: SACU1TAB PO (09:23)
[2017-09-23] MEDS ORDERED: CLOP75TA69 PO (09:23)
[2017-09-23] MEDS ORDERED: OMEP20TA33 PO (09:23)
[2017-09-23] MEDS ORDERED: NITR0.4T42 SL (09:23)
--- NOTE | 2017-09-23 09:58 | History & Physical-Hospitalist ---
HPI History of Present Illness: HPI/Chief Complaint CC: Left leg cellulitis HPI: This is a 47-year-old white male known to me from prior admission for coronary artery disease with recent stent placement one month ago by Dr. Duran who presents with left leg swelling and pain and diagnosed with cellulitis in the ER. Patient was placed on vancomycin empirically we'll add Rocephin due to the elevated white count and continued erythema although improved but will broaden antibiotic spectrum. He reports he has pain and he is constantly asking for pain medication. His primary care provider is Dr. Flowers. Source: patient Exam Limitations: no limitations Date Seen 09/23/17 Time Seen by Provider: 09:45 Attending Physician Seth Cerna MD PCP John Flowers MD Referring Physician Date of Admission Sep 23, 2017 at 00:55 Home Medications & Allergies Home Medications Reviewed patient Home Medication Reconciliation Form Allergies Allergies Coded Allergies Penicillins (Unverified Allergy, Mild, 01/27/09) Past Nxzycpu-Erjkrz-Pjfisx Hx Patient Social History Marrital Status: Employed/Student: unemployed Alcohol Use: Denies Use (USED " A KID") Recreational Drug Use: No (THC " A KID" ) Smoking Status: Former Smoker (4 PPD--QUIT 2016) Former Smoker, Quit: Jun 26, 2017 Type Used: Cigarettes 2nd Hand Smoke Exposure: No Physical Abuse Screen: No Sexual Abuse: No Recent Foreign Travel: No Contact w/other who traveled: No Recent Hopitalizations: No Recent Infectious Disease Expo: No Immunizations Up To Date Date of Pneumonia Vaccine: Jul 28, 2012 Date of Influenza Vaccine: Jun 08, 2017 Seasonal Allergies Seasonal Allergies: No Surgeries Yes (CARDIAC CATHS--STENTS X 1. LAST CATH 07/11/17 WITH STENT X 1) Cardiac, Coronary Stent Respiratory Yes Pulmonary Embolism Currently Using CPAP: No Currently Using BIPAP: No Cardiovascular Yes (UT X 2; STENTS X 4; -NSTEMI 07/11/17 WITH 1 STENT PLACED) Coronary Artery Disease, Deep Vein Thrombosis, Heart Attack, High Cholesterol, Hypertension Neurological No Reproductive System Hx Reproductive Disorders: No Genitourinary No Gastrointestinal Yes Gastroesophageal Reflux Musculoskeletal Yes (HYDROCODONE + IBUPROFEN DAILY) Chronic Back Pain, Gout Endocrine History of Endocrine Disorders: No HEENT History of HEENT Disorders: No Cancer No Psychosocial History of Psychiatric Problem: No Integumentary History of Skin or Integumenta: No Blood Transfusions History of Blood Disorders: Yes (PROTEIN S DEFICIENCY--DVT'S AND P.E.'S AND UT X 2) Family Medical History Significant Family History: Heart Disease, Vascular Disease Family Hx: Arthritis G8 BROTHER Blood clots 19 MOTHER ( of blood clot) Cardiac disorder 19 FATHER Diabetes mellitus G8 BROTHER FH: cancer paternal grandmother FHx: inflammatory bowel disease G8 BROTHER No Family History of: FH: sudden cardiac (SCD) Review of Systems Constitutional: see HPI, fever, weakness EENTM: no symptoms reported Respiratory: no symptoms reported Cardiovascular: no symptoms reported Gastrointestinal: no symptoms reported Genitourinary: no symptoms reported Musculoskeletal: no symptoms reported Skin: see HPI Psychiatric/Neurological: No Symptoms Reported All Other Systems Reviewed Negative Unless Noted: Yes Physical Exam Physical Exam Vital Signs Vital Sign - Last 12Hours 09/22/17 23:40 Temp 98.7 Pulse 97 Resp 20 B/P (MAP) 138/77 (97) Pulse Ox 97 O2 Delivery Room Air Capillary Refill : Less Than 3 Seconds General Appearance: No Apparent Distress, WD/WN, Chronically ill Eyes: Bilateral Eye Normal Inspection, Bilateral Eye PERRL HEENT: PERRL/EOMI, Normal ENT Inspection, Pharynx Normal Neck: Full Range of Motion, Normal Inspection, Non Tender, Supple, Carotid Bruit Respiratory: Chest Non Tender, Lungs Clear, Normal Breath Sounds, No Accessory Muscle Use, No Respiratory Distress Cardiovascular: Regular Rate, Rhythm, No Edema, No Gallop, No JVD, No Murmur, Normal Peripheral Pulses Gastrointestinal: Normal Bowel Sounds, No Organomegaly, No Pulsatile Mass, Non Tender, Soft Back: Normal Inspection, No CVA Tenderness, No Vertebral Tenderness Extremity: Normal Capillary Refill, Normal Inspection, Normal Range of Motion, Non Tender, No Calf Tenderness, No Pedal Edema Neurologic/Psychiatric: Alert, Oriented x3, No Motor/Sensory Deficits, Normal Mood/Affect Skin: Normal Color, Warm/Dry, Rash (left leg erythema with mild edema and tenderness to palpation and warm to touch) Lymphatic: No Adenopathy Results Results/Procedures Lab Laboratory Tests 09/22/17 23:50 09/23/17 05:26 Assessment/Plan Admission Diagnosis Assessment: Acute left leg cellulitis History of CAD recent stent placement Hyperlipidemia Hypertension Congestive heart failure maintain on Entresto Assessment and Plan Plan: Empiric antibiotics and add Rocephin to vancomycin Monitor labs Reconcile all home meds Monitor closely Pain control DVT prophylaxis Clinical Quality Measures DVT/VTE Risk/Contraindication: Risk Factor Score Per Nursin RFS Level Per Nursing on Admit: 4+=Very High SONIYA JAMES DO Sep 23, 2017 09:58
[2017-09-23] MEDS ORDERED: cefTRIAXone INJECTION 1,000 MG in NS (IVPB) 50 ML IV SCH (10:00)
[2017-09-23] MEDS ORDERED: NITROGLYCERIN 0.4 MG SL TABS BTL 25'S SL PRN (10:00)
[2017-09-23] MEDS ORDERED: warFARin 5 MG (COUMADIN) TAB PO SCH (10:00)
[2017-09-23] MEDS ORDERED: ONDANSETRON 4 MG/2 ML (SDV) Z0FRAN IVP PRN (10:30)
[2017-09-23] MEDS: PANTOPRAZOLE 20 MG TABLET (PROTONIX) PO SCH (10:31)
[2017-09-23] MEDS: HYDROcodone/APAP 7.5 MG/325 MG (LORTAB, LORCET PLUS) TABLET PO PRN ×2 (10:31→20:19)
[2017-09-23] MEDS: fentaNYL INJECTION 100 MCG/2 ML AMP IVP PRN ×2 (12:47→22:33)
[2017-09-23] MEDS: GABAPENTIN 600 MG (NEURONTIN) TAB PO SCH ×3 (12:47→20:18)
[2017-09-23] MEDS: CATHETER FLUSH 10 ML SYR IV SCH ×2 (12:47→21:01)
[2017-09-23] MEDS: OMEGA 3 (FISH OIL) 1000 MG CAP PO SCH ×2 (12:48→20:18)
[2017-09-23] MEDS: ACETAMINOPHEN 500 MG TAB (TYLENOL) PO PRN ×2 (15:46→23:28)
[2017-09-23] MEDS: CARISOPRODOL 350 MG (SOMA) TAB PO SCH (20:18)
[2017-09-23] MEDS ORDERED: SACUBITRIL/VALSARTAN 24/26 MG (ENTRESTO) TABLET PO SCH (21:00)
[2017-09-24] MEDS ORDERED: VANCOMYCIN 1500 MG/NS 500 ML IVPB IV SCH ×2 (01:00)
[2017-09-24 03:00] VITALS: BP 139/80
[2017-09-24] MEDS: morphine INJ 4 MG/ML 1 ML (VIAL/SYRINGE) IV PRN (03:24)
[2017-09-24] MEDS: fentaNYL INJECTION 100 MCG/2 ML AMP IVP PRN ×3 (05:43→16:57)
[2017-09-24] MEDS: CATHETER FLUSH 10 ML SYR IV SCH ×3 (05:43→22:24)
[2017-09-24] MEDS: PANTOPRAZOLE 20 MG TABLET (PROTONIX) PO SCH (05:48)
[2017-09-24] MEDS ORDERED: TROUGH ORDER-PHARMACY XX NR (07:00)
[2017-09-24 07:14] LABS: BASOPHILS % (AUTO) 0 % (0-10); EOSINOPHILS # (AUTO) 0.2 10^3/uL (0.0-0.3); EOSINOPHILS % (AUTO) 1 % (0-10); HEMATOCRIT 34 % (40-54); HEMOGLOBIN 11.3 G/DL (13.3-17.7); LYMPHOCYTES % (AUTO) 9 % (12-44); MEAN CORPUSCULAR HEMOGLOBIN 29 PG (25-34); MEAN CORPUSCULAR HGB CONC 33 G/DL (32-36); MEAN CORPUSCULAR VOLUME 87 FL (80-99); MEAN PLATELET VOLUME 8.9 FL (7.4-10.4); MONOCYTES # (AUTO) 0.5 X 10^3 (0.0-1.0); MONOCYTES % (AUTO) 5 % (0-12); NEUTROPHILS # (AUTO) 8.7 X 10^3 (1.8-7.8); NEUTROPHILS % (AUTO) 84 % (42-75); PLATELET COUNT 570 10^3/uL (130-400); RED BLOOD COUNT 3.93 10^6/uL (4.35-5.85); WHITE BLOOD COUNT 10.4 10^3/uL (4.3-11.0)
[2017-09-24 07:25] LABS: INR 3.2 (0.8-1.4); PROTHROMBIN TIME PATIENT 32.3 SEC (12.2-14.7)
[2017-09-24 07:33] LABS: ALANINE AMINOTRANSFERASE 21 U/L (0-55); ALBUMIN 3.5 GM/DL (3.2-4.5); ALKALINE PHOSPHATASE 90 U/L (40-136); BILIRUBIN,TOTAL 0.4 MG/DL (0.1-1.0); BUN/CREATININE RATIO 10; CALCIUM 9.8 MG/DL (8.5-10.1); CARBON DIOXIDE 29 MMOL/L (21-32); CHLORIDE 99 MMOL/L (98-107); CREATININE SERUM 0.71 MG/DL (0.60-1.30); GFR ESTIMATED > 60; GLUCOSE 139 MG/DL (70-105); POTASSIUM 3.6 MMOL/L (3.6-5.0); SODIUM 141 MMOL/L (135-145); TOTAL PROTEIN 7.6 GM/DL (6.4-8.2)
[2017-09-24 07:39] LABS: VANCOMYCIN,TROUGH 13.6 UG/ML (10.0-20.0)
[2017-09-24 08:00] VITALS: BP 129/72
[2017-09-24] MEDS: cefTRIAXone INJECTION 1,000 MG in NS (IVPB) 50 ML IV SCH (08:07)
[2017-09-24] MEDS: CLOPIDOGREL 75 MG (PLAVIX) TABLET PO SCH (08:09)
[2017-09-24] MEDS: ALLOPURINOL 300 MG (ZYLOPRIM) TAB PO SCH (08:09)
[2017-09-24] MEDS: ATORVASTATIN 40 MG (LIPITOR) TABLET PO SCH (08:09)
[2017-09-24] MEDS: SACUBITRIL/VALSARTAN 24/26 MG (ENTRESTO) TABLET PO SCH ×2 (08:09→22:24)
[2017-09-24] MEDS: GABAPENTIN 600 MG (NEURONTIN) TAB PO SCH ×4 (08:09→22:24)
[2017-09-24] MEDS: OMEGA 3 (FISH OIL) 1000 MG CAP PO SCH ×3 (08:09→22:24)
[2017-09-24] MEDS: VANCOMYCIN INJECTION 1,250 MG in NS (IVPB) 250 ML IV SCH ×2 (08:13→15:28)
--- NOTE | 2017-09-24 08:56 | Progress Note-Hospitalist ---
Progress Note HPI/CC on Admission CC: Left leg cellulitis HPI: This is a 47-year-old white male known to me from prior admission for coronary artery disease with recent stent placement one month ago by Dr. Duran who presents with left leg swelling and pain and diagnosed with cellulitis in the ER. Patient was placed on vancomycin empirically we'll add Rocephin due to the elevated white count and continued erythema although improved but will broaden antibiotic spectrum. He reports he has pain and he is constantly asking for pain medication. His primary care provider is Dr. Flowers. Progress Notes/Assess & Plan Date Seen 09/24/17 Time Seen by Provider: 09:30 Admission Dx/Process Assessment: Acute left leg cellulitis History of CAD recent stent placement Hyperlipidemia Hypertension Congestive heart failure maintain on Entresto Diagonsis/Assessment & Plan Patient much improved Left leg is much improved but still afraid to move Pain is out of proportion to clinical scenario Checked meds and labs AFVSS, Pleasant, O x 3, flat affect RRR, CTAB No edema less erythema left leg Laboratory Tests 09/24/17 07:07 Assessment: Acute left leg cellulitis improved on broad spectrum Vanc and Rocephin History of CAD recent stent placement Hyperlipidemia Hypertension Congestive heart failure maintain on Entresto Plan: Empiric antibiotics and add Rocephin to vancomycin Monitor labs Reconcile all home meds Monitor closely Pain control DVT prophylaxis DC tomorrow OOB today SONIYA JAMES DO Sep 24, 2017 08:56
[2017-09-24] MEDS ORDERED: warFARin 5 MG (COUMADIN) TAB PO SCH (10:00)
[2017-09-24] MEDS: HYDROcodone/APAP 7.5 MG/325 MG (LORTAB, LORCET PLUS) TABLET PO PRN ×2 (11:34→22:34)
--- NOTE | 2017-09-24 11:49 | Physical Therapy Evaluation ---
PT Evaluation-General Medical Diagnosis Admission Date Sep 23, 2017 at 00:55 Medical Diagnosis: cellulitis left LE Onset Date: Sep 23, 2017 Therapy Diagnosis Therapy Diagnosis: debility Height/Weight Height (Feet): 5 Height (Inches): 11.00 Weight (Pounds): 198 Weight (Ounces): 0.0 Precautions Precautions/Isolations: Fall Prevention, Standard Precautions Weight Bear Status Right Lower Extremity: Right Full Weight Bearing Left Lower Extremity: Left Full Weight Bearing Referral Physician: Kristina Reason for Referral: Evaluation/Treatment Medical History Pertinent Medical History: CAD, Heart Failure, HTN, [place] Additional Medical History PE, DVT Current History has been treated for gout without success/admitted for IV antibiotics Reviewed History: Yes Social History Home: Single Level Current Living Status: Spouse Prior/Core FIM Prior Level of Function Functional [place] Measure 0=Not Assessed/NA 4=Minimal Assistance 1=Total Assistance 5=Supervision or Setup 2=Maximal Assistance 6=Modified [place] 3=Moderate Assistance 7=Complete [place] Bed Mobility: 7 Transfers (B,C,W/C) (FIM): 7 Gait: 7 PT Evaluation-Current Subjective Patient begins crying, moaning and yelling upon PT entry. He states, "I don't want to do this." After much encouragement, patient agrees. Pain Numeric Pain Scale: 10-Worst Possible Pain Location: Left Location Body Site: Calf Pain Description: Pressure, Sharp Objective Patient Orientation: Normal For Age Problem Solving: Fair ROM/Strength ROM Lower Extremities patient declined PT to test left LE due to pain and tenderness right WFL Strength Lower Extremities right LE 5/5; left LE NT (patient refusal) Integumentary/Posture Integumentary noted redness/edema distal left LE/foot Bowel Incontinence: No Bladder Incontinence: No Posture WFL Neuromuscular (Tone, Coordination, Reflexes) grossly intact Sensory Vision: Wears Glasses Hearing: Functional Sensation Right Lower Extremit: Intact Sensation Left Lower Extremity: Intact Transfers Functional [place] Measure 0=Not Assessed/NA 4=Minimal Assistance 1=Total Assistance 5=Supervision or Setup 2=Maximal Assistance 6=Modified [place] 3=Moderate Assistance 7=Complete [place] Transfers (B, C, W/C) (FIM): 7 Scootin Rollin Supine to/from Sit: 7 Sit to/from Stand: 7 Gait Mode of Locomotion: Walk Anticipated Mode of Locomotion: Walk Gait (FIM): 1 Distance (FIM): 1=up to 49 ft Distance: 40' Gait Level of Assist: 5 Gait Assistive Device: FWW Comments/Gait Description PT instructed patient to ambulate flat foot gait sequence, however, patient refused to perform due to pain. Patient did perform TTWB left LE with use of FWW Balance Sitting Static: Normal Sitting Dynamic: Normal Standing Static: Normal Standing Dynamic: Normal Assessment/Needs 47 y.o. male, will be seen by skilled PT short term to address gait training and ROM left foot. PT encouraged patient to perform independently, however, patient refused to move his left foot or toes due to pain. When PT attempted to perform left ankle ROM, patient screamed and yelled to stop. Education with patient and spouse on importance of performing this independently vs. the possible negative side effects that could occur. Patient again refused due to pain. RN notified and aware of situation. 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 Interceptor Operator Goals PT Longterm Goals Time Frame: Sep 27, 2017 Transfers (B,C,W/C) (FIM): 7 Gait (FIM): 6 Gait distance (FIM): 3=150 ft Distance: 150' Gait Level of Assist: 6 Gait Assistive Device: None, FWW PT Plan Problem List Problem List: Other (pain control) Treatment/Plan Treatment Plan: Continue Plan of Care Treatment Plan: Education, Functional Activity Brice, Functional Strength, Gait , Safety, Therapeutic Exercise Treatment Duration: Sep 27, 2017 Frequency: 4 times per week Estimated Hrs Per Day: .25 hour per day Patient and/or Family Agrees t: Yes Safety Risks/Education Patient Education: Gait Training, Disease Process, Safety Issues Teaching Recipient: Patient, Significant Other Teaching Methods: Discussion Response to Teaching: Reinforcement Needed Time/GCodes Time In: 1100 Time Out: 1123 Total Billed Treatment Time: 23 Total Billed Treatment 1 visit EVMod 23 min ADEEL REDDY PT Sep 24, 2017 11:49
[2017-09-24 12:00] VITALS: BP 130/62
[2017-09-24 16:30] VITALS: BP 148/76
[2017-09-24] MEDS: ACETAMINOPHEN 500 MG TAB (TYLENOL) PO PRN (16:54)
[2017-09-24 20:05] VITALS: BP 132/68
[2017-09-24] MEDS: CARISOPRODOL 350 MG (SOMA) TAB PO SCH (22:24)
[2017-09-25] MEDS: VANCOMYCIN INJECTION 1,250 MG in NS (IVPB) 250 ML IV SCH ×2 (00:08→07:44)
[2017-09-25 00:35] VITALS: BP 126/80
[2017-09-25 04:03] VITALS: BP 121/78
[2017-09-25] MEDS: CATHETER FLUSH 10 ML SYR IV SCH ×2 (05:41→12:11)
[2017-09-25] MEDS: HYDROcodone/APAP 7.5 MG/325 MG (LORTAB, LORCET PLUS) TABLET PO PRN ×2 (05:41→12:11)
[2017-09-25] MEDS: PANTOPRAZOLE 20 MG TABLET (PROTONIX) PO SCH (05:41)
[2017-09-25 05:47] LABS: BASOPHILS % (AUTO) 0 % (0-10); EOSINOPHILS # (AUTO) 0.2 10^3/uL (0.0-0.3); EOSINOPHILS % (AUTO) 2 % (0-10); HEMATOCRIT 33 % (40-54); HEMOGLOBIN 10.8 G/DL (13.3-17.7); LYMPHOCYTES # (AUTO) 1.3 X 10^3 (1.0-4.0); LYMPHOCYTES % (AUTO) 12 % (12-44); MEAN CORPUSCULAR HEMOGLOBIN 29 PG (25-34); MEAN CORPUSCULAR HGB CONC 33 G/DL (32-36); MEAN CORPUSCULAR VOLUME 88 FL (80-99); MEAN PLATELET VOLUME 8.9 FL (7.4-10.4); MONOCYTES % (AUTO) 9 % (0-12); NEUTROPHILS # (AUTO) 8.1 X 10^3 (1.8-7.8); NEUTROPHILS % (AUTO) 77 % (42-75); PLATELET COUNT 631 10^3/uL (130-400); RED BLOOD COUNT 3.74 10^6/uL (4.35-5.85); RED CELL DISTRIBUTION WIDTH 14.2 % (10.0-14.5); WHITE BLOOD COUNT 10.5 10^3/uL (4.3-11.0)
[2017-09-25 06:11] LABS: ALANINE AMINOTRANSFERASE 24 U/L (0-55); ALBUMIN 3.3 GM/DL (3.2-4.5); ALKALINE PHOSPHATASE 78 U/L (40-136); BILIRUBIN,TOTAL 0.4 MG/DL (0.1-1.0); BUN/CREATININE RATIO 10; CALCIUM 9.6 MG/DL (8.5-10.1); CARBON DIOXIDE 30 MMOL/L (21-32); CHLORIDE 98 MMOL/L (98-107); GFR ESTIMATED > 60; GLUCOSE 109 MG/DL (70-105); POTASSIUM 3.6 MMOL/L (3.6-5.0); SODIUM 141 MMOL/L (135-145); TOTAL PROTEIN 7.5 GM/DL (6.4-8.2)
[2017-09-25 08:00] VITALS: BP 136/76
[2017-09-25] MEDS: ATORVASTATIN 40 MG (LIPITOR) TABLET PO SCH (08:02)
[2017-09-25] MEDS: ALLOPURINOL 300 MG (ZYLOPRIM) TAB PO SCH (08:03)
[2017-09-25] MEDS: OMEGA 3 (FISH OIL) 1000 MG CAP PO SCH ×2 (08:03→12:11)
[2017-09-25] MEDS: CLOPIDOGREL 75 MG (PLAVIX) TABLET PO SCH (08:03)
[2017-09-25] MEDS: SACUBITRIL/VALSARTAN 24/26 MG (ENTRESTO) TABLET PO SCH (08:06)
[2017-09-25] MEDS: cefTRIAXone INJECTION 1,000 MG in NS (IVPB) 50 ML IV SCH (08:07)
[2017-09-25] MEDS: GABAPENTIN 600 MG (NEURONTIN) TAB PO SCH ×2 (08:07→12:11)
--- NOTE | 2017-09-25 09:54 | Discharge Summary-Hospitalist ---
Diagnosis/Chief Complaint Date of Admission Sep 23, 2017 at 00:55 Date of Discharge Admission Diagnosis Assessment: Acute left leg cellulitis History of CAD recent stent placement Hyperlipidemia Hypertension Congestive heart failure maintain on Entresto Discharge Diagnosis Assessment: Acute left leg cellulitis improved on broad spectrum Vanc and Rocephin History of CAD recent stent placement Hyperlipidemia Hypertension Congestive heart failure maintain on Entresto Plan: Empiric antibiotics and add Rocephin to vancomycin Monitor labs Reconcile all home meds Monitor closely Pain control DVT prophylaxis DC tomorrow OOB today Discharge Summary Discharge Physical Examination Allergies: Coded Allergies: Penicillins (Unverified Allergy, Mild, 01/27/09) Vitals & I&Os Vital Signs Date Time Temp Pulse Resp B/P (MAP) Pulse Ox O2 Delivery O2 Flow Rate FiO2 09/25/17 08:00 98.8 87 18 136/76 (96) 93 Room Air Hospital Course Pt states he is ready to DC Pt confirms having BMs. Pt confirms PCP as Dr. Flowers. Pt was informed that he will remain on abx and will need to see Dr. Flowers next week, Saturday. Pt states he is unsure how much pain medication he has at home. Pt was informed that I will send some home with him. Pt confirms pharmacy as [facility]. No fever, vital signs stable, pleasant, improved Left leg much improved erythema but still peak in color no warmth out of normal Hospital course: Patient had a standard hospital course he was empirically placed on vancomycin and Rocephin due to antibiotic allergies. He improved less erythema less edema less pain and was deemed stable with normal white count at day of discharge and Coumadin was held due to supratherapeutic level and he was discharged on 5 mg of Coumadin daily less than is 7.5 alternating dose and will have his pro time checked on Saturday. Labs (last 24 hrs) Laboratory Tests 09/25/17 05:20: White Blood Count 10.5, Red Blood Count 3.74L, Hemoglobin 10.8L, Hematocrit 33L , Mean Corpuscular Volume 88, Mean Corpuscular Hemoglobin 29, Mean Corpuscular Hemoglobin Concent 33, Red Cell Distribution Width 14.2, Platelet Count 631H, Mean Platelet Volume 8.9, Neutrophils (%) (Auto) 77H, Lymphocytes (%) (Auto) 12 , Monocytes (%) (Auto) 9, Eosinophils (%) (Auto) 2, Basophils (%) (Auto) 0, Neutrophils # (Auto) 8.1H, Lymphocytes # (Auto) 1.3, Monocytes # (Auto) 1.0, Eosinophils # (Auto) 0.2, Basophils # (Auto) 0.0, Prothrombin Time 29.6H, INR Comment 2.8H, Sodium Level 141, Potassium Level 3.6, Chloride Level 98, Carbon Dioxide Level 30, Anion Gap 13, Blood Urea Nitrogen 7, Creatinine 0.70, Estimat Glomerular Filtration Rate > 60, BUN/Creatinine Ratio 10, Glucose Level 109H, Calcium Level 9.6, Total Bilirubin 0.4, Aspartate Amino Transf (AST/SGOT) 24, Alanine Aminotransferase (ALT/SGPT) 24, Alkaline Phosphatase 78, Total Protein 7.5, Albumin 3.3 Microbiology 09/22/17 Blood Culture - Preliminary, Resulted No growth Pending Labs Laboratory Tests 09/25/17 05:20: White Blood Count 10.5, Red Blood Count 3.74, Hemoglobin 10.8, Hematocrit 33, Mean Corpuscular Volume 88, Mean Corpuscular Hemoglobin 29, Mean Corpuscular Hemoglobin Concent 33, Red Cell Distribution Width 14.2, Platelet Count 631, Mean Platelet Volume 8.9, Neutrophils (%) (Auto) 77, Lymphocytes (%) (Auto) 12, Monocytes (%) (Auto) 9, Eosinophils (%) (Auto) 2, Basophils (%) (Auto) 0, Neutrophils # (Auto) 8.1, Lymphocytes # (Auto) 1.3, Monocytes # (Auto) 1.0, Eosinophils # (Auto) 0.2, Basophils # (Auto) 0.0, Prothrombin Time 29.6, INR Comment 2.8, Sodium Level 141, Potassium Level 3.6, Chloride Level 98, Carbon Dioxide Level 30, Anion Gap 13, Blood Urea Nitrogen 7, Creatinine 0.70, Estimat Glomerular Filtration Rate > 60, BUN/Creatinine Ratio 10, Glucose Level 109, Calcium Level 9.6, Total Bilirubin 0.4, Aspartate Amino Transf (AST/SGOT) 24, Alanine Aminotransferase (ALT/SGPT) 24, Alkaline Phosphatase 78, Total Protein 7.5, Albumin 3.3 Discharge Home Medications: Active Scripts Active Warfarin Sodium 5 Mg Tablet 5 Mg PO DAILY 7 Days Bactrim Ds Tablet (Sulfamethoxazole/Trimethoprim) 1 Each Tablet 1 Each PO BID Hydrocodon-Acetaminoph 7.5-325 (Hydrocodone/Acetaminophen) 1 Each Tablet 1 Tab PO Q6H PRN Reported Entresto 24 mg-26 mg Tablet (Sacubitril/Valsartan) 1 Each Tablet 1 Tab PO BID Nitroglycerin 0.4 Mg Tab.subl 0.4 Mg SL UD PRN One Daily For Men Tablet (Multivits-Minerals/FA/Lycopene) 1 Each Tablet 1 Tab PO DAILY Plavix (Clopidogrel Bisulfate) 75 Mg Tablet 75 Mg PO DAILY Prilosec Otc (Omeprazole Magnesium) 20 Mg Tablet.dr 20 Mg PO DAILY Allopurinol 300 Mg Tablet 300 Mg PO DAILY Tizanidine HCl 4 Mg Tablet 8 Mg PO Q8H PRN TAKES 2 (4MG) TABLETS Fish Oil 1,000 mg Capsule ([place] 3 Polyunsat Fatty Acids) 1,000 Mg Cap 1,000 Mg PO TID Warfarin Sodium 5 Mg Tablet 5 Mg PO SUTUTHFRSA Warfarin Sodium 5 Mg Tablet 7.5 Mg PO MOWE TAKES 1 & 1/2 (5MG) TABLETS Metoprolol Succinate 25 Mg Tab.er.24h 25 Mg PO DAILY Atorvastatin Calcium 40 Mg Tablet 40 Mg PO DAILY Gabapentin 600 Mg Tablet 600 Mg PO QID Carisoprodol 350 Mg Tablet 350 Mg PO HS Instructions to patient/family Please see electronic discharge instructions given to patient. Clinical Quality Measures DVT/VTE Risk/Contraindication: Risk Factor Score Per Nursin RFS Level Per Nursing on Admit: 4+=Very High SONIYA JAMES DO Sep 25, 2017 09:54
--- NOTE | 2017-09-25 10:11 | Physical Therapy Daily Note ---
PT Daily Note-Current Subjective Pt sitting up in bed upon arrival. Pt agrees to PT for walking but reports its painful. Pain Numeric Pain Scale: 8 Location: Left Location Body Site: Foot Pain Description: Ache, Tightness Mental Status Patient Orientation: Person, Place, Situation Attachments: IV Transfers Functional [place] Measure 0=Not Assessed/NA 4=Minimal Assistance 1=Total Assistance 5=Supervision or Setup 2=Maximal Assistance 6=Modified [place] 3=Moderate Assistance 7=Complete IndependenceIRFPAI Quality Coding Scale 6 Independent with activity with or without an assistive device 5 Patient requires set up or clean up by helper. Patient completes activity by themselves 4 Supervision or touching assist (CGA). [place] provide cues , steadying assist 3 The helper provides less than half the effort to complete the activity 2 The helper provides more than half the effort to complete the activity 1 Dependent. The helper does all the effort to complete an activity 7 Patient refused to complete or attempt activity 9 The patient did not perform the activity before the current illness or injury 88 Not attempted due to Medical conditions or safety concerns Scootin Rollin Supine to/from Sit: 5 Sit to/from Stand: 5 Weight Bearing Right Lower Extremity: Right Full Weight Bearing Left Lower Extremity: Left Full Weight Bearing Gait Training Distance (FIM): 3=150 ft Distance: 200' Gait Level of Assist: 5 Gait Persons Needed: 1 Gait Assistive Device: FWW Pt will only TTWB despite encouragement from [employer] [facility]. Pt moans/groans in pain during ambulation. Pt has very slow claudia, all most a hoping gait pattern due to pt imposed TTWB. Treatments Pt transfers from Supine to EOB to standing at FWW at [facility]. Pt ambulates using FWW in hallway at [facility]. Pt returns to room to rest supine in bed at end of walk with all needs met. Assessment Current Status: Good Progress Pt moans & groans throughout WB. Pt needs encouragement to put more WB/walk flat foot during ambulation. Pt needs encouragement to focus on something other than the pain to try to push through. PT Brand Protection Manager Goals Correction Goals PT Correction Goals Time Frame: Sep 27, 2017 Transfers (B,C,W/C) (FIM): 7 Gait (FIM): 6 Gait distance (FIM): 3=150 ft Distance: 150' Gait Level of Assist: 6 Gait Assistive Device: None, FWW PT Plan Problem List Problem List: Activity Tolerance, Functional Strength, Safety, Balance, Gait Treatment/Plan Treatment Plan: Continue Plan of Care Treatment Plan: Education, Functional Activity Brice, Functional Strength, Gait , Safety, Therapeutic Exercise Treatment Duration: Sep 27, 2017 Frequency: 4 times per week Estimated Hrs Per Day: .25 hour per day Patient and/or Family Agrees t: Yes Safety Risks/Education Patient Education: Gait Training, Correct Positioning, Disease Process, Safety Issues Teaching Recipient: Patient Teaching Methods: Discussion Response to Teaching: Verbalize Understanding Time/GCodes Time In: 910 Time Out: 927 Total Billed Treatment Time: 17 Total Billed Treatment 1, GT (17m) STEFFEN POE [employer] [facility] Sep 25, 2017 10:11
[2017-09-25] MEDS: fentaNYL INJECTION 100 MCG/2 ML AMP IVP PRN (10:23)
[2017-09-25] MEDS ORDERED: HYDR-34 PO (10:49)
[2017-09-25] MEDS ORDERED: SULF1TAB35 PO (10:49)
[2017-09-25] MEDS ORDERED: WARF-48 PO (10:49)
[2017-09-25 11:09] LABS: INR 2.8 (0.8-1.4); PROTHROMBIN TIME PATIENT 29.6 SEC (12.2-14.7)
[2017-09-25 12:00] VITALS: BP_SYST 130; BP_SYST 136; BP_DIAS 76
== END 2017-09-25 13:00 | disposition home or self-care (01) | DRG 603 ==
LOC: EDUNIT# 23:01 → ER 23:03 → 4TH 09-23 00:55
PROVIDERS: ADMIT Internal Medicine; ATTEND Internal Medicine
DX: L03.116 Cellulitis of left lower limb (principal); I25.10 Atherosclerotic heart disease of native coronary artery without angina pectoris; Z95.5 Presence of coronary angioplasty implant and graft; E78.5 Hyperlipidemia, unspecified; I11.0 Hypertensive heart disease with heart failure; I50.9 Heart failure, unspecified; I25.2 Old myocardial infarction; Z86.718 Personal history of other venous thrombosis and embolism; M10.9 Gout, unspecified; K21.9 Gastro-esophageal reflux disease without esophagitis; E78.00 Pure hypercholesterolemia, unspecified; Z87.891 Personal history of nicotine dependence
CPT/HCPCS: 36415; 80053; 80202; 83605; 85025; 85610; 85652; 85730; 86141; 87040; 96374; 96375

== ENCOUNTER → 2017-10-14 | Outpatient (CLI) | payer BC ==
[~2017-10-14] MED LIST changes: +ALLO300T2 PO; +CLOP75TA69 PO; +MULT-851 PO; +NITR0.4T42 SL; +OMEP20TA33 PO; +SACU1TAB PO; +SULF1TAB35 PO
== END ==
LOC: WOUNDCARE 11:45
PROVIDERS: ATTEND Surgery
DX: I75.022 Atheroembolism of left lower extremity (principal); G63 Polyneuropathy in diseases classified elsewhere; M79.662 Pain in left lower leg
CPT/HCPCS: 99213

== ENCOUNTER 2017-10-17 09:38 | Outpatient (RCR) | payer BC ==
[2017-08-30 11:28] LABS: INR 2.4 (0.8-1.4); PROTHROMBIN TIME PATIENT 26.4 SEC (12.2-14.7)
[~2017-10-17 09:38] MED LIST changes: -CATHETER FLUSH 10 ML SYR IV PRN; -IOHEXOL 350 MG/ML 150 ML (OMNIPAQUE 350) VIAL IV ONE; -NS 250 ML (IVPB) BAG IV ONE; -RECEIVED CONTRAST (Hold Metformin) IV SCH
[2017-10-17 10:14] LABS: INR 2.1 (0.8-1.4); PROTHROMBIN TIME PATIENT 23.3 SEC (12.2-14.7)
== END 2017-11-28 | disposition home or self-care (01) ==
LOC: LAB 09:38
PROVIDERS: ATTEND Internal Medicine Cardiovascular Disease
DX: I26.99 Other pulmonary embolism without acute cor pulmonale (principal); Z79.01 Long term (current) use of anticoagulants
CPT/HCPCS: 36415; 85610

== ENCOUNTER → 2017-10-17 | Outpatient (CLI) | payer BC ==
[~2017-10-17] MED LIST changes: +CATHETER FLUSH 10 ML SYR IV PRN; +IOHEXOL 350 MG/ML 150 ML (OMNIPAQUE 350) VIAL IV ONE; +NS 250 ML (IVPB) BAG IV ONE; +RECEIVED CONTRAST (Hold Metformin) IV SCH
--- NOTE | 2017-10-17 16:42 | Diagnostic Imaging Report ---
INDICATION: Left foot swelling and pain. Recent endovascular intervention. COMPARISON: 01/09/2017. TECHNIQUE: Postcontrast CTA was obtained through the abdomen, pelvis, and bilateral lower extremities. Multiplanar and 3D reformats were also performed and reviewed. FINDINGS: Included portions of the lung bases are clear. CTA ABDOMEN: There is mild calcified aortic atherosclerosis. There is no evidence of dissection, aneurysm, nor focal stenosis. 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 Otherwise, the celiac trunk and superior mesenteric arteries are patent. There are two renal arteries, bilaterally. Accessory renal artery is seen superiorly on the left and inferiorly on the right. Both the main and accessory renal arteries appear to be patent without evidence of focal stenosis. There is also normal opacification of the inferior mesenteric artery. The kidneys, adrenal glands, spleen, pancreas, and liver have a normal CT appearance. Small bowel loops are nondistended. Normal appendix is identified. There is no loculated fluid collection, free fluid, nor free air within the abdomen. No abnormal mesenteric or retroperitoneal adenopathy is seen. Bony structures show no acute abnormalities. CTA PELVIS: There is [id number] calcified and noncalcified atherosclerotic disease of the bilateral common iliac arteries. This results in approximately 30% narrowing, bilaterally. Note is made of suggestion of focal ulceration on the right (image 81, series 5 and image 54, series 7). There is mild atherosclerotic disease of the bilateral external iliac arteries, but no additional focal hemodynamically significant stenosis is identified. Urinary bladder is unopacified. No calculi are seen within the urinary bladder. There is no loculated fluid collection, free fluid, nor free air within the pelvis. No abnormal lymph nodes are identified. Bony structures show no acute abnormalities. CTA RIGHT LOWER EXTREMITY: The right common femoral, superficial femoral, and popliteal arteries have a normal appearance. There is no significant atherosclerotic disease. Calf arteries are difficult to evaluate on this exam secondary to their small caliber, but the anterior and posterior tibial arteries are patent at least to the ankle. Osseous structures of the right lower extremity are unremarkable. No acute osseous abnormalities are identified. Superficial soft tissue structures are unremarkable as well. CTA LEFT LOWER EXTREMITY: The left common femoral, superficial femoral, and popliteal arteries are normal in appearance as well. There is no evidence of focal hemodynamically significant stenosis. Evaluation of the calf arteries is also suboptimal on the left secondary to their small caliber. Additionally, there is moderate asymmetric soft tissue edema. The anterior and posterior tibial arteries, however, do appear to be patent at least to the ankle. Again, there is moderate soft tissue edema. There is no abnormal soft tissue emphysema. No unexpected radiopaque foreign bodies are seen. No focal fluid collections are identified. Note is made, however, of asymmetric osteolytic appearance to the medial malleolus of the distal left tibia as well as the underlying lateral margins of the talus, calcaneus, and navicular bones. IMPRESSION: 1. Mild atherosclerotic disease of the abdominal aorta, but no evidence of focal stenosis, dissection, or aneurysm. 2. 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 3. [id number] atherosclerotic disease of the bilateral common iliac arteries with suggestion of ulcerative plaque on the right. 4. No hemodynamically significant arterial stenosis of either lower extremity. 5. Abnormal soft tissue edema of the left foot and ankle. Correlation for cellulitis is recommended. Additionally, there is abnormal asymmetric osteolysis of the osseous structures of the medial left foot and ankle concerning for underlying osteomyelitis. Correlation with MRI is recommended. Dictated by: Dictated on workstation # [id number]
== END ==
LOC: RAD 15:13
PROVIDERS: ATTEND Internal Medicine Cardiovascular Disease
DX: I70.0 Atherosclerosis of aorta (principal); I70.8 Atherosclerosis of other arteries; I25.10 Atherosclerotic heart disease of native coronary artery without angina pectoris; I82.409 Acute embolism and thrombosis of unspecified deep veins of unspecified lower extremity; I26.99 Other pulmonary embolism without acute cor pulmonale; M89.572 Osteolysis, left ankle and foot; I10 Essential (primary) hypertension; R06.00 Dyspnea, unspecified; F17.200 Nicotine dependence, unspecified, uncomplicated
CPT/HCPCS: 75635

== ENCOUNTER → 2017-10-24 | Outpatient (CLI) | payer BC ==
[2017-10-24 11:25] LABS: HEMOGLOBIN 14.2 G/DL (13.3-17.7); MEAN PLATELET VOLUME 8.6 FL (7.4-10.4); RED BLOOD COUNT 5.13 10^6/uL (4.35-5.85); RED CELL DISTRIBUTION WIDTH 16.2 % (10.0-14.5); WHITE BLOOD COUNT 14.3 10^3/uL (4.3-11.0)
--- NOTE | 2017-10-24 11:39 | Diagnostic Imaging Report ---
INDICATION: Left foot redness and swelling. TIME OF EXAMINATION: 11:34 a.m. FINDINGS: Three views of the left foot were obtained. The metatarsals are intact. The phalanges are intact. No fractures are seen. Midfoot is unremarkable. Small plantar calcaneal spur is noted. IMPRESSION: No acute bony abnormalities detected. Dictated by: Dictated on workstation # [id number]
[2017-10-24 11:43] LABS: URIC ACID 3.4 MG/DL (2.6-7.2)
--- NOTE | 2017-10-24 11:59 | Diagnostic Imaging Report ---
INDICATION: Redness and swelling to the left ankle. TIME OF EXAM: 11:34 AM Three views of the left ankle were obtained. FINDINGS: Alignment is normal. There does appear to be some generalized soft tissue swelling both medially and laterally. Ankle mortise is maintained. There is some questionable bony destructive changes involving the medial malleolus. This could be on the basis of osteomyelitis. No soft tissue gas is identified. No acute fracture is seen. Posterior and plantar calcaneal spurs are noted. Midfoot is unremarkable. IMPRESSION: Soft tissue swelling and destructive changes of the medial malleolus. This has changed when compared with ankle radiographs from one month earlier. Infectious etiology cannot be excluded and MRI would be useful for further evaluation. Dictated by: Dictated on workstation # [id number]
== END ==
LOC: RAD 10:27
PROVIDERS: ATTEND Internal Medicine Rheumatology
DX: M79.89 Other specified soft tissue disorders (principal)
CPT/HCPCS: 36415; 73610; 73630; 84550; 85027; 86141

== ENCOUNTER → 2017-10-24 | Outpatient (CLI) | payer BC ==
[2017-10-24 11:16] LABS: BASOPHILS % (AUTO) 0 % (0-10); EOSINOPHILS # (AUTO) 0.1 10^3/uL (0.0-0.3); EOSINOPHILS % (AUTO) 0 % (0-10); HEMATOCRIT 44 % (40-54); HEMOGLOBIN 14.2 G/DL (13.3-17.7); LYMPHOCYTES # (AUTO) 2.8 X 10^3 (1.0-4.0); LYMPHOCYTES % (AUTO) 20 % (12-44); MEAN CORPUSCULAR HEMOGLOBIN 28 PG (25-34); MEAN CORPUSCULAR HGB CONC 33 G/DL (32-36); MEAN CORPUSCULAR VOLUME 85 FL (80-99); MEAN PLATELET VOLUME 8.6 FL (7.4-10.4); MONOCYTES # (AUTO) 0.8 X 10^3 (0.0-1.0); MONOCYTES % (AUTO) 6 % (0-12); NEUTROPHILS # (AUTO) 10.6 X 10^3 (1.8-7.8); NEUTROPHILS % (AUTO) 74 % (42-75); PLATELET COUNT 391 10^3/uL (130-400); RED BLOOD COUNT 5.13 10^6/uL (4.35-5.85); RED CELL DISTRIBUTION WIDTH 16.2 % (10.0-14.5); WHITE BLOOD COUNT 14.3 10^3/uL (4.3-11.0)
[2017-10-24 11:35] LABS: ALANINE AMINOTRANSFERASE 17 U/L (0-55); ALBUMIN 3.9 GM/DL (3.2-4.5); ALKALINE PHOSPHATASE 102 U/L (40-136); BILIRUBIN,TOTAL 0.2 MG/DL (0.1-1.0); BUN/CREATININE RATIO 11; CALCIUM 9.7 MG/DL (8.5-10.1); CARBON DIOXIDE 25 MMOL/L (21-32); CHLORIDE 103 MMOL/L (98-107); CREATININE SERUM 0.75 MG/DL (0.60-1.30); GFR ESTIMATED > 60; GLUCOSE 112 MG/DL (70-105); POTASSIUM 3.3 MMOL/L (3.6-5.0); SODIUM 142 MMOL/L (135-145); TOTAL PROTEIN 7.6 GM/DL (6.4-8.2)
[2017-10-24 11:43] LABS: ANISOCYTOSIS SLIGHT; BAND NEUTROPHILS 0 %; BASOPHILS % (MANUAL) 0 %; EOSINOPHILS % (MANUAL) 1 %; ERYTHROCYTE SEDIMENTATION RATE 10 MM/HR (0-15); LYMPHOCYTES % (MANUAL) 22 %; MONOCYTES % (MANUAL) 3 %; NEUTROPHILS % (MANUAL) 74 %
== END ==
LOC: LAB 10:36
PROVIDERS: ATTEND Internal Medicine Cardiovascular Disease
DX: I25.10 Atherosclerotic heart disease of native coronary artery without angina pectoris (principal); R07.89 Other chest pain; I10 Essential (primary) hypertension; K27.9 Peptic ulcer, site unspecified, unspecified as acute or chronic, without hemorrhage or perforation; R06.02 Shortness of breath; I21.3 ST elevation (STEMI) myocardial infarction of unspecified site
CPT/HCPCS: 36415; 80053; 85007; 85027; 85652; 86038; 86430; 86618; 86666; 86668; 86757

== ENCOUNTER 2017-11-29 00:17 | Outpatient (RCR) | payer BC ==
[~2017-11-29 00:17] MED LIST changes: -GEMF600T3 PO; +GEMF600T4 PO; -INDO25CA PO; +INDO25CA15 PO
[2018-03-15 13:01] LABS: INR 3.7 (0.8-1.4); PROTHROMBIN TIME PATIENT 37.1 SEC (12.2-14.7)
== END 2018-03-31 | disposition home or self-care (01) ==
LOC: LAB 00:17
PROVIDERS: ATTEND Internal Medicine Cardiovascular Disease
DX: I26.99 Other pulmonary embolism without acute cor pulmonale (principal); Z79.01 Long term (current) use of anticoagulants
CPT/HCPCS: 36415; 85610

== ENCOUNTER 2018-04-22 12:38 | Outpatient (RCR) | payer BC ==
[~2018-04-22 12:38] MED LIST changes: +HYDR-4226 PO
[2018-04-22 13:28] LABS: INR 3.1 (0.8-1.4); PROTHROMBIN TIME PATIENT 31.9 SEC (12.2-14.7)
== END 2018-04-25 | disposition home or self-care (01) ==
LOC: LAB 12:38
PROVIDERS: ATTEND Internal Medicine Cardiovascular Disease
DX: I26.99 Other pulmonary embolism without acute cor pulmonale (principal); Z79.01 Long term (current) use of anticoagulants
CPT/HCPCS: 36415; 85610

== ENCOUNTER 2018-07-11 14:03 | Observation (INO) | payer BC ==
[~2018-07-11] VITALS: Ht 165.1 cm; Wt 94.9 kg
--- OUTSIDE RECORDS SUMMARY | 2018-07-11 14:08 | XMS REPORT | Clinical Summary ---
Author Author [facility] Organization [facility] Address Unknown Phone Unavailable Care Team Providers Care Utility System Operator Name Role Phone Jayro Duran MD 21 John Flowers MD PCP Source Comments Some departments are not documenting in the electronic medical record. If you do not see the information that you expected, contact Release of Information in the Health Information Management department at [phone] for further assistance in locating additional records.[facility] Allergies Active Allergy Reactions Severity Noted Date Comments Penicillins UNKNOWN Low 08/07/2017 Pneumococcal Vaccine RASH Medium 04/04/2018 Cellulitis type rash. Current Medications Prescription Sig. Disp. Refills Start [...] by mouth Active mg tablet twice daily. [place]-3 Acid Ethyl Esters Take 1 g by mouth three Active 1 gram cap times daily. tiZANidine (ZANAFLEX) 4 Take 8 mg by mouth every Active mg tabletIndications: 8 hours as needed. Muscle Spasm Indications: MUSCLE SPASM warfarin (COUMADIN) 5 mg Take 5 mg by mouth as Active tabletIndications: directed. Take 7.5 mg by thrombotic disorder mouth on Sat and Sat. Take 5 [...] mg by mouth Active mg tablet daily. HYDROcodone/acetaminophen Take 1 tablet by mouth Active (+) (NORCO) 10/325 mg every 6 hours as needed tablet for Pain aspirin 325 mg tablet Take 325 mg by mouth Active daily. Take with food. LOSARTAN PO Take by mouth. Active oxycodone(+) (ROXICODONE, Take 10 mg by mouth every Active OXY-IR) 10 mg tablet 6 hours as needed for Pain NIFEdipine (PROCARDIA; Take 10 mg by mouth three Active ADALAT) 10 mg capsule times daily. pregabalin (LYRICA) 100 Take one capsule by mouth 90 capsule 3 Active mg capsule three times daily. Take 1 18 cap qhs x5d, then 1 cap bid x5d, then 1 cap tid thereafter Active Problems Problem Noted Date CAD (coronary artery disease) 08/12/2017 Coronary artery disease involving [place] coronary artery of [place] heart with angina pectoris (HCC) Overview: 07/12/17 - NSTEMI at [place], [place]. Successful PCI with a Resolute Integrity 2.5 x 26 mm stent to the OM with Dr. Rhoades. Unsuccessful PCI to the RCA [place]. Pt referred to Dr. Warner for possible [place] procedure. 08/06/16 - Nuclear stress test ([facility]): No ischemia or arrhythmia on EKG. Diaphragmatic attenuation with reversible ischemia involving the mid to apical inferior wall and inferolateral wall. Normal left ventricular size with mild hypokinesis at the lateral wall. EF 50%. Previous history of Promus stent placement to OM - date unknown. NSTEMI (non-ST elevated myocardial infarction) (HCC) 08/07/2017 Overview: 07/12/17 at [facility] in [place], [place]. Tobacco abuse 08/07/2017 Ischemic cardiomyopathy 08/07/2017 Overview: 07/12/17 - Echo ([facility]): EF 30-35%. Left ventricular cavity size increased. [...] Encounters Date Type Specialty Care Team Description 06/05/2018 Office Visit Anesthesia Pain Emile Eganlamagdalena, Complex regional pain MD syndrome type 1 of left GayleDamon MD lower extremity (Primary Dx); Neuropathic pain; Left leg pain; Allodynia 04/11/2018 Telephone Dermatology Mehul Persaud MD Results from Last 3 Months Family History Relation Name Status Comments Father Alive Mother Social History Tobacco Use Types Packs/Day Years Used Date Current Every Day Smoker Smokeless Tobacco: Never Used Alcohol Use Drinks/Week oz/Week Comments No Sex Assigned at Date Recorded Not on file Last Filed Vital Signs Vital Sign Reading Time Taken Blood Pressure 117/71 06/05/2018 9:14 AM CDT Pulse 91 06/05/2018 9:14 AM CDT Temperature 37.1 C (98.7 F) 08/13/2017 6:15 AM DIGITAL ASSISTANT Respiratory Rate 17 06/05/2018 9:14 AM CDT Oxygen Saturation 94% 06/05/2018 9:14 AM CDT Inhaled Oxygen - - Concentration Weight 87.1 kg (192 lb) 06/05/2018 9:14 AM CDT Height 162.6 cm (5' 4") 06/05/2018 9:14 AM CDT Body Mass Index 32.96 06/05/2018 9:14 AM CDT Plan of Treatment Health Maintenance Due Date Last Done Comments PHYSICAL (COMPREHENSIVE) 1979 EXAM PERTUSSIS VACCINE 1983 HIV SCREENING 1987 TETANUS VACCINE 1989 INFLUENZA VACCINE 03/26/2018 Results Not on filefrom Last 3 Months
--- OUTSIDE RECORDS SUMMARY | 2018-07-11 14:08 | XMS REPORT | Encounter Summary ---
Author Author [facility] Organization [facility] Address Unknown Phone Unavailable Care Team Providers Care Parachute Repairer Name Role Phone Jayro Duran MD 21 John Flowers MD PCP Reason for Visit * Reason Comments Pain Pain * Consult, Test & Treat (Routine) Status Reason Specialty Diagnoses / Referred By Referred To Procedures Contact Contact No Auth Needed Specialty Anesthesia Pain Diagnoses Emile Egan Spn Anes Pain Services Reflex MD Cricket Cl Required sympathetic [address] [facility] [place] [address] [place] [address] Phone: Fax: Encounter Details Date Type Department Care Team Description 06/05/2018 Office Visit [facility] Emile Egan , Complex regional pain Pain Clinic syndrome type 1 of left [id number] lower extremity ([place] [address] [address] Dx); [phone] [place] [address] Neuropathic pain; [phone] Left leg pain; Allodynia L Damon smith MD [address] [address] [place] [address] [phone] Social History Tobacco Use Types Packs/Day Years Used Date Current Every Day Smoker Smokeless Tobacco: Never Used Alcohol Use Drinks/Week oz/Week Comments No Sex Assigned at Date Recorded Not on file as of this encounter Last Filed Vital Signs Vital Sign Reading Time Taken Blood Pressure 117/71 06/05/2018 9:14 AM CDT Pulse 91 06/05/2018 9:14 AM CDT Temperature - - Respiratory Rate 17 06/05/2018 9:14 AM CDT Oxygen Saturation 94% 06/05/2018 9:14 AM CDT Inhaled Oxygen - - Concentration Weight 87.1 kg (192 lb) 06/05/2018 9:14 AM CDT Height 162.6 cm (5' 4") 06/05/2018 9:14 AM CDT Body Mass Index 32.96 06/05/2018 9:14 AM CDT in this encounter Functional Status Functional Status Response Date of Assessment Does the patient have a hearing impairment: No 06/05/2018 Does the patient have a visual impairment: Yes 06/05/2018 Does the patient have impaired ambulation: No 06/05/2018 Does the patient have an activity of daily living No 06/05/2018 (ADL) impairment: Does the patient have an instrumental activity of No 06/05/2018 daily living (IADL) impairment: Cognitive Status Response Date of Assessment Does the patient have a cognitive impairment: No 06/05/2018 as of this encounter Instructions * Patient Instructions - Eufemia Gonzalez - 06/05/2018 9:00 AM CDT General Instructions: How to reach me: Please send a Work4 message to the [facility] or leave a voicemail for my nurse Carla at [phone]. Scheduling: Our scheduling phone number is [phone]. How to get a medication refill: Five business days before refill needed, please use the Work4 Refill request or contact your pharmacy directly to request medication refills. How to receive your test results: If you have signed up for Work4, you will receive your test results and messages from me this way. Otherwise, you will get a phone call or letter. If you are expecting results and have not heard from my office within 2 weeks of your testing, please send a Work4 message or call my office. Support for many chronic illnesses is available through [employer]: [employer] or [phone]. For questions on nights, weekends or holidays, call the bridge operator slip at , and ask for the doctor garbage person for Anesthesia Pain Management. in this encounter Progress Notes * Carla Baron, RN - 06/05/2018 9:00 AM CDT Patient unsure where MRI L-spine completed in the last year. Checked with [facility] but they have no records of MRI. If pt remembers where he had MRI completed, he will notify the office. * Damon Araujo MD - 06/05/2018 9:00 AM CDT Formatting of this note may be different from the original. Dear Dr. Emile Egan, I appreciate your kind referral of Robinson Linda for evaluation of pain. Please see my note below for the full details of the evaluation and management plan. Thank you, Damon Araujo MD [facility] - Inter[facility] Pain NEW PATIENT HISTORY AND PHYSICAL Subjective Chief Complaint: LLE pain HPI: Robinson Linda is a 47 y.o. male who has a past medical history of Coronary artery disease involving [place] coronary artery of [place] heart with angina pectoris ([facility]) (08/07/2017); Coronary artery disease involving [place] coronary artery of [place] heart with angina pectoris ([facility]) (08/07/2017); Ischemic cardiomyopathy; Mild mitral regurgitation (08/07/2017); Mild tricuspid regurgitation (08/07/2017); NSTEMI (non-ST elevated myocardial infarction) ([facility] ) (08/07/2017); Protein S deficiency ([facility]) (08/07/2017); and Tobacco abuse (). who now presents for initial consultation. The pain is in the left leg. It is circumferential from the knee down to the toes. Pain started: 06/2017 Initial inciting injury or event: No Numbness/tingling: Yes The pain ranges 8-10/10 The pain is described as aching, stabbing, shooting, burning, throbbing. The pain is exacerbated by standing, bending. The pain is partially alleviated by medication, ice, heat, rest. No muscle tightness. There is allodynia. It sometimes feels cooler than the other leg. Difference in sweating. Difference in hair/nail growth. There is markedly limited ROM of the ankle. There is purplish hue. +edema He talks about considering amputation below the knee. PRIOR MEDICATIONS: Effective Ineffective ASA Capsaicin Gabapentin 600mg tid Tizanidine Lidocaine patch Unable to tolerate NSAID Never Lyrica Ami/Nortriptyline Cymbalta PRIOR INTERVENTIONS: No spine surgery Effective Ineffective Lumbar sympathectomy Physician-ordered PT Robinson Linda denies any recent fevers, chills, infection, antibiotics, bowel or bladder incontinence, saddle anesthesia. On Plavix and Coumadin. ROS: All 14 systems reviewed and found to be negative except as above and as follows. +gout, cold/heat intolerance. Past Medical History: Past Medical History: Diagnosis Date Coronary artery disease involving [place] coronary artery of [place] heart with angina pectoris ([facility]) 08/07/2017 Coronary artery disease involving [place] coronary artery of [place] heart with angina pectoris ([facility]) 08/07/2017 07/12/17 - NSTEMI at [facility] in [place], [place]. Successful PCI with a Resolute Integrity 2.5 x 26 mm stent to the OM with Dr. Rhoades. Unsuccessful PCI to the RCA INSTRUCTOR PRODUCT INSPECTION. Pt referred to Dr. Warner for possible INSTRUCTOR PRODUCT INSPECTION procedure. 08/06/16 - Nuclear stress test ([facility]): No ischemia or arrhythmia on EKG. Diaphragmatic attenuation with reversible ischemia involving the mid to apic Ischemic cardiomyopathy Mild mitral regurgitation 08/07/2017 Mild tricuspid regurgitation 08/07/2017 NSTEMI (non-ST elevated myocardial infarction) ([facility]) 08/07/2017 Protein S deficiency ([facility]) 08/07/2017 Tobacco abuse 08/07/2017 Family History: History reviewed. No pertinent family history. Social History: Lives in [facility] [id number] Social History Social History Marital status: Spouse name: N/A Number of children: N/A Years of education: N/A Occupational History Not on file. Social History Main Topics Smoking status: Current Every Day Smoker Smokeless tobacco: Never Used Alcohol use No Drug use: No Sexual activity: Not on file Other Topics Concern Not on file Social History Narrative No narrative on file Allergies: Allergies Allergen Reactions Pneumococcal Vaccine RASH Cellulitis type rash. Pcn [Penicillins] UNKNOWN Medications: Current Outpatient Prescriptions: aspirin 325 mg tablet, Take 325 mg by mouth daily. Take with food., Disp: , Rfl: atorvastatin (LIPITOR) 40 mg tablet, Take 40 mg by mouth daily., Disp: , Rfl: carisoprodol(+) (SOMA) 350 mg tablet, Take 350 mg by mouth at bedtime daily., Disp: , Rfl: clopiDOGrel (PLAVIX) 75 mg tablet, Take 75 mg by mouth daily., Disp: , Rfl : gabapentin (NEURONTIN) 600 mg tablet, Take 600 mg by mouth four times daily., Disp: , Rfl: gemfibrozil (LOPID) 600 mg tablet, Take 600 mg by mouth twice daily., Disp : , Rfl: HYDROcodone/acetaminophen(+) (NORCO) 10/325 mg tablet, Take 1 tablet by mouth every 6 hours as needed for Pain, Disp: , Rfl: LOSARTAN PO, Take by mouth., Disp: , Rfl: NIFEdipine (PROCARDIA; ADALAT) 10 mg capsule, Take 10 mg by mouth three times daily., Disp: , Rfl: nitroglycerin (NITROSTAT) 0.4 mg tablet, Place 0.4 mg under tongue every 5 minutes as needed for Chest Pain. Max of 3 tablets, call 911., Disp: , Rfl: Bowie-3 Acid Ethyl Esters 1 gram cap, Take 1 g by mouth three times daily. , Disp: , Rfl: omeprazole DR(+) (PRILOSEC) 20 mg capsule, Take 20 mg by mouth daily before breakfast., Disp: , Rfl: oxycodone(+) (ROXICODONE, OXY-IR) 10 mg tablet, Take 10 mg by mouth every 6 hours as needed for Pain, Disp: , Rfl: tiZANidine (ZANAFLEX) 4 mg tablet, Take 8 mg by mouth every 8 hours as needed. Indications: MUSCLE SPASM, Disp: , Rfl: warfarin (COUMADIN) 5 mg tablet, Take 5 mg by mouth as directed. Take 7.5 mg by mouth on Sat and Sat. Take 5 mg by mouth on Saturday, , , Sat, and Sat. Take at bedtime. Indications: THROMBOTIC DISORDER, Disp: , Rfl: Physical examination: BP 117/71 | Pulse 91 | Resp 17 | Ht 162.6 cm (64") | Wt 87.1 kg (192 lb) | SpO2 94% | BMI 32.96 kg/m Pain Score: Nine General: The patient is a well-developed, well nourished 47 y.o. male in no acute distress. HEENT: Head is normocephalic and atraumatic. Pupils are equal and reactive to light bilaterally. Cardiac: Based on palpation, pulse appears to be regular rate and rhythm. Pulmonary: The patient has unlabored respirations and bilateral symmetric chest excursion. Abdomen: Soft, nontender, and nondistended. There is no rebound or guarding. Extremities: No clubbing, cyanosis, or edema. Neurologic: The patient is alert and oriented times 3. Cranial nerves II through XII are intact without any focal deficits. There is no sensory deficit to light touch or pinprick in the affected areas. There is no allodynia noted. Musculoskeletal: Sitting in a wheelchair. L-Spine There is no point vertebral tenderness in the midline. There is mild-mod low lumbar paraspinal tenderness. Paraspinal muscle tone is normal. Facet loading is positive. There is no tenderness or radiating pain with palpation over the SI joints, piriformis, or greater trochanteric bursae bilaterally. ROM with flexion, extension, rotation, and lateral bending is intact. Strength is equal and adequate bilaterally in the flexors and extensors of the bilateral lower extremities. SLR is positive in the LLE. Last Cr and LFT's: Creatinine Date Value Ref Range Status 08/13/2017 0.72 0.4 - 1.24 MG/DL Final Assessment: Robinson Linda is a 47 y.o. male who has a past medical history of Coronary artery disease involving [place] coronary artery of [place] heart with angina pectoris ([facility]) (08/07/2017); Coronary artery disease involving [place] coronary artery of [place] heart with angina pectoris ([facility]) (08/07/2017); Ischemic cardiomyopathy; Mild mitral regurgitation (08/07/2017); Mild tricuspid regurgitation (08/07/2017); NSTEMI (non-ST elevated myocardial infarction) ([facility] ) (08/07/2017); Protein S deficiency ([facility]) (08/07/2017); and Tobacco abuse (). who presents for evaluation of LLE pain. The pain complaints are most likely due to: 1. Complex regional pain syndrome type 1 of left lower extremity 2. Neuropathic pain 3. Left leg pain 4. Allodynia Patient has had an adequate trial of > 3 months of rest, exercise, NSAID's, multimodal treatment, and the passage of time without improvement of symptoms. The pain has significant impact on the daily quality of life. Plan: 1. Will trial Lyrica 100mg up to tid instead of the gabapentin. 2. Consider trial of Nortriptyline 25mg up to 75mg qhs next. 3. If he fails to improve, could potentially consider SCS trial with Nevro HF10. 4. Will request record of L-Spine MRI to evaluate for neuraxial etiology. 5. Follow up as needed. Risks/benefits of all pharmacologic and interventional treatments discussed and questions answered. Thank you for this kind referral for consultation. Please feel free to contact me with any questions or concerns. in this encounter Plan of Treatment Not on fileas of this encounter Visit Diagnoses Diagnosis Complex regional pain syndrome type 1 of left lower extremity - Primary Neuropathic pain Neuralgia, neuritis, and radiculitis, unspecified Left leg pain Pain in limb Allodynia Disturbance of skin sensation
--- OUTSIDE RECORDS SUMMARY | 2018-07-11 14:08 | XMS REPORT | Encounter Summary ---
Author Author [facility] Organization [facility] Address Unknown Phone Unavailable Care Team Providers Care Produce Clerk Name Role Phone Jayro Duran MD 21 John Flowers MD PCP Reason for Referral * Consult, Test & Treat (Routine) Status Reason Specialty Diagnoses / Referred By Referred To Procedures Contact Contact No Auth Needed Specialty Anesthesia Pain Diagnoses Emile Egan Spn Anes Pain Services Reflex MD Cricket Cl Required sympathetic [address] [facility] [place] [address] [place], [place] [phone] Phone: Fax: Reason for Visit * Reason Comments Results Encounter Details Date Type Department Care Team Description 04/11/2018 Telephone [facility] Mehul Persaud MD Results Physicians - Internal [address] [facility] [place] [address] [facility] [address] [place] [address] Social History Tobacco Use Types Packs/Day Years Used Date Current Every Day Smoker Smokeless Tobacco: Never Used Alcohol Use Drinks/Week oz/Week Comments No Sex Assigned at Date Recorded Not on file as of this encounter Miscellaneous Notes * Telephone Encounter - Mehul Persaud MD - 04/11/2018 6:39 PM CDT Disclosed and discussed biopsy results which were nonspecific (neg for lymphoma/ infection). 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 Referral to pain clinic placed for additional management of condition. in this encounter Plan of Treatment Name Priority Associated Diagnoses Order Schedule AMB REFERRAL TO PAIN CLINIC Routine Reflex sympathetic Ordered: 2017 dystrophy as of this encounter Visit Diagnoses Diagnosis Reflex sympathetic dystrophy - Primary Reflex sympathetic dystrophy, unspecified
--- OUTSIDE RECORDS SUMMARY | 2018-07-11 14:14 | XMS REPORT | Continuity of Care Document ---
Author Author [facility] Address Unknown Phone Unavailable Allergies Active Description Code Type Severity Reaction Onset Reported/Identified Relationship to Patient Clinical Status Yes PENICILLINS MODERATE OTHER Yes Penicillins [id number] Drug Allergy Mild N/A 01/27/2009 Yes Penicillins Drug Allergy 07/16/2009 Yes Penicillins Drug Allergy N/A N/A 07/16/2009 Medications Medication Packaging Start Date Stop Date Route Dosage Sig NORMAL SALINE 1000CC IV BAG INJ 0.9 % (NS 1000CC IV BAG) ml 10/03/2017 10/18/2017 CONTINUOUSEVERY 0 Hour NORMAL SALINE 50CC IV BAG INJ (NS 50CC MINI-BAG) ml 10/03/2017 10/03/2017 ONCE&1127 WARFARIN TAB 5 MG (COUMADIN) MG 03/201810/09/2017 QPM&1800 Problems Date Dx Coded Attending Type Code [...] PAIN IN LIMB 06/03/2008 CALVIN SCHERER DO K 782.3 EDEMA 06/03/2008 UTE PUTNAM APRN R 729.5 PAIN IN LIMB 06/03/2008 UTE PUTNAM APRN R 782.3 EDEMA 06/03/2008 TRE SULTANA APRN 729.5 [...] 08/29/2009 Ot V58.61 08/29/2009 Ot V58.83 10/17/2009 CALVIN SCHERER DO K 787.01 NAUSEA WITH VOMITING 10/17/2009 HERBERT SCHERER DOA K 787.91 DIARRHEA 10/17/2009 ROSALIE PUTNAM APRNINA R 787.01 NAUSEA WITH VOMITING 10/17/2009 UTE [...] APRN R 462 PHARYNGITIS ACUTE 12/16/2009 TRE SULATNA APRN 462 PHARYNGITIS ACUTE 01/10/2010 Ot V12.51 01/10/2010 Ot V58.61 01/10/2010 Ot V58.83 04/18/2010 Ot V12.51 04/18/2010 Ot V58.61 04/18/2010 Ot V58.83 05/10/2010 CALVIN SCHERER DO K 401.1 HYPERTENSION, BENIGN ESSENTIAL 05/10/2010 UTE PUTNAM APRN R 401.1 HYPERTENSION, BENIGN ESSENTIAL 05/10/2010 TRE SULTANA APRN 401.1 HYPERTENSION, BENIGN ESSENTIAL 05/16/2010 CALVIN SCHERER DO K 272.2 HYPERLIPIDEMIA, MIXED 05/16/2010 CALVIN SCHERER DO K 786.2 COUGH 05/16/2010 UTE PUTNAM APRN [...] V58.83 ENCOUNTER FOR THERAPEUTIC DRUG MONITORIN 04/06/2011 NIESHA BECK CALVIN K 724.2 BACK PAIN, LOWER 04/06/2011 [...] INFARCT 09/24/2012 Ot 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[place] CORON 09/24/2012 Ot 786.50 CHEST PAIN NOS [...] MENDOZA Gruber Ot 719.47 JOINT PAIN-ANKLE 01/09/2013 MENDOZA CRAWFORD MD Ot 845.00 SPRAIN OF ANKLE NOS 01/09/2013 MENDOZA CRAWFORD MD Ot E000.8 OTHER EXTERNAL CAUSE STATUS 01/09/2013 MENDOZA CRAWFORD MD Ot E849.0 ACCIDENT IN HOME 01/09/2013 MENDOZA CRAWFORD MD Ot E888.9 FALL NOS 02/09/2013 Ot V12.51 HX-VENOUS THROMBOSIS EMBOLISM 02/09/2013 Ot V58.61 ANTICOAGULANTS,LT,CURRENT USE 02/09/2013 Ot V58.83 ENCOUNTER FOR THERAPEUTIC DRUG MONITORIN 07/08/2013 JEFFERY DE SOUZA MD Ot V12.51 HX-VENOUS THROMBOSIS EMBOLISM 07/08/2013 JEFFERY DE SOUZA MD, Ot V58.61 ANTICOAGULANTS,LT,CURRENT USE 07/08/2013 JEFFERY DE SOUZA MD Ot V58.83 ENCOUNTER FOR THERAPEUTIC DRUG MONITORIN 12/20/2013 JEFFERY DE SOUZA MD, Ot V12.51 HX-VENOUS THROMBOSIS EMBOLISM 12/20/2013 JEFFERY [...] JEFFERY DE SOUZA MD Ot V12.51 03/17/2015 JEFFERY DE SOUZA MD Ot V58.61 03/17/2015 JEFFERY DE SOUZA MD Ot V58.83 03/17/2015 Ot 272.4 03/17/2015 Ot [...] NOS 01/22/2016 Ot 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[place] CORON 01/22/2016 Ot 401.9 HYPERTENSION NOS 01/22/2016 Ot 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[place] CORON 01/22/2016 Ot 428.0 CONGESTIVE HEART FAILURE NOS 01/22/2016 Ot 719.40 JOINT PAIN- UNSPEC 01/22/2016 Ot 782.3 EDEMA 01/22/2016 Ot V58.61 ANTICOAGULANTS,LT,CURRENT USE 01/22/2016 VIANEY SWEET [employer] MAKER Ot F17.210 NICOTINE DEPENDENCE, CIGARETTES, UNCOMPL 01/22/2016 VIANEY SWEET [employer] MAKER Ot M25.511 PAIN IN RIGHT SHOULDER 02/24/2016 JEFFERY DE SOUZA MD Ot I82.403 ACUTE EMBOLISM AND THOMBOS UNSP DEEP VEI 02/24/2016 JEFFERY DE SOUZA MD Ot Z79.01 FDC (CURRENT) USE OF ANTICOAGULANT 04/09/2016 JEFFERY DE SOUZA MD Ot I82.403 ACUTE EMBOLISM AND THOMBOS UNSP DEEP VEI 04/09/2016 JEFFERY DE SOUZA MD Ot Z79.01 MANAGER EQUIPMENT (CURRENT) USE OF ANTICOAGULANT 05/22/2016 JEFFERY DE SOUZA MD Ot I82.403 ACUTE EMBOLISM AND THOMBOS UNSP DEEP VEI 05/22/2016 JEFFERY DE SOUZA MD Ot Z79.01 MANAGER EQUIPMENT (CURRENT) USE OF ANTICOAGULANT 06/01/2016 Ot 414.00 CORON ATHEROSCLER NOS TYPE VESSEL, NATIV 06/01/2016 Ot 786.50 CHEST PAIN NOS 06/01/2016 Ot 397.0 TRICUSPID VALVE DISEASE 06/01/2016 Ot 414.00 CORON ATHEROSCLER NOS TYPE VESSEL, NATIV 06/01/2016 Ot 424.0 MITRAL VALVE DISORDER 06/01/2016 Ot 786.50 CHEST PAIN NOS 06/01/2016 Ot 272.4 HYPERLIPIDEMIA NEC/NOS 06/01/2016 Ot 401.9 HYPERTENSION NOS 06/01/2016 Ot 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[place] CORON 06/01/2016 Ot 401.9 HYPERTENSION NOS 06/01/2016 Ot 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[place] CORON 06/01/2016 Ot 428.0 CONGESTIVE HEART FAILURE NOS 06/01/2016 Ot 719.40 JOINT PAIN- UNSPEC 06/01/2016 Ot 782.3 EDEMA 06/01/2016 Ot V58.61 ANTICOAGULANTS,LT,CURRENT USE 06/04/2016 JEFFERY DE SOUZA MD Ot I82.403 ACUTE EMBOLISM AND THOMBOS UNSP DEEP VEI 06/04/2016 JEFFERY DE SOUZA MD Ot Z79.01 FDC (CURRENT) USE OF ANTICOAGULANT 07/16/2016 JEFFERY DE SOUZA MD Ot I82.403 ACUTE EMBOLISM AND THOMBOS UNSP DEEP VEI 07/16/2016 JEFFERY DE SOUZA MD Ot Z79.01 FDC (CURRENT) USE OF ANTICOAGULANT 07/26/2016 Ot 414.00 CORON ATHEROSCLER NOS TYPE VESSEL, NATIV 07/26/2016 Ot 786.50 CHEST PAIN NOS 07/26/2016 Ot 397.0 TRICUSPID VALVE DISEASE 07/26/2016 Ot 414.00 CORON ATHEROSCLER NOS TYPE VESSEL, NATIV 07/26/2016 Ot 424.0 MITRAL VALVE DISORDER 07/26/2016 Ot 786.50 CHEST PAIN NOS 07/26/2016 Ot 272.4 HYPERLIPIDEMIA NEC/NOS 07/26/2016 Ot 401.9 HYPERTENSION NOS 07/26/2016 Ot 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[place] CORON 07/26/2016 Ot 401.9 HYPERTENSION NOS 07/26/2016 Ot 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[place] CORON 07/26/2016 Ot 428.0 CONGESTIVE HEART FAILURE NOS 07/26/2016 Ot 719.40 JOINT PAIN- UNSPEC 07/26/2016 Ot 782.3 EDEMA 07/26/2016 Ot V58.61 ANTICOAGULANTS,LT,CURRENT USE 07/26/2016 JEFFERY DE SOUZA MD Ot I82.403 ACUTE EMBOLISM AND THOMBOS UNSP DEEP VEI 07/26/2016 JEFFERY DE SOUZA MD Ot Z79.01 MANAGER EQUIPMENT (CURRENT) USE OF ANTICOAGULANT 07/27/2016 JEFFERY DE SOUZA MD Ot I11.0 HYPERTENSIVE HEART DISEASE WITH HEART FA 07/27/2016 JEFFERY DE SOUZA MD Ot I25.10 ATHSCL HEART DISEASE OF [place] CORONARY 07/27/2016 JEFFERY DE SOUZA MD Ot [...] NOS 08/06/2016 Ot 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[place] CORON 08/06/2016 Ot 401.9 HYPERTENSION NOS 08/06/2016 Ot 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[place] CORON 08/06/2016 Ot 428.0 CONGESTIVE HEART FAILURE NOS 08/06/2016 Ot 719.40 JOINT PAIN- UNSPEC 08/06/2016 Ot 782.3 EDEMA 08/06/2016 Ot V58.61 ANTICOAGULANTS,LT,CURRENT USE 08/06/2016 JEFFERY DE SOUZA MD Ot I82.403 ACUTE EMBOLISM AND THOMBOS UNSP DEEP VEI 08/06/2016 JEFFERY DE SOUZA MD Ot Z79.01 FDC (CURRENT) USE OF ANTICOAGULANT 08/06/2016 JEFFERY DE SOUZA MD Ot I11.0 HYPERTENSIVE HEART DISEASE WITH HEART FA 08/06/2016 JEFFERY DE SOUZA MD Ot I25.10 ATHSCL HEART DISEASE OF [place] CORONARY 08/06/2016 JEFFERY DE SOUZA MD Ot I26.99 OTHER PULMONARY EMBOLISM WITHOUT ACUTE C 08/06/2016 JEFFERY DE SOUZA MD Ot I50.9 HEART FAILURE, UNSPECIFIED 08/06/2016 JEFFERY DE SOUZA MD Ot I82.409 ACUTE EMBOLISM AND THOMBOS UNSP DEEP VN 08/06/2016 JEFFERY DE SOUZA MD Ot R07.9 CHEST PAIN, UNSPECIFIED 08/07/2016 JEFFERY DE SOUZA MD Ot I25.10 ATHSCL HEART DISEASE OF [place] CORONARY 08/07/2016 JEFFERY DE SOUZA MD Ot I50.9 HEART FAILURE, UNSPECIFIED 08/07/2016 JEFFERY DE SOUZA MD Ot R07.9 CHEST PAIN, UNSPECIFIED 08/07/2016 JEFFERY DE SOUZA MD Ot I25.10 ATHSCL HEART DISEASE OF [place] CORONARY 08/07/2016 JEFFERY DE SOUZA MD Ot [...] NOS 08/08/2016 Ot 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[place] CORON 08/08/2016 Ot 401.9 HYPERTENSION NOS 08/08/2016 Ot 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[place] CORON 08/08/2016 Ot 428.0 CONGESTIVE HEART FAILURE NOS 08/08/2016 Ot 719.40 JOINT PAIN- UNSPEC 08/08/2016 Ot 782.3 EDEMA 08/08/2016 Ot V58.61 ANTICOAGULANTS,LT,CURRENT USE 08/08/2016 JEFFERY DE SOUZA MD Ot I82.403 ACUTE EMBOLISM AND THOMBOS UNSP DEEP VEI 08/08/2016 JEFFERY DE SOUZA MD Ot Z79.01 FDC (CURRENT) USE OF ANTICOAGULANT 08/08/2016 JEFFERY DE SOUZA MD Ot I11.0 HYPERTENSIVE HEART DISEASE WITH HEART FA 08/08/2016 JEFFERY DE SOUZA MD Ot I25.10 ATHSCL HEART DISEASE OF [place] CORONARY 08/08/2016 JEFFERY DE SOUZA MD Ot I26.99 OTHER PULMONARY EMBOLISM WITHOUT ACUTE C 08/08/2016 JEFFERY DE SOUZA MD Ot I50.9 HEART FAILURE, UNSPECIFIED 08/08/2016 JEFFERY DE SOUZA MD Ot I82.409 ACUTE EMBOLISM AND THOMBOS UNSP DEEP VN 08/08/2016 JEFFERY DE SOUZA MD Ot R07.9 CHEST PAIN, UNSPECIFIED 08/08/2016 JEFFERY DE SOUZA MD Ot I25.10 ATHSCL HEART DISEASE OF [place] CORONARY 08/08/2016 JEFFERY DE SOUZA MD Ot I50.9 HEART FAILURE, UNSPECIFIED 08/08/2016 JEFFERY DE SOUZA MD Ot R07.9 CHEST PAIN, UNSPECIFIED 08/08/2016 JEFFERY DE SOUZA MD Ot I11.0 HYPERTENSIVE HEART DISEASE WITH HEART FA 08/08/2016 JEFFERY DE SOUZA MD Ot I25.10 ATHSCL HEART DISEASE OF [place] CORONARY 08/08/2016 JEFFERY DE SOUZA MD Ot [...] MD Ot I25.10 ATHSCL HEART DISEASE OF [place] CORONARY 08/08/2016 JEFFERY DE SOUZA MD Ot R07.89 OTHER CHEST PAIN 08/08/2016 JEFFERY DE SOUZA MD Ot R94.39 ABNORMAL RESULT OF OTHER CARDIOVASCULAR 08/08/2016 JEFFERY DE SOUZA MD Ot Z79.01 FDC (CURRENT) USE OF ANTICOAGULANT 08/08/2016 JEFFERY DE SOUZA MD Ot Z79.899 OTHER MANAGER EQUIPMENT (CURRENT) DRUG THERAPY 08/08/2016 JEFFERY DE SOUZA MD Ot Z86.718 PERSONAL HISTORY OF OTHER VENOUS THROMBO 08/08/2016 JEFFERY DE SOUZA MD Ot Z95.5 PRESENCE OF CORONARY ANGIOPLASTY IMPLANT 08/12/2016 JEFFERY DE SOUZA MD Ot I25.10 ATHSCL HEART DISEASE OF [place] CORONARY 08/12/2016 JEFFERY DE SOUZA MD Ot I50.9 HEART FAILURE, UNSPECIFIED 08/12/2016 JEFFERY DE SOUZA MD Ot R07.9 CHEST PAIN, UNSPECIFIED 08/22/2016 JEFFERY DE SOUZA MD Ot I25.10 ATHSCL HEART DISEASE OF [place] CORONARY 08/22/2016 JEFFERY DE SOUZA MD Ot I50.9 HEART FAILURE, UNSPECIFIED 08/22/2016 JEFFERY DE SOUZA MD Ot R07.9 CHEST PAIN, UNSPECIFIED 08/30/2016 JEFFERY DE SOUZA MD Ot I82.403 ACUTE EMBOLISM AND THOMBOS UNSP DEEP VEI 08/30/2016 JEFFERY DE SOUZA MD Ot Z79.01 FDC (CURRENT) USE OF ANTICOAGULANT 08/31/2016 JEFFERY DE SOUZA MD Ot I82.403 ACUTE EMBOLISM AND THOMBOS UNSP DEEP VEI 08/31/2016 JEFFERY DE SOUZA MD Ot Z79.01 MANAGER EQUIPMENT (CURRENT) USE OF ANTICOAGULANT 09/13/2016 JEFFERY DE SOUZA MD Ot I82.403 ACUTE EMBOLISM AND THOMBOS UNSP DEEP VEI 09/13/2016 JEFFERY DE SOUZA MD Ot Z79.01 FDC (CURRENT) USE OF ANTICOAGULANT 09/13/2016 JEFFERY DE SOUZA MD Ot I82.403 ACUTE EMBOLISM AND THOMBOS UNSP DEEP VEI 09/13/2016 JEFFERY DE SOUZA MD Ot Z79.01 MANAGER EQUIPMENT (CURRENT) USE OF ANTICOAGULANT 09/14/2016 JEFFERY DE SOUZA MD Ot I82.403 ACUTE EMBOLISM AND THOMBOS UNSP DEEP VEI 09/14/2016 JEFFERY DE SOUZA MD Ot Z79.01 MANAGER EQUIPMENT (CURRENT) USE OF ANTICOAGULANT 10/10/2016 JEFFERY DE SOUZA MD Ot I82.403 ACUTE EMBOLISM AND THOMBOS UNSP DEEP VEI 10/10/2016 JEFFERY DE SOUZA MD Ot Z79.01 MANAGER EQUIPMENT (CURRENT) USE OF ANTICOAGULANT 11/09/2016 JEFFERY DE SOUZA MD Ot I82.403 ACUTE EMBOLISM AND THOMBOS UNSP DEEP VEI 11/09/2016 JEFFERY DE SOUZA MD Ot Z79.01 FDC (CURRENT) USE OF ANTICOAGULANT 12/11/2016 JEFFERY DE SOUZA MD Ot I82.403 ACUTE EMBOLISM AND THOMBOS UNSP DEEP VEI 12/11/2016 JEFFERY DE SOUZA MD Ot Z79.01 MANAGER EQUIPMENT (CURRENT) USE OF ANTICOAGULANT 12/12/2016 JEFFERY DE SOUZA MD Ot I82.403 ACUTE EMBOLISM AND THOMBOS UNSP DEEP VEI 12/12/2016 JEFFERY DE SOUZA MD Ot Z79.01 FDC (CURRENT) USE OF ANTICOAGULANT 01/09/2017 Ot 414.00 CORON ATHEROSCLER NOS TYPE VESSEL, NATIV 01/09/2017 Ot 786.50 CHEST PAIN NOS 01/09/2017 Ot 397.0 TRICUSPID VALVE DISEASE 01/09/2017 Ot 414.00 CORON ATHEROSCLER NOS TYPE VESSEL, NATIV 01/09/2017 Ot 424.0 MITRAL VALVE DISORDER 01/09/2017 Ot 786.50 CHEST PAIN NOS 01/09/2017 Ot 272.4 HYPERLIPIDEMIA NEC/NOS 01/09/2017 Ot 401.9 HYPERTENSION NOS 01/09/2017 Ot 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[place] CORON 01/09/2017 Ot 401.9 HYPERTENSION NOS 01/09/2017 Ot 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[place] CORON 01/09/2017 Ot 428.0 CONGESTIVE HEART FAILURE NOS 01/09/2017 Ot 719.40 JOINT PAIN- UNSPEC 01/09/2017 Ot 782.3 EDEMA 01/09/2017 Ot V58.61 ANTICOAGULANTS,LT,CURRENT USE 01/09/2017 JEFFERY DE SOUZA MD Ot I11.0 HYPERTENSIVE HEART DISEASE WITH HEART FA 01/09/2017 JEFFERY DE SOUZA MD Ot I25.10 ATHSCL HEART DISEASE OF [place] CORONARY 01/09/2017 JEFFERY DE SOUZA MD Ot I26.99 OTHER PULMONARY EMBOLISM WITHOUT ACUTE C 01/09/2017 JEFFERY DE SOUZA MD Ot I50.9 HEART FAILURE, UNSPECIFIED 01/09/2017 JEFFERY DE SOUZA MD Ot I82.409 ACUTE EMBOLISM AND THOMBOS UNSP DEEP VN 01/09/2017 JEFFERY DE SOUZA MD Ot R07.9 CHEST PAIN, UNSPECIFIED 01/09/2017 JEFFERY DE SOUZA MD Ot I25.10 ATHSCL HEART DISEASE OF [place] CORONARY 01/09/2017 JEFFREY DE SOUZA MD Ot I50.9 HEART FAILURE, UNSPECIFIED 01/09/2017 JEFFERY DE SOUZA MD Ot R07.9 CHEST PAIN, UNSPECIFIED 01/09/2017 ROCHELLE OLIVER Ot F17.210 NICOTINE DEPENDENCE, CIGARETTES, UNCOMPL 01/09/2017 ROCHELLE OLIVER Ot R10.10 UPPER ABDOMINAL PAIN, UNSPECIFIED 01/09/2017 ROCHELLE OLIVER Ot R10.13 EPIGASTRIC PAIN 01/09/2017 ROCHELLE OLIVER Ot Z79.01 MANAGER EQUIPMENT (CURRENT) USE OF ANTICOAGULANT 01/09/2017 ROCHELLE OLIVER Ot Z79.82 MANAGER EQUIPMENT (CURRENT) USE OF ASPIRIN 01/09/2017 ROCHELLE OLIVER Ot Z79.899 OTHER FDC (CURRENT) DRUG THERAPY 01/09/2017 ROCHELLE OLIVER Ot Z95.5 PRESENCE OF CORONARY ANGIOPLASTY IMPLANT 01/11/2017 ROCHELLE OLIVER Ot F17.210 NICOTINE DEPENDENCE, CIGARETTES, UNCOMPL 01/11/2017 ROCHELLE OLIVER Ot R10.10 UPPER ABDOMINAL PAIN, UNSPECIFIED 01/11/2017 ROCHELLE OLIVRE Ot R10.13 EPIGASTRIC PAIN 01/11/2017 ROCHELLE OLIVER Ot Z79.01 MANAGER EQUIPMENT (CURRENT) USE OF ANTICOAGULANT 01/11/2017 ROCHELLE OLIVER Ot Z79.82 FDC (CURRENT) USE OF ASPIRIN 01/11/2017 ROCHELLE OLIVER Ot Z79.899 OTHER FDC (CURRENT) DRUG THERAPY 01/11/2017 ROCHELLE OLIVER Ot Z95.5 PRESENCE OF CORONARY ANGIOPLASTY IMPLANT 01/29/2017 JEFFERY DE SOUZA MD Ot I82.403 ACUTE EMBOLISM AND THOMBOS UNSP DEEP VEI 01/29/2017 JEFFERY DE SOUZA MD Ot Z79.01 FDC (CURRENT) USE OF ANTICOAGULANT 01/31/2017 Ot 414.00 CORON ATHEROSCLER NOS TYPE VESSEL, NATIV 01/31/2017 Ot 786.50 CHEST PAIN NOS 01/31/2017 Ot 397.0 TRICUSPID VALVE DISEASE 01/31/2017 Ot 414.00 CORON ATHEROSCLER NOS TYPE VESSEL, NATIV 01/31/2017 Ot 424.0 MITRAL VALVE DISORDER 01/31/2017 Ot 786.50 CHEST PAIN NOS 01/31/2017 Ot 272.4 HYPERLIPIDEMIA NEC/NOS 01/31/2017 Ot 401.9 HYPERTENSION NOS 01/31/2017 Ot 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[place] CORON 01/31/2017 Ot 401.9 HYPERTENSION NOS 01/31/2017 Ot 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[place] CORON 01/31/2017 Ot 428.0 CONGESTIVE HEART FAILURE NOS 01/31/2017 Ot 719.40 JOINT PAIN- UNSPEC 01/31/2017 Ot 782.3 EDEMA 01/31/2017 Ot V58.61 ANTICOAGULANTS,LT,CURRENT USE 01/31/2017 JEFFERY DE SOUZA MD Ot I11.0 HYPERTENSIVE HEART DISEASE WITH HEART FA 01/31/2017 JEFFERY DE SOUZA MD Ot I25.10 ATHSCL HEART DISEASE OF [place] CORONARY 01/31/2017 JEFFERY DE SOUZA MD Ot I26.99 OTHER PULMONARY EMBOLISM WITHOUT ACUTE C 01/31/2017 JEFFERY DE SOUZA MD Ot I50.9 HEART FAILURE, UNSPECIFIED 01/31/2017 JEFFERY DE SOUZA MD Ot R07.9 CHEST PAIN, UNSPECIFIED 01/31/2017 JEFFERY DE SOUZA MD Ot I25.10 ATHSCL HEART DISEASE OF [place] CORONARY 01/31/2017 JEFFERY DE SOUZA MD Ot I50.9 HEART FAILURE, UNSPECIFIED 01/31/2017 JEFFERY DE SOUZA MD Ot R07.9 CHEST PAIN, UNSPECIFIED 03/08/2017 JEFFERY DE SOUZA MD Ot I82.403 ACUTE EMBOLISM AND THOMBOS UNSP DEEP VEI 03/08/2017 JEFFERY DE SOUZA MD Ot Z79.01 FDC (CURRENT) USE OF ANTICOAGULANT 04/02/2017 JEFFERY DE SOUZA MD Ot I82.403 ACUTE EMBOLISM AND THOMBOS UNSP DEEP VEI 04/02/2017 JEFFERY DE SOUZA MD Ot Z79.01 FDC (CURRENT) USE OF ANTICOAGULANT 04/03/2017 JEFFERY DE SOUZA MD Ot I82.403 ACUTE EMBOLISM AND THOMBOS UNSP DEEP VEI 04/03/2017 JEFFERY DE SOUZA MD Ot Z79.01 FDC (CURRENT) USE OF ANTICOAGULANT 04/10/2017 JEFFERY DE [...] RIGHT ARM 04/13/2017 ROCHELLE OLIVER Ot Z79.01 FDC (CURRENT) USE OF ANTICOAGULANT 04/13/2017 ROCHELLE OLIVER Ot Z79.82 MANAGER EQUIPMENT (CURRENT) USE OF ASPIRIN 04/13/2017 ROCHELLE OLIVER [...] LEVEL Sat05/10/2017 JEFFERY DE SOUZA MD Ot I26.99 OTHER PULMONARY EMBOLISM WITHOUT ACUTE C 05/10/2017 JEFFERY DE SOUZA MD Ot Z51.81 ENCOUNTER FOR THERAPEUTIC DRUG LEVEL Sat05/10/2017 JEFFERY DE SOUZA MD Ot Z79.899 OTHER FDC (CURRENT) DRUG THERAPY 05/25/2017 JEFFERY DE SOUZA MD Ot I26.99 OTHER PULMONARY EMBOLISM WITHOUT ACUTE C 05/25/2017 JEFFERY DE SOUZA MD Ot Z51.81 ENCOUNTER FOR THERAPEUTIC DRUG LEVEL MON 05/25/2017 JEFFERY DE SOUZA MD Ot Z79.899 OTHER MANAGER EQUIPMENT (CURRENT) DRUG THERAPY 05/31/2017 JEFFERY DE SOUZA MD Ot I26.99 OTHER PULMONARY EMBOLISM WITHOUT ACUTE C 05/31/2017 JEFFERY DE SOUZA MD Ot Z51.81 ENCOUNTER FOR THERAPEUTIC DRUG LEVEL MON 05/31/2017 JEFFERY DE SOUZA MD Ot Z79.899 OTHER FDC (CURRENT) DRUG THERAPY 07/11/2017 SONIYA JAMES DO Ot D68.59 OTHER PRIMARY THROMBOPHILIA 07/11/2017 SONIYA JAMES DO Ot E78.1 PURE HYPERGLYCERIDEMIA 07/11/2017 MAGALYS JAMES DOI Ot E78.5 HYPERLIPIDEMIA, UNSPECIFIED 07/11/2017 ERIKA BECK SONIYA Ot F17.210 NICOTINE DEPENDENCE, CIGARETTES, UNCOMPL 07/11/2017 ERIKA BECK SONIYA Ot I10 ESSENTIAL (PRIMARY) HYPERTENSION 07/11/2017 MAGALYS JAMES DOI Ot I21.4 NON-ST ELEVATION (NSTEMI) MYOCARDIAL INF 07/11/2017 MAGALYS JAMES DOI Ot I25.10 ATHSCL HEART DISEASE OF [place] CORONARY 07/11/2017 MAGALYS JAMES DOI Ot 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 07/11/2017 MAGALYS JAMES DOI Ot I50.20 UNSPECIFIED SYSTOLIC (CONGESTIVE) HEART 07/11/2017 SONIYA JAMES DO Ot K21.9 GASTRO-ESOPHAGEAL REFLUX DISEASE WITHOUT 07/11/2017 MAGALYS JAMES DOI Ot R06.2 WHEEZING 07/11/2017 SONIYA JAMES DO Ot Z79.01 FDC (CURRENT) USE OF ANTICOAGULANT 07/11/2017 SONIYA JAMES DO Ot Z82.49 FAMILY HX OF ISCHEM HEART DIS AND OTH DI 07/11/2017 SONIYA JAMES DO Ot Z95.5 PRESENCE OF CORONARY ANGIOPLASTY IMPLANT 07/15/2017 SONIYA JAMES DO Ot D68.59 OTHER PRIMARY THROMBOPHILIA 07/15/2017 SONIYA JAMES DO Ot E78.1 PURE HYPERGLYCERIDEMIA 07/15/2017 MAGALYS JAMES DOI Ot E78.5 HYPERLIPIDEMIA, UNSPECIFIED 07/15/2017 MAGALYS JAMES DOI Ot F17.210 NICOTINE DEPENDENCE, CIGARETTES, UNCOMPL 07/15/2017 MAGALYS JAMES DOI Ot I10 ESSENTIAL (PRIMARY) HYPERTENSION 07/15/2017 JAMES DO, SONIYA Ot I21.4 NON-ST ELEVATION (NSTEMI) MYOCARDIAL INF 07/15/2017 ERIKA BECK SONIYA Ot I25.10 ATHSCL HEART DISEASE OF [place] CORONARY 07/15/2017 ERIKA BECK SONIYA Ot 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 07/15/2017 ERIKA BCEK SONIYA Ot I50.20 UNSPECIFIED SYSTOLIC (CONGESTIVE) HEART 07/15/2017 ERIKA BECK SONIYA Ot K21.9 GASTRO-ESOPHAGEAL REFLUX DISEASE WITHOUT 07/15/2017 ERIKA BECK SONIYA Ot R06.2 WHEEZING 07/15/2017 ERIKA BECK SONIYA Ot Z79.01 FDC (CURRENT) USE OF ANTICOAGULANT 07/15/2017 ERIKA BECK SONIYA Ot Z82.49 FAMILY HX OF ISCHEM HEART DIS AND OTH DI 07/15/2017 ERIKA BECK SONIYA Ot Z95.5 PRESENCE OF CORONARY ANGIOPLASTY IMPLANT 07/17/2017 ERIKA BECK SONIYA Ot D68.59 OTHER PRIMARY THROMBOPHILIA 07/17/2017 ERIKA BECK SONIYA Ot E78.1 PURE HYPERGLYCERIDEMIA 07/17/2017 ERIKA BECK SONIYA Ot E78.5 HYPERLIPIDEMIA, UNSPECIFIED 07/17/2017 ERIKA BECK SONIYA Ot F17.210 NICOTINE DEPENDENCE, CIGARETTES, UNCOMPL 07/17/2017 ERIKA BECK SONIYA Ot I10 ESSENTIAL (PRIMARY) HYPERTENSION 07/17/2017 ERIKA BECK SONIYA Ot I21.4 NON-ST ELEVATION (NSTEMI) MYOCARDIAL INF 07/17/2017 ERIKA BECK SONIYA Ot I25.10 ATHSCL HEART DISEASE OF [place] CORONARY 07/17/2017 ERIKA BECK SONIYA Ot 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 07/17/2017 ERIKA BECK SONIYA Ot I50.20 UNSPECIFIED SYSTOLIC (CONGESTIVE) HEART 07/17/2017 ERIKA BECK SONIYA Ot K21.9 GASTRO-ESOPHAGEAL REFLUX DISEASE WITHOUT 07/17/2017 ERIKA BECK SONIYA Ot R06.2 WHEEZING 07/17/2017 ERIKA BECK SONIYA Ot Z79.01 MANAGER EQUIPMENT (CURRENT) USE OF ANTICOAGULANT 07/17/2017 ERIKA BECK SONIYA Ot Z82.49 FAMILY HX OF ISCHEM HEART DIS AND OTH DI 07/17/2017 ERIKA BECK SONIYA Ot Z95.5 PRESENCE OF CORONARY ANGIOPLASTY IMPLANT [...] NOS 08/02/2017 Ot 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[place] CORON 08/02/2017 Ot 401.9 HYPERTENSION NOS 08/02/2017 Ot 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[place] CORON 08/02/2017 Ot 428.0 CONGESTIVE HEART FAILURE NOS 08/02/2017 Ot 719.40 JOINT PAIN- UNSPEC 08/02/2017 Ot 782.3 EDEMA 08/02/2017 Ot V58.61 ANTICOAGULANTS,LT,CURRENT USE 08/02/2017 JEFFERY DE SOUZA MD Ot I11.0 HYPERTENSIVE HEART DISEASE WITH HEART FA 08/02/2017 JEFFERY DE SOUZA MD Ot I25.10 ATHSCL HEART DISEASE OF [place] CORONARY 08/02/2017 JEFFERY DE SOUZA MD Ot I26.99 OTHER PULMONARY EMBOLISM WITHOUT ACUTE C 08/02/2017 JEFFERY DE SOUZA MD Ot I50.9 HEART FAILURE, UNSPECIFIED 08/02/2017 JEFFERY DE SOUZA MD Ot R07.9 CHEST PAIN, UNSPECIFIED 08/02/2017 JEFFERY DE SOUZA MD Ot I25.10 ATHSCL HEART DISEASE OF [place] CORONARY 08/02/2017 JEFFERY DE SOUZA MD Ot I50.9 HEART FAILURE, UNSPECIFIED 08/02/2017 JEFFERY DE SOUZA MD Ot R07.9 CHEST PAIN, UNSPECIFIED 08/02/2017 JEFFERY DE SOUZA MD Ot I82.403 ACUTE EMBOLISM AND THOMBOS UNSP DEEP VEI 08/02/2017 JEFFERY DE SOUZA MD Ot Z79.01 MANAGER EQUIPMENT (CURRENT) USE OF ANTICOAGULANT 08/02/2017 JEFFERY DE [...] JEFFERY DE SOUZA MD Ot Z79.899 OTHER FDC (CURRENT) DRUG THERAPY 08/02/2017 ROCHELLE OLIVER Ot E78.00 PURE HYPERCHOLESTEROLEMIA, UNSPECIFIED 08/02/2017 ROCHELLE OLIVER Ot I10 ESSENTIAL (PRIMARY) HYPERTENSION 08/02/2017 ROCHELLE OILVER Ot I25.2 OLD MYOCARDIAL INFARCTION 08/02/2017 ROCHELLE OLIVER Ot K21.9 GASTRO-ESOPHAGEAL REFLUX DISEASE WITHOUT 08/02/2017 ROCHELLE OLIVER Ot R22.2 LOCALIZED SWELLING, MASS AND LUMP, TRUNK 08/02/2017 ROCHELEL OLIVER Ot S20.212A CONTUSION OF LEFT FRONT WALL OF THORAX, 08/02/2017 ROCHLELE OLIVER Ot X58.XXXA EXPOSURE TO OTHER SPECIFIED FACTORS, INI 08/02/2017 ROCHELLE OLIVER Ot Z79.01 FDC (CURRENT) USE OF ANTICOAGULANT 08/02/2017 ROCHELLE OLIVER Ot Z79.82 FDC (CURRENT) USE OF ASPIRIN 08/02/2017 ROCHELLE OLIVER Ot Z82.49 FAMILY HX OF ISCHEM HEART DIS AND OTH DI 08/02/2017 ROCHELLE OLIVER Ot Z95.5 PRESENCE OF CORONARY ANGIOPLASTY IMPLANT 08/06/2017 JEFFERY DE SOUZA MD Ot I26.99 OTHER PULMONARY EMBOLISM WITHOUT ACUTE C 08/06/2017 JEFFERY DE SOUZA MD Ot Z79.01 MANAGER EQUIPMENT (CURRENT) USE OF ANTICOAGULANT 08/06/2017 JEFFERY DE [...] NOS 08/09/2017 Ot 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[place] CORON 08/09/2017 Ot 401.9 HYPERTENSION NOS 08/09/2017 Ot 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[place] CORON 08/09/2017 Ot 428.0 CONGESTIVE HEART FAILURE NOS 08/09/2017 Ot 719.40 JOINT PAIN- UNSPEC 08/09/2017 Ot 782.3 EDEMA 08/09/2017 Ot V58.61 ANTICOAGULANTS,LT,CURRENT USE 08/09/2017 JEFFERY DE SOUZA MD Ot I11.0 HYPERTENSIVE HEART DISEASE WITH HEART FA 08/09/2017 JEFFERY DE SOUZA MD Ot I25.10 ATHSCL HEART DISEASE OF [place] CORONARY 08/09/2017 JEFFERY DE SOUZA MD Ot I26.99 OTHER PULMONARY EMBOLISM WITHOUT ACUTE C 08/09/2017 JEFFERY DE SOUZA MD Ot I50.9 HEART FAILURE, UNSPECIFIED 08/09/2017 JEFFERY DE SOUZA MD Ot R07.9 CHEST PAIN, UNSPECIFIED 08/09/2017 JEFFERY DE SOUZA MD Ot I25.10 ATHSCL HEART DISEASE OF [place] CORONARY 08/09/2017 JEFFERY DE SOUZA MD Ot I50.9 HEART FAILURE, UNSPECIFIED 08/09/2017 JEFFERY DE SOUZA MD Ot R07.9 CHEST PAIN, UNSPECIFIED 08/09/2017 JEFFERY DE SOUZA MD Ot I82.403 ACUTE EMBOLISM AND THOMBOS UNSP DEEP VEI 08/09/2017 JEFFERY DE SOUZA MD Ot Z79.01 FDC (CURRENT) USE OF ANTICOAGULANT 08/09/2017 JEFFERY DE SOUZA MD Ot I26.99 OTHER PULMONARY EMBOLISM WITHOUT ACUTE C 08/09/2017 JEFFERY DE SOUZA MD Ot Z51.81 ENCOUNTER FOR THERAPEUTIC DRUG LEVEL MON 08/09/2017 JEFFERY DE SOUZA MD Ot I26.99 OTHER PULMONARY EMBOLISM WITHOUT ACUTE C 08/09/2017 JEFFERY DE SOUZA MD Ot Z79.01 FDC (CURRENT) USE OF ANTICOAGULANT 08/09/2017 JEFFERY DE SOUZA MD Ot I50.9 HEART FAILURE, UNSPECIFIED 08/14/2017 JEFFERY DE SOUZA MD Ot I26.99 OTHER PULMONARY EMBOLISM WITHOUT ACUTE C 08/14/2017 JEFFERY DE SOUZA MD Ot Z79.01 FDC (CURRENT) USE OF ANTICOAGULANT 08/22/2017 FREDRICK MCCAULEY MD Ot I25.119 ATHSCL HEART DISEASE OF [place] COR ART W 08/22/2017 GARRICK ENRIQUE, FREDRICK Londono Ot Z01.812 ENCOUNTER FOR PREPROCEDURAL LABORATORY E 08/24/2017 JEFFERY DE SOUZA MD Ot I26.99 OTHER PULMONARY EMBOLISM WITHOUT ACUTE C 08/24/2017 JEFFERY DE SOUZA MD, Ot Z79.01 MANAGER EQUIPMENT (CURRENT) USE OF ANTICOAGULANT 08/30/2017 JEFFERY DE SOUZA MD, Ot I26.99 OTHER PULMONARY EMBOLISM WITHOUT ACUTE C 08/30/2017 JEFFERY DE SOUZA MD, Ot Z79.01 MANAGER EQUIPMENT (CURRENT) USE OF ANTICOAGULANT 09/02/2017 JEFFERY DE SOUZA MD, Ot I26.99 OTHER PULMONARY EMBOLISM WITHOUT ACUTE C 09/02/2017 JEFFERY DE SOUZA MD, Ot Z79.01 MANAGER EQUIPMENT (CURRENT) USE OF ANTICOAGULANT 09/06/2017 JEFFERY DE SOUZA MD, Ot I10 ESSENTIAL (PRIMARY) HYPERTENSION 09/06/2017 JEFFERY DE SOUZA MD, Ot I25.10 ATHSCL HEART DISEASE OF [place] CORONARY 09/06/2017 JEFFERY DE SOUZA MD Ot R06.00 DYSPNEA, UNSPECIFIED 09/06/2017 JEFFERY DE SOUZA MD Ot R07.89 OTHER CHEST PAIN 09/12/2017 JEFFERY DE SOUZA MD Ot I50.9 HEART FAILURE, UNSPECIFIED 09/15/2017 VIANEY SWEET APRN Ot E78.00 PURE HYPERCHOLESTEROLEMIA, UNSPECIFIED 09/15/2017 VIANEY SWEET APRN Ot I10 ESSENTIAL (PRIMARY) HYPERTENSION 09/15/2017 VIANEY SWEET APRN Ot I20.9 ANGINA PECTORIS, UNSPECIFIED 09/15/2017 VIANEY SWEET APRN Ot I25.2 OLD MYOCARDIAL INFARCTION 09/15/2017 VIANEY SWEET APRN Ot K21.9 GASTRO-ESOPHAGEAL REFLUX DISEASE WITHOUT 09/15/2017 VIANEY SWEET APRN Ot M10.9 GOUT, UNSPECIFIED 09/15/2017 VIANEY SWEET APRN Ot M79.672 PAIN IN LEFT FOOT 09/15/2017 VIANEY SWEET APRN Ot Z79.01 FDC (CURRENT) USE OF ANTICOAGULANT 09/15/2017 VIANEY SWEET APRN Ot Z79.02 MANAGER EQUIPMENT (CURRENT) USE OF ANTITHROMBOTI 09/15/2017 VIANEY SWEET APRN Ot Z79.82 FDC (CURRENT) USE OF ASPIRIN 09/15/2017 VIANEY SWEET APRN Ot Z82.49 FAMILY HX OF ISCHE[place] HEART DIS AND OTH DI 09/15/2017 VIANEY SWEET APRN Ot Z86.718 PERSONAL HISTORY OF OTHER VENOUS THROMBO 09/15/2017 VIANEY SWEET APRN Ot Z95.5 PRESENCE OF CORONARY ANGIOPLASTY IMPLANT 09/17/2017 VIANEY SWEET APRN Ot E78.00 PURE HYPERCHOLESTEROLEMIA, UNSPECIFIED 09/17/2017 VIANEY SWEET APRN Ot I10 ESSENTIAL (PRIMARY) HYPERTENSION 09/17/2017 VIANEY SWEET APRN Ot I20.9 ANGINA PECTORIS, UNSPECIFIED 09/17/2017 VIANEY SWEET APRN Ot I25.2 OLD MYOCARDIAL INFARCTION 09/17/2017 VIANEY SWEET APRN Ot K21.9 GASTRO-ESOPHAGEAL REFLUX DISEASE WITHOUT 09/17/2017 VIANYE SWEET APRN Ot M10.9 GOUT, UNSPECIFIED 09/17/2017 VIANEY SWEET APRN Ot M79.672 PAIN IN LEFT FOOT 09/17/2017 VIANEY SWEET APRN Ot Z79.01 FDC (CURRENT) USE OF ANTICOAGULANT 09/17/2017 VIANEY SWEET APRN Ot Z79.02 MANAGER EQUIPMENT (CURRENT) USE OF ANTITHROMBOTI 09/17/2017 VIANEY SWEET APRN Ot Z79.82 FDC (CURRENT) USE OF ASPIRIN 09/17/2017 VIANEY SWEET APRN Ot Z82.49 FAMILY HX OF I[place] HEART DIS AND OTH DI 09/17/2017 VIANEY SWEET APRN Ot Z86.718 PERSONAL HISTORY OF OTHER VENOUS THROMBO 09/17/2017 VIANEY SWEET APRN Ot Z95.5 PRESENCE OF CORONARY ANGIOPLASTY IMPLANT 09/18/2017 JEFFERY DE SOUZA MD Ot I10 ESSENTIAL (PRIMARY) HYPERTENSION 09/18/2017 JEFFERY DE SOUZA MD Ot I25.10 ATHSCL HEART DISEASE OF [place] CORONARY 09/18/2017 JEFFERY DE SOUZA MD Ot R06.00 DYSPNEA, UNSPECIFIED 09/18/2017 JEFFERY DE SOUZA MD Ot R07.89 OTHER CHEST PAIN 09/25/2017 TWAN ENRIQUE, FREDIRCK Faulkner Ot E78.00 PURE HYPERCHOLESTEROLEMIA, UNSPECIFIED 09/25/2017 TWAN ENRIQUE, FREDRICK Faulkner Ot E78.5 HYPERLIPIDEMIA, UNSPECIFIED 09/25/2017 TWAN ENRIQUE, FREDRICK Faulkner Ot I11.0 HYPERTENSIVE HEART DISEASE WITH HEART FA 09/25/2017 TWAN ENRIQUE, FREDRICK Faulkner Ot I25.10 ATHSCL HEART DISEASE OF [place] CORONARY 09/25/2017 TWAN ENRIQUE, FREDRICK Faulkner Ot I25.2 OLD MYOCARDIAL INFARCTION 09/25/2017 TWAN ENRIQUE, FREDRICK Faulkner Ot I50.9 HEART FAILURE, UNSPECIFIED 09/25/2017 TWAN ENRIQUE, FREDRICK Faulkner Ot K21.9 GASTRO-ESOPHAGEAL REFLUX DISEASE WITHOUT 09/25/2017 TWAN ENRIQUE, FREDRICK Faulkner Ot L03.116 CELLULITIS OF LEFT LOWER LIMB 09/25/2017 TWAN ENRIQUE, FREDRICK Faulkner Ot M10.9 GOUT, UNSPECIFIED 09/25/2017 TWAN ENRIQUE, FREDRICK Faulkner Ot Z86.718 PERSONAL HISTORY OF OTHER VENOUS THROMBO 09/25/2017 TWAN ENRIQUE, FREDRICK Faulkner Ot Z87.891 PERSONAL HISTORY OF NICOTINE DEPENDENCE 09/25/2017 TWAN ENRIQUE, FREDRICK Faulkner Ot Z95.5 PRESENCE OF CORONARY ANGIOPLASTY IMPLANT 10/03/2017 Brokob, Breanna W 238.71 ESSENTIAL THROMBOCYTHEMIA 10/03/2017 Brokob, Breanna A 682.6 CELLULITIS AND ABSCESS OF LEG, EXCEPT FOOT 10/03/2017 Supab Breanna W D47.3 ESSENTIAL (HEMORRHAGIC) THROMBOCYTHEMIA 10/03/2017 Brokob, Breanna A L03.116 CELLULITIS OF LEFT LOWER LIMB 10/04/2017 NOLVIA ENRIQUE, JEFFERY Gutierrez Ot M79.605 PAIN IN LEFT LEG 10/04/2017 Ot 414.00 CORON ATHEROSCLER NOS TYPE VESSEL, NATIV 10/04/2017 Ot 786.50 CHEST PAIN NOS 10/04/2017 Ot 397.0 TRICUSPID VALVE DISEASE 10/04/2017 Ot 414.00 CORON ATHEROSCLER NOS TYPE VESSEL, NATIV 10/04/2017 Ot 424.0 MITRAL VALVE DISORDER 10/04/2017 Ot 786.50 CHEST PAIN NOS 10/04/2017 Ot 272.4 HYPERLIPIDEMIA NEC/NOS 10/04/2017 Ot 401.9 HYPERTENSION NOS 10/04/2017 Ot 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[place] CORON 10/04/2017 Ot 401.9 HYPERTENSION NOS 10/04/2017 Ot 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[place] CORON 10/04/2017 Ot 428.0 CONGESTIVE HEART FAILURE NOS 10/04/2017 Ot 719.40 JOINT PAIN- UNSPEC 10/04/2017 Ot 782.3 EDEMA 10/04/2017 Ot V58.61 ANTICOAGULANTS,LT,CURRENT USE 10/04/2017 JEFFERY DE SOUZA MD Ot I11.0 HYPERTENSIVE HEART DISEASE WITH HEART FA 10/04/2017 JEFFERY DE SOUZA MD Ot I25.10 ATHSCL HEART DISEASE OF [place] CORONARY 10/04/2017 JEFFERY DE SOUZA MD Ot I26.99 OTHER PULMONARY EMBOLISM WITHOUT ACUTE C 10/04/2017 JEFFERY DE SOUZA MD Ot I50.9 HEART FAILURE, UNSPECIFIED 10/04/2017 JEFFERY DE SOUZA MD Ot R07.9 CHEST PAIN, UNSPECIFIED 10/04/2017 JEFFERY DE SOUZA MD Ot I25.10 ATHSCL HEART DISEASE OF [place] CORONARY 10/04/2017 JEFFERY DE SOUZA MD Ot I50.9 HEART FAILURE, UNSPECIFIED 10/04/2017 JEFFERY DE SOUZA MD Ot R07.9 CHEST PAIN, UNSPECIFIED 10/04/2017 JEFFERY DE SOUZA MD Ot I82.403 ACUTE EMBOLISM AND THOMBOS UNSP DEEP VEI 10/04/2017 JEFFERY DE SOUZA MD Ot Z79.01 FDC (CURRENT) USE OF ANTICOAGULANT 10/04/2017 JEFFERY DE SOUZA MD Ot I26.99 OTHER PULMONARY EMBOLISM WITHOUT ACUTE C 10/04/2017 JEFFERY DE SOUZA MD Ot Z51.81 ENCOUNTER FOR THERAPEUTIC DRUG LEVEL MON 10/04/2017 JEFFERY DE SOUZA MD Ot I50.9 HEART FAILURE, UNSPECIFIED 10/04/2017 JEFFERY DE SOUZA MD Ot I10 ESSENTIAL (PRIMARY) HYPERTENSION 10/04/2017 JEFFERY DE SOUZA MD Ot I25.10 ATHSCL HEART DISEASE OF [place] CORONARY 10/04/2017 JEFFERY DE SOUZA MD Ot R06.00 DYSPNEA, UNSPECIFIED 10/04/2017 JEFFERY DE SOUZA MD Ot R07.89 OTHER CHEST PAIN 10/04/2017 FREDRICK MCCAULEY MD Ot I25.119 ATHSCL HEART DISEASE OF [place] COR ART W 10/04/2017 FREDRICK MCCAULEY MD Ot Z01.812 ENCOUNTER FOR PREPROCEDURAL LABORATORY E 10/04/2017 NOLVIA MD, BASHAR J Ot I26.99 OTHER PULMONARY EMBOLISM WITHOUT ACUTE C 10/04/2017 JEFFERY DE SOUZA MD Ot Z79.01 MANAGER EQUIPMENT (CURRENT) USE OF ANTICOAGULANT 10/04/2017 JEFFERY DE SOUZA MD Ot M79.605 PAIN IN LEFT LEG 10/09/2017 JEFFERY DE SOUZA MD Ot I26.99 OTHER PULMONARY EMBOLISM WITHOUT ACUTE C 10/09/2017 JEFFERY DE SOUZA MD Ot Z79.01 FDC (CURRENT) USE OF ANTICOAGULANT 10/09/2017 JEFFERY DE SOUZA MD Ot M79.605 PAIN IN LEFT LEG 10/18/2017 JEFFERY DE SOUZA MD Ot F17.200 NICOTINE DEPENDENCE, UNSPECIFIED, UNCOMP 10/18/2017 JEFFERY DE SOUZA MD Ot I10 ESSENTIAL (PRIMARY) HYPERTENSION 10/18/2017 JEFFERY DE SOUZA MD Ot I25.10 ATHSCL HEART DISEASE OF [place] CORONARY 10/18/2017 JEFFERY DE SOUZA MD Ot I26.99 OTHER PULMONARY EMBOLISM WITHOUT ACUTE C 10/18/2017 JEFFERY DE SOUZA MD Ot I70.0 ATHEROSCLEROSIS OF [place] 10/18/2017 JEFFERY DE SOUZA MD Ot 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 10/18/2017 JEFFERY DE SOUZA MD Ot I82.409 ACUTE EMBOLISM AND THOMBOS UNSP DEEP VN 10/18/2017 JEFFERY DE SOUZA MD Ot M89.572 OSTEOLYSIS, LEFT ANKLE AND FOOT 10/18/2017 JEFFERY DE SOUZA MD Ot R06.00 DYSPNEA, UNSPECIFIED 10/18/2017 CÉSAR KILGORE MD Ot G63 POLYNEUROPATHY IN DISEASES CLASSIFIED EL 10/18/2017 CÉSAR KILGORE MD Ot I75.022 ATHEROEMBOLISM OF LEFT LOWER EXTREMITY 10/18/2017 CÉSAR KILGORE MD Ot M79.662 PAIN IN LEFT LOWER LEG 10/24/2017 JEFFERY DE SOUZA MD Ot F17.200 NICOTINE DEPENDENCE, UNSPECIFIED, UNCOMP 10/24/2017 JEFFERY DE SOUZA MD Ot I10 ESSENTIAL (PRIMARY) HYPERTENSION 10/24/2017 JEFFERY DE SOUZA MD Ot I25.10 ATHSCL HEART DISEASE OF [place] CORONARY 10/24/2017 JEFFERY DE SOUZA MD Ot I26.99 OTHER PULMONARY EMBOLISM WITHOUT ACUTE C 10/24/2017 JEFFERY DE SOUZA MD Ot I70.0 ATHEROSCLEROSIS OF [place] 10/24/2017 JEFFERY DE SOUZA MD Ot 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 10/24/2017 JEFFERY DE SOUZA MD Ot I82.409 ACUTE EMBOLISM AND THOMBOS UNSP DEEP VN 10/24/2017 JEFFERY DE SOUZA MD Ot M89.572 OSTEOLYSIS, LEFT ANKLE AND FOOT 10/24/2017 JEFFERY DE SOUZA MD Ot R06.00 DYSPNEA, UNSPECIFIED 10/25/2017 JEFFERY DE SOUZA MD Ot I10 ESSENTIAL (PRIMARY) HYPERTENSION 10/25/2017 JEFFERY DE SOUZA MD Ot I21.3 ST ELEVATION (STEMI) MYOCARDIAL INFARCTI 10/25/2017 JEFFERY DE SOUZA MD Ot I25.10 ATHSCL HEART DISEASE OF [place] CORONARY 10/25/2017 JEFFERY DE SOUZA MD Ot K27.9 PEPTIC ULC, SITE UNSP, UNSP AC OR CHR 10/25/2017 JEFFERY DE SOUZA MD Ot R06.02 SHORTNESS OF BREATH 10/25/2017 JEFFERY DE SOUZA MD Ot R07.89 OTHER CHEST PAIN 10/28/2017 YUMIKO ENRIQUE, VIOLA Gutierrez Ot M79.89 OTHER SPECIFIED SOFT TISSUE DISORDERS 10/31/2017 JEFFERY DE SOUZA MD Ot I50.9 HEART FAILURE, UNSPECIFIED 11/01/2017 JEFFERY DE SOUZA MD Ot F17.200 NICOTINE DEPENDENCE, UNSPECIFIED, UNCOMP 11/01/2017 JEFFERY DE SOUZA MD Ot I10 ESSENTIAL (PRIMARY) HYPERTENSION 11/01/2017 JEFFERY DE SOUZA MD Ot I25.10 ATHSCL HEART DISEASE OF [place] CORONARY 11/01/2017 JEFFERY DE SOUZA MD Ot I26.99 OTHER PULMONARY EMBOLISM WITHOUT ACUTE C 11/01/2017 JEFFERY DE SOUZA MD Ot I70.0 ATHEROSCLEROSIS OF [place] 11/01/2017 JEFFERY DE SOUZA MD Ot 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 11/01/2017 JEFFERY DE SOUZA MD Ot I82.409 ACUTE EMBOLISM AND THOMBOS UNSP DEEP VN 11/01/2017 JEFFERY DE SOUZA MD Ot M89.572 OSTEOLYSIS, LEFT ANKLE AND FOOT 11/01/2017 JEFFERY DE SOUZA MD Ot R06.00 DYSPNEA, UNSPECIFIED 11/06/2017 JEFFERY DE SOUZA MD Ot I50.9 HEART FAILURE, UNSPECIFIED 11/08/2017 MAGUI ENRIQUE, CÉSAR Sanchez Ot G63 POLYNEUROPATHY IN DISEASES CLASSIFIED EL 11/08/2017 MAGUI ENRIQUE, CÉSAR Sanchez Ot I75.022 ATHEROEMBOLISM OF LEFT LOWER EXTREMITY 11/08/2017 MAGUI ENRIQUE, CÉSAR Sanchez Ot M79.662 PAIN IN LEFT LOWER LEG 11/08/2017 YUMIKO ENRIQUE, VIOLA Gutierrez Ot M79.89 OTHER SPECIFIED SOFT TISSUE DISORDERS 11/08/2017 JEFFERY DE SOUZA MD Ot I10 ESSENTIAL (PRIMARY) HYPERTENSION 11/08/2017 JEFFERY DE SOUZA MD Ot I21.3 ST ELEVATION (STEMI) MYOCARDIAL INFARCTI 11/08/2017 JEFFERY DE SOUZA MD Ot I25.10 ATHSCL HEART DISEASE OF [place] CORONARY 11/08/2017 JEFFERY DE SOUZA MD Ot K27.9 PEPTIC ULC, SITE UNSP, UNSP AC OR CHR 11/08/2017 JEFFERY DE SOUZA MD Ot R06.02 SHORTNESS OF BREATH 11/08/2017 JEFFERY DE SOUZA MD Ot R07.89 OTHER CHEST PAIN 11/20/2017 JEFFERY DE SOUZA MD Ot F17.200 NICOTINE DEPENDENCE, UNSPECIFIED, UNCOMP 11/20/2017 JEFFERY DE SOUZA MD Ot I10 ESSENTIAL (PRIMARY) HYPERTENSION 11/20/2017 JEFFERY DE SOUZA MD Ot I25.10 ATHSCL HEART DISEASE OF [place] CORONARY 11/20/2017 JEFFERY DE SOUZA MD Ot I26.99 OTHER PULMONARY EMBOLISM WITHOUT ACUTE C 11/20/2017 JEFFERY DE SOUZA MD Ot I70.0 ATHEROSCLEROSIS OF [place] 11/20/2017 JEFFERY DE SOUZA MD Ot 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 11/20/2017 JEFFERY DE SOUZA MD Ot I82.402 ACUTE EMBOLISM AND THOMBOS UNSP DEEP VEI 11/20/2017 JEFFERY DE SOUZA MD Ot M89.572 OSTEOLYSIS, LEFT ANKLE AND FOOT 11/20/2017 JEFFERY DE SOUZA MD Ot R06.00 DYSPNEA, UNSPECIFIED 11/27/2017 JEFFERY DE SOUZA MD Ot F17.200 NICOTINE DEPENDENCE, UNSPECIFIED, UNCOMP 11/27/2017 JEFFERY DE SOUZA MD Ot I10 ESSENTIAL (PRIMARY) HYPERTENSION 11/27/2017 JEFFERY DE SOUZA MD Ot I25.10 ATHSCL HEART DISEASE OF [place] CORONARY 11/27/2017 JEFFERY DE SOUZA MD Ot I26.99 OTHER PULMONARY EMBOLISM WITHOUT ACUTE C 11/27/2017 JEFFERY DE SOUZA MD Ot I70.0 ATHEROSCLEROSIS OF [place] 11/27/2017 JEFFERY DE SOUZA MD Ot 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 11/27/2017 JEFFERY DE SOUZA MD Ot I82.402 ACUTE EMBOLISM AND THOMBOS UNSP DEEP VEI 11/27/2017 JEFFERY DE SOUZA MD Ot M89.572 OSTEOLYSIS, LEFT ANKLE AND FOOT 11/27/2017 JEFFERY DE SOUZA MD Ot R06.00 DYSPNEA, UNSPECIFIED 11/28/2017 JEFFERY DE SOUZA MD Ot I26.99 OTHER PULMONARY EMBOLISM WITHOUT ACUTE C 11/28/2017 JEFFERY DE SOUZA MD Ot Z79.01 FDC (CURRENT) USE OF ANTICOAGULANT 11/29/2017 JEFFERY DE SOUZA MD Ot I26.99 OTHER PULMONARY EMBOLISM WITHOUT ACUTE C 11/29/2017 JEFFERY DE SOUZA MD Ot Z79.01 [facility]DC (CURRENT) USE OF ANTICOAGULANT 03/15/2018 JEFFERY DE SOUZA MD Ot I26.99 OTHER PULMONARY EMBOLISM WITHOUT ACUTE C 03/15/2018 JEFFERY DE SOUZA MD Ot Z79.01 FDC (CURRENT) USE OF ANTICOAGULANT 03/15/2018 JEFFERY DE SOUZA MD Ot I26.99 OTHER PULMONARY EMBOLISM WITHOUT ACUTE C 03/15/2018 JEFFERY DE SOUZA MD Ot Z79.01 MANAGER EQUIPMENT (CURRENT) USE OF ANTICOAGULANT 04/22/2018 JEFFERY DE SOUZA MD Ot I26.99 OTHER PULMONARY EMBOLISM WITHOUT ACUTE C 04/22/2018 JEFFERY DE SOUZA MD Ot Z79.01 FDC (CURRENT) USE OF ANTICOAGULANT 04/23/2018 JEFFERY DE SOUZA MD Ot I26.99 OTHER PULMONARY EMBOLISM WITHOUT ACUTE C 04/23/2018 JEFFERY DE SOUZA MD Ot Z79.01 MANAGER EQUIPMENT (CURRENT) USE OF ANTICOAGULANT 04/25/2018 JEFFERY DE SOUZA MD Ot I26.99 OTHER PULMONARY EMBOLISM WITHOUT ACUTE C 04/25/2018 JEFFERY DE SOUZA MD Ot Z79.01 FDC (CURRENT) USE OF ANTICOAGULANT 05/28/2018 JEFFERY DE SOUZA MD Ot I26.99 OTHER PULMONARY EMBOLISM WITHOUT ACUTE C 05/28/2018 JEFFERY DE SOUZA MD, Ot Z79.01 [facility]DC (CURRENT) USE OF ANTICOAGULANT Procedures Code Description Performed By Performed On CARDIOLOG JEFFERY DE SOUZA 01/30/2014 [id number] DILATION OF 1 COR ART WITH DRUG-ELUT INT 07/12/2017 [id number] MEASURE OF CARDIAC SAMPL PRESSURE, L H 07/12/2017 [id number] FLUOROSCOPY OF MULT COR ART USING L OSM 07/12/2017 [id number] FLUOROSCOPY OF LEFT HEART USING LOW OSMO [...] rate by westergren method 13 mm 0-15 Bacterial blood culture - 09/22/17 23:30 Bacterial blood culture NG NRG Complete blood count (CBC) with automated white [...] rate by westergren method > mm 0-15 Bacterial blood culture - 09/22/17 23:50 Bacterial blood culture NG NRG PT panel in platelet poor plasma by coagulation assay - 09/23/17 05:26 Prothrombin time (PT) in platelet poor plasma by coagulation assay 37.3 s 12.2-14.7 INR in platelet poor plasma or blood by coagulation assay 3.8 0.8-1.4 Activated partial thromboplastin time (aPTT) in platelet poor plasma bycoagulation assay - 09/23/17 05:26 Activated partial thromboplastin time (aPTT) in platelet poor plasma bycoagulation assay 116 s 24-35 Complete blood count (CBC) with automated white blood cell (WBC) differential - 09/23/17 05:26 Blood leukocytes automated count (number/volume) 11.4 10*3/uL 4.3-11.0 Blood erythrocytes automated count (number/volume) 3.34 10*6/uL 4.35-5.85 Venous blood hemoglobin measurement (mass/volume) 9.7 g/dL 13.3-17.7 Blood hematocrit (volume fraction) 29 % 40-54 Automated erythrocyte mean corpuscular volume 88 [foz_us] 80-99 Automated erythrocyte mean corpuscular hemoglobin (mass per erythrocyte) 29 pg 25-34 Automated erythrocyte mean corpuscular hemoglobin concentration measurement ( mass/volume) 33 g/dL 32-36 Automated erythrocyte distribution width ratio 13.7 % 10.0-14.5 Automated blood platelet count (count/volume) 487 10*3/uL 130-400 Automated blood platelet mean volume measurement 9.6 [foz_us] 7.4-10.4 Automated blood neutrophils/100 leukocytes 75 % 42-75 Automated blood lymphocytes/100 leukocytes 10 % 12-44 Blood monocytes/100 leukocytes 12 % 0-12 Automated blood eosinophils/100 leukocytes 3 % 0-10 Automated blood basophils/100 leukocytes 0 % 0-10 Blood neutrophils automated count (number/volume) 8.5 10*3 1.8-7.8 Blood lymphocytes automated count (number/volume) 1.2 10*3 1.0-4.0 Blood monocytes automated count (number/volume) 1.4 10*3 0.0-1.0 Automated eosinophil count 0.3 10*3/uL 0.0-0.3 Automated blood basophil count (count/volume) 0.0 10*3/uL 0.0-0.1 Comprehensive metabolic panel - 09/23/17 05:26 Serum or plasma sodium measurement (moles/volume) 141 mmol/L 135-145 Serum or plasma potassium measurement (moles/volume) 3.4 mmol/L 3.6-5.0 Serum or plasma chloride measurement (moles/volume) 98 mmol/L 98-107 Carbon dioxide 29 mmol/L 21-32 Serum or plasma anion gap determination (moles/volume) 14 mmol/L 5-14 Serum or plasma urea nitrogen measurement (mass/volume) 8 mg/dL 7-18 Serum or plasma creatinine measurement (mass/volume) 0.68 mg/dL 0.60-1.30 Serum or plasma urea nitrogen/creatinine mass ratio 12 NRG Serum or plasma creatinine measurement with calculation of estimated glomerular filtration rate > NRG Serum or plasma glucose measurement (mass/volume) 92 mg/dL 70-105 Serum or plasma calcium measurement (mass/volume) 9.3 mg/dL 8.5-10.1 Serum or plasma total bilirubin measurement (mass/volume) 0.4 mg/dL 0.1-1.0 Serum or plasma alkaline phosphatase measurement (enzymatic activity/volume) 78 U/L 40-136 Serum or plasma aspartate aminotransferase measurement (enzymatic activity/ volume) 17 U/L 5-34 Serum or plasma alanine aminotransferase measurement (enzymatic activity/volume ) 17 U/L 0-55 Serum or plasma protein measurement (mass/volume) 7.0 g/dL 6.4-8.2 Serum or plasma albumin measurement (mass/volume) 3.2 g/dL 3.2-4.5 Complete blood count (CBC) with automated white blood cell (WBC) differential - 09/24/17 07:07 Blood leukocytes automated count (number/volume) 10.4 10*3/uL 4.3-11.0 Blood erythrocytes automated count (number/volume) 3.93 10*6/uL 4.35-5.85 Venous blood hemoglobin measurement (mass/volume) 11.3 g/dL 13.3-17.7 Blood hematocrit (volume fraction) 34 % 40-54 Automated erythrocyte mean corpuscular volume 87 [foz_us] 80-99 Automated erythrocyte mean corpuscular hemoglobin (mass per erythrocyte) 29 pg 25-34 Automated erythrocyte mean corpuscular hemoglobin concentration measurement ( mass/volume) 33 g/dL 32-36 Automated erythrocyte distribution width ratio 14.0 % 10.0-14.5 Automated blood platelet count (count/volume) 570 10*3/uL 130-400 Automated blood platelet mean volume measurement 8.9 [foz_us] 7.4-10.4 Automated blood neutrophils/100 leukocytes 84 % 42-75 Automated blood lymphocytes/100 leukocytes 9 % 12-44 Blood monocytes/100 leukocytes 5 % 0-12 Automated blood eosinophils/100 leukocytes 1 % 0-10 Automated blood basophils/100 leukocytes 0 % 0-10 Blood neutrophils automated count (number/volume) 8.7 10*3 1.8-7.8 Blood lymphocytes automated count (number/volume) 1.0 10*3 1.0-4.0 Blood monocytes automated count (number/volume) 0.5 10*3 0.0-1.0 Automated eosinophil count 0.2 10*3/uL 0.0-0.3 Automated blood basophil count (count/volume) 0.0 10*3/uL 0.0-0.1 PT panel in platelet poor plasma by coagulation assay - 09/24/17 07:07 Prothrombin time (PT) in platelet poor plasma by coagulation assay 32.3 s 12.2-14.7 INR in platelet poor plasma or blood by coagulation assay 3.2 0.8-1.4 Comprehensive metabolic panel - 09/24/17 07:07 Serum or plasma sodium measurement (moles/volume) 141 mmol/L 135-145 Serum or plasma potassium measurement (moles/volume) 3.6 mmol/L 3.6-5.0 Serum or plasma chloride measurement (moles/volume) 99 mmol/L 98-107 Carbon dioxide 29 mmol/L 21-32 Serum or plasma anion gap determination (moles/volume) 13 mmol/L 5-14 Serum or plasma urea nitrogen measurement (mass/volume) 7 mg/dL 7-18 Serum or plasma creatinine measurement (mass/volume) 0.71 mg/dL 0.60-1.30 Serum or plasma urea nitrogen/creatinine mass ratio 10 NRG Serum or plasma creatinine measurement with calculation of estimated glomerular filtration rate > NRG Serum or plasma glucose measurement (mass/volume) 139 mg/dL 70-105 Serum or plasma calcium measurement (mass/volume) 9.8 mg/dL 8.5-10.1 Serum or plasma total bilirubin measurement (mass/volume) 0.4 mg/dL 0.1-1.0 Serum or plasma alkaline phosphatase measurement (enzymatic activity/volume) 90 U/L 40-136 Serum or plasma aspartate aminotransferase measurement (enzymatic activity/ volume) 22 U/L 5-34 Serum or plasma alanine aminotransferase measurement (enzymatic activity/volume ) 21 U/L 0-55 Serum or plasma protein measurement (mass/volume) 7.6 g/dL 6.4-8.2 Serum or plasma albumin measurement (mass/volume) 3.5 g/dL 3.2-4.5 Vancomycin trough - 09/24/17 07:07 Vancomycin trough 13.6 ug/mL 10.0-20.0 Complete blood count (CBC) with automated white blood cell (WBC) differential - 09/25/17 05:20 Blood leukocytes automated count (number/volume) 10.5 10*3/uL 4.3-11.0 Blood erythrocytes automated count (number/volume) 3.74 10*6/uL 4.35-5.85 Venous blood hemoglobin measurement (mass/volume) 10.8 g/dL 13.3-17.7 Blood hematocrit (volume fraction) 33 % 40-54 Automated erythrocyte mean corpuscular volume 88 [foz_us] 80-99 Automated erythrocyte mean corpuscular hemoglobin (mass per erythrocyte) 29 pg 25-34 Automated erythrocyte mean corpuscular hemoglobin concentration measurement ( mass/volume) 33 g/dL 32-36 Automated erythrocyte distribution width ratio 14.2 % 10.0-14.5 Automated blood platelet count (count/volume) 631 10*3/uL 130-400 Automated blood platelet mean volume measurement 8.9 [foz_us] 7.4-10.4 Automated blood neutrophils/100 leukocytes 77 % 42-75 Automated blood lymphocytes/100 leukocytes 12 % 12-44 Blood monocytes/100 leukocytes 9 % 0-12 Automated blood eosinophils/100 leukocytes 2 % 0-10 Automated blood basophils/100 leukocytes 0 % 0-10 Blood neutrophils automated count (number/volume) 8.1 10*3 1.8-7.8 Blood lymphocytes automated count (number/volume) 1.3 10*3 1.0-4.0 Blood monocytes automated count (number/volume) 1.0 10*3 0.0-1.0 Automated eosinophil count 0.2 10*3/uL 0.0-0.3 Automated blood basophil count (count/volume) 0.0 10*3/uL 0.0-0.1 Comprehensive metabolic panel - 09/25/17 05:20 Serum or plasma sodium measurement (moles/volume) 141 mmol/L 135-145 Serum or plasma potassium measurement (moles/volume) 3.6 mmol/L 3.6-5.0 Serum or plasma chloride measurement (moles/volume) 98 mmol/L 98-107 Carbon dioxide 30 mmol/L 21-32 Serum or plasma anion gap determination (moles/volume) 13 mmol/L 5-14 Serum or plasma urea nitrogen measurement (mass/volume) 7 mg/dL 7-18 Serum or plasma creatinine measurement (mass/volume) 0.70 mg/dL 0.60-1.30 Serum or plasma urea nitrogen/creatinine mass ratio 10 NRG Serum or plasma creatinine measurement with calculation of estimated glomerular filtration rate > NRG Serum or plasma glucose measurement (mass/volume) 109 mg/dL 70-105 Serum or plasma calcium measurement (mass/volume) 9.6 mg/dL 8.5-10.1 Serum or plasma total bilirubin measurement (mass/volume) 0.4 mg/dL 0.1-1.0 Serum or plasma alkaline phosphatase measurement (enzymatic activity/volume) 78 U/L 40-136 Serum or plasma aspartate aminotransferase measurement (enzymatic activity/ volume) 24 U/L 5-34 Serum or plasma alanine aminotransferase measurement (enzymatic activity/volume ) 24 U/L 0-55 Serum or plasma protein measurement (mass/volume) 7.5 g/dL 6.4-8.2 Serum or plasma albumin measurement (mass/volume) 3.3 g/dL 3.2-4.5 PT panel in platelet poor plasma by coagulation assay - 09/25/17 05:20 Prothrombin time (PT) in platelet poor plasma by coagulation assay 29.6 s 12.2-14.7 INR in platelet poor plasma or blood by coagulation assay 2.8 0.8-1.4 BMP - 10/03/17 11:00 Anion Gap 17 6-14 BUN 7 mg/dL 5-25 Calcium 10.4 mg/dL 8.3-10.4 Chloride 97 mmol/L 95-114 CO2 30 mEq/L 22-33 Creat 0.74 mg/dL 0.50-1.50 eGFR 114 mL/min/1.73m2 >59 Glucose 98 mg/dL 70-110 Osmo 287 280-295 Potassium 3.8 mmol/L 3.5-5.3 Sodium 140 mmol/L 134-148 D-Dimer - 10/03/17 11:01 DDimer 397.00 ng/mL 21.00-229.00 Platelets - 10/03/17 13:06 Plt 774 K/uL 150-400 Automated blood complete blood count (hemogram) panel - 10/24/17 11:06 Blood leukocytes automated count (number/volume) 14.3 10*3/uL 4.3-11.0 Blood erythrocytes automated count (number/volume) 5.13 10*6/uL 4.35-5.85 Venous blood hemoglobin measurement (mass/volume) 14.2 g/dL 13.3-17.7 Blood hematocrit (volume fraction) 44 % 40-54 Automated erythrocyte mean corpuscular volume 85 [foz_us] 80-99 Automated erythrocyte mean corpuscular hemoglobin (mass per erythrocyte) 28 pg 25-34 Automated erythrocyte mean corpuscular hemoglobin concentration measurement ( mass/volume) 33 g/dL 32-36 Automated erythrocyte distribution width ratio 16.2 % 10.0-14.5 Automated blood platelet count (count/volume) 391 10*3/uL 130-400 Automated blood platelet mean volume measurement 8.6 [foz_us] 7.4-10.4 Serum or plasma uric acid measurement (mass/volume) - 10/24/17 11:06 Serum or plasma uric acid measurement (mass/volume) 3.4 mg/dL 2.6-7.2 Serum or plasma C reactive protein measurement (mass/volume) - 10/24/17 11:06 Serum or plasma C reactive protein measurement (mass/volume) 0.31 mg /dL 0.00-0.50 Encounters ACCT No. Visit Date/Time Discharge Status Pt. Type Provider Facility Loc./Unit Complaint [id number] 11/19/2014 09:47:00 11/19/2014 23:59:59 CLS Outpatient TRE SULTANA APRN [id number] 01/30/2014 12:54:00 01/30/2014 23:59:59 CLS Outpatient UTE PUTNAM APRN [id number] 11/25/2012 09:24:00 11/25/2012 23:59:59 CLS Outpatient CALVIN SCHERER DO [id number] 10/03/2017 10:36:00 10/03/2017 13:45:00 DIS Outpatient Breanna Castellano [id number] 10/03/2017 11:26:46 Document Registration [id number] 05/26/2018 00:54:00 05/26/2018 23:59:59 CLS Preadmit NOLVIA ENRIQUE, JEFFERY Gutierrez [facility] LAB I26.99 [id number] 04/22/2018 12:38:00 04/25/2018 00:01:00 DIS Outpatient JEFFERY DE SOUZA MD [facility] LAB I26.99 [id number] 11/29/2017 00:17:00 11/29/2017 23:59:59 CLS Preadmit JEFFERY DE SOUZA MD [facility] LAB I26.99 [id number] 10/17/2017 09:38:00 11/28/2017 00:01:00 DIS Outpatient JEFFERY DE SOUZA MD [facility] LAB I26.99 [id number] 11/01/2017 11:00:00 11/01/2017 23:59:59 CLS Preadmit JEFFERY DE SOUZA MD Via [facility] [id number] 09/04/2017 11:37:00 10/31/2017 00:01:00 DIS Outpatient JEFFERY DE SOUZA MD [facility] [id number] 10/24/2017 10:36:00 10/24/2017 23:59:59 CLS Outpatient JEFFERY DE SOUZA MD [facility] LAB I25.10 [id number] 10/24/2017 10:27:00 10/24/2017 23:59:59 CLS Outpatient VIOLA CALDERON MD [facility] RAD M25.572 [id number] 10/17/2017 15:13:00 10/17/2017 23:59:59 CLS Outpatient JEFFERY DE SOUZA MD [facility] RAD ASDF [id number] 10/14/2017 11:45:00 10/14/2017 23:59:59 CLS Outpatient CÉSAR KILGORE MD [facility] WOUNDCARE [id number] 09/23/2017 00:55:00 09/25/2017 13:00:00 DIS Inpatient TWAN ENRIQUE, FREDRICK Faulkner [facility] 4TH CELLULITIS L LEG [id number] 09/17/2017 09:08:00 09/17/2017 23:59:59 CLS Outpatient JEFFERY DE SOUZA MD [facility] RAD LEFT LEG PAIN [id number] 09/15/2017 11:43:00 09/15/2017 15:31:00 DIS Emergency VIANEY SWEET APRN [facility] ER L LEG PAIN/SWELLING/HX BLOOD CLOTS [id number] 09/05/2017 10:30:00 09/05/2017 23:59:59 CLS Outpatient JEFFERY DE SOUZA MD [facility] CARD CAD, CHEST PAIN SYNDROME [id number] 05/26/2017 07:00:00 08/24/2017 00:01:00 DIS Outpatient JEFFERY DE SOUZA MD [facility] LAB I26.99 [id number] 08/09/2017 09:16:00 08/09/2017 23:59:59 CLS Outpatient FREDRICK MCCAULEY MD [facility] LAB Z01.812 I25.119 [id number] 08/02/2017 11:24:00 08/02/2017 11:53:00 DIS Emergency ROCHELLE OLIVER [facility] ER LUMP ON CHEST [id number] 07/11/2017 17:12:00 07/15/2017 14:45:00 DIS Inpatient SONIYA JAMES DO [facility] ICU CHEST PAIN,N/V [id number] 05/09/2017 10:49:00 05/25/2017 00:01:00 DIS Outpatient JEFFERY DE SOUZA MD [facility] LAB I26.99 [id number] 04/13/2017 15:07:00 04/13/2017 17:28:00 DIS Emergency ROCHELLE OLIVER [facility] ER SWELLING IN R ARM AFTER FLU SHOT [id number] 04/09/2017 10:55:00 04/09/2017 23:59:59 CLS Outpatient JEFFERY DE SOUZA MD [facility] LAB I26.99,Z51.81 [id number] 04/03/2017 00:08:00 04/03/2017 23:59:59 CLS Preadmit JEFFERY DE SOUZA MD [facility] LAB DVT [id number] 02/20/2017 11:24:00 04/02/2017 00:01:00 DIS Outpatient JEFFERY DE SOUZA MD [facility] LAB DVT [id number] 01/09/2017 17:21:00 01/09/2017 19:18:00 DIS Emergency ROCHELLE OLIVER [facility] ER LOWER CHEST PAIN [id number] 11/28/2016 08:17:00 12/11/2016 00:01:00 DIS Outpatient JEFFERY DE SOUZA MD [facility] LAB DVT [id number] 07/02/2016 13:09:00 08/30/2016 00:01:00 DIS Outpatient JEFFERY DE SOUZA MD [facility] LAB DVT [id number] 08/08/2016 10:25:00 08/08/2016 19:55:00 DIS Outpatient JEFFERY DE SOUZA MD [facility] CATH ABN STRESS,CP,CAD [id number] 08/06/2016 07:31:00 08/06/2016 23:59:59 CLS Outpatient JEFFERY DE SOUZA MD [facility] CARD CAD, CHF, CHEST PAIN SYNDROME, DVT, HTN, PE [id number] 07/26/2016 11:12:00 07/26/2016 23:59:59 CLS Outpatient JEFFERY DE SOUZA MD [facility] CARD CAD, CHF, CHEST PAIN SYNDROME, DVT, HTN, PE [id number] 02/22/2016 13:12:00 05/22/2016 00:01:00 DIS Outpatient JEFFERY DE SOUZA MD [facility] LAB DVT [id number] 01/22/2016 14:55:00 01/22/2016 17:15:00 DIS Emergency VIANEY SWEET APRN [facility] ER R ARM PAIN [id number] 04/01/2015 09:29:00 05/25/2015 00:01:00 DIS Outpatient JEFFERY DE SOUZA MD [facility] LAB ANTICOAG THERAPY,HX PE [id number] 04/01/2015 08:34:00 04/01/2015 10:54:00 DIS Emergency JOHN MONDRAGON MD [facility] ER RIGHT FOOT PAIN/COUGH [id number] 10/27/2014 11:05:00 01/25/2015 00:01:00 DIS Outpatient NOLVIA ENRIQUE, JEFFERY Gutierrez [facility] LAB ANTICOAG THERAPY,HX PE [id number] 06/01/2014 14:51:00 2014 00:01:00 DIS Outpatient JEFFERY DE SOUZA MD [facility] LAB ANTICOAG THERAPY,HX PE [id number] 12/07/2013 18:10:00 12/20/2013 00:01:00 DIS Outpatient JEFFERY DE SOUZA MD [facility] LAB ANTICOAG THERAPY,HX PE [id number] 05/03/2013 15:59:00 07/08/2013 00:01:00 DIS Outpatient JEFFERY DE SOUZA MD [facility] LAB ANTICOAG THERAPY,HX PE [id number] 01/09/2013 18:23:00 01/09/2013 19:22:00 DIS Emergency YVETTE ENRIQUE, MENDOZA Gruber [facility] ER LEFT ANKLE PAIN [id number] 07/11/2018 14:04:00 ACT Emergency JENARO ENRIQUE, NILO Faulkner [facility] ER CHEST PAIN [id number] 07/06/2015 09:36:00 Document Registration [id number] 07/06/2015 09:36:00 Document Registration [id number] 07/06/2015 09:36:00 Document Registration [id number] 07/06/2015 09:36:00 Document Registration [id number] 07/06/2015 09:36:00 Document Registration [id number] 07/06/2015 09:36:00 Document Registration [id number] 07/06/2015 09:36:00 Document Registration [id number] 07/06/2015 09:36:00 Document Registration [id number] 07/06/2015 09:36:00 Document Registration [id number] 07/06/2015 09:36:00 Document Registration [id number] 07/06/2015 09:36:00 Document Registration [id number] 07/06/2015 09:36:00 Document Registration [id number] 11/25/2014 10:38:00 Document Registration [id number] 11/25/2014 10:38:00 Document Registration [id number] 11/25/2014 10:37:00 Document Registration [id number] 11/25/2014 10:37:00 Document Registration [id number] 10/31/2014 21:35:00 Document Registration [id number] 12/02/2012 16:55:00 Document Registration [id number] 11/11/2012 08:29:00 Document Registration [id number] 10/14/2012 10:36:00 Document Registration [id number] 09/24/2012 07:36:00 Document Registration [id number] 09/17/2012 10:00:00 Document Registration [id number] 09/16/2012 13:04:00 Document Registration [id number] 07/27/2012 16:16:00 Document Registration [id number] 04/30/2012 21:41:00 Document Registration [id number] 04/02/2012 12:15:00 Document Registration [id number] 11/18/2011 13:43:00 Document Registration [id number] 06/04/2011 10:15:00 Document Registration [id number] 05/23/2011 06:51:00 Document Registration [id number] 05/19/2011 08:46:00 Document Registration [id number] 01/16/2011 10:21:00 Document Registration [id number] 11/26/2010 14:37:00 Document Registration [id number] 05/17/2010 09:40:00 Document Registration [id number] 01/18/2010 17:02:00 Document Registration [id number] 12/29/2009 09:19:00 Document Registration [id number] 08/04/2009 08:28:00 Document Registration [id number] 04/28/2009 13:16:00 Document Registration [id number] 06/09/2008 08:46:00 Document Registration [id number] 05/10/2008 12:11:00 Document Registration [id number] 03/25/2008 14:03:00 Document Registration [id number] 01/03/2008 08:26:00 Document Registration [id number] 11/20/2007 09:23:00 Document Registration [id number] 10/23/2007 11:12:00 Document Registration [id number] 10/02/2007 12:14:00 Document Registration [id number] 03/27/2007 10:33:00 Document Registration [id number] 01/07/2007 14:25:00 Document Registration [id number] 11/04/2006 08:46:00 Document Registration [id number] 10/08/2006 14:49:00 Document Registration [id number] 09/02/2006 07:21:00 Document Registration [id number] 08/16/2006 08:00:00 Document Registration [id number] 07/08/2006 08:52:00 Document Registration [id number] 06/19/2006 16:48:00 Document Registration [id number] 03/27/2006 11:44:00 Document Registration [id number] 03/04/2006 09:32:00 Document Registration [id number] 02/15/2006 08:15:00 Document Registration [id number] 12/05/2005 11:33:00 Document Registration [id number] 10/03/2005 11:41:00 Document Registration
[2018-07-11 14:21] LABS: BASOPHILS % (AUTO) 0 % (0-10); EOSINOPHILS # (AUTO) 0.3 10^3/uL (0.0-0.3); EOSINOPHILS % (AUTO) 3 % (0-10); HEMATOCRIT 44 % (40-54); HEMOGLOBIN 14.9 G/DL (13.3-17.7); LYMPHOCYTES # (AUTO) 3.2 X 10^3 (1.0-4.0); LYMPHOCYTES % (AUTO) 30 % (12-44); MEAN CORPUSCULAR HEMOGLOBIN 30 PG (25-34); MEAN CORPUSCULAR HGB CONC 34 G/DL (32-36); MEAN CORPUSCULAR VOLUME 88 FL (80-99); MEAN PLATELET VOLUME 8.7 FL (7.4-10.4); MONOCYTES # (AUTO) 1.2 X 10^3 (0.0-1.0); MONOCYTES % (AUTO) 11 % (0-12); NEUTROPHILS # (AUTO) 6.1 X 10^3 (1.8-7.8); NEUTROPHILS % (AUTO) 57 % (42-75); PLATELET COUNT 362 10^3/uL (130-400); RED BLOOD COUNT 5.04 10^6/uL (4.35-5.85); WHITE BLOOD COUNT 10.7 10^3/uL (4.3-11.0)
[2018-07-11] MEDS ORDERED: NITROGLYCERIN 0.4 MG SL TABS BTL 25'S SL ONE (14:22)
[2018-07-11] MEDS ORDERED: LIDOCAINE 2% VISCOUS 15 ML UDC PO ONE (14:30)
[2018-07-11] MEDS ORDERED: NITROGLYCERIN 0.4 MG SL TABS BTL 25'S SL PRN ×2 (14:30→19:00)
[2018-07-11] MEDS ORDERED: ANTACID SUSP 30 ML UDC (MYLANTA) PO ONE (14:30)
[2018-07-11] MEDS ORDERED: ASPIRIN 81 MG CHEW (CHILDREN'S ASA) PO ONE (14:30)
[2018-07-11 14:34] LABS: INR 1.1 (0.8-1.4); PROTHROMBIN TIME PATIENT 13.8 SEC (12.2-14.7)
--- NOTE | 2018-07-11 14:36 | ED Chest Pain ---
General Stated Complaint: CHEST PAIN Source: patient Exam Limitations: no limitations History of Present Illness Date Seen by Provider: Jul 11, 2018 Time Seen by Provider: 14:17 Initial Comments Here with report of central chest pain. Onset one to 2 hours ago. States it feels like a deep ache and pressure in his chest and also has some left arm numbness since resolved. Did take 1 nitroglycerin for 9 out of 10 chest pain and brought it down to a 5 out of 10. Currently is off his Plavix and aspirin due to the need to have a left AKA done next Saturday. He is off the meds prior to the surgery. He has not had any aspirin today and is refusing currently due to the need for surgery. Long-standing left leg problem with peripheral artery disease with pain that is persisting. This will be amputated on Saturday. Timing/Duration: 1-3 hours Severity/Quality: moderate Location: central Radiation: no radiation Activities at Onset: none Prior CP/Workup: angina, cardiac cath, echocardiography, heart attack, stress test Modifying Factors: improves with nitroglycerin, improves with rest ASA po [employer]: No NTG SL [employer]ER: Yes Associated Symptoms: No back pain, No fatigue, No nausea/vomiting, No shortness of breath, No weakness Allergies and Home Medications Allergies Coded Allergies: Penicillins (Unverified Allergy, Mild, 01/27/09) Home Medications Allopurinol 300 Mg Tablet, 300 MG PO DAILY, (Reported) Atorvastatin Calcium 40 Mg Tablet, 40 MG PO DAILY, (Reported) Carisoprodol 350 Mg Tablet, 350 MG PO HS, (Reported) Clopidogrel Bisulfate 75 Mg Tablet, 75 MG PO DAILY, (Reported) Gabapentin 600 Mg Tablet, 600 MG PO QID, (Reported) Hydrocodone Bit/Acetaminophen 1 Each Tablet, 1 TAB PO Q6H PRN for PAIN-MODERATE Prescribed by: SONIYA JAMES on 09/25/17 1049 Metoprolol Succinate 25 Mg Tab.er.24h, 25 MG PO DAILY, (Reported) Multivits-Minerals/FA/Lycopene 1 Each Tablet, 1 TAB PO DAILY, (Reported) Nitroglycerin 0.4 Mg Tab.subl, 0.4 MG SL UD PRN for CHEST PAIN, (Reported) Leslie 3 Polyunsat Fatty Acids 1,000 Mg Cap, 1,000 MG PO TID, (Reported) Omeprazole Magnesium 20 Mg Tablet.dr, 20 MG PO DAILY, (Reported) Sacubitril/Valsartan 1 Each Tablet, 1 TAB PO BID, (Reported) Sulfamethoxazole/Trimethoprim 1 Each Tablet, 1 EACH PO BID Prescribed by: SONIYA JAMES on 09/25/17 1049 Tizanidine HCl 4 Mg Tablet, 8 MG PO Q8H PRN for MUSCLE SPASMS, (Reported) TAKES 2 (4MG) TABLETS Warfarin Sodium 5 Mg Tablet, 5 MG PO DAILY Prescribed by: SONIYA JAMES on 09/25/17 1049 Patient Home Medication List Home Medication List Reviewed: Yes Review of Systems Review of Systems Constitutional: see HPI; No chills, No fever EENTM: No Symptoms Reported Respiratory: No Symptoms Reported Cardiovascular: Chest Pain; Denies Edema Gastrointestinal: Denies Abdominal Pain, Denies Nausea, Denies Vomiting Genitourinary: No Symptoms Reported Musculoskeletal: joint pain, muscle pain Skin: no symptoms reported Psychiatric/Neurological: See HPI, Numbness (left leg), Pre-Existing Deficit ( and left leg), Tingling (left arm) Endocrine: No Symptoms Reported All Other Systems Reviewed Negative Unless Noted: Yes Past Zzmpucy-Rzxjbc-Gsmmed Hx Past Med/Social Hx: Reviewed Nursing Past Med/Soc Hx Patient Social History Alcohol Use: Denies Use Recreational Drug Use: No Smoking Status: Current Everyday Smoker Type Used: Cigarettes Former Smoker, Quit: Jun 26, 2017 2nd Hand Smoke Exposure: No Recent Hopitalizations: No Immunizations Up To Date Date of Pneumonia Vaccine: Jul 28, 2012 Date of Influenza Vaccine: Jun 08, 2017 Seasonal Allergies Seasonal Allergies: No Past Medical History Surgeries: Yes (CARDIAC CATHS--STENTS X 1. LAST CATH 07/11/17 WITH STENT X 1) Cardiac, Coronary Stent Respiratory: Yes Pulmonary Embolism Currently Using CPAP: No Currently Using BIPAP: No Cardiac: Yes (PA X 2; STENTS X 4; -NSTEMI 07/11/17 WITH 1 STENT PLACED) Coronary Artery Disease, Deep Vein Thrombosis, Heart Attack, High Cholesterol, Hypertension Neurological: No Reproductive Disorders: No Genitourinary: No Gastrointestinal: Yes Gastroesophageal Reflux Musculoskeletal: Yes (HYDROCODONE + IBUPROFEN DAILY) Chronic Back Pain, Gout Endocrine: No HEENT: No Cancer: No Psychosocial: No Integumentary: No Blood Disorders: Yes (PROTEIN S DEFICIENCY--DVT'S AND P.E.'S AND PA X 2) Family Medical History Reviewed Nursing Family Hx Arthritis G8 BROTHER Blood clots 19 MOTHER ( of blood clot) Cardiac disorder 19 FATHER Diabetes mellitus G8 BROTHER FH: cancer paternal grandmother FHx: inflammatory bowel disease G8 BROTHER No Family History of: FH: sudden cardiac (SCD) Heart Disease, Vascular Disease Physical Exam Vital Signs Vital Signs - First Documented 07/11/18 14:11 Temp 97.0 Pulse 81 Resp 26 B/P (MAP) 139/89 (106) Pulse Ox 94 Capillary Refill : Height, Weight, BMI Height: 5'11.00" Weight: 198lbs. 0.0oz. 89.769137lg; 27.6 BMI Method:Stated General Appearance: No Apparent Distress, Chronically ill HEENT: PERRL/EOMI, Pharynx Normal Neck: Non Tender, Supple Respiratory: No Respiratory Distress, Wheezing (a few trace wheezes throughout) Cardiovascular: Regular Rate, Rhythm, No Edema, No Murmur, Other (left leg is hypotrophic and cool to the touch. This is chronic.) Gastrointestinal: Non Tender, Soft Extremity: Normal Range of Motion, Non Tender Neurologic/Psychiatric: Alert, Oriented x3 Skin: Normal Color, Warm/Dry, Cool (left leg) Progress/Results/Core Measures Results/Orders Lab Results Laboratory Tests Test 07/11/18 14:16 07/11/18 16:34 Range/Units White Blood Count 10.7 4.3-11.0 10^3/uL Red Blood Count 5.04 4.35-5.85 10^6/uL Hemoglobin 14.9 13.3-17.7 G/DL Hematocrit 44 40-54 % Mean Corpuscular Volume 88 80-99 FL Mean Corpuscular Hemoglobin 30 25-34 PG Mean Corpuscular Hemoglobin Concent 34 32-36 G/DL Red Cell Distribution Width 14.0 10.0-14.5 % Platelet Count 362 130-400 10^3/uL Mean Platelet Volume 8.7 7.4-10.4 FL Neutrophils (%) (Auto) 57 42-75 % Lymphocytes (%) (Auto) 30 12-44 % Monocytes (%) (Auto) 11 0-12 % Eosinophils (%) (Auto) 3 0-10 % Basophils (%) (Auto) 0 0-10 % Neutrophils # (Auto) 6.1 1.8-7.8 X 10^3 Lymphocytes # (Auto) 3.2 1.0-4.0 X 10^3 Monocytes # (Auto) 1.2 H 0.0-1.0 X 10^3 Eosinophils # (Auto) 0.3 0.0-0.3 10^3/uL Basophils # (Auto) 0.0 0.0-0.1 10^3/uL Prothrombin Time 13.8 12.2-14.7 SEC INR Comment 1.1 0.8-1.4 Activated Partial Thromboplast Time 32 24-35 SEC Sodium Level 139 135-145 MMOL/L Potassium Level 3.5 L 3.6-5.0 MMOL/L Chloride Level 100 98-107 MMOL/L Carbon Dioxide Level 29 21-32 MMOL/L Anion Gap 10 5-14 MMOL/L Blood Urea Nitrogen 8 7-18 MG/DL Creatinine 0.80 0.60-1.30 MG/DL Estimat Glomerular Filtration Rate > 60 BUN/Creatinine Ratio 10 Glucose Level 120 H 70-105 MG/DL Calcium Level 9.8 8.5-10.1 MG/DL Corrected Calcium 9.4 8.5-10.1 MG/DL Magnesium Level 2.1 1.8-2.4 MG/DL Total Bilirubin 0.4 0.1-1.0 MG/DL Aspartate Amino Transf (AST/SGOT) 32 5-34 U/L Alanine Aminotransferase (ALT/SGPT) 32 0-55 U/L Alkaline Phosphatase 96 40-136 U/L Myoglobin 21.2 238.6 H 10.0-92.0 NG/ML Troponin I < 0.30 < 0.30 <0.30 NG/ML Total Protein 7.5 6.4-8.2 GM/DL Albumin 4.5 3.2-4.5 GM/DL Lipase 11 8-78 U/L My Orders Orders - NILO EASON MD Cbc With Automated Diff (07/11/18 14:16) Magnesium (07/11/18 14:16) Chest 1 View, Ap/Pa Only (07/11/18 14:16) Ekg Tracing (07/11/18 14:16) Cardiac Profile 1 (07/11/18 14:16) Comprehensive Metabolic Panel (07/11/18 14:16) Myoglobin Serum (07/11/18 14:16) Protime With Inr (07/11/18 14:16) Partial Thromboplastin Time (07/11/18 14:16) O2 (07/11/18 14:16) Monitor-Rhythm Ecg Trace Only (07/11/18 14:16) Lipid Panel (07/12/18 06:00) Aspirin Chewable Tablet (Baby Aspirin Ch (07/11/18 14:30) Saline Lock/Iv-Start (07/11/18 14:16) Lipase (07/11/18 14:16) Nitroglycerin 0.4 Mg Btl 25's (Nitrostat (07/11/18 14:22) Nitroglycerin 0.4 Mg Btl 25's (Nitrostat (07/11/18 14:30) Lidocaine 2% Viscous 15 Ml (Xylocaine Vi (07/11/18 14:30) Antacid Suspension (Mylanta Suspension (07/11/18 14:30) Morphine Injection (Morphine Injection (07/11/18 15:29) Ekg Tracing (07/11/18 16:31) Troponin I (07/11/18 16:31) Myoglobin Serum (07/11/18 16:31) Ekg Tracing (07/11/18 17:27) Aspirin Chewable Tablet (Baby Aspirin Ch (07/11/18 17:26) Ticagrelor Tablet (Brilinta Tablet) (07/11/18 17:45) Heparin Drip 44059 Unit/500ml (Heparin (07/11/18 17:34) Heparin (Bolus Per Protocol) (Heparin (B (07/11/18 17:34) Medications Given in ED Current Medications Medications Dose Ordered Sig/Erik Route Start Time Stop Time Status Last Admin Dose Admin Al Hydrox/Mg Hydrox/Simethicone 30 ml ONCE ONCE PO 07/11/18 14:30 07/11/18 14:31 DC 07/11/18 15:02 30 ML Aspirin 81 mg STK-MED ONCE .ROUTE 07/11/18 17:26 07/11/18 17:28 DC 07/11/18 17:32 81 MG Lidocaine HCl 15 ml ONCE ONCE PO 07/11/18 14:30 07/11/18 14:31 DC 07/11/18 15:02 15 ML Nitroglycerin 0.4 mg UD PRN SL 07/11/18 14:30 07/11/18 14:58 0.4 MG Vital Signs/I&O 07/11/18 14:11 Temp 97.0 Pulse 81 Resp 26 B/P (MAP) 139/89 (106) Pulse Ox 94 Progress Progress Note : Progress Note Seen and evaluated. IV, labs, EKG and chest x-ray ordered. ASA 324 milligrams ordered but patient refused due to upcoming procedure. Nitroglycerin sublingual ordered. GI cocktail ordered. Monitor patient. 1735: Patient had acute onset of sweating and not feeling well. Definitely concerns given his history for coronary syndrome. Myoglobin has bumped significantly elevated troponin is still negative. I did discuss the case with Dr. Duran and he would like the patient to get Brilenta 180 mg by mouth as well as initiated on heparin ACS protocol. This was ordered. He will likely take the patient for heart catheter tomorrow. He accepts patient in consult. I did discuss the case with Dr. MONDRAGON and he accepts patient for admission, observation status. Patient and family agree with plan. Aspirin 324 mg was given and he accepted at this time. Pain, sweating and odd feeling resolved after brief period of rest. Currently pain-free. Repeat EKG was done due to onset of symptoms. No acute findings. Initial ECG Impression Date: Jul 11, 2018 Initial ECG Impression Time: 14:08 Initial ECG Rate: 82 Initial ECG Rhythm: Normal Sinus Initial ECG Comparisson: Unchanged Comment Sinus rhythm with probable inferior infarct that is old. Unchanged from previous of 09/15/17. Left axis deviation noted. No evidence of ST elevation PA. Interpreted by me. EKG #1: EKG Time: 16:34 Rate: 80 Rhythm: Normal Sinus Comment Normal sinus with left axis deviation. Similar to previous earlier. No evidence of ST elevation PA. Interpreted by me. EKG #2: EKG Time: 17:27 Rate: 78 Comment Sinus rhythm with normal axis. No evidence of ST elevation PA. Similar to previous although improved axis. No evidence of ST elevation PA. Interpreted by me. Diagnostic Imaging Diagonstic Imaging: Xray Plain Films/CT/US/NM/MRI: chest Comments VIA [facility]. [place], [place] NAME: [facility] REC#: [id number] PT STATUS: REG ER : 1970 PHYSICIAN: NILO EASON MD ADMIT DATE: 07/11/18/ER Draft Date of Exam:07/11/18 CHEST 1 VIEW, AP/PA ONLY CLINICAL INDICATION: Patient with chest pain and numbness radiating down left arm today. EXAM: Portable chest x-ray, upright view. COMPARISONS: Chest x-ray dated 07/11/2017. FINDINGS: Lungs/pleura: Lungs are clear. There is no pneumothorax. There is no pleural effusion. Mediastinum: Unremarkable. Pulmonary vasculature: Unremarkable. Heart: Unremarkable. Bones/extrathoracic soft tissue: Unremarkable. IMPRESSION: There is no radiographic evidence of acute cardiopulmonary process. Dictated on workstation # [id number] Dict: 07/11/18 1430 Trans: 07/11/18 1433 [id number] Interpreted by: IKER LORENZ MD Electronically signed by: Departure Communication (Admissions) Time/Spoke to Admitting Phy: 17:35 Time/Spoke to Consulting Phy: 17:30 Impression Primary Impression: Chest pain Qualified Codes: R07.9 - Chest pain, unspecified Disposition: 09 ADMITTED INPATIENT Condition: Stable Admissions Decision to Admit Reason: Admit from ER (General) Decision to Admit/Date: Jul 11, 2018 Time/Decision to Admit Time: 17:30 Departure-Patient Inst. Referrals: MARTHA LARSON MD (PCP/Family) Primary Care Physician NILO EASON MD Jul 11, 2018 14:36
[2018-07-11 14:43] LABS: ALANINE AMINOTRANSFERASE 32 U/L (0-55); ALBUMIN 4.5 GM/DL (3.2-4.5); ALKALINE PHOSPHATASE 96 U/L (40-136); BILIRUBIN,TOTAL 0.4 MG/DL (0.1-1.0); BUN/CREATININE RATIO 10; CALCIUM 9.8 MG/DL (8.5-10.1); CARBON DIOXIDE 29 MMOL/L (21-32); CHLORIDE 100 MMOL/L (98-107); GFR ESTIMATED > 60; GLUCOSE 120 MG/DL (70-105); LIPASE 11 U/L (8-78); MAGNESIUM 2.1 MG/DL (1.8-2.4); POTASSIUM 3.5 MMOL/L (3.6-5.0); SODIUM 139 MMOL/L (135-145); TOTAL PROTEIN 7.5 GM/DL (6.4-8.2)
[2018-07-11 14:50] LABS: MYOGLOBIN SERUM 21.2 NG/ML (10.0-92.0)
[2018-07-11] MEDS ORDERED: morphine INJ 10 MG/ML 1ML (SYR OR VIAL) IVP STA (15:29)
[2018-07-11 17:06] LABS: MYOGLOBIN SERUM 238.6 NG/ML (10.0-92.0)
[2018-07-11] MEDS ORDERED: ASPIRIN 81 MG CHEW (CHILDREN'S ASA) ONE (17:26)
[2018-07-11] MEDS ORDERED: HEParin DRIP 25000 UNIT/500ML 500 ML IV ONE (17:34)
[2018-07-11] MEDS ORDERED: HEParin 1000 UNIT/ML (10ML VIAL) FOR BOLUS IV ONE (17:34)
[2018-07-11] MEDS ORDERED: TICAGRELOR 90 MG TABLET (BRILINTA) PO ONE (17:45)
--- OUTSIDE RECORDS SUMMARY | 2018-07-11 18:15 | XMS REPORT | Encounter Summary ---
Author Author [facility] Organization [facility] Address Unknown Phone Unavailable Care Team Providers Care Home Lighting Adviser Name Role Phone Jayro Duran MD 21 John Flowers MD PCP Reason for Referral * Consult, Test & Treat (Routine) Status Reason Specialty Diagnoses / Referred By Referred To Procedures Contact Contact No Auth Needed Specialty Anesthesia Pain Diagnoses Emile Egan Spn Anes Pain Services Reflex MD Cricket Cl Required sympathetic [address] RANDY Lopez MD dystrophy [facility] [place] [address] [place], [place] [phone] Phone: Fax: Reason for Visit * Reason Comments Results Encounter Details Date Type Department Care Team Description 04/11/2018 Telephone [facility] Mehul Persaud MD Results Physicians - Internal [address] [facility] [place] [address] [facility] Level [address] [place] [address] Social History Tobacco Use Types [...]
--- OUTSIDE RECORDS SUMMARY | 2018-07-11 18:15 | XMS REPORT | Encounter Summary ---
Author Author [facility] Address Unknown Phone Unavailable Care Team Providers Care Aging Box Hand Name Role Phone Jayro Duran MD 21 John Flowers MD PCP Reason for Visit * Reason Comments Pain Pain * Consult, Test & Treat (Routine) Status Reason Specialty Diagnoses / Referred By Referred To Procedures Contact Contact No Auth Needed Specialty Anesthesia Pain Diagnoses Emile Egan Spn Anes Pain Services Reflex MD Cricket Cl Required sympathetic [address] [facility] [place] [address] [place] [address] Phone: Fax: Encounter Details Date Type Department Care Team Description 06/05/2018 Office Visit [facility] Emile Egan , Complex regional pain 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 Scheduling: Our scheduling phone number is [phone]. How to get a medication refill: Five business days before refill needed, please use the SmartCup Refill request or contact your pharmacy directly to request medication refills. How to receive your test results: If you have signed up for [employer], you will receive your test results and messages from me this way. Otherwise, you will get a phone call or letter. If you are expecting results and have not heard from my office within 2 weeks of your testing, please send a SmartCup message or call my office. Support for many chronic illnesses is available through [employer]: [employer] or [phone]. For questions on nights, weekends or holidays, call the pharmaceutical plant operator at [phone], and ask for the doctor visual presentation manager for Anesthesia Pain Management. 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 Successful PCI with a Resolute Integrity 2.5 x 26 mm stent to the OM with Dr. Rhoades. Unsuccessful PCI to the RCA ACQUISITION CONSULTANT. Pt referred to Dr. Warner for possible ACQUISITION CONSULTANT procedure. 08/06/16 - Nuclear stress test ([facility]): No ischemia or arrhythmia on EKG. Diaphragmatic attenuation with reversible ischemia involving the mid to apic Ischemic cardiomyopathy Mild mitral regurgitation 08/07/2017 Mild tricuspid regurgitation 08/07/2017 NSTEMI (non-ST elevated myocardial infarction) ([facility]) 08/07/2017 Protein S deficiency ([facility]) 08/07/2017 Tobacco abuse 08/07/2017 Family History: History reviewed. No pertinent family history. 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 who presents [...]
--- OUTSIDE RECORDS SUMMARY | 2018-07-11 18:15 | XMS REPORT | Clinical Summary ---
Author Author [facility] Organization [facility] Address Unknown Phone Unavailable Care Team Providers Care Grocery Checker Name Role Phone Jayro Duran MD 21 John Flowers MD PCP Source Comments Some departments are not documenting in the electronic medical record. If you do not see the information that you expected, contact Release of Information in the Health Information Management department at [phone] for further assistance in locating additional records.[facility] Allergies Active Allergy Reactions Severity Noted [...] by mouth Active mg tablet twice daily. [place]-3 Acid Ethyl Esters Take 1 g by [...] artery disease) 08/12/2017 Coronary artery disease involving chilkat coronary artery of chilkat heart with angina pectoris (HCC) Overview: 07/12/17 - NSTEMI at [place], [place]. Successful PCI with a Resolute Integrity 2.5 x 26 mm stent to the OM with Dr. Rhoades. Unsuccessful PCI to the RCA HOT STRIP MILL INSPECTOR. Pt referred to Dr. Warner for possible HOT STRIP MILL INSPECTOR procedure. 08/06/16 - Nuclear stress test ([facility]): No ischemia or arrhythmia on EKG. Diaphragmatic attenuation with reversible ischemia involving the mid to apical inferior wall and inferolateral wall. Normal left ventricular size with mild hypokinesis at the lateral wall. EF 50%. Previous history of Promus stent placement to OM - date unknown. NSTEMI (non-ST elevated myocardial infarction) (HCC) 08/07/2017 Overview: 07/12/17 at [facility] in [place], [place]. Tobacco abuse 08/07/2017 Ischemic cardiomyopathy 08/07/2017 Overview: 07/12/17 - Echo ([facility]): EF 30-35%. 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
--- OUTSIDE RECORDS SUMMARY | 2018-07-11 18:21 | XMS REPORT | Continuity of Care Document ---
Author Author [facility] Address Unknown Phone Unavailable Allergies Active Description Code Type Severity Reaction Onset Reported/Identified Relationship to Patient Clinical Status Yes PENICILLINS MODERATE OTHER Yes Penicillins [id number] Drug Allergy Mild N/A 01/27/2009 Yes Penicillins [...] INFARCT 09/24/2012 Ot 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[place] CORON 09/24/2012 Ot 786.50 CHEST PAIN NOS [...] MD Ot 274.9 GOUT NOS 04/01/2015 JOHN OMNDRAGON MD Ot 729.5 PAIN IN LIMB 04/01/2015 [...] NOS 01/22/2016 Ot 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[place] CORON 01/22/2016 Ot 401.9 HYPERTENSION NOS 01/22/2016 Ot 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[place] CORON 01/22/2016 Ot 428.0 CONGESTIVE HEART FAILURE NOS 01/22/2016 Ot 719.40 JOINT PAIN- UNSPEC 01/22/2016 Ot 782.3 EDEMA 01/22/2016 Ot V58.61 ANTICOAGULANTS,LT,CURRENT USE 01/22/2016 VIANEY SWEET ACTUARIAL ASSISTANT Ot F17.210 NICOTINE DEPENDENCE, CIGARETTES, UNCOMPL 01/22/2016 VIAENY SWEET ACTUARIAL ASSISTANT Ot M25.511 PAIN IN RIGHT SHOULDER 02/24/2016 JEFFERY DE SOUZA MD Ot I82.403 ACUTE EMBOLISM AND THOMBOS UNSP DEEP VEI 02/24/2016 JEFFERY DE SOUZA MD Ot Z79.01 HALFWAY (CURRENT) USE OF ANTICOAGULANT 04/09/2016 JEFFERY DE SOUZA MD Ot I82.403 ACUTE EMBOLISM AND THOMBOS UNSP DEEP VEI 04/09/2016 JEFFERY DE SOUZA MD Ot 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 05/22/2016 JEFFERY DE SOUZA MD Ot I82.403 ACUTE EMBOLISM AND THOMBOS UNSP DEEP VEI 05/22/2016 JEFFERY DE SOUZA MD Ot 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 06/01/2016 Ot 414.00 CORON ATHEROSCLER NOS TYPE VESSEL, NATIV 06/01/2016 Ot 786.50 CHEST PAIN NOS 06/01/2016 Ot 397.0 TRICUSPID VALVE DISEASE 06/01/2016 Ot 414.00 CORON ATHEROSCLER NOS TYPE VESSEL, NATIV 06/01/2016 Ot 424.0 MITRAL VALVE DISORDER 06/01/2016 Ot 786.50 CHEST PAIN NOS 06/01/2016 Ot 272.4 HYPERLIPIDEMIA NEC/NOS 06/01/2016 Ot 401.9 HYPERTENSION NOS 06/01/2016 Ot 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[place] CORON 06/01/2016 Ot 401.9 HYPERTENSION NOS 06/01/2016 Ot 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[place] CORON 06/01/2016 Ot 428.0 CONGESTIVE HEART FAILURE NOS 06/01/2016 Ot 719.40 JOINT PAIN- UNSPEC 06/01/2016 Ot 782.3 EDEMA 06/01/2016 Ot V58.61 ANTICOAGULANTS,LT,CURRENT USE 06/04/2016 JEFFERY DE SOUZA MD Ot I82.403 ACUTE EMBOLISM AND THOMBOS UNSP DEEP VEI 06/04/2016 JEFFERY DE SOUZA MD Ot Z79.01 HALFWAY (CURRENT) USE OF ANTICOAGULANT 07/16/2016 JEFFERY DE SOUZA MD Ot I82.403 ACUTE EMBOLISM AND THOMBOS UNSP DEEP VEI 07/16/2016 JEFFERY DE SOUZA MD Ot Z79.01 HALFWAY (CURRENT) USE OF ANTICOAGULANT 07/26/2016 Ot 414.00 CORON ATHEROSCLER NOS TYPE VESSEL, NATIV 07/26/2016 Ot 786.50 CHEST PAIN NOS 07/26/2016 Ot 397.0 TRICUSPID VALVE DISEASE 07/26/2016 Ot 414.00 CORON ATHEROSCLER NOS TYPE VESSEL, NATIV 07/26/2016 Ot 424.0 MITRAL VALVE DISORDER 07/26/2016 Ot 786.50 CHEST PAIN NOS 07/26/2016 Ot 272.4 HYPERLIPIDEMIA NEC/NOS 07/26/2016 Ot 401.9 HYPERTENSION NOS 07/26/2016 Ot 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[place] CORON 07/26/2016 Ot 401.9 HYPERTENSION NOS 07/26/2016 Ot 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[place] CORON 07/26/2016 Ot 428.0 CONGESTIVE HEART FAILURE NOS 07/26/2016 Ot 719.40 JOINT PAIN- UNSPEC 07/26/2016 Ot 782.3 EDEMA 07/26/2016 Ot V58.61 ANTICOAGULANTS,LT,CURRENT USE 07/26/2016 JEFFERY DE SOUZA MD Ot I82.403 ACUTE EMBOLISM AND THOMBOS UNSP DEEP VEI 07/26/2016 JEFFERY DE SOUZA MD Ot 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 07/27/2016 JEFFERY DE SOUZA MD Ot I11.0 HYPERTENSIVE HEART DISEASE WITH HEART FA 07/27/2016 JEFFERY DE SOUZA MD Ot I25.10 ATHSCL HEART DISEASE OF [place] CORONARY 07/27/2016 JEFFERY DE SOUZA MD Ot [...] NOS 08/06/2016 Ot 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[place] CORON 08/06/2016 Ot 401.9 HYPERTENSION NOS 08/06/2016 Ot 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[place] CORON 08/06/2016 Ot 428.0 CONGESTIVE HEART FAILURE NOS 08/06/2016 Ot 719.40 JOINT PAIN- UNSPEC 08/06/2016 Ot 782.3 EDEMA 08/06/2016 Ot V58.61 ANTICOAGULANTS,LT,CURRENT USE 08/06/2016 JEFFERY DE SOUZA MD Ot I82.403 ACUTE EMBOLISM AND THOMBOS UNSP DEEP VEI 08/06/2016 JEFFERY DE SOUZA MD Ot Z79.01 HALFWAY (CURRENT) USE OF ANTICOAGULANT 08/06/2016 JEFFERY DE SOUZA MD Ot I11.0 HYPERTENSIVE HEART DISEASE WITH HEART FA 08/06/2016 JEFFERY DE SOUZA MD Ot I25.10 ATHSCL HEART DISEASE OF [place] CORONARY 08/06/2016 JEFFERY DE SOUZA MD Ot I26.99 OTHER PULMONARY EMBOLISM WITHOUT ACUTE C 08/06/2016 JEFFERY DE SOUZA MD Ot I50.9 HEART FAILURE, UNSPECIFIED 08/06/2016 JEFFERY DE SOUZA MD Ot I82.409 ACUTE EMBOLISM AND THOMBOS UNSP DEEP VN 08/06/2016 JEFFERY DE SOUZA MD Ot R07.9 CHEST PAIN, UNSPECIFIED 08/07/2016 JEFFERY DE SOUZA MD Ot I25.10 ATHSCL HEART DISEASE OF [place] CORONARY 08/07/2016 JEFFERY DE SOUZA MD Ot I50.9 HEART FAILURE, UNSPECIFIED 08/07/2016 JEFFERY DE SOUZA MD Ot R07.9 CHEST PAIN, UNSPECIFIED 08/07/2016 JEFFERY DE SOUZA MD Ot I25.10 ATHSCL HEART DISEASE OF [place] CORONARY 08/07/2016 JEFFERY DE SOUZA MD Ot [...] NOS 08/08/2016 Ot 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[place] CORON 08/08/2016 Ot 401.9 HYPERTENSION NOS 08/08/2016 Ot 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[place] CORON 08/08/2016 Ot 428.0 CONGESTIVE HEART FAILURE NOS 08/08/2016 Ot 719.40 JOINT PAIN- UNSPEC 08/08/2016 Ot 782.3 EDEMA 08/08/2016 Ot V58.61 ANTICOAGULANTS,LT,CURRENT USE 08/08/2016 JEFFERY DE SOUZA MD Ot I82.403 ACUTE EMBOLISM AND THOMBOS UNSP DEEP VEI 08/08/2016 JEFFERY DE SOUZA MD Ot Z79.01 HALFWAY (CURRENT) USE OF ANTICOAGULANT 08/08/2016 JEFFERY DE SOUZA MD Ot I11.0 HYPERTENSIVE HEART DISEASE WITH HEART FA 08/08/2016 JEFFERY DE SOUZA MD Ot I25.10 ATHSCL HEART DISEASE OF [place] CORONARY 08/08/2016 JEFFERY DE SOUZA MD Ot I26.99 OTHER PULMONARY EMBOLISM WITHOUT ACUTE C 08/08/2016 JEFFERY DE SOUZA MD Ot I50.9 HEART FAILURE, UNSPECIFIED 08/08/2016 JEFFERY DE SOUZA MD Ot I82.409 ACUTE EMBOLISM AND THOMBOS UNSP DEEP VN 08/08/2016 JEFFERY DE SOUZA MD Ot R07.9 CHEST PAIN, UNSPECIFIED 08/08/2016 JEFFERY DE SOUZA MD Ot I25.10 ATHSCL HEART DISEASE OF [place] CORONARY 08/08/2016 JEFFERY DE SOUZA MD Ot I50.9 HEART FAILURE, UNSPECIFIED 08/08/2016 JEFFERY DE SOUZA MD Ot R07.9 CHEST PAIN, UNSPECIFIED 08/08/2016 JEFFERY DE SOUZA MD Ot I11.0 HYPERTENSIVE HEART DISEASE WITH HEART FA 08/08/2016 JEFFERY DE SOUZA MD Ot I25.10 ATHSCL HEART DISEASE OF [place] CORONARY 08/08/2016 JEFFERY DE SOUZA MD Ot [...] MD Ot I25.10 ATHSCL HEART DISEASE OF [place] CORONARY 08/08/2016 JEFFERY DE SOUZA MD Ot R07.89 OTHER CHEST PAIN 08/08/2016 JEFFERY DE SOUZA MD Ot R94.39 ABNORMAL RESULT OF OTHER CARDIOVASCULAR 08/08/2016 JEFFERY DE SOUZA MD Ot Z79.01 HALFWAY (CURRENT) USE OF ANTICOAGULANT 08/08/2016 JEFFERY DE SOUZA MD Ot Z79.899 OTHER RADIOACTIVE WASTE DISPOSAL DISPATCHER (CURRENT) DRUG THERAPY 08/08/2016 JEFFERY DE SOUZA MD Ot Z86.718 PERSONAL HISTORY OF OTHER VENOUS THROMBO 08/08/2016 JEFFERY DE SOUZA MD Ot Z95.5 PRESENCE OF CORONARY ANGIOPLASTY IMPLANT 08/12/2016 JEFFERY DE SOUZA MD Ot I25.10 ATHSCL HEART DISEASE OF [place] CORONARY 08/12/2016 JEFFERY DE SOUZA MD Ot I50.9 HEART FAILURE, UNSPECIFIED 08/12/2016 JEFFERY DE SOUZA MD Ot R07.9 CHEST PAIN, UNSPECIFIED 08/22/2016 JEFFERY DE SOUZA MD Ot I25.10 ATHSCL HEART DISEASE OF [place] CORONARY 08/22/2016 JEFFERY DE SOUZA MD Ot I50.9 HEART FAILURE, UNSPECIFIED 08/22/2016 JEFFERY DE SOUZA MD Ot R07.9 CHEST PAIN, UNSPECIFIED 08/30/2016 JEFFERY DE SOUZA MD Ot I82.403 ACUTE EMBOLISM AND THOMBOS UNSP DEEP VEI 08/30/2016 JEFFERY DE SOUZA MD Ot Z79.01 HALFWAY (CURRENT) USE OF ANTICOAGULANT 08/31/2016 JEFFERY DE SOUZA MD Ot I82.403 ACUTE EMBOLISM AND THOMBOS UNSP DEEP VEI 08/31/2016 JEFFERY DE SOUZA MD Ot 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 09/13/2016 JEFFERY DE SOUZA MD Ot I82.403 ACUTE EMBOLISM AND THOMBOS UNSP DEEP VEI 09/13/2016 JEFFERY DE SOUZA MD Ot Z79.01 HALFWAY (CURRENT) USE OF ANTICOAGULANT 09/13/2016 JEFFERY DE SOUZA MD Ot I82.403 ACUTE EMBOLISM AND THOMBOS UNSP DEEP VEI 09/13/2016 JEFFERY DE SOUZA MD Ot 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 09/14/2016 JEFFERY DE SOUZA MD Ot I82.403 ACUTE EMBOLISM AND THOMBOS UNSP DEEP VEI 09/14/2016 JEFFERY DE SOUZA MD Ot 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 10/10/2016 JEFFERY DE SOUZA MD Ot I82.403 ACUTE EMBOLISM AND THOMBOS UNSP DEEP VEI 10/10/2016 JEFFERY DE SOUZA MD Ot 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 11/09/2016 JEFFERY DE SOUZA MD Ot I82.403 ACUTE EMBOLISM AND THOMBOS UNSP DEEP VEI 11/09/2016 JEFFERY DE SOUZA MD Ot Z79.01 HALFWAY (CURRENT) USE OF ANTICOAGULANT 12/11/2016 JEFFERY DE SOUZA MD Ot I82.403 ACUTE EMBOLISM AND THOMBOS UNSP DEEP VEI 12/11/2016 JEFFERY DE SOUZA MD Ot 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 12/12/2016 JEFFERY DE SOUZA MD Ot I82.403 ACUTE EMBOLISM AND THOMBOS UNSP DEEP VEI 12/12/2016 JEFFERY DE SOUZA MD Ot Z79.01 HALFWAY (CURRENT) USE OF ANTICOAGULANT 01/09/2017 Ot 414.00 CORON ATHEROSCLER NOS TYPE VESSEL, NATIV 01/09/2017 Ot 786.50 CHEST PAIN NOS 01/09/2017 Ot 397.0 TRICUSPID VALVE DISEASE 01/09/2017 Ot 414.00 CORON ATHEROSCLER NOS TYPE VESSEL, NATIV 01/09/2017 Ot 424.0 MITRAL VALVE DISORDER 01/09/2017 Ot 786.50 CHEST PAIN NOS 01/09/2017 Ot 272.4 HYPERLIPIDEMIA NEC/NOS 01/09/2017 Ot 401.9 HYPERTENSION NOS 01/09/2017 Ot 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[place] CORON 01/09/2017 Ot 401.9 HYPERTENSION NOS 01/09/2017 Ot 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[place] CORON 01/09/2017 Ot 428.0 CONGESTIVE HEART FAILURE NOS 01/09/2017 Ot 719.40 JOINT PAIN- UNSPEC 01/09/2017 Ot 782.3 EDEMA 01/09/2017 Ot V58.61 ANTICOAGULANTS,LT,CURRENT USE 01/09/2017 JEFFERY DE SOUZA MD Ot I11.0 HYPERTENSIVE HEART DISEASE WITH HEART FA 01/09/2017 JEFFERY DE SOUZA MD Ot I25.10 ATHSCL HEART DISEASE OF [place] CORONARY 01/09/2017 JEFFERY DE SOUZA MD Ot I26.99 OTHER PULMONARY EMBOLISM WITHOUT ACUTE C 01/09/2017 JEFFERY DE SOUZA MD Ot I50.9 HEART FAILURE, UNSPECIFIED 01/09/2017 JEFFERY DE SOUZA MD Ot I82.409 ACUTE EMBOLISM AND THOMBOS UNSP DEEP VN 01/09/2017 JEFFERY DE SOUZA MD Ot R07.9 CHEST PAIN, UNSPECIFIED 01/09/2017 JEFFERY DE SOUZA MD Ot I25.10 ATHSCL HEART DISEASE OF [place] CORONARY 01/09/2017 JEFFERY DE SOUZA MD Ot I50.9 HEART FAILURE, UNSPECIFIED 01/09/2017 JEFFERY DE SOUZA MD Ot R07.9 CHEST PAIN, UNSPECIFIED 01/09/2017 ROCHELLE OLIVER Ot F17.210 NICOTINE DEPENDENCE, CIGARETTES, UNCOMPL 01/09/2017 ROCHELLE OLIVER Ot R10.10 UPPER ABDOMINAL PAIN, UNSPECIFIED 01/09/2017 ROCHELLE OLIVER Ot R10.13 EPIGASTRIC PAIN 01/09/2017 ROCHELLE OLIVER Ot 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 01/09/2017 ROCHELLE OLIVER Ot Z79.82 RADIOACTIVE WASTE DISPOSAL DISPATCHER (CURRENT) USE OF ASPIRIN 01/09/2017 ROCHELLE OLIVER Ot Z79.899 OTHER HALFWAY (CURRENT) DRUG THERAPY 01/09/2017 ROCHELLE OLIVER Ot Z95.5 PRESENCE OF CORONARY ANGIOPLASTY IMPLANT 01/11/2017 ROCHELLE OLIVER Ot F17.210 NICOTINE DEPENDENCE, CIGARETTES, UNCOMPL 01/11/2017 ROCHELLE OLIVER Ot R10.10 UPPER ABDOMINAL PAIN, UNSPECIFIED 01/11/2017 ROCHELLE OLIVER Ot R10.13 EPIGASTRIC PAIN 01/11/2017 ROCHELLE OLIVER Ot 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 01/11/2017 ROCHELLE OLIVER Ot Z79.82 HALFWAY (CURRENT) USE OF ASPIRIN 01/11/2017 ROCHELLE OLIVER Ot Z79.899 OTHER HALFWAY (CURRENT) DRUG THERAPY 01/11/2017 ROCHELLE OLIVER Ot Z95.5 PRESENCE OF CORONARY ANGIOPLASTY IMPLANT 01/29/2017 JEFFERY DE SOUZA MD Ot I82.403 ACUTE EMBOLISM AND THOMBOS UNSP DEEP VEI 01/29/2017 JEFFERY DE SOUZA MD Ot Z79.01 HALFWAY (CURRENT) USE OF ANTICOAGULANT 01/31/2017 Ot 414.00 CORON ATHEROSCLER NOS TYPE VESSEL, NATIV 01/31/2017 Ot 786.50 CHEST PAIN NOS 01/31/2017 Ot 397.0 TRICUSPID VALVE DISEASE 01/31/2017 Ot 414.00 CORON ATHEROSCLER NOS TYPE VESSEL, NATIV 01/31/2017 Ot 424.0 MITRAL VALVE DISORDER 01/31/2017 Ot 786.50 CHEST PAIN NOS 01/31/2017 Ot 272.4 HYPERLIPIDEMIA NEC/NOS 01/31/2017 Ot 401.9 HYPERTENSION NOS 01/31/2017 Ot 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[place] CORON 01/31/2017 Ot 401.9 HYPERTENSION NOS 01/31/2017 Ot 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[place] CORON 01/31/2017 Ot 428.0 CONGESTIVE HEART FAILURE NOS 01/31/2017 Ot 719.40 JOINT PAIN- UNSPEC 01/31/2017 Ot 782.3 EDEMA 01/31/2017 Ot V58.61 ANTICOAGULANTS,LT,CURRENT USE 01/31/2017 JEFFERY DE SOUZA MD Ot I11.0 HYPERTENSIVE HEART DISEASE WITH HEART FA 01/31/2017 JEFFERY DE SOUZA MD Ot I25.10 ATHSCL HEART DISEASE OF [place] CORONARY 01/31/2017 JEFFERY DE SOUZA MD Ot I26.99 OTHER PULMONARY EMBOLISM WITHOUT ACUTE C 01/31/2017 JEFFERY DE SOUZA MD Ot I50.9 HEART FAILURE, UNSPECIFIED 01/31/2017 JEFFERY DE SOUZA MD Ot R07.9 CHEST PAIN, UNSPECIFIED 01/31/2017 JEFFERY DE SOUZA MD Ot I25.10 ATHSCL HEART DISEASE OF [place] CORONARY 01/31/2017 JEFFERY DE SOUZA MD Ot I50.9 HEART FAILURE, UNSPECIFIED 01/31/2017 JEFFERY DE SOUZA MD Ot R07.9 CHEST PAIN, UNSPECIFIED 03/08/2017 JEFFERY DE SOUZA MD Ot I82.403 ACUTE EMBOLISM AND THOMBOS UNSP DEEP VEI 03/08/2017 JEFFERY DE SOUZA MD Ot Z79.01 HALFWAY (CURRENT) USE OF ANTICOAGULANT 04/02/2017 JEFFERY DE SOUZA MD Ot I82.403 ACUTE EMBOLISM AND THOMBOS UNSP DEEP VEI 04/02/2017 JEFFERY DE SOUZA MD Ot Z79.01 HALFWAY (CURRENT) USE OF ANTICOAGULANT 04/03/2017 JEFFERY DE SOUZA MD Ot I82.403 ACUTE EMBOLISM AND THOMBOS UNSP DEEP VEI 04/03/2017 JEFFERY DE SOUZA MD Ot Z79.01 HALFWAY (CURRENT) USE OF ANTICOAGULANT 04/10/2017 JEFFERY DE [...] RIGHT ARM 04/13/2017 ROCHELLE OLIVER Ot Z79.01 HALFWAY (CURRENT) USE OF ANTICOAGULANT 04/13/2017 ROCHELLE OLIVER Ot Z79.82 RADIOACTIVE WASTE DISPOSAL DISPATCHER (CURRENT) USE OF ASPIRIN 04/13/2017 ROCHELLE OLIVER [...] JEFFERY DE SOUZA MD Ot Z79.899 OTHER HALFWAY (CURRENT) DRUG THERAPY 05/25/2017 JEFFERY DE SOUZA MD Ot I26.99 OTHER PULMONARY EMBOLISM WITHOUT ACUTE C 05/25/2017 JEFFERY DE SOUZA MD Ot Z51.81 ENCOUNTER FOR THERAPEUTIC DRUG LEVEL MON 05/25/2017 JEFEFRY DE SOUZA MD Ot Z79.899 OTHER RADIOACTIVE WASTE DISPOSAL DISPATCHER (CURRENT) DRUG THERAPY 05/31/2017 JEFFERY DE SOUZA MD Ot I26.99 OTHER PULMONARY EMBOLISM WITHOUT ACUTE C 05/31/2017 JEFFERY DE SOUZA MD Ot Z51.81 ENCOUNTER FOR THERAPEUTIC DRUG LEVEL MON 05/31/2017 JEFFERY DE SOUZA MD Ot Z79.899 OTHER HALFWAY (CURRENT) DRUG THERAPY 07/11/2017 SONIYA JAMES DO [...] DOI Ot I25.10 ATHSCL HEART DISEASE OF [place] CORONARY 07/11/2017 MAGALYS JAMES DOI Ot 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 07/11/2017 MAGALYS JAMES DOI Ot I50.20 UNSPECIFIED SYSTOLIC (CONGESTIVE) HEART 07/11/2017 SONIYA JAMES DO Ot K21.9 GASTRO-ESOPHAGEAL REFLUX DISEASE WITHOUT 07/11/2017 MAGALYS JAMES DOI Ot R06.2 WHEEZING 07/11/2017 SONIYA JAMES DO Ot Z79.01 HALFWAY (CURRENT) USE OF ANTICOAGULANT 07/11/2017 SONIYA JAMES [...] SONIYA Ot I25.10 ATHSCL HEART DISEASE OF [place] CORONARY 07/15/2017 ERIKA BECK SONIYA Ot 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 07/15/2017 ERIKA BECK SONIYA Ot I50.20 UNSPECIFIED SYSTOLIC (CONGESTIVE) HEART 07/15/2017 ERIKA BECK SONIYA Ot K21.9 GASTRO-ESOPHAGEAL REFLUX DISEASE WITHOUT 07/15/2017 ERIKA BECK SONIYA Ot R06.2 WHEEZING 07/15/2017 ERIKA BECK SONIYA Ot Z79.01 HALFWAY (CURRENT) USE OF ANTICOAGULANT 07/15/2017 ERIKA BECK [...] SONIYA Ot I25.10 ATHSCL HEART DISEASE OF [place] CORONARY 07/17/2017 ERIKA BECK SONIYA Ot 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 07/17/2017 ERIKA BECK SONIYA Ot I50.20 UNSPECIFIED SYSTOLIC (CONGESTIVE) HEART 07/17/2017 ERIKA BECK SONIYA Ot K21.9 GASTRO-ESOPHAGEAL REFLUX DISEASE WITHOUT 07/17/2017 ERIKA BECK SONIYA Ot R06.2 WHEEZING 07/17/2017 ERIKA BECK SONIYA Ot 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 07/17/2017 ERIKA BECK [...] NOS 08/02/2017 Ot 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[place] CORON 08/02/2017 Ot 401.9 HYPERTENSION NOS 08/02/2017 Ot 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[place] CORON 08/02/2017 Ot 428.0 CONGESTIVE HEART FAILURE NOS 08/02/2017 Ot 719.40 JOINT PAIN- UNSPEC 08/02/2017 Ot 782.3 EDEMA 08/02/2017 Ot V58.61 ANTICOAGULANTS,LT,CURRENT USE 08/02/2017 JEFFERY DE SOUZA MD Ot I11.0 HYPERTENSIVE HEART DISEASE WITH HEART FA 08/02/2017 JEFFERY DE SOUZA MD Ot I25.10 ATHSCL HEART DISEASE OF [place] CORONARY 08/02/2017 JEFFERY DE SOUZA MD Ot I26.99 OTHER PULMONARY EMBOLISM WITHOUT ACUTE C 08/02/2017 JEFFERY DE SOUZA MD Ot I50.9 HEART FAILURE, UNSPECIFIED 08/02/2017 JEFFERY DE SOUZA MD Ot R07.9 CHEST PAIN, UNSPECIFIED 08/02/2017 JEFFERY DE SOUZA MD Ot I25.10 ATHSCL HEART DISEASE OF [place] CORONARY 08/02/2017 JEFFERY DE SOUZA MD Ot I50.9 HEART FAILURE, UNSPECIFIED 08/02/2017 JEFFERY DE SOUZA MD Ot R07.9 CHEST PAIN, UNSPECIFIED 08/02/2017 JEFFERY DE SOUZA MD Ot I82.403 ACUTE EMBOLISM AND THOMBOS UNSP DEEP VEI 08/02/2017 JEFFERY DE SOUZA MD Ot 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 08/02/2017 JEFFERY DE [...] JEFFERY DE SOUZA MD Ot Z79.899 OTHER HALFWAY (CURRENT) DRUG THERAPY 08/02/2017 ROCHELLE OLIVER Ot [...] FACTORS, INI 08/02/2017 ROCHELLE OLIVER Ot Z79.01 HALFWAY (CURRENT) USE OF ANTICOAGULANT 08/02/2017 ROCHELLE OLIVER Ot Z79.82 HALFWAY (CURRENT) USE OF ASPIRIN 08/02/2017 ROCHELLE OLIVER Ot Z82.49 FAMILY HX OF ISCHEM HEART DIS AND OTH DI 08/02/2017 ROCHELLE OLIVER Ot Z95.5 PRESENCE OF CORONARY ANGIOPLASTY IMPLANT 08/06/2017 JEFFERY DE SOUZA MD Ot I26.99 OTHER PULMONARY EMBOLISM WITHOUT ACUTE C 08/06/2017 JEFFERY DE SOUZA MD Ot 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 08/06/2017 JEFFERY DE [...] NOS 08/09/2017 Ot 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[place] CORON 08/09/2017 Ot 401.9 HYPERTENSION NOS 08/09/2017 Ot 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[place] CORON 08/09/2017 Ot 428.0 CONGESTIVE HEART FAILURE NOS 08/09/2017 Ot 719.40 JOINT PAIN- UNSPEC 08/09/2017 Ot 782.3 EDEMA 08/09/2017 Ot V58.61 ANTICOAGULANTS,LT,CURRENT USE 08/09/2017 JEFFERY DE SOUZA MD Ot I11.0 HYPERTENSIVE HEART DISEASE WITH HEART FA 08/09/2017 JEFFERY DE SOUZA MD Ot I25.10 ATHSCL HEART DISEASE OF [place] CORONARY 08/09/2017 JEFFERY DE SOUZA MD Ot I26.99 OTHER PULMONARY EMBOLISM WITHOUT ACUTE C 08/09/2017 JEFFERY DE SOUZA MD Ot I50.9 HEART FAILURE, UNSPECIFIED 08/09/2017 JEFFERY DE SOUZA MD Ot R07.9 CHEST PAIN, UNSPECIFIED 08/09/2017 JEFFERY DE SOUZA MD Ot I25.10 ATHSCL HEART DISEASE OF [place] CORONARY 08/09/2017 JEFFERY DE SOUZA MD Ot I50.9 HEART FAILURE, UNSPECIFIED 08/09/2017 JEFFERY DE SOUZA MD Ot R07.9 CHEST PAIN, UNSPECIFIED 08/09/2017 JEFFERY DE SOUZA MD Ot I82.403 ACUTE EMBOLISM AND THOMBOS UNSP DEEP VEI 08/09/2017 JEFFERY DE SOUZA MD Ot Z79.01 HALFWAY (CURRENT) USE OF ANTICOAGULANT 08/09/2017 JEFFERY DE SOUZA MD Ot I26.99 OTHER PULMONARY EMBOLISM WITHOUT ACUTE C 08/09/2017 JEFFERY DE SOUZA MD Ot Z51.81 ENCOUNTER FOR THERAPEUTIC DRUG LEVEL MON 08/09/2017 JEFFERY DE SOUZA MD Ot I26.99 OTHER PULMONARY EMBOLISM WITHOUT ACUTE C 08/09/2017 JEFFERY DE SOUZA MD Ot Z79.01 HALFWAY (CURRENT) USE OF ANTICOAGULANT 08/09/2017 JEFFERY DE SOUZA MD Ot I50.9 HEART FAILURE, UNSPECIFIED 08/14/2017 JEFFERY DE SOUZA MD Ot I26.99 OTHER PULMONARY EMBOLISM WITHOUT ACUTE C 08/14/2017 JEFFERY DE SOUZA MD Ot Z79.01 HALFWAY (CURRENT) USE OF ANTICOAGULANT 08/22/2017 FREDRICK MCCAULEY MD Ot I25.119 ATHSCL HEART DISEASE OF [place] COR ART W 08/22/2017 GARRICK ENRIQUE, FREDRICK Londono Ot Z01.812 ENCOUNTER FOR PREPROCEDURAL LABORATORY E 08/24/2017 JEFFERY DE SOUZA MD Ot I26.99 OTHER PULMONARY EMBOLISM WITHOUT ACUTE C 08/24/2017 JEFFERY DE SOUZA MD, Ot 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 08/30/2017 JEFFERY DE SOUZA MD, Ot I26.99 OTHER PULMONARY EMBOLISM WITHOUT ACUTE C 08/30/2017 JEFFERY DE SOUZA MD, Ot 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 09/02/2017 JEFFERY DE SOUZA MD, Ot I26.99 OTHER PULMONARY EMBOLISM WITHOUT ACUTE C 09/02/2017 JEFFERY DE SOUZA MD, Ot 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 09/06/2017 JEFFERY DE SOUZA MD, Ot I10 ESSENTIAL (PRIMARY) HYPERTENSION 09/06/2017 JEFFERY DE SOUZA MD, Ot I25.10 ATHSCL HEART DISEASE OF [place] CORONARY 09/06/2017 JEFFERY DE SOUZA MD Ot [...] FOOT 09/15/2017 VIANEY SWEET APRN Ot Z79.01 [place] (CURRENT) USE OF ANTICOAGULANT 09/15/2017 VIANEY SWEET APRN Ot Z79.02 RADIOACTIVE WASTE DISPOSAL DISPATCHER (CURRENT) USE OF ANTITHROMBOTI 09/15/2017 VIANEY SWEET APRN Ot Z79.82 [place] (CURRENT) USE OF ASPIRIN 09/15/2017 VIANEY SWEET [...] FOOT 09/17/2017 VIANEY SWEET APRN Ot Z79.01 [place] (CURRENT) USE OF ANTICOAGULANT 09/17/2017 VIANEY SWEET APRN Ot Z79.02 RADIOACTIVE WASTE DISPOSAL DISPATCHER (CURRENT) USE OF ANTITHROMBOTI 09/17/2017 VIANEY SWEET APRN Ot Z79.82 [place] (CURRENT) USE OF ASPIRIN 09/17/2017 VIANEY SWEET APRN Ot Z82.49 FAMILY HX OF I[place]HE[place] HEART DIS AND OTH DI 09/17/2017 VIANEY SWEET APRN Ot Z86.718 PERSONAL HISTORY OF OTHER VENOUS THROMBO 09/17/2017 VIANEY SWEET APRN Ot Z95.5 PRESENCE OF CORONARY ANGIOPLASTY IMPLANT 09/18/2017 JEFFERY DE SOUZA MD Ot I10 ESSENTIAL (PRIMARY) HYPERTENSION 09/18/2017 JEFFERY DE SOUZA MD Ot I25.10 ATHSCL HEART DISEASE OF [place] CORONARY 09/18/2017 JEFFERY DE SOUZA MD Ot R06.00 DYSPNEA, UNSPECIFIED 09/18/2017 JEFFERY DE SOUZA MD Ot R07.89 OTHER CHEST PAIN 09/25/2017 TWAN ENRIQUE, FREDRICK Faulkner Ot E78.00 PURE HYPERCHOLESTEROLEMIA, UNSPECIFIED 09/25/2017 TWAN ENRIQUE, FREDRICK Faulkner Ot E78.5 HYPERLIPIDEMIA, UNSPECIFIED 09/25/2017 TWAN ENRIQUE, FREDRICK Faulkner Ot I11.0 HYPERTENSIVE HEART DISEASE WITH HEART FA 09/25/2017 TWAN ENRIQUE, FREDRICK Faulkner Ot I25.10 ATHSCL HEART DISEASE OF [place] CORONARY 09/25/2017 TWAN ENRIQUE, FREDRICK Faulkner Ot [...] NOS 10/04/2017 Ot 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[place] CORON 10/04/2017 Ot 401.9 HYPERTENSION NOS 10/04/2017 Ot 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[place] CORON 10/04/2017 Ot 428.0 CONGESTIVE HEART FAILURE NOS 10/04/2017 Ot 719.40 JOINT PAIN- UNSPEC 10/04/2017 Ot 782.3 EDEMA 10/04/2017 Ot V58.61 ANTICOAGULANTS,LT,CURRENT USE 10/04/2017 JEFFERY DE SOUZA MD Ot I11.0 HYPERTENSIVE HEART DISEASE WITH HEART FA 10/04/2017 JEFFERY DE SOUZA MD Ot I25.10 ATHSCL HEART DISEASE OF [place] CORONARY 10/04/2017 JEFFERY DE SOUZA MD Ot I26.99 OTHER PULMONARY EMBOLISM WITHOUT ACUTE C 10/04/2017 JEFFERY DE SOUZA MD Ot I50.9 HEART FAILURE, UNSPECIFIED 10/04/2017 JEFFERY DE SOUZA MD Ot R07.9 CHEST PAIN, UNSPECIFIED 10/04/2017 JEFFERY DE SOUZA MD Ot I25.10 ATHSCL HEART DISEASE OF [place] CORONARY 10/04/2017 JEFFERY DE SOUZA MD Ot I50.9 HEART FAILURE, UNSPECIFIED 10/04/2017 JEFFERY DE SOUZA MD Ot R07.9 CHEST PAIN, UNSPECIFIED 10/04/2017 JEFFERY DE SOUZA MD Ot I82.403 ACUTE EMBOLISM AND THOMBOS UNSP DEEP VEI 10/04/2017 JEFFERY DE SOUZA MD Ot Z79.01 [place] (CURRENT) USE OF ANTICOAGULANT 10/04/2017 JEFFERY DE SOUZA MD Ot I26.99 OTHER PULMONARY EMBOLISM WITHOUT ACUTE C 10/04/2017 JEFFERY DE SOUZA MD Ot Z51.81 ENCOUNTER FOR THERAPEUTIC DRUG LEVEL MON 10/04/2017 JEFFERY DE SOUZA MD Ot I50.9 HEART FAILURE, UNSPECIFIED 10/04/2017 JEFFERY DE SOUZA MD Ot I10 ESSENTIAL (PRIMARY) HYPERTENSION 10/04/2017 JEFFERY DE SOUZA MD Ot I25.10 ATHSCL HEART DISEASE OF [place] CORONARY 10/04/2017 JEFFERY DE SOUZA MD Ot R06.00 DYSPNEA, UNSPECIFIED 10/04/2017 JEFFERY DE SOUZA MD Ot R07.89 OTHER CHEST PAIN 10/04/2017 FREDRICK MCCAULEY MD Ot I25.119 ATHSCL HEART DISEASE OF [place] COR ART W 10/04/2017 FREDRICK MCCAULEY MD Ot Z01.812 ENCOUNTER FOR PREPROCEDURAL LABORATORY E 10/04/2017 NOLVIA MD, BASHAR J Ot I26.99 OTHER PULMONARY EMBOLISM WITHOUT ACUTE C 10/04/2017 JEFFERY DE SOUZA MD Ot 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 10/04/2017 JEFFERY DE SOUZA MD Ot M79.605 PAIN IN LEFT LEG 10/09/2017 JEFFERY DE SOUZA MD Ot I26.99 OTHER PULMONARY EMBOLISM WITHOUT ACUTE C 10/09/2017 JEFFERY DE SOUZA MD Ot Z79.01 HALFWAY (CURRENT) USE OF ANTICOAGULANT 10/09/2017 JEFFERY DE SOUZA MD Ot M79.605 PAIN IN LEFT LEG 10/18/2017 JEFFERY DE SOUZA MD Ot F17.200 NICOTINE DEPENDENCE, UNSPECIFIED, UNCOMP 10/18/2017 JEFFERY DE SOUZA MD Ot I10 ESSENTIAL (PRIMARY) HYPERTENSION 10/18/2017 JEFFERY DE SOUZA MD Ot I25.10 ATHSCL HEART DISEASE OF [place] CORONARY 10/18/2017 JEFFERY DE SOUZA MD Ot [...] MD Ot I25.10 ATHSCL HEART DISEASE OF [place] CORONARY 10/24/2017 JEFFERY DE SOUZA MD Ot [...] MD Ot I25.10 ATHSCL HEART DISEASE OF [place] CORONARY 10/25/2017 JEFFERY DE SOUZA MD Ot [...] MD Ot I25.10 ATHSCL HEART DISEASE OF [place] CORONARY 11/01/2017 JEFFERY DE SOUZA MD Ot [...] MD Ot I25.10 ATHSCL HEART DISEASE OF [place] CORONARY 11/08/2017 JEFFERY DE SOUZA MD Ot [...] MD Ot I25.10 ATHSCL HEART DISEASE OF [place] CORONARY 11/20/2017 JEFFERY DE SOUZA MD Ot [...] MD Ot I25.10 ATHSCL HEART DISEASE OF [place] CORONARY 11/27/2017 JEFFERY DE SOUZA MD Ot [...] 11/28/2017 JEFFERY DE SOUZA MD Ot Z79.01 HALFWAY (CURRENT) USE OF ANTICOAGULANT 11/29/2017 JEFFERY DE SOUZA MD Ot I26.99 OTHER PULMONARY EMBOLISM WITHOUT ACUTE C 11/29/2017 JEFFERY DE SOUZA MD Ot Z79.01 HALFWAY (CURRENT) USE OF ANTICOAGULANT 03/15/2018 JEFFERY DE SOUZA MD Ot I26.99 OTHER PULMONARY EMBOLISM WITHOUT ACUTE C 03/15/2018 JEFFERY DE SOUZA MD Ot Z79.01 HALFWAY (CURRENT) USE OF ANTICOAGULANT 03/15/2018 JEFFERY DE SOUZA MD Ot I26.99 OTHER PULMONARY EMBOLISM WITHOUT ACUTE C 03/15/2018 JEFFERY DE SOUZA MD Ot 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 04/22/2018 JEFFERY DE SOUZA MD Ot I26.99 OTHER PULMONARY EMBOLISM WITHOUT ACUTE C 04/22/2018 JEFFERY DE SOUZA MD Ot Z79.01 HALFWAY (CURRENT) USE OF ANTICOAGULANT 04/23/2018 JEFFERY DE SOUZA MD Ot I26.99 OTHER PULMONARY EMBOLISM WITHOUT ACUTE C 04/23/2018 JEFFERY DE SOUZA MD Ot 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 04/25/2018 JEFFERY DE SOUZA MD Ot I26.99 OTHER PULMONARY EMBOLISM WITHOUT ACUTE C 04/25/2018 JEFFERY DE SOUZA MD Ot Z79.01 HALFWAY (CURRENT) USE OF ANTICOAGULANT 05/28/2018 JEFFERY DE SOUZA MD Ot I26.99 OTHER PULMONARY EMBOLISM WITHOUT ACUTE C 05/28/2018 JEFFERY DE SOUZA MD, Ot Z79.01 HALFWAY (CURRENT) USE OF ANTICOAGULANT Procedures Code Description Performed By Performed On CARDIOLOG JEFFERY DE SOUZA 01/30/2014 [id number] DILATION OF 1 COR ART WITH DRUG-ELUT INT 07/12/2017 [id number] MEASURE OF CARDIAC SAMPL PRESSURE, L H 07/12/2017 [id number] FLUOROSCOPY OF MULT COR ART USING L OSM 07/12/2017 [id number] FLUOROSCOPY OF LEFT HEART USING LOW OSMO [...] platelet poor plasma by coagulation assay - 07/11/18 14:16 Prothrombin time (PT) in platelet poor plasma by coagulation assay 13.8 s 12.2-14.7 INR in platelet poor plasma or blood by coagulation assay 1.1 0.8-1.4 Activated partial thromboplastin time (aPTT) in platelet poor plasma bycoagulation assay - 07/11/18 14:16 Activated partial thromboplastin time (aPTT) in platelet poor plasma bycoagulation assay 32 s 24-35 Serum or plasma troponin i.cardiac [...] protein measurement (mass/volume) 0.31 mg /dL 0.00-0.50 Complete blood count (CBC) with automated white blood cell (WBC) differential - 07/11/18 14:16 Blood leukocytes automated count (number/volume) 10.7 10*3/uL 4.3-11.0 Blood erythrocytes automated count (number/volume) 5.04 10*6/uL 4.35-5.85 Venous blood hemoglobin measurement (mass/volume) 14.9 g/dL 13.3-17.7 Blood hematocrit (volume fraction) 44 % 40-54 Automated erythrocyte mean corpuscular volume 88 [foz_us] 80-99 Automated erythrocyte mean corpuscular hemoglobin (mass per erythrocyte) 30 pg 25-34 Automated erythrocyte mean corpuscular hemoglobin concentration measurement ( mass/volume) 34 g/dL 32-36 Automated erythrocyte distribution width ratio 14.0 % 10.0-14.5 Automated blood platelet count (count/volume) 362 10*3/uL 130-400 Automated blood platelet mean volume measurement 8.7 [foz_us] 7.4-10.4 Automated blood neutrophils/100 leukocytes 57 % 42-75 Automated blood lymphocytes/100 leukocytes 30 % 12-44 Blood monocytes/100 leukocytes 11 % 0-12 Automated blood eosinophils/100 leukocytes 3 % 0-10 Automated blood basophils/100 leukocytes 0 % 0-10 Blood neutrophils automated count (number/volume) 6.1 10*3 1.8-7.8 Blood lymphocytes automated count (number/volume) 3.2 10*3 1.0-4.0 Blood monocytes automated count (number/volume) 1.2 10*3 0.0-1.0 Automated eosinophil count 0.3 10*3/uL 0.0-0.3 Automated blood basophil count (count/volume) 0.0 10*3/uL 0.0-0.1 Comprehensive metabolic panel - 07/11/18 14:16 Serum or plasma sodium measurement (moles/volume) 139 mmol/L 135-145 Serum or plasma potassium measurement (moles/volume) 3.5 mmol/L 3.6-5.0 Serum or plasma chloride measurement (moles/volume) 100 mmol/L 98-107 Carbon dioxide 29 mmol/L 21-32 Serum or plasma anion gap determination (moles/volume) 10 mmol/L 5-14 Serum or plasma urea nitrogen measurement (mass/volume) 8 mg/dL 7-18 Serum or plasma creatinine measurement (mass/volume) 0.80 mg/dL 0.60-1.30 Serum or plasma urea nitrogen/creatinine mass ratio 10 NRG Serum or plasma creatinine measurement with calculation of estimated glomerular filtration rate > NRG Serum or plasma glucose measurement (mass/volume) 120 mg/dL 70-105 Serum or plasma calcium measurement (mass/volume) 9.8 mg/dL 8.5-10.1 Serum or plasma total bilirubin measurement (mass/volume) 0.4 mg/dL 0.1-1.0 Serum or plasma alkaline phosphatase measurement (enzymatic activity/volume) 96 U/L 40-136 Serum or plasma aspartate aminotransferase measurement (enzymatic activity/ volume) 32 U/L 5-34 Serum or plasma alanine aminotransferase measurement (enzymatic activity/volume ) 32 U/L 0-55 Serum or plasma protein measurement (mass/volume) 7.5 g/dL 6.4-8.2 Serum or plasma albumin measurement (mass/volume) 4.5 g/dL 3.2-4.5 CALCIUM CORRECTED 9.4 mg/dL 8.5-10.1 Magnesium - 07/11/18 14:16 Magnesium 2.1 mg/dL 1.8-2.4 Lipase - 07/11/18 14:16 Lipase 11 U/L 8-78 Encounters ACCT No. Visit Date/Time Discharge Status Pt. Type Provider Facility Loc./Unit Complaint [id number] 11/19/2014 09:47:00 11/19/2014 23:59:59 CLS Outpatient TRE SULTANA APRN [id number] 01/30/2014 12:54:00 01/30/2014 23:59:59 CLS Outpatient UTE PUTNAM APRN [id number] 11/25/2012 09:24:00 11/25/2012 23:59:59 CLS Outpatient CALVIN SCHERER DO [id number] 10/03/2017 10:36:00 10/03/2017 13:45:00 DIS Outpatient Breanna Castellano [id number] 10/03/2017 11:26:46 Document Registration [id number] 05/26/2018 00:54:00 05/26/2018 23:59:59 CLS Preadmit JEFFERY DE SOUZA MD [facility] LAB I26.99 [id number] 04/22/2018 12:38:00 04/25/2018 00:01:00 DIS Outpatient JEFFERY DE SOUZA MD [facility] LAB I26.99 [id number] 11/29/2017 00:17:00 11/29/2017 23:59:59 CLS Preadmit JEFFERY DE SOUZA MD [facility] LAB I26.99 [id number] 10/17/2017 09:38:00 11/28/2017 00:01:00 DIS Outpatient JEFFERY DE SOUZA MD [facility] LAB I26.99 [id number] 11/01/2017 11:00:00 11/01/2017 23:59:59 CLS Preadmit JEFFERY DE SOUZA MD Via [facility] [address] [id number] 09/04/2017 11:37:00 10/31/2017 00:01:00 DIS Outpatient JEFFERY DE SOUZA MD [facility] CR CHF [id number] 10/24/2017 10:36:00 10/24/2017 23:59:59 CLS Outpatient JEFFERY DE SOUZA MD [facility] LAB I25.10 [id number] 10/24/2017 10:27:00 10/24/2017 23:59:59 CLS Outpatient VIOLA CALDERON MD [facility] RAD M25.572 [id number] 10/17/2017 15:13:00 10/17/2017 23:59:59 CLS Outpatient JEFFERY DE SOUZA MD [facility] RAD ASDF [id number] 10/14/2017 11:45:00 10/14/2017 23:59:59 CLS Outpatient CÉSAR KILGORE MD [facility] WOUNDCARE [id number] 09/23/2017 00:55:00 09/25/2017 13:00:00 DIS Inpatient TWAN ENRIQUE, FREDRICK Faulkner [facility] 4TH CELLULITIS L LEG [id number] 09/17/2017 09:08:00 09/17/2017 23:59:59 CLS Outpatient JEFFERY DE SOUZA MD [facility] RAD LEFT LEG PAIN [id number] 09/15/2017 11:43:00 09/15/2017 15:31:00 DIS Emergency VIANEY SWEET APRN [facility] ER L LEG PAIN/SWELLING/HX BLOOD CLOTS [id number] 09/05/2017 10:30:00 09/05/2017 23:59:59 CLS Outpatient JEFFERY DE SOUZA MD [facility] CARD CAD, CHEST PAIN SYNDROME [id number] 05/26/2017 07:00:00 08/24/2017 00:01:00 DIS Outpatient JEFFERY DE SOUZA MD [facility] LAB I26.99 [id number] 08/09/2017 09:16:00 08/09/2017 23:59:59 CLS Outpatient FREDRICK MCCAULEY MD [facility] LAB Z01.812 I25.119 [id number] 08/02/2017 11:24:00 08/02/2017 11:53:00 DIS Emergency ROCHELLE OLIVER [facility] ER LUMP ON CHEST [id number] 07/11/2017 17:12:00 07/15/2017 14:45:00 DIS Inpatient SONIYA JAMES DO [facility] ICU CHEST PAIN,N/V [id number] 05/09/2017 10:49:00 05/25/2017 00:01:00 DIS Outpatient JEFFERY DE SOUZA MD [facility] LAB I26.99 [id number] 04/13/2017 15:07:00 04/13/2017 17:28:00 DIS Emergency ROCHELLE OLIVER [facility] ER SWELLING IN R ARM AFTER FLU SHOT [id number] 04/09/2017 10:55:00 04/09/2017 23:59:59 CLS Outpatient JEFFERY DE SOUZA MD [facility] LAB I26.99,Z51.81 [id number] 04/03/2017 00:08:00 04/03/2017 23:59:59 CLS Preadmit JEFFERY DE SOUZA MD [facility] LAB DVT [id number] 02/20/2017 11:24:00 04/02/2017 00:01:00 DIS Outpatient JEFFERY DE SOUZA MD [facility] LAB DVT [id number] 01/09/2017 17:21:00 01/09/2017 19:18:00 DIS Emergency ROCHELLE OLIVER [facility] ER LOWER CHEST PAIN [id number] 11/28/2016 08:17:00 12/11/2016 00:01:00 DIS Outpatient JEFFERY DE SOUZA MD [facility] LAB DVT [id number] 07/02/2016 13:09:00 08/30/2016 00:01:00 DIS Outpatient JEFFERY DE SOUZA MD [facility] LAB DVT [id number] 08/08/2016 10:25:00 08/08/2016 19:55:00 DIS Outpatient JEFFERY DE SOUZA MD [facility] CATH ABN STRESS,CP,CAD [id number] 08/06/2016 07:31:00 08/06/2016 23:59:59 CLS Outpatient JEFFERY DE SOUZA MD [facility] CARD CAD, CHF, CHEST PAIN SYNDROME, DVT, HTN, PE [id number] 07/26/2016 11:12:00 07/26/2016 23:59:59 CLS Outpatient JEFFERY DE SOUZA MD Via [facility] CAD, CHF, CHEST PAIN SYNDROME, DVT, HTN, PE [id number] 02/22/2016 13:12:00 05/22/2016 00:01:00 DIS Outpatient JEFFERY DE SOUZA MD [facility] LAB DVT [id number] 01/22/2016 14:55:00 01/22/2016 17:15:00 DIS Emergency VIANEY SWEET APRN [facility] ER R ARM PAIN [id number] 04/01/2015 09:29:00 05/25/2015 00:01:00 DIS Outpatient JEFFREY DE SOUZA MD [facility] LAB ANTICOAG THERAPY,HX PE [id number] 04/01/2015 08:34:00 04/01/2015 10:54:00 DIS Emergency JOHN MONDRAGON MD [facility] ER RIGHT FOOT PAIN/COUGH [id number] 10/27/2014 11:05:00 01/25/2015 00:01:00 DIS Outpatient JEFFERY DE SOUZA MD [facility] LAB ANTICOAG THERAPY,HX PE [id number] 06/01/2014 14:51:00 2014 00:01:00 DIS Outpatient JEFFERY DE SOUZA MD [facility] LAB ANTICOAG THERAPY,HX PE [id number] 12/07/2013 18:10:00 12/20/2013 00:01:00 DIS Outpatient JEFFERY DE SOUZA MD [facility] LAB ANTICOAG THERAPY,HX PE [id number] 05/03/2013 15:59:00 07/08/2013 00:01:00 DIS Outpatient JEFFERY DE SOUZA MD [facility] LAB ANTICOAG THERAPY,HX PE [id number] 01/09/2013 18:23:00 01/09/2013 19:22:00 DIS Emergency YVETTE ENRIQUE, MENDOZA Gruber [facility] ER LEFT ANKLE PAIN [id number] 07/11/2018 14:04:00 ACT Emergency JENARO ENRIQUE, NILO Faulkner [facility] ER CHEST PAIN [id number] 07/06/2015 09:36:00 Document Registration [id number] 07/06/2015 09:36:00 Document Registration [id number] 07/06/2015 09:36:00 Document Registration [id number] 07/06/2015 09:36:00 Document Registration [id number] 07/06/2015 09:36:00 Document Registration [id number] 07/06/2015 09:36:00 Document Registration [id number] 07/06/2015 09:36:00 Document Registration [id number] 07/06/2015 09:36:00 Document Registration [id number] 07/06/2015 09:36:00 Document Registration [id number] 07/06/2015 09:36:00 Document Registration [id number] 07/06/2015 09:36:00 Document Registration [id number] 07/06/2015 09:36:00 Document Registration [id number] 11/25/2014 10:38:00 Document Registration [id number] 11/25/2014 10:38:00 Document Registration [id number] 11/25/2014 10:37:00 Document Registration [id number] 11/25/2014 10:37:00 Document Registration [id number] 10/31/2014 21:35:00 Document Registration [id number] 12/02/2012 16:55:00 Document Registration [id number] 11/11/2012 08:29:00 Document Registration [id number] 10/14/2012 10:36:00 Document Registration [id number] 09/24/2012 07:36:00 Document Registration [id number] 09/17/2012 10:00:00 Document Registration [id number] 09/16/2012 13:04:00 Document Registration [id number] 07/27/2012 16:16:00 Document Registration [id number] 04/30/2012 21:41:00 Document Registration [id number] 04/02/2012 12:15:00 Document Registration [id number] 11/18/2011 13:43:00 Document Registration [id number] 06/04/2011 10:15:00 Document Registration [id number] 05/23/2011 06:51:00 Document Registration [id number] 05/19/2011 08:46:00 Document Registration [id number] 01/16/2011 10:21:00 Document Registration [id number] 11/26/2010 14:37:00 Document Registration [id number] 05/17/2010 09:40:00 Document Registration [id number] 01/18/2010 17:02:00 Document Registration [id number] 12/29/2009 09:19:00 Document Registration [id number] 08/04/2009 08:28:00 Document Registration [id number] 04/28/2009 13:16:00 Document Registration [id number] 06/09/2008 08:46:00 Document Registration [id number] 05/10/2008 12:11:00 Document Registration [id number] 03/25/2008 14:03:00 Document Registration [id number] 01/03/2008 08:26:00 Document Registration [id number] 11/20/2007 09:23:00 Document Registration [id number] 10/23/2007 11:12:00 Document Registration [id number] 10/02/2007 12:14:00 Document Registration [id number] 03/27/2007 10:33:00 Document Registration [id number] 01/07/2007 14:25:00 Document Registration [id number] 11/04/2006 08:46:00 Document Registration [id number] 10/08/2006 14:49:00 Document Registration [id number] 09/02/2006 07:21:00 Document Registration [id number] 08/16/2006 08:00:00 Document Registration [id number] 07/08/2006 08:52:00 Document Registration [id number] 06/19/2006 16:48:00 Document Registration [id number] 03/27/2006 11:44:00 Document Registration [id number] 03/04/2006 09:32:00 Document Registration [id number] 02/15/2006 08:15:00 Document Registration [id number] 12/05/2005 11:33:00 Document Registration [id number] 10/03/2005 11:41:00 Document Registration
[2018-07-11 18:55] VITALS: BP 121/85
[2018-07-11] MEDS ORDERED: ONDANSETRON 4 MG/2 ML (SDV) Z0FRAN IV PRN (19:00)
[2018-07-11] MEDS ORDERED: CATHETER FLUSH 10 ML SYR IV PRN (19:00)
[2018-07-11] MEDS ORDERED: morphine INJ 4 MG/ML 1 ML (VIAL/SYRINGE) IV PRN (19:00)
[2018-07-11 20:00] VITALS: BP 109/83
[2018-07-11] MEDS ORDERED: FLU QUADRIvalent (5+ YOA) 2018-2019 (AFLURIA) 0.5 ML IM ONE (20:00)
[2018-07-11 20:07] LABS: MYOGLOBIN SERUM 459.1 NG/ML (10.0-92.0)
[2018-07-11] MEDS: NS IV 1000 ML 1,000 ML IV SCH (22:01)
[2018-07-12] VITALS (18 sets, daily range): BP systolic 102–150; BP diastolic 57–92
[2018-07-12 03:36] LABS: BASOPHILS % (AUTO) 0 % (0-10); EOSINOPHILS # (AUTO) 0.2 10^3/uL (0.0-0.3); EOSINOPHILS % (AUTO) 2 % (0-10); HEMATOCRIT 41 % (40-54); HEMOGLOBIN 13.4 G/DL (13.3-17.7); LYMPHOCYTES # (AUTO) 2.1 X 10^3 (1.0-4.0); LYMPHOCYTES % (AUTO) 19 % (12-44); MEAN CORPUSCULAR HEMOGLOBIN 29 PG (25-34); MEAN CORPUSCULAR HGB CONC 33 G/DL (32-36); MEAN CORPUSCULAR VOLUME 88 FL (80-99); MEAN PLATELET VOLUME 9.4 FL (7.4-10.4); MONOCYTES # (AUTO) 0.9 X 10^3 (0.0-1.0); MONOCYTES % (AUTO) 8 % (0-12); NEUTROPHILS # (AUTO) 7.8 X 10^3 (1.8-7.8); NEUTROPHILS % (AUTO) 71 % (42-75); PLATELET COUNT 303 10^3/uL (130-400); RED CELL DISTRIBUTION WIDTH 13.7 % (10.0-14.5)
[2018-07-12 04:00] LABS: ALANINE AMINOTRANSFERASE 32 U/L (0-55); ALKALINE PHOSPHATASE 86 U/L (40-136); BILIRUBIN,TOTAL 0.6 MG/DL (0.1-1.0); BUN/CREATININE RATIO 11; CALCIUM 9.3 MG/DL (8.5-10.1); CARBON DIOXIDE 28 MMOL/L (21-32); CHLORIDE 102 MMOL/L (98-107); CHOLESTEROL 128 MG/DL (< 200); CREATININE SERUM 0.76 MG/DL (0.60-1.30); GFR ESTIMATED > 60; GLUCOSE 123 MG/DL (70-105); HDL CHOLESTEROL 28 MG/DL (40-60); POTASSIUM 3.9 MMOL/L (3.6-5.0); SODIUM 140 MMOL/L (135-145); TOTAL PROTEIN 6.6 GM/DL (6.4-8.2); TRIGLYCERIDES 104 MG/DL (<150); VLDL CHOLESTEROL 21 MG/DL (5-40)
[2018-07-12 04:08] LABS: MYOGLOBIN SERUM 175.2 NG/ML (10.0-92.0)
[2018-07-12 04:16] LABS: CARDIAC PROFILE 2 3.39 NG/ML (<0.30)
[2018-07-12] MEDS ORDERED: NON-FORMULARY MEDICATION 1 EA EA (Carisoprodol 350 MG) PO PRN (07:45)
[2018-07-12] MEDS ORDERED: NON-FORMULARY MEDICATION 1 EA EA (Oxycodone HCl 10 MG) PO PRN (07:45)
[2018-07-12] MEDS ORDERED: OXYC10TA7 PO (07:52)
[2018-07-12] MEDS ORDERED: PATIENT MAY USE OWN MEDS, ALL MC SCH (08:00)
[2018-07-12] MEDS: NS IV 1000 ML 1,000 ML IV SCH ×3 (08:04→21:20)
[2018-07-12] MEDS ORDERED: CARISOPRODOL 350 MG (SOMA) TAB PO PRN ×2 (08:30→08:45)
[2018-07-12] MEDS ORDERED: NIFE10CA44 PO (08:45)
[2018-07-12] MEDS ORDERED: ALLO100T PO (08:45)
[2018-07-12] MEDS ORDERED: LOSA50TA7 PO (08:45)
[2018-07-12] MEDS ORDERED: ISOS30TA3 PO (08:45)
[2018-07-12] MEDS ORDERED: WARF-48 PO ×2 (08:45)
[2018-07-12] MEDS ORDERED: GEMF600T4 PO (08:45)
[2018-07-12] MEDS: GABAPENTIN 600 MG (NEURONTIN) TAB PO SCH ×4 (08:46→21:20)
[2018-07-12] MEDS: OXYCODONE 10 MG PO PRN ×4 (08:46→21:21)
[2018-07-12] MEDS: ASPIRIN E.C. 81 MG (ECOTRIN) TAB PO SCH (08:57)
[2018-07-12] MEDS ORDERED: fentaNYL INJECTION 100 MCG/2 ML AMP ONE (09:37)
[2018-07-12] MEDS ORDERED: MIDAZOLAM 5 MG/5 ML (VERSED) VIAL ONE (09:37)
[2018-07-12] MEDS ORDERED: LIDOCAINE 1% INJ 20 ML 20 ML VIAL ONE (09:37)
[2018-07-12] MEDS ORDERED: HEParin (CATH LAB) 1,000 ML IV ONE ×2 (09:37→09:39)
[2018-07-12] MEDS ORDERED: HEParin 1000 UNIT/ML (10ML VIAL) FOR BOLUS ONE (09:37)
--- NOTE | 2018-07-12 10:29 | Consultation-Cardiology ---
HPI-Cardiology Cardiology Consultation: Date of Consultation 07/12/18 Date of Admission Attending Physician Luc Casanova MD Admitting Physician John Flowers MD Consulting Physician Dorothea DURAN MD HPI: Time Seen by a Provider: 10:29 Chief Complaint: Chest pain This is a 47-year-old gentleman with history of active smoking, previous PCI to left circumflex artery, presented with acute occlusion. Was treated with PCI and PTCA. HEEL FORMER RCA was treated with multiple stents at . Patient also has history of PE/DVT and was on Coumadin. Patient of Dr. Mckeon. Patient was planned to have a left above-knee amputation on 07/14/2018 and stopped aspirin, Plavix and Coumadin. Presents with prolonged episode of recurrent chest pain, positive cardiac enzymes. Patient was given bolus of aspirin, Brilinta and IV infusion of heparin. He continues to smoke. Review of Systems-Cardiology Review of Systems Constitutional: As described under HPI; No As described under HPI, No no symptoms reported, No chills, No fever, No lightheadedness Eyes: No As described under HPI, No no symptoms reported, No blindness, No blurred vision, No contact lenses, No drainage, No decreased acuity, No foreign body sensation, No pain, No vision change Ears/Nose/Throat: No As described under HPI, No no symptoms reported, No chronic hearing loss, No ear discharge, No ear pain, No nasal drainage, No ulcerations Respiratory: No no symptoms reported; As described under HPI; No As described under HPI, No cough, No orthopnea, No shortness of breath, No SOB with excertion Cardiovascular: No no symptoms reported; As described under HPI; No As described under HPI; chest pain; No edema, No irregular heart rate, No lightheadedness, No palpitations Gastrointestinal: No no symptoms reported, No As described under HPI, No abdomen distended, No abdominal pain, No blood streaked bowels, No constipation , No diarrhea, No nausea, No vomiting, No stool coloration changes Genitourinary: No As described under HPI, No burning, No dysuria, No discharge , No frequency, No flank pain, No hematuria, No urgency Skin: No rash, No skin related problems, No ulcerations Psychiatric/Neurological: No anxiety, No depression, No seizure, No focal weakness, No syncope Hematologic: No bleeding abnormalities All Other Systems Reviewed Negative Unless Noted: Yes QPE-Rseshy-Eppdry Hx Patient Social History Alcohol Use: Denies Use Recreational Drug Use: No Smoking Status: Current Everyday Smoker Type Used: Cigarettes 2nd Hand Smoke Exposure: No Recent Foreign Travel: No Recent Infectious Disease Expo: No Physical Abuse Screen: No Sexual Abuse: No Immunizations Up To Date Date of Pneumonia Vaccine: Jul 28, 2012 Date of Influenza Vaccine: Jun 08, 2017 Past Medical History PMH As described under Assessment. Family Medical History Family History: Arthritis G8 BROTHER Blood clots 19 MOTHER ( of blood clot) Cardiac disorder 19 FATHER Diabetes mellitus G8 BROTHER FH: cancer paternal grandmother FHx: inflammatory bowel disease G8 BROTHER No Family History of: FH: sudden cardiac (SCD) Allergies and Home Medications Allergies Coded Allergies: Penicillins (Unverified Allergy, Mild, 01/27/09) Home Medications Allopurinol 100 Mg Tablet, 100 MG PO DAILY, (Reported) Atorvastatin Calcium 40 Mg Tablet, 40 MG PO DAILY, (Reported) Carisoprodol 350 Mg Tablet, 350 MG PO BID PRN for SPASMS, (Reported) Clopidogrel Bisulfate 75 Mg Tablet, 75 MG PO DAILY, (Reported) Gabapentin 600 Mg Tablet, 600 MG PO QID, (Reported) Gemfibrozil 600 Mg Tablet, 600 MG PO BID, (Reported) Isosorbide Mononitrate 30 Mg Tab.er.24h, 30 MG PO DAILY, (Reported) Losartan Potassium 50 Mg Tablet, 50 MG PO DAILY, (Reported) Multivits-Minerals/FA/Lycopene 1 Each Tablet, 1 TAB PO DAILY, (Reported) Nifedipine 10 Mg Capsule, 10 MG PO TID, (Reported) Nitroglycerin 0.4 Mg Tab.subl, 0.4 MG SL UD PRN for CHEST PAIN, (Reported) [place] 3 Polyunsat Fatty Acids 1,000 Mg Cap, 1,000 MG PO TID, (Reported) Omeprazole Magnesium 20 Mg Tablet.dr, 20 MG PO DAILY, (Reported) Oxycodone HCl 10 Mg Tablet, 10 MG PO Q4H PRN for lower back and leg pain, ( Reported) take one tablet Q4-6H prn for back and left leg pain Warfarin Sodium 5 Mg Tablet, 5 MG PO ,,SAT,SAT, (Reported) TAKES ONE TABLET ON SATURDAY, SATURDAY, SATURDAY, AND SATURDAY Warfarin Sodium 5 Mg Tablet, 2.5 MG PO ,,SAT, (Reported) TAKES HALF A TAB ON SATURDAY, SATURDAY, AND SATURDAY Patient Home Medication List Home Medication List Reviewed: Yes Physical Exam-Cardiology Physical Exam Vital Signs/I&O 07/12/18 07/12/18 07/12/18 07/12/18 04:00 04:00 04:00 07:00 Temp 98.1 Pulse 64 80 Resp 22 B/P (MAP) 113/72 (86) Pulse Ox 96 95 O2 Delivery Nasal Cannula Nasal Cannula O2 Flow Rate 2.00 2.00 07/12/18 07/12/18 07/12/18 07/12/18 08:00 08:00 08:04 12:22 Temp 97.7 98.5 Pulse 70 77 Resp 20 18 B/P (MAP) 121/78 (92) 134/79 (97) Pulse Ox 97 97 95 93 O2 Delivery Room Air Room Air Room Air Room Air 07/12/18 13:00 Pulse 83 07/12/18 00:00 Intake Total 400 ml Output Total 350 ml Balance 50 ml Capillary Refill : Less Than 3 Seconds Constitutional: appears stated age, AAO x 3; No apparent distress; well- developed, well-nourished HEENT: PERRL; No normal ENT inspection, No TMs normal, No pharynx normal, No scleral icterus (R), No scleral icterus (L), No pale conjunctivae (R), No pale conjunctivae (L), No photophobia, No TM abnormal (R), No TM abnormal (L), No pharyngeal erythema, No tonsillar exudate, No other, No discharge, No EOMI; hearing is well preserved; No hard of hearing; oral hygience is good; No ulceration, No xanthelasmas are seen Neck: No non-tender, No full range of motion, No supple, No normal inspection, No carotid bruit, No limited range of motion, No lymphadenopathy (R), No lymphadenopathy (L), No tender lateral, No tender midline, No thyromegaly, No other; carotid pulses are 2 + bilaterally; No with good upstrokes Respiratory: No accessory muscle use, No respiratory distress, No chest tender , No chest expansion is symmetric; chest is bilaterally symmetric; No lungs clear to percussion; lungs clear to auscultation; No crackles, No rhonchi, No rales, No stridor, No wheezing, No pleural rub, No other Cardiovascular: regular rate-rhythm; No irregularly irregular, No extra beats, No parasternal heave is noted, No JVD, No edema, No bradycardia, No tachycardia , No point of maximal impulse, No cardiac thrills are palpable; S1 and S2; No gallop/S3, No gallop/S4, No diastolic murmur, No systolic murmur, No friction rub, No click, No other Gastrointestinal: No tender, No soft, No round, No distended, No pulsatile mass , No organomegaly, No guarding, No rebound, No tenderness, No hernia, No mass, No audible bowel sounds, No abnormal bowel sounds, No abdominal bruits, No spleenomegaly, No other Rectal: deferred Extremities: No normal range of motion, No non-tender, No normal inspection, No pedal edema, No calf tenderness, No normal capillary refill, No pelvis stable , No calf tenderness, No inflammation, No pedal edema, No slow capillary refill , No swelling, No other, No abrasion, No clubbing, No cyanosis, No ecchymosis, No laceration, No no lower extremity edema bilateral, No significant edema, No tenderness, No wound Neurologic/Psychiatric: no motor/sensory deficits, alert, normal mood/affect, oriented x 3, power is 5/5 both on sides Skin: No normal color, No warm/dry, No cyanosis, No cool, No diaphoresis, No damp, No ecchymosis, No jaundice, No mottled, No pallor, No rash, No tattoos/ piercings, No ulcerations, No rash on exposed areas, No ulcerations on exposed areas, No other Data Review Labs Laboratory Tests 07/11/18 16:34: Myoglobin 238.6H, Troponin I < 0.30 07/11/18 19:34: Myoglobin 459.1H, Troponin I 0.48*H, Total Creatine Kinase 206H 07/11/18 22:27: Activated Partial Thromboplast Time 137*H 07/12/18 02:55: Myoglobin 175.2H, Troponin I 3.39*H, Activated Partial Thromboplast Time 48H, White Blood Count 11.0, Red Blood Count 4.60, Hemoglobin 13.4, Hematocrit 41, Mean Corpuscular Volume 88, Mean Corpuscular Hemoglobin 29, Mean Corpuscular Hemoglobin Concent 33, Red Cell Distribution Width 13.7, Platelet Count 303, Mean Platelet Volume 9.4, Neutrophils (%) (Auto) 71, Lymphocytes (%) (Auto) 19, Monocytes (%) (Auto) 8, Eosinophils (%) (Auto) 2, Basophils (%) (Auto) 0, Neutrophils # (Auto) 7.8, Lymphocytes # (Auto) 2.1, Monocytes # (Auto) 0.9, Eosinophils # (Auto) 0.2, Basophils # (Auto) 0.0, Sodium Level 140, Potassium Level 3.9, Chloride Level 102, Carbon Dioxide Level 28, Anion Gap 10, Blood Urea Nitrogen 8, Creatinine 0.76, Estimat Glomerular Filtration Rate > 60, BUN/ Creatinine Ratio 11, Glucose Level 123H, Calcium Level 9.3, Corrected Calcium 9.3, Total Bilirubin 0.6, Aspartate Amino Transf (AST/SGOT) 59H, Alanine Aminotransferase (ALT/SGPT) 32, Alkaline Phosphatase 86, Total Protein 6.6, Albumin 4.0, Triglycerides Level 104, Cholesterol Level 128, LDL Cholesterol Direct 87, VLDL Cholesterol 21, HDL Cholesterol 28L 07/12/18 07:55: Activated Partial Thromboplast Time 46H ECG Impression ECG Initial ECG Rhythm: Normal Sinus Initial ECG Impression: Nonspecific Changes A/P-Cardiology Assessment/Admission Diagnosis Non-STEMI, History of CAD, Active smoking, Plan Urgent coronary angiography is recommended. I discussed at length with the patient all the risks and complications. Medical compliance was recommended. Aspirin, Brilinta, IV heparin. Patient will continue on statin, lisinopril, beta mery. Smoking cessation was strongly recommended. Delay left AKA. Defer to Dr. Rhoades Thank you for your consultation. Please call me if you have any questions. Dacia Duran MD, FACP, FACC, FSCAI, FHRS, CCDS Interventional Cardiology Cardiac Electrophysiology Vascular Medicine and Endovascular Interventions Clinical Quality Measures AMI/AHF: ASA po Prior to arrival: No DVT/VTE Risk/Contraindication: Risk Factor Score Per Nursin RFS Level Per Nursing on Admit: 4+=Very High Dorothea DURAN MD Jul 12, 2018 10:29 am
[2018-07-12] MEDS ORDERED: EPTIFIBATIDE BOLUS 20 ML IV ONE (11:09)
[2018-07-12] MEDS ORDERED: EPTIFIBATIDE DRIP 100 ML IV ONE (11:28)
[2018-07-12] MEDS ORDERED: NITRO DRIP 25000 MCG/D5W 250 ML IV ONE (11:34)
[2018-07-12] MEDS ORDERED: VERAPAMIL 5 MG/2 ML (CALAN) VIAL IV ONE (11:34)
[2018-07-12] MEDS ORDERED: TICAGRELOR 90 MG TABLET (BRILINTA) PO ONE (11:37)
--- NOTE | 2018-07-12 11:48 | Cardiac Procedure Note-CS/ASA ---
Pre-Procedure Note Pre-Op Procedure Note H&P Reviewed The H&P was reviewed, patient examined and no changes noted. Date H&P Reviewed: Jul 12, 2018 Time H&P Reviewed: 10:15 Conscious Sedation Pre-Proced Time 10:15 ASA Score 3 For ASA 3 and 4: Consider anesthesia and medical clearance. Also, for patients with a history of failed moderate sedation consider anesthesia. Airway Lungs Heart ASA score ASA 1: a normal healthy patient ASA 2: a patient with a mild systemic disease (mid diabetes, controlled hypertension, obesity ASA 3: a patient with a severe systemic disease that limits activity (angina , COPD, prior Myocardial infarction) ASA 4: a patient with an incapacitating disease that is a constant threat to life (CHF, renal failure) ASA 5: a moribund patient not expected to survive 24 hrs. (ruptured aneurysm) ASA 6: a declared brain patient whose organs are being harvested. For emergent operations, add the letter E after the classification Mallampati Classification Grade 1 Sedation Plan Analgesia, Amnesia, Plan communicated to team members, Discussed options with patient/fam, Discussed risks with patient/fam The patient is an appropriate candidate to undergo the planned procedure, sedation, and anesthesia. The patient immediately re-assessed prior to indication. Dorothea SIFUENTES MD Jul 12, 2018 11:48 am
--- NOTE | 2018-07-12 11:59 | Coronary Angiography & PCI ---
Coronary Angiography & PCI DATE OF PROCEDURE: 07/12/18 INDICATION: Non-STEMI. PREOPERATIVE DIAGNOSIS: Non-STEMI POSTOPERATIVE DIAGNOSIS: Stent thrombosis, occlusion of mid/distal RCA stents. Successful PTCA. HISTORY: This is a 47-year-old gentleman with history of active smoking, PAD, significant CAD. He has history of left circumflex artery stent which occluded in 06/2017 requiring PCI. He also had a chronic total occlusion of the RCA which was treated at with 3 long drug-eluting stents in 07/2017. Patient was planning to undergo left AKA on 07/14/2018 and had stopped aspirin, Plavix, Coumadin. The patient was on Coumadin for PE/DVT. Patient presented yesterday with prolonged chest pain and positive enzymes. Working diagnosis non-ST elevation NV. Patient was given bolus Brilinta, aspirin, IV heparin infusion overnight. Therefore, the patient was scheduled for coronary angiography. PROCEDURES PERFORMED: 1.Coronary angiography. 2.Left heart catheterization. 3. Aortic arch angiogram. 4. PTCA to the mid/distal RCA stents. COMPLICATIONS: None. SPECIMENS: None. ESTIMATED BLOOD LOSS: 10 mL ANESTHESIA: Conscious sedation ANTICOAGULATION: IV heparin, IV Integrilin. CONTRAST: 145 mL. FLUOROSCOPY: 11.4 min. FLOUROSCOPY DOSE: 1260 mgy. PROCEDURE DETAILS: The patient is a 47 male and was brought to the carpenter/labor after informed consent was taken. All the risks and complications were explained in detail; this included the risk of bleeding, vascular damage, stroke , NV and even . The patient was draped and prepped in the usual sterile fashion. Access was gained in the right radial artery with a 6 Irish sheath. Coronary angiography and left heart catheterization was performed with the [place] catheter. FINDINGS: 1.Left main: Patent. 2.LAD: Patent. 3.Left circumflex artery: Patent stents in the OM 1 artery. No significant disease. 4.RCA: Stents starting from the ostium to the distal RCA. Stent thrombosis in the mid/distal RCA stents with total occlusion. 5.Left heart catheterization: Aortic pressure 87/65 mmHg. LV pressure 91/10 mmHg. LVEDP 17 mmHg. LVEF 4550 percent. No gradient across the aortic valve. 6. Aortic arch angiogram: No evidence of aneurysm or dissection. Patent proximal segments of the great arteries including brachycephalic artery, left common carotid artery, left subclavian artery. RECOMMENDATIONS: Intervention to the mid/distal RCA stent thrombosis and occlusion is recommended. INTERVENTION DETAILS: JR4 guide catheter, medium support whisper wire, IV heparin and Integrilin for anticoagulation. One ACT was done which was 229 seconds. Significant clot burden was noted in the mid and distal RCA therefore double bolus Integrilin was given and the patient was continued on Integrilin infusion. 90 mg of Brilinta was given. The lesion was very easily crossed with the whisper wire. We then took a emerge 2.0 X 20 mm semi-compliant balloon and performed inflations from the distal RCA to the mid RCA with recanalization but significant clot burden still. We therefore took a noncompliant 2.5X 30 mm balloon and performed inflations from the distal RCA till the ostium of the RCA with significant improved flow and no residue stenosis. Distal disease and clot is noted. Integrilin infusion will be given overnight. The wire and balloon was taken out and post-angiogram showed good results. Patient tolerated procedure well and did not have any complication. CONCLUSIONS: 1. Stent thrombosis and occlusion of the distal/mid RCA stents treated successfully with PTCA. 2. Integrilin infusion 12 hours. 3. Dual antiplatelet therapy long-term. Will defer further treatment as an outpatient with Dr. Rhoades. Dacia Duran MD, FACP, FACC, [facility] Interventional Cardiology Dorothea DURAN MD Jul 12, 2018 11:59 am
[2018-07-12] MEDS: EPTIFIBATIDE DRIP 100 ML IV SCH ×2 (12:22→18:01)
[2018-07-12] MEDS ORDERED: PATIENT MAY USE OWN MEDS, ALL PO SCH (14:15)
[2018-07-12] MEDS ORDERED: FLU QUADRIvalent (5+ YOA) 2018-2019 (AFLURIA) 0.5 ML IM ONE (17:55)
[2018-07-12] MEDS: TICAGRELOR 90 MG TABLET (BRILINTA) PO SCH (21:19)
[2018-07-13] VITALS: BP 114/64
[2018-07-13] MEDS: OXYCODONE 10 MG PO PRN ×3 (01:19→12:00)
[2018-07-13 03:45] LABS: HEMOGLOBIN 12.8 G/DL (13.3-17.7); MEAN PLATELET VOLUME 9.4 FL (7.4-10.4); RED BLOOD COUNT 4.45 10^6/uL (4.35-5.85); RED CELL DISTRIBUTION WIDTH 13.9 % (10.0-14.5); WHITE BLOOD COUNT 8.8 10^3/uL (4.3-11.0)
[2018-07-13 04:00] VITALS: BP 116/65
[2018-07-13 04:08] LABS: BUN/CREATININE RATIO 8; CALCIUM 8.9 MG/DL (8.5-10.1); CARBON DIOXIDE 27 MMOL/L (21-32); CHLORIDE 105 MMOL/L (98-107); CREATININE SERUM 0.76 MG/DL (0.60-1.30); GFR ESTIMATED > 60; GLUCOSE 101 MG/DL (70-105); POTASSIUM 3.9 MMOL/L (3.6-5.0); SODIUM 141 MMOL/L (135-145)
[2018-07-13 07:00] VITALS: BP 111/78
[2018-07-13] MEDS: TICAGRELOR 90 MG TABLET (BRILINTA) PO SCH (07:49)
[2018-07-13] MEDS: GABAPENTIN 600 MG (NEURONTIN) TAB PO SCH (07:49)
[2018-07-13] MEDS: ASPIRIN E.C. 81 MG (ECOTRIN) TAB PO SCH (07:50)
[2018-07-13 07:52] VITALS: BP 111/78
[2018-07-13] MEDS ORDERED: ASPIRIN E.C. 81 MG (ECOTRIN) TAB PO SCH (09:00)
[2018-07-13] MEDS ORDERED: ASPI-983 PO (10:40)
[2018-07-13] MEDS ORDERED: TICA90TA PO (10:40)
[2018-07-13] MEDS ORDERED: METO-333 PO (10:40)
[2018-07-13] MEDS ORDERED: meTOprolol TARTRATE 25 MG (LOPRESSOR) TABLET PO SCH (10:45)
--- NOTE | 2018-07-13 11:12 | Cardiology Progress Note ---
Cardiology SOAP Progress Note Subjective: No further chest pain. Objective: I&O/Vital Signs 07/13/18 07/13/18 07/13/18 07/13/18 04:00 04:00 04:00 07:00 Temp 97.6 Pulse 74 70 Resp 17 20 B/P (MAP) 116/65 (82) 111/78 (89) Pulse Ox 96 97 O2 Delivery Room Air Nasal Cannula Nasal Cannula O2 Flow Rate 2.00 2.00 07/13/18 07/13/18 07/13/18 07/13/18 07:00 07:52 08:00 09:00 Temp 97.8 Pulse 70 96 Resp 15 B/P (MAP) 111/78 (89) Pulse Ox 95 95 95 O2 Delivery Room Air Room Air Room Air 07/13/18 07/13/18 12:00 12:00 Temp 98.6 Pulse 96 Resp 20 B/P (MAP) 129/69 (89) Pulse Ox 96 96 O2 Delivery Room Air Room Air 07/13/18 00:00 Intake Total 1170 ml Output Total 400 ml Balance 770 ml Weight (Pounds): 209 Weight (Ounces): 4.0 Weight (Calculated Kilograms): [id number] Constitutional: appears stated age, AAO x 3; No apparent distress; well- developed, well-nourished Respiratory: No accessory muscle use, No respiratory distress, No chest tender , No chest expansion is symmetric; chest is bilaterally symmetric; No lungs clear to percussion; lungs clear to auscultation; No crackles, No rhonchi, No rales, No stridor, No wheezing, No pleural rub, No other Cardiovascular: regular rate-rhythm; No irregularly irregular, No extra beats, No parasternal heave is noted, No JVD, No edema, No bradycardia, No tachycardia , No point of maximal impulse, No cardiac thrills are palpable; S1 and S2; No gallop/S3, No gallop/S4, No diastolic murmur, No systolic murmur, No friction rub, No click, No other Gastrointestional: No tender, No soft, No round, No distended, No pulsatile mass, No organomegaly, No guarding, No rebound, No tenderness, No hernia, No mass, No audible bowel sounds, No abnormal bowel sounds, No abdominal bruits, No spleenomegaly, No other Extremities: No normal range of motion, No non-tender, No normal inspection, No pedal edema, No calf tenderness, No normal capillary refill, No pelvis stable , No calf tenderness, No inflammation, No pedal edema, No slow capillary refill , No swelling, No other, No abrasion, No clubbing, No cyanosis, No ecchymosis, No laceration, No no lower extremity edema bilateral, No significant edema, No tenderness, No wound Neurologic/Psychiatric: no motor/sensory deficits, alert, normal mood/affect, oriented x 3, power is 5/5 both on sides Skin: No normal color, No warm/dry, No cyanosis, No cool, No diaphoresis, No damp, No ecchymosis, No jaundice, No mottled, No pallor, No rash, No tattoos/ piercings, No ulcerations, No rash on exposed areas, No ulcerations on exposed areas, No other Results/Procedures: Labs Laboratory Tests 07/13/18 03:05: White Blood Count 8.8, Red Blood Count 4.45, Hemoglobin 12.8L, Hematocrit 40, Mean Corpuscular Volume 89, Mean Corpuscular Hemoglobin 29, Mean Corpuscular Hemoglobin Concent 32, Red Cell Distribution Width 13.9, Platelet Count 297, Mean Platelet Volume 9.4, Sodium Level 141, Potassium Level 3.9, Chloride Level 105, Carbon Dioxide Level 27, Anion Gap 9, Blood Urea Nitrogen 6L, Creatinine 0.76, Estimat Glomerular Filtration Rate > 60, BUN/Creatinine Ratio 8, Glucose Level 101, Calcium Level 8.9 A/P: Assessment/Dx: Non-STEMI, History of CAD, Active smoking, Plan: Urgent coronary angiography done yesterday. Stent thrombosis of RCA stents in the mid/distal segment noted. Aggressive PTCA done with IV Integrilin overnight - excellent angiographic results. Medical compliance was recommended. Patient stable with no further chest pain. EKG shows T-wave inversions in the inferior leads. Patient will be discharged on aspirin, Brilinta, losartan, statin, low-dose beta mery. Will hold Coumadin for now. Patient will follow with Dr. Rhoades's office. Smoking cessation was strongly recommended. History of PE/DVT: Hold Coumadin for now. Delay left AKA. Defer to Dr. Rhoades Thank you for your consultation. Please call me if you have any questions. Dacia Duran MD, FACP, FACC, FSCAI, FHRS, CCDS Interventional Cardiology Cardiac Electrophysiology Vascular Medicine and Endovascular Interventions Clinical Quality Measures AMI/AHF: ASA po Prior to arrival: Dorothea Locke MD Jul 13, 2018 11:12 am
--- NOTE | 2018-07-13 11:59 | Short Stay Summary-Hospitalist ---
History of Present Illness HPI/Chief Complaint The patient is a 47-year-old white male with significant vascular disease. He presented to the emergency room late Saturday with complaints of increasing chest pain. Initially his troponin was 0.3. Given his past history of intervention he was admitted the subsequent troponin increased to 0.48 and finally the early reading on 07/12 was 3.39. He went to the [facility] yesterday and was found to have an occluded stent which was intervened upon. He reports no further pain at this time. He was off his aspirin and Plavix in anticipation of a left AK amputation scheduled for Saturday by Dr. Foster in [place]. He has had prolonged pain in this leg and has been unable to walk on it for about one year. They are apparently has been minimal flow to that lower extremity. He also reports that his last cardiac stent was almost exactly 1 year ago today. Source: patient Date Seen 07/13/18 Time Seen by a Provider: 11:54 Attending Physician Luc Mondragon MD PCP John Flowers MD Referring Physician Date of Admission Jul 11, 2018 at 17:35 Home Medications & Allergies Home Medications Reviewed patient Home Medication Reconciliation performed by pharmacy medication reconciliations nuclear worker technician and/or nursing. Patients Allergies have been reviewed. Allergies Allergies Coded Allergies Penicillins (Unverified Allergy, Mild, 01/27/09) Past Pkcigxz-Xlhfdc-Xisfnw Hx Past Med/Social Hx: Reviewed Nursing Past Med/Soc Hx Patient Social History Alcohol Use: Denies Use Recreational Drug Use: No Smoking Status: Current Everyday Smoker Former Smoker, Quit: Jun 26, 2017 Type Used: Cigarettes 2nd Hand Smoke Exposure: No Physical Abuse Screen: No Sexual Abuse: No Recent Foreign Travel: No Contact w/other who traveled: No Recent Hopitalizations: No Recent Infectious Disease Expo: No Immunizations Up To Date Date of Pneumonia Vaccine: Jul 28, 2012 Date of Influenza Vaccine: Jun 08, 2017 Seasonal Allergies Seasonal Allergies: No Past Medical History Surgeries: Cardiac, Coronary Stent Respiratory: Pulmonary Embolism Currently Using CPAP: No Currently Using BIPAP: No Cardiac: Coronary Artery Disease, Deep Vein Thrombosis, Heart Attack, High Cholesterol, Hypertension Reproductive: No Gastrointestinal: Gastroesophageal Reflux Musculoskeletal: Chronic Back Pain, Gout History of Blood Disorders: Yes (PROTEIN S DEFICIENCY--DVT'S AND P.E.'S AND [place] X 2) Family History Reviewed Nursing Family Hx Arthritis G8 BROTHER Blood clots 19 MOTHER ( of blood clot) Cardiac disorder 19 FATHER Diabetes mellitus G8 BROTHER FH: cancer paternal grandmother FHx: inflammatory bowel disease G8 BROTHER No Family History of: FH: sudden cardiac (SCD) Heart Disease, Vascular Disease Review of Systems Constitutional: see HPI EENTM: no symptoms reported Respiratory: no symptoms reported Cardiovascular: see HPI, chest pain, Hx of Intervention Gastrointestinal: no symptoms reported Genitourinary: no symptoms reported Musculoskeletal: other (chronic ischemic left lower extremity pain) Skin: no symptoms reported Psychiatric/Neurological: No Symptoms Reported Physical Exam Physical Exam Vital Signs Vital Signs - First Documented 07/11/18 14:11 Temp 97.0 Pulse 81 Resp 26 B/P (MAP) 139/89 (106) Pulse Ox 94 Capillary Refill : Less Than 3 Seconds Height, Weight, BMI Height: 5'5.00" Weight: 209lbs. 4.0oz. [id number]; 34.8 BMI Method:Stated General Appearance: No Apparent Distress HEENT: Normal ENT Inspection Neck: Normal Inspection Respiratory: Chest Non Tender, Lungs Clear, Normal Breath Sounds, No Accessory Muscle Use, No Respiratory Distress Cardiovascular: Regular Rate, Rhythm, No Edema, No Gallop, No JVD, No Murmur, Normal Peripheral Pulses Gastrointestinal: Normal Bowel Sounds, No Organomegaly, No Pulsatile Mass, Non Tender, Soft Back: Normal Inspection, No CVA Tenderness, No Vertebral Tenderness Neurologic/Psychiatric: Alert, Oriented x3, No Motor/Sensory Deficits, Normal Mood/Affect Skin: Other (extreme whole-body freckling) Comments The left lower extremity is cool but not cold. No pulse is palpated. Results Results/Procedures Labs Laboratory Tests 07/11/18 14:16 07/12/18 02:55 07/13/18 03:05 Patient resulted labs reviewed. Short Stay Diagnosis Discharge Diagnosis-Short Stay Admission Diagnosis Chest pain consistent with crescendo angina. 2.vasculopathy with planned amputation left lower extremity. 3.tobaccoism Final Discharge Diagnosis N STEMI post successful intervention. 2.extensive peripheral artery disease. Conclusion Plan Discharged to home. The patient has been placed back on anticoagulation. His future amputation will have to be cleared through discussions with the surgeon and the hospital account liaison. See discharge sequence for medications and routines. Clinical Quality Measures AMI/AHF: ASA po Prior to arrival: No DVT/VTE Risk/Contraindication: Risk Factor Score Per Nursin RFS Level Per Nursing on Admit: 4+=Very High LUC MONDRAGON MD Jul 13, 2018 11:59
[2018-07-13 12:00] VITALS: BP 129/69
--- NOTE | 2018-07-13 12:17 | Discharge Instructions ---
Discharge Instructions Patient Instructions Patient Instructions: Medications as listed on the discharge sequence. Be aware that several of your old medications have been discontinued and new prescriptions filed for blood thinners. Appointment with Dr. Rhoades and follow-up. Activity & Diet Discharge Diet: No Restrictions Activity as Tolerated: Yes JOHN MONDRAGON MD Jul 13, 2018 12:17
[2018-07-13 13:04] VITALS: BP 129/69
== END 2018-07-13 13:04 | disposition home or self-care (01) ==
LOC: EDUNIT# 14:03 → ER 14:04 → ICU 17:35
PROVIDERS: ADMIT Internal Medicine; ATTEND Internal Medicine
DX: I21.4 Non-ST elevation (NSTEMI) myocardial infarction (principal); I73.9 Peripheral vascular disease, unspecified; I25.10 Atherosclerotic heart disease of native coronary artery without angina pectoris; E78.00 Pure hypercholesterolemia, unspecified; I10 Essential (primary) hypertension; I25.2 Old myocardial infarction; Z86.711 Personal history of pulmonary embolism; Z86.718 Personal history of other venous thrombosis and embolism; M10.9 Gout, unspecified; K21.9 Gastro-esophageal reflux disease without esophagitis; Z95.5 Presence of coronary angioplasty implant and graft; F17.210 Nicotine dependence, cigarettes, uncomplicated; Z79.01 Long term (current) use of anticoagulants; Z79.899 Other long term (current) drug therapy
CPT/HCPCS: 36415; 71045; 80048; 80053; 80061; 82550; 83690; 83735; 83874; 84484; 85025; 85027; 85347; 85610; 85730; 90471; 90686; 93005; 93041; 93458; 93567

== ENCOUNTER 2018-09-25 12:18 | Inpatient (IN) | payer BC ==
[~2018-09-25] VITALS: Ht 162.6 cm; Wt 92.1 kg
[~2018-09-25 12:18] MED LIST changes: -GABA600T2 PO; +GBPN600T PO; -GEMF600T4 PO; +GEMF600T8 PO; +ISOS30TA3 PO; +LOSA50TA63 PO; +METO-333 PO; +NIFE10CA44 PO; +OXYC10TA7 PO; +TICA90TA PO
[2018-09-25] MEDS ORDERED: ACETAMINOPHEN 500 MG TAB (TYLENOL) PO PRN (13:30)
[2018-09-25] MEDS ORDERED: MELATONIN 3 MG TABLET PO PRN (13:30)
[2018-09-25] MEDS ORDERED: DOCUSATE SODIUM 100 MG (COLACE) CAP PO PRN (13:30)
[2018-09-25] MEDS ORDERED: IBUPROFEN TABLET 200 MG TAB PO PRN (13:30)
[2018-09-25] MEDS ORDERED: LOPERAMIDE 2 MG (IMODIUM) CAP PO PRN (13:30)
[2018-09-25] MEDS ORDERED: CALCIUM CARBONATE 500 MG (TUMS) TAB.CHEW PO PRN (13:30)
[2018-09-25] MEDS ORDERED: diphenhydrAMINE 25 MG TAB (BENADRYL) PO PRN (13:30)
[2018-09-25] MEDS ORDERED: ONDANSETRON 4 MG (ZOFRAN) ORAL DISSOLVE TAB PO PRN (13:30)
--- NOTE | 2018-09-25 18:26 | NUR ---
Admitted to room 225-1, with an admitting diagnosis of AKA, on 09/25/18 from [facility] via w/c, accompanied by .HOANG ALVARADO introduced to surroundings, call light, bed controls, phone, TV, temperature control, lights, meal times, smoking policy, visitor policy, side rail policy, bathrooms and showers. Patient Rights given to patient in the handbook.HOANG ALVARADO verbalizes understanding that [facility] is not responsible for the loss or damage to any personal effects or valuables that are kept in the patients posession during their hospitalization. The following Patient Care Plans were discussed with the : Discharge Planning, ,, and . HOANG ALVARADO verbalizes understanding of Interdisciplinary Patient Education. Patient and/or family were informed about the Rapid Response Team and its purpose. Patient received Patient Rights Booklet, which includes Privacy Act Statement and Data Collection Information Summary.
[2018-09-25 18:27] VITALS: BP 111/75
[2018-09-25] MEDS: ALPRAZolam 0.25 MG (XANAX) TAB PO PRN ×2 (18:41→18:42)
[2018-09-25] MEDS: HYDROcodone/APAP 5 MG/325 MG (LORTAB) TAB PO PRN ×2 (18:42→22:43)
[2018-09-25] MEDS: GABAPENTIN 600 MG (NEURONTIN) TAB PO SCH (20:39)
[2018-09-25] MEDS: meTOprolol TARTRATE 25 MG (LOPRESSOR) TABLET PO SCH (20:39)
[2018-09-25] MEDS: POLYETHYLENE GLYCOL 17 GM (MIRALAX) PACK PO SCH (20:39)
[2018-09-25] MEDS ORDERED: CARISOPRODOL 350 MG (SOMA) TAB PO SCH (21:00)
[2018-09-26] MEDS: HYDROcodone/APAP 5 MG/325 MG (LORTAB) TAB PO PRN ×2 (03:41→08:25)
[2018-09-26] MEDS: ALPRAZolam 0.25 MG (XANAX) TAB PO PRN (04:11)
[2018-09-26 05:02] VITALS: BP 124/84
[2018-09-26 07:00] VITALS: BP 117/78
[2018-09-26] MEDS ORDERED: OMEGA 3 (FISH OIL) 1000 MG CAP PO SCH (07:00)
[2018-09-26] MEDS ORDERED: GEMFIBROZIL 600 MG (LOPID) TAB PO SCH (07:00)
--- NOTE | 2018-09-26 08:00 | NUR ---
DR. JAMES HERE AND INFORMED OF PATIENT'S INADEQUATE PAIN RELIEF AND CRYING. PATIENT REQUESTING PERCOCET AND STATES LORTAB DOES NOT HELP. MEDICATION CHANGES ORDERED.
[2018-09-26] MEDS ORDERED: CLOP75TA69 PO ×2 (08:01→10:40)
--- NOTE | 2018-09-26 08:40 | PM&R H&P / Post Admit Assess ---
History of Present Illness HPI/Chief Complaint CC:Debility following left AKA HPI: This is a 48-year-old white male known to me from prior hospital admissions his primary care provider is Dr. Flowers who presents following a left fqgcl-upq-ftqg amputation by Dr. Marcelo at [facility]. Patient had struggled with the left leg for many months with failed vascular procedures and wound care patient was unable to maintain the limb so that was amputated in an uneventful manner by Dr. Marcelo. He had no significant events while at [facility] had no infections and no significant clinical status change. Patient did have a myocardial infarction [address] Rhoades is his regular powered bridge specialist and he has been consulted. I have reviewed all of his home medications prior to [facility] and current medications from [facility]. Patient is in so much pain that I am unable to obtain any more details so will initiate long-acting OxyContin and provide Percocet for pain control. He did have a bowel movement so will initiate stool softener for narcotic bowel prevention. Source: patient, family, RN/MD Exam Limitations: clinical condition Date Seen 09/26/18 Time Seen by a Provider: 09:00 Attending Physician Salma James Jonathan L MD Referring Physician Date of Admission Sep 25, 2018 at 17:48 Home Medications & Allergies Home Medications Reviewed patient Home Medication Reconciliation performed by pharmacy medication reconciliations aviation technician and/or nursing. Patients Allergies have been reviewed. Allergies Allergies Coded Allergies Penicillins (Unverified Allergy, Mild, 01/27/09) Past Avhxped-Fpyacd-Vrbfvo Hx Past Med/Social Hx: Reviewed Nursing Past Med/Soc Hx, Reviewed and Corrections made Patient Social History Marrital Status: Employed/Student: employed Alcohol Use: Denies Use Recreational Drug Use: No Smoking Status: Current Everyday Smoker Former Smoker, Quit: Jun 26, 2017 Type Used: Cigarettes 2nd Hand Smoke Exposure: No Physical Abuse Screen: No Sexual Abuse: No Recent Foreign Travel: No Contact w/other who traveled: No Recent Hopitalizations: No Recent Infectious Disease Expo: No Immunizations Up To Date Pediatric: Yes Date of Pneumonia Vaccine: Jul 28, 2012 Date of Influenza Vaccine: Sep 25, 2018 Seasonal Allergies Seasonal Allergies: No Past Medical History Surgeries: Cardiac, Coronary Stent, Orthopedic (left aka 09/13) Respiratory: COPD, Pulmonary Embolism Currently Using CPAP: No Currently Using BIPAP: No Cardiac: Coronary Artery Disease, Deep Vein Thrombosis, Heart Attack, High Cholesterol, Hypertension Reproductive: No Gastrointestinal: Gastroesophageal Reflux Musculoskeletal: Chronic Back Pain, Gout History of Blood Disorders: Yes (PROTEIN S DEFICIENCY--DVT'S AND P.E.'S AND [place] X 2) Family History Arthritis G8 BROTHER Blood clots 19 MOTHER ( of blood clot) Cardiac disorder 19 FATHER Diabetes mellitus G8 BROTHER FH: cancer paternal grandmother FHx: inflammatory bowel disease G8 BROTHER No Family History of: FH: sudden cardiac (SCD) Heart Disease, Vascular Disease Review of Systems Constitutional: see HPI, dizziness EENTM: see HPI Respiratory: cough Cardiovascular: no symptoms reported Gastrointestinal: no symptoms reported Genitourinary: no symptoms reported Musculoskeletal: other (left amputation site pain) Skin: see HPI Psychiatric/Neurological: See HPI All Other Systems Reviewed Negative Unless Noted: Yes Physical Exam Exam Vital Signs Vital Signs Date Time Temp Pulse Resp B/P (MAP) Pulse Ox O2 Delivery O2 Flow Rate FiO2 09/26/18 09:00 Room Air 09/26/18 07:00 96 117/78 (91) 09/26/18 05:02 98.3 18 92 Capillary Refill : General Appearance: WD/WN, Anxious, Chronically ill, Moderate Distress HEENT: PERRL/EOMI, TMs Normal, Normal ENT Inspection, Pharynx Normal, Moist Mucous Membranes Neck: Full Range of Motion, Normal Inspection, Non Tender, Supple Respiratory: Chest Non Tender, No Accessory Muscle Use, No Respiratory Distress , Crackles, Decreased Breath Sounds Cardiovascular: Regular Rate, Rhythm, No Edema, No Gallop, No JVD, No Murmur Gastrointestinal: Normal Bowel Sounds, No Organomegaly, No Pulsatile Mass, Non Tender, Soft Rectal: Normal Exam, Normal Rectal Tone Genital/Rectal: Normal Genital Exam, Normal Rectal Exam, Normal Rectal Tone, Normal Vaginal Exam Back: Normal Inspection, No CVA Tenderness, No Vertebral Tenderness Extremity: Normal Capillary Refill, Normal Inspection, Normal Range of Motion, Non Tender, No Calf Tenderness, No Pedal Edema, Other (left AKA dressing intact) Neurologic/Psychiatric: Alert, Oriented x3, No Motor/Sensory Deficits, Normal Mood/Affect Skin: Normal Color, Warm/Dry Lymphatic: No Adenopathy Results Results/Procedures Labs Laboratory Tests 09/26/18 09:30 Patient resulted labs reviewed. Assessment/Plan Assessment and Plan Assess & Plan/Chief Complaint Assessment: Status post uneventful left knee amputation by Dr. Marcelo and [facility] Recent GA 8 weeks ago Smoker Coarse breath sounds today nebulizer treatments PVD Plan: Initiate intensive therapy Work on transfers and assistive devices Monitor labs closely Check chest x-ray Nebulized treatments (1) Above knee amputation of left lower extremity (2) CAD (coronary artery disease) (3) Myocardial infarct, old (4) Smoker (5) PVD (peripheral vascular disease) (6) COPD (chronic obstructive pulmonary disease) Post Admission Physician Asses Date seen by provider: Sep 26, 2018 Time seen by provider: 09:00 The preadmission screen agrees with the post admission assessment that the patient is a good candidate for inpatient rehabilitation. The patient will have a comprehensive program of inpatient rehabilitation with a goal of maximizing level of functional independence prior to discharge home with family. The patient will have PT/OT ninety minutes per day, each discipline, five days a week for gait, strengthening, conditioning, balance, ADLs, any patient/family/caregiver training as necessary. Speech therapy to do cognitive assessment and treat as indicated. Rehabilitation nursing to assist with bowel, bladder, skin, wound care, medication administration, pain management. Oil And Gas Exploration Technician to assist with discharge planning, community reentry. SCD's for DVT prophylaxis. He appears to be well motivated to participate in three hours of therapy a day. He should be able to tolerate three hours of therapy a day from a medical standpoint. He should benefit from the three hours of therapy a day. He has a reasonable discharge plan, reasonable discharge rehabilitation goals and a supportive family. He has various comorbidities that need to be closely monitored with medications and treatments adjusted on a daily basis as needed. These include: see above Barriers to discharge for this patient who had been independent prior to this are for him to be modified independent to supervision for ADLs and mobility skills prior to discharge home with [family], so as to lessen the burden of the caregivers. Risks for this patient include: 1. Fall 2. Fracture 3. DVT 4. Pulmonary embolism 5. Wound infection 6. Skin breakdown 7. Contractures 8. Poorly controlled pain 9. Urinary retention 10. UTI 11. Respiratory infection 12. Aspiration Estimated Length of Stay: 10 days Prognosis: Rehab prognosis appears good for goal of discharge home with family modified independent to supervision for ADLs and mobility skills. General: Alert, Oriented X3, Cooperative, No Acute Distress HEENT: Atraumatic, PERRLA Neck: Supple, No JVD, No Thyromegaly, +2 Carotid Pulse No Bruit, No LAD Lungs: Other Abdomen: Normal Bowel Sounds, Soft, No Tenderness, No Hepatosplenomegaly, No Masses Extremities: No Clubbing, No Cyanosis, No Edema, Normal Pulses, No Tenderness/ Swelling Skin: No Rashes, No Breakdown, No Significant Lesion Neuro: Normal Speech, Strength at 5/5 X4 Ext, Normal Tone, Sensation Intact, Cranial Nerves 3-12 NL, Reflexes 2+, Other (Left AKA) Psych/Mental Status: Mental Status NL, Mood NL SALMA JAMES DO Sep 26, 2018 08:39
[2018-09-26] MEDS ORDERED: ALLO100T PO (08:45)
--- NOTE | 2018-09-26 08:46 | Physical Therapy Evaluation ---
PT Evaluation-General Medical Diagnosis Admission Date Sep 25, 2018 at 17:48 Medical Diagnosis: left AKA Onset Date: Sep 23, 2018 Therapy Diagnosis Therapy Diagnosis: impaired mobility, strength, endurance, ROM Height/Weight Height (Feet): 5 Height (Inches): 4.00 Weight (Pounds): 197 Weight (Ounces): 0.0 Precautions Precautions/Isolations: Standard Precautions Referral Physician: Salma Acevedo DO Reason for Referral: Evaluation/Treatment Medical History Pertinent Medical History: Arthritis, CAD, GERD, Heart Failure, HTN, IA Additional Medical History DDD, gout, hyperlipidemia, pulmonary embolism, PE, surg (heart catheterization, PTCA, lumbar sympathetic nerve block) Reviewed History: Yes Social History Home: Single Level Current Living Status: Spouse Entry Into Home: Ramp Prior/Core FIM Prior Level of Function Therapy Code Descriptions/Definitions Functional [place] Measure: 0=Not Assessed/NA 4=Minimal Assistance 1=Total Assistance 5=Supervision or Setup 2=Maximal Assistance 6=Modified [place] 3=Moderate Assistance 7=Complete [place] Therapy Quality Codes: 6 Independent with activity with or without an assistive device 5 Patient requires set up or clean up by helper. Patient completes activity by themselves 4 Supervision or touching assist (CGA). [place] provide cues , steadying assist 3 The helper provides less than half the effort to complete the activity 2 The helper provides more than half the effort to complete the activity 1 Dependent. The helper does all the effort to complete an activity 7 Patient refused to complete or attempt activity 9 The patient did not perform the activity before the current illness or injury 88 Not attempted due to Medical conditions or safety concerns Functional Abilities and Goals: Independent: Patient completed the activities by him/herself, with or without an assistive device, with no assistance from a helper. Needed Some Help: Patient needed partial assistance from another person to complete activities. Dependent: A helper completed the activities for the patient. Unknown: Not Applicable: Bed Mobility: 6 Transfers (B,C,W/C) (FIM): 6 Gait: 6 Wheelchair Mobility: 6 Indoor Mobility (Ambulation): Independent Prior Devices Use: Manual wheelchair, Motorized wheelchair, Walker Patient was using crutches previously for ambulation. states that they have crutches, walker, motorized wheelchair, bedside commode, shower chair. PT Evaluation-Current Subjective Patient in bed pre tx, agrees reluctantly to PT, has 10/10 pain in left leg. Patient is moaning in bed in pain, nurse has given him some pain meds and is going to check to see if she can give him something stronger. Patient needs a walker and wheelchair for use in the hospital. He does not have any stump shrinkers yet. Pt/Family Goals none, stated, patient can mostly only moan in pain Objective Patient Orientation: Person, Place, Situation ROM/Strength ROM Lower Extremities NT Strenght Lower Extremities NT due to pain, patient could not tolerate strength testing in either leg. Neuromuscular (Tone, Coordination, Reflexes) NT Sensory Hearing: Functional Transfers Therapy Code Descriptions/Definitions Functional [place] Measure: 0=Not Assessed/NA 4=Minimal Assistance 1=Total Assistance 5=Supervision or Setup 2=Maximal Assistance 6=Modified [place] 3=Moderate Assistance 7=Complete [place] Therapy Quality Codes: 6 Independent with activity with or without an assistive device 5 Patient requires set up or clean up by helper. Patient completes activity by themselves 4 Supervision or touching assist (CGA). [place] provide cues , steadying assist 3 The helper provides less than half the effort to complete the activity 2 The helper provides more than half the effort to complete the activity 1 Dependent. The helper does all the effort to complete an activity 7 Patient refused to complete or attempt activity 9 The patient did not perform the activity before the current illness or injury 88 Not attempted due to Medical conditions or safety concerns Transfers (B, C, W/C) (FIM): 5 Scootin Rollin Roll Left to Right (QC): 4 Supine to/from Sit: 5 Sit to/from Stand: 4 bed t/f WC(FIM only if WC use): 4 Sit to Lying (QC): 4 Lying to Sitting/Side of Bed(Q: 4 Sit to Stand (QC): 4 Chair/Wub-sh-Wqbgi Xfer(QC): 4 Patient performs bed mobility with SBA, supine <-> sit with CGA, sit <-> stand with CGA, transfers with CGA. Car transfer not able to be performed at this time due to pain. Patient moans and yells in pain throughout treatment but has steady balance during transfers. Gait Does the Patient Walk?: Yes Mode of Locomotion: Walk Anticipated Mode of Locomotion: Walk Gait (FIM): 1 Distance: 5' Gait Level of Assist: 4 Gait Persons Needed: 1 Gait Assistive Device: FWW Comments/Gait Description Patient was able to hop 5' with a rolling walker with CGA. Gait was antalgic and slow, but steady. Good foot clearance on the right side. Stairs If not tested on admit;explain stairs not performed at this time due to pain Balance Sitting Static: Normal Sitting Dynamic: Normal Standing Static: Fair Standing Dynamic: Fair Assessment/Needs Patient has impaired mobility, strength, endurance, ROM. Patient in recliner post tx with nurse call, phone, tray, in room. Legs elevated in chair. Rehab Potential: Fair PT Short Term Goals Short Term Goals Time Frame: Oct 03, 2018 Transfers (B,C,W/C) (FIM): 5 Gait (FIM): 1 Gait Distance Comment: 20' Gait Level of Assist: 4 Gait Assistive Device: FWW Wheelchair Distance: SEE PT GOALS PT Intermediate Goals Intermediate Goals PT Intermediate Goals Time Frame: Oct 17, 2018 Transfers (B,C,W/C) (FIM): 6 Sit to Lying (QC): 6 Lying-Sitting on Side/Bed(QC): 6 Sit to Stand (QC): 6 Rollin Roll Left to Right (QC): 6 Chair/Hza-sb-Ztoxs Xfer(QC): 6 Car Transfer (QC): 4 Gait (FIM): 2 Distance: 50' Walk 10 feet (QC): 4 Walk 10ft-Uneven Surface(QC): 4 Walk 50ft with 2 Turns (QC): 4 Gait Level of Assist: 5 Gait Assistive Device: FWW Wheelchair (FIM): 6 Distance: 150' Wheelchair Level of Assist: 6 Wheel 50 feet with 2 turns (QC: 6 Stairs (FIM): 1 # of Steps: 1 1 Step (curb) (QC): 4 Stairs Level Of Assist: 4 PT Plan Problem List Problem List: Activity Tolerance, Functional Strength, Safety, Balance, Gait, Transfer, Bed Mobility, ROM Treatment/Plan Treatment Plan: Continue Plan of Care Treatment Plan: Bed Mobility, Concurrent Therapy, Education, Functional Activity Brice, Functional Strength, Group Therapy, Gait, Safety, Therapeutic Exercise, Transfers Treatment Duration: Oct 17, 2018 Frequency: At least 5 of 7 days/Wk (IRF) Estimated Hrs Per Day: 1.5 hours per day Patient and/or Family Agrees t: Yes Safety Risks/Education Patient Education: Gait Training, Transfer Techniques, Correct Positioning, Safety Issues Teaching Recipient: Patient Teaching Methods: Demonstration, Discussion Response to Teaching: Reinforcement Needed Discharge Recommendations Plan Patient will perform bed mobility and transfer training, balance and endurance training, functional strengthening, stair training, gait training, and education , to improve functional mobility and independence at home. Therapy D/C Recommendations: Home w/ Family Support Time/GCodes Time In: 0815 Time Out: 0845 Total Billed Treatment Time: 30 Total Billed Treatment 1 visit REINA 30' EILEEN MAY PT Sep 26, 2018 08:46
[2018-09-26] MEDS: POLYETHYLENE GLYCOL 17 GM (MIRALAX) PACK PO SCH ×2 (09:07→20:03)
[2018-09-26] MEDS: GABAPENTIN 600 MG (NEURONTIN) TAB PO SCH ×4 (09:10→20:01)
[2018-09-26] MEDS: meTOprolol TARTRATE 25 MG (LOPRESSOR) TABLET PO SCH ×2 (09:10→20:01)
--- NOTE | 2018-09-26 09:27 | ST Cognitive Linguistic Eval ---
Speech Evaluation-General Medical Diagnosis left AKA Onset Date: Sep 26, 2018 Therapy Diagnosis Therapy Diagnosis: Cognitive-communication Precautions Precautions/Isolations: Fall Prevention, Standard Precautions Medical History Pertinent Medical History: Arthritis, CAD, GERD, Heart Failure, HTN, [place] Reviewed History: Yes Social History Current Living Status: Spouse Speech PLF-Current Status Prior Level of Function Patient lives at home with his spouse. He takes care of his daily needs with assistance as needed. Subjective Patient was in severe pain. Language Eval: Auditory Comprehends Simple Yes/No Ques: Functional Indent/Objects Multiple Peterson: Functional Ident/Pics in Multiple Peterson: Functional Follows 1-Step Commands: Functional Follows Complex Directions: Functional Follows General Conversations: Functional Language Eval: Verbal Language Completes Spontaneous Greeting: Functional Produces Auto, Serial Info: Functional Imitates Simple Words/Phrases: Functional Word Finding: Functional Requests Basic Needs: Functional States Basic Personal Info: Functional Expresses Complex Ideas: Functional Objective Cognitive Domain Attention: WNL Memory: WNL Problem Solving: Functional Executive Functions: [facility] Objective Formal/Standardized Tests [facility] Cognitive-communication Results Memory: Immediate 3/3, Delayed 3/3, Orientation 5/5, Problem Solving: Simple 5/5 , Complex 5/5 Oral Motor/Speech Production Within Functional Limits Impression Patient is a 48 year old male who was transferred to the ARU for therapy due to AKA. Patient is experiencing severe pain and asking for more pain medications. was present for the evaluation. Patient is within normal range of function for the test. Communication/Social Cognition Comprehension: 7 Expression: 7 Social Interaction: 6 Problem Solvin Memory: 7 Speech Patient Assess Expression of Ideas/Wants: Expression (4) Understanding Verbal Content: Understands (4) Brief Interview-Mental Status: Yes Temporal Orientation: Year: Correct (3) Temporal Orientation: Day: Correct (1) Recall : Wear to say "Sock": Yes, no cue required (2) Recall : Color: Yes, no cue required (2) Recall : Bed: Yes, no cue required (2) Memory/Recall Ability: Current season, None of the above were recalled Speech-Plan Patient/Family Goals Patient/Family Goals: Patient will return home with his post rehab. Treatment Plan Speech Therapy Treatment Plan: Discontinue ST Patient is not recommended for skilled ST at this time. Treatment Duration: Sep 26, 2018 Frequency: 1 time per week Estimated Hrs Per Day: .25 hour per day Rehab Potential: Fair Barriers to Learning: Patient is in a lot of pain. Pt/Family Agrees to Plan: Yes Safety Risks/Education Teaching Recipient: Patient, Significant Other Teaching Methods: Discussion Response to Teaching: Verbalize Understanding Education Topics Provided: Safety within his room. Time Speech Therapy Time In: 09:00 Speech Therapy Time Out: 09:15 Total Billed Time: 15 Billed Treatment Time 1, SPSNDCOMBUD Laureano Sep 26, 2018 09:27
[2018-09-26] MEDS ORDERED: GABAPENTIN 600 MG (NEURONTIN) TAB PO SCH (09:45)
[2018-09-26] MEDS: oxyCODONE ER 10 MG (OxyCONTIN CR) TAB PO SCH ×2 (09:49→20:01)
[2018-09-26] MEDS: ASPIRIN E.C. 81 MG (ECOTRIN) TAB PO SCH (09:51)
[2018-09-26] MEDS: CLOPIDOGREL 75 MG (PLAVIX) TABLET PO SCH (09:51)
[2018-09-26 09:52] LABS: BASOPHILS # (AUTO) 0.1 10^3/uL (0.0-0.1); BASOPHILS % (AUTO) 0 % (0-10); EOSINOPHILS # (AUTO) 0.4 10^3/uL (0.0-0.3); EOSINOPHILS % (AUTO) 4 % (0-10); HEMATOCRIT 41 % (40-54); HEMOGLOBIN 13.3 G/DL (13.3-17.7); LYMPHOCYTES # (AUTO) 2.3 X 10^3 (1.0-4.0); LYMPHOCYTES % (AUTO) 20 % (12-44); MEAN CORPUSCULAR HEMOGLOBIN 29 PG (25-34); MEAN CORPUSCULAR HGB CONC 33 G/DL (32-36); MEAN CORPUSCULAR VOLUME 89 FL (80-99); MONOCYTES # (AUTO) 1.2 X 10^3 (0.0-1.0); MONOCYTES % (AUTO) 10 % (0-12); NEUTROPHILS # (AUTO) 7.4 X 10^3 (1.8-7.8); NEUTROPHILS % (AUTO) 66 % (42-75); PLATELET COUNT 353 10^3/uL (130-400); RED CELL DISTRIBUTION WIDTH 14.9 % (10.0-14.5); WHITE BLOOD COUNT 11.2 10^3/uL (4.3-11.0)
[2018-09-26 10:12] LABS: ALANINE AMINOTRANSFERASE 10 U/L (0-55); ALBUMIN 3.9 GM/DL (3.2-4.5); ALKALINE PHOSPHATASE 97 U/L (40-136); BILIRUBIN,TOTAL 0.8 MG/DL (0.1-1.0); BUN/CREATININE RATIO 13; CALCIUM 9.4 MG/DL (8.5-10.1); CARBON DIOXIDE 28 MMOL/L (21-32); CHLORIDE 99 MMOL/L (98-107); CREATININE SERUM 0.71 MG/DL (0.60-1.30); GFR ESTIMATED > 60; GLUCOSE 100 MG/DL (70-105); POTASSIUM 4.1 MMOL/L (3.6-5.0); SODIUM 138 MMOL/L (135-145); TOTAL PROTEIN 6.7 GM/DL (6.4-8.2)
[2018-09-26] MEDS ORDERED: ASPI-983 PO (10:28)
[2018-09-26] MEDS ORDERED: OXYC10TA7 PO (10:40)
--- NOTE | 2018-09-26 10:49 | Physical Therapy Daily Note ---
PT Daily Note-Current Subjective Patient in recliner pre tx, agrees to PT, will be co-treating with OT due to pain and poor activity tolerance. Appearance Patient in bed post tx with nurse call,phone, tray, all needs met. Mental Status Patient Orientation: Person, Place, Situation Transfers Therapy Code Descriptions/Definitions Functional Moore Measure: 0=Not Assessed/NA 4=Minimal Assistance 1=Total Assistance 5=Supervision or Setup 2=Maximal Assistance 6=Modified Moore 3=Moderate Assistance 7=Complete Moore Therapy Quality Codes: 6 Independent with activity with or without an assistive device 5 Patient requires set up or clean up by helper. Patient completes activity by themselves 4 Supervision or touching assist (CGA). [place] provide cues , steadying assist 3 The helper provides less than half the effort to complete the activity 2 The helper provides more than half the effort to complete the activity 1 Dependent. The helper does all the effort to complete an activity 7 Patient refused to complete or attempt activity 9 The patient did not perform the activity before the current illness or injury 88 Not attempted due to Medical conditions or safety concerns Transfers (B, C, W/C) (FIM): 4 Scootin Rollin Supine to/from Sit: 5 Sit to/from Stand: 4 Bed to/from Chair: 4 Patient can perform a stand pivot transfer to either side with CGA using either a rolling walker or by pulling up to the bed in the wheelchair and using hands on wheelchair and bed and performing a squat pivot transfer. Gait Training Gait (FIM): 1 Distance: 30' Gait Level of Assist: 4 Gait Persons Needed: 1 Gait Assistive Device: FWW Wheelchair follow. Gait is antalgic, he is able to hop on right leg with fair foot clearance. Wheelchair Training Does the Pt Use a Wheelchair?: Yes Wheelchair (FIM): 5 Distance: 150'x2 Wheelchair Level of Assist: 5 Type of Wheelchair: Manual Exercises Standin way Ex=Flex, Abd, Ext (with left leg) Standing Reps: 10 Treatments Patient bathed on chair and standing, and then got dressed, and then wheeled to therapy gym, ambulated, stood in parallel bars and performed UE activities, and then LLE AROM while standing, wheeled back to room and got in bed. PT worked on standing during UE activities and bathing/dressing, transfers, wheelchair mobility, gait training. OT worked on bathing, dressing, UE activities, assist with ambulation. Assessment Current Status: Fair Progress improved ambulation PT Short Term Goals Short Term Goals Time Frame: Oct 03, 2018 Transfers (B,C,W/C) (FIM): 5 Gait (FIM): 1 Gait Distance Comment: 20' Gait Level of Assist: 4 Gait Assistive Device: FWW Wheelchair Distance: SEE PT GOALS PT Chcf Goals Sales Record Clerk Goals PT Chcf Goals Time Frame: Oct 17, 2018 Transfers (B,C,W/C) (FIM): 6 Sit to Lying (QC): 6 Lying-Sitting on Side/Bed(QC): 6 Sit to Stand (QC): 6 Rollin Roll Left to Right (QC): 6 Chair/Nhc-pd-Vhjdy Xfer(QC): 6 Car Transfer (QC): 4 Gait (FIM): 2 Distance: 50' Walk 10 feet (QC): 4 Walk 10ft-Uneven Surface(QC): 4 Walk 50ft with 2 Turns (QC): 4 Gait Level of Assist: 5 Gait Assistive Device: FWW Wheelchair (FIM): 6 Distance: 150' Wheelchair Level of Assist: 6 Wheel 50 feet with 2 turns (QC: 6 Stairs (FIM): 1 # of Steps: 1 1 Step (curb) (QC): 4 Stairs Level Of Assist: 4 PT Plan Problem List Problem List: Activity Tolerance, Functional Strength, Safety, Balance, Gait, Transfer, Bed Mobility, ROM Treatment/Plan Treatment Plan: Continue Plan of Care Treatment Plan: Bed Mobility, Concurrent Therapy, Education, Functional Activity Brice, Functional Strength, Group Therapy, Gait, Safety, Therapeutic Exercise, Transfers Treatment Duration: Oct 17, 2018 Frequency: At least 5 of 7 days/Wk (IRF) Estimated Hrs Per Day: 1.5 hours per day Patient and/or Family Agrees t: Yes Safety Risks/Education Patient Education: Gait Training, Transfer Techniques, Correct Positioning, Safety Issues Teaching Recipient: Patient Teaching Methods: Demonstration, Discussion Response to Teaching: Reinforcement Needed Time/GCodes Time In: 0945 Time Out: 1045 Total Billed Treatment Time: 60 Total Billed Treatment 1 visit GT 10' EX 15' FA 35' PT and OT co-treated for the whole 60 min. EILEEN MAY PT Sep 26, 2018 10:49
--- NOTE | 2018-09-26 10:50 | Consultation-Cardiology ---
HPI-Cardiology Cardiology Consultation Date of Consultation 09/26/18 Date of Admission Time Seen by Provider: 10:47 Indication: coronary artery disease HPI 48 years old gentleman with history of Buerger disease, coronary artery disease , hypertension hyperlipidemia. Underwent left AKA on September 23, 2018. Transfer to rehabilitation, receiving physical therapy. Still having pain at the surgical site. Denied any chest pain or palpitation. No syncope or near syncopal episodes. No claudications. Home Medications & Allergies Allergies: Coded Allergies: Penicillins (Unverified Allergy, Mild, 01/27/09) Home Medication List Reviewed: Yes HIN-Hnmrzm-Pvmjgs Hx Patient Social History Marital Status: Employed/Student: employed Alcohol Use: Denies Use Recreational Drug Use: No Type Used: Cigarettes 2nd Hand Smoke Exposure: No Recent Foreign Travel: No Recent Infectious Disease Expo: No Recent Hopitalizations: No Physical Abuse Screen: No Sexual Abuse: No Immunizations Up To Date Date of Pneumonia Vaccine: Jul 28, 2012 Date of Influenza Vaccine: Sep 25, 2018 Past Medical History past medical history as described below Family Medical History Significant Family History: Heart Disease, Vascular Disease Family History: Arthritis G8 BROTHER Blood clots 19 MOTHER ( of blood clot) Cardiac disorder 19 FATHER Diabetes mellitus G8 BROTHER FH: cancer paternal grandmother FHx: inflammatory bowel disease G8 BROTHER No Family History of: FH: sudden cardiac (SCD) Review of Systems Constitutional: see HPI, malaise EENTM: see HPI, no symptoms reported Respiratory: see HPI; No cough, No dyspnea on exertion, No hemoptysis, No orthopnea, No phlegm, No short of breath, No stridor, No wheezing, No other Cardiovascular: see HPI; No chest pain, No edema, No Hx of Intervention, No palpitations, No syncope; vascular heart diseas; No other Gastrointestinal: no symptoms reported, see HPI Genitourinary: no symptoms reported, see HPI Musculoskeletal: see HPI, back pain, other (left AKA) Skin: no symptoms reported, see HPI Psychiatric/Neurological: No Symptoms Reported, See HPI Reviewed Test Results Reviewed Test Results Lab Laboratory Tests Test 09/26/18 09:30 Range/Units White Blood Count 11.2 H 4.3-11.0 10^3/uL Red Blood Count 4.55 4.35-5.85 10^6/uL Hemoglobin 13.3 13.3-17.7 G/DL Hematocrit 41 40-54 % Mean Corpuscular Volume 89 80-99 FL Mean Corpuscular Hemoglobin 29 25-34 PG Mean Corpuscular Hemoglobin Concent 33 32-36 G/DL Red Cell Distribution Width 14.9 H 10.0-14.5 % Platelet Count 353 130-400 10^3/uL Mean Platelet Volume 9.0 7.4-10.4 FL Neutrophils (%) (Auto) 66 42-75 % Lymphocytes (%) (Auto) 20 12-44 % Monocytes (%) (Auto) 10 0-12 % Eosinophils (%) (Auto) 4 0-10 % Basophils (%) (Auto) 0 0-10 % Neutrophils # (Auto) 7.4 1.8-7.8 X 10^3 Lymphocytes # (Auto) 2.3 1.0-4.0 X 10^3 Monocytes # (Auto) 1.2 H 0.0-1.0 X 10^3 Eosinophils # (Auto) 0.4 H 0.0-0.3 10^3/uL Basophils # (Auto) 0.1 0.0-0.1 10^3/uL Sodium Level 138 135-145 MMOL/L Potassium Level 4.1 3.6-5.0 MMOL/L Chloride Level 99 98-107 MMOL/L Carbon Dioxide Level 28 21-32 MMOL/L Anion Gap 11 5-14 MMOL/L Blood Urea Nitrogen 9 7-18 MG/DL Creatinine 0.71 0.60-1.30 MG/DL Estimat Glomerular Filtration Rate > 60 BUN/Creatinine Ratio 13 Glucose Level 100 70-105 MG/DL Calcium Level 9.4 8.5-10.1 MG/DL Corrected Calcium 9.5 8.5-10.1 MG/DL Total Bilirubin 0.8 0.1-1.0 MG/DL Aspartate Amino Transf (AST/SGOT) 18 5-34 U/L Alanine Aminotransferase (ALT/SGPT) 10 0-55 U/L Alkaline Phosphatase 97 40-136 U/L Total Protein 6.7 6.4-8.2 GM/DL Albumin 3.9 3.2-4.5 GM/DL Physical Exam Vital Signs Vital Signs - First Documented 09/25/18 18:27 Temp 99.2 Pulse 99 Resp 18 B/P (MAP) 111/75 (87) Pulse Ox 92 O2 Delivery Room Air Capillary Refill : Height, Weight, BMI Height: 5'4.00" Weight: 197lbs. 0.0oz. 89.108361xf; 33.8 BMI Method:Stated General Appearance: No Apparent Distress, WD/WN Eyes: Bilateral Eye Normal Inspection, Bilateral Eye PERRL, Bilateral Eye EOMI HEENT: PERRL/EOMI, TMs Normal, Normal ENT Inspection, Pharynx Normal Neck: Full Range of Motion, Normal Inspection, Non Tender, Supple, Carotid Bruit Respiratory: Chest Non Tender, Lungs Clear, Normal Breath Sounds, No Accessory Muscle Use, No Respiratory Distress Cardiovascular: Regular Rate, Rhythm, No Edema, No Gallop, No JVD, No Murmur Gastrointestinal: Normal Bowel Sounds, No Organomegaly, No Pulsatile Mass, Non Tender, Soft Back: Normal Inspection, No CVA Tenderness, No Vertebral Tenderness Extremity: Normal Range of Motion, Non Tender, No Pedal Edema, Other (left AKA) Neurologic/Psychiatric: Alert, Oriented x3, No Motor/Sensory Deficits, Normal Mood/Affect Skin: Normal Color, Warm/Dry Lymphatic: No Adenopathy A/P-Cardiology Admission Diagnosis Left AKA Peripheral arterial disease Coronary artery disease Hypertension Hyperlipidemia Assessment/Plan Peripheral arterial disease status post left AKA, still having pain. Had extensive disease, seen and followed by Dr. Marcelo Coronary artery disease, history of Promus drug-eluting stent placement using 2.512 mm in the circumflex artery in July [address] Alcocer after having myocardial infarction. Most recent cardiac catheterization done July 2016 revealed patent stent to circumflex artery with otherwise nonobstructive disease , had non-ST elevation myocardial infarction on July 12, 2017 had total occlusion of the obtuse marginal branch successful the plan of resolute integrity 2.526 mm with good results. Total occlusion of the right coronary artery with failed attempt for intervention, referred to Dr. Warner, had intervention on the right coronary artery with 3 drug-eluting stent overlapping in the right coronary artery. Patient had non-ST elevation MS on July 12, 2018 and underwent cardiac catheterization with Dr. Duran revealing stent thrombosis and occlusion of the distal/mid RCA stents to date successfully with PTCA. Integrilin infusion 12 hour. He is maintained on Brilinta and aspirin at this time. History of congestive heart failure, improved, history of Severe left ventricular systolic dysfunction, improved with intervention and maximizing medical therapy, ejection fraction 45-50 percent. Continue to monitor History of deep venous thrombosis/pulmonary embolism, has been maintained on Coumadin in the past, Currently on hold while on aspirin and Plavix Tobaccoism, stopped smoking in June 2017. Continue to monitor Hyperlipidemia, continue to monitor lipids History of gastroesophageal reflux disease. History of elevated liver enzymes, monitor liver enzymes History of deep venous thrombosis. Clinical Quality Measures DVT/VTE Risk/Contraindication: Risk Factor Score Per Nursin RFS Level Per Nursing on Admit: 4+=Very High JEFFERY DE SOUZA MD Sep 26, 2018 10:50
[2018-09-26] MEDS: PANTOPRAZOLE 20 MG TABLET (PROTONIX) PO SCH (10:59)
[2018-09-26] MEDS: ISOSORBIDE MONONITRATE 30 MG (IMDUR) TAB PO SCH (10:59)
[2018-09-26] MEDS: LOSARTAN 50 MG (COZAAR) TAB PO SCH (11:00)
[2018-09-26] MEDS: ALLOPURINOL 300 MG (ZYLOPRIM) TAB PO SCH (11:00)
[2018-09-26] MEDS ORDERED: METO-333 PO (11:00)
--- NOTE | 2018-09-26 11:07 | NUR ---
UPDATED THE MED REC WITH THE DISCHARGE MED LIST FROM PREVIOUS FACILITY. I ALSO CALLED [facility] [employer] AND [facility] FOR LISTS OF RECENTLY FILLED MEDICATIONS TO COMPARE. THE PATIENT STATES HE IS NOW USING [facility] BUT SOME OF HIS 90 DAY SUPPLIES WERE LAST FILLED AT [facility]. [facility] FILLED THE METOPROLOL ER 25MG DAILY #30 ON 09-05-18 HOWEVER PATIENT'S STATES THAT WAS AN ERROR AND THEY HAVE BEEN TAKING IT BID LIKE IT WAS PRESCRIBED PREVIOUSLY. [facility] HAD FILLED THE METOPROLOL TARTRATE 25MG BID #60 07-13-18. I EXPLAINED THERE IS A DIFFERENCE BETWEEN THE SUCCINATE AND TARTRATE. SHE STATES THEY WILL GET WITH THE TO GET THE CORRECT SCRIPT SENT IN TO [facility] BUT HE SHOULD BE TAKING THE 25MG BID IT WAS PRESCRIBED PREVIOUSLY. I LEFT IT ON THE MED REC IT WAS FILLED BY [facility] AND HOW THE DISCHARGE MED LIST HAD IT. [facility] FILLED: 09-18-18 LOSARTAN 50MG DAILY #30 09-18-18 ALLOPURINOL 100MG DAILY #90 09-08-18 CLOPIDOGREL 75MG DAILY #30 09-05-18 BRILINTA 90MG BID #60 (WAS STOPPED 2 WEEKS PRIOR TO SURGERY) 09-05-18 GABAPENTIN 600MG QID #120 09-05-18 VENLAFAXINE ER 37.5MG DAILY #30 (NO LONGER TAKING, DID NOT FEEL IT WORKED) 09-05-18 METOPROLOL SUCCINATE 25MG DAILY #30(ER FILLED BY [facility] SEE ABOVE FOR DETAILS) 09-05-18 LISINOPRIL 2.5MG DAILY #30 (STATES HE IS NOT TAKING, UNSURE WHY IT WAS FILLED) 09-05-18 CARISOPRODOL 350MG BID PRN MUSCLE SPASMS #24 (ONLY TAKES AT HS DUE TO DROWSY) 09-05-18 OXYCODONE 10MG Q4-6H PRN #180 08-11-18 IMDUR ER 30MG DAILY #90 [facility] FILLED: 09-23-18 NIFEDIPINE 10MG TID (NOT PICKED UP, PATIENT STATES HE IS NO LONGER TAKING) 07-13-18 ASPIRIN 81MG (PATIENT IS TAKING OTC) 07-13-18 METOPROLOL TARTRATE 25MG BID #60 07-10-18 GEMFIBROZIL 600MG BID #180 07-08-18 ATORVASTATIN 40MG DAILY #90 (WAS ON DISCHARGE LIST 20MG IN ERROR) PATIENT ALSO TAKES OMEPRAZOLE DAILY, FISH OIL TID, AND ASPIRIN 81MG DAILY OTC. GAVE MED REC CORRECTION FOR LIPITOR DOSE TO PHARMACIST ZOE FOR CLARIFICATION.
[2018-09-26] MEDS: OMEGA 3 (FISH OIL) 1000 MG CAP PO SCH ×2 (11:53→17:30)
--- NOTE | 2018-09-26 11:59 | Occupational Therapy Eval ---
OT Evaluation-General/PLF Medical Diagnosis Admission Date Sep 25, 2018 at 17:48 Medical Diagnosis: left AKA Onset Date: Sep 26, 2018 Therapy Diagnosis Therapy Diagnosis: decreased self care skills Height/Weight Height (Feet): 5 Height (Inches): 4.00 Weight (Pounds): 197 Weight (Ounces): 0.0 Precautions Precautions/Isolations: Fall Prevention, Standard Precautions Safety Interventions: None Referral Physician: Salma Acevedo DO Medical History Pertinent Medical History: Arthritis, CAD, GERD, Heart Failure, HTN, [place] Additional Medical History hyperlipidemia, gout, PE Current History Pt s/p left AKA Reviewed History: Yes Social History Home: Single Level Current Living Status: Spouse Entry Into Home: Ramp ADL-Prior Level of Function Therapy Code Descriptions/Definitions Functional Pickett Measure: 0=Not Assessed/NA 4=Minimal Assistance 1=Total Assistance 5=Supervision or Setup 2=Maximal Assistance 6=Modified [place] 3=Moderate Assistance 7=Complete [place] Therapy Quality Codes: 6 Independent with activity with or without an assistive device 5 Patient requires set up or clean up by helper. Patient completes activity by themselves 4 Supervision or touching assist (CGA). [place] provide cues , steadying assist 3 The helper provides less than half the effort to complete the activity 2 The helper provides more than half the effort to complete the activity 1 Dependent. The helper does all the effort to complete an activity 7 Patient refused to complete or attempt activity 9 The patient did not perform the activity before the current illness or injury 88 Not attempted due to Medical conditions or safety concerns Functional Abilities and Goals: Independent: Patient completed the activities by him/herself, with or without an assistive device, with no assistance from a helper. Needed Some Help: Patient needed partial assistance from another person to complete activities. Dependent: A helper completed the activities for the patient. Unknown: Not Applicable: ADL PLOF Comments Pt states he was independent with most basic self care, but spouse assisted as needed. Used crutches or walker for mobility. Self Care: Needed Some Help OT Current Status Subjective Pt agrees to therapy this am. Pt reports 10/10 pain in left LE. RN is aware and provides pain medication Mental Status/Objective Patient Orientation: Person, Place, Time, Situation Current Glasses/Contacts: Yes Hearing Aids: No Dentures/Partials: No Hand Dominance: Right Upper Extremity ROM Grossly WFL Upper Extremity Coordination Intact Upper Extremity Sensation Intact per pt report ADL-Treatment ADL-Current Co-treat with PT during treatment secondary to pt's pain level and decreased activity tolerance. Pt completed sponge bath while seated in chair. Able to wash all areas except buttocks. Pt moves slowly and moans with pain during activity. CGA for balance during standing to wash buttocks. Don pullover shirt with SBA. Pt able to thread right LE into underwear and pants, but requires assist with left residual limb secondary to pain. Sit to stand with CGA for balance. Pt able to complete pant hike with minimal assistance. Pt donned right sock with CGA for balance and increased time. Comb hair with set up. Transfer to w/c with FWW with CGA. Pt performed w/c mobility to therapy gym. Pt performed gait with FWW. Slow pace, see PT note for distance. Rest break after ambulation. Pt completed tabletop peg activity with bilateral UE while standing to increase standing balance and activity tolerance. Pt required CGA to SBA for balance during activity. One seated rest break secondary to fatigue. Pt performed standing activity in parallel bars to increase standing balance and safety for mobility and ADL tasks. Pt returned to room, transferred to EOB with CGA. Sit to supine with SBA. Pt resting in bed with needs met after session. Co-treat with PT. OT focusing on ADL completion, UE management, and safety. PT focusing on balance and mobility for functional tasks. Grooming (FIM): 5 Bathing (FIM): 4 Shower/Bathe Self (QC): 3 Upper Body Dressing (FIM): 5 Upper Body Dressing (QC): 4 Lower Body Dressing (FIM): 4 Lower Body Dressing (QC): 3 On/Off Footwear (QC): 4 Toilet/Commode Transfer (FIM): 4 Education OT Patient Education: Rehab process Teaching Recipient: Patient Teaching Methods: Discussion Response to Teaching: Verbalize Understanding OT Short Term Goals Short Term Goals Transfers (B,C,W/C) (FIM): 5 1=Demonstrate adherence to instructed precautions during ADL tasks. 2=Patient will verbalize/demonstrate understanding of assistive devices/ modifications for ADL. 3=Patient will improve strength/tolerance for activity to enable patient to perform ADL's. OT Mcfp Goals Mcfp Goals Time Frame: Oct 17, 2018 Eating (FIM): 7 Eating (QC): 6 Groomin Oral Hygiene (QC): 6 Bathing(FIM): 6 Shower/Bathe Self (QC): 6 Upper Body Dressing(FIM): 6 Upper Body Dressing (QC): 6 Lower Body Dressing(FIM): 6 Lower Body Dressing (QC): 6 On/Off Footwear (QC): 6 Toileting Hygiene (QC): 6 Toilet/Commode Transfer(FIM): 6 Toilet/Commode Transfer (QC): 6 Shower Transfer(FIM): 5 Additional Goals: 1-Demonstrate ADL Tasks, 2-Verbalize Understanding, 3- ImproveStrength/Brice 1=Demonstrate adherence to instructed precautions during ADL tasks. 2=Patient will verbalize/demonstrate understanding of assistive devices/ modifications for ADL. 3=Patient will improve strength/tolerance for activity to enable patient to perform ADL's. OT Education/Plan Problem List/Assessment Assessment: Decreased Activ Tolerance, Dependent Transfers, Impaired Self-Care Skills Pt s/p left AKA with decreased mobility, ADL functioning, and activity tolerance. Currently limited by pain. Pt to benefit from skilled OT intervention for ADL training, transfers, strengthening, and safety education to increase functional independence and allow safe discharge. Discharge Recommendations Plan/Recommendations: Continue POC Treatment Plan/Plan of Care Treatment,Training & Education: Yes Patient would benefit from OT for education, treatment and training to promote independence in ADL's, mobility, safety and/or upper extremity function for ADL' s. Plan of Care: ADL Retraining, Functional Mobility, Group Exercise/Act as Ind, UE Funct Exercise/Act Treatment Duration: Oct 17, 2018 Frequency: Modified Program (IRF) Estimated Hrs Per Day: 1.5 hours per day Agreement: Yes Rehab Potential: Good Time/GCodes Start Time: 09:30 Stop Time: 10:45 Total Time Billed (hr/min): 75 Billed Treatment Time 1 visit, EVM(15minutes), ADLx2(30minutes), FAx2(30minutes) Co-treat with PT 60minutes KITTY HOLDER OT Sep 26, 2018 11:59
--- NOTE | 2018-09-26 11:59 | Occupational Ther Daily Note ---
OT Current Status-Daily Note Subjective Pt alert, lying in bed. Pt agrees to therapy. C/o pain, did not rate, nrsg notified and reported that it was not time for meds. Mental Status/Objective Patient Orientation: Person, Place, Time, Situation Therapy Code Descriptions/Definitions Functional [place] Measure: 0=Not Assessed/NA 4=Minimal Assistance 1=Total Assistance 5=Supervision or Setup 2=Maximal Assistance 6=Modified [place] 3=Moderate Assistance 7=Complete [place] ADL-Treatment Therapy Code Descriptions/Definitions Functional [place] Measure: 0=Not Assessed/NA 4=Minimal Assistance 1=Total Assistance 5=Supervision or Setup 2=Maximal Assistance 6=Modified [place] 3=Moderate Assistance 7=Complete [place] Therapy Quality Codes: 6 Independent with activity with or without an assistive device 5 Patient requires set up or clean up by helper. Patient completes activity by themselves 4 Supervision or touching assist (CGA). [place] provide cues , steadying assist 3 The helper provides less than half the effort to complete the activity 2 The helper provides more than half the effort to complete the activity 1 Dependent. The helper does all the effort to complete an activity 7 Patient refused to complete or attempt activity 9 The patient did not perform the activity before the current illness or injury 88 Not attempted due to Medical conditions or safety concerns Other Treatment Pt able to go from supine to sitting EOB with HOB raised and using bed rail, mod I. CGA for safety SPT using FWW from recliner to w/c. Pt then able to complete w/c mobility throughout ARU efficiently. Pt positioned w/c in front of UBE in therapy gym. Pt completes UBE for 15 min at 15 winters resistance to increase strength and activity tolerance for daily functional tasks. Pt then propelled w/c back to room and transferred into bed, SPT with CGA. Completes bed mobility by self using bed rails when necessary. After therapy, nrsg in room, pt lying in bed with call light/phone in reach. All needs met in room. OT Short Term Goals Short Term Goals Transfers (B,C,W/C) (FIM): 5 1=Demonstrate adherence to instructed precautions during ADL tasks. 2=Patient will verbalize/demonstrate understanding of assistive devices/ modifications for ADL. 3=Patient will improve strength/tolerance for activity to enable patient to perform ADL's. OT Intermediate Goals Intermediate Goals 1=Demonstrate adherence to instructed precautions during ADL tasks. 2=Patient will verbalize/demonstrate understanding of assistive devices/ modifications for ADL. 3=Patient will improve strength/tolerance for activity to enable patient to perform ADL's. OT Education/Plan Discharge Recommendations Plan/Recommendations: Continue POC Treatment Plan/Plan of Care Patient would benefit from OT for education, treatment and training to promote independence in ADL's, mobility, safety and/or upper extremity function for ADL' s. Treatment Duration: Oct 17, 2018 Frequency: At least 5 of 7 days/Wk (IRF) Estimated Hrs Per Day: 1.5 hours per day Rehab Potential: Good Time/GCodes Start Time: 11:15 Stop Time: 12:00 Total Time Billed (hr/min): 45 Billed Treatment Time 1 visit-FA 2 (30 min) EX 1 (15 min) LEX BRUNSON Sep 26, 2018 11:58
--- NOTE | 2018-09-26 12:40 | NUR ---
RATES PAIN A "7" NOW, BUT STATES IT'S "FINE AND I'M NOT WORRIED ABOUT IT".
--- NOTE | 2018-09-26 14:11 | Occupational Ther Daily Note ---
OT Current Status-Daily Note Subjective Pt in bed, agrees to treatment. Pt reports 9/10 pain in left LE. Mental Status/Objective Therapy Code Descriptions/Definitions Functional [place] Measure: 0=Not Assessed/NA 4=Minimal Assistance 1=Total Assistance 5=Supervision or Setup 2=Maximal Assistance 6=Modified [place] 3=Moderate Assistance 7=Complete [place] ADL-Treatment Pt in bed, has just finished lunch. Pt states he had no difficulty feeding himself. Pt supine to sit with supervision. Pt demonstrated ability to perform transfer to [facility] with CGA using FWW. Transfer to w/c with CGA using FWW. Slow mobility. Therapy Code Descriptions/Definitions Functional [place] Measure: 0=Not Assessed/NA 4=Minimal Assistance 1=Total Assistance 5=Supervision or Setup 2=Maximal Assistance 6=Modified [place] 3=Moderate Assistance 7=Complete [place] Therapy Quality Codes: 6 Independent with activity with or without an assistive device 5 Patient requires set up or clean up by helper. Patient completes activity by themselves 4 Supervision or touching assist (CGA). [place] provide cues , steadying assist 3 The helper provides less than half the effort to complete the activity 2 The helper provides more than half the effort to complete the activity 1 Dependent. The helper does all the effort to complete an activity 7 Patient refused to complete or attempt activity 9 The patient did not perform the activity before the current illness or injury 88 Not attempted due to Medical conditions or safety concerns Eating (FIM): 6 Eating (QC): 6 Toilet/Commode Transfer (FIM): 4 Toilet Transfer (QC): 4 (CGA) Other Treatment Pt performed w/c mobility to therapy gym without assistance. Pt performed bilateral UE exercises to increase strength needed for ADLs and transfers. Pt performed shoulder flexion, abduction, biceps curls, triceps extension, and wrist flex/ext x15 reps with 2# weights. Rest breaks between exercises. Bilateral hand insecticide mixer exercises x20 with moderate resistance therapy foam. Care transferred to PT after session. OT Short Term Goals Short Term Goals Transfers (B,C,W/C) (FIM): 5 1=Demonstrate adherence to instructed precautions during ADL tasks. 2=Patient will verbalize/demonstrate understanding of assistive devices/ modifications for ADL. 3=Patient will improve strength/tolerance for activity to enable patient to perform ADL's. OT Correction Goals Correction Goals Time Frame: Oct 17, 2018 Eating (FIM): 7 Eating (QC): 6 Groomin Oral Hygiene (QC): 6 Bathing(FIM): 6 Shower/Bathe Self (QC): 6 Upper Body Dressing(FIM): 6 Upper Body Dressing (QC): 6 Lower Body Dressing(FIM): 6 Lower Body Dressing (QC): 6 On/Off Footwear (QC): 6 Toileting Hygiene (QC): 6 Toilet/Commode Transfer(FIM): 6 Toilet/Commode Transfer (QC): 6 Shower Transfer(FIM): 5 Additional Goals: 1-Demonstrate ADL Tasks, 2-Verbalize Understanding, 3- ImproveStrength/Brice 1=Demonstrate adherence to instructed precautions during ADL tasks. 2=Patient will verbalize/demonstrate understanding of assistive devices/ modifications for ADL. 3=Patient will improve strength/tolerance for activity to enable patient to perform ADL's. OT Education/Plan Discharge Recommendations Plan/Recommendations: Continue POC Treatment Plan/Plan of Care Patient would benefit from OT for education, treatment and training to promote independence in ADL's, mobility, safety and/or upper extremity function for ADL' s. Plan of Care: ADL Retraining, Functional Mobility, Group Exercise/Act as Ind, UE Funct Exercise/Act Treatment Duration: Oct 17, 2018 Frequency: Modified Program (IRF) Estimated Hrs Per Day: 1.5 hours per day Agreement: Yes Rehab Potential: Good Time/GCodes Start Time: 13:15 Stop Time: 13:45 Total Time Billed (hr/min): 30 Billed Treatment Time 1 visit, EXx2(30minutes) KITTY HOLDER OT Sep 26, 2018 14:11
--- NOTE | 2018-09-26 14:13 | Physical Therapy Daily Note ---
PT Daily Note-Current Subjective Patient in therapy gym pre tx, agrees to PT, has 8/10 pain in left leg. Appearance Patient in bed post tx with nurse call, phone, tray, all needs met. in room. Mental Status Patient Orientation: Person, Place, Situation Transfers Therapy Code Descriptions/Definitions Functional [place] Measure: 0=Not Assessed/NA 4=Minimal Assistance 1=Total Assistance 5=Supervision or Setup 2=Maximal Assistance 6=Modified [place] 3=Moderate Assistance 7=Complete [place] Therapy Quality Codes: 6 Independent with activity with or without an assistive device 5 Patient requires set up or clean up by helper. Patient completes activity by themselves 4 Supervision or touching assist (CGA). [place] provide cues , steadying assist 3 The helper provides less than half the effort to complete the activity 2 The helper provides more than half the effort to complete the activity 1 Dependent. The helper does all the effort to complete an activity 7 Patient refused to complete or attempt activity 9 The patient did not perform the activity before the current illness or injury 88 Not attempted due to Medical conditions or safety concerns Transfers (B, C, W/C) (FIM): 5 Scootin Rollin Supine to/from Sit: 5 Sit to/from Stand: 5 Bed to/from Chair: 5 Exercises Supine Ex: Glut sets, Straight leg raise, Hip abd/add Supine Reps: 10 (LLE except for glut sets) NuStep Minutes: 15 NuStep Workload: 4 (left leg not used) Treatments bed mobility and transfers, functional strengthening Assessment Current Status: Fair Progress improving stand pivot transfers PT Short Term Goals Short Term Goals Time Frame: Oct 03, 2018 Transfers (B,C,W/C) (FIM): 5 Gait (FIM): 1 Gait Distance Comment: 20' Gait Level of Assist: 4 Gait Assistive Device: FWW Wheelchair Distance: 150'x2 PT Alf Goals Button [place]yer Goals PT Alf Goals Time Frame: Oct 17, 2018 Transfers (B,C,W/C) (FIM): 6 Sit to Lying (QC): 6 Lying-Sitting on Side/Bed(QC): 6 Sit to Stand (QC): 6 Rollin Roll Left to Right (QC): 6 Chair/Ify-rw-Qktzw Xfer(QC): 6 Car Transfer (QC): 4 Gait (FIM): 2 Distance: 50' Walk 10 feet (QC): 4 Walk 10ft-Uneven Surface(QC): 4 Walk 50ft with 2 Turns (QC): 4 Gait Level of Assist: 5 Gait Assistive Device: FWW Wheelchair (FIM): 6 Distance: 150' Wheelchair Level of Assist: 6 Wheel 50 feet with 2 turns (QC: 6 Stairs (FIM): 1 # of Steps: 1 1 Step (curb) (QC): 4 Stairs Level Of Assist: 4 PT Plan Problem List Problem List: Activity Tolerance, Functional Strength, Safety, Balance, Gait, Transfer, Bed Mobility, ROM Treatment/Plan Treatment Plan: Continue Plan of Care Treatment Plan: Bed Mobility, Concurrent Therapy, Education, Functional Activity Brice, Functional Strength, Group Therapy, Gait, Safety, Therapeutic Exercise, Transfers Treatment Duration: Oct 17, 2018 Frequency: At least 5 of 7 days/Wk (IRF) Estimated Hrs Per Day: 1.5 hours per day Patient and/or Family Agrees t: Yes Safety Risks/Education Patient Education: Transfer Techniques, Correct Positioning, Safety Issues Teaching Recipient: Patient Teaching Methods: Demonstration, Discussion Response to Teaching: Reinforcement Needed Time/GCodes Time In: 1345 Time Out: 1515 Total Billed Treatment Time: 30 Total Billed Treatment 1 visit EX 20' FA 10' EILEEN MAY PT Sep 26, 2018 14:13
[2018-09-26] MEDS: RT-ALBUTEROL/IPRATROPIUM 3 ML (DUONEB) VIAL INH SCH ×2 (14:47→20:20)
[2018-09-26] MEDS: GEMFIBROZIL 600 MG (LOPID) TAB PO SCH (15:43)
[2018-09-26 18:00] VITALS: BP 108/73
--- NOTE | 2018-09-26 18:00 | NUR ---
PAIN MUCH BETTER CONTROLLED SINCE CHANGE OF PAIN MEDICATIONS.
[2018-09-26] MEDS: CARISOPRODOL 350 MG (SOMA) TAB PO SCH (20:01)
[2018-09-26] MEDS: ATORVASTATIN 20 MG (LIPITOR) TABLET PO SCH (20:01)
[2018-09-27] MEDS: oxyCODONE/APAP 10/325MG (PERCOCET 10) TABLET PO PRN ×2 (00:08→12:14)
[2018-09-27 06:00] VITALS: BP 118/80
[2018-09-27] MEDS: GEMFIBROZIL 600 MG (LOPID) TAB PO SCH ×2 (07:07→16:06)
[2018-09-27] MEDS: OMEGA 3 (FISH OIL) 1000 MG CAP PO SCH ×3 (07:07→16:06)
[2018-09-27] MEDS: RT-ALBUTEROL/IPRATROPIUM 3 ML (DUONEB) VIAL INH SCH ×3 (08:33→19:04)
[2018-09-27] MEDS: PANTOPRAZOLE 20 MG TABLET (PROTONIX) PO SCH (08:37)
[2018-09-27] MEDS: ALLOPURINOL 300 MG (ZYLOPRIM) TAB PO SCH (08:37)
[2018-09-27] MEDS: GABAPENTIN 600 MG (NEURONTIN) TAB PO SCH ×4 (08:37→20:06)
[2018-09-27] MEDS: CLOPIDOGREL 75 MG (PLAVIX) TABLET PO SCH (08:37)
[2018-09-27] MEDS: ISOSORBIDE MONONITRATE 30 MG (IMDUR) TAB PO SCH (08:37)
[2018-09-27] MEDS: meTOprolol TARTRATE 25 MG (LOPRESSOR) TABLET PO SCH ×2 (08:38→20:06)
[2018-09-27] MEDS: oxyCODONE ER 10 MG (OxyCONTIN CR) TAB PO SCH ×2 (08:38→20:06)
[2018-09-27] MEDS: POLYETHYLENE GLYCOL 17 GM (MIRALAX) PACK PO SCH ×2 (08:38→21:00)
[2018-09-27] MEDS: LOSARTAN 50 MG (COZAAR) TAB PO SCH (08:38)
[2018-09-27] MEDS: ASPIRIN E.C. 81 MG (ECOTRIN) TAB PO SCH (08:38)
--- NOTE | 2018-09-27 10:39 | Physical Therapy Daily Note ---
PT Daily Note-Current Subjective Pt sitting up in recliner after just finishing with OT. Pt agrees to PT but reports continued pain in L stump. Pt received pain med approx. 30 minutes previous to Pt tx. Pain Numeric Pain Scale: 10-Worst Possible Pain Location: Incisional, Left Location Body Site: Thigh Pain Description: Tightness, Sharp Mental Status Patient Orientation: Person, Place, Time, Situation Transfers Therapy Code Descriptions/Definitions Functional [place] Measure: 0=Not Assessed/NA 4=Minimal Assistance 1=Total Assistance 5=Supervision or Setup 2=Maximal Assistance 6=Modified [place] 3=Moderate Assistance 7=Complete [place] Therapy Quality Codes: 6 Independent with activity with or without an assistive device 5 Patient requires set up or clean up by helper. Patient completes activity by themselves 4 Supervision or touching assist (CGA). [place] provide cues , steadying assist 3 The helper provides less than half the effort to complete the activity 2 The helper provides more than half the effort to complete the activity 1 Dependent. The helper does all the effort to complete an activity 7 Patient refused to complete or attempt activity 9 The patient did not perform the activity before the current illness or injury 88 Not attempted due to Medical conditions or safety concerns Scootin Rollin Supine to/from Sit: 5 Sit to/from Stand: 5 Sit to Lying (QC): 5 Sit to Stand (QC): 5 Chair/Izz-ca-Waqva Xfer(QC): 5 Bed to/from Chair: 5 PROGRAM CLERK raised mat to height more comparable to bed at home. Pt had to work a little hard but able to complete SBA. Weight Bearing Right Lower Extremity: Right Full Weight Bearing Wheelchair Training Does the Pt Use a Wheelchair?: Yes Wheelchair Distance: 3=150 ft Distance: 150' Wheelchair Level of Assist: 5 Wheel 50 ft with 2 turns (QC): 5 Wheel 150 ft (QC): 5 Type of Wheelchair: Manual Treatments Pt transfers from recliner to W/C using SPT. Pt propels W/C in hallway in route to Therapy Gym. Pt transfers to EOM using SPT. PROGRAM CLERK assists pt with stretching LLE as well as AB/ADD to help promote ROM as hip. Pt uses NuStep for 10m at WL 4 for increasing strength and activity tolerance. Pt returns to room to rest with all needs met. Assessment Current Status: Fair Progress PROGRAM CLERK encourages pt to continue to stretch and work on extension of L hip as much as possible throughout the day to prevent contracture as decrease pain when PT works on this during tx. Pt struggles with self limiting due to pain. PT Short Term Goals Short Term Goals Time Frame: Oct 03, 2018 Transfers (B,C,W/C) (FIM): 5 Gait (FIM): 1 Gait Distance Comment: 20' Gait Level of Assist: 4 Gait Assistive Device: FWW Wheelchair Distance: 150'x2 PT Laboratory Tech Goals Penit[place]iary Goals PT Penitentiary Goals Time Frame: Oct 17, 2018 Transfers (B,C,W/C) (FIM): 6 Sit to Lying (QC): 6 Lying-Sitting on Side/Bed(QC): 6 Sit to Stand (QC): 6 Rollin Roll Left to Right (QC): 6 Chair/Xmc-fs-Pgueq Xfer(QC): 6 Car Transfer (QC): 4 Gait (FIM): 2 Distance: 50' Walk 10 feet (QC): 4 Walk 10ft-Uneven Surface(QC): 4 Walk 50ft with 2 Turns (QC): 4 Gait Level of Assist: 5 Gait Assistive Device: FWW Wheelchair (FIM): 6 Distance: 150' Wheelchair Level of Assist: 6 Wheel 50 feet with 2 turns (QC: 6 Stairs (FIM): 1 # of Steps: 1 1 Step (curb) (QC): 4 Stairs Level Of Assist: 4 PT Plan Problem List Problem List: Activity Tolerance, Functional Strength, Bed Mobility Treatment/Plan Treatment Plan: Continue Plan of Care Treatment Plan: Bed Mobility, Concurrent Therapy, Education, Functional Activity Brice, Functional Strength, Group Therapy, Gait, Safety, Therapeutic Exercise, Transfers Treatment Duration: Oct 17, 2018 Frequency: At least 5 of 7 days/Wk (IRF) Estimated Hrs Per Day: 1.5 hours per day Patient and/or Family Agrees t: Yes Safety Risks/Education Patient Education: Transfer Techniques, Correct Positioning, Safety Issues Teaching Recipient: Patient Teaching Methods: Discussion Response to Teaching: Verbalize Understanding Time/GCodes Time In: 925 Time Out: 1010 Total Billed Treatment Time: 45 Total Billed Treatment 1, WCH (15m) & EX x2 (30m) G Codes Necessary: STEFFEN Medrano PROGRAM CLERK Sep 27, 2018 10:39
--- NOTE | 2018-09-27 10:53 | Occupational Ther Daily Note ---
OT Current Status-Daily Note Subjective Pt in bed, agrees to treatment. Pt reports 7/10 pain in left LE, states he recently received pain medication. Mental Status/Objective Therapy Code Descriptions/Definitions Functional [place] Measure: 0=Not Assessed/NA 4=Minimal Assistance 1=Total Assistance 5=Supervision or Setup 2=Maximal Assistance 6=Modified [place] 3=Moderate Assistance 7=Complete [place] ADL-Treatment Pt supine to sit with SBA and increased time. Pt requests to use restroom. Sit to stand with supervision. Gait to restroom with FWW, slow pace. Pt stood at toilet, but was unable to void. Required seated rest break secondary to fatigue. Transfer to w/c with SBA. Therapy Code Descriptions/Definitions Functional [place] Measure: 0=Not Assessed/NA 4=Minimal Assistance 1=Total Assistance 5=Supervision or Setup 2=Maximal Assistance 6=Modified [place] 3=Moderate Assistance 7=Complete [place] Therapy Quality Codes: 6 Independent with activity with or without an assistive device 5 Patient requires set up or clean up by helper. Patient completes activity by themselves 4 Supervision or touching assist (CGA). [place] provide cues , steadying assist 3 The helper provides less than half the effort to complete the activity 2 The helper provides more than half the effort to complete the activity 1 Dependent. The helper does all the effort to complete an activity 7 Patient refused to complete or attempt activity 9 The patient did not perform the activity before the current illness or injury 88 Not attempted due to Medical conditions or safety concerns Other Treatment W/c mobility to therapy gym without assist. Pt completed arm bike activity x15 minutes to increase overall strength and activity tolerance needed for ADLs and transfers. Pt performed activity with moderate resistance and steady pace. No rest breaks needed. Pt returned to room via w/c and transferred to chair with supervision. Pt sitting in chair with needs met and spouse present after session. OT Short Term Goals Short Term Goals Transfers (B,C,W/C) (FIM): 5 1=Demonstrate adherence to instructed precautions during ADL tasks. 2=Patient will verbalize/demonstrate understanding of assistive devices/ modifications for ADL. 3=Patient will improve strength/tolerance for activity to enable patient to perform ADL's. OT Towel Cabinet Repairer Goals Towel Cabinet Repairer Goals Time Frame: Oct 17, 2018 Eating (FIM): 7 Eating (QC): 6 Groomin Oral Hygiene (QC): 6 Bathing(FIM): 6 Shower/Bathe Self (QC): 6 Upper Body Dressing(FIM): 6 Upper Body Dressing (QC): 6 Lower Body Dressing(FIM): 6 Lower Body Dressing (QC): 6 On/Off Footwear (QC): 6 Toileting Hygiene (QC): 6 Toilet/Commode Transfer(FIM): 6 Toilet/Commode Transfer (QC): 6 Shower Transfer(FIM): 5 Additional Goals: 1-Demonstrate ADL Tasks, 2-Verbalize Understanding, 3- ImproveStrength/Brice 1=Demonstrate adherence to instructed precautions during ADL tasks. 2=Patient will verbalize/demonstrate understanding of assistive devices/ modifications for ADL. 3=Patient will improve strength/tolerance for activity to enable patient to perform ADL's. OT Education/Plan Discharge Recommendations Plan/Recommendations: Continue POC Treatment Plan/Plan of Care Patient would benefit from OT for education, treatment and training to promote independence in ADL's, mobility, safety and/or upper extremity function for ADL' s. Plan of Care: ADL Retraining, Functional Mobility, Group Exercise/Act as Ind, UE Funct Exercise/Act Treatment Duration: Oct 17, 2018 Frequency: Modified Program (IRF) Estimated Hrs Per Day: 1.5 hours per day Agreement: Yes Rehab Potential: Good Time/GCodes Start Time: 08:45 Stop Time: 09:15 Total Time Billed (hr/min): 30 Billed Treatment Time 1 visit, ADL(10minutes), Ex(20minutes) KITTY HOLDER OT Sep 27, 2018 10:53
--- NOTE | 2018-09-27 11:05 | PM&R Progress Note ---
Subjective HPI/CC On Admission Date Seen by Provider: Sep 27, 2018 Time Seen by Provider: 10:15 CC:Debility following left AKA HPI: This is a 48-year-old white male known to me from prior hospital admissions his primary care provider is Dr. Flowers who presents following a left [id number] amputation by Dr. Marcelo at [facility]. Patient had struggled with the left leg for many months with failed vascular procedures and wound care patient was unable to maintain the limb so that was amputated in an uneventful manner by Dr. Marcelo. He had no significant events while at [facility] had no infections and no significant clinical status change. Patient did have a myocardial infarction [address] Rhoades is his regular karate teacher and he has been consulted. I have reviewed all of his home medications prior to [facility] and current medications from [facility]. Patient is in so much pain that I am unable to obtain any more details so will initiate long-acting OxyContin and provide Percocet for pain control. He did have a bowel movement so will initiate stool softener for narcotic bowel prevention. Subjective/Events-last exam Patient wants to go home soon Pain is much more controlled today Will monitor for narcotic bowel Participating in therapy Dressing changes per RN Cough is improved Tolerating nebulizer Smoking cessation discussed Checked meds and labs Review of Systems Pulmonary: Cough Musculoskeletal: leg pain Objective Exam Vital Signs Vital Signs Date Time Temp Pulse Resp B/P (MAP) Pulse Ox O2 Delivery O2 Flow Rate FiO2 09/27/18 09:06 Room Air 09/27/18 08:33 91 09/27/18 06:00 98.5 91 18 118/80 (93) Capillary Refill : Less Than 3 Seconds General Appearance: WD/WN, Anxious, Chronically ill, Moderate Distress HEENT: PERRL/EOMI, TMs Normal, Normal ENT Inspection, Pharynx Normal, Moist Mucous Membranes Neck: Full Range of Motion, Normal Inspection, Non Tender, Supple Respiratory: Chest Non Tender, No Accessory Muscle Use, No Respiratory Distress , Crackles, Decreased Breath Sounds Cardiovascular: Regular Rate, Rhythm, No Edema, No Gallop, No JVD, No Murmur Gastrointestinal: Normal Bowel Sounds, No Organomegaly, No Pulsatile Mass, Non Tender, Soft Rectal: Normal Exam, Normal Rectal Tone Genital/Rectal: Normal Genital Exam, Normal Rectal Exam, Normal Rectal Tone, Normal Vaginal Exam Back: Normal Inspection, No CVA Tenderness, No Vertebral Tenderness Extremity: Normal Capillary Refill, Normal Inspection, Normal Range of Motion, Non Tender, No Calf Tenderness, No Pedal Edema, Other (left AKA dressing intact) Neurologic/Psychiatric: Alert, Oriented x3, No Motor/Sensory Deficits, Normal Mood/Affect Skin: Normal Color, Warm/Dry Lymphatic: No Adenopathy Results/Procedures Lab Patient resulted labs reviewed. Assessment/Plan Assessment and Plan Assess & Plan/Chief Complaint Assessment: Status post uneventful left knee amputation by Dr. Marcelo and [facility] Recent ND 8 weeks ago Smoker Coarse breath sounds today nebulizer treatments now improved PVD Plan: Initiate intensive therapy Work on transfers and assistive devices Monitor labs closely Nebulized treatments Pain control Prevent narcotic bowel (1) Above knee amputation of left lower extremity (2) CAD (coronary artery disease) (3) Myocardial infarct, old (4) Smoker (5) PVD (peripheral vascular disease) (6) COPD (chronic obstructive pulmonary disease) Clinical Quality Measures DVT/VTE Risk/Contraindication: Risk Factor Score Per Nursin RFS Level Per Nursing on Admit: 4+=Very High SONIYA JAMES DO Sep 27, 2018 11:05
[2018-09-27] MEDS: ALPRAZolam 0.25 MG (XANAX) TAB PO PRN (12:14)
--- NOTE | 2018-09-27 16:17 | NUR ---
Pt and were downstairs and saranya up for pain pill. Back to downstair a in w/c with pts at side. Pt is laughing and joking. Pain med given for c/o per pt. Able to propel w/c independently. Pt states is very bored today.
[2018-09-27 18:00] VITALS: BP 120/60
[2018-09-27] MEDS: ATORVASTATIN 20 MG (LIPITOR) TABLET PO SCH (20:06)
[2018-09-27] MEDS: CARISOPRODOL 350 MG (SOMA) TAB PO SCH (20:07)
--- NOTE | 2018-09-28 02:45 | NUR ---
REPORT GIVEN TO LILA YORK.
--- NOTE | 2018-09-28 02:58 | NUR ---
REPORT RECEIVED FROM LILA CASTANEDA. ASSUMED CARE AT THIS TIME.
[2018-09-28] MEDS: OMEGA 3 (FISH OIL) 1000 MG CAP PO SCH ×3 (06:45→17:21)
[2018-09-28] MEDS: GEMFIBROZIL 600 MG (LOPID) TAB PO SCH ×2 (06:45→15:34)
[2018-09-28 06:58] VITALS: BP 138/67
[2018-09-28] MEDS: RT-ALBUTEROL/IPRATROPIUM 3 ML (DUONEB) VIAL INH SCH ×3 (08:23→19:48)
[2018-09-28] MEDS: LOSARTAN 50 MG (COZAAR) TAB PO SCH (09:21)
[2018-09-28] MEDS: PANTOPRAZOLE 20 MG TABLET (PROTONIX) PO SCH (09:21)
[2018-09-28] MEDS: CLOPIDOGREL 75 MG (PLAVIX) TABLET PO SCH (09:22)
[2018-09-28] MEDS: ASPIRIN E.C. 81 MG (ECOTRIN) TAB PO SCH (09:22)
[2018-09-28] MEDS: ALLOPURINOL 300 MG (ZYLOPRIM) TAB PO SCH (09:22)
[2018-09-28] MEDS: GABAPENTIN 600 MG (NEURONTIN) TAB PO SCH ×4 (09:22→20:20)
[2018-09-28] MEDS: oxyCODONE/APAP 10/325MG (PERCOCET 10) TABLET PO PRN ×2 (09:22→15:35)
[2018-09-28] MEDS: oxyCODONE ER 10 MG (OxyCONTIN CR) TAB PO SCH ×2 (09:22→20:19)
[2018-09-28] MEDS: ISOSORBIDE MONONITRATE 30 MG (IMDUR) TAB PO SCH (09:22)
[2018-09-28] MEDS: meTOprolol TARTRATE 25 MG (LOPRESSOR) TABLET PO SCH ×2 (09:22→20:20)
[2018-09-28] MEDS: POLYETHYLENE GLYCOL 17 GM (MIRALAX) PACK PO SCH ×2 (09:23→21:35)
--- NOTE | 2018-09-28 12:48 | PM&R Progress Note ---
Subjective HPI/CC On Admission Date Seen by Provider: Sep 28, 2018 Time Seen by Provider: 12:20 CC:Debility following left AKA HPI: This is a 48-year-old white male known to me from prior hospital admissions his primary care provider is Dr. Flowers who presents following a left zgwgy-dyy-[id number] amputation by Dr. Marcelo at [facility]. Patient had struggled with the left leg for many months with failed vascular procedures and wound care patient was unable to maintain the limb so that was amputated in an uneventful manner by Dr. Marcelo. He had no significant events while at [facility] had no infections and no significant clinical status change. Patient did have a myocardial infarction [address] Rhoades is his regular timber appraiser and he has been consulted. I have reviewed all of his home medications prior to [facility] and current medications from [facility]. Patient is in so much pain that I am unable to obtain any more details so will initiate long-acting OxyContin and provide Percocet for pain control. He did have a bowel movement so will initiate stool softener for narcotic bowel prevention. Subjective/Events-last exam Patient wants to go home tomorrow Pain is well controlled Will monitor for narcotic bowel Participating in therapy Dressing changes per RN Cough is resolved Tolerating nebulizer and will continue that until DC Smoking cessation discussed Checked meds Review of Systems Musculoskeletal: leg pain Objective Exam Vital Signs Vital Signs Date Time Temp Pulse Resp B/P (MAP) Pulse Ox O2 Delivery O2 Flow Rate FiO2 09/28/18 09:00 Room Air 09/28/18 08:23 96 09/28/18 06:58 97.4 100 18 138/67 (90) Capillary Refill : Less Than 3 Seconds General Appearance: WD/WN, Anxious, Chronically ill, Moderate Distress HEENT: PERRL/EOMI, TMs Normal, Normal ENT Inspection, Pharynx Normal, Moist Mucous Membranes Neck: Full Range of Motion, Normal Inspection, Non Tender, Supple Respiratory: Chest Non Tender, Lungs Clear, Normal Breath Sounds, No Accessory Muscle Use, No Respiratory Distress Cardiovascular: Regular Rate, Rhythm, No Edema, No Gallop, No JVD, No Murmur Gastrointestinal: Normal Bowel Sounds, No Organomegaly, No Pulsatile Mass, Non Tender, Soft Rectal: Normal Exam, Normal Rectal Tone Genital/Rectal: Normal Genital Exam, Normal Rectal Exam, Normal Rectal Tone, Normal Vaginal Exam Back: Normal Inspection, No CVA Tenderness, No Vertebral Tenderness Extremity: Normal Capillary Refill, Normal Inspection, Normal Range of Motion, Non Tender, No Calf Tenderness, No Pedal Edema, Other (left AKA dressing intact) Neurologic/Psychiatric: Alert, Oriented x3, No Motor/Sensory Deficits, Normal Mood/Affect Skin: Normal Color, Warm/Dry Lymphatic: No Adenopathy Results/Procedures Lab Patient resulted labs reviewed. Assessment/Plan Assessment and Plan Assess & Plan/Chief Complaint Assessment: Status post uneventful left knee amputation by Dr. Marcelo and [facility] Recent [place] 8 weeks ago Smoker Coarse breath sounds today nebulizer treatments now improved PVD Plan: Initiate intensive therapy Work on transfers and assistive devices Monitor labs closely Nebulized treatments Pain control Prevent narcotic bowel (1) Above knee amputation of left lower extremity (2) CAD (coronary artery disease) (3) Myocardial infarct, old (4) Smoker (5) PVD (peripheral vascular disease) (6) COPD (chronic obstructive pulmonary disease) Clinical Quality Measures DVT/VTE Risk/Contraindication: Risk Factor Score Per Nursin RFS Level Per Nursing on Admit: 4+=Very High SONIYA JAMES DO Sep 28, 2018 12:48
--- NOTE | 2018-09-28 16:05 | Progress Note-Cardiology ---
Cardiology SOAP Progress Note Subjective: Notes marked stump pain, intermittent, bearable at the time of this exam No cp or palp or syncope Chronic exertional shortness of breath Objective: I&O/Vital Signs 09/28/18 09/28/18 09/28/18 09/28/18 06:58 08:23 09:00 14:47 Temp 97.4 Pulse 100 Resp 18 B/P (MAP) 138/67 (90) Pulse Ox 95 96 96 O2 Delivery Room Air Room Air Room Air Room Air 09/28/18 00:00 Intake Total 2400 ml Output Total 2000 ml Balance 400 ml Weight (Pounds): 197 Weight (Ounces): 0.0 Weight (Calculated Kilograms): 89.003485 Constitutional: AAO x 3, well-developed, well-nourished Respiratory: No accessory muscle use; lungs clear to percussion, lungs clear to auscultation Cardiovascular: regular rate-rhythm, S1 and S2, systolic murmur (faint ANIL at card base) Gastrointestional: No tender; soft; No guarding, No rebound; audible bowel sounds Extremities: other (L AKA); No clubbing, No cyanosis, No significant edema Neurologic/Psychiatric: oriented x 3, grossly intact (moves all limbs equally) Skin: No rash on exposed areas, No ulcerations on exposed areas A/P: Assessment: 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 He states he has cut back lately, but has not stopped Hyperlipidemia History of gastroesophageal reflux disease. History of elevated liver enzymes History of deep venous thrombosis Physician Assessment Physician Assessment * I reviewed his hosp records, interviewed him, and examined him. I answered his and his 's CV-related questions * He suffers from multiple comorbidities that are outlined above * We reviewed risk factor mod * We advised immediate and complete smoking cessation * Continue current regimen, including ASA and Plavix VIOLA MCGINNIS MD FACP FAC CCDS Sep 28, 2018 16:05
[2018-09-28 17:51] VITALS: BP 117/68
[2018-09-28] MEDS: ATORVASTATIN 20 MG (LIPITOR) TABLET PO SCH (20:20)
[2018-09-28] MEDS: CARISOPRODOL 350 MG (SOMA) TAB PO SCH (20:20)
--- NOTE | 2018-09-28 22:40 | NUR ---
REPORT GIVEN TO NGUYỄN, RN
[2018-09-29] MEDS: oxyCODONE/APAP 10/325MG (PERCOCET 10) TABLET PO PRN ×4 (00:35→19:55)
[2018-09-29 06:00] VITALS: BP 115/77
[2018-09-29] MEDS: GEMFIBROZIL 600 MG (LOPID) TAB PO SCH ×2 (06:03→16:22)
[2018-09-29] MEDS: OMEGA 3 (FISH OIL) 1000 MG CAP PO SCH ×3 (06:03→16:22)
[2018-09-29] MEDS: CLOPIDOGREL 75 MG (PLAVIX) TABLET PO SCH (08:05)
[2018-09-29] MEDS: meTOprolol TARTRATE 25 MG (LOPRESSOR) TABLET PO SCH ×2 (08:05→21:32)
[2018-09-29] MEDS: LOSARTAN 50 MG (COZAAR) TAB PO SCH (08:05)
[2018-09-29] MEDS: ALLOPURINOL 300 MG (ZYLOPRIM) TAB PO SCH (08:05)
[2018-09-29] MEDS: ISOSORBIDE MONONITRATE 30 MG (IMDUR) TAB PO SCH (08:05)
[2018-09-29] MEDS: ASPIRIN E.C. 81 MG (ECOTRIN) TAB PO SCH (08:06)
[2018-09-29] MEDS: GABAPENTIN 600 MG (NEURONTIN) TAB PO SCH ×4 (08:06→21:26)
[2018-09-29] MEDS: oxyCODONE ER 10 MG (OxyCONTIN CR) TAB PO SCH ×2 (08:06→21:27)
[2018-09-29] MEDS: POLYETHYLENE GLYCOL 17 GM (MIRALAX) PACK PO SCH ×2 (08:07→21:33)
--- NOTE | 2018-09-29 08:17 | PM&R Progress Note ---
Subjective HPI/CC On Admission Date Seen by Provider: Sep 29, 2018 Time Seen by Provider: 08:00 CC:Debility following left AKA HPI: This is a 48-year-old white male known to me from prior hospital admissions his primary care provider is Dr. Flowers who presents following a left jqefv-byn-hyja amputation by Dr. Marcelo at [facility]. Patient had struggled with the left leg for many months with failed vascular procedures and wound care patient was unable to maintain the limb so that was amputated in an uneventful manner by Dr. Marcelo. He had no significant events while at [facility] had no infections and no significant clinical status change. Patient did have a myocardial infarction [address] Rhoades is his regular dietetic technician registered and he has been consulted. I have reviewed all of his home medications prior to [facility] and current medications from [facility]. Patient is in so much pain that I am unable to obtain any more details so will initiate long-acting OxyContin and provide Percocet for pain control. He did have a bowel movement so will initiate stool softener for narcotic bowel prevention. Subjective/Events-last exam Patient wants to go home soon Pain is well controlled on long-acting and breakthrough meds Will monitor for narcotic bowel Participating in therapy Dressing changes per RN Cough is resolved and smoking cessation was counseled in depth today since he was planning on cutting down in quitting anyway Tolerating nebulizer and will continue that until DC Reviewing records regarding the actual etiology of the condition required the left [id number] amputation Checked meds Conferred with Dr. Rhoades Review of Systems Musculoskeletal: leg pain Objective Exam Vital Signs Vital Signs Date Time Temp Pulse Resp B/P (MAP) Pulse Ox O2 Delivery O2 Flow Rate FiO2 09/29/18 06:00 97.2 89 18 115/77 (90) 90 Room Air Capillary Refill : Less Than 3 Seconds General Appearance: WD/WN, Anxious, Chronically ill, Moderate Distress HEENT: PERRL/EOMI, TMs Normal, Normal ENT Inspection, Pharynx Normal, Moist Mucous Membranes Neck: Full Range of Motion, Normal Inspection, Non Tender, Supple Respiratory: Chest Non Tender, Lungs Clear, Normal Breath Sounds, No Accessory Muscle Use, No Respiratory Distress Cardiovascular: Regular Rate, Rhythm, No Edema, No Gallop, No JVD, No Murmur Gastrointestinal: Normal Bowel Sounds, No Organomegaly, No Pulsatile Mass, Non Tender, Soft Rectal: Normal Exam, Normal Rectal Tone Genital/Rectal: Normal Genital Exam, Normal Rectal Exam, Normal Rectal Tone, Normal Vaginal Exam Back: Normal Inspection, No CVA Tenderness, No Vertebral Tenderness Extremity: Normal Capillary Refill, Normal Inspection, Normal Range of Motion, Non Tender, No Calf Tenderness, No Pedal Edema, Other (left AKA dressing intact) Neurologic/Psychiatric: Alert, Oriented x3, No Motor/Sensory Deficits, Normal Mood/Affect Skin: Normal Color, Warm/Dry Lymphatic: No Adenopathy Results/Procedures Lab Patient resulted labs reviewed. Assessment/Plan Assessment and Plan Assess & Plan/Chief Complaint Assessment: Status post uneventful left knee amputation by Dr. Marcelo and [facility] Recent [place] [address] Rhoades Smoker counseled cessation Coarse breath sounds nebulizer treatments have resolved this issue PVD Plan: Maintain intensive therapy Work on transfers and assistive devices Monitor labs closely Nebulized treatments Pain control Prevent narcotic bowel (1) Above knee amputation of left lower extremity (2) CAD (coronary artery disease) (3) Myocardial infarct, old (4) Smoker (5) PVD (peripheral vascular disease) (6) COPD (chronic obstructive pulmonary disease) Clinical Quality Measures DVT/VTE Risk/Contraindication: Risk Factor Score Per Nursin RFS Level Per Nursing on Admit: 4+=Very High SONIYA JAMES DO Sep 29, 2018 08:17
--- NOTE | 2018-09-29 08:28 | Cardiology Progress Note ---
Subjective Date Seen by Provider: Sep 29, 2018 Time Seen by Provider: 08:25 Subjective/Events-last exam Patient with PT, complaining of some phantom pain. Denies any chest pain or dyspnea. Review of Systems General: No Night Sweats, No Fatigue, No Malaise HEENT: No Visual Changes, No Dysphasia, No Sore Throat Pulmonary: No Dyspnea, No Cough Cardiovascular: No: Chest Pain, Palpitations, Orthopnea Gastrointestinal: No: Nausea, Vomiting Genitourinary: No Dysuria, No Frequency Musculoskeletal: leg pain (Left phantom pain) Objective-Cardiology Exam Last Set of Vital Signs Vital Signs 09/29/18 06:00 Temp 97.2 Pulse 89 Resp 18 B/P (MAP) 115/77 (90) Pulse Ox 90 O2 Delivery Room Air Capillary Refill : Less Than 3 Seconds I&O Intake and Output 09/29/18 00:00 Intake Total 3050 ml Output Total 2400 ml Balance 650 ml Intake Oral 3050 ml Output Urine Total 2400 ml General: Alert, Oriented X3, Cooperative, No Acute Distress HEENT: Atraumatic, PERRLA Neck: Supple, No JVD, No Thyromegaly, +2 Carotid Pulse No Bruit, No LAD Lungs: Other Abdomen: Normal Bowel Sounds, Soft, No Tenderness, No Hepatosplenomegaly, No Masses Extremities: No Clubbing, No Cyanosis, No Edema, Normal Pulses, No Tenderness/ Swelling Skin: No Rashes, No Breakdown, No Significant Lesion Neuro: Normal Speech, Strength at 5/5 X4 Ext, Normal Tone, Sensation Intact, Cranial Nerves 3-12 NL, Reflexes 2+, Other (Left AKA) Psych/Mental Status: Mental Status NL, Mood NL A/P-Cardiology Admission Diagnosis Left AKA Peripheral arterial disease Coronary artery disease Hypertension Hyperlipidemia Assessment/Plan Peripheral arterial disease, Buergers disease, status post left AKA, still having pain. Had extensive disease, seen and followed by Dr. Marcelo Coronary artery disease, history of Promus drug-eluting stent placement using 2.512 mm in the circumflex artery in July [address] Alcocer after having myocardial infarction. Most recent cardiac catheterization done July 2016 revealed patent stent to circumflex artery with otherwise nonobstructive disease , had non-ST elevation myocardial infarction on July 12, 2017 had total occlusion of the obtuse marginal branch successful the plan of resolute integrity 2.526 mm with good results. Total occlusion of the right coronary artery with failed attempt for intervention, referred to Dr. Warner, had intervention on the right coronary artery with 3 drug-eluting stent overlapping in the right coronary artery. Patient had non-ST elevation [place] on July 12, 2018 and underwent cardiac catheterization with Dr. Duran revealing stent thrombosis and occlusion of the distal/mid RCA stents to date successfully with PTCA. Integrilin infusion 12 hour. He is maintained on Plavix and aspirin at this time. History of congestive heart failure, improved, history of Severe left ventricular systolic dysfunction, improved with intervention and maximizing medical therapy, ejection fraction 45-50 percent. Continue to monitor History of deep venous thrombosis/pulmonary embolism, has been maintained on Coumadin in the past, Currently on hold while on aspirin and Plavix Tobaccoism, stopped smoking in June 2017. Continue to monitor Hyperlipidemia, continue to monitor lipids History of gastroesophageal reflux disease. History of elevated liver enzymes, monitor liver enzymes History of deep venous thrombosis. Clinical Quality Measures DVT/VTE Risk/Contraindication: Risk Factor Score Per Nursin RFS Level Per Nursing on Admit: 4+=Very High LUBA FLAHERTY Sep 29, 2018 08:28
[2018-09-29] MEDS: PANTOPRAZOLE 20 MG TABLET (PROTONIX) PO SCH (08:47)
--- NOTE | 2018-09-29 08:54 | Cardiology Progress Note ---
Subjective Date Seen by Provider: Sep 29, 2018 Time Seen by Provider: 08:52 Subjective/Events-last exam Patient is in bed, feeling better, still having pain in his leg Review of Systems General: No Chills, No Night Sweats, No Fatigue, No Malaise, No Appetite, No Other HEENT: No Head Aches, No Visual Changes, No Eye Pain, No Ear Pain, No Dysphasia , No Sinus Congestion, No Post Nasal Drip, No Sore Throat, No Other Pulmonary: No Dyspnea, No Cough, No Pleuritic Chest Pain, No Other Cardiovascular: No: Chest Pain, Palpitations, Orthopnea, Paroxysmal Noc. Dyspnea, Edema, Lt Headedness, Other Objective-Cardiology Exam Last Set of Vital Signs Vital Signs 09/29/18 06:00 Temp 97.2 Pulse 89 Resp 18 B/P (MAP) 115/77 (90) Pulse Ox 90 O2 Delivery Room Air Capillary Refill : Less Than 3 Seconds I&O Intake and Output 09/29/18 00:00 Intake Total 3050 ml Output Total 2400 ml Balance 650 ml Intake Oral 3050 ml Output Urine Total 2400 ml General: Alert, Oriented X3, Cooperative, No Acute Distress HEENT: Atraumatic, PERRLA Neck: Supple, No JVD, No Thyromegaly, +2 Carotid Pulse No Bruit, No LAD Lungs: Other Heart: Normal S1, Normal S2 Abdomen: Normal Bowel Sounds, Soft, No Tenderness, No Hepatosplenomegaly, No Masses Extremities: No Clubbing, No Cyanosis, No Edema, Normal Pulses, No Tenderness/ Swelling Skin: No Rashes, No Breakdown, No Significant Lesion Neuro: Normal Speech, Strength at 5/5 X4 Ext, Normal Tone, Sensation Intact, Cranial Nerves 3-12 NL, Reflexes 2+, Other (Left AKA) Psych/Mental Status: Mental Status NL, Mood NL A/P-Cardiology Admission Diagnosis Left AKA Peripheral arterial disease Coronary artery disease Hypertension Hyperlipidemia Assessment/Plan Peripheral arterial disease, Buerger's disease, status post left AKA, still having pain. Had extensive disease, seen and followed by Dr. Marcelo Coronary artery disease, history of Promus drug-eluting stent placement using 2.512 mm in the circumflex artery in July [address] Alcocer after having myocardial infarction. Most recent cardiac catheterization done July 2016 revealed patent stent to circumflex artery with otherwise nonobstructive disease , had non-ST elevation myocardial infarction on July 12, 2017 had total occlusion of the obtuse marginal branch successful the plan of resolute integrity 2.526 mm with good results. Total occlusion of the right coronary artery with failed attempt for intervention, referred to Dr. Warner, had intervention on the right coronary artery with 3 drug-eluting stent overlapping in the right coronary artery. Patient had non-ST elevation [place] on July 12, 2018 and underwent cardiac catheterization with Dr. Duran revealing stent thrombosis and occlusion of the distal/mid RCA stents to date successfully with PTCA. Integrilin infusion 12 hour. He is maintained on Plavix and aspirin at this time. History of congestive heart failure, improved, history of Severe left ventricular systolic dysfunction, improved with intervention and maximizing medical therapy, ejection fraction 45-50 percent. Continue to monitor History of deep venous thrombosis/pulmonary embolism, has been maintained on Coumadin in the past, Currently on hold while on aspirin and Plavix Tobaccoism, stopped smoking in June 2017. Continue to monitor Hyperlipidemia, continue to monitor lipids History of gastroesophageal reflux disease. History of elevated liver enzymes, monitor liver enzymes History of deep venous thrombosis. Clinical Quality Measures DVT/VTE Risk/Contraindication: Risk Factor Score Per Nursin RFS Level Per Nursing on Admit: 4+=Very High JEFFERY DE SOUZA MD Sep 29, 2018 08:54
--- NOTE | 2018-09-29 08:57 | Physical Therapy Daily Note ---
PT Daily Note-Current Subjective Patient in recliner pre tx, agrees to PT, has pain of 7-8/10, nurse gives pain meds at the beginning of treatment. Appearance Patient in recliner post tx with nurse call, phone, tray, all needs met. Mental Status Patient Orientation: Person, Place, Situation Transfers Therapy Code Descriptions/Definitions Functional [place] Measure: 0=Not Assessed/NA 4=Minimal Assistance 1=Total Assistance 5=Supervision or Setup 2=Maximal Assistance 6=Modified [place] 3=Moderate Assistance 7=Complete [place] Therapy Quality Codes: 6 Independent with activity with or without an assistive device 5 Patient requires set up or clean up by helper. Patient completes activity by themselves 4 Supervision or touching assist (CGA). [place] provide cues , steadying assist 3 The helper provides less than half the effort to complete the activity 2 The helper provides more than half the effort to complete the activity 1 Dependent. The helper does all the effort to complete an activity 7 Patient refused to complete or attempt activity 9 The patient did not perform the activity before the current illness or injury 88 Not attempted due to Medical conditions or safety concerns Transfers (B, C, W/C) (FIM): 5 Scootin Rollin Supine to/from Sit: 5 Sit to/from Stand: 5 Bed to/from Chair: 5 Appropriate placement of hands during transfers. Weight Bearing Right Lower Extremity: Right Full Weight Bearing Gait Training Gait (FIM): 2 Distance: 50'x4 Gait Level of Assist: 5 Gait Persons Needed: 1 Gait Assistive Device: FWW Steady ambulation, no LOB, good foot clearance on the right side. Wheelchair Training Does the Pt Use a Wheelchair?: Yes Wheelchair (FIM): 6 Distance: 150' Type of Wheelchair: Manual Exercises Supine Ex: Bridging (RLE), Quad Set (LLE), Straight leg raise (LLE), Hip abd/ add (LLE) Supine Reps: 15 LAQ right side with 3# ankle weight for 5 min Treatments bed mobility and transfers, ambulation, functional strengthening Assessment Current Status: Fair Progress improved ambulation and transfers, patient is not able to lay on his stomach for hip extension stretch PT Short Term Goals Short Term Goals Time Frame: Oct 03, 2018 Transfers (B,C,W/C) (FIM): 5 Gait (FIM): 1 Gait Distance Comment: 20' Gait Level of Assist: 4 Gait Assistive Device: FWW Wheelchair Distance: 150' PT Long-Term Goals Boiler Plant Operator Goals PT Long-Term Goals Time Frame: Oct 17, 2018 Transfers (B,C,W/C) (FIM): 6 Sit to Lying (QC): 6 Lying-Sitting on Side/Bed(QC): 6 Sit to Stand (QC): 6 Rollin Roll Left to Right (QC): 6 Chair/Jxx-wj-Tskrd Xfer(QC): 6 Car Transfer (QC): 4 Gait (FIM): 2 Distance: 50' Walk 10 feet (QC): 4 Walk 10ft-Uneven Surface(QC): 4 Walk 50ft with 2 Turns (QC): 4 Gait Level of Assist: 5 Gait Assistive Device: FWW Wheelchair (FIM): 6 Distance: 150' Wheelchair Level of Assist: 6 Wheel 50 feet with 2 turns (QC: 6 Stairs (FIM): 1 # of Steps: 1 1 Step (curb) (QC): 4 Stairs Level Of Assist: 4 PT Plan Problem List Problem List: Activity Tolerance, Functional Strength, Safety, Balance, Gait, Transfer, Bed Mobility, ROM Treatment/Plan Treatment Plan: Continue Plan of Care Treatment Plan: Bed Mobility, Concurrent Therapy, Education, Functional Activity Brice, Functional Strength, Group Therapy, Gait, Safety, Therapeutic Exercise, Transfers Treatment Duration: Oct 17, 2018 Frequency: At least 5 of 7 days/Wk (IRF) Estimated Hrs Per Day: 1.5 hours per day Patient and/or Family Agrees t: Yes Safety Risks/Education Patient Education: Gait Training, Transfer Techniques, Correct Positioning, W/ C Management, Safety Issues Teaching Recipient: Patient Teaching Methods: Demonstration, Discussion Response to Teaching: Reinforcement Needed Time/GCodes Time In: 0800 Time Out: 0900 Total Billed Treatment Time: 60 Total Billed Treatment 1 visit EX 20' WCH 10' GT 30' EILEEN MAY PT Sep 29, 2018 08:57
[2018-09-29] MEDS: RT-ALBUTEROL/IPRATROPIUM 3 ML (DUONEB) VIAL INH SCH ×3 (09:00→22:28)
--- NOTE | 2018-09-29 10:15 | Occupational Ther Daily Note ---
OT Current Status-Daily Note Subjective Pt alert, sitting in recliner. Pt agrees to therapy. Pt is very vocal about going home. Mental Status/Objective Patient Orientation: Person, Place, Time, Situation Therapy Code Descriptions/Definitions Functional [place] Measure: 0=Not Assessed/NA 4=Minimal Assistance 1=Total Assistance 5=Supervision or Setup 2=Maximal Assistance 6=Modified [place] 3=Moderate Assistance 7=Complete [place] ADL-Treatment Pt is very modest and adamantly requested help with bathing/dressing. Pt maneuvered w/c to large shower room to use tub shower and tub transfer bench. Pt able to complete tub bench transfer with SBA for safety. Pt's assists with bathing and dressing. Pt tends to tell to complete most of bathing/ dressing for him though pt has demonstrated ability to complete by self or use AE. When AE for lower body dressing is recommended pt states that he has slip on shoes and probably won't even wear socks. Declined any AE for dressing. Therapy Code Descriptions/Definitions Functional [place] Measure: 0=Not Assessed/NA 4=Minimal Assistance 1=Total Assistance 5=Supervision or Setup 2=Maximal Assistance 6=Modified [place] 3=Moderate Assistance 7=Complete [place] Therapy Quality Codes: 6 Independent with activity with or without an assistive device 5 Patient requires set up or clean up by helper. Patient completes activity by themselves 4 Supervision or touching assist (CGA). [place] provide cues , steadying assist 3 The helper provides less than half the effort to complete the activity 2 The helper provides more than half the effort to complete the activity 1 Dependent. The helper does all the effort to complete an activity 7 Patient refused to complete or attempt activity 9 The patient did not perform the activity before the current illness or injury 88 Not attempted due to Medical conditions or safety concerns Grooming (FIM): 6 (Sitting in w/c at sink, pt completes by self.) Oral Hygiene (QC): 6 Bathing (FIM): 4 ( assisted with bathing. Pt states that he is to fat to bend over to reach feet and will do it. Pt uses tub transfer bench, grabbar, hand held shower.) Bathing Location: L Arm, R Arm, L Upper Leg, R Upper Leg, Chest, Abdomen, Buttocks, Perineal Area Shower/Bathe Self (QC): 3 Upper Body (FIM): 5 ( retrieves clothing. Pt able to don/doff by self.) Upper Body Dressing (QC): 5 Lower Body Dressing (FIM): 3 ( assist completing most of lower body dressing. Pt declines AE for lower body dressing.) Lower Body Dressing (QC): 2 On/Off Footwear (QC): 2 Toileting (FIM): 4 (Assist by to manipulate clothing. Completes hygiene by self.) Toileting Hygiene (QC): 3 Toilet/Commode Transfer (FIM): 6 (Completes with BSC, w/c and grabbars.) Toilet Transfer (QC): 6 Shower Transfer(FIM): 5 (Using tub bench and w/c completes with supervision.) Other Treatment Pt completed w/c mobility through hospital to increase UE strength and activity tolerance. Pt able to propel w/c over multiple surfaces and up w/c ramp without difficulty. After therapy, pt sitting in w/c with call light/phone in reach. All needs met in room. OT Short Term Goals Short Term Goals Transfers (B,C,W/C) (FIM): 5 1=Demonstrate adherence to instructed precautions during ADL tasks. 2=Patient will verbalize/demonstrate understanding of assistive devices/ modifications for ADL. 3=Patient will improve strength/tolerance for activity to enable patient to perform ADL's. OT Long-Term Goals Long-Term Goals Time Frame: Oct 17, 2018 Eating (FIM): 7 Eating (QC): 6 Groomin Oral Hygiene (QC): 6 Bathing(FIM): 6 Shower/Bathe Self (QC): 6 Upper Body Dressing(FIM): 6 Upper Body Dressing (QC): 6 Lower Body Dressing(FIM): 6 Lower Body Dressing (QC): 6 On/Off Footwear (QC): 6 Toileting Hygiene (QC): 6 Toilet/Commode Transfer(FIM): 6 Toilet/Commode Transfer (QC): 6 Shower Transfer(FIM): 5 Additional Goals: 1-Demonstrate ADL Tasks, 2-Verbalize Understanding, 3- ImproveStrength/Brice 1=Demonstrate adherence to instructed precautions during ADL tasks. 2=Patient will verbalize/demonstrate understanding of assistive devices/ modifications for ADL. 3=Patient will improve strength/tolerance for activity to enable patient to perform ADL's. OT Education/Plan Discharge Recommendations Plan/Recommendations: Continue POC Treatment Plan/Plan of Care Patient would benefit from OT for education, treatment and training to promote independence in ADL's, mobility, safety and/or upper extremity function for ADL' s. Plan of Care: ADL Retraining, Functional Mobility, Group Exercise/Act as Ind, UE Funct Exercise/Act Treatment Duration: Oct 17, 2018 Frequency: Modified Program (IRF) Estimated Hrs Per Day: 1.5 hours per day Agreement: Yes Rehab Potential: Good Time/GCodes Start Time: 09:00 Stop Time: 10:00 Total Time Billed (hr/min): 60 Billed Treatment Time 1 visit-ADL 3 (40 min) FA 1 (20 min) LEX BRUNSON Sep 29, 2018 10:15
--- NOTE | 2018-09-29 13:10 | Occupational Ther Daily Note ---
OT Current Status-Daily Note Subjective Pt alert, ambulating around room using FWW with present in room. Mental Status/Objective Patient Orientation: Person, Place, Time, Situation Therapy Code Descriptions/Definitions Functional [place] Measure: 0=Not Assessed/NA 4=Minimal Assistance 1=Total Assistance 5=Supervision or Setup 2=Maximal Assistance 6=Modified [place] 3=Moderate Assistance 7=Complete [place] ADL-Treatment Therapy Code Descriptions/Definitions Functional [place] Measure: 0=Not Assessed/NA 4=Minimal Assistance 1=Total Assistance 5=Supervision or Setup 2=Maximal Assistance 6=Modified [place] 3=Moderate Assistance 7=Complete [place] Therapy Quality Codes: 6 Independent with activity with or without an assistive device 5 Patient requires set up or clean up by helper. Patient completes activity by themselves 4 Supervision or touching assist (CGA). [place] provide cues , steadying assist 3 The helper provides less than half the effort to complete the activity 2 The helper provides more than half the effort to complete the activity 1 Dependent. The helper does all the effort to complete an activity 7 Patient refused to complete or attempt activity 9 The patient did not perform the activity before the current illness or injury 88 Not attempted due to Medical conditions or safety concerns Toileting (FIM): 5 (Supervision by when completing toileting using FWW.) Toileting Hygiene (QC): 4 Toilet/Commode Transfer (FIM): 6 (Using FWW, BSC and grabbar pt able to complete by self.) Toilet Transfer (QC): 6 Other Treatment Pt maneuvered w/c to therapy gym. Completed arm bike 15 min at 20 winters resistance to increase strength and activity tolerance for daily functional tasks. After therapy, pt in w/c at room with visitors present. Call light/ phone in reach. Family present in room. OT Short Term Goals Short Term Goals Transfers (B,C,W/C) (FIM): 5 1=Demonstrate adherence to instructed precautions during ADL tasks. 2=Patient will verbalize/demonstrate understanding of assistive devices/ modifications for ADL. 3=Patient will improve strength/tolerance for activity to enable patient to perform ADL's. OT [facility] Goals [facility] Goals Time Frame: Oct 17, 2018 Eating (FIM): 7 Eating (QC): 6 Groomin Oral Hygiene (QC): 6 Bathing(FIM): 6 Shower/Bathe Self (QC): 6 Upper Body Dressing(FIM): 6 Upper Body Dressing (QC): 6 Lower Body Dressing(FIM): 6 Lower Body Dressing (QC): 6 On/Off Footwear (QC): 6 Toileting Hygiene (QC): 6 Toilet/Commode Transfer(FIM): 6 Toilet/Commode Transfer (QC): 6 Shower Transfer(FIM): 5 Additional Goals: 1-Demonstrate ADL Tasks, 2-Verbalize Understanding, 3- ImproveStrength/Brice 1=Demonstrate adherence to instructed precautions during ADL tasks. 2=Patient will verbalize/demonstrate understanding of assistive devices/ modifications for ADL. 3=Patient will improve strength/tolerance for activity to enable patient to perform ADL's. OT Education/Plan Discharge Recommendations Plan/Recommendations: Continue POC Treatment Plan/Plan of Care Patient would benefit from OT for education, treatment and training to promote independence in ADL's, mobility, safety and/or upper extremity function for ADL' s. Plan of Care: ADL Retraining, Functional Mobility, Group Exercise/Act as Ind, UE Funct Exercise/Act Treatment Duration: Oct 17, 2018 Frequency: Modified Program (IRF) Estimated Hrs Per Day: 1.5 hours per day Agreement: Yes Rehab Potential: Good Time/GCodes Start Time: 12:30 Stop Time: 13:00 Total Time Billed (hr/min): 30 Billed Treatment Time 1 visit-ADL 1 (15 min) EX 1 (15 min) LEX BRUNSON Sep 29, 2018 13:10
--- NOTE | 2018-09-29 14:22 | Physical Therapy Daily Note ---
PT Daily Note-Current Subjective Pt sitting in W/C in room upon arrival. Pt agrees to PT for FIM scoring for possible upcoming D/C. Pain Numeric Pain Scale: 5-Moderate Pain Location: Incisional, Left Location Body Site: Knee Pain Description: Ache Mental Status Patient Orientation: Person, Place, Time, Situation Transfers Therapy Code Descriptions/Definitions Functional [place] Measure: 0=Not Assessed/NA 4=Minimal Assistance 1=Total Assistance 5=Supervision or Setup 2=Maximal Assistance 6=Modified [place] 3=Moderate Assistance 7=Complete [place] Therapy Quality Codes: 6 Independent with activity with or without an assistive device 5 Patient requires set up or clean up by helper. Patient completes activity by themselves 4 Supervision or touching assist (CGA). [place] provide cues , steadying assist 3 The helper provides less than half the effort to complete the activity 2 The helper provides more than half the effort to complete the activity 1 Dependent. The helper does all the effort to complete an activity 7 Patient refused to complete or attempt activity 9 The patient did not perform the activity before the current illness or injury 88 Not attempted due to Medical conditions or safety concerns Transfers (B, C, W/C) (FIM): 6 Scootin Rollin Roll Left to Right (QC): 6 Supine to/from Sit: 6 Sit to/from Stand: 6 Sit to Lying (QC): 6 Sit to Stand (QC): 6 Chair/Mbi-ug-Zsoyo Xfer(QC): 6 Bed to/from Chair: 6 Car Transfer (QC): 6 Weight Bearing Right Lower Extremity: Right Full Weight Bearing Gait Training Does the Patient Walk?: Yes Gait (FIM): 5 Distance (FIM): 3=150 ft Distance: 150' Walk 10 feet (QC): 5 Walk 50 ft with 2 Turns(QC): 5 Walk 150 ft (QC): 5 Walking 10ft/uneven surface-QC: 5 Gait Level of Assist: 5 Gait Persons Needed: 1 Gait Assistive Device: FWW Pt has hop to gait pattern. Wheelchair Training Does the Pt Use a Wheelchair?: Yes Wheelchair (FIM): 6 Wheelchair Distance: 3=150 ft Distance: 150' Wheelchair Level of Assist: 6 Wheel 50 ft with 2 turns (QC): 6 Wheel 150 ft (QC): 6 Type of Wheelchair: Manual Stair Training Stair Training: Handrails/: 2 handrails Stairs (FIM): 3 #of Steps: 4 1 Step (curb) (QC): 5 4 Steps (QC): 5 12 Steps (QC): 88 Stairs: Pattern: Hops Level of Assist: 5 Pt fatigues after one set of 4 steps but will have ramp to get into house. Balance Picking up an Object (QC): 88 Special Test Comments Pt did not test this during tx due to balance deficit. Pt will have assistant brand manager and support of family to help at home. Treatments Pt completes transfers including bed mobility and car transfers at [facility]. Pt ambulates in hallway and across varying surface using FWW at [facility]. Pt returns to room to rest at end of tx with all needs met. Assessment Current Status: Good Progress Pt has improved with strength and activity tolerance. Pt has good family support and wants to D/C soon. PT Short Term Goals Short Term Goals Time Frame: Oct 03, 2018 Transfers (B,C,W/C) (FIM): 5 Gait (FIM): 1 Gait Distance Comment: 20' Gait Level of Assist: 4 Gait Assistive Device: FWW Wheelchair Distance: 150' PT Snf Goals Pediatric Urologist Goals PT Snf Goals Time Frame: Oct 17, 2018 Transfers (B,C,W/C) (FIM): 6 Sit to Lying (QC): 6 Lying-Sitting on Side/Bed(QC): 6 Sit to Stand (QC): 6 Rollin Roll Left to Right (QC): 6 Chair/Ezz-jv-Mbojd Xfer(QC): 6 Car Transfer (QC): 4 Gait (FIM): 2 Distance: 50' Walk 10 feet (QC): 4 Walk 10ft-Uneven Surface(QC): 4 Walk 50ft with 2 Turns (QC): 4 Gait Level of Assist: 5 Gait Assistive Device: FWW Wheelchair (FIM): 6 Distance: 150' Wheelchair Level of Assist: 6 Wheel 50 feet with 2 turns (QC: 6 Stairs (FIM): 1 # of Steps: 1 1 Step (curb) (QC): 4 Stairs Level Of Assist: 4 PT Plan Problem List Problem List: Activity Tolerance, Balance, Gait Treatment/Plan Treatment Plan: Continue Plan of Care Treatment Plan: Bed Mobility, Concurrent Therapy, Education, Functional Activity Brice, Functional Strength, Group Therapy, Gait, Safety, Therapeutic Exercise, Transfers Treatment Duration: Oct 17, 2018 Frequency: At least 5 of 7 days/Wk (IRF) Estimated Hrs Per Day: 1.5 hours per day Patient and/or Family Agrees t: Yes Safety Risks/Education Patient Education: Gait Training, Transfer Techniques, Correct Positioning, Safety Issues Teaching Recipient: Patient, Significant Other Teaching Methods: Discussion Response to Teaching: Verbalize Understanding Time/GCodes Time In: 1300 Time Out: 1330 Total Billed Treatment Time: 30 Total Billed Treatment 1, GT (15m) & FA (15m) G Codes Necessary: STEFFEN Medrano BUILDING CUSTODIAN Sep 29, 2018 14:21
--- NOTE | 2018-09-29 16:12 | NUR ---
Pastoral care visit. I shared with pt the availability and support of Chaplains.
--- NOTE | 2018-09-29 16:15 | NUR ---
Discharge planning Notified by staff that patient is asking to go home. Met with patient and his , who confirm that they are ready for discharge. Both the patient and his prefer outpatient PT to home health care. Patient's states they need a longer tub transfer bench, but they can obtain this from patient's brother. Physician notified. No barriers to discharge noted. Will plan for discharge home on 09/30/18.
[2018-09-29 16:27] VITALS: BP 114/80
--- NOTE | 2018-09-29 19:20 | NUR ---
bedside report received from RAMONE SHARP, assume care of pt
--- NOTE | 2018-09-29 19:40 | Individualized Plan of Care ---
Individualized Plan of Care Rehab Nursing IPOC Order Admission Date Sep 25, 2018 at 17:48 Current Orders Orders Admission Order(Inpt,Obs,Sdc) (09/25/18 13:17) Vital Signs: Routine (Order) 08,16,00 (09/25/18 13:17) Sequential Compression Device 08,20 (09/25/18 13:17) Microbiology Technician-Inpt Rehab Con (09/25/18 13:17) Rehab Nursing Orders-Ipoc (09/25/18 13:17) Physical Therapy Rehab Orders (09/25/18 13:17) Occupational Therapy Rehab Ord (09/25/18 13:17) Speech Therapy Rehab Orders (09/25/18 13:17) General/Regular (09/25/18 Dinner) Intake & Output 06,14,22 (09/25/18 13:17) Precautions (Aru) (09/25/18 13:17) Weekly Weight (Lbs) WEEK (09/25/18 13:17) Rehab-Intensity Of Therapy (09/25/18 13:17) Acetaminophen Tablet (Tylenol Tablet) (09/25/18 13:30) Ibuprofen Tablet (Motrin Tablet) (09/25/18 13:30) Alprazolam Tablet (Xanax Tablet) (09/25/18 13:30) Calcium Carbonate Chew Tablet (Antacid C (09/25/18 13:30) Diphenhydramine Tablet (Benadryl Tablet) (09/25/18 13:30) Docusate Sodium Capsule (Colace Capsule) (09/25/18 13:30) Hydrocodone/Apap 5/325 Tablet (Lortab 5 (09/25/18 13:30) Loperamide Capsule (Imodium Capsule) (09/25/18 13:30) Melatonin Tablet (Melatonin Tablet) (09/25/18 13:30) Polyethylene Glycol Powder Pkt (Miralax (09/25/18 21:00) Ondansetron Oral Dissolve Tab (Zofran (09/25/18 13:30) Code/Resuscitation (09/25/18 13:17) Initiate Admission Nursing Pro .admission (09/25/18 13:17) Ambulate 08,12,20 (09/25/18 18:32) Sequential Compression Device 08,20 (09/25/18 18:32) Dvt/Vte Risk - Notifiy Physici 08 (09/25/18 18:32) Tramadol Tablet (Ultram Tablet) (09/25/18 18:45) Carisoprodol Tablet (Soma Tablet) (09/25/18 21:00) Gemfibrozil Tablet (Lopid Tablet) (09/26/18 07:00) Gabapentin Capsule/Tablet (Neurontin Cap (09/25/18 21:00) Metoprolol Tartrate (Ir) Tab (Lopressor (09/25/18 21:00) [place] 3 Capsule (Fish Oil Capsule) (09/26/18 07:00) Oxycodone/Acet 10/325mg Tablet (Percocet (09/26/18 09:00) Oxycodone Extended Release Tab (Oxyconti (09/26/18 09:00) Albuterol/Ipra Inhalation Soln (Duoneb I (09/26/18 14:00) Svn Small Volume Nebulizer (09/26/18 08:50) Cbc With Automated Diff (09/26/18 08:50) Comprehensive Metabolic Panel (09/26/18 08:50) Gabapentin Capsule/Tablet (Neurontin Cap (09/26/18 09:45) Metoprolol Tartrate (Ir) Tab (Lopressor (09/26/18 21:00) [place] 3 Capsule (Fish Oil Capsule) (09/26/18 12:00) Carisoprodol Tablet (Soma Tablet) (09/26/18 21:00) Gemfibrozil Tablet (Lopid Tablet) (09/26/18 16:00) Oxycodone Immediate Rel Tablet (Oxyir Ta (09/26/18 10:00) Consult Physician (09/26/18 09:29) Atorvastatin Tablet (Lipitor Tablet) (09/26/18 21:00) Aspirin Enteric Coated Tablet (Ecotrin T (09/26/18 09:45) Clopidogrel Tablet (Plavix Tablet) (09/26/18 09:45) Gabapentin Capsule/Tablet (Neurontin Cap (09/26/18 13:00) Allopurinol Tablet (Zyloprim Tablet) (09/26/18 09:49) Losartan Tablet (Cozaar Tablet) (09/26/18 09:50) Isosorbide Mononitrate Tablet (Imdur Tab (09/26/18 09:50) Pantoprazole Tablet (Protonix Tablet) (09/26/18 09:51) Patient Visit (09/26/18 ) Pt Eval Moderate Complexity (09/26/18 ) Functional Activities, Ea 15 (09/26/18 ) Exercise Therap, Ea 15 Min (09/26/18 ) Gait Training, Ea 15 Min (09/26/18 ) Patient Visit (09/26/18 ) Speech Sound Lang Comp (09/26/18 ) Patient Visit (09/27/18 ) Wheelchair Mgmt/Propulsn 15min (09/27/18 ) Exercise Therap, Ea 15 Min (09/27/18 ) Patient Visit (09/29/18 ) Wheelchair Mgmt/Propulsn 15min (09/29/18 ) Exercise Therap, Ea 15 Min (09/29/18 ) Gait Training, Ea 15 Min (09/29/18 ) Patient Visit (09/29/18 ) Gait Training, Ea 15 Min (09/29/18 ) Functional Activities, Ea 15 (09/29/18 ) Rehab Nursing Orders: Ongoing Assess. of Function Status Intensity of Therapy to be met Patient to be seen: Min.3h per day/5 of 7d PT IPOC Problem List: Activity Tolerance, Balance, Gait Treatment Plan: Continue Plan of Care Bed Mobility, Concurrent Therapy, Education, Functional Activity Brice, Functional Strength, Group Therapy, Gait, Safety, Therapeutic Exercise, Transfers Treatment Duration: Oct 17, 2018 Frequency: At least 5 of 7 days/Wk (IRF) Estimated Hrs Per Day: 1.5 hours per day OT IPOC Problems: Decreased Activ Tolerance, Dependent Transfers, Impaired Self-Care Skills OT Treatment, Training and Edu: Yes Plan of Care: ADL Retraining, Functional Mobility, Group Exercise/Act as Ind, UE Funct Exercise/Act Treatment Duration: Oct 17, 2018 Frequency: Modified Program (IRF) Estimated Hrs Per Day: 1.[address] IPOC Speech Therapy Treatment Plan: Discontinue ST Treatment Duration: Sep 26, 2018 Frequency: 1 time per week Estimated Hrs Per Day: .25 hour per day Microbiology Technician/Case Mgmt Microbiology Technician/Case Managemen: Discharge Planning Dietitian/Bevel Gear Generator Operator Dietitian/Bevel Gear Generator Operator to monitor nutritional status and make changes and/or recommendations as needed and work with speech pathology on dietary upgrades as the occur. Physician IPOC Medical Issues being managed closely and that require the 24 hour availability of a physician: Severe pain requires long-acting narcotics along with breakthrough narcotics Need to prevent narcotic bowel Smoking cessation with coarse breath sounds requiring nebulizer treatments and monitoring for oxygen requirements Dressing changes to monitor for any cellulitis of the stump site Medical Issues: DVT Prophylaxis, Falls Precautions, Fluid/Electrolyte/ Nutrition Balance, Wound Care Brief Synthesis of Preadmission Screen, Post-Admission Evaluation, and Therapy Evaluations: Patient with a new left [id number] amputation requiring close monitoring and significant pain control when admitted. Physical therapy will work for adequate transfers and fall risk prevention Occupational Therapy will work on transfers in addition to independent ADL management Medical Prognosis: ggod Anticipated Length of Stay: 7 days SONIYA JAMES DO Sep 29, 2018 19:40
--- NOTE | 2018-09-29 19:55 | NUR ---
c/o lt stump pain level 8/10 on numeric scale, Percocet 10/325 1 tab po given
--- NOTE | 2018-09-29 20:30 | NUR ---
pain level 5/10 on numeric scale
--- NOTE | 2018-09-29 21:00 | NUR ---
assessments & interventions completed see assessments & interventions, pt refused miralax 34 grams, scheduled OxyContin 10 mg & soma 350mg states pain level 7/10 on numeric scale
[2018-09-29] MEDS: CARISOPRODOL 350 MG (SOMA) TAB PO SCH (21:26)
[2018-09-29] MEDS: ATORVASTATIN 20 MG (LIPITOR) TABLET PO SCH (21:26)
[2018-09-29 21:28] VITALS: BP 124/76
--- NOTE | 2018-09-29 21:40 | NUR ---
pain level 5/10 on numeric scale, asked this nurse to wake him when he can have pain meds
--- NOTE | 2018-09-30 00:06 | NUR ---
sleeping awakened & reported pain level 10/10 on numeric scale, oxyir 10mg po given
--- NOTE | 2018-09-30 00:40 | NUR ---
sleeping pain level 0/10 on flacc scale
[2018-09-30] MEDS: oxyCODONE/APAP 10/325MG (PERCOCET 10) TABLET PO PRN (03:40)
--- NOTE | 2018-09-30 03:40 | NUR ---
c/o lt stump pain level 9/10 on numeric scale, percocet 10/325 1 tab po given
[2018-09-30 03:45] VITALS: BP 113/80
--- NOTE | 2018-09-30 04:00 | NUR ---
rates pain at 6/10 on numeric scale
[2018-09-30] MEDS: OMEGA 3 (FISH OIL) 1000 MG CAP PO SCH (06:46)
[2018-09-30] MEDS: GEMFIBROZIL 600 MG (LOPID) TAB PO SCH (06:46)
[2018-09-30] MEDS: RT-ALBUTEROL/IPRATROPIUM 3 ML (DUONEB) VIAL INH SCH (07:20)
--- NOTE | 2018-09-30 07:47 | NUR ---
bedside report given to MERRY SHARP
--- NOTE | 2018-09-30 08:30 | Cardiology Progress Note ---
Subjective Date Seen by Provider: Sep 30, 2018 Time Seen by Provider: 08:29 Subjective/Events-last exam patient is sitting in a chair, feeling better, ready to go home. Denied any chest pain or shortness of breath. No palpitation Review of Systems General: No Chills, No Night Sweats, No Fatigue, No Malaise, No Appetite, No Other HEENT: No Head Aches, No Visual Changes, No Eye Pain, No Ear Pain, No Dysphasia , No Sinus Congestion, No Post Nasal Drip, No Sore Throat, No Other Pulmonary: No Dyspnea, No Cough, No Pleuritic Chest Pain, No Other Cardiovascular: No: Chest Pain, Palpitations, Orthopnea, Paroxysmal Noc. Dyspnea, Edema, Lt Headedness, Other Objective-Cardiology Exam Last Set of Vital Signs Vital Signs 09/30/18 09/30/18 03:45 07:21 Temp 97.1 Pulse 88 Resp 18 B/P (MAP) 113/80 (91) Pulse Ox 92 O2 Delivery Room Air Capillary Refill : Less Than 3 Seconds I&O Intake and Output 09/30/18 00:00 Intake Total 3200 ml Output Total 3500 ml Balance -300 ml Intake Oral 3200 ml Output Urine Total 3500 ml # Bowel Movements 1 General: Alert, Oriented X3, Cooperative, No Acute Distress HEENT: Atraumatic, PERRLA Neck: Supple, No JVD, No Thyromegaly, +2 Carotid Pulse No Bruit, No LAD Lungs: Other Heart: Normal S1, Normal S2 Abdomen: Normal Bowel Sounds, Soft, No Tenderness, No Hepatosplenomegaly, No Masses Extremities: No Clubbing, No Cyanosis, No Edema, Normal Pulses, No Tenderness/ Swelling Skin: No Rashes, No Breakdown, No Significant Lesion Neuro: Normal Speech, Strength at 5/5 X4 Ext, Normal Tone, Sensation Intact, Cranial Nerves 3-12 NL, Reflexes 2+, Other (Left AKA) Psych/Mental Status: Mental Status NL, Mood NL A/P-Cardiology Admission Diagnosis Left AKA Peripheral arterial disease Coronary artery disease Hypertension Hyperlipidemia Assessment/Plan Peripheral arterial disease, Buerger's disease, status post left AKA, Had extensive disease, seen and followed by Dr. Marcelo Coronary artery disease, history of Promus drug-eluting stent placement using 2.512 mm in the circumflex artery in July [address] Alcocer after having myocardial infarction. Most recent cardiac catheterization done July 2016 revealed patent stent to circumflex artery with otherwise nonobstructive disease , had non-ST elevation myocardial infarction on July 12, 2017 had total occlusion of the obtuse marginal branch successful the plan of resolute integrity 2.526 mm with good results. Total occlusion of the right coronary artery with failed attempt for intervention, referred to Dr. Warner, had intervention on the right coronary artery with 3 drug-eluting stent overlapping in the right coronary artery. Patient had non-ST elevation IA on July 12, 2018 and underwent cardiac catheterization with Dr. Duran revealing stent thrombosis and occlusion of the distal/mid RCA stents to date successfully with PTCA. Integrilin infusion 12 hour. He is maintained on Plavix and aspirin at this time. History of congestive heart failure, improved, history of Severe left ventricular systolic dysfunction, improved with intervention and maximizing medical therapy, ejection fraction 45-50 percent. Continue to monitor History of deep venous thrombosis/pulmonary embolism, has been maintained on Coumadin in the past, Currently on hold while on aspirin and Plavix Tobaccoism, stopped smoking in June 2017. Continue to monitor Hyperlipidemia, continue to monitor lipids History of gastroesophageal reflux disease. History of elevated liver enzymes, monitor liver enzymes History of deep venous thrombosis. Clinical Quality Measures DVT/VTE Risk/Contraindication: Risk Factor Score Per Nursin RFS Level Per Nursing on Admit: 4+=Very High JEFFERY DE SOUZA MD Sep 30, 2018 08:30
[2018-09-30] MEDS: ISOSORBIDE MONONITRATE 30 MG (IMDUR) TAB PO SCH (08:55)
[2018-09-30] MEDS: ALLOPURINOL 300 MG (ZYLOPRIM) TAB PO SCH (08:55)
[2018-09-30] MEDS: PANTOPRAZOLE 20 MG TABLET (PROTONIX) PO SCH (08:55)
[2018-09-30] MEDS: oxyCODONE ER 10 MG (OxyCONTIN CR) TAB PO SCH (08:55)
[2018-09-30] MEDS: GABAPENTIN 600 MG (NEURONTIN) TAB PO SCH (08:55)
[2018-09-30] MEDS: CLOPIDOGREL 75 MG (PLAVIX) TABLET PO SCH (08:55)
[2018-09-30] MEDS: ASPIRIN E.C. 81 MG (ECOTRIN) TAB PO SCH (08:55)
[2018-09-30] MEDS: meTOprolol TARTRATE 25 MG (LOPRESSOR) TABLET PO SCH (08:56)
[2018-09-30] MEDS: LOSARTAN 50 MG (COZAAR) TAB PO SCH (08:56)
[2018-09-30] MEDS: POLYETHYLENE GLYCOL 17 GM (MIRALAX) PACK PO SCH (08:56)
[2018-09-30] MEDS ORDERED: OXC10TCR PO (08:58)
[2018-09-30] MEDS ORDERED: OXYC1TAB12 PO (08:58)
--- NOTE | 2018-09-30 09:00 | D/C HH Face to Face Order ---
D/C Face to Face Orders Instructions for Patient Via [facility], Patient Instructions/FollowUp: Dr Flowers in 1 week Physician to follow Patient: Dr flowers Discharge Diet for Home: Cardiac Diet Patient Problems: Left AKA CAD PVD COPD Smoker Patient Data-Allergies,Ht & Wt Patient Allergies: Coded Allergies: Penicillins (Unverified Allergy, Mild, 01/27/09) Height (Feet): 5 Height (Inches): 4.00 Weight (Pounds): 203 Weight (Ounces): 1.6 Home Health Need/Face to Face Date of Face to Face: Sep 30, 2018 Clinical Findings: Unsteady gait I have seen Pt [id number]: Yes Discharged To: Home Diagnosis/Conditions: Left AKA CAD PVD COPD Smoker Patient is Homebound due to: Angela fall risk due to instabilty Homebound Status Due to the above stated illness, injury or surgical procedure (medical condition or diagnosis) and associated clinical findings, the patient is homebound because of his/her inability to leave home except with aid of a supportive device and/or person AND leaving the home requires a considerable and taxing effort or is medically contraindicated. Pt req the following assistanc: Walker, Wheelchair Home Health Nursing Orders Home Health Services Order: Physical Therapy-Evaluate & Treat Certify Stmt I certify that this patient is under my care and that I, a nurse practitioner or a physician; a administrative assistant office manager working with me, had a face to face encounter that - meets the physician face to face encounter requirements with this patient as dated. SONIYA JAMES DO Sep 30, 2018 09:00
--- NOTE | 2018-09-30 09:01 | Discharge Summary ---
Diagnosis/Chief Complaint Date of Admission Sep 25, 2018 at 17:48 Date of Discharge Discharge Date: Sep 30, 2018 Discharge Diagnosis Assessment: Status post uneventful left knee amputation by Dr. Marcelo and [facility] Recent DC [address] Rhoades Smoker counseled cessation Coarse breath sounds nebulizer treatments have resolved this issue PVD Discharge Summary Discharge Physical Examination Allergies: Coded Allergies: Penicillins (Unverified Allergy, Mild, 01/27/09) Vitals & I&Os Vital Signs Date Time Temp Pulse Resp B/P (MAP) Pulse Ox O2 Delivery O2 Flow Rate FiO2 09/30/18 15:30 100 20 138/74 93 Room Air 09/30/18 03:45 97.1 Hospital Course Was the Problem List Reviewed?: Yes Hospital course: Patient had an uneventful inpatient rehab hospital course after he was admitted following an uncomplicated left [id number] amputation. Smoking cessation was aggressively counseled due to the fact that peripheral vascular disease ultimately was from Buerger's disease which resulted in the amputation. Coarse breath sounds were resolved at time of discharge with nebulizer treatments. Pain was controlled with long-acting OxyContin with Percocet for breakthrough. Overall patient was participating in all therapies was able to obtain assistive devices in order to be discharged home and will have close follow-up with Dr. Flowers and have dressing changes daily per nursing instructions. Labs (last 24 hrs) Laboratory Tests 09/26/18 09:30: White Blood Count 11.2H, Red Blood Count 4.55, Hemoglobin 13.3, Hematocrit 41, Mean Corpuscular Volume 89, Mean Corpuscular Hemoglobin 29, Mean Corpuscular Hemoglobin Concent 33, Red Cell Distribution Width 14.9H, Platelet Count 353, Mean Platelet Volume 9.0, Neutrophils (%) (Auto) 66, Lymphocytes (%) (Auto) 20, Monocytes (%) (Auto) 10, Eosinophils (%) (Auto) 4, Basophils (%) (Auto) 0, Neutrophils # (Auto) 7.4, Lymphocytes # (Auto) 2.3, Monocytes # (Auto) 1.2H, Eosinophils # (Auto) 0.4H, Basophils # (Auto) 0.1, Sodium Level 138, Potassium Level 4.1, Chloride Level 99, Carbon Dioxide Level 28, Anion Gap 11, Blood Urea Nitrogen 9, Creatinine 0.71, Estimat Glomerular Filtration Rate > 60, BUN/ Creatinine Ratio 13, Glucose Level 100, Calcium Level 9.4, Corrected Calcium 9.5 , Total Bilirubin 0.8, Aspartate Amino Transf (AST/SGOT) 18, Alanine Aminotransferase (ALT/SGPT) 10, Alkaline Phosphatase 97, Total Protein 6.7, Albumin 3.9 Pending Labs Laboratory Tests 09/26/18 09:30: White Blood Count 11.2, Red Blood Count 4.55, Hemoglobin 13.3, Hematocrit 41, Mean Corpuscular Volume 89, Mean Corpuscular Hemoglobin 29, Mean Corpuscular Hemoglobin Concent 33, Red Cell Distribution Width 14.9, Platelet Count 353, Mean Platelet Volume 9.0, Neutrophils (%) (Auto) 66, Lymphocytes (%) (Auto) 20, Monocytes (%) (Auto) 10, Eosinophils (%) (Auto) 4, Basophils (%) (Auto) 0, Neutrophils # (Auto) 7.4, Lymphocytes # (Auto) 2.3, Monocytes # (Auto) 1.2, Eosinophils # (Auto) 0.4, Basophils # (Auto) 0.1, Sodium Level 138, Potassium Level 4.1, Chloride Level 99, Carbon Dioxide Level 28, Anion Gap 11, Blood Urea Nitrogen 9, Creatinine 0.71, Estimat Glomerular Filtration Rate > 60, BUN/ Creatinine Ratio 13, Glucose Level 100, Calcium Level 9.4, Corrected Calcium 9.5 , Total Bilirubin 0.8, Aspartate Amino Transf (AST/SGOT) 18, Alanine Aminotransferase (ALT/SGPT) 10, Alkaline Phosphatase 97, Total Protein 6.7, Albumin 3.9 Discharge Home Medications: Active Scripts Active Percocet 10-325 mg Tablet (Oxycodone HCl/Acetaminophen) 1 Each Tablet 1 Tab PO Q4HR PRN Oxycontin (Oxycodone HCl) 10 Mg Tab.er.12h 10 Mg PO BID Reported Metoprolol Tartrate 25 Mg Tablet 25 Mg PO BID Oxycodone HCl 10 Mg Tablet 10 Mg PO EVERY 4-6 HOURS PRN Plavix (Clopidogrel Bisulfate) 75 Mg Tablet 75 Mg PO DAILY Aspirin EC (Aspirin) 81 Mg Tablet.dr 81 Mg PO DAILY Gemfibrozil 600 Mg Tablet 600 Mg PO BID Isosorbide Mononitrate ER (Isosorbide Mononitrate) 30 Mg Tab.er.24h 30 Mg PO DAILY Losartan Potassium 50 Mg Tablet 50 Mg PO DAILY Allopurinol 100 Mg Tablet 300 Mg PO DAILY Prilosec Otc (Omeprazole Magnesium) 20 Mg Tablet.dr 20 Mg PO DAILY Fish Oil 1,000 mg Capsule (Leslie 3 Polyunsat Fatty Acids) 1,000 Mg Cap 1,000 Mg PO TID Atorvastatin Calcium 40 Mg Tablet 40 Mg PO HS Gabapentin 600 Mg Tablet 600 Mg PO QID Carisoprodol 350 Mg Tablet 350 Mg PO HS Instructions to patient/family Please see electronic discharge instructions given to patient. Diagnosis/Problems Diagnosis/Problems (1) Above knee amputation of left lower extremity (2) CAD (coronary artery disease) (3) Myocardial infarct, old (4) Smoker (5) PVD (peripheral vascular disease) (6) COPD (chronic obstructive pulmonary disease) Clinical Quality Measures DVT/VTE Risk/Contraindication: Risk Factor Score Per Nursin RFS Level Per Nursing on Admit: 4+=Very High SONIYA JAMES DO Sep 30, 2018 09:01
--- NOTE | 2018-09-30 10:09 | Therapy Team Discharge Summary ---
Therapy Discharge Summary Discharge Recommendations Date of Discharge Therapy D/C Recommendations: Home w/ Family Support Physical Therapy Patient came to rehab following a left AKA. Upon evaluation patient performed bed mobility with SBA, supine <-> sit with CGA, sit <-> stand with CGA, transfers with CGA, and was able to hop 5' with a rolling walker with CGA. Patient has been performing bed mobility and transfer training, balance and endurance training, functional strengthening, stair training, gait training, and education. Patient has made good progress and has met all of his fpc goals. Now, patient performs bed mobility and transfers with mod I, car transfer mod I, ambulates 150' with a rolling walker with SBA (including 50' with at least 2 turns of 90 degrees and 10' over an uneven surface), can propel a manual wheelchair 150' with mod I, and can go up and down 4 steps using 2 handrails with SBA. Patient is being discharged from this facility today and will be discharged from PT at this time. Occupational Therapy Decreased Activ Tolerance, Dependent Transfers, Impaired Self-Care Skills PT Longterm Goals Longterm Goals PT Longterm Goals Time Frame: Oct 17, 2018 Transfers (B,C,W/C) (FIM): 6 Roll Left to Right (QC): 6 Sit to Lying (QC): 6 Lying-Sitting on Side/Bed(QC): 6 Sit to Stand (QC): 6 Chair/Stj-uz-Angbd Xfer(QC): 6 Car Transfer (QC): 4 Gait (FIM): 2 Distance: 50' Walk 10 feet (QC): 4 Walk 10ft-Uneven Surface(QC): 4 Walk 50ft with 2 Turns (QC): 4 Gait Level of Assist: 5 Gait Assistive Device: FWW Wheelchair (FIM): 6 Distance: 150' Wheelchair Level of Assist: 6 Wheel 50 feet with 2 turns (QC: 6 Stairs (FIM): 1 # of Steps: 1 1 Step (curb) (QC): 4 Stairs Level Of Assist: 4 OT Longterm Goals Longterm Goals Time Frame: Oct 17, 2018 Eating (FIM): 7 Eating (QC): 6 Oral Hygiene (QC): 6 Grooming(FIM): 6 Bathing(FIM): 6 Shower/Bathe Self (QC): 6 Upper Body Dressing(FIM): 6 Upper Body Dressing (QC): 6 Lower Body Dressing(FIM): 6 Lower Body Dressing (QC): 6 On/Off Footwear (QC): 6 Toileting Hygiene (QC): 6 Toilet/Commode Transfer(FIM): 6 Toilet/Commode Transfer (QC): 6 Shower Transfer(FIM): 5 Additional Goals: 1-Demonstrate ADL Tasks, 2-Verbalize Understanding, 3- ImproveStrength/Brice 1=Demonstrate adherence to instructed precautions during ADL tasks. 2=Patient will verbalize/demonstrate understanding of assistive devices/ modifications for ADL. 3=Patient will improve strength/tolerance for activity to enable patient to perform ADL's. EILEEN MAY PT Sep 30, 2018 10:09
--- NOTE | 2018-09-30 12:55 | Therapy Team Discharge Summary ---
Therapy Discharge Summary Discharge Recommendations Date of Discharge Therapy D/C Recommendations: Home w/ Family Support Occupational Therapy Pt admitted to ARU following left AKA. On admission pt required min assist with toilet transfer, LE dressing, and bathing. Skilled OT intervention focused on ADL training, transfers, strengthening, and safety. Pt made progress with therapy and by discharge is completing toilet transfer and grooming with modified independence; toileting, shower transfer, and UE dressing with SBA; and bathing with min assist. Pt met goals for grooming, toilet transfer, and shower transfer. Pt did not meet goals for dressing and bathing as pt requested assist from spouse and states she will help him at home. Pt discharged home with spouse. D/C ARU OT at this time. Decreased Activ Tolerance, Dependent Transfers, Impaired Self-Care Skills PT Psych Tech Goals Psych Tech Goals PT Psych Tech Goals Time Frame: Oct 17, 2018 Transfers (B,C,W/C) (FIM): 6 Roll Left to Right (QC): 6 Sit to Lying (QC): 6 Lying-Sitting on Side/Bed(QC): 6 Sit to Stand (QC): 6 Chair/Lrv-cj-Qgnzw Xfer(QC): 6 Car Transfer (QC): 4 Gait (FIM): 2 Distance: 50' Walk 10 feet (QC): 4 Walk 10ft-Uneven Surface(QC): 4 Walk 50ft with 2 Turns (QC): 4 Gait Level of Assist: 5 Gait Assistive Device: FWW Wheelchair (FIM): 6 Distance: 150' Wheelchair Level of Assist: 6 Wheel 50 feet with 2 turns (QC: 6 Stairs (FIM): 1 # of Steps: 1 1 Step (curb) (QC): 4 Stairs Level Of Assist: 4 OT Psych Tech Goals Psych Tech Goals Time Frame: Oct 17, 2018 Eating (FIM): 7 Eating (QC): 6 Oral Hygiene (QC): 6 Grooming(FIM): 6 Bathing(FIM): 6 Shower/Bathe Self (QC): 6 Upper Body Dressing(FIM): 6 Upper Body Dressing (QC): 6 Lower Body Dressing(FIM): 6 Lower Body Dressing (QC): 6 On/Off Footwear (QC): 6 Toileting Hygiene (QC): 6 Toilet/Commode Transfer(FIM): 6 Toilet/Commode Transfer (QC): 6 Shower Transfer(FIM): 5 Additional Goals: 1-Demonstrate ADL Tasks, 2-Verbalize Understanding, 3- ImproveStrength/Brice 1=Demonstrate adherence to instructed precautions during ADL tasks. 2=Patient will verbalize/demonstrate understanding of assistive devices/ modifications for ADL. 3=Patient will improve strength/tolerance for activity to enable patient to perform ADL's. KITTY HOLDER OT Sep 30, 2018 12:54
[2018-09-30 15:30] VITALS: BP 138/74
== END 2018-09-30 10:25 | disposition home or self-care (01) | DRG 560 ==
PROVIDERS: ADMIT Internal Medicine; ATTEND Internal Medicine
DX: Z47.81 Encounter for orthopedic aftercare following surgical amputation (principal); Z89.612 Acquired absence of left leg above knee; I73.1 Thromboangiitis obliterans [Buerger's disease]; I11.0 Hypertensive heart disease with heart failure; I50.22 Chronic systolic (congestive) heart failure; I25.10 Atherosclerotic heart disease of native coronary artery without angina pectoris; E78.5 Hyperlipidemia, unspecified; K21.9 Gastro-esophageal reflux disease without esophagitis; J44.9 Chronic obstructive pulmonary disease, unspecified; M10.9 Gout, unspecified; M54.9 Dorsalgia, unspecified; Z87.891 Personal history of nicotine dependence; Z95.5 Presence of coronary angioplasty implant and graft; I25.2 Old myocardial infarction; Z86.711 Personal history of pulmonary embolism; Z86.718 Personal history of other venous thrombosis and embolism
CPT/HCPCS: 36415; 80053; 85025; 90471; 94640; 94760

== ENCOUNTER 2018-10-23 09:09 | Emergency (ER) | payer BC ==
[~2018-10-23] VITALS: Ht 162.6 cm; Wt 86.2 kg
[~2018-10-23 09:09] MED LIST changes: +ALLO100T PO; +OXC10TCR PO; +OXYC1TAB12 PO
--- NOTE | 2018-10-23 10:56 | NUR ---
[facility] IN[facility] REMOVED 1 STAPLE AND 8 SUTURES FROM L STUMP NO REDNESS OR SEWELLING TO AREA
--- NOTE | 2018-10-23 11:06 | ED General ---
General Chief Complaint: Skin/Wound Problems Stated Complaint: YEN AND STITCHES REMOVED FROM STUMP Nursing Triage Note: TO ED PER W/C REPORTS THAT HAD BKA END OF AUG BY DR WILLIAM 1/2 OF SUTURES REMOVED HERE TO HAVE REST OF SUTURES REMOVED. Nursing Sepsis Screen: No Definite Risk Source of Information: Patient Exam Limitations: No Limitations History of Present Illness Date Seen by Provider: Oct 23, 2018 Time Seen by Provider: 10:10 Initial Comments This 48-year-old gentleman presents to the emergency room with a left AKA about one month ago. He had some of his sutures and yen removed in the surgeon's office last week. He presents today to have the remaining sutures/yen removed. I contacted his surgeon, Dr. Chun Jonas, in [place]. His staff reports patient was to go to the primary care office to have the remaining sutures and yen removed. Patient states the primary care office advised his can remove them because she has some medical experience. His has not felt comfortable removing them. Dr. Jonas office staff states it is time to have the yen and sutures removed and they are okay with us doing that here. The wound is healing well and appears clean, dry, and intact. Allergies and Home Medications Allergies Coded Allergies: Penicillins (Unverified Allergy, Mild, 01/27/09) Home Medications Allopurinol 100 Mg Tablet, 300 MG PO DAILY, (Reported) Aspirin 81 Mg Tablet.dr, 81 MG PO DAILY, (Reported) Atorvastatin Calcium 40 Mg Tablet, 40 MG PO HS, (Reported) Carisoprodol 350 Mg Tablet, 350 MG PO HS, (Reported) Clopidogrel Bisulfate 75 Mg Tablet, 75 MG PO DAILY, (Reported) Gabapentin 600 Mg Tablet, 600 MG PO QID, (Reported) Gemfibrozil 600 Mg Tablet, 600 MG PO BID, (Reported) Isosorbide Mononitrate 30 Mg Tab.er.24h, 30 MG PO DAILY, (Reported) Losartan Potassium 50 Mg Tablet, 50 MG PO DAILY, (Reported) Metoprolol Tartrate 25 Mg Tablet, 25 MG PO BID, (Reported) [place] 3 Polyunsat Fatty Acids 1,000 Mg Cap, 1,000 MG PO TID, (Reported) Omeprazole Magnesium 20 Mg Tablet.dr, 20 MG PO DAILY, (Reported) Oxycodone HCl 10 Mg Tablet, 10 MG PO EVERY 4-6 HOURS PRN for PAIN-SEVERE, ( Reported) Oxycodone HCl 10 Mg Tab.er.12h, 10 MG PO BID Prescribed by: SONIYA JAMES on 09/30/18857 Oxycodone HCl/Acetaminophen 1 Each Tablet, 1 TAB PO Q4HR PRN for PAIN-MODERATE Prescribed by: SONIYA JAMES on 09/30/18857 Patient Home Medication List Home Medication List Reviewed: Yes Review of Systems Review of Systems Constitutional: no symptoms reported Musculoskeletal: see HPI Skin: see HPI Past Qhzywrr-Ebdhdc-Pvjxzj Hx Patient Social History Alcohol Use: Denies Use Recreational Drug Use: No Smoking Status: Current Everyday Smoker Type Used: Cigarettes Former Smoker, Quit: Jun 26, 2017 2nd Hand Smoke Exposure: No Recent Foreign Travel: No Contact w/Someone Who Travel: No Recent Infectious Disease Expo: No Recent Hopitalizations: No Immunizations Up To Date PED Vaccines UTD: Yes Date of Pneumonia Vaccine: Jul 28, 2012 Date of Influenza Vaccine: Sep 25, 2018 Seasonal Allergies Seasonal Allergies: No Past Medical History Surgeries: Yes (CARDIAC CATHS--STENTS X 1. LAST CATH 07/11/17 WITH STENT X 1) Amputation, Cardiac, Coronary Stent, Orthopedic (left AKA) Respiratory: Yes Pulmonary Embolism Currently Using CPAP: No Currently Using BIPAP: No Cardiac: Yes (ME X 2; STENTS X 4; -NSTEMI 07/11/17 WITH 1 STENT PLACED) Coronary Artery Disease, Deep Vein Thrombosis, Heart Attack, High Cholesterol, Hypertension Neurological: No Reproductive Disorders: No Genitourinary: No Gastrointestinal: Yes Gastroesophageal Reflux Musculoskeletal: Yes (HYDROCODONE + IBUPROFEN DAILY) Amputee, Chronic Back Pain, Gout Endocrine: No HEENT: No Cancer: No Psychosocial: No Integumentary: No Blood Disorders: Yes (PROTEIN S DEFICIENCY--DVT'S AND P.E.'S AND ME X 2) Family Medical History Arthritis G8 BROTHER Blood clots 19 MOTHER ( of blood clot) Cardiac disorder 19 FATHER Diabetes mellitus G8 BROTHER FH: cancer paternal grandmother FHx: inflammatory bowel disease G8 BROTHER No Family History of: FH: sudden cardiac (SCD) Heart Disease, Vascular Disease Physical Exam Vital Signs Vital Signs - First Documented 10/23/18 09:23 Temp 97.4 Pulse 92 Resp 18 B/P (MAP) 143/92 (109) Pulse Ox 94 O2 Delivery Room Air Capillary Refill : Less Than 3 Seconds Height, Weight, BMI Height: 5'4.00" Weight: 190lbs. 1.6oz. [id number]; 33.8 BMI Method:Stated General Appearance: No Apparent Distress, WD/WN Respiratory: Lungs Clear, Normal Breath Sounds, No Accessory Muscle Use Cardiovascular: Regular Rate, Rhythm, No Edema, No Murmur Extremity: Other (left AKA is clean, dry, and intact with some sutures and one staple remaining. No signs of infection or inflammation.) Neurologic/Psychiatric: Alert, Oriented x3 Skin: Normal Color, Warm/Dry Progress/Results/Core Measures Suspected Sepsis Recent Fever Within 48 Hours: No Infection Criteria Present: None New/Unexplained Altered Menta: No Sepsis Screen: No Definite Risk SIRS Temperature:97.4 Pulse: 92 Respiratory Rate: 18 Blood Pressure 143 /92 Mean: 109 Results/Orders Vital Signs/I&O 10/23/18 09:23 Temp 97.4 Pulse 92 Resp 18 B/P (MAP) 143/92 (109) Pulse Ox 94 O2 Delivery Room Air Capillary Refill : Less Than 3 Seconds Blood Pressure Mean: 109 Progress Note : Progress Note Sutures and yen were removed by nursing staff after cleaning with alcohol. Steri-Strips were applied for added support. Departure Impression Primary Impression: Visit for suture removal Disposition: 01 HOME, SELF-CARE Condition: Improved Departure-Patient Inst. Decision time for Depature: 10:20 Referrals: MARTHA LARSON MD (PCP) Primary Care Physician Patient Instructions: Amputation, Tgnim-sms-Qypv Add. Discharge Instructions: Allow the Steri-Strips to peel off naturally. Newly trim loose edges off with a small pad scissors or fingernail clippers. Monitor for signs of infection such as increasing redness, increasing swelling, puslike drainage, fever, etc. Return to care promptly if you notice symptoms. All discharge instructions reviewed with patient and/or family. Voiced understanding. MENDOZA CRAWFORD MD Oct 23, 2018 11:06
[2018-10-23 11:12] VITALS: BP 143/92
== END 2018-10-23 11:12 | disposition home or self-care (01) ==
LOC: EDUNIT# 09:09 → ER 09:12
DX: Z48.89 Encounter for other specified surgical aftercare (principal); I25.2 Old myocardial infarction; I25.10 Atherosclerotic heart disease of native coronary artery without angina pectoris; K21.9 Gastro-esophageal reflux disease without esophagitis; M10.9 Gout, unspecified; E78.00 Pure hypercholesterolemia, unspecified; I10 Essential (primary) hypertension; F17.210 Nicotine dependence, cigarettes, uncomplicated; Z95.5 Presence of coronary angioplasty implant and graft; Z86.718 Personal history of other venous thrombosis and embolism; Z82.49 Family history of ischemic heart disease and other diseases of the circulatory system; Z96.652 Presence of left artificial knee joint; Z86.711 Personal history of pulmonary embolism; Z98.890 Other specified postprocedural states; Z88.0 Allergy status to penicillin; Z79.82 Long term (current) use of aspirin; Z79.02 Long term (current) use of antithrombotics/antiplatelets
CPT/HCPCS: 99282

== ENCOUNTER 2018-12-04 10:47 | Outpatient (RCR) | payer BC, MEDICAID | END 2018-12-04 12:27 | disposition home or self-care (01) | PROVIDERS: ATTEND Nurse Practitioner Family | DX: Z89.612 Acquired absence of left leg above knee (principal) ==

== ENCOUNTER 2019-06-15 06:55 | Day surgery (SDC) | payer MEDICAID ==
[2019-06-15] VITALS (9 sets, daily range): BP systolic 120–141; BP diastolic 74–90
[~2019-06-15] VITALS: Ht 160 cm; Wt 97.7 kg
[~2019-06-15 06:55] MED LIST changes: -OMEP20CA12 PO; +OMEP20CA13 PO; -TIZA4TAB3 PO; +TIZA4TAB4 PO
[2019-06-15] MEDS ORDERED: NITROGLYCERIN 0.4 MG SL TABS BTL 25'S SL ONE (07:12)
[2019-06-15] MEDS ORDERED: ASPIRIN 81 MG CHEW (CHILDREN'S ASA) ONE (07:12)
[2019-06-15] MEDS ORDERED: NITROGLYCERIN 0.4 MG SL TABS BTL 25'S SL PRN (07:15)
[2019-06-15] MEDS ORDERED: ASPIRIN 81 MG CHEW (CHILDREN'S ASA) PO ONE (07:15)
[2019-06-15] MEDS ORDERED: NS IV 1000 ML 1,000 ML IV SCH ×2 (07:15→09:40)
--- NOTE | 2019-06-15 07:16 | ED Chest Pain ---
General Chief Complaint: Chest Pain Stated Complaint: CHEST PAIN Nursing Triage Note: pt to rm 5 by wheelchair with complaint of chest pain that started this am. states took nitro 20 min captain cannery tender. pt has hx of mi and sees dr rhoades. Nursing Sepsis Screen: No Definite Risk Source: patient Exam Limitations: no limitations History of Present Illness Date Seen by Provider: Jun 15, 2019 Time Seen by Provider: 07:11 Initial Comments This 48-year-old white male presents with chest pain that began this morning. Patient took nitroglycerin first chest pain prior to arrival. This relieved his chest pain. 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 Rhoades. Patient had a cardiac cath approximately one year ago. He has had 4 stents in the past. The patient relates his chest pain and nausea felt like his previous NC. Past medical history includes multiple episodes of blood clots. He uses Plavix. Patient smokes heavily. He denies alcohol or recreational drugs. Allergies and Home Medications Allergies Coded Allergies: Penicillins (Unverified Allergy, Mild, 01/27/09) Home Medications Allopurinol 100 Mg Tablet, 300 MG PO DAILY, (Reported) Aspirin 81 Mg Tablet.dr, 81 MG PO DAILY, (Reported) Atorvastatin Calcium 40 Mg Tablet, 40 MG PO HS, (Reported) Carisoprodol 350 Mg Tablet, 350 MG PO HS, (Reported) Clopidogrel Bisulfate 75 Mg Tablet, 75 MG PO DAILY, (Reported) Gabapentin 600 Mg Tablet, 600 MG PO QID, (Reported) Gemfibrozil 600 Mg Tablet, 600 MG PO BID, (Reported) Isosorbide Mononitrate 30 Mg Tab.er.24h, 30 MG PO DAILY, (Reported) Losartan Potassium 50 Mg Tablet, 50 MG PO DAILY, (Reported) Metoprolol Tartrate 25 Mg Tablet, 25 MG PO BID, (Reported) [place] 3 Polyunsat Fatty Acids 1,000 Mg Cap, 1,000 MG PO TID, (Reported) Omeprazole Magnesium 20 Mg Tablet.dr, 20 MG PO DAILY, (Reported) Oxycodone HCl 10 Mg Tablet, 10 MG PO EVERY 4-6 HOURS PRN for PAIN-SEVERE, (Reported) Oxycodone HCl 10 Mg Tab.er.12h, 10 MG PO BID Prescribed by: SONIYA JAMES on 09/30/18 0858 Oxycodone HCl/Acetaminophen 1 Each Tablet, 1 TAB PO Q4HR PRN for PAIN-MODERATE Prescribed by: SONIYA JAMES on 09/30/18 0858 Patient Home Medication List Home Medication List Reviewed: Yes Review of Systems Review of Systems Constitutional: No fever; malaise EENTM: No Blurred Vision Respiratory: Denies Cough, Denies Shortness of Air Cardiovascular: See HPI, Chest Pain Gastrointestinal: Nausea Genitourinary: No Symptoms Reported Musculoskeletal: No back pain Skin: No change in color, No rash Psychiatric/Neurological: No Symptoms Reported Endocrine: No Symptoms Reported Hematologic/Lymphatic: No Symptoms Reported Past Wkhxzym-Shnheo-Nqcsyn Hx Past Med/Social Hx: Reviewed Nursing Past Med/Soc Hx Patient Social History Alcohol Use: Denies Use Recreational Drug Use: No Smoking Status: Current Everyday Smoker Type Used: Cigarettes Former Smoker, Quit: Jun 26, 2017 2nd Hand Smoke Exposure: No Recent Foreign Travel: No Contact w/Someone Who Travel: No Recent Infectious Disease Expo: No Recent Hopitalizations: No Physical Abuse: No Sexual Abuse: No Mistreated: No Fear: No Immunizations Up To Date PED Vaccines UTD: Yes Date of Pneumonia Vaccine: Jul 28, 2012 Date of Influenza Vaccine: Sep 25, 2018 Seasonal Allergies Seasonal Allergies: No Past Medical History Surgeries: Yes (CARDIAC CATHS--STENTS X 1. LAST CATH 07/11/17 WITH STENT X 1) Amputation, Cardiac, Coronary Stent, Orthopedic Respiratory: Yes Pulmonary Embolism Currently Using CPAP: No Currently Using BIPAP: No Cardiac: Yes (NC X 2; STENTS X 4; -NSTEMI 07/11/17 WITH 1 STENT PLACED) Coronary Artery Disease, Deep Vein Thrombosis, Heart Attack, High Cholesterol, Hypertension Neurological: No Reproductive Disorders: No Genitourinary: No Gastrointestinal: Yes Gastroesophageal Reflux Musculoskeletal: Yes (HYDROCODONE + IBUPROFEN DAILY) Amputee, Chronic Back Pain, Gout Endocrine: No HEENT: No Cancer: No Psychosocial: No Integumentary: No Blood Disorders: Yes (PROTEIN S DEFICIENCY--DVT'S AND P.E.'S AND NC X 2) Family Medical History Arthritis G8 BROTHER Blood clots 19 MOTHER ( of blood clot) Cardiac disorder 19 FATHER Diabetes mellitus G8 BROTHER FH: cancer paternal grandmother FHx: inflammatory bowel disease G8 BROTHER No Family History of: FH: sudden cardiac (SCD) Heart Disease, Vascular Disease Physical Exam Vital Signs Vital Signs - First Documented 06/15/19 07:00 Temp 36.0 Pulse 85 Resp 12 B/P (MAP) 142/108 (119) Pulse Ox 95 O2 Delivery Nasal Cannula O2 Flow Rate 3.00 Capillary Refill : Less Than 3 Seconds Height, Weight, BMI Height: 5'4.00" Weight: 190lbs. 1.6oz. [id number]; 38.00 BMI Method:Stated General Appearance: No Apparent Distress, WD/WN HEENT: Normal ENT Inspection Respiratory: Lungs Clear Cardiovascular: Regular Rate, Rhythm Gastrointestinal: Normal Bowel Sounds Extremity: Normal Capillary Refill, Other (status post left [id number]-[id number] amputation.) Neurologic/Psychiatric: Alert, Oriented x3, No Motor/Sensory Deficits Skin: Normal Color, Warm/Dry Progress/Results/Core Measures Results/Orders Lab Results Laboratory Tests Test 06/15/19 07:00 Range/Units White Blood Count 8.1 4.3-11.0 10^3/uL Red Blood Count 5.91 H 4.35-5.85 10^6/uL Hemoglobin 16.6 13.3-17.7 G/DL Hematocrit 52 40-54 % Mean Corpuscular Volume 88 80-99 FL Mean Corpuscular Hemoglobin 28 25-34 PG Mean Corpuscular Hemoglobin Concent 32 32-36 G/DL Red Cell Distribution Width 17.7 H 10.0-14.5 % Platelet Count 284 130-400 10^3/uL Mean Platelet Volume 9.3 7.4-10.4 FL Neutrophils (%) (Auto) 62 42-75 % Lymphocytes (%) (Auto) 26 12-44 % Monocytes (%) (Auto) 8 0-12 % Eosinophils (%) (Auto) 4 0-10 % Basophils (%) (Auto) 1 0-10 % Neutrophils # (Auto) 5.0 1.8-7.8 X 10^3 Lymphocytes # (Auto) 2.1 1.0-4.0 X 10^3 Monocytes # (Auto) 0.7 0.0-1.0 X 10^3 Eosinophils # (Auto) 0.3 0.0-0.3 10^3/uL Basophils # (Auto) 0.1 0.0-0.1 10^3/uL Prothrombin Time 11.9 L 12.2-14.7 SEC INR Comment 0.8 0.8-1.4 Activated Partial Thromboplast Time 30 24-35 SEC Sodium Level 140 135-145 MMOL/L Potassium Level 4.1 3.6-5.0 MMOL/L Chloride Level 99 98-107 MMOL/L Carbon Dioxide Level 31 21-32 MMOL/L Anion Gap 10 5-14 MMOL/L Blood Urea Nitrogen 6 L 7-18 MG/DL Creatinine 0.82 0.60-1.30 MG/DL Estimat Glomerular Filtration Rate > 60 BUN/Creatinine Ratio 7 Glucose Level 132 H 70-105 MG/DL Calcium Level 9.8 8.5-10.1 MG/DL Corrected Calcium 9.7 8.5-10.1 MG/DL Magnesium Level 2.0 1.6-2.4 MG/DL Total Bilirubin 0.3 0.1-1.0 MG/DL Aspartate Amino Transf (AST/SGOT) 18 5-34 U/L Alanine Aminotransferase (ALT/SGPT) 17 0-55 U/L Alkaline Phosphatase 106 40-136 U/L Myoglobin 42.9 10.0-92.0 NG/ML Troponin I 0.033 H <0.028 NG/ML Total Protein 7.4 6.4-8.2 GM/DL Albumin 4.1 3.2-4.5 GM/DL My Orders Orders - CORINNA, FREDRICK Fernandes MD Cbc With Automated Diff (06/15/19 07:09) Magnesium (06/15/19 07:09) Chest 1 View, Ap/Pa Only (06/15/19 07:09) Ekg Tracing (06/15/19 07:09) Cardiac Profile 1 (06/15/19 07:09) Comprehensive Metabolic Panel (06/15/19 07:09) Myoglobin Serum (06/15/19 07:09) Protime With Inr (06/15/19 07:09) Partial Thromboplastin Time (06/15/19 07:09) O2 (06/15/19 07:09) Monitor-Rhythm Ecg Trace Only (06/15/19 07:09) Lipid Panel (06/16/19 06:00) Ed Iv/Invasive Line Start (06/15/19 07:09) Nitroglycerin 0.4 Mg Btl 25's (Nitrostat (06/15/19 07:15) Aspirin Chewable Tablet (Baby Aspirin Ch (06/15/19 07:15) Ns Iv 1000 Ml (Sodium Chloride 0.9%) (06/15/19 07:15) Nitroglycerin 0.4 Mg Btl 25's (Nitrostat (06/15/19 07:12) Aspirin Chewable Tablet (Baby Aspirin Ch (06/15/19 07:12) Medications Given in ED Current Medications Medications Dose Ordered Sig/Erik Route Start Time Stop Time Status Last Admin Dose Admin Aspirin 324 mg ONCE ONCE PO 06/15/19 07:15 06/15/19 07:16 DC 06/15/19 07:15 324 MG Nitroglycerin 0.4 mg UD PRN SL 06/15/19 07:15 06/15/19 07:16 0.4 MG Vital Signs/I&O 06/15/19 06/15/19 07:00 07:05 Temp 36.0 Pulse 85 Resp 12 B/P (MAP) 142/108 (119) Pulse Ox 95 96 O2 Delivery Nasal Cannula Room Air O2 Flow Rate 3.00 3.00 Blood Pressure Mean: 119 Progress Progress Note : Time: 07:48 Progress Note The patient's EKG demonstrated a sinus rhythm with nonspecific ST changes laterally. His troponin was minimally elevated at 0.33. Patient remained pain-free in the emergency department. He was given aspirin and one additional nitroglycerin. I discussed the patient's presentation with Dr. Alcocer, , and Dr. Jaems. Dr. James was kind enough to admit patient. Patient was sent to cardiac stepdown. Dr. Rhoades was aware of the elevation of troponin. Initial ECG Impression Date: Jun 15, 2019 Initial ECG Impression Time: 07:48 Initial ECG Rate: 70 Initial ECG Rhythm: Normal Sinus Initial ECG Intervals: Normal Initial ECG Impression: Nonspecific Changes Departure Communication (Admissions) Time/Spoke to Admitting Phy: 07:54 Dr. James. Time/Spoke to Consulting Phy: 07:[address]rs[address] Alcocer and [place] Impression Primary Impression: Chest pain Qualified Codes: I25.9 - Chronic ischemic heart disease, unspecified Additional Impression: Elevated troponin Disposition: ADMITTED INPATIENT Condition: Improved Admissions Decision to Admit Reason: Admit from ER (General) Decision to Admit/Date: Jun 15, 2019 Time/Decision to Admit Time: 07:56 Departure-Patient Inst. Referrals: SIOBHAN JOSE MD (PCP) Primary Care Physician FREDRICK WEINSTEIN MD Jun 15, 2019 07:16
[2019-06-15 07:25] LABS: BASOPHILS # (AUTO) 0.1 10^3/uL (0.0-0.1); BASOPHILS % (AUTO) 1 % (0-10); EOSINOPHILS # (AUTO) 0.3 10^3/uL (0.0-0.3); EOSINOPHILS % (AUTO) 4 % (0-10); HEMATOCRIT 52 % (40-54); HEMOGLOBIN 16.6 G/DL (13.3-17.7); LYMPHOCYTES # (AUTO) 2.1 X 10^3 (1.0-4.0); LYMPHOCYTES % (AUTO) 26 % (12-44); MEAN CORPUSCULAR HEMOGLOBIN 28 PG (25-34); MEAN CORPUSCULAR HGB CONC 32 G/DL (32-36); MEAN CORPUSCULAR VOLUME 88 FL (80-99); MEAN PLATELET VOLUME 9.3 FL (7.4-10.4); MONOCYTES # (AUTO) 0.7 X 10^3 (0.0-1.0); MONOCYTES % (AUTO) 8 % (0-12); NEUTROPHILS % (AUTO) 62 % (42-75); PLATELET COUNT 284 10^3/uL (130-400); RED CELL DISTRIBUTION WIDTH 17.7 % (10.0-14.5); WHITE BLOOD COUNT 8.1 10^3/uL (4.3-11.0)
[2019-06-15 07:33] LABS: INR 0.8 (0.8-1.4); PROTHROMBIN TIME PATIENT 11.9 SEC (12.2-14.7)
[2019-06-15 07:38] LABS: ALANINE AMINOTRANSFERASE 17 U/L (0-55); ALBUMIN 4.1 GM/DL (3.2-4.5); ALKALINE PHOSPHATASE 106 U/L (40-136); BILIRUBIN,TOTAL 0.3 MG/DL (0.1-1.0); BUN/CREATININE RATIO 7; CALCIUM 9.8 MG/DL (8.5-10.1); CARBON DIOXIDE 31 MMOL/L (21-32); CHLORIDE 99 MMOL/L (98-107); CREATININE SERUM 0.82 MG/DL (0.60-1.30); GFR ESTIMATED > 60; GLUCOSE 132 MG/DL (70-105); POTASSIUM 4.1 MMOL/L (3.6-5.0); SODIUM 140 MMOL/L (135-145); TOTAL PROTEIN 7.4 GM/DL (6.4-8.2)
--- NOTE | 2019-06-15 08:11 | Diagnostic Imaging Report ---
INDICATION: Chest pain. Upright portable AP view of the chest is obtained with comparison made to study of 07/11/2018. FINDINGS: Heart size and pulmonary vascularity are within normal limits, and the lungs are clear, bilaterally. IMPRESSION: Unremarkable chest. Dictated by: Dictated on workstation # [id number]
--- NOTE | 2019-06-15 08:15 | Consultation-Cardiology ---
HPI-Cardiology Cardiology Consultation Date of Consultation 06/15/19 Date of Admission Time Seen by Provider: 08:10 Indication: chest pain HPI 48 years old gentleman with extensive coronary artery disease, peripheral arterial disease, woke up from sleep with chest pain described it as dull in nature in the retrosternal area radiating to both arms, associated with diaphoresis, shortness of breath, nausea and vomiting. EMS and given nitroglycerin, currently he is chest pain-free, still an active smoker, no similar episodes recently. No palpitation, syncope or near syncopal episode. Has been compliant with his medication Home Medications & Allergies Allergies: Coded Allergies: Penicillins (Unverified Allergy, Mild, 01/27/09) Home Medication List Reviewed: Yes [id number] Hx Patient Social History Marital Status: Employed/Student: employed Alcohol Use: Denies Use Recreational Drug Use: No Smoking Status: Current Everyday Smoker Type Used: Cigarettes 2nd Hand Smoke Exposure: No Recent Foreign Travel: No Recent Infectious Disease Expo: No Recent Hopitalizations: No Immunizations Up To Date Date of Pneumonia Vaccine: Jul 28, 2012 Date of Influenza Vaccine: Sep 25, 2018 Past Medical History Discussed below Family Medical History Significant Family History: Heart Disease, Vascular Disease Family History: Arthritis G8 BROTHER Blood clots 19 MOTHER ( of blood clot) Cardiac disorder 19 FATHER Diabetes mellitus G8 BROTHER FH: cancer paternal grandmother FHx: inflammatory bowel disease G8 BROTHER No Family History of: FH: sudden cardiac (SCD) Review of Systems-General Review of Systems Constitutional: see HPI; No fever; malaise EENTM: see HPI, no symptoms reported Respiratory: see HPI; No cough, No dyspnea on exertion, No hemoptysis, No orthopnea, No phlegm; short of breath; No stridor, No wheezing, No other Cardiovascular: see HPI, chest pain; No edema, No Hx of Intervention, No palpitations, No syncope, No vascular heart diseas, No other Gastrointestinal: see HPI, nausea, vomiting Genitourinary: no symptoms reported, see HPI Musculoskeletal: see HPI; No back pain; other (left AKA) Skin: see HPI; No change in color, No rash Psychiatric/Neurological: No Symptoms Reported Reviewed Test Results Reviewed Test Results Lab Laboratory Tests Test 06/15/19 07:00 Range/Units White Blood Count 8.1 4.3-11.0 10^3/uL Red Blood Count 5.91 H 4.35-5.85 10^6/uL Hemoglobin 16.6 13.3-17.7 G/DL Hematocrit 52 40-54 % Mean Corpuscular Volume 88 80-99 FL Mean Corpuscular Hemoglobin 28 25-34 PG Mean Corpuscular Hemoglobin Concent 32 32-36 G/DL Red Cell Distribution Width 17.7 H 10.0-14.5 % Platelet Count 284 130-400 10^3/uL Mean Platelet Volume 9.3 7.4-10.4 FL Neutrophils (%) (Auto) 62 42-75 % Lymphocytes (%) (Auto) 26 12-44 % Monocytes (%) (Auto) 8 0-12 % Eosinophils (%) (Auto) 4 0-10 % Basophils (%) (Auto) 1 0-10 % Neutrophils # (Auto) 5.0 1.8-7.8 X 10^3 Lymphocytes # (Auto) 2.1 1.0-4.0 X 10^3 Monocytes # (Auto) 0.7 0.0-1.0 X 10^3 Eosinophils # (Auto) 0.3 0.0-0.3 10^3/uL Basophils # (Auto) 0.1 0.0-0.1 10^3/uL Prothrombin Time 11.9 L 12.2-14.7 SEC INR Comment 0.8 0.8-1.4 Activated Partial Thromboplast Time 30 24-35 SEC Sodium Level 140 135-145 MMOL/L Potassium Level 4.1 3.6-5.0 MMOL/L Chloride Level 99 98-107 MMOL/L Carbon Dioxide Level 31 21-32 MMOL/L Anion Gap 10 5-14 MMOL/L Blood Urea Nitrogen 6 L 7-18 MG/DL Creatinine 0.82 0.60-1.30 MG/DL Estimat Glomerular Filtration Rate > 60 BUN/Creatinine Ratio 7 Glucose Level 132 H 70-105 MG/DL Calcium Level 9.8 8.5-10.1 MG/DL Corrected Calcium 9.7 8.5-10.1 MG/DL Magnesium Level 2.0 1.6-2.4 MG/DL Total Bilirubin 0.3 0.1-1.0 MG/DL Aspartate Amino Transf (AST/SGOT) 18 5-34 U/L Alanine Aminotransferase (ALT/SGPT) 17 0-55 U/L Alkaline Phosphatase 106 40-136 U/L Myoglobin 42.9 10.0-92.0 NG/ML Troponin I 0.033 H <0.028 NG/ML Total Protein 7.4 6.4-8.2 GM/DL Albumin 4.1 3.2-4.5 GM/DL Physical Exam Physical Exam Vital Signs Vital Signs - First Documented 06/15/19 07:00 Temp 36.0 Pulse 85 Resp 12 B/P (MAP) 142/108 (119) Pulse Ox 95 O2 Delivery Nasal Cannula O2 Flow Rate 3.00 Capillary Refill : Less Than 3 Seconds Height, Weight, BMI Height: 5'4.00" Weight: 190lbs. 1.6oz. [id number]; 38.00 BMI Method:Stated General Appearance: No Apparent Distress, WD/WN Eyes: Bilateral Eye Normal Inspection, Bilateral Eye PERRL, Bilateral Eye EOMI HEENT: Normal ENT Inspection Neck: Full Range of Motion, Normal Inspection, Non Tender, Supple, Carotid Bruit Respiratory: Chest Non Tender, Lungs Clear, Normal Breath Sounds, No Accessory Muscle Use, No Respiratory Distress Cardiovascular: Regular Rate, Rhythm, No Edema, No Gallop, No JVD, No Murmur, Normal Peripheral Pulses Gastrointestinal: Normal Bowel Sounds Back: Normal Inspection, No CVA Tenderness, No Vertebral Tenderness Extremity: Normal Capillary Refill, No Pedal Edema, Other (status post left [id number] amputation.) Neurologic/Psychiatric: Alert, Oriented x3, No Motor/Sensory Deficits Skin: Normal Color, Warm/Dry Lymphatic: No Adenopathy A/P-Cardiology Admission Diagnosis Non-ST elevation myocardial infarction Coronary artery disease Peripheral arterial disease Tobaccoism Assessment/Plan Unstable angina, non-ST elevation myocardial infarction, extensive cardiac history as described below, planning to proceed with cardiac catheterization possible PTCA Coronary artery disease, history of Promus drug-eluting stent placement using 2.512 mm in the circumflex artery in July [address] Alcocer after having myocardial infarction. Cardiac catheterization done July 2016 revealed patent stent to circumflex artery with otherwise nonobstructive disease, had non-ST elevation myocardial infarction on July 12, 2017 had total occlusion of the obtuse marginal branch successful deployment of resolute integrity 2.526 mm with good results. Total occlusion of the right coronary artery with failed attempt for intervention, referred to Dr. Warner, had intervention on the right coronary artery with 3 drug-eluting stent overlapping in the right coronary artery. Patient had non-ST elevation PR on July 12, 2018 and underwent cardiac catheterization with Dr. Duran revealing stent thrombosis and occlusion of the distal/mid RCA stents to date successfully with PTCA. Integrilin infusion 12 hour. He is maintained on Plavix and aspirin at this time. Peripheral arterial disease, Buerger's disease, status post left AKA, Had extensive disease, seen and followed by Dr. Marcelo History of congestive heart failure, improved, history of Severe left ventricular systolic dysfunction, improved with intervention and maximizing medical therapy, ejection fraction 45-50 percent. Continue to monitor History of deep venous thrombosis/pulmonary embolism, has been maintained on Coumadin in the past Tobaccoism, still an active smoker, educated in length about smoking cessation Hyperlipidemia, continue to monitor lipids History of gastroesophageal reflux disease. History of elevated liver enzymes, monitor liver enzymes Clinical Quality Measures AMI/AHF: ASA po Prior to arrival: Yes (81) JEFFERY DE SOUZA MD Jun 15, 2019 08:15
--- NOTE | 2019-06-15 08:16 | Cardiac Procedure Note-CS/ASA ---
Pre-Procedure Note Pre-Op Procedure Note H&P Reviewed The H&P was reviewed, patient examined and no changes noted. Date H&P Reviewed: Jun 15, 2019 Time H&P Reviewed: 08:16 Conscious Sedation Pre-Proced Time 08:16 ASA Score 3 For ASA 3 and 4: Consider anesthesia and medical clearance. Also, for patients with a history of failed moderate sedation consider anesthesia. Airway Lungs Heart ASA score ASA 1: a normal healthy patient ASA 2: a patient with a mild systemic disease (mid diabetes, controlled hypertension, obesity x ASA 3: a patient with a severe systemic disease that limits activity (angina, COPD, prior Myocardial infarction) ASA 4: a patient with an incapacitating disease that is a constant threat to life (CHF, renal failure) ASA 5: a moribund patient not expected to survive 24 hrs. (ruptured aneurysm) ASA 6: a declared brain- patient whose organs are being harvested. For emergent operations, add the letter E after the classification Mallampati Classification Grade 3 Sedation Plan Analgesia, Amnesia, Plan communicated to team members, Discussed options with patient/fam, Discussed risks with patient/fam The patient is an appropriate candidate to undergo the planned procedure, sedation, and anesthesia. The patient immediately re-assessed prior to indication. JEFFERY DE SOUZA MD Jun 15, 2019 08:16
[2019-06-15] MEDS ORDERED: LIDOCAINE 1% INJ 20 ML 20 ML VIAL ONE (08:35)
[2019-06-15] MEDS ORDERED: HEParin (CATH LAB) 2,000 ML IV ONE (08:36)
[2019-06-15] MEDS ORDERED: HEParin 1000 UNIT/ML (10ML VIAL) FOR BOLUS ONE (08:44)
[2019-06-15] MEDS ORDERED: VERAPAMIL 5 MG/2 ML (CALAN) VIAL IV ONE (08:44)
[2019-06-15] MEDS ORDERED: NITRO DRIP 25000 MCG/D5W 250 ML IV ONE (08:45)
[2019-06-15] MEDS ORDERED: fentaNYL INJECTION 100 MCG/2 ML AMP ONE (09:00)
[2019-06-15] MEDS ORDERED: MIDAZOLAM 5 MG/5 ML (VERSED) VIAL ONE (09:00)
[2019-06-15] MEDS ORDERED: PATIENT MAY USE OWN MEDS, ALL PO SCH (09:45)
--- NOTE | 2019-06-15 09:47 | Cardiac Cath Report ---
Cardiac Cath Report Physician (s)/Manager Community Outreach (s) Physician JEFFERY DE SOUZA MD Pre-Procedure Diagnosis Pre-Procedure Diagnosis: NSTEMI Post-Procedure Note Procedure Start Date: Jun 15, 2019 Name of Procedure: Left heart catheterization Left ventriculogram Aortic arch angiogram Findings/Procedure Note PROCEDURE NOTE: 48 years old gentleman with extensive history of coronary artery disease multiple intervention in the past, active smoker, admitted with unstable angina, responded to nitroglycerin, had mild elevation in troponin level. Due to his extensive history I decided to proceed with cardiac catheterization possible PTCA. After explaining the procedure to the patient, all pros and cons were explained, all questions were answered. The patient signed the consent and then he was placed on the cardiac catheterization laboratory. Groin was prepped SL fashion local anesthesia was used. Attempt to place the sheath in the right radial artery failed. Sheath placed in the right femoral artery. Petty right and left catheter were used to access the coronary system. Pigtail was used to access the left ventricular cavity. Left ventriculogram was done Aortic arch angiogram was done At the end of the procedure the sheath was removed. Closure device was used FINDINGS: Hemodynamics LV 105/12, end-diastolic pressure of 12 Aorta 109/67 mean of 84 ANATOMY: Left Main is free of obstructive disease Left Anterior Descending has mild disease nonobstructive disease Left Circumflex has a patent stent in the first obtuse marginal branch with mild disease nonobstructive disease Right Coronory Artery has multiple stents in the proximal and mid portion, dominant artery with patent stents and mild small vessel disease nonobstructive disease LV Gram was done showing prominent left ventricle with mild diffuse left ventricular hypokinesia estimated ejection fraction 45 percent Aorta evaluation done with aortic arch angiogram which showed normal aortic arch no dissection or aneurysm, normal origin of the innominate artery, left carotid artery and left subclavian artery CONCLUSION: 1. Patent stent in the obtuse marginal branch and multiple stents in the right coronary artery with small vessel disease nonobstructive disease 2. Prominent left ventricle with mild diffuse left ventricular hypokinesia estimated ejection fraction 45 percent, normal left ventricular end-diastolic pressure 3. Normal aortic arch and great vessels of the neck DISCUSSION AND RECOMMENDATION: Chest pain is probably due to small vessel disease, mild troponin leak, not considered myocardial infarction. Patent arteries. Chronic compensated left ventricular systolic dysfunction. Medical therapy is recommended, educated on smoking cessation Anesthesia Type: Conscious Sedation Estimated blood loss (mL): 25 ml Contrast Amount: 65 ml Total Radiation Dose: 413 mGy Post-Procedure Diagnosis Post-operative diagnosis: Unstable angina Coronary artery disease Congestive heart failure, chronic compensated left ventricular systolic dysfunction, ischemic cardiomyopathy Tobaccoism JEFFERY DE SOUZA MD Jun 15, 2019 9:47 am
[2019-06-15] MEDS ORDERED: VARE1TAB21 PO (09:50)
--- NOTE | 2019-06-15 09:50 | Discharge Inst-Post CATH ---
Discharge Inst-CATH/EP Problems Reviewed?: Yes Post Cardiac Cath/EP D/C Inst Follow Up/Plan Appointment with Dr. DE SOUZA's office in 2-4 weeks <b>CARDIAC CATH/EP PROCEDURE DISCHARGE INSTRUCTIONS</b> ACTIVITY * Go Home directly and rest. * Limit activity of the leg (or wrist if it was used) for 7 days including aerobics, swimming, jogging, bicycling, etc. * Restrict stair-climbing for 7 days if possible, if not, climb up with your non-cath leg, then bring together on the same step. * Avoid lifting, pushing, pulling or excessive movement of the affected extremity for 7 days. * Customary sexual activity may be resumed after 2 days-use caution not to use a position that strains or causes pain to the affected extremity. * No driving for 24 hours. * NO SMOKING. * Avoid straining for bowel movements for 7 days. * Gentle walking on level ground is allowed. * Returning to work will depend on the type of procedure and the results. Your doctor will discuss this with you. CALL YOUR DOCTOR FOR ANY OF THE FOLLOWING: *If bleeding from the puncture site occurs- Apply gentle pressure to site with clean cloth and call your doctor or EMS. * If a knot or lump forms under the skin, increases in size, or causes pain. * If bruising appears to be worsening or moving further down your leg instead of disappearing. * Temperature above 101 F. CARE OF YOUR GROIN INCISION; * Bruising or purple discoloration of the skin near the puncture site is common. * You may shower only, no bathtub bathing for 5 days. Be careful to avoid slipping as your leg may feel stiff. * If a closure device was used on your femoral artery, please see the attached guide regarding care of the device and your leg. * Leave dressing on FOR 24 hours. CARE OF YOUR WRIST INCISION; * Bruising or purple discoloration of the skin near the puncture site is common. * You may shower. * DO NOT submerge wrist. * Leave dressing on FOR 24 hours. JEFFERY DE SOUZA MD Jun 15, 2019 9:50 am
[2019-06-15] MEDS ORDERED: METO50TA15 PO (10:23)
--- NOTE | 2019-06-15 10:25 | NUR ---
SPOKE WITH THE PATIENTS ABOUT MEDICATIONS. SHE LISTED WHAT HE IS TAKING AND I CALLED [facility] TO VERIFY. [facility] FILLED: 05-25-19 METOPROLOL TARTRATE 50MG BID #60 05-13-19 PLAVIX 75MG DAILY #90 04-23-19 GABAPENTIN 600MG QID #120 04-22-19 IMDUR 30MG DAILY #90 04-22-19 ALLOPURINOL 100MG DAILY #90 01-16-19 LIPITOR 40MG HS #90 12-17-18 SOMA 350MG BID PRN #60 (ONLY TAKES 1 HS, HAD SOME SUPPLY LEFT ON HAND) OTC MEDS: FISH OIL BID PRILOSEC OTC 2 DAILY ASPIRIN 81MG HS SHE STATES HE IS SUPPOSED TO HAVE OXYCODONE FOR PAIN BUT DUE TO INSURANCE ISSUES HE HAS NOT BEEN ABLE TO GO TO THE TO GET A NEW SCRIPT AND HAS BEEN OUT FOR AWHILE. [facility] OXYCODONE 10MG WAS LAST FILLED #175 FOR 29 DAYS ON 02-26-19. I DID NOT INCLUDE IT ON THE MED REC AT THIS TIME. STATES HE NO LONGER TAKING THE GEMFIBROZIL OR LOSARTAN THAT WAS ON HIS CHART FROM PREVIOUS VISITS. I NOTED THE PAST DUE FILL DATES ON THE MED REC.
== END 2019-06-15 14:40 | disposition home or self-care (01) ==
LOC: EDUNIT# 06:55 → ER 06:57 → CSD 08:06 → UNDOADMOB 08:06 → CATH 08:11 → CSD 10:00 → CATH 14:40
PROVIDERS: ATTEND Internal Medicine Cardiovascular Disease
DX: I25.110 Atherosclerotic heart disease of native coronary artery with unstable angina pectoris (principal); I11.0 Hypertensive heart disease with heart failure; I50.22 Chronic systolic (congestive) heart failure; I26.99 Other pulmonary embolism without acute cor pulmonale; I82.409 Acute embolism and thrombosis of unspecified deep veins of unspecified lower extremity; M10.9 Gout, unspecified; R79.89 Other specified abnormal findings of blood chemistry; M54.9 Dorsalgia, unspecified; G89.29 Other chronic pain; E78.00 Pure hypercholesterolemia, unspecified; F17.210 Nicotine dependence, cigarettes, uncomplicated; Z88.0 Allergy status to penicillin; Z79.82 Long term (current) use of aspirin; Z79.01 Long term (current) use of anticoagulants; Z79.891 Long term (current) use of opiate analgesic; Z79.899 Other long term (current) drug therapy; Z95.1 Presence of aortocoronary bypass graft; Z86.74 Personal history of sudden cardiac arrest; Z82.49 Family history of ischemic heart disease and other diseases of the circulatory system; Z83.3 Family history of diabetes mellitus; Z82.61 Family history of arthritis
CPT/HCPCS: 36140; 36221; 36415; 71045; 80053; 83735; 83874; 84484; 85025; 85610; 85730; 93005; 93041; 93458

== ENCOUNTER → 2019-07-22 | Outpatient (CLI) | payer MEDICAID ==
[~2019-07-22] MED LIST changes: +METO50TA15 PO; +VARE1TAB21 PO
== END ==
LOC: CARD 11:28
PROVIDERS: ATTEND Physician Assistant
DX: I25.10 Atherosclerotic heart disease of native coronary artery without angina pectoris (principal); R07.89 Other chest pain; I82.409 Acute embolism and thrombosis of unspecified deep veins of unspecified lower extremity; I10 Essential (primary) hypertension; R06.00 Dyspnea, unspecified
CPT/HCPCS: 93306

== ENCOUNTER 2019-12-03 20:13 | Inpatient (IN) | payer MEDICAID ==
[~2019-12-03] VITALS: Ht 157.5 cm; Wt 92.8 kg
[~2019-12-03 20:13] MED LIST changes: -INDO25CA15 PO; +INDO25CA99 PO; -METO-387 PO; +MTP25TSR PO; -OMEP20CA13 PO; +OMEP20CA18 PO; -SACU1TAB PO; +SACU1TAB2 PO
--- OUTSIDE RECORDS SUMMARY | 2019-12-03 20:19 | XMS REPORT | Clinical Summary ---
Author Author [facility] Organization [facility] Address Unknown Phone Unavailable Care Team Providers Care Junior Project Coordinator Name Role Phone Jayro Duran MD 21 John Flowers MD PCP Source Comments Some departments are not documenting in the electronic medical record. If you d o not see the information that you expected, contact Release of Information in [facility] [employer] Information Management department at [phone] for further assistan ce in locating additional records.[facility] Allergies Comments Active Allergy Reactions Severity Noted Date Penicillins UNKNOWN Low 08/07/2017 Cellulitis type rash. Pneumococcal Vaccine RASH Medium 8 Medications End Date Status Medication Sig Dispensed Refills Start Date Active atorvastatin (LIPITOR) 40 Take 40 mg by 0 mg tablet mouth daily. Active carisoprodol(+) (SOMA) Take 350 mg 0 350 mg tablet by mouth at bedtime daily. Active gabapentin (NEURONTIN) Take 600 mg 0 600 mg tablet by mouth four times daily. Active gemfibrozil (LOPID) 600 Take 600 mg 0 mg tablet by mouth twice daily. Active [place]-3 Acid Ethyl Esters Take 1 g by 0 1 gram cap mouth three times daily. Active tiZANidine (ZANAFLEX) 4 Take 8 mg by 0 mg tabletIndications: mouth every 8 muscle spasm hours as needed. Indications: MUSCLE SPASM Active warfarin (COUMADIN) 5 mg Take 5 mg by 0 tabletIndications: mouth as thrombotic disorder directed. Take 7.5 mg by mouth on Sat and Sat. Take 5 mg by mouth on Saturday, , , Sat, and Sat. Take at bedtime. Indications: THROMBOTIC DISORDER Active omeprazole DR(+) Take 20 mg by 0 (PRILOSEC) 20 mg capsule mouth daily before breakfast. Active nitroglycerin (NITROSTAT) Place 0.4 mg 0 0.4 mg tablet under tongue every 5 minutes as needed for Chest Pain. Max of 3 tablets, call 911. Active clopiDOGrel (PLAVIX) 75 Take 75 mg by 0 mg tablet mouth daily. Active HYDROcodone/acetaminophen Take 1 tablet 0 (+) (NORCO) 10/325 mg by mouth tablet every 6 hours as needed for Pain Active aspirin 325 mg tablet Take 325 mg 0 by mouth daily. Take with food. Active LOSARTAN PO Take by 0 mouth. Active oxycodone(+) (ROXICODONE, Take 10 mg by 0 OXY-IR) 10 mg tablet mouth every 6 hours as needed for Pain Active NIFEdipine (PROCARDIA; Take 10 mg by 0 ADALAT) 10 mg capsule mouth three times daily. Active pregabalin (LYRICA) 100 Take one 90 capsule 3 /201 mg capsule capsule by 8 mouth three times daily. Take 1 cap qhs x5d, then 1 cap bid x5d, then 1 cap tid thereafter Active Problems Problem Noted Date CAD (coronary artery disease) 08/12/2017 Coronary artery disease involving [place] coronary art monster of [place] heart 08/07/2017 with angina pectoris Overview: 07/12/17 - NSTEMI at [facility] in [place], [place]. Successful PCI with a Resolute Integrity 2.5 x 26 mm s tent to the OM with Dr. Rhoades. Unsuccessful PCI to the RCA MANAGER LEASING. Pt ref erred to Dr. Warner for possible MANAGER LEASING procedure. 08/06/16 - Nuclear stress test ([facility]): No ischemia or arrhythmia on EKG. Diaphragmatic attenu ation with reversible ischemia involving the mid to apical inferior wa ll and inferolateral wall. Normal left ventricular size with mild hypokin esis at the lateral wall. EF 50%. Previous history of Promus stent placem ent to - date unknown. NSTEMI (non-ST elevated myocardial infarction) 08/07 Overview: 07/12/17 at [facility] in [place], [place]. Tobacco abuse 08/07/2017 Ischemic cardiomyopathy 08/07/2017 Overview: 07/12/17 - Echo ([facility]) : EF 30-35%. Left ventricular cavity size increased. Wall thickness normal. Regional wall motion abnormalities. Akinesis of the inferior myocardium. Ak inesis of the lateral myocardium. 07/12/17 - NSTEMI - EF 20%, severe left ventricular systolic function (per cath report). Life Vest applied for [facility] prevention of sudden cardiac . Mild mitral regurgitation 08/07/2017 Mild tricuspid regurgitation 08/07/2017 Protein S deficiency 08/07/2017 Overview: On warfarin. Family History Relation Name Status Comments Father Alive Mother Social History Date Tobacco Use Types Packs/Day Years Used Current Every Day Smoker Smokeless Tobacco: Never Used Drinks/Week oz/Week Comments Alcohol Use No Sex Assigned at Date Recorded Not on file Industry Job Start Date Occupation Not on file Not on file Not on file Travel End Travel History Travel Start No recent travel history available. 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 Temperature 17 06/05/2018 9:14 AM CDT Respiratory Rate 94% 06/05/2018 9:14 AM CDT Oxygen Saturation - - Inhaled Oxygen Concentration 87.1 kg (192 lb) 06/05/2018 9:14 AM CDT Weight 162.6 cm (5' 4") 06/05/2018 9:14 AM CDT Height 32.96 06/05/2018 9:14 AM CDT Body Mass Index Plan of Treatment Health Maintenance Due Date Last Done Comments DTAP/TDAP VACCINES (1 - 1983 Tdap) HIV SCREENING 1987 PHYSICAL (COMPREHENSIVE) 1990 EXAM INFLUENZA VACCINE 03/26/2020 Results Not on filefrom Last 3 Months Insurance Type Payer Benefit Subscriber ID Effective Phone Address Plan / Dates Group PPO BCBS [employer] xxxxxxxxxxxxxx [id number] BLUE OUT resent OF STATE [id number] Advance Directives Patient 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 needed
--- OUTSIDE RECORDS SUMMARY | 2019-12-03 20:21 | XMS REPORT ---
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 1872 49776 Problem Buerger disease I73.1 Active 5240 3007 Problem Tobacco use disorder F17.200 Active 552784502 Problem Obstructive sleep apnea syndrome G47.33 Active 31800762 ALLERGIES No Information ENCOUNTERS Encounter Location Date Diagnosis [place] [id number] [address] Jul, [place] [address] [address] Jul, Chronic pain G89.29 [place] [address] [address] Jul, [facility] [address] [address] Jul, Chronic pain G89.29 [facility] [address] [address] Jul, [place] [address] [address] Jul, [facility] [address] [address] Jul, Chronic pain G89.29 ; 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 ; Tobacco use disorder F17.200 and Thumb pain, left M79.645 [facility] [address] [address] May, [facility] [address] [address] May, Tobacco use disorder F17.200 [facility] [address] [address] May, Obstructive sleep apnea syndrome G47.33 ; Buerger disease I73.1 ; Tobacco use disorder F17.200 and Encounter for immunization Z23 [facility] [address] [address] May, Other 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 [facility] [address] [address] Feb, [facility] [address] [address] 14 Nov, 2014 [facility] [address] [address] Nov, [facility] [address] [address] Oct, [facility] [address] [address] 27 Oct, 2014 [facility] [address] [address] 16 Oct, 2014 [facility] [address] [address] 16 Oct, 2014 [facility] [address] [address] Oct, [facility] [address] [address] Oct, [facility] [address] [address] Aug, [facility] [address] [address] Aug, [facility] [address] [id number] [place] [address] 27 Apr, 2014 [facility] [address] [id number] [place] [address] 27 Apr, 2014 [facility] [address] [id number] [place] [address] Jan, [facility] [address] [id number] [place] [address] Jan, [facility] [address] [id number] [place] [address] Feb, [facility] [address] [id number] [place] [address] Feb, [facility] [address] [id number] [place] [address] Nov, [facility] [address] [id number] [place] [address] Nov, [facility] [address] [id number] [place] [address] Nov, [facility] [address] [id number] [place] [address] Jun, [facility] [address] [id number] [place] [address] May, [facility] [address] [id number] [place] [address] May, [facility] [address] [id number] [place] [address] Mar, [facility] [address] [id number] [place] [address] 15 Apr, 2010 [facility] [address] [id number] [place] [address] Mar, [facility] [address] [id number] [place] [address] 18 Oct, 2009 [facility] [address] [id number] [place] [address] Jun, IMMUNIZATIONS No Known Immunizations SOCIAL HISTORY Never Assessed REASON FOR VISIT PLAN OF CARE VITAL SIGNS Height 63 in 2014-01-30 Weight 210.6 lbs 2014-01-30 Temperature 97.8 degrees Fahrenheit 2014-01-30 Heart Rate 84 bpm 2014-01-30 Respiratory Rate 18 2014-01-30 Blood pressure systolic 130 mmHg 2014-01-30 Blood pressure diastolic 90 mmHg 2014-01-30 MEDICATIONS Unknown Medications RESULTS No Results PROCEDURES No Known procedures INSTRUCTIONS MEDICATIONS ADMINISTERED No Known Medications MEDICAL (GENERAL) HISTORY Type Description Date Medical History AL Medical History stent x 1 Medical History hypertension Medical History hyperlipidemia Medical History gout Medical History Buerger's disease Medical History left leg removed in august Medical History 3 heart attacks 5 stints Surgical History cardiac stent 2011 Surgical History left leg removed in august Hospitalization History surgery Hospitalization History pulmonary emboli Hospitalization History AL Hospitalization History via [facility] for heart attacks 2017 Hospitalization History for the stints 2017 Hospitalization History Had heart attack, heart caths. 07/14
--- OUTSIDE RECORDS SUMMARY | 2019-12-03 20:23 | XMS REPORT | Continuity of Care Document ---
Author Organization Unknown Address Unknown Phone Unavailable Allergies Active Description Code Type Severity Reaction Onset Reported/Identified Relationship to Patient Clinical Status Yes Penicillins [id number] Drug Aller gy Mild N/A 01/27/2009 Yes Penicillins Drug Allergy 07/16/2009 Yes Penicillins Drug Allergy N/A N/A 07/16/2009 Medications There is no data. 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 04/15/2006 Ot 415.19 07/16/2006 Ot V58.61 07/16/2006 [...] LIPOMA UNSPECIFIED SITE 05/26/2008 TRE SULTANA APRN 21 4.9 LIPOMA UNSPECIFIED SITE 06/03/2008 CALVIN SCHERER DO 729.5 PAIN IN LIMB 06/03/2008 CALVIN SCHERER DO 782.3 EDEMA 06/03/2008 UTE PUTNAM APRN 729.5 PAIN IN LIMB 06/03/2008 UTE PUTNAM APRN 782.3 EDEMA 06/03/2008 TRE SULTANA APRN 72 9.5 PAIN IN LIMB 06/03/2008 TRE SULTANA APRN 78 2.3 EDEMA 08/08/2008 Ot V58.61 08/08/2008 Ot V58.83 05/24/2009 Ot V12.51 05/24/2009 Ot V58.61 05/24/2009 Ot V58.83 07/16/2009 CALVIN SCHEERR DO K 487.8 INFLUENZA, WITH OTHER MANIFESTATIONS 07/16/2009 UTE PUTNAM APRN 487.8 INFLUENZA, WITH OTHER MANIFESTATIONS 07/16/2009 TRE SULTANA APRN 48 7.8 INFLUENZA, WITH OTHER MANIFESTATIONS 08/29/2009 Ot V12.51 HX- VENOUS THROMBOSIS EMBOLISM 08/29/2009 Ot V58.61 ANTICOAGULANTS,LT,CURRENT USE 08/29/2009 Ot V58.83 ENC OUNTER FOR THERAPEUTIC DRUG MONITORIN 10/17/2009 CALVIN SCHERER DO K 787.01 NAUSEA WITH VOMITING 10/17/2009 CALVIN SCHERER DO K 787.91 DIARRHEA 10/17/2009 UTE PUTNAM APRN R 787.01 NAUSEA WITH VOMITING 10/17/2009 UTE PUTNAM APRN 787.91 DIARRHEA 10/17/2009 TRE SULTANA APRN 787.01 NAUSEA WITH VOMITING 10/17/2009 TRE SULTANA APRN 787.91 DIARRHEA 11/10/2009 CALVIN SCHERER DO K 784.0 headache 11/10/2009 UTE PUTNAM APRN R 784.0 headache 11/10/2009 TRE SULTANA APRN 78 4.0 headache 12/16/2009 CALVIN SCHERER DO K 462 PHARYNGITIS ACUTE 12/16/2009 UTE PUTNAM APRN 4 62 PHARYNGITIS ACUTE 12/16/2009 TRE SULTANA APRN 46 2 PHARYNGITIS ACUTE 01/10/2010 Ot V12.51 HX- VENOUS THROMBOSIS EMBOLISM 01/10/2010 Ot V58.61 ANTICOAGULANTS,LT,CURRENT USE 01/10/2010 Ot V58.83 ENC OUNTER FOR THERAPEUTIC DRUG MONITORIN 04/18/2010 Ot V12.51 HX- VENOUS THROMBOSIS EMBOLISM 04/18/2010 Ot V58.61 ANTICOAGULANTS,LT,CURRENT USE 04/18/2010 Ot V58.83 ENC OUNTER FOR THERAPEUTIC DRUG MONITORIN 05/10/2010 CALVIN SCHERER DO 401.1 HYPERTENSION, BENIGN ESSENTIAL 05/10/2010 UTE PUTNAM APRN R 401.1 HYPERTENSION, BENIGN ESSENTIAL 05/10/2010 TRE SULTANA APRN 40 1.1 HYPERTENSION, BENIGN ESSENTIAL 05/16/2010 NIESHA BECK CALVIN K 272.2 HYPERLIPIDEMIA, MIXED 05/16/2010 NIESHA BECK CALVIN K 786.2 COUGH 05/16/2010 UTE PUTNAM APRN R 272.2 HYPERLIPIDEMIA, MIXED 05/16/2010 UTE PUTNAM APRN R 786.2 COUGH 05/16/2010 TRE SULTANA APRN 27 2.2 HYPERLIPIDEMIA, MIXED 05/16/2010 TRE SULTANA APRN 78 6.2 COUGH 07/19/2010 Ot V12.51 HX- VENOUS THROMBOSIS EMBOLISM 07/19/2010 Ot V58.61 ANTICOAGULANTS,LT,CURRENT USE 07/19/2010 Ot V58.83 ENC OUNTER FOR THERAPEUTIC DRUG MONITORIN 11/26/2010 Ot 786.2 COUGH 02/13/2011 Ot V12.51 HX- VENOUS THROMBOSIS EMBOLISM 02/13/2011 Ot V58.61 ANTICOAGULANTS,LT,CURRENT USE 02/13/2011 Ot V58.83 ENC OUNTER FOR THERAPEUTIC DRUG MONITORIN 04/06/2011 NIESHA BECK CALVIN K 724.2 BACK PAIN, LOWER 04/06/2011 UTE PUTNAM APRN R 724.2 BACK PAIN, LOWER 04/06/2011 TRE SULTANA APRN 72 4.2 BACK PAIN, LOWER 05/19/2011 Ot 724.2 LUMBAGO 05/19/2011 Ot V12.51 HX- VENOUS THROMBOSIS EMBOLISM 05/19/2011 Ot V58.61 ANTICOAGULANTS,LT,CURRENT USE 05/23/2011 Ot 034.0 STRE P SORE THROAT 05/23/2011 Ot 780.60 FEV ER, UNSPECIFIED 05/23/2011 Ot 787.03 VOM ITING ALONE 06/18/2011 Ot V12.51 HX- VENOUS THROMBOSIS EMBOLISM 06/18/2011 Ot V58.61 ANTICOAGULANTS,LT,CURRENT USE 06/18/2011 Ot V58.83 ENC OUNTER FOR THERAPEUTIC DRUG MONITORIN 10/21/2011 Ot V12.51 HX- VENOUS THROMBOSIS EMBOLISM 10/21/2011 Ot V58.61 ANTICOAGULANTS,LT,CURRENT USE 10/21/2011 Ot V58.83 ENC OUNTER FOR THERAPEUTIC DRUG MONITORIN 02/29/2012 Ot V12.51 HX- VENOUS THROMBOSIS EMBOLISM 02/29/2012 Ot V58.61 ANTICOAGULANTS,LT,CURRENT USE 02/29/2012 Ot V58.83 ENC OUNTER FOR THERAPEUTIC DRUG MONITORIN 04/30/2012 Ot 784.7 EPIS TAXIS 07/01/2012 Ot V12.51 HX- VENOUS THROMBOSIS EMBOLISM 07/01/2012 Ot V58.61 ANTICOAGULANTS,LT,CURRENT USE 07/01/2012 Ot V58.83 ENC OUNTER FOR THERAPEUTIC DRUG MONITORIN 07/31/2012 Ot 272.4 HYPE RLIPIDEMIA NEC/NOS 07/31/2012 Ot 305.1 TOBA LIQUID LOADER USE DISORDER 07/31/2012 Ot 401.9 HYPE RTENSION NOS 07/31/2012 Ot 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,INI 07/31/2012 Ot 414.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 07/31/2012 Ot 428.0 SANDRA ESTIVE HEART FAILURE NOS 07/31/2012 Ot 428.21 ACU TE SYSTOLIC HEART FAILURE 07/31/2012 Ot 530.81 ESO PHAGEAL REFLUX 07/31/2012 Ot V12.51 HX- VENOUS THROMBOSIS EMBOLISM 07/31/2012 Ot V12.55 PER ANA HISTORY OF PULMONARY EMBOLISM 07/31/2012 Ot V58.61 ANTICOAGULANTS,LT,CURRENT USE 09/24/2012 Ot 272.4 HYPE RLIPIDEMIA NEC/NOS 09/24/2012 Ot 300.00 ANX IETY STATE NOS 09/24/2012 Ot 401.9 HYPE RTENSION NOS 09/24/2012 Ot 412 OLD MY OCARDIAL INFARCT 09/24/2012 Ot 414.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 09/24/[address] PAIN NOS 09/24/2012 Ot V12.51 HX- VENOUS THROMBOSIS EMBOLISM 09/24/2012 Ot V15.81 HX OF PAST NONCOMPLIANCE 09/24/2012 Ot V45.82 PER CUTANEOUS TRANSLUM CORON ANGIOPLASTY 09/24/2012 Ot V58.61 ANTICOAGULANTS,LT,CURRENT USE 09/24/2012 Ot V58.63 ISRA G- TERM(CURRENT)USE OF ANTIPLATELET/AN 09/24/2012 Ot V58.66 ISRA G-TERM (CURRENT) USE OF ASPIRIN 09/24/2012 Ot V58.69 OTH MED,LT,CURRENT USE 11/02/2012 Ot V12.51 HX- VENOUS THROMBOSIS EMBOLISM 11/02/2012 Ot V58.61 ANTICOAGULANTS,LT,CURRENT USE 11/02/2012 Ot V58.83 ENC OUNTER FOR THERAPEUTIC DRUG MONITORIN 11/25/2012 CALVIN SCHERER DO K 461.9 SINUSITIS ACUTE 11/25/2012 UTE PUTNAM APRN 461.9 SINUSITIS ACUTE 11/25/2012 TRE SULTANA APRN 46 1.9 SINUSITIS ACUTE 12/03/2012 Ot 719.47 VANESSA NT PAIN-ANKLE 12/03/2012 Ot 728.71 NAINA NTAR FIBROMATOSIS 01/09/2013 MENDOZA CRAWFORD MD Ot 719.47 JOINT PAIN-ANKLE 01/09/2013 MENDOZA CRAWFORD MD Ot 845.00 SPRAIN OF ANKLE NOS 01/09/2013 MENDOZA CRAWFORD MD Ot E000.8 OTHER EXTERNAL CAUSE STATUS 01/09/2013 MENDOZA CRAWFORD MD Ot E849.0 ACCIDENT IN HOME 01/09/2013 MENDOZA CRAWFORD MD Ot E888.9 FALL NOS 02/09/2013 Ot V12.51 HX- VENOUS THROMBOSIS EMBOLISM 02/09/2013 Ot V58.61 ANTICOAGULANTS,LT,CURRENT USE 02/09/2013 Ot V58.83 ENC OUNTER FOR THERAPEUTIC DRUG MONITORIN 07/08/2013 JEFFERY DE SOUZA MD Ot V12. 51 HX-VENOUS THROMBOSIS EMBOLISM 07/08/2013 JEFFERY DE SOUZA MD Ot V58. 61 ANTICOAGULANTS,LT,CURRENT USE 07/08/2013 JEFFERY DE SOUZA MD Ot V58. 83 ENCOUNTER FOR THERAPEUTIC DRUG MONITORIN 12/20/2013 JEFFERY DE SOUZA MD Ot V12. 51 HX-VENOUS THROMBOSIS EMBOLISM 12/20/2013 JEFFERY DE SOUZA MD Ot V58. 61 ANTICOAGULANTS,LT,CURRENT USE 12/20/2013 JEFFERY DE SOUZA MD Ot V58. 83 ENCOUNTER FOR THERAPEUTIC DRUG MONITORIN 01/30/2014 UTE PUTNAM APRN R 4 62 ACUTE PHARYNGITIS 01/30/2014 UTE PUTNAM APRN 786.2 COUGH 01/30/2014 TRE SULTANA APRN 46 2 ACUTE PHARYNGITIS 01/30/2014 TRE SULTANA APRN 78 6.2 COUGH 2014 JEFFERY DE SOUZA MD Ot V12. 51 HX-VENOUS THROMBOSIS EMBOLISM 2014 JEFFERY DE SOUZA MD Ot V58. 61 ANTICOAGULANTS,LT,CURRENT USE 2014 JEFFERY DE SOUZA MD Ot V58. 83 ENCOUNTER FOR THERAPEUTIC DRUG MONITORIN 10/31/2014 Ot 274.01 ACU TE GOUTY ARTHROPATHY 10/31/2014 Ot 729.5 PAIN IN LIMB 10/31/2014 Ot V58.61 ANTICOAGULANTS,LT,CURRENT USE 10/31/2014 Ot V58.63 ISRA G- TERM(CURRENT)USE OF ANTIPLATELET/AN 11/03/2014 TRE SULTANA APRN 274.02 CHRONIC GOUTY ARTHROPATHY WITHOUT MENTION OF TOPHUS (T OPHI) 11/03/2014 TRE SULTANA APRN 719.47 PAIN IN JOINT INVOLVING ANKLE AND FOOT 11/19/2014 TRE SULTANA APRN 30 5.1 TOBACCO ABUSE 11/19/2014 TRE SULTANA APRN 414.00 [...] V58.61 11/25/2014 JEFFERY DE SOUZA MD Ot V12. 51 11/25/2014 JEFFERY DE SOUZA MD Ot V58. 61 11/25/2014 JEFFERY DE SOUZA MD Ot V58. 83 11/25/2014 Ot 272.4 11/25/2014 Ot 401.9 11/25/2014 Ot 414.01 11/25/2014 Ot 401.9 11/25/2014 Ot 414.01 11/25/2014 Ot 428.0 11/25/2014 Ot 719.40 11/25/2014 Ot 782.3 11/25/2014 Ot V58.61 11/25/2014 JEFFERY DE SOUZA MD Ot V12. 51 11/25/2014 JEFFERY DE SOUZA MD Ot V58. 61 11/25/2014 JEFFERY DE SOUZA MD Ot V58. 83 01/25/2015 JEFFERY DE SOUZA MD Ot V12. 51 HX-VENOUS THROMBOSIS EMBOLISM 01/25/2015 JEFFERY DE SOUZA MD Ot V58. 61 ANTICOAGULANTS,LT,CURRENT USE 01/25/2015 JEFFERY DE SOUZA MD Ot V58. 83 ENCOUNTER FOR THERAPEUTIC DRUG MONITORIN 03/17/2015 Ot 272.1 03/17/2015 Ot 414.00 03/17/2015 Ot 786.50 03/17/2015 Ot 397.0 03/17/2015 Ot 414.00 03/17/2015 Ot 424.0 03/17/2015 Ot 786.50 03/17/2015 Ot 272.4 03/17/2015 Ot 401.9 03/17/2015 Ot 414.01 03/17/2015 Ot 401.9 03/17/2015 Ot 414.01 03/17/2015 Ot 428.0 03/17/2015 Ot 719.40 03/17/2015 Ot 782.3 03/17/2015 Ot V58.61 03/17/2015 JEFFERY DE SOUZA MD Ot V12. 51 03/17/2015 JEFFERY DE SOUZA MD Ot V58. 61 03/17/2015 JEFFERY DE SOUZA MD Ot V58. 83 03/17/2015 Ot 272.4 03/17/2015 Ot 401.9 03/17/2015 [...] V58.61 04/01/2015 JEFFERY DE SOUZA MD Ot V12. 51 04/01/2015 JEFFERY DE SOUZA MD Ot V58. 61 04/01/2015 JEFFERY DE SOUZA MD Ot V58. 83 04/01/2015 JOHN MONDRAGON MD Ot 274 .9 GOUT NOS 04/01/2015 JOHN MONDRAGON MD Ot 729 .5 PAIN IN LIMB 04/01/2015 Ot 272.1 04/01/2015 Ot 414.00 04/01/2015 Ot 786.50 04/01/2015 Ot 397.0 04/01/2015 Ot 414.00 04/01/2015 Ot 424.0 04/01/2015 Ot 786.50 04/01/2015 Ot 272.4 04/01/2015 Ot 401.9 04/01/2015 Ot 414.01 04/01/2015 Ot 401.9 04/01/2015 Ot 414.01 04/01/2015 Ot 428.0 04/01/2015 Ot 719.40 04/01/2015 Ot 782.3 04/01/2015 Ot V58.61 04/01/2015 JEFFERY DE SOUZA MD Ot V12. 51 04/01/2015 JEFFERY DE SOUZA MD Ot V58. 61 04/01/2015 JEFFERY DE SOUZA MD Ot V58. 83 04/04/2015 JEFFERY DE SOUZA MD Ot V12. 51 04/04/2015 JEFFERY DE SOUZA MD Ot V58. 61 04/04/2015 JEFFERY DE SOUZA MD Ot V58. 83 04/06/2015 JEFFERY DE SOUZA MD Ot V12. 51 04/06/2015 JEFFERY DE SOUZA MD Ot V58. 61 04/06/2015 JEFFERY DE SOUZA MD Ot V58. 83 05/25/2015 JEFFERY DE SOUZA MD Ot V12. 51 HX-VENOUS THROMBOSIS EMBOLISM 05/25/2015 JEFFERY DE SOUZA MD Ot V58. 61 ANTICOAGULANTS,LT,CURRENT USE 05/25/2015 JEFFERY DE SOUZA MD Ot V58. 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 01 ANALYST MICROBIOLOGY LAB (CURRENT) USE OF ANTICOAGULANT 04/09/2016 JEFFERY DE SOUZA MD Ot I82.403 ACUTE EMBOLISM AND THOMBOS UNSP DEEP VEI 04/09/2016 JEFFERY DE SOUZA MD Ot Z79. 01 [facility] (CURRENT) USE OF ANTICOAGULANT 05/22/2016 JEFFERY DE SOUZA MD Ot I82.403 ACUTE EMBOLISM AND THOMBOS UNSP DEEP VEI 05/22/2016 JEFFERY DE SOUZA MD Ot Z79. 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 01 ANALYST MICROBIOLOGY LAB (CURRENT) USE OF ANTICOAGULANT 07/16/2016 JEFFERY DE SOUZA MD Ot I82.403 ACUTE EMBOLISM AND THOMBOS UNSP DEEP VEI 07/16/2016 JEFFERY DE SOUZA MD Ot Z79. 01 [facility] (CURRENT) USE OF ANTICOAGULANT 07/26/2016 Ot 414.00 COR ON ATHEROSCLER NOS TYPE VESSEL, NATIV 07/26/[address] PAIN NOS 07/26/2016 Ot 397.0 TRIC USPID VALVE DISEASE 07/26/2016 Ot 414.00 COR ON ATHEROSCLER NOS TYPE VESSEL, NATIV 07/26/2016 Ot 424.0 MITR AL VALVE DISORDER 07/26/[address] PAIN NOS 07/26/2016 Ot 272.4 HYPE RLIPIDEMIA NEC/NOS 07/26/2016 Ot 401.9 HYPE RTENSION NOS 07/26/2016 Ot 414.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 07/26/2016 Ot 401.9 HYPE RTENSION NOS 07/26/2016 Ot 414.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 07/26/2016 Ot 428.0 SANDRA ESTIVE HEART FAILURE NOS 07/26/2016 Ot 719.40 VANESSA NT PAIN-UNSPEC 07/26/2016 Ot 782.3 EDEMA 07/26/2016 Ot V58.61 ANTICOAGULANTS,LT,CURRENT USE 07/26/2016 JEFFERY DE SOUZA MD Ot I82.403 ACUTE EMBOLISM AND THOMBOS UNSP DEEP VEI 07/26/2016 JEFFERY DE SOUZA MD Ot Z79. 01 [facility] (CURRENT) USE OF ANTICOAGULANT 07/27/2016 JEFFERY DE SOUZA MD Ot I11. 0 HYPERTENSIVE HEART DISEASE WITH HEART FA 07/27/2016 JEFFERY DE SOUZA MD Ot I25. 10 ATHSCL HEART DISEASE OF [place] CORONARY 07/27/2016 JEFFERY DE SOUZA MD Ot I26. 99 OTHER PULMONARY EMBOLISM WITHOUT ACUTE C 07/27/2016 JEFFERY DE SOUZA MD Ot I50. 9 HEART FAILURE, UNSPECIFIED 07/27/2016 JEFFERY DE SOUZA MD Ot I82.409 ACUTE EMBOLISM AND THOMBOS UNSP DEEP VN 07/27/2016 JEFFERY DE SOUZA MD Ot R07. 9 CHEST PAIN, UNSPECIFIED 08/06/2016 Ot 414.00 COR ON ATHEROSCLER NOS TYPE VESSEL, NATIV 08/06/[address] PAIN NOS 08/06/2016 Ot 397.0 TRIC USPID VALVE DISEASE 08/06/2016 Ot 414.00 COR ON ATHEROSCLER NOS TYPE VESSEL, NATIV 08/06/2016 Ot 424.0 MITR AL VALVE DISORDER 08/06/[address] PAIN NOS 08/06/2016 Ot 272.4 HYPE RLIPIDEMIA NEC/NOS 08/06/2016 Ot 401.9 HYPE RTENSION NOS 08/06/2016 Ot 414.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 08/06/2016 Ot 401.9 HYPE RTENSION NOS 08/06/2016 Ot 414.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 08/06/2016 Ot 428.0 SANDRA ESTIVE HEART FAILURE NOS 08/06/2016 Ot 719.40 VANESSA NT PAIN-UNSPEC 08/06/2016 Ot 782.3 EDEMA 08/06/2016 Ot V58.61 ANTICOAGULANTS,LT,CURRENT USE 08/06/2016 JEFFERY DE SOUZA MD Ot I82.403 ACUTE EMBOLISM AND THOMBOS UNSP DEEP VEI 08/06/2016 JEFFERY DE SOUZA MD Ot Z79. 01 [facility] (CURRENT) USE OF ANTICOAGULANT 08/06/2016 JEFFERY DE SOUZA MD Ot I11. 0 HYPERTENSIVE HEART DISEASE WITH HEART FA 08/06/2016 JEFFERY DE SOUZA MD Ot I25. 10 ATHSCL HEART DISEASE OF [place] CORONARY 08/06/2016 JEFFERY DE SOUZA MD Ot I26. 99 OTHER PULMONARY EMBOLISM WITHOUT ACUTE C 08/06/2016 JEFFERY DE SOUZA MD Ot I50. 9 HEART FAILURE, UNSPECIFIED 08/06/2016 JEFFERY DE SOUZA MD Ot I82.409 ACUTE EMBOLISM AND THOMBOS UNSP DEEP VN 08/06/2016 JEFFERY DE SOUZA MD Ot R07. 9 CHEST PAIN, UNSPECIFIED 08/07/2016 JEFFERY DE SOUZA MD Ot I25. 10 ATHSCL HEART DISEASE OF [place] CORONARY 08/07/2016 JEFFERY DE SOUZA MD Ot I50. 9 HEART FAILURE, UNSPECIFIED 08/07/2016 JEFFERY DE SOUZA MD Ot R07. 9 CHEST PAIN, UNSPECIFIED 08/07/2016 JEFFERY DE SOUZA MD Ot I25. 10 ATHSCL HEART DISEASE OF [place] CORONARY 08/07/2016 JEFFERY DE SOUZA MD Ot I50. 9 HEART FAILURE, UNSPECIFIED 08/07/2016 JEFFERY DE SOUZA MD Ot R07. 9 CHEST PAIN, UNSPECIFIED 08/08/2016 Ot 414.00 COR ON ATHEROSCLER NOS TYPE VESSEL, NATIV 08/08/[address] PAIN NOS 08/08/2016 Ot 397.0 TRIC USPID VALVE DISEASE 08/08/2016 Ot 414.00 COR ON ATHEROSCLER NOS TYPE VESSEL, NATIV 08/08/2016 Ot 424.0 MITR AL VALVE DISORDER 08/08/[address] PAIN NOS 08/08/2016 Ot 272.4 HYPE RLIPIDEMIA NEC/NOS 08/08/2016 Ot 401.9 HYPE RTENSION NOS 08/08/2016 Ot 414.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 08/08/2016 Ot 401.9 HYPE RTENSION NOS 08/08/2016 Ot 414.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 08/08/2016 Ot 428.0 SANDRA ESTIVE HEART FAILURE NOS 08/08/2016 Ot 719.40 VANESSA NT PAIN-UNSPEC 08/08/2016 Ot 782.3 EDEMA 08/08/2016 Ot V58.61 ANTICOAGULANTS,LT,CURRENT USE 08/08/2016 JEFFERY DE SOUZA MD Ot I82.403 ACUTE EMBOLISM AND THOMBOS UNSP DEEP VEI 08/08/2016 JEFFERY DE SOUZA MD Ot Z79. 01 [facility] (CURRENT) USE OF ANTICOAGULANT 08/08/2016 JEFFERY DE SOUZA MD Ot I11. 0 HYPERTENSIVE HEART DISEASE WITH HEART FA 08/08/2016 JEFFERY DE SOUZA MD Ot I25. 10 ATHSCL HEART DISEASE OF [place] CORONARY 08/08/2016 JEFFERY DE SOUZA MD Ot I26. 99 OTHER PULMONARY EMBOLISM WITHOUT ACUTE C 08/08/2016 JEFFERY DE SOUZA MD Ot I50. 9 HEART FAILURE, UNSPECIFIED 08/08/2016 EJFFERY DE SOUZA MD Ot I82.409 ACUTE EMBOLISM AND THOMBOS UNSP DEEP VN 08/08/2016 JEFFERY DE SOUZA MD Ot R07. 9 CHEST PAIN, UNSPECIFIED 08/08/2016 JEFFERY DE SOUZA MD Ot I25. 10 ATHSCL HEART DISEASE OF [place] CORONARY 08/08/2016 JEFFERY DE SOUZA MD Ot I50. 9 HEART FAILURE, UNSPECIFIED 08/08/2016 JEFFERY DE SOUZA MD Ot R07. 9 CHEST PAIN, UNSPECIFIED 08/08/2016 JEFFERY DE SOUZA MD Ot I11. 0 HYPERTENSIVE HEART DISEASE WITH HEART FA 08/08/2016 JEFFERY DE SOUZA MD Ot I25. 10 ATHSCL HEART DISEASE OF [place] CORONARY 08/08/2016 JEFFERY DE SOUZA MD Ot I26. 99 OTHER PULMONARY EMBOLISM WITHOUT ACUTE C 08/08/2016 JEFFERY DE SOUZA MD Ot I50. 9 HEART FAILURE, UNSPECIFIED 08/08/2016 JEFFERY DE SOUZA MD Ot I82.409 ACUTE EMBOLISM AND THOMBOS UNSP DEEP VN 08/08/2016 JEFFERY DE SOUZA MD Ot R07. 9 CHEST PAIN, UNSPECIFIED 08/08/2016 JEFFERY DE SOUZA MD Ot E78. 5 HYPERLIPIDEMIA, UNSPECIFIED 08/08/2016 JEFFERY DE SOUZA MD Ot F17.210 NICOTINE DEPENDENCE, CIGARETTES, UNCOMPL 08/08/2016 JEFFERY DE SOUZA MD Ot I10 ESSENTIAL (PRIMARY) HYPERTENSION 08/08/2016 JEFFERY DE SOUZA MD Ot I25. 10 ATHSCL HEART DISEASE OF [place] CORONARY 08/08/2016 JEFFERY DE SOUZA MD Ot R07. 89 OTHER CHEST PAIN 08/08/2016 JEFFERY DE SOUZA MD Ot R94. 39 ABNORMAL RESULT OF OTHER CARDIOVASCULAR 08/08/2016 JEFFERY DE SOUZA MD Ot Z79. 01 [facility] (CURRENT) USE OF ANTICOAGULANT 08/08/2016 JEFFERY DE SOUZA MD Ot Z79.899 OTHER [facility] (CURRENT) DRUG THERAPY 08/08/2016 JEFFERY DE SOUZA MD Ot Z86.718 PERSONAL HISTORY OF OTHER VENOUS THROMBO 08/08/2016 JEFFERY DE SOUZA MD Ot Z95. 5 PRESENCE OF CORONARY ANGIOPLASTY IMPLANT 08/12/2016 JEFFERY DE SOUZA MD Ot I25. 10 ATHSCL HEART DISEASE OF [place] CORONARY 08/12/2016 JEFFERY DE SOUZA MD Ot I50. 9 HEART FAILURE, UNSPECIFIED 08/12/2016 JEFFERY DE SOUZA MD Ot R07. 9 CHEST PAIN, UNSPECIFIED 08/22/2016 JEFFERY DE SOUZA MD Ot I25. 10 ATHSCL HEART DISEASE OF [place] CORONARY 08/22/2016 JEFFERY DE SOUZA MD Ot I50. 9 HEART FAILURE, UNSPECIFIED 08/22/2016 JEFFERY DE SOUZA MD Ot R07. 9 CHEST PAIN, UNSPECIFIED 08/30/2016 JEFFERY DE SOUZA MD Ot I82.403 ACUTE EMBOLISM AND THOMBOS UNSP DEEP VEI 08/30/2016 JEFFERY DE SOUZA MD Ot Z79. 01 ANALYST MICROBIOLOGY LAB (CURRENT) USE OF ANTICOAGULANT 08/31/2016 JEFFERY DE SOUZA MD Ot I82.403 ACUTE EMBOLISM AND THOMBOS UNSP DEEP VEI 08/31/2016 JEFFERY DE SOUZA MD Ot Z79. 01 [facility] (CURRENT) USE OF ANTICOAGULANT 09/13/2016 JEFFERY DE SOUZA MD Ot I82.403 ACUTE EMBOLISM AND THOMBOS UNSP DEEP VEI 09/13/2016 JEFFERY DE SOUZA MD Ot Z79. 01 ANALYST MICROBIOLOGY LAB (CURRENT) USE OF ANTICOAGULANT 09/13/2016 JEFFERY DE SOUZA MD Ot I82.403 ACUTE EMBOLISM AND THOMBOS UNSP DEEP VEI 09/13/2016 JEFFERY DE SOUZA MD Ot Z79. 01 [facility] (CURRENT) USE OF ANTICOAGULANT 09/14/2016 JEFFERY DE SOUZA MD Ot I82.403 ACUTE EMBOLISM AND THOMBOS UNSP DEEP VEI 09/14/2016 JEFFERY DE SOUZA MD Ot Z79. 01 ANALYST MICROBIOLOGY LAB (CURRENT) USE OF ANTICOAGULANT 10/10/2016 JEFFERY DE SOUZA MD Ot I82.403 ACUTE EMBOLISM AND THOMBOS UNSP DEEP VEI 10/10/2016 JEFFERY DE SOUZA MD Ot Z79. 01 [facility] (CURRENT) USE OF ANTICOAGULANT 11/09/2016 JEFFERY DE SOUZA MD Ot I82.403 ACUTE EMBOLISM AND THOMBOS UNSP DEEP VEI 11/09/2016 JEFFERY DE SOUZA MD Ot Z79. 01 [facility] (CURRENT) USE OF ANTICOAGULANT 12/11/2016 JEFFERY DE SOUZA MD Ot I82.403 ACUTE EMBOLISM AND THOMBOS UNSP DEEP VEI 12/11/2016 JEFFERY ED SOUZA MD Ot Z79. 01 [facility] (CURRENT) USE OF ANTICOAGULANT 12/12/2016 JEFFERY DE SOUZA MD Ot I82.403 ACUTE EMBOLISM AND THOMBOS UNSP DEEP VEI 12/12/2016 JEFFERY DE SOUZA MD Ot Z79. 01 ANALYST MICROBIOLOGY LAB (CURRENT) USE OF ANTICOAGULANT 01/09/2017 Ot 414.00 COR ON ATHEROSCLER NOS TYPE VESSEL, NATIV 01/09/[address] PAIN NOS 01/09/2017 Ot 397.0 TRIC USPID VALVE DISEASE 01/09/2017 Ot 414.00 COR ON ATHEROSCLER NOS TYPE VESSEL, NATIV 01/09/2017 Ot 424.0 MITR AL VALVE DISORDER 01/09/[address] PAIN NOS 01/09/2017 Ot 272.4 HYPE RLIPIDEMIA NEC/NOS 01/09/2017 Ot 401.9 HYPE RTENSION NOS 01/09/2017 Ot 414.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 01/09/2017 Ot 401.9 HYPE RTENSION NOS 01/09/2017 Ot 414.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 01/09/2017 Ot 428.0 SANDRA ESTIVE HEART FAILURE NOS 01/09/2017 Ot 719.40 VANESSA NT PAIN-UNSPEC 01/09/2017 Ot 782.3 EDEMA 01/09/2017 Ot V58.61 ANTICOAGULANTS,LT,CURRENT USE 01/09/2017 JEFFERY DE SOUZA MD Ot I11. 0 HYPERTENSIVE HEART DISEASE WITH HEART FA 01/09/2017 JEFFERY DE SOUZA MD Ot I25. 10 ATHSCL HEART DISEASE OF [place] CORONARY 01/09/2017 JEFFERY DE SOUZA MD Ot I26. 99 OTHER PULMONARY EMBOLISM WITHOUT ACUTE C 01/09/2017 JEFFERY DE SOUZA MD Ot I50. 9 HEART FAILURE, UNSPECIFIED 01/09/2017 JEFFERY DE SOUZA MD Ot I82.409 ACUTE EMBOLISM AND THOMBOS UNSP DEEP VN 01/09/2017 JEFFERY DE SOUZA MD Ot R07. 9 CHEST PAIN, UNSPECIFIED 01/09/2017 JEFFERY DE SOUZA MD Ot I25. 10 ATHSCL HEART DISEASE OF [place] CORONARY 01/09/2017 JEFFERY DE SOZUA MD Ot I50. 9 HEART FAILURE, UNSPECIFIED 01/09/2017 JEFFERY DE SOUZA MD Ot R07. 9 CHEST PAIN, UNSPECIFIED 01/09/2017 ROCHELLE OLIVER Ot F17.210 NICOTINE DEPENDENCE, CIGARETTES, UNCOMPL 01/09/2017 ROCHELLE OLIVER Ot R10.10 UPPER ABDOMINAL PAIN, UNSPECIFIED 01/09/2017 ROCHELLE OLIVER Ot R10.13 EPIGASTRIC PAIN 01/09/2017 ROCHELLE OLIVER Ot Z79.01 [facility] (CURRENT) USE OF ANTICOAGULANT 01/09/2017 ROCHELLE OLIVER Ot Z79.82 ANALYST MICROBIOLOGY LAB (CURRENT) USE OF ASPIRIN 01/09/2017 MARK HAZEL ROCHELLE Sarah Ot Z79.899 OTHER [facility] (CURRENT) DRUG THERAPY 01/09/2017 MARK HAZEL ROCHELLE Sarah Ot Z95.5 PRESENCE OF CORONARY ANGIOPLASTY IMPLANT 01/11/2017 MARK HAZEL ROCHELLE Sarah Ot F17.210 NICOTINE DEPENDENCE, CIGARETTES, UNCOMPL 01/11/2017 MARK HAZEL ROCHELLE Sarah Ot R10.10 UPPER ABDOMINAL PAIN, UNSPECIFIED 01/11/2017 MARK HAZEL ROCHELLE Sarah Ot R10.13 EPIGASTRIC PAIN 01/11/2017 MARK HAZEL ROCHELLE Sarah Ot Z79.01 [facility] (CURRENT) USE OF ANTICOAGULANT 01/11/2017 MARK HAZEL ROCHELLE Sarah Ot Z79.82 [facility] (CURRENT) USE OF ASPIRIN 01/11/2017 MARK HAZEL ROCHELLE Sarah Ot Z79.899 OTHER [facility] (CURRENT) DRUG THERAPY 01/11/2017 MARK HAZEL ROCHELLE Sarah Ot Z95.5 PRESENCE OF CORONARY ANGIOPLASTY IMPLANT 01/29/2017 JEFFERY DE SOUZA MD Ot I82.403 ACUTE EMBOLISM AND THOMBOS UNSP DEEP VEI 01/29/2017 JEFFERY DE SOUZA MD Ot Z79. 01 ANALYST MICROBIOLOGY LAB (CURRENT) USE OF ANTICOAGULANT 01/31/2017 Ot 414.00 COR ON ATHEROSCLER NOS TYPE VESSEL, NATIV 01/31/[address] PAIN NOS 01/31/2017 Ot 397.0 TRIC USPID VALVE DISEASE 01/31/2017 Ot 414.00 COR ON ATHEROSCLER NOS TYPE VESSEL, NATIV 01/31/2017 Ot 424.0 MITR AL VALVE DISORDER 01/31/[address] PAIN NOS 01/31/2017 Ot 272.4 HYPE RLIPIDEMIA NEC/NOS 01/31/2017 Ot 401.9 HYPE RTENSION NOS 01/31/2017 Ot 414.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 01/31/2017 Ot 401.9 HYPE RTENSION NOS 01/31/2017 Ot 414.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 01/31/2017 Ot 428.0 SANDRA ESTIVE HEART FAILURE NOS 01/31/2017 Ot 719.40 VANESSA NT PAIN-UNSPEC 01/31/2017 Ot 782.3 EDEMA 01/31/2017 Ot V58.61 ANTICOAGULANTS,LT,CURRENT USE 01/31/2017 JEFFERY DE SOUZA MD Ot I11. 0 HYPERTENSIVE HEART DISEASE WITH HEART FA 01/31/2017 JEFFERY DE SOUZA MD Ot I25. 10 ATHSCL HEART DISEASE OF [place] CORONARY 01/31/2017 JEFFERY DE SOUZA MD Ot I26. 99 OTHER PULMONARY EMBOLISM WITHOUT ACUTE C 01/31/2017 JEFFERY DE SOUZA MD Ot I50. 9 HEART FAILURE, UNSPECIFIED 01/31/2017 JEFFERY DE SOUZA MD Ot R07. 9 CHEST PAIN, UNSPECIFIED 01/31/2017 JEFFERY DE SOUZA MD Ot I25. 10 ATHSCL HEART DISEASE OF [place] CORONARY 01/31/2017 JEFFERY DE SOUZA MD Ot I50. 9 HEART FAILURE, UNSPECIFIED 01/31/2017 JEFFERY DE SOUZA MD Ot R07. 9 CHEST PAIN, UNSPECIFIED 03/08/2017 JEFFERY DE SOUZA MD Ot I82.403 ACUTE EMBOLISM AND THOMBOS UNSP DEEP VEI 03/08/2017 JEFFERY DE SOUZA MD Ot Z79. 01 ANALYST MICROBIOLOGY LAB (CURRENT) USE OF ANTICOAGULANT 04/02/2017 JEFFERY DE SOUZA MD Ot I82.403 ACUTE EMBOLISM AND THOMBOS UNSP DEEP VEI 04/02/2017 JEFFERY DE SOUZA MD Ot Z79. 01 ANALYST MICROBIOLOGY LAB (CURRENT) USE OF ANTICOAGULANT 04/03/2017 JEFFERY DE SOUZA MD Ot I82.403 ACUTE EMBOLISM AND THOMBOS UNSP DEEP VEI 04/03/2017 JEFFERY DE SOUZA MD Ot Z79. 01 ANALYST MICROBIOLOGY LAB (CURRENT) USE OF ANTICOAGULANT 04/10/2017 JEFFERY DE SOUZA MD Ot I26. 99 OTHER PULMONARY EMBOLISM WITHOUT ACUTE C 04/10/2017 JEFFERY DE SOUZA MD Ot Z51. 81 ENCOUNTER FOR THERAPEUTIC DRUG LEVEL [facility] 04/13/2017 ROCHELLE OLIVER Ot F17.200 NICOTINE DEPENDENCE, UNSPECIFIED, UNCOMP 04/13/2017 ROCHELLE OLIVER Ot I25.2 OLD MYOCARDIAL INFARCTION 04/13/2017 ROCHELLE OLIVER Ot K21.9 GASTRO-ESOPHAGEAL REFLUX DISEASE WITHOUT 04/13/2017 ROCHELLE OLIVER Ot L50.9 URTICARIA, UNSPECIFIED 04/13/2017 ROCHELLE OLIVER Ot M79.601 PAIN IN RIGHT ARM 04/13/2017 ROCHELLE OLIVER Ot Z79.01 ANALYST MICROBIOLOGY LAB (CURRENT) USE OF ANTICOAGULANT 04/13/2017 ROCHELLE OLIVER Ot Z79.82 [facility] (CURRENT) USE OF ASPIRIN 04/13/2017 ROCHELLE OLIVER Ot Z82.49 FAMILY HX OF ISCHEM HEART DIS AND OTH DI 04/13/2017 ROCHELLE OLIVER Ot Z95.5 PRESENCE OF CORONARY ANGIOPLASTY IMPLANT 04/30/2017 JEFFERY DE SOUZA MD Ot I26. 99 OTHER PULMONARY EMBOLISM WITHOUT ACUTE C 04/30/2017 JEFFERY DE SOUZA MD Ot Z51. 81 ENCOUNTER FOR THERAPEUTIC DRUG LEVEL MON 05/09/2017 JEFFERY DE SOUZA MD Ot I26. 99 OTHER PULMONARY EMBOLISM WITHOUT ACUTE C 05/09/2017 JEFFERY DE SOUZA MD Ot Z51. 81 ENCOUNTER FOR THERAPEUTIC DRUG LEVEL Sat05/10/2017 JEFFERY DE SOUZA MD Ot I26. 99 OTHER PULMONARY EMBOLISM WITHOUT ACUTE C 05/10/2017 JEFFERY DE SOUZA MD Ot Z51. 81 ENCOUNTER FOR THERAPEUTIC DRUG LEVEL Sat05/10/2017 JEFFERY DE SOUZA MD Ot Z79.899 OTHER ANALYST MICROBIOLOGY LAB (CURRENT) DRUG THERAPY 05/25/2017 JEFFERY DE SOUZA MD Ot I26. 99 OTHER PULMONARY EMBOLISM WITHOUT ACUTE C 05/25/2017 JEFFERY DE SOUZA MD Ot Z51. 81 ENCOUNTER FOR THERAPEUTIC DRUG LEVEL Sat05/25/2017 JEFFERY DE SOUZA MD Ot Z79.899 OTHER [facility] (CURRENT) DRUG THERAPY 05/31/2017 JEFFERY DE SOUZA MD Ot I26. 99 OTHER PULMONARY EMBOLISM WITHOUT ACUTE C 05/31/2017 JEFFERY DE SOUZA MD Ot Z51. 81 ENCOUNTER FOR THERAPEUTIC DRUG LEVEL MON 05/31/2017 JEFFERY DE SOUZA MD Ot Z79.899 OTHER [facility] (CURRENT) DRUG THERAPY 07/11/2017 SONIYA JAMES DO Ot D68.59 OTHER PRIMARY THROMBOPHILIA 07/11/2017 SONIYA JAMES DO Ot E78.1 PURE HYPERGLYCERIDEMIA 07/11/2017 SONIYA JAMES DO Ot E78.5 HYPERLIPIDEMIA, UNSPECIFIED 07/11/2017 SONIYA JAMES DO Ot F17.21 0 NICOTINE DEPENDENCE, CIGARETTES, UNCOMPL 07/11/2017 JAMES DO, SONIYA Ot I10 ESSENTIAL (PRIMARY) HYPERTENSION 07/11/2017 ERIKA BECK SONIYA Ot I21.4 NON-ST ELEVATION (NSTEMI) MYOCARDIAL INF 07/11/2017 ERIKA BECK SONIYA Ot I25.10 ATHSCL HEART DISEASE OF [place] CORONARY 07/11/2017 ERIKA BECK SONIYA Ot 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 07/11/2017 ERIKA BECK SONIYA Ot I50.20 UNSPECIFIED SYSTOLIC (CONGESTIVE) HEART 07/11/2017 ERIKA BECK SONIYA Ot K21.9 GASTRO-ESOPHAGEAL REFLUX DISEASE WITHOUT 07/11/2017 ERIKA BECK SONIYA Ot R06.2 WHEEZING 07/11/2017 ERIKA BECK SONIYA Ot Z79.01 [facility] (CURRENT) USE OF ANTICOAGULANT 07/11/2017 MAGALYS JAMES DOI Ot Z82.49 FAMILY HX OF ISCHEM HEART DIS AND OTH DI 07/11/2017 MAGALYS JAMES DOI Ot Z95.5 PRESENCE OF CORONARY ANGIOPLASTY IMPLANT 07/15/2017 MAGALYS JAMES DOI Ot D68.59 OTHER PRIMARY THROMBOPHILIA 07/15/2017 ERIKA BECK SONIYA Ot E78.1 PURE HYPERGLYCERIDEMIA 07/15/2017 ERIKA BECK SONIYA Ot E78.5 HYPERLIPIDEMIA, UNSPECIFIED 07/15/2017 ERIKA BECK SONIYA Ot F17.21 0 NICOTINE DEPENDENCE, CIGARETTES, UNCOMPL 07/15/2017 ERIKA BECK SONIYA Ot I10 ESSENTIAL (PRIMARY) HYPERTENSION 07/15/2017 ERIKA BECK SONIYA Ot I21.4 NON-ST ELEVATION (NSTEMI) MYOCARDIAL INF 07/15/2017 ERIKA BECK SONIYA Ot I25.10 ATHSCL HEART DISEASE OF [place] CORONARY 07/15/2017 ERIKA BECK SONIYA Ot 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 07/15/2017 ERIKA BECK SONIYA Ot I50.20 UNSPECIFIED SYSTOLIC (CONGESTIVE) HEART 07/15/2017 ERIKA BECK SONIYA Ot K21.9 GASTRO-ESOPHAGEAL REFLUX DISEASE WITHOUT 07/15/2017 ERIKA BECK SONIYA Ot R06.2 WHEEZING 07/15/2017 ERIKA BECK SONIYA Ot Z79.01 ANALYST MICROBIOLOGY LAB (CURRENT) USE OF ANTICOAGULANT 07/15/2017 ERIKA BECK SONIYA Ot Z82.49 FAMILY HX OF ISCHEM HEART DIS AND OTH DI 07/15/2017 SONIYA JAMES DO Ot Z95.5 PRESENCE OF CORONARY ANGIOPLASTY IMPLANT 07/17/2017 SONIYA JAMES DO Ot D68.59 OTHER PRIMARY THROMBOPHILIA 07/17/2017 SONIYA JAMES DO Ot E78.1 PURE HYPERGLYCERIDEMIA 07/17/2017 SONIYA JAMES DO Ot E78.5 HYPERLIPIDEMIA, UNSPECIFIED 07/17/2017 SONIYA JAMES DO Ot F17.21 0 NICOTINE DEPENDENCE, CIGARETTES, UNCOMPL 07/17/2017 SONIYA JAMES DO Ot I10 ESSENTIAL (PRIMARY) HYPERTENSION 07/17/2017 SONIYA JAMES DO Ot I21.4 NON-ST ELEVATION (NSTEMI) MYOCARDIAL INF 07/17/2017 SONIYA JAMES DO Ot I25.10 ATHSCL HEART DISEASE OF [place] CORONARY 07/17/2017 SONIYA JAMES DO Ot 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 07/17/2017 SONIYA JAMES DO Ot I50.20 UNSPECIFIED SYSTOLIC (CONGESTIVE) HEART 07/17/2017 SONIYA JAMES DO Ot K21.9 GASTRO-ESOPHAGEAL REFLUX DISEASE WITHOUT 07/17/2017 SONIYA JAMES DO Ot R06.2 WHEEZING 07/17/2017 SONIYA JAMES DO Ot Z79.01 ANALYST MICROBIOLOGY LAB (CURRENT) USE OF ANTICOAGULANT 07/17/2017 SONIYA JAMES DO Ot Z82.49 FAMILY HX OF I[place] HEART DIS AND OTH DI 07/17/2017 SONIYA JAMES DO Ot Z95.5 PRESENCE OF CORONARY ANGIOPLASTY IMPLANT 08/02/2017 Ot 414.00 COR ON ATHEROSCLER NOS TYPE VESSEL, NATIV 08/02/[address] PAIN NOS 08/02/2017 Ot 397.0 TRIC USPID VALVE DISEASE 08/02/2017 Ot 414.00 COR ON ATHEROSCLER NOS TYPE VESSEL, NATIV 08/02/2017 Ot 424.0 MITR AL VALVE DISORDER 08/02/[address] PAIN NOS 08/02/2017 Ot 272.4 HYPE RLIPIDEMIA NEC/NOS 08/02/2017 Ot 401.9 HYPE RTENSION NOS 08/02/2017 Ot 414.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 08/02/2017 Ot 401.9 HYPE RTENSION NOS 08/02/2017 Ot 414.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 08/02/2017 Ot 428.0 SANDRA ESTIVE HEART FAILURE NOS 08/02/2017 Ot 719.40 VANESSA NT PAIN-UNSPEC 08/02/2017 Ot 782.3 EDEMA 08/02/2017 Ot V58.61 ANTICOAGULANTS,LT,CURRENT USE 08/02/2017 JEFFERY DE SOUZA MD Ot I11. 0 HYPERTENSIVE HEART DISEASE WITH HEART FA 08/02/2017 JEFFERY DE SOUZA MD Ot I25. 10 ATHSCL HEART DISEASE OF [place] CORONARY 08/02/2017 JEFFERY DE SOUZA MD Ot I26. 99 OTHER PULMONARY EMBOLISM WITHOUT ACUTE C 08/02/2017 JEFFERY DE SOUZA MD Ot I50. 9 HEART FAILURE, UNSPECIFIED 08/02/2017 JEFFERY DE SOUZA MD Ot R07. 9 CHEST PAIN, UNSPECIFIED 08/02/2017 JEFFERY DE SOUZA MD Ot I25. 10 ATHSCL HEART DISEASE OF [place] CORONARY 08/02/2017 JEFFERY DE SOUZA MD Ot I50. 9 HEART FAILURE, UNSPECIFIED 08/02/2017 JEFFERY DE SOUZA MD Ot R07. 9 CHEST PAIN, UNSPECIFIED 08/02/2017 JEFFERY DE SOUZA MD Ot I82.403 ACUTE EMBOLISM AND THOMBOS UNSP DEEP VEI 08/02/2017 JEFFERY DE SOUZA MD Ot Z79. 01 ANALYST MICROBIOLOGY LAB (CURRENT) USE OF ANTICOAGULANT 08/02/2017 JEFFERY DE SOUZA MD Ot I26. 99 OTHER PULMONARY EMBOLISM WITHOUT ACUTE C 08/02/2017 JEFFERY DE SOUZA MD Ot Z51. 81 ENCOUNTER FOR THERAPEUTIC DRUG LEVEL MON 08/02/2017 JEFFERY DE SOUZA MD Ot I26. 99 OTHER PULMONARY EMBOLISM WITHOUT ACUTE C 08/02/2017 JEFFERY DE SOUZA MD Ot Z51. 81 ENCOUNTER FOR THERAPEUTIC DRUG LEVEL MON 08/02/2017 JEFFERY DE SOUZA MD Ot Z79.899 OTHER ANALYST MICROBIOLOGY LAB (CURRENT) DRUG THERAPY 08/02/2017 ROCHELLE OLIVER Ot E78.00 PURE HYPERCHOLESTEROLEMIA, UNSPECIFIED 08/02/2017 ROCHELLE OLIVER Ot I 10 ESSENTIAL (PRIMARY) HYPERTENSION 08/02/2017 ROCHELLE OLIVER Ot I25.2 OLD MYOCARDIAL INFARCTION 08/02/2017 ROCHELLE OLIVER Ot K21.9 GASTRO-ESOPHAGEAL REFLUX DISEASE WITHOUT 08/02/2017 ROCHELLE OLIVER Ot R22.2 LOCALIZED SWELLING, MASS AND LUMP, TRUNK 08/02/2017 ROCHELLE OLIVER Ot S20.212A CONTUSION OF LEFT FRONT WALL OF THORAX, 08/02/2017 ROCHELLE OLIVER Ot X58.XXXA EXPOSURE TO OTHER SPECIFIED FACTORS, INI 08/02/2017 ROCHELLE OLIVER Ot Z79.01 [facility] (CURRENT) USE OF ANTICOAGULANT 08/02/2017 ROCHELLE OLIVER Ot Z79.82 [facility] (CURRENT) USE OF ASPIRIN 08/02/2017 ROCHELLE OLIVER Ot Z82.49 FAMILY HX OF ISCHEM HEART DIS AND OTH DI 08/02/2017 ROCHELLE OLIVER Ot Z95.5 PRESENCE OF CORONARY ANGIOPLASTY IMPLANT 08/06/2017 JEFFERY DE SOUZA MD Ot I26. 99 OTHER PULMONARY EMBOLISM WITHOUT ACUTE C 08/06/2017 JEFFERY DE SOUZA MD Ot Z79. 01 ANALYST MICROBIOLOGY LAB (CURRENT) USE OF ANTICOAGULANT 08/06/2017 JEFFERY DE SOUZA MD Ot I50. 9 HEART FAILURE, UNSPECIFIED 08/09/2017 Ot 414.00 COR ON ATHEROSCLER NOS TYPE VESSEL, NATIV 08/09/[address] PAIN NOS 08/09/2017 Ot 397.0 TRIC USPID VALVE DISEASE 08/09/2017 Ot 414.00 COR ON ATHEROSCLER NOS TYPE VESSEL, NATIV 08/09/2017 Ot 424.0 MITR AL VALVE DISORDER 08/09/[address] PAIN NOS 08/09/2017 Ot 272.4 HYPE RLIPIDEMIA NEC/NOS 08/09/2017 Ot 401.9 HYPE RTENSION NOS 08/09/2017 Ot 414.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 08/09/2017 Ot 401.9 HYPE RTENSION NOS 08/09/2017 Ot 414.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 08/09/2017 Ot 428.0 SANDRA ESTIVE HEART FAILURE NOS 08/09/2017 Ot 719.40 VANESSA NT PAIN-UNSPEC 08/09/2017 Ot 782.3 EDEMA 08/09/2017 Ot V58.61 ANTICOAGULANTS,LT,CURRENT USE 08/09/2017 JEFFERY DE SOUZA MD Ot I11. 0 HYPERTENSIVE HEART DISEASE WITH HEART FA 08/09/2017 JEFFERY DE SOUZA MD Ot I25. 10 ATHSCL HEART DISEASE OF [place] CORONARY 08/09/2017 JEFFERY DE SOUZA MD Ot I26. 99 OTHER PULMONARY EMBOLISM WITHOUT ACUTE C 08/09/2017 JEFFERY DE SOUZA MD Ot I50. 9 HEART FAILURE, UNSPECIFIED 08/09/2017 JEFFERY DE SOUZA MD Ot R07. 9 CHEST PAIN, UNSPECIFIED 08/09/2017 JEFFERY DE SOUZA MD Ot I25. 10 ATHSCL HEART DISEASE OF [place] CORONARY 08/09/2017 JEFFERY DE SOUZA MD Ot I50. 9 HEART FAILURE, UNSPECIFIED 08/09/2017 JEFFERY DE SOUZA MD Ot R07. 9 CHEST PAIN, UNSPECIFIED 08/09/2017 JEFFERY DE SOUZA MD Ot I82.403 ACUTE EMBOLISM AND THOMBOS UNSP DEEP VEI 08/09/2017 JEFFERY DE SOUZA MD Ot Z79. 01 [facility] (CURRENT) USE OF ANTICOAGULANT 08/09/2017 JEFFERY DE SOUZA MD Ot I26. 99 OTHER PULMONARY EMBOLISM WITHOUT ACUTE C 08/09/2017 JEFFERY DE SOUZA MD Ot Z51. 81 ENCOUNTER FOR THERAPEUTIC DRUG LEVEL MON 08/09/2017 JEFFERY DE SOUZA MD Ot I26. 99 OTHER PULMONARY EMBOLISM WITHOUT ACUTE C 08/09/2017 JEFFERY DE SUOZA MD Ot Z79. 01 [facility] (CURRENT) USE OF ANTICOAGULANT 08/09/2017 JEFFERY DE SOUZA MD Ot I50. 9 HEART FAILURE, UNSPECIFIED 08/14/2017 JEFFERY DE SOUZA MD Ot I26. 99 OTHER PULMONARY EMBOLISM WITHOUT ACUTE C 08/14/2017 JEFFERY DE SOUZA MD Ot Z79. 01 [facility] (CURRENT) USE OF ANTICOAGULANT 08/22/2017 FREDRICK MCCAULEY MD Ot I25.11 9 ATHSCL HEART DISEASE OF [place] COR ART W 08/22/2017 FREDRICK MCCAULEY MD Ot Z01.81 2 ENCOUNTER FOR PREPROCEDURAL LABORATORY E 08/24/2017 JEFFERY DE SOUZA MD Ot I26. 99 OTHER PULMONARY EMBOLISM WITHOUT ACUTE C 08/24/2017 JEFFERY DE SOUZA MD Ot Z79. 01 [facility] (CURRENT) USE OF ANTICOAGULANT 08/30/2017 JEFFERY DE SOUZA MD Ot I26. 99 OTHER PULMONARY EMBOLISM WITHOUT ACUTE C 08/30/2017 JEFFERY DE SOUZA MD Ot Z79. 01 [facility] (CURRENT) USE OF ANTICOAGULANT 09/02/2017 JEFFERY DE SOUZA MD Ot I26. 99 OTHER PULMONARY EMBOLISM WITHOUT ACUTE C 09/02/2017 JEFFERY DE SOUZA MD Ot Z79. 01 [facility] (CURRENT) USE OF ANTICOAGULANT 09/06/2017 JEFFERY DE SOUZA MD Ot I10 ESSENTIAL (PRIMARY) HYPERTENSION 09/06/2017 JEFFERY DE SOUZA MD Ot I25. 10 ATHSCL HEART DISEASE OF [place] CORONARY 09/06/2017 JEFFERY DE SOUZA MD Ot R06. 00 DYSPNEA, UNSPECIFIED 09/06/2017 JEFFERY DE SOUZA MD Ot R07. 89 OTHER CHEST PAIN 09/12/2017 JEFFERY DE SOUZA MD Ot I50. 9 HEART FAILURE, UNSPECIFIED 09/15/2017 VIANEY SWEET APRN Ot E78.00 PURE HYPERCHOLESTEROLEMIA, UNSPECIFIED 09/15/2017 VIANEY SWEET APRN Ot I10 ESSENTIAL (PRIMARY) HYPERTENSION 09/15/2017 VIANEY SWEET APRN Ot I20 .9 ANGINA PECTORIS, UNSPECIFIED 09/15/2017 VIANEY SWEET APRN Ot I25 .2 OLD MYOCARDIAL INFARCTION 09/15/2017 VIANEY SWEET APRN Ot K21 .9 GASTRO-ESOPHAGEAL REFLUX DISEASE WITHOUT 09/15/2017 VIANEY SWEET APRN Ot M10 .9 GOUT, UNSPECIFIED 09/15/2017 VIANEY SWEET APRN Ot M79.672 PAIN IN LEFT FOOT 09/15/2017 VIANEY SWEET APRN Ot Z79.01 [facility] (CURRENT) USE OF ANTICOAGULANT 09/15/2017 VIANEY SWEET APRN Ot Z79.02 [facility] (CURRENT) USE OF ANTITHROMBOTI 09/15/2017 VIANEY SWEET APRN Ot Z79.82 [facility] (CURRENT) USE OF ASPIRIN 09/15/2017 VIANEY SWEET APRN Ot Z82.49 FAMILY HX OF ISCHEM HEART DIS AND OTH DI 09/15/2017 VIANEY SWEET APRN Ot Z86.718 PERSONAL HISTORY OF OTHER VENOUS THROMBO 09/15/2017 VIANEY SWEET APRN Ot Z95 .5 PRESENCE OF CORONARY ANGIOPLASTY IMPLANT 09/17/2017 VIANEY SWEET APRN Ot E78.00 PURE HYPERCHOLESTEROLEMIA, UNSPECIFIED 09/17/2017 VIANEY SWEET APRN Ot I10 ESSENTIAL (PRIMARY) HYPERTENSION 09/17/2017 VIANEY SWEET APRN Ot I20 .9 ANGINA PECTORIS, UNSPECIFIED 09/17/2017 VIANEY SWEET APRN Ot I25 .2 OLD MYOCARDIAL INFARCTION 09/17/2017 VIANEY SWEET APRN Ot K21 .9 GASTRO-ESOPHAGEAL REFLUX DISEASE WITHOUT 09/17/2017 VIANEY SWEET APRN Ot M10 .9 GOUT, UNSPECIFIED 09/17/2017 VIANEY SWEET APRN Ot M79.672 PAIN IN LEFT FOOT 09/17/2017 VIANEY SWEET APRN Ot Z79.01 [facility] (CURRENT) USE OF ANTICOAGULANT 09/17/2017 VIANEY SWEET APRN Ot Z79.02 ANALYST MICROBIOLOGY LAB (CURRENT) USE OF ANTITHROMBOTI 09/17/2017 VIANEY SWEET APRN Ot Z79.82 ANALYST MICROBIOLOGY LAB (CURRENT) USE OF ASPIRIN 09/17/2017 VIANEY SWEET APRN Ot Z82.49 FAMILY HX OF I[place]HE[place] HEART DIS AND OTH DI 09/17/2017 VIANEY SWEET APRN Ot Z86.718 PERSONAL HISTORY OF OTHER VENOUS THROMBO 09/17/2017 VIANEY SWEET APRN Ot Z95 .5 PRESENCE OF CORONARY ANGIOPLASTY IMPLANT 09/18/2017 JEFFERY DE SOUZA MD Ot I10 ESSENTIAL (PRIMARY) HYPERTENSION 09/18/2017 JEFFERY DE SOUZA MD Ot I25. 10 ATHSCL HEART DISEASE OF [place] CORONARY 09/18/2017 JEFFERY DE SOUZA MD Ot R06. 00 DYSPNEA, UNSPECIFIED 09/18/2017 JEFFERY DE SOUZA MD Ot R07. 89 OTHER CHEST PAIN 09/25/2017 FREDRICK TRENT MD Ot E78. 00 PURE HYPERCHOLESTEROLEMIA, UNSPECIFIED 09/25/2017 FREDRICK TRENT MD Ot E78. 5 HYPERLIPIDEMIA, UNSPECIFIED 09/25/2017 FREDRICK TRENT MD Ot I11. 0 HYPERTENSIVE HEART DISEASE WITH HEART FA 09/25/2017 FREDRICK TRENT MD Ot I25. 10 ATHSCL HEART DISEASE OF [place] CORONARY 09/25/2017 FREDRICK TRENT MD Ot I25. 2 OLD MYOCARDIAL INFARCTION 09/25/2017 FREDRICK TRENT MD Ot I50. 9 HEART FAILURE, UNSPECIFIED 09/25/2017 FREDRICK TRENT MD Ot K21. 9 GASTRO-ESOPHAGEAL REFLUX DISEASE WITHOUT 09/25/2017 FREDRICK TRENT MD Ot L03.116 CELLULITIS OF LEFT LOWER LIMB 09/25/2017 FREDRICK TRENT MD Ot M10. 9 GOUT, UNSPECIFIED 09/25/2017 FREDRICK TRENT MD Ot Z86.718 PERSONAL HISTORY OF OTHER VENOUS THROMBO 09/25/2017 FREDRICK TRENT MD Ot Z87.891 PERSONAL HISTORY OF NICOTINE DEPENDENCE 09/25/2017 FREDRICK TRENT MD Ot Z95. 5 PRESENCE OF CORONARY ANGIOPLASTY IMPLANT 10/04/2017 NOLVIA ENRIQUE, JEFFERY Gutierrez Ot M79.605 PAIN IN LEFT LEG 10/04/2017 Ot 414.00 COR ON ATHEROSCLER NOS TYPE VESSEL, NATIV 10/04/[address] PAIN NOS 10/04/2017 Ot 397.0 TRIC USPID VALVE DISEASE 10/04/2017 Ot 414.00 COR ON ATHEROSCLER NOS TYPE VESSEL, NATIV 10/04/2017 Ot 424.0 MITR AL VALVE DISORDER 10/04/[address] PAIN NOS 10/04/2017 Ot 272.4 HYPE RLIPIDEMIA NEC/NOS 10/04/2017 Ot 401.9 HYPE RTENSION NOS 10/04/2017 Ot 414.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 10/04/2017 Ot 401.9 HYPE RTENSION NOS 10/04/2017 Ot 414.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 10/04/2017 Ot 428.0 SANDRA ESTIVE HEART FAILURE NOS 10/04/2017 Ot 719.40 VANESSA NT PAIN-UNSPEC 10/04/2017 Ot 782.3 EDEMA 10/04/2017 Ot V58.61 ANTICOAGULANTS,LT,CURRENT USE 10/04/2017 JEFFERY DE SOUZA MD Ot I11. 0 HYPERTENSIVE HEART DISEASE WITH HEART FA 10/04/2017 JEFFERY DE SOUZA MD Ot I25. 10 ATHSCL HEART DISEASE OF [place] CORONARY 10/04/2017 JEFFERY DE SOUZA MD Ot I26. 99 OTHER PULMONARY EMBOLISM WITHOUT ACUTE C 10/04/2017 JEFFERY DE SOUZA MD Ot I50. 9 HEART FAILURE, UNSPECIFIED 10/04/2017 JEFFERY DE SOUZA MD Ot R07. 9 CHEST PAIN, UNSPECIFIED 10/04/2017 JEFFERY DE SOUZA MD Ot I25. 10 ATHSCL HEART DISEASE OF [place] CORONARY 10/04/2017 JEFFERY DE SOUZA MD Ot I50. 9 HEART FAILURE, UNSPECIFIED 10/04/2017 JEFFERY ED SOUZA MD Ot R07. 9 CHEST PAIN, UNSPECIFIED 10/04/2017 JEFFERY DE SOUZA MD Ot I82.403 ACUTE EMBOLISM AND THOMBOS UNSP DEEP VEI 10/04/2017 JEFFERY DE SOUZA MD Ot Z79. 01 [facility] (CURRENT) USE OF ANTICOAGULANT 10/04/2017 JEFFERY DE SOUZA MD Ot I26. 99 OTHER PULMONARY EMBOLISM WITHOUT ACUTE C 10/04/2017 JEFFERY DE SOUZA MD Ot Z51. 81 ENCOUNTER FOR THERAPEUTIC DRUG LEVEL MON 10/04/2017 JEFFERY DE SOUZA MD Ot I50. 9 HEART FAILURE, UNSPECIFIED 10/04/2017 JEFFERY DE SOUZA MD Ot I10 ESSENTIAL (PRIMARY) HYPERTENSION 10/04/2017 JEFFERY DE SOUZA MD Ot I25. 10 ATHSCL HEART DISEASE OF [place] CORONARY 10/04/2017 JEFFERY DE SOUZA MD Ot R06. 00 DYSPNEA, UNSPECIFIED 10/04/2017 JEFFERY DE SOUZA MD Ot R07. 89 OTHER CHEST PAIN 10/04/2017 FREDRICK MCCAULEY MD Ot I25.11 9 ATHSCL HEART DISEASE OF [place] COR ART W 10/04/2017 FREDRICK MCCAULEY MD Ot Z01.81 2 ENCOUNTER FOR PREPROCEDURAL LABORATORY E 10/04/2017 JEFFERY DE SOUZA MD Ot I26. 99 OTHER PULMONARY EMBOLISM WITHOUT ACUTE C 10/04/2017 JEFFERY DE SOUZA MD Ot Z79. 01 [facility] (CURRENT) USE OF ANTICOAGULANT 10/04/2017 JEFFERY DE SOUZA MD Ot M79.605 PAIN IN LEFT LEG 10/09/2017 JEFFERY DE SOUZA MD Ot I26. 99 OTHER PULMONARY EMBOLISM WITHOUT ACUTE C 10/09/2017 JEFFERY DE SOUZA MD Ot Z79. 01 [facility] (CURRENT) USE OF ANTICOAGULANT 10/09/2017 JEFFERY DE SOUZA MD Ot M79.605 PAIN IN LEFT LEG 10/18/2017 JEFFERY DE SOUZA MD Ot F17.200 NICOTINE DEPENDENCE, UNSPECIFIED, UNCOMP 10/18/2017 JEFFERY DE SOUZA MD Ot I10 ESSENTIAL (PRIMARY) HYPERTENSION 10/18/2017 JEFFERY DE SOUZA MD Ot I25. 10 ATHSCL HEART DISEASE OF [place] CORONARY 10/18/2017 JEFFERY DE SOUZA MD Ot I26. 99 OTHER PULMONARY EMBOLISM WITHOUT ACUTE C 10/18/2017 JEFFERY DE SOUZA MD Ot I70. 0 ATHEROSCLEROSIS OF [place] 10/18/2017 JEFFERY DE SOUZA MD Ot I70. 8 ATHEROSCLEROSIS OF OTHER ARTERIES 10/18/2017 JEFFERY DE SOUZA MD Ot I82.409 ACUTE EMBOLISM AND THOMBOS UNSP DEEP VN 10/18/2017 JEFFERY DE SOUZA MD Ot M89.572 OSTEOLYSIS, LEFT ANKLE AND FOOT 10/18/2017 JEFFERY DE SOUZA MD Ot R06. 00 DYSPNEA, UNSPECIFIED 10/18/2017 CÉSAR KILGORE MD Ot G63 POLYNEUROPATHY IN DISEASES CLASSIFIED EL 10/18/2017 CÉSAR KILGORE MD Ot I75.022 ATHEROEMBOLISM OF LEFT LOWER EXTREMITY 10/18/2017 CÉSAR KILGORE MD Ot M79.662 PAIN IN LEFT LOWER LEG 10/24/2017 JEFFERY DE SOUZA MD Ot F17.200 NICOTINE DEPENDENCE, UNSPECIFIED, UNCOMP 10/24/2017 JEFFERY DE SOUZA MD Ot I10 ESSENTIAL (PRIMARY) HYPERTENSION 10/24/2017 JEFFERY DE SOUZA MD Ot I25. 10 ATHSCL HEART DISEASE OF [place] CORONARY 10/24/2017 JEFFERY DE SOUZA MD Ot I26. 99 OTHER PULMONARY EMBOLISM WITHOUT ACUTE C 10/24/2017 JEFFERY DE SOUZA MD Ot I70. 0 ATHEROSCLEROSIS OF [place] 10/24/2017 JEFFERY DE SOUZA MD Ot I70. 8 ATHEROSCLEROSIS OF OTHER ARTERIES 10/24/2017 JEFFERY DE SOUZA MD Ot I82.409 ACUTE EMBOLISM AND THOMBOS UNSP DEEP VN 10/24/2017 JEFFERY DE SOUZA MD Ot M89.572 OSTEOLYSIS, LEFT ANKLE AND FOOT 10/24/2017 JEFFERY DE SOUZA MD Ot R06. 00 DYSPNEA, UNSPECIFIED 10/25/2017 JEFFERY DE SOUZA MD Ot I10 ESSENTIAL (PRIMARY) HYPERTENSION 10/25/2017 JEFFERY DE SOUZA MD Ot I21. 3 ST ELEVATION (STEMI) MYOCARDIAL INFARCTI 10/25/2017 JEFFERY DE SOUZA MD Ot I25. 10 ATHSCL HEART DISEASE OF [place] CORONARY 10/25/2017 JEFFERY DE SOUZA MD Ot K27. 9 PEPTIC ULC, SITE UNSP, UNSP AC OR CHR 10/25/2017 JEFFERY DE SOUZA MD Ot R06. 02 SHORTNESS OF BREATH 10/25/2017 JEFFERY DE SOUZA MD Ot R07. 89 OTHER CHEST PAIN 10/28/2017 YUMIKO ENRIQUE, VIOLA Gutierrez Ot M79.89 OTHER SPECIFIED SOFT TISSUE DISORDERS 10/31/2017 JEFFERY DE SOUZA MD Ot I50. 9 HEART FAILURE, UNSPECIFIED 11/01/2017 JEFFERY DE SOUZA MD Ot F17.200 NICOTINE DEPENDENCE, UNSPECIFIED, UNCOMP 11/01/2017 JEFFERY DE SOUZA MD Ot I10 ESSENTIAL (PRIMARY) HYPERTENSION 11/01/2017 JEFFERY DE SOUZA MD Ot I25. 10 ATHSCL HEART DISEASE OF [place] CORONARY 11/01/2017 JEFFERY DE SOUZA MD Ot I26. 99 OTHER PULMONARY EMBOLISM WITHOUT ACUTE C 11/01/2017 JEFFERY DE SOUZA MD Ot I70. 0 ATHEROSCLEROSIS OF [place] 11/01/2017 JEFFERY DE SOUZA MD Ot I70. 8 ATHEROSCLEROSIS OF OTHER ARTERIES 11/01/2017 JEFFERY DE SOUZA MD Ot I82.409 ACUTE EMBOLISM AND THOMBOS UNSP DEEP VN 11/01/2017 JEFFERY DE SOUZA MD Ot M89.572 OSTEOLYSIS, LEFT ANKLE AND FOOT 11/01/2017 JEFFERY DE SOUZA MD Ot R06. 00 DYSPNEA, UNSPECIFIED 11/06/2017 JEFFERY DE SOUZA MD Ot I50. 9 HEART FAILURE, UNSPECIFIED 11/08/2017 CÉSAR KILGORE MD Ot G63 POLYNEUROPATHY IN DISEASES CLASSIFIED EL 11/08/2017 CÉSAR KILGORE MD Ot I75.022 ATHEROEMBOLISM OF LEFT LOWER EXTREMITY 11/08/2017 CÉSAR KILGORE MD Ot M79.662 PAIN IN LEFT LOWER LEG 11/08/2017 YUMIKO ENRIQUE, VIOLA Gutierrez Ot M79.89 OTHER SPECIFIED SOFT TISSUE DISORDERS 11/08/2017 JEFFERY DE SOUZA MD Ot I10 ESSENTIAL (PRIMARY) HYPERTENSION 11/08/2017 JEFFERY DE SOUZA MD Ot I21. 3 ST ELEVATION (STEMI) MYOCARDIAL INFARCTI 11/08/2017 JEFFERY DE SOUZA MD Ot I25. 10 ATHSCL HEART DISEASE OF [place] CORONARY 11/08/2017 JEFFERY DE SOUZA MD Ot K27. 9 PEPTIC ULC, SITE UNSP, UNSP AC OR CHR 11/08/2017 JEFFERY DE SOUZA MD Ot R06. 02 SHORTNESS OF BREATH 11/08/2017 JEFFERY DE SOUZA MD Ot R07. 89 OTHER CHEST PAIN 11/20/2017 JEFFERY DE SOUZA MD Ot F17.200 NICOTINE DEPENDENCE, UNSPECIFIED, UNCOMP 11/20/2017 JEFFERY DE SOUZA MD Ot I10 ESSENTIAL (PRIMARY) HYPERTENSION 11/20/2017 JEFFERY DE SOUZA MD Ot I25. 10 ATHSCL HEART DISEASE OF [place] CORONARY 11/20/2017 JEFFERY DE SOUZA MD Ot I26. 99 OTHER PULMONARY EMBOLISM WITHOUT ACUTE C 11/20/2017 JEFFERY DE SOUZA MD Ot I70. 0 ATHEROSCLEROSIS OF [place] 11/20/2017 JEFFERY DE SOUZA MD Ot I70. 8 ATHEROSCLEROSIS OF OTHER ARTERIES 11/20/2017 JEFFERY DE SOUZA MD Ot I82.402 ACUTE EMBOLISM AND THOMBOS UNSP DEEP VEI 11/20/2017 JEFFERY DE SOUZA MD Ot M89.572 OSTEOLYSIS, LEFT ANKLE AND FOOT 11/20/2017 JEFFERY DE SOUZA MD Ot R06. 00 DYSPNEA, UNSPECIFIED 11/27/2017 JEFFERY DE SOUZA MD Ot F17.200 NICOTINE DEPENDENCE, UNSPECIFIED, UNCOMP 11/27/2017 JEFFERY DE SOUZA MD Ot I10 ESSENTIAL (PRIMARY) HYPERTENSION 11/27/2017 JEFFERY DE SOUZA MD Ot I25. 10 ATHSCL HEART DISEASE OF [place] CORONARY 11/27/2017 JEFFERY DE SOUZA MD Ot I26. 99 OTHER PULMONARY EMBOLISM WITHOUT ACUTE C 11/27/2017 JEFFERY DE SOUZA MD Ot I70. 0 ATHEROSCLEROSIS OF [place] 11/27/2017 JEFFERY DE SOUZA MD Ot I70. 8 ATHEROSCLEROSIS OF OTHER ARTERIES 11/27/2017 JEFFERY DE SOUZA MD Ot I82.402 ACUTE EMBOLISM AND THOMBOS UNSP DEEP VEI 11/27/2017 JEFFERY DE SOUZA MD Ot M89.572 OSTEOLYSIS, LEFT ANKLE AND FOOT 11/27/2017 JEFFERY DE SOUZA MD Ot R06. 00 DYSPNEA, UNSPECIFIED 11/28/2017 JEFFERY DE SOUZA MD Ot I26. 99 OTHER PULMONARY EMBOLISM WITHOUT ACUTE C 11/28/2017 JEFFERY DE SOUZA MD Ot Z79. 01 [facility] (CURRENT) USE OF ANTICOAGULANT 11/29/2017 JEFFERY DE SOUZA MD Ot I26. 99 OTHER PULMONARY EMBOLISM WITHOUT ACUTE C 11/29/2017 JEFFERY DE SOUZA MD Ot Z79. 01 [facility] (CURRENT) USE OF ANTICOAGULANT 03/15/2018 JEFFERY DE SOUZA MD Ot I26. 99 OTHER PULMONARY EMBOLISM WITHOUT ACUTE C 03/15/2018 JEFFERY DE SOUZA MD Ot Z79. 01 [facility]NA[facility] MICROBIOLOGY [facility] (CURRENT) USE OF ANTICOAGULANT 03/15/2018 JEFFERY DE SOUZA MD Ot I26. 99 OTHER PULMONARY EMBOLISM WITHOUT ACUTE C 03/15/2018 JEFFERY DE SOUZA MD Ot Z79. 01 ANALYST MICROBIOLOGY LAB (CURRENT) USE OF ANTICOAGULANT 03/31/2018 JEFFERY DE SOUZA MD Ot I26. 99 OTHER PULMONARY EMBOLISM WITHOUT ACUTE C 03/31/2018 JEFFERY DE SOUZA MD Ot Z79. 01 [facility] (CURRENT) USE OF ANTICOAGULANT 04/22/2018 JEFFERY DE SOUZA MD Ot I26. 99 OTHER PULMONARY EMBOLISM WITHOUT ACUTE C 04/22/2018 JEFFERY DE SOUZA MD Ot Z79. 01 [facility] (CURRENT) USE OF ANTICOAGULANT 04/23/2018 JEFFERY DE SOUZA MD Ot I26. 99 OTHER PULMONARY EMBOLISM WITHOUT ACUTE C 04/23/2018 JEFFERY DE SOUZA MD Ot Z79. 01 [facility] (CURRENT) USE OF ANTICOAGULANT 04/25/2018 JEFFERY DE SOUZA MD Ot I26. 99 OTHER PULMONARY EMBOLISM WITHOUT ACUTE C 04/25/2018 JEFFERY DE SOUZA MD Ot Z79. 01 ANALYST MICROBIOLOGY LAB (CURRENT) USE OF ANTICOAGULANT 05/28/2018 JEFFERY DE SOUZA MD Ot I26. 99 OTHER PULMONARY EMBOLISM WITHOUT ACUTE C 05/28/2018 JEFFERY DE SOUZA MD Ot Z79. 01 [facility] (CURRENT) USE OF ANTICOAGULANT 07/11/2018 JEFFERY DE SOUZA MD Ot I11. 0 HYPERTENSIVE HEART DISEASE WITH HEART FA 07/11/2018 JEFFERY DE SOUZA MD Ot I25. 10 ATHSCL HEART DISEASE OF [place] CORONARY 07/11/2018 JEFFERY DE SOUZA MD Ot I26. 99 OTHER PULMONARY EMBOLISM WITHOUT ACUTE C 07/11/2018 JEFFERY DE SOUZA MD Ot I50. 9 HEART FAILURE, UNSPECIFIED 07/11/2018 JEFFERY DE SOUZA MD Ot R07. 9 CHEST PAIN, UNSPECIFIED 07/11/2018 JEFFERY DE SOUZA MD Ot I25. 10 ATHSCL HEART DISEASE OF [place] CORONARY 07/11/2018 JEFFERY DE SOUZA MD Ot I50. 9 HEART FAILURE, UNSPECIFIED 07/11/2018 JEFFERY DE SOUZA MD Ot R07. 9 CHEST PAIN, UNSPECIFIED 07/11/2018 JEFFERY DE SOUZA MD Ot I82.403 ACUTE EMBOLISM AND THOMBOS UNSP DEEP VEI 07/11/2018 JEFFERY DE SOUZA MD Ot Z79. 01 ANALYST MICROBIOLOGY LAB (CURRENT) USE OF ANTICOAGULANT 07/11/2018 JEFFERY DE SOUZA MD Ot I26. 99 OTHER PULMONARY EMBOLISM WITHOUT ACUTE C 07/11/2018 JEFFERY DE SOUZA MD Ot Z51. 81 ENCOUNTER FOR THERAPEUTIC DRUG LEVEL MON 07/11/2018 JEFFERY DE SOUZA MD Ot I10 ESSENTIAL (PRIMARY) HYPERTENSION 07/11/2018 JEFFERY DE SOUZA MD, Ot I25. 10 ATHSCL HEART DISEASE OF [place] CORONARY 07/11/2018 JEFFERY DE SOUZA MD Ot R06. 00 DYSPNEA, UNSPECIFIED 07/11/2018 JEFFERY DE SOUZA MD Ot R07. 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 10 ATHSCL HEART DISEASE OF [place] CORONARY 07/11/2018 JEFFERY DE SOUZA MD Ot I26. 99 OTHER PULMONARY EMBOLISM WITHOUT ACUTE C 07/11/2018 JEFFERY DE SOUZA MD Ot I70. 0 ATHEROSCLEROSIS OF [place] 07/11/2018 JEFFERY DE SOUZA MD Ot I70. 8 ATHEROSCLEROSIS OF OTHER ARTERIES 07/11/2018 JEFFERY DE SOUZA MD Ot I82.402 ACUTE EMBOLISM AND THOMBOS UNSP DEEP VEI 07/11/2018 JEFFERY DE SOUZA MD Ot M89.572 OSTEOLYSIS, LEFT ANKLE AND FOOT 07/11/2018 JEFFERY DE SOUZA MD Ot R06. 00 DYSPNEA, UNSPECIFIED 07/11/2018 VIOLA CALDERON MD Ot M79.89 OTHER SPECIFIED SOFT TISSUE DISORDERS 07/11/2018 JEFFERY DE SOUZA MD Ot I10 ESSENTIAL (PRIMARY) HYPERTENSION 07/11/2018 JEFFERY DE SOUZA MD Ot I21. 3 ST ELEVATION (STEMI) MYOCARDIAL INFARCTI 07/11/2018 JEFFERY DE SOUZA MD Ot I25. 10 ATHSCL HEART DISEASE OF [place] CORONARY 07/11/2018 JEFFERY DE SOUZA MD Ot K27. 9 PEPTIC ULC, SITE UNSP, UNSP AC OR CHR 07/11/2018 JEFFERY DE SOUZA MD Ot R06. 02 SHORTNESS OF BREATH 07/11/2018 JEFFERY DE SOUZA MD Ot R07. 89 OTHER CHEST PAIN 07/11/2018 JEFFERY DE SOUZA MD Ot I50. 9 HEART FAILURE, UNSPECIFIED 07/11/2018 JEFFERY DE SOUZA MD Ot I26. 99 OTHER PULMONARY EMBOLISM WITHOUT ACUTE C 07/11/2018 JEFFERY DE SOUZA MD Ot Z79. 01 ANALYST MICROBIOLOGY LAB (CURRENT) USE OF ANTICOAGULANT 07/13/2018 JOHN MONDRAGON MD Ot E78.00 PURE HYPERCHOLESTEROLEMIA, UNSPECIFIED 07/13/2018 JOHN MONDRAGON MD Ot F17.210 NICOTINE DEPENDENCE, CIGARETTES, UNCOMPL 07/13/2018 JOHN MONDRAGON MD Ot I10 ESSENTIAL (PRIMARY) HYPERTENSION 07/13/2018 JOHN MONDRAGON MD Ot I21 .4 NON-ST ELEVATION (NSTEMI) MYOCARDIAL INF 07/13/2018 JOHN MONRDAGON MD Ot I25.10 ATHSCL HEART DISEASE OF [place] CORONARY 07/13/2018 JOHN MONDRAGON MD Ot I25 .2 OLD MYOCARDIAL INFARCTION 07/13/2018 JOHN MONDRAGON MD Ot I73 .9 PERIPHERAL VASCULAR DISEASE, UNSPECIFIED 07/13/2018 JOHN MONDRAGON MD Ot K21 .9 GASTRO-ESOPHAGEAL REFLUX DISEASE WITHOUT 07/13/2018 JOHN MONDRAGON MD Ot M10 .9 GOUT, UNSPECIFIED 07/13/2018 JOHN MONDRAGON MD Ot Z79.01 [facility] (CURRENT) USE OF ANTICOAGULANT 07/13/2018 JOHN MONDRAGON MD Ot Z79.899 OTHER [facility] (CURRENT) DRUG THERAPY 07/13/2018 JOHN MONDRAGON MD Ot Z86.711 PERSONAL HISTORY OF PULMONARY EMBOLISM 07/13/2018 JOHN MONDRAGON MD Ot Z86.718 PERSONAL HISTORY OF OTHER VENOUS THROMBO 07/13/2018 JOHN MONDRAGON MD Ot Z95 .5 PRESENCE OF CORONARY ANGIOPLASTY IMPLANT 07/13/2018 JOHN MONDRAGON MD Ot E78.00 PURE HYPERCHOLESTEROLEMIA, UNSPECIFIED 07/13/2018 JOHN MONDRAGON MD Ot F17.210 NICOTINE DEPENDENCE, CIGARETTES, UNCOMPL 07/13/2018 JOHN MONDRAGON MD Ot I10 ESSENTIAL (PRIMARY) HYPERTENSION 07/13/2018 JOHN MONDRAGON MD Ot I21 .4 NON-ST ELEVATION (NSTEMI) MYOCARDIAL INF 07/13/2018 JOHN MONDRAGON MD Ot I25.10 ATHSCL HEART DISEASE OF [place] CORONARY 07/13/2018 JOHN MONDRAGON MD Ot I25 .2 OLD MYOCARDIAL INFARCTION 07/13/2018 JOHN MONDRAGON MD Ot I73 .9 PERIPHERAL VASCULAR DISEASE, UNSPECIFIED 07/13/2018 JOHN MONDRAGON MD, Ot K21 .9 GASTRO-ESOPHAGEAL REFLUX DISEASE WITHOUT 07/13/2018 JOHN MONDRAGON MD Ot M10 .9 GOUT, UNSPECIFIED 07/13/2018 JOHN MONDRAGON MD Ot Z79.01 [facility] (CURRENT) USE OF ANTICOAGULANT 07/13/2018 JOHN MONDRAGON MD Ot Z79.899 OTHER ANALYST MICROBIOLOGY LAB (CURRENT) DRUG THERAPY 07/13/2018 JOHN MONDRAGON MD Ot Z86.711 PERSONAL HISTORY OF PULMONARY EMBOLISM 07/13/2018 JOHN MONDRAGON MD Ot Z86.718 PERSONAL HISTORY OF OTHER VENOUS THROMBO 07/13/2018 JOHN MONDRAGON MD Ot Z95 .5 PRESENCE OF CORONARY ANGIOPLASTY IMPLANT 09/30/2018 ERIKA BECK SONIYA Ot E78.5 HYPERLIPIDEMIA, UNSPECIFIED 09/30/2018 JAMES DO, SONIYA Ot I11.0 HYPERTENSIVE HEART DISEASE WITH HEART FA 09/30/2018 ERIKA BECK SONIYA Ot I25.10 ATHSCL HEART DISEASE OF [place] CORONARY 09/30/2018 ERIKA BECK SONIYA Ot I25.2 OLD MYOCARDIAL INFARCTION 09/30/2018 ERIKA BECK SONIYA Ot I50.22 CHRONIC SYSTOLIC (CONGESTIVE) HEART FAIL 09/30/2018 ERIKA BECK SONIYA Ot I73.1 THROMBOANGIITIS OBLITERANS [BUERGER'S DI 09/30/2018 ERIKA BECK SONIYA Ot J44.9 CHRONIC OBSTRUCTIVE PULMONARY DISEASE, U 09/30/2018 ERIKA BECK SONIYA Ot K21.9 GASTRO-ESOPHAGEAL REFLUX DISEASE WITHOUT 09/30/2018 ERIKA BECK SONIYA Ot M10.9 GOUT, UNSPECIFIED 09/30/2018 ERIKA BECK SONIYA Ot M54.9 DORSALGIA, UNSPECIFIED 09/30/2018 ERIKA BECK SONIYA Ot Z47.81 ENCOUNTER FOR ORTHOPEDIC AFTERCARE FOLLO 09/30/2018 ERIKA BECK SONIYA Ot Z86.71 1 PERSONAL HISTORY OF PULMONARY EMBOLISM 09/30/2018 ERIKA BECK SONIYA Ot Z86.71 8 PERSONAL HISTORY OF OTHER VENOUS THROMBO 09/30/2018 ERIKA BECK SONIYA Ot Z87.89 1 PERSONAL HISTORY OF NICOTINE DEPENDENCE 09/30/2018 ERIKA BECK SONIYA Ot Z89.61 2 ACQUIRED ABSENCE OF LEFT LEG ABOVE KNEE 09/30/2018 ERIKA BECK SONIYA Ot Z95.5 PRESENCE OF CORONARY ANGIOPLASTY IMPLANT 10/23/2018 MENDOZA CRAWFORD MD Ot E78.00 PURE HYPERCHOLESTEROLEMIA, UNSPECIFIED 10/23/2018 MENDOZA CRAWFORD MD Ot F17.210 NICOTINE DEPENDENCE, CIGARETTES, UNCOMPL 10/23/2018 MENDOZA CRAWFORD MD Ot I10 ESSENTIAL (PRIMARY) HYPERTENSION 10/23/2018 MENDOZA CRAWFORD MD Ot I25.10 ATHSCL HEART DISEASE OF [place] CORONARY 10/23/2018 MENDOZA CRAWFORD MD, Ot I25.2 OLD MYOCARDIAL INFARCTION 10/23/2018 MENDOZA CRAWFORD MD, Ot K21.9 GASTRO-ESOPHAGEAL REFLUX DISEASE WITHOUT 10/23/2018 MENDOZA CRAWFORD MD, Ot M10.9 GOUT, UNSPECIFIED 10/23/2018 MENDOZA CRAWFORD MD, Ot Z48.89 ENCOUNTER FOR OTHER SPECIFIED SURGICAL A 10/23/2018 MENDOZA CRAWFORD MD, Ot Z79.02 [facility] (CURRENT) USE OF ANTITHROMBOTI 10/23/2018 MENDOZA CRAWFORD MD, Ot Z79.82 [facility] (CURRENT) USE OF ASPIRIN 10/23/2018 MENDOZA CRAWFORD MD, Ot Z82.49 FAMILY HX OF ISCHEM HEART DIS AND OTH DI 10/23/2018 MENDOZA CRAWFORD MD, Ot Z86.711 PERSONAL HISTORY OF PULMONARY EMBOLISM 10/23/2018 MENDOZA CRAWFORD MD, Ot Z86.718 PERSONAL HISTORY OF OTHER VENOUS THROMBO 10/23/2018 MENDOZA CRAWFORD MD, Ot Z88.0 ALLERGY STATUS TO PENICILLIN 10/23/2018 MENDOZA CRAWFORD MD, Ot Z95.5 PRESENCE OF CORONARY ANGIOPLASTY IMPLANT 10/23/2018 MENDOZA CRAWFORD MD, Ot Z96.652 PRESENCE OF LEFT ARTIFICIAL KNEE JOINT 10/23/2018 MENDOZA CRAWFORD MD, Ot Z98.890 OTHER SPECIFIED POSTPROCEDURAL STATES 10/27/2018 MENDOZA CRAWFORD MD, Ot E78.00 PURE HYPERCHOLESTEROLEMIA, UNSPECIFIED 10/27/2018 MENDOZA CRAWFORD MD Ot F17.210 NICOTINE DEPENDENCE, CIGARETTES, UNCOMPL 10/27/2018 MENDOZA CRAWFORD MD, Ot I10 ESSENTIAL (PRIMARY) HYPERTENSION 10/27/2018 MENDOZA CRAWFORD MD, Ot I25.10 ATHSCL HEART DISEASE OF [place] CORONARY 10/27/2018 MENDOZA CRAWFORD MD, Ot I25.2 OLD MYOCARDIAL INFARCTION 10/27/2018 MENDOZA CRAWFORD MD, Ot K21.9 GASTRO-ESOPHAGEAL REFLUX DISEASE WITHOUT 10/27/2018 MENDOZA CRAWFORD MD, Ot M10.9 GOUT, UNSPECIFIED 10/27/2018 MENDOZA CRAWFORD MD Ot Z48.89 ENCOUNTER FOR OTHER SPECIFIED SURGICAL A 10/27/2018 MENDOZA CRAWFORD MD Ot Z79.02 ANALYST MICROBIOLOGY LAB (CURRENT) USE OF ANTITHROMBOTI 10/27/2018 MENDOZA CRAWFORD MD Ot Z79.82 ANALYST MICROBIOLOGY LAB (CURRENT) USE OF ASPIRIN 10/27/2018 MENDOZA CRAWFORD MD Ot Z82.49 FAMILY HX OF ISCHEM HEART DIS AND OTH DI 10/27/2018 MENDOZA CRAWFORD MD, Ot Z86.711 PERSONAL HISTORY OF PULMONARY EMBOLISM 10/27/2018 MENDOZA CRAWFORD MD, Ot Z86.718 PERSONAL HISTORY OF OTHER VENOUS THROMBO 10/27/2018 MENDOZA CRAWFORD MD Ot Z88.0 ALLERGY STATUS TO PENICILLIN 10/27/2018 MENDOZA CRAWFORD MD Ot Z95.5 PRESENCE OF CORONARY ANGIOPLASTY IMPLANT 10/27/2018 MENDOZA CRAWFORD MD Ot Z96.652 PRESENCE OF LEFT ARTIFICIAL KNEE JOINT 10/27/2018 MENDOZA CRAWFORD MD Ot Z98.890 OTHER SPECIFIED POSTPROCEDURAL STATES 11/05/2018 RENU OCHOA APRN Ot Z89.612 ACQUIRED ABSENCE OF LEFT LEG ABOVE KNEE 11/18/2018 RENU OCHOA APRN Ot Z89.612 ACQUIRED ABSENCE OF LEFT LEG ABOVE KNEE 11/20/2018 RENU OCHOA APRN Ot Z89.612 ACQUIRED ABSENCE OF LEFT LEG ABOVE KNEE 11/26/2018 Ot 270.4 11/26/2018 Ot 305.1 11/26/2018 Ot 536.8 11/26/2018 Ot 729.81 11/26/2018 Ot V12.51 11/26/2018 Ot V58.61 11/26/2018 Ot V58.69 11/26/2018 Ot 270.4 11/26/2018 Ot 305.1 11/26/2018 Ot 536.8 11/26/2018 Ot V12.51 11/26/2018 Ot V58.61 11/26/2018 Ot V58.69 11/26/2018 Ot 272.4 11/26/2018 Ot 729.5 11/26/2018 Ot 780.79 11/26/2018 Ot 270.4 11/26/2018 Ot 305.1 11/26/2018 Ot 536.8 11/26/2018 Ot 729.5 11/26/2018 Ot V12.51 11/26/2018 Ot V58.69 11/26/2018 Ot 270.4 11/26/2018 Ot 305.1 11/26/2018 Ot 536.8 11/26/2018 Ot V12.51 11/26/2018 Ot V58.69 11/26/2018 Ot 786.09 11/26/2018 Ot 786.50 11/26/2018 Ot 786.09 11/26/2018 Ot 786.50 11/26/2018 Ot 270.4 11/26/2018 Ot 305.1 11/26/2018 Ot 533.90 11/26/2018 Ot V12.51 11/26/2018 Ot 272.4 11/26/2018 Ot 401.9 11/26/2018 Ot 414.00 11/26/2018 Ot 272.4 11/26/2018 Ot 356.9 11/26/2018 Ot 272.4 11/26/2018 Ot 729.5 11/26/2018 Ot V58.61 11/26/2018 Ot 272.1 PURE HYPERGLYCERIDEMIA 11/26/2018 Ot 414.00 COR ON ATHEROSCLER NOS TYPE VESSEL, NATIV 11/26/[address] PAIN NOS 11/26/2018 Ot 397.0 TRIC USPID VALVE DISEASE 11/26/2018 Ot 414.00 COR ON ATHEROSCLER NOS TYPE VESSEL, NATIV 11/26/2018 Ot 424.0 MITR AL VALVE DISORDER 11/26/[address] PAIN NOS 11/26/2018 Ot 272.4 HYPE RLIPIDEMIA NEC/NOS 11/26/2018 Ot 401.9 HYPE RTENSION NOS 11/26/2018 Ot 414.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 11/26/2018 Ot 401.9 HYPE RTENSION NOS 11/26/2018 Ot 414.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 11/26/2018 Ot 428.0 SANDRA ESTIVE HEART FAILURE NOS 11/26/2018 Ot 719.40 VANESSA NT PAIN-UNSPEC 11/26/2018 Ot 782.3 EDEMA 11/26/2018 Ot V58.61 ANTICOAGULANTS,LT,CURRENT USE 11/26/2018 JEFFERY DE SOUZA MD Ot I11. 0 HYPERTENSIVE HEART DISEASE WITH HEART FA 11/26/2018 JEFFERY DE SOUZA MD Ot I25. 10 ATHSCL HEART DISEASE OF [place] CORONARY 11/26/2018 JEFFERY DE SOUZA MD Ot I26. 99 OTHER PULMONARY EMBOLISM WITHOUT ACUTE C 11/26/2018 JEFFERY DE SOUZA MD Ot I50. 9 HEART FAILURE, UNSPECIFIED 11/26/2018 JEFFERY DE SOUZA MD Ot R07. 9 CHEST PAIN, UNSPECIFIED 11/26/2018 JEFFERY DE SOUZA MD Ot I25. 10 ATHSCL HEART DISEASE OF [place] CORONARY 11/26/2018 JEFFERY DE SOUZA MD, Ot I50. 9 HEART FAILURE, UNSPECIFIED 11/26/2018 JEFFERY DE SOUZA MD Ot R07. 9 CHEST PAIN, UNSPECIFIED 11/26/2018 JEFFERY DE SOUZA MD Ot I82.403 ACUTE EMBOLISM AND THOMBOS UNSP DEEP VEI 11/26/2018 JEFFERY DE SOUZA MD Ot Z79. 01 [facility] (CURRENT) USE OF ANTICOAGULANT 11/26/2018 JEFFERY DE SOUZA MD, Ot I26. 99 OTHER PULMONARY EMBOLISM WITHOUT ACUTE C 11/26/2018 JEFFERY DE SOUZA MD Ot Z51. 81 ENCOUNTER FOR THERAPEUTIC DRUG LEVEL MON 11/26/2018 JEFFERY DE SOUZA MD Ot I10 ESSENTIAL (PRIMARY) HYPERTENSION 11/26/2018 JEFFERY DE SOUZA MD Ot I25. 10 ATHSCL HEART DISEASE OF [place] CORONARY 11/26/2018 JEFFERY DE SOUZA MD Ot R06. 00 DYSPNEA, UNSPECIFIED 11/26/2018 JEFFERY DE SOUZA MD Ot R07. 89 OTHER CHEST PAIN 11/26/2018 FREDRICK MCCAULEY MD Ot I25.11 9 ATHSCL HEART DISEASE OF [place] COR ART W 11/26/2018 FREDRICK MCCAULEY MD Ot Z01.81 2 ENCOUNTER FOR PREPROCEDURAL LABORATORY E 11/26/2018 JEFFERY DE SOUZA MD Ot M79.605 PAIN IN LEFT LEG 11/26/2018 CÉSAR KILGORE MD Ot G63 POLYNEUROPATHY IN DISEASES CLASSIFIED EL 11/26/2018 CÉSAR KILGORE MD Ot I75.022 ATHEROEMBOLISM OF LEFT LOWER EXTREMITY 11/26/2018 MAGUI ENRIQUE, CÉSAR Sanchez Ot M79.662 PAIN IN LEFT LOWER LEG 11/26/2018 JEFFERY DE SOUZA MD Ot F17.200 NICOTINE DEPENDENCE, UNSPECIFIED, UNCOMP 11/26/2018 JEFFERY DE SOUZA MD Ot I10 ESSENTIAL (PRIMARY) HYPERTENSION 11/26/2018 JEFFERY DE SOUZA MD Ot I25. 10 ATHSCL HEART DISEASE OF [place] CORONARY 11/26/2018 JEFFERY DE SOUZA MD Ot I26. 99 OTHER PULMONARY EMBOLISM WITHOUT ACUTE C 11/26/2018 JEFFERY DE SOUZA MD Ot I70. 0 ATHEROSCLEROSIS OF [place] 11/26/2018 JEFFERY DE SOUZA MD Ot I70. 8 ATHEROSCLEROSIS OF OTHER ARTERIES 11/26/2018 JEFFERY DE SOUZA MD Ot I82.402 ACUTE EMBOLISM AND THOMBOS UNSP DEEP VEI 11/26/2018 JEFFERY DE SOUZA MD Ot M89.572 OSTEOLYSIS, LEFT ANKLE AND FOOT 11/26/2018 JEFFERY DE SOUZA MD Ot R06. 00 DYSPNEA, UNSPECIFIED 11/26/2018 VIOLA CALDERON MD Ot M79.89 OTHER SPECIFIED SOFT TISSUE DISORDERS 11/26/2018 JEFFERY DE SOUZA MD Ot I10 ESSENTIAL (PRIMARY) HYPERTENSION 11/26/2018 JEFFERY DE SOUZA MD Ot I21. 3 ST ELEVATION (STEMI) MYOCARDIAL INFARCTI 11/26/2018 JEFFERY DE SOUZA MD Ot I25. 10 ATHSCL HEART DISEASE OF [place] CORONARY 11/26/2018 JEFFERY DE SOUZA MD Ot K27. 9 PEPTIC ULC, SITE UNSP, UNSP AC OR CHR 11/26/2018 JEFFERY DE SOUZA MD Ot R06. 02 SHORTNESS OF BREATH 11/26/2018 JEFFERY DE SOUZA MD Ot R07. 89 OTHER CHEST PAIN 11/26/2018 JEFFERY DE SOUZA MD Ot I50. 9 HEART FAILURE, UNSPECIFIED 11/26/2018 JEFFERY DE SOUZA MD Ot I26. 99 OTHER PULMONARY EMBOLISM WITHOUT ACUTE C 11/26/2018 JEFFERY DE SOUZA MD Ot Z79. 01 ANALYST MICROBIOLOGY LAB (CURRENT) USE OF ANTICOAGULANT 11/26/2018 RENU OCHOA APRN Ot Z89.612 ACQUIRED ABSENCE OF LEFT LEG ABOVE KNEE 11/26/2018 Ot 270.4 11/26/2018 Ot 305.1 11/26/2018 Ot 536.8 11/26/2018 Ot 729.81 11/26/2018 Ot V12.51 11/26/2018 Ot V58.61 11/26/2018 Ot V58.69 11/26/2018 Ot 270.4 11/26/2018 Ot 305.1 11/26/2018 Ot 536.8 11/26/2018 Ot V12.51 11/26/2018 Ot V58.61 11/26/2018 Ot V58.69 11/26/2018 Ot 272.4 11/26/2018 Ot 729.5 11/26/2018 Ot 780.79 11/26/2018 Ot 270.4 11/26/2018 Ot 305.1 11/26/2018 Ot 536.8 11/26/2018 Ot 729.5 11/26/2018 Ot V12.51 11/26/2018 Ot V58.69 11/26/2018 Ot 270.4 11/26/2018 Ot 305.1 11/26/2018 Ot 536.8 11/26/2018 Ot V12.51 11/26/2018 Ot V58.69 11/26/2018 Ot 786.09 11/26/2018 Ot 786.50 11/26/2018 Ot 786.09 11/26/2018 Ot 786.50 11/26/2018 Ot 270.4 11/26/2018 Ot 305.1 11/26/2018 Ot 533.90 11/26/2018 Ot V12.51 11/26/2018 Ot 272.4 11/26/2018 Ot 401.9 11/26/2018 Ot 414.00 11/26/2018 Ot 272.4 11/26/2018 Ot 356.9 11/26/2018 Ot 272.4 11/26/2018 Ot 729.5 11/26/2018 Ot V58.61 11/26/2018 Ot 272.1 PURE HYPERGLYCERIDEMIA 11/26/2018 Ot 414.00 COR ON ATHEROSCLER NOS TYPE VESSEL, NATIV 11/26/[address] PAIN NOS 11/26/2018 Ot 397.0 TRIC USPID VALVE DISEASE 11/26/2018 Ot 414.00 COR ON ATHEROSCLER NOS TYPE VESSEL, NATIV 11/26/2018 Ot 424.0 MITR AL VALVE DISORDER 11/26/[address] PAIN NOS 11/26/2018 Ot 272.4 HYPE RLIPIDEMIA NEC/NOS 11/26/2018 Ot 401.9 HYPE RTENSION NOS 11/26/2018 Ot 414.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 11/26/2018 Ot 401.9 HYPE RTENSION NOS 11/26/2018 Ot 414.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 11/26/2018 Ot 428.0 SANDRA ESTIVE HEART FAILURE NOS 11/26/2018 Ot 719.40 VANESSA NT PAIN-UNSPEC 11/26/2018 Ot 782.3 EDEMA 11/26/2018 Ot V58.61 ANTICOAGULANTS,LT,CURRENT USE 11/26/2018 JEFFERY DE SOUZA MD Ot I11. 0 HYPERTENSIVE HEART DISEASE WITH HEART FA 11/26/2018 JEFFERY DE SOUZA MD Ot I25. 10 ATHSCL HEART DISEASE OF [place] CORONARY 11/26/2018 JEFFERY DE SOUZA MD Ot I26. 99 OTHER PULMONARY EMBOLISM WITHOUT ACUTE C 11/26/2018 JEFFERY DE SOUZA MD Ot I50. 9 HEART FAILURE, UNSPECIFIED 11/26/2018 JEFFERY DE SOUZA MD Ot R07. 9 CHEST PAIN, UNSPECIFIED 11/26/2018 JEFFERY DE SOUZA MD Ot I25. 10 ATHSCL HEART DISEASE OF [place] CORONARY 11/26/2018 JEFFERY DE SOUZA MD Ot I50. 9 HEART FAILURE, UNSPECIFIED 11/26/2018 JEFFERY DE SOUZA MD Ot R07. 9 CHEST PAIN, UNSPECIFIED 11/26/2018 JEFFERY DE SOUZA MD Ot I82.403 ACUTE EMBOLISM AND THOMBOS UNSP DEEP VEI 11/26/2018 JEFFERY DE SOUZA MD Ot Z79. 01 [facility] (CURRENT) USE OF ANTICOAGULANT 11/26/2018 JEFFERY DE SOUZA MD Ot I26. 99 OTHER PULMONARY EMBOLISM WITHOUT ACUTE C 11/26/2018 JEFFERY DE SOUZA MD Ot Z51. 81 ENCOUNTER FOR THERAPEUTIC DRUG LEVEL MON 11/26/2018 JEFFERY DE SOUZA MD Ot I10 ESSENTIAL (PRIMARY) HYPERTENSION 11/26/2018 JEFFERY DE SOUZA MD Ot I25. 10 ATHSCL HEART DISEASE OF [place] CORONARY 11/26/2018 JEFFERY DE SOUZA MD Ot R06. 00 DYSPNEA, UNSPECIFIED 11/26/2018 JEFFERY DE SOUZA MD Ot R07. 89 OTHER CHEST PAIN 11/26/2018 FREDRICK MCCAULEY MD Ot I25.11 9 ATHSCL HEART DISEASE OF [place] COR ART W 11/26/2018 FREDRICK MCCAULEY MD Ot Z01.81 2 ENCOUNTER FOR PREPROCEDURAL LABORATORY E 11/26/2018 JEFFERY DE SOUZA MD Ot M79.605 PAIN IN LEFT LEG 11/26/2018 CÉSAR KILGORE MD Ot G63 POLYNEUROPATHY IN DISEASES CLASSIFIED EL 11/26/2018 CÉSAR KILGORE MD Ot I75.022 ATHEROEMBOLISM OF LEFT LOWER EXTREMITY 11/26/2018 CÉSAR KILGORE MD Ot M79.662 PAIN IN LEFT LOWER LEG 11/26/2018 JEFFERY DE SOUZA MD Ot F17.200 NICOTINE DEPENDENCE, UNSPECIFIED, UNCOMP 11/26/2018 JEFFERY DE SOUZA MD Ot I10 ESSENTIAL (PRIMARY) HYPERTENSION 11/26/2018 JEFFERY DE SOUZA MD Ot I25. 10 ATHSCL HEART DISEASE OF [place] CORONARY 11/26/2018 JEFFERY DE SOUZA MD Ot I26. 99 OTHER PULMONARY EMBOLISM WITHOUT ACUTE C 11/26/2018 JEFFERY DE SOUZA MD Ot I70. 0 ATHEROSCLEROSIS OF [place] 11/26/2018 JEFFERY DE SOUZA MD Ot I70. 8 ATHEROSCLEROSIS OF OTHER ARTERIES 11/26/2018 JEFFERY DE SOUZA MD Ot I82.402 ACUTE EMBOLISM AND THOMBOS UNSP DEEP VEI 11/26/2018 JEFFERY DE SOUZA MD Ot M89.572 OSTEOLYSIS, LEFT ANKLE AND FOOT 11/26/2018 JEFFERY DE SOUZA MD Ot R06. 00 DYSPNEA, UNSPECIFIED 11/26/2018 YUMIKO ENRIQUE, VIOLA Gutierrez Ot M79.89 OTHER SPECIFIED SOFT TISSUE DISORDERS 11/26/2018 JEFFERY DE SOUZA MD Ot I10 ESSENTIAL (PRIMARY) HYPERTENSION 11/26/2018 JEFFERY DE SOUZA MD Ot I21. 3 ST ELEVATION (STEMI) MYOCARDIAL INFARCTI 11/26/2018 JEFFERY DE SOUZA MD Ot I25. 10 ATHSCL HEART DISEASE OF [place] CORONARY 11/26/2018 JEFFERY DE SOUZA MD Ot K27. 9 PEPTIC ULC, SITE UNSP, UNSP AC OR CHR 11/26/2018 JEFFERY DE SOUZA MD Ot R06. 02 SHORTNESS OF BREATH 11/26/2018 JEFFERY DE SOUZA MD Ot R07. 89 OTHER CHEST PAIN 11/26/2018 JEFFERY DE SOUZA MD Ot I50. 9 HEART FAILURE, UNSPECIFIED 11/26/2018 JEFFERY DE SOUZA MD Ot I26. 99 OTHER PULMONARY EMBOLISM WITHOUT ACUTE C 11/26/2018 JEFFERY DE SOUZA MD Ot Z79. 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 0 HYPERTENSIVE HEART DISEASE WITH HEART FA 06/15/2019 JEFFERY DE SOUZA MD Ot I25. 10 ATHSCL HEART DISEASE OF [place] CORONARY 06/15/2019 JEFFERY DE SOUZA MD Ot I26. 99 OTHER PULMONARY EMBOLISM WITHOUT ACUTE C 06/15/2019 JEFFERY DE SOUZA MD Ot I50. 9 HEART FAILURE, UNSPECIFIED 06/15/2019 JEFFERY DE SOUZA MD Ot R07. 9 CHEST PAIN, UNSPECIFIED 06/15/2019 JEFFERY DE SOUZA MD Ot I25. 10 ATHSCL HEART DISEASE OF [place] CORONARY 06/15/2019 JEFFERY DE SOUZA MD Ot I50. 9 HEART FAILURE, UNSPECIFIED 06/15/2019 JEFFERY DE SOUZA MD Ot R07. 9 CHEST PAIN, UNSPECIFIED 06/15/2019 JEFFERY DE SOUZA MD Ot I82.403 ACUTE EMBOLISM AND THOMBOS UNSP DEEP VEI 06/15/2019 JEFFERY DE SOUZA MD Ot Z79. 01 ANALYST MICROBIOLOGY LAB (CURRENT) USE OF ANTICOAGULANT 06/15/2019 JEFFERY DE SOUZA MD Ot I26. 99 OTHER PULMONARY EMBOLISM WITHOUT ACUTE C 06/15/2019 JEFFERY DE SOUZA MD Ot Z51. 81 ENCOUNTER FOR THERAPEUTIC DRUG LEVEL MON 06/15/2019 JEFFERY DE SOUZA MD Ot I10 ESSENTIAL (PRIMARY) HYPERTENSION 06/15/2019 JEFFERY DE SOUZA MD Ot I25. 10 ATHSCL HEART DISEASE OF [place] CORONARY 06/15/2019 JEFFERY DE SOUZA MD Ot R06. 00 DYSPNEA, UNSPECIFIED 06/15/2019 JEFFERY DE SOUZA MD Ot R07. 89 OTHER CHEST PAIN 06/15/2019 FREDRICK MCCAULEY MD Ot I25.11 9 [facility] HEART DISEASE OF [place] COR ART W 06/15/2019 FREDRICK MCCAULEY MD Ot Z01.81 2 ENCOUNTER FOR PREPROCEDURAL LABORATORY E 06/15/2019 JEFFERY DE SOUZA MD Ot M79.605 PAIN IN LEFT LEG 06/15/2019 CÉSAR KILGORE MD Ot G63 POLYNEUROPATHY IN DISEASES CLASSIFIED EL 06/15/2019 CÉSAR KILGORE MD Ot I75.022 ATHEROEMBOLISM OF LEFT LOWER EXTREMITY 06/15/2019 CÉSAR KILGORE MD, Ot M79.662 PAIN IN LEFT LOWER LEG 06/15/2019 JEFFERY DE SOUZA MD Ot F17.200 NICOTINE DEPENDENCE, UNSPECIFIED, UNCOMP 06/15/2019 JEFFERY DE SOUZA MD Ot I10 ESSENTIAL (PRIMARY) HYPERTENSION 06/15/2019 JEFFERY DE SOUZA MD Ot I25. 10 ATHSCL HEART DISEASE OF [place] CORONARY 06/15/2019 JEFFERY DE SOUZA MD Ot I26. 99 OTHER PULMONARY EMBOLISM WITHOUT ACUTE C 06/15/2019 JEFFERY DE SOUZA MD Ot I70. 0 ATHEROSCLEROSIS OF [place] 06/15/2019 JEFFERY DE SOUZA MD Ot I70. 8 ATHEROSCLEROSIS OF OTHER ARTERIES 06/15/2019 JEFFERY DE SOUZA MD Ot I82.402 ACUTE EMBOLISM AND THOMBOS UNSP DEEP VEI 06/15/2019 JEFFERY DE SOUZA MD Ot M89.572 OSTEOLYSIS, LEFT ANKLE AND FOOT 06/15/2019 JEFFERY DE SOUZA MD Ot R06. 00 DYSPNEA, UNSPECIFIED 06/15/2019 YUMIKO ENRIQUE, VIOLA Gutierrez Ot M79.89 OTHER SPECIFIED SOFT TISSUE DISORDERS 06/15/2019 JEFFERY DE SOUZA MD Ot I10 ESSENTIAL (PRIMARY) HYPERTENSION 06/15/2019 JEFFERY DE SOUZA MD Ot I21. 3 ST ELEVATION (STEMI) MYOCARDIAL INFARCTI 06/15/2019 JEFFERY DE SOUZA MD Ot I25. 10 ATHSCL HEART DISEASE OF [place] CORONARY 06/15/2019 JEFFERY DE SOUZA MD Ot K27. 9 PEPTIC ULC, SITE UNSP, UNSP AC OR CHR 06/15/2019 JEFFERY DE SOUZA MD Ot R06. 02 SHORTNESS OF BREATH 06/15/2019 JEFFERY DE SOUZA MD Ot R07. 89 OTHER CHEST PAIN 06/15/2019 JEFFERY DE SOUZA MD Ot I50. 9 HEART FAILURE, UNSPECIFIED 06/15/2019 JEFFERY DE SOUZA MD Ot I26. 99 OTHER PULMONARY EMBOLISM WITHOUT ACUTE C 06/15/2019 JEFFERY DE SOUZA MD Ot Z79. 01 [facility] (CURRENT) USE OF ANTICOAGULANT 06/15/2019 JEFFERY DE SOUZA MD Ot E78. 00 PURE HYPERCHOLESTEROLEMIA, UNSPECIFIED 06/15/2019 JEFFERY DE SOUZA MD Ot F17.210 NICOTINE DEPENDENCE, CIGARETTES, UNCOMPL 06/15/2019 JEFFERY DE SOUZA MD Ot G89. 29 OTHER CHRONIC PAIN 06/15/2019 JEFFERY DE SOUZA MD Ot I11. 0 HYPERTENSIVE HEART DISEASE WITH HEART FA 06/15/2019 JEFFERY DE SOUZA MD Ot I25.110 ATHSCL HEART DISEASE OF [place] COR ART W 06/15/2019 JEFFERY DE SOUZA MD Ot I26. 99 OTHER PULMONARY EMBOLISM WITHOUT ACUTE C 06/15/2019 JEFFERY DE SOUZA MD Ot I50. 22 CHRONIC SYSTOLIC (CONGESTIVE) HEART FAIL 06/15/2019 JEFFERY DE SOUZA MD Ot I82.409 ACUTE EMBOLISM AND THOMBOS UNSP DEEP VN 06/15/2019 JEFFERY DE SOUZA MD Ot M10. 9 GOUT, UNSPECIFIED 06/15/2019 JEFFERY DE SOUZA MD Ot M54. 9 DORSALGIA, UNSPECIFIED 06/15/2019 JEFFERY DE SOUZA MD Ot R79. 89 OTHER SPECIFIED ABNORMAL FINDINGS OF BLO 06/15/2019 JEFFERY DE SOUZA MD Ot Z79. 01 ANALYST MICROBIOLOGY LAB (CURRENT) USE OF ANTICOAGULANT 06/15/2019 JEFFERY DE SOUZA MD Ot Z79. 82 [facility] (CURRENT) USE OF ASPIRIN 06/15/2019 JEFFERY DE SOUZA MD Ot Z79.891 [facility] (CURRENT) USE OF OPIATE ANALGE 06/15/2019 JEFFERY DE SOUZA MD Ot Z79.899 OTHER [facility] (CURRENT) DRUG THERAPY 06/15/2019 JEFFERY DE SOUZA MD Ot Z82. 49 FAMILY HX OF ISCHEM HEART DIS AND OTH DI 06/15/2019 JEFFERY DE SOUZA MD Ot Z82. 61 FAMILY HISTORY OF ARTHRITIS 06/15/2019 JEFFERY DE SOUZA MD Ot Z83. 3 FAMILY HISTORY OF DIABETES MELLITUS 06/15/2019 JEFFERY DE SOUZA MD Ot Z86. 74 PERSONAL HISTORY OF SUDDEN CARDIAC ARRES 06/15/2019 JEFFERY DE SOUZA MD Ot Z88. 0 ALLERGY STATUS TO PENICILLIN 06/15/2019 JEFFERY DE SOUZA MD Ot Z95. 1 PRESENCE OF AORTOCORONARY BYPASS GRAFT 06/17/2019 JEFFERY DE SOUZA MD Ot E78. 00 PURE HYPERCHOLESTEROLEMIA, UNSPECIFIED 06/17/2019 JEFFERY DE SOUZA MD Ot F17.210 NICOTINE DEPENDENCE, CIGARETTES, UNCOMPL 06/17/2019 JEFFERY DE SOUZA MD Ot G89. 29 OTHER CHRONIC PAIN 06/17/2019 JEFFERY DE SOUZA MD Ot I11. 0 HYPERTENSIVE HEART DISEASE WITH HEART FA 06/17/2019 JEFFERY DE SOUZA MD Ot I25.110 ATHSCL HEART DISEASE OF [place] COR ART W 06/17/2019 JEFFERY DE SOUZA MD Ot I26. 99 OTHER PULMONARY EMBOLISM WITHOUT ACUTE C 06/17/2019 JEFFERY DE SOUZA MD Ot I50. 22 CHRONIC SYSTOLIC (CONGESTIVE) HEART FAIL 06/17/2019 JEFFERY DE SOUZA MD Ot I82.409 ACUTE EMBOLISM AND THOMBOS UNSP DEEP VN 06/17/2019 JEFFERY DE SOUZA MD Ot M10. 9 GOUT, UNSPECIFIED 06/17/2019 JEFFERY DE SOUZA MD Ot M54. 9 DORSALGIA, UNSPECIFIED 06/17/2019 JEFFERY DE SOUZA MD Ot R79. 89 OTHER SPECIFIED ABNORMAL FINDINGS OF BLO 06/17/2019 JEFFERY DE SOUZA MD Ot Z79. 01 [facility] (CURRENT) USE OF ANTICOAGULANT 06/17/2019 JEFFERY DE SOUZA MD Ot Z79. 82 [facility] (CURRENT) USE OF ASPIRIN 06/17/2019 JEFFERY DE SOUZA MD Ot Z79.891 [facility] (CURRENT) USE OF OPIATE ANALGE 06/17/2019 JEFFERY DE SOUZA MD Ot Z79.899 OTHER [facility] (CURRENT) DRUG THERAPY 06/17/2019 JEFFERY DE SOUZA MD Ot Z82. 49 FAMILY HX OF ISCHEM HEART DIS AND OTH DI 06/17/2019 JEFFERY DE SOUZA MD Ot Z82. 61 FAMILY HISTORY OF ARTHRITIS 06/17/2019 JEFFERY DE SOUZA MD Ot Z83. 3 FAMILY HISTORY OF DIABETES MELLITUS 06/17/2019 JEFFERY DE SOUZA MD Ot Z86. 74 PERSONAL HISTORY OF SUDDEN CARDIAC ARRES 06/17/2019 JEFFERY DE SOUZA MD Ot Z88. 0 ALLERGY STATUS TO PENICILLIN 06/17/2019 JEFFERY DE SOUZA MD Ot Z95. 1 PRESENCE OF AORTOCORONARY BYPASS GRAFT 07/22/2019 JEFFERY DE SOUZA MD Ot I11. 0 HYPERTENSIVE HEART DISEASE WITH HEART FA 07/22/2019 JEFFERY DE SOUZA MD Ot I25. 10 ATHSCL HEART DISEASE OF [place] CORONARY 07/22/2019 JEFFERY DE SOUZA MD Ot I26. 99 OTHER PULMONARY EMBOLISM WITHOUT ACUTE C 07/22/2019 JEFFERY DE SOUZA MD Ot I50. 9 HEART FAILURE, UNSPECIFIED 07/22/2019 JEFFERY DE SOUZA MD Ot R07. 9 CHEST PAIN, UNSPECIFIED 07/22/2019 JEFFERY DE SOUZA MD Ot I25. 10 ATHSCL HEART DISEASE OF [place] CORONARY 07/22/2019 JEFFERY DE SOUZA MD Ot I50. 9 HEART FAILURE, UNSPECIFIED 07/22/2019 JEFFERY DE SOUZA MD Ot R07. 9 CHEST PAIN, UNSPECIFIED 07/22/2019 JEFFERY DE SOUZA MD Ot I82.403 ACUTE EMBOLISM AND THOMBOS UNSP DEEP VEI 07/22/2019 JEFFERY DE SOUZA MD Ot Z79. 01 [facility] (CURRENT) USE OF ANTICOAGULANT 07/22/2019 JEFFERY DE SOUZA MD Ot I26. 99 OTHER PULMONARY EMBOLISM WITHOUT ACUTE C 07/22/2019 JEFFERY DE SOUZA MD Ot Z51. 81 ENCOUNTER FOR THERAPEUTIC DRUG LEVEL MON 07/22/2019 JEFFERY DE SOUZA MD Ot I10 ESSENTIAL (PRIMARY) HYPERTENSION 07/22/2019 JEFFERY DE SOUZA MD Ot I25. 10 ATHSCL HEART DISEASE OF [place] CORONARY 07/22/2019 JEFFERY DE SOUZA MD Ot R06. 00 DYSPNEA, UNSPECIFIED 07/22/2019 JEFFERY DE SOUZA MD Ot R07. 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 10 ATHSCL HEART DISEASE OF [place] CORONARY 07/22/2019 JEFFERY DE SOUZA MD Ot I26. 99 OTHER PULMONARY EMBOLISM WITHOUT ACUTE C 07/22/2019 JEFFERY DE SOUZA MD Ot I70. 0 ATHEROSCLEROSIS OF [place] 07/22/2019 JEFFERY DE SOUZA MD Ot I70. 8 ATHEROSCLEROSIS OF OTHER ARTERIES 07/22/2019 JEFFERY DE SOUZA MD Ot I82.402 ACUTE EMBOLISM AND THOMBOS UNSP DEEP VEI 07/22/2019 JEFFERY DE SOUZA MD Ot M89.572 OSTEOLYSIS, LEFT ANKLE AND FOOT 07/22/2019 JEFFERY DE SOUZA MD Ot R06. 00 DYSPNEA, UNSPECIFIED 07/22/2019 VIOLA CALDERON MD Ot M79.89 OTHER SPECIFIED SOFT TISSUE DISORDERS 07/22/2019 JEFFERY DE SOUZA MD Ot I10 ESSENTIAL (PRIMARY) HYPERTENSION 07/22/2019 JEFFERY DE SOUZA MD Ot I21. 3 ST ELEVATION (STEMI) MYOCARDIAL INFARCTI 07/22/2019 JEFFERY DE SOUZA MD Ot I25. 10 ATHSCL HEART DISEASE OF [place] CORONARY 07/22/2019 JEFFERY DE SOUZA MD Ot K27. 9 PEPTIC ULC, SITE UNSP, UNSP AC OR CHR 07/22/2019 JEFFERY DE SOUZA MD Ot R06. 02 SHORTNESS OF BREATH 07/22/2019 JEFFERY DE SOUZA MD Ot R07. 89 OTHER CHEST PAIN 07/22/2019 JEFFERY DE SOUZA MD Ot I50. 9 HEART FAILURE, UNSPECIFIED 07/22/2019 JEFFERY DE SOUZA MD Ot I26. 99 OTHER PULMONARY EMBOLISM WITHOUT ACUTE C 07/22/2019 JEFFERY DE SOUZA MD Ot Z79. 01 [facility] (CURRENT) USE OF ANTICOAGULANT 07/27/2019 LUBA MARCIAL Ot I10 ESSENTIAL (PRIMARY) HYPERTENSION 07/27/2019 LUBA MARCIAL Ot I25.10 ATHSCL HEART DISEASE OF [place] CORONARY 07/27/2019 LUBA MARCIAL Ot I82.409 ACUTE EMBOLISM AND THOMBOS UNSP DEEP VN 07/27/2019 LUBA MARCIAL Ot R06.00 DYSPNEA, UNSPECIFIED 07/27/2019 LUBA MARCIAL Ot R07.89 OTHER CHEST PAIN 08/07/2019 LUBA MARCIAL Ot I10 ESSENTIAL (PRIMARY) HYPERTENSION 08/07/2019 LUBA MARCIAL Ot I25.10 ATHSCL HEART DISEASE OF [place] CORONARY 08/07/2019 LUBA MARCIAL Ot I82.409 ACUTE EMBOLISM AND THOMBOS UNSP DEEP VN 08/07/2019 LUBA MARCIAL Ot R06.00 DYSPNEA, UNSPECIFIED 08/07/2019 LUBA MARCIAL Ot R07.89 OTHER CHEST PAIN Procedures Code Description Performed By Per formed On 00.40 PROC EDURE ON SINGLE VESSEL 07/27/2012 00.45 INSE RTION OF ONE VASCULAR STENT 07/27/2012 00.66 PERC UTANEOUS TRANSLUMINAL CORONARY ANGIO 07/27/2012 36.07 INSR T OF DRUG-ELUTING CORON ARTERY STENT 07/27/2012 37.22 LEFT HEART CARDIAC CATH 07/27/2012 88.53 LT H EART ANGIOCARDIOGRAM 07/27/2012 88.56 SMITH NATHALIA ARTERIOGR-2 CATH 07/27/2012 CARDIOLOG JEFFERY DE SOUZA 01/30/2014 [id number] DI LATION OF 1 COR ART WITH DRUG-ELUT INT 07/12/2017 [id number] ME ASURE OF CARDIAC SAMPL PRESSURE, L H 07/12/2017 [id number] FL UOROSCOPY OF MULT COR ART USING L OSM 07/12/2017 [id number] FL UOROSCOPY OF LEFT HEART USING LOW OSMO 07/12/2017 Results Test Result Range Complete urinalysis with reflex to cultu re - 08/08/16 10:52 Urine color determination YELLOW NRG Urine clarity determination CLEAR NR G Urine pH measurement by test strip 8 5-9 Specific gravity of urine by test strip 1.010 1.016-1.022 Urine protein assay by test strip, semi-quantitative NEGATIVE NEGATIVE Urine glucose detection by automated test strip NE GATIVE NEGATIVE Erythrocytes detection in urine sediment by light micr oscopy NEGATIVE NEGATIVE Urine ketones detection by automated test strip NE GATIVE NEGATIVE Urine nitrite detection by test strip NEGATIVE NEGATIVE Urine total bilirubin detection by test strip NEGA TIVE NEGATIVE Urine urobilinogen measurement by automated test strip (mass/volume) NORMAL NORMAL Urine leukocyte esterase detection by dipstick NEG ATIVE NEGATIVE Automated urine sediment erythrocyte cou nt by microscopy (number/high power field) NONE NRG Automated urine sediment leukocyte count by microscopy (number/high power field) NONE NRG Bacteria detection in urine sediment by light microsco py NEGATIVE NRG Crystals detection in urine sediment by light microsco py NONE NRG Casts detection in urine sediment by light microscopy NONE NRG Mucus detection in urine sediment by light microscopy NEGATIVE NRG Complete urinalysis with reflex to culture NO NRG Automated blood complete blood count (he mogram) panel - 08/08/16 11:00 Blood leukocytes automated count (number/volume) 9.9 10*3/uL 4.3-11.0 Blood erythrocytes automated count (number/volume) 5.46 10*6/uL 4.35-5.85 Venous blood hemoglobin measurement (mass/volume) 15.7 g/dL 13.3-17.7 Blood hematocrit (volume fraction) 47 % 40-54 Automated erythrocyte mean corpuscular volume 86 [ foz_us] 80-99 Automated erythrocyte mean corpuscular h emoglobin (mass per erythrocyte) 29 pg 25-34 Automated erythrocyte mean corpuscular h emoglobin concentration measurement (mass/volume) 33 g/dL 32-36 Automated erythrocyte distribution width ratio 13. 9 % 10.0- 14.5 Automated blood platelet count (count/volume) 282 10*3/uL 130-400 Automated blood platelet mean volume measurement 9.0 [foz_us] 7.4-10.4 PT panel in platelet poor plasma by coag ulation assay - 08/08/16 11:00 Prothrombin time (PT) in platelet poor plasma by coagu lation assay 22.5 s 12.2-14.7 INR in platelet poor plasma or blood by coagulation as say 2.0 0.8-1.4 Activated partial thromboplastin time (a PTT) in platelet poor plasma bycoagulation assay - 08/08/16 11:00 Activated partial thromboplastin time (a PTT) in platelet poor plasma bycoagulation assay 45 s 24-35 Comprehensive metabolic panel - 08/08/16 11:00 Serum or plasma sodium measurement (moles/volume) 140 mmol/L 135-145 Serum or plasma potassium measurement (moles/volume) 4.1 mmol/L 3.6-5.0 Serum or plasma chloride measurement (moles/volume) 103 mmol/L 98-107 Carbon dioxide 27 mmol/L 21-32 Serum or plasma anion gap determination (moles/volume) 10 mmol/L 5-14 Serum or plasma urea nitrogen measurement (mass/volume ) 9 mg/dL 7-18 Serum or plasma creatinine measurement (mass/volume) 0.79 mg/dL 0.60-1.30 Serum or plasma urea nitrogen/creatinine mass ratio 11 NRG Serum or plasma creatinine measurement w ith calculation of estimated glomerular filtration rate > NRG Serum or plasma glucose measurement (mass/volume) 96 mg/dL 70-105 Serum or plasma calcium measurement (mass/volume) 9.5 mg/dL 8.5-10.1 Serum or plasma total bilirubin measurement (mass/volu me) 0.8 mg/dL 0.1-1.0 Serum or plasma alkaline phosphatase elida surement (enzymatic activity/volume) 79 U/L 40-136 Serum or plasma aspartate aminotransfera se measurement (enzymatic activity/volume) 26 U/L 5-34 Serum or plasma alanine aminotransferase measurement (enzymatic activity/volume) 27 U/L 0-55 Serum or plasma protein measurement (mass/volume) 7.3 g/dL 6.4-8.2 Serum or plasma albumin measurement (mass/volume) 4.4 g/dL 3.2-4.5 Lipid 1996 panel - 08/08/16 11:00 Serum or plasma triglyceride measurement (mass/volume) 278 mg/dL <150 Serum or plasma cholesterol measurement (mass/volume) 241 mg/dL < 200 Serum or plasma cholesterol in HDL measurement (mass/v olume) 34 mg/dL 40-60 Cholesterol in LDL [mass/volume] in serum or plasma by direct assay 165 mg/dL 1-129 Serum or plasma cholesterol in VLDL measurement (mass/ volume) 56 mg/dL 5-40 Methicillin resistant Staphylococcus aur eus (MRSA) screening culture - 08/08/16 11:00 Methicillin resistant Staphylococcus aureus (MRSA) scr eening culture NEG NRG PT panel in platelet poor plasma by coag ulation assay - 09/12/16 14:21 Prothrombin time (PT) in platelet poor plasma by coagu lation assay 27.0 s 12.2-14.7 INR in platelet poor plasma or blood by coagulation as say 2.5 0.8-1.4 Complete blood count (CBC) with automate d white blood cell (WBC) differential - 01/09/17 11:03 Blood leukocytes automated count (number/volume) 8.9 10*3/uL 4.3-11.0 Blood erythrocytes automated count (number/volume) 4.97 10*6/uL 4.35-5.85 Venous blood hemoglobin measurement (mass/volume) 14.6 g/dL 13.3-17.7 Blood hematocrit (volume fraction) 43 % 40-54 Automated erythrocyte mean corpuscular volume 86 [ foz_us] 80-99 Automated erythrocyte mean corpuscular h emoglobin (mass per erythrocyte) 29 pg 25-34 Automated erythrocyte mean corpuscular h emoglobin concentration measurement (mass/volume) 34 g/dL 32-36 Automated erythrocyte distribution width ratio 13. 7 % 10.0- 14.5 Automated blood platelet count (count/volume) 285 10*3/uL [...] 10*3 1.0-4.0 Blood monocytes automated count (number/volume) 1. 0 10*3 0.0-1.0 Automated eosinophil count 0.4 10*3/uL 0 .0-0.3 Automated blood basophil count (count/volume) 0.1 10*3/uL 0.0-0.1 Comprehensive metabolic panel - 01/09/17 11:03 Serum or plasma sodium measurement (moles/volume) 140 mmol/L 135-145 Serum or plasma potassium measurement (moles/volume) 4.5 mmol/L 3.6-5.0 Serum or plasma chloride measurement (moles/volume) 105 mmol/L 98-107 Carbon dioxide 27 mmol/L 21-32 Serum or plasma anion gap determination (moles/volume) 8 mmol/L 5-14 Serum or plasma urea nitrogen measurement (mass/volume ) 8 mg/dL 7-18 Serum or plasma creatinine measurement (mass/volume) 0.76 mg/dL 0.60-1.30 Serum or plasma urea nitrogen/creatinine mass ratio 11 NRG Serum or plasma creatinine measurement w ith calculation of estimated glomerular filtration rate > NRG Serum or plasma glucose measurement (mass/volume) 91 mg/dL 70-105 Serum or plasma calcium measurement (mass/volume) 8.9 mg/dL 8.5-10.1 Serum or plasma total bilirubin measurement (mass/volu me) 0.3 mg/dL 0.1-1.0 Serum or plasma alkaline phosphatase elida surement (enzymatic activity/volume) 61 U/L 40-136 Serum or plasma aspartate aminotransfera se measurement (enzymatic activity/volume) 24 U/L 5-34 Serum or plasma alanine aminotransferase measurement (enzymatic activity/volume) 18 U/L 0-55 Serum or plasma protein measurement (mass/volume) 6.4 g/dL 6.4-8.2 Serum or plasma albumin measurement (mass/volume) 3.9 g/dL 3.2-4.5 Lipase - 01/09/17 11:03 Lipase 14 U/L 8-78 PT panel in platelet poor plasma by coag ulation assay - 04/09/17 11:03 Prothrombin time (PT) in platelet poor plasma by coagu lation assay 25.0 s 12.2-14.7 INR in platelet poor plasma or blood by coagulation as say 2.3 0.8-1.4 PT panel in platelet poor plasma by coag ulation assay - 05/09/17 11:00 Prothrombin time (PT) in platelet poor plasma by coagu lation assay 20.4 s 12.2-14.7 INR in platelet poor plasma or blood by coagulation as say 1.7 0.8-1.4 PT panel in platelet poor plasma by coag ulation assay - 07/03/17 08:15 Prothrombin time (PT) in platelet poor plasma by coagu lation assay 28.3 s 12.2-14.7 INR in platelet poor plasma or blood by coagulation as say 2.7 0.8-1.4 Complete blood count (CBC) with automate d white blood cell (WBC) differential - 07/11/17 15:15 Blood leukocytes automated count (number/volume) 13.4 10*3/uL 4.3-11.0 Blood erythrocytes automated count (number/volume) 5.18 10*6/uL 4.35-5.85 Venous blood hemoglobin measurement (mass/volume) 15.5 g/dL 13.3-17.7 Blood hematocrit (volume fraction) 44 % 40-54 Automated erythrocyte mean corpuscular volume 86 [ foz_us] 80-99 Automated erythrocyte mean corpuscular h emoglobin (mass per erythrocyte) 30 pg 25-34 Automated erythrocyte mean corpuscular h emoglobin concentration measurement (mass/volume) 35 g/dL 32-36 Automated erythrocyte distribution width ratio 13. 7 % 10.0- 14.5 Automated blood platelet count (count/volume) 336 10*3/uL [...] 10*3 1.0-4.0 Blood monocytes automated count (number/volume) 1. 5 10*3 0.0-1.0 Automated eosinophil count 0.4 10*3/uL 0 .0-0.3 Automated blood basophil count (count/volume) 0.1 10*3/uL 0.0-0.1 Comprehensive metabolic panel - 07/11/17 15:15 Serum or plasma sodium measurement (moles/volume) 140 mmol/L 135-145 Serum or plasma potassium measurement (moles/volume) 3.5 mmol/L 3.6-5.0 Serum or plasma chloride measurement (moles/volume) 102 mmol/L 98-107 Carbon dioxide 27 mmol/L 21-32 Serum or plasma anion gap determination (moles/volume) 11 mmol/L 5-14 Serum or plasma urea nitrogen measurement (mass/volume ) 9 mg/dL 7-18 Serum or plasma creatinine measurement (mass/volume) 0.82 mg/dL 0.60-1.30 Serum or plasma urea nitrogen/creatinine mass ratio 11 NRG Serum or plasma creatinine measurement w ith calculation of estimated glomerular filtration rate > NRG Serum or plasma glucose measurement (mass/volume) 102 mg/dL 70-105 Serum or plasma calcium measurement (mass/volume) 9.4 mg/dL 8.5-10.1 Serum or plasma total bilirubin measurement (mass/volu me) 0.4 mg/dL 0.1-1.0 Serum or plasma alkaline phosphatase elida surement (enzymatic activity/volume) 78 U/L 40-136 Serum or plasma aspartate aminotransfera se measurement (enzymatic activity/volume) 17 U/L 5-34 Serum or plasma alanine aminotransferase measurement (enzymatic activity/volume) 17 U/L 0-55 Serum or plasma protein measurement (mass/volume) 7.6 g/dL 6.4-8.2 Serum or plasma albumin measurement (mass/volume) 4.3 g/dL 3.2-4.5 Magnesium - 07/11/17 15:15 Magnesium 2.1 mg/dL 1.8-2.4 PT panel in platelet poor plasma by coag ulation assay - 07/11/18 14:16 Prothrombin time (PT) in platelet poor plasma by coagu lation assay 13.8 s 12.2-14.7 INR in platelet poor plasma or blood by coagulation as say 1.1 0.8-1.4 Activated partial thromboplastin time (a PTT) in platelet poor plasma bycoagulation assay - 07/11/18 14:16 Activated partial thromboplastin time (a PTT) in platelet poor plasma bycoagulation assay 32 s 24-35 Serum or plasma troponin i.cardiac measu rement (mass/volume) - 07/11/17 15:15 Serum or plasma troponin i.cardiac measurement (mass/v olume) < ng/mL <0.30 Fibrin D-dimer FEU measurement in platel et poor plasma (mass/volume) - 07/11/17 15:15 Fibrin D-dimer FEU measurement in platelet poor plasma (mass/volume) 0.28 ug/mL 0.00-0.49 Myoglobin, serum - 07/11/17 15:15 Myoglobin, serum 31.5 ng/mL 10.0-92.0 Serum or plasma troponin i.cardiac measu rement (mass/volume) - 07/11/17 21:45 Serum or plasma troponin i.cardiac measurement (mass/v olume) 0.57 ng/mL <0.30 Complete blood count (CBC) with automate d white blood cell (WBC) differential - 07/12/17 05:24 Blood leukocytes automated count (number/volume) 15.1 10*3/uL 4.3-11.0 Blood erythrocytes automated count (number/volume) 4.61 10*6/uL 4.35-5.85 Venous blood hemoglobin measurement (mass/volume) 13.3 g/dL 13.3-17.7 Blood hematocrit (volume fraction) 40 % 40-54 Automated erythrocyte mean corpuscular volume 87 [ foz_us] 80-99 Automated erythrocyte mean corpuscular h emoglobin (mass per erythrocyte) 29 pg 25-34 Automated erythrocyte mean corpuscular h emoglobin concentration measurement (mass/volume) 33 g/dL 32-36 Automated erythrocyte distribution width ratio 13. 8 % 10.0- 14.5 Automated blood platelet count (count/volume) 278 10*3/uL [...] 10*3 1.0-4.0 Blood monocytes automated count (number/volume) 1. 2 10*3 0.0-1.0 Automated eosinophil count 0.0 10*3/uL 0 .0-0.3 Automated blood basophil count (count/volume) 0.0 10*3/uL 0.0-0.1 Comprehensive metabolic panel - 07/12/17 05:24 Serum or plasma sodium measurement (moles/volume) 137 mmol/L 135-145 Serum or plasma potassium measurement (moles/volume) 3.8 mmol/L 3.6-5.0 Serum or plasma chloride measurement (moles/volume) 103 mmol/L 98-107 Carbon dioxide 25 mmol/L 21-32 Serum or plasma anion gap determination (moles/volume) 9 mmol/L 5-14 Serum or plasma urea nitrogen measurement (mass/volume ) 8 mg/dL 7-18 Serum or plasma creatinine measurement (mass/volume) 0.67 mg/dL 0.60-1.30 Serum or plasma urea nitrogen/creatinine mass ratio 12 NRG Serum or plasma creatinine measurement w ith calculation of estimated glomerular filtration rate > NRG Serum or plasma glucose measurement (mass/volume) 123 mg/dL 70-105 Serum or plasma calcium measurement (mass/volume) 8.7 mg/dL 8.5-10.1 Serum or plasma total bilirubin measurement (mass/volu me) 0.7 mg/dL 0.1-1.0 Serum or plasma alkaline phosphatase elida surement (enzymatic activity/volume) 64 U/L 40-136 Serum or plasma aspartate aminotransfera se measurement (enzymatic activity/volume) 95 U/L 5-34 Serum or plasma alanine aminotransferase measurement (enzymatic activity/volume) 26 U/L 0-55 Serum or plasma protein measurement (mass/volume) 6.3 g/dL 6.4-8.2 Serum or plasma albumin measurement (mass/volume) 3.7 g/dL 3.2-4.5 Lipid 1996 panel - 07/12/17 05:24 Serum or plasma triglyceride measurement (mass/volume) 185 mg/dL <150 Serum or plasma cholesterol measurement (mass/volume) 192 mg/dL < 200 Serum or plasma cholesterol in HDL measurement (mass/v olume) 34 mg/dL 40-60 Cholesterol in LDL [mass/volume] in serum or plasma by direct assay 143 mg/dL 1-129 Serum or plasma cholesterol in VLDL measurement (mass/ volume) 37 mg/dL 5-40 Blood manual differential performed dete ction - 07/12/17 05:24 Blood monocytes/100 leukocytes 14 % NRG Manual blood segmented neutrophils/100 leukocytes 73 % NRG Blood band neutrophils/100 leukocytes 0 % NRG Manual blood lymphocytes/100 leukocytes 13 % NRG Blood erythrocyte morphology finding identification NORMAL NRG Automated blood complete blood count (he mogram) panel - 07/13/17 03:08 Blood leukocytes automated count (number/volume) 11.1 10*3/uL 4.3-11.0 Blood erythrocytes automated count (number/volume) 4.39 10*6/uL 4.35-5.85 Venous blood hemoglobin measurement (mass/volume) 12.8 g/dL 13.3-17.7 Blood hematocrit (volume fraction) 39 % 40-54 Automated erythrocyte mean corpuscular volume 88 [ foz_us] 80-99 Automated erythrocyte mean corpuscular h emoglobin (mass per erythrocyte) 29 pg 25-34 Automated erythrocyte mean corpuscular h emoglobin concentration measurement (mass/volume) 33 g/dL 32-36 Automated erythrocyte distribution width ratio 14. 0 % 10.0- 14.5 Automated blood platelet count (count/volume) 252 10*3/uL 130-400 Automated blood platelet mean volume measurement 9.6 [foz_us] 7.4-10.4 Whole blood basic metabolic panel - 06/26 04/11 03:08 Serum or plasma sodium measurement (moles/volume) 139 mmol/L 135-145 Serum or plasma potassium measurement (moles/volume) 4.0 mmol/L 3.6-5.0 Serum or plasma chloride measurement (moles/volume) 104 mmol/L 98-107 Carbon dioxide 27 mmol/L 21-32 Serum or plasma anion gap determination (moles/volume) 8 mmol/L 5-14 Serum or plasma urea nitrogen measurement (mass/volume ) 9 mg/dL 7-18 Serum or plasma creatinine measurement (mass/volume) 0.74 mg/dL 0.60-1.30 Serum or plasma urea nitrogen/creatinine mass ratio 12 NRG Serum or plasma creatinine measurement w ith calculation of estimated glomerular filtration rate > NRG Serum or plasma glucose measurement (mass/volume) 101 mg/dL 70-105 Serum or plasma calcium measurement (mass/volume) 8.8 mg/dL 8.5-10.1 PT panel in platelet poor plasma by coag ulation assay - 07/14/17 10:30 Prothrombin time (PT) in platelet poor plasma by coagu lation assay 14.2 s 12.2-14.7 INR in platelet poor plasma or blood by coagulation as say 1.1 0.8-1.4 PT panel in platelet poor plasma by coag ulation assay - 07/15/17 04:45 Prothrombin time (PT) in platelet poor plasma by coagu lation assay 15.5 s 12.2-14.7 INR in platelet poor plasma or blood by coagulation as say 1.2 0.8-1.4 Automated blood complete blood count (he mogram) panel - 08/09/17 09:29 Blood leukocytes automated count (number/volume) 7.4 10*3/uL 4.3-11.0 Blood erythrocytes automated count (number/volume) 4.80 10*6/uL 4.35-5.85 Venous blood hemoglobin measurement (mass/volume) 13.7 g/dL 13.3-17.7 Blood hematocrit (volume fraction) 42 % 40-54 Automated erythrocyte mean corpuscular volume 87 [ foz_us] 80-99 Automated erythrocyte mean corpuscular h emoglobin (mass per erythrocyte) 29 pg 25-34 Automated erythrocyte mean corpuscular h emoglobin concentration measurement (mass/volume) 33 g/dL 32-36 Automated erythrocyte distribution width ratio 13. 9 % 10.0- 14.5 Automated blood platelet count (count/volume) 291 10*3/uL 130-400 Automated blood platelet mean volume measurement 9.0 [foz_us] 7.4-10.4 Whole blood basic metabolic panel - 07/26 01/09 09:29 Serum or plasma sodium measurement (moles/volume) 142 mmol/L 135-145 Serum or plasma potassium measurement (moles/volume) 4.5 mmol/L 3.6-5.0 Serum or plasma chloride measurement (moles/volume) 105 mmol/L 98-107 Carbon dioxide 27 mmol/L 21-32 Serum or plasma anion gap determination (moles/volume) 10 mmol/L 5-14 Serum or plasma urea nitrogen measurement (mass/volume ) 16 mg/dL 7-18 Serum or plasma creatinine measurement (mass/volume) 0.74 mg/dL 0.60-1.30 Serum or plasma urea nitrogen/creatinine mass ratio 22 NRG Serum or plasma creatinine measurement w ith calculation of estimated glomerular filtration rate > NRG Serum or plasma glucose measurement (mass/volume) 100 mg/dL 70-105 Serum or plasma calcium measurement (mass/volume) 10.0 mg/dL 8.5-10.1 Complete blood count (CBC) with automate d white blood cell (WBC) differential - 09/15/17 12:45 Blood leukocytes automated count (number/volume) 18.3 10*3/uL 4.3-11.0 Blood erythrocytes automated count (number/volume) 4.57 10*6/uL 4.35-5.85 Venous blood hemoglobin measurement (mass/volume) 13.5 g/dL 13.3-17.7 Blood hematocrit (volume fraction) 40 % 40-54 Automated erythrocyte mean corpuscular volume 88 [ foz_us] 80-99 Automated erythrocyte mean corpuscular h emoglobin (mass per erythrocyte) 30 pg 25-34 Automated erythrocyte mean corpuscular h emoglobin concentration measurement (mass/volume) 34 g/dL 32-36 Automated erythrocyte distribution width ratio 14. 5 % 10.0- 14.5 Automated blood platelet count (count/volume) 357 10*3/uL [...] 10*3 1.0-4.0 Blood monocytes automated count (number/volume) 1. 1 10*3 0.0-1.0 Automated eosinophil count 0.2 10*3/uL 0 .0-0.3 Automated blood basophil count (count/volume) 0.0 10*3/uL 0.0-0.1 PT panel in platelet poor plasma by coag ulation assay - 09/15/17 12:45 Prothrombin time (PT) in platelet poor plasma by coagu lation assay 32.8 s 12.2-14.7 INR in platelet poor plasma or blood by coagulation as say 3.2 0.8-1.4 Whole blood basic metabolic panel - 08/27 09/12 12:45 Serum or plasma sodium measurement (moles/volume) 142 mmol/L 135-145 Serum or plasma potassium measurement (moles/volume) 3.6 mmol/L 3.6-5.0 Serum or plasma chloride measurement (moles/volume) 99 mmol/L 98-107 Carbon dioxide 28 mmol/L 21-32 Serum or plasma anion gap determination (moles/volume) 15 mmol/L 5-14 Serum or plasma urea nitrogen measurement (mass/volume ) 10 mg/dL 7-18 Serum or plasma creatinine measurement (mass/volume) 0.89 mg/dL 0.60-1.30 Serum or plasma urea nitrogen/creatinine mass ratio 11 NRG Serum or plasma creatinine measurement w ith calculation of estimated glomerular filtration rate > NRG Serum or plasma glucose measurement (mass/volume) 150 mg/dL 70-105 Serum or plasma calcium measurement (mass/volume) 9.6 mg/dL 8.5-10.1 Serum or plasma uric acid measurement (m ass/volume) - 09/15/17 12:45 Serum or plasma uric acid measurement (mass/volume) 5.3 mg/dL 2.6-7.2 Blood manual differential performed dete ction - 09/15/17 12:45 Blood monocytes/100 leukocytes 3 % NRG Manual blood segmented neutrophils/100 leukocytes 88 % NRG Blood band neutrophils/100 leukocytes 4 % NRG Manual blood lymphocytes/100 leukocytes 4 % NRG Manual eosinophils/100 leukocytes in nose 1 % NRG Manual blood basophils/100 leukocytes 0 % NRG Blood erythrocyte morphology finding identification NORMAL NRG Serum or plasma troponin i.cardiac measu rement (mass/volume) - 09/15/17 12:45 Serum or plasma troponin i.cardiac measurement (mass/v olume) < ng/mL <0.30 Serum or plasma C reactive protein measu rement (mass/volume) - 09/15/17 12:45 Serum or plasma C reactive protein measurement (mass/v olume) 0.80 mg/dL 0.00-0.50 Erythrocyte sedimentation rate by hector gren method - 09/15/17 12:45 Erythrocyte sedimentation rate by westergren method 13 mm 0- 15 Bacterial blood culture - 09/22/17 23:30 Bacterial blood culture NG [facility] Complete blood count (CBC) with automate d white blood cell (WBC) differential - 09/22/17 23:50 Blood leukocytes automated count (number/volume) 12.6 10*3/uL 4.3-11.0 Blood erythrocytes automated count (number/volume) 3.67 10*6/uL 4.35-5.85 Venous blood hemoglobin measurement (mass/volume) 10.6 g/dL 13.3-17.7 Blood hematocrit (volume fraction) 32 % 40-54 Automated erythrocyte mean corpuscular volume 87 [ foz_us] 80-99 Automated erythrocyte mean corpuscular h emoglobin (mass per erythrocyte) 29 pg 25-34 Automated erythrocyte mean corpuscular h emoglobin concentration measurement (mass/volume) 33 g/dL 32-36 Automated erythrocyte distribution width ratio 13. 8 % 10.0- 14.5 Automated blood platelet count (count/volume) 514 10*3/uL [...] 10*3 1.0-4.0 Blood monocytes automated count (number/volume) 1. 2 10*3 0.0-1.0 Automated eosinophil count 0.2 10*3/uL 0 .0-0.3 Automated blood basophil count (count/volume) 0.0 10*3/uL 0.0-0.1 Blood lactic acid measurement (moles/vol ume) - 09/22/17 23:50 Blood lactic acid measurement (moles/volume) 0.81 mmol/L 0.50-2.00 PT panel in platelet poor plasma by coag ulation assay - 09/22/17 23:50 Prothrombin time (PT) in platelet poor plasma by coagu lation assay 34.2 s 12.2-14.7 INR in platelet poor plasma or blood by coagulation as say 3.4 0.8-1.4 Activated partial thromboplastin time (a PTT) in platelet poor plasma bycoagulation assay - 09/22/17 23:50 Activated partial thromboplastin time (a PTT) in platelet poor plasma bycoagulation assay 124 s 24-35 Comprehensive metabolic panel - 09/22/17 23:50 Serum or plasma sodium measurement (moles/volume) 137 mmol/L 135-145 Serum or plasma potassium measurement (moles/volume) 3.8 mmol/L 3.6-5.0 Serum or plasma chloride measurement (moles/volume) 95 mmol/L 98-107 Carbon dioxide 29 mmol/L 21-32 Serum or plasma anion gap determination (moles/volume) 13 mmol/L 5-14 Serum or plasma urea nitrogen measurement (mass/volume ) 9 mg/dL 7-18 Serum or plasma creatinine measurement (mass/volume) 0.76 mg/dL 0.60-1.30 Serum or plasma urea nitrogen/creatinine mass ratio 12 NRG Serum or plasma creatinine measurement w ith calculation of estimated glomerular filtration rate > NRG Serum or plasma glucose measurement (mass/volume) 115 mg/dL 70-105 Serum or plasma calcium measurement (mass/volume) 9.6 mg/dL 8.5-10.1 Serum or plasma total bilirubin measurement (mass/volu me) 0.4 mg/dL 0.1-1.0 Serum or plasma alkaline phosphatase elida surement (enzymatic activity/volume) 80 U/L 40-136 Serum or plasma aspartate aminotransfera se measurement (enzymatic activity/volume) 21 U/L 5-34 Serum or plasma alanine aminotransferase measurement (enzymatic activity/volume) 19 U/L 0-55 Serum or plasma protein measurement (mass/volume) 7.8 g/dL 6.4-8.2 Serum or plasma albumin measurement (mass/volume) 3.5 g/dL 3.2-4.5 Serum or plasma C reactive protein measu rement (mass/volume) - 09/22/17 23:50 Serum or plasma C reactive protein measurement (mass/v olume) 34.60 mg/dL 0.00-0.50 Erythrocyte sedimentation rate by hector gren method - 09/22/17 23:50 Erythrocyte sedimentation rate by westergren method > mm 0- 15 Bacterial blood culture - 09/22/17 23:50 Bacterial blood culture NG NRG PT panel in platelet poor plasma by coag ulation assay - 09/23/17 05:26 Prothrombin time (PT) in platelet poor plasma by coagu lation assay 37.3 s 12.2-14.7 INR in platelet poor plasma or blood by coagulation as say 3.8 0.8-1.4 Activated partial thromboplastin time (a PTT) in platelet poor plasma bycoagulation assay - 09/23/17 05:26 Activated partial thromboplastin time (a PTT) in platelet poor plasma bycoagulation assay 116 s 24-35 Complete blood count (CBC) with automate d white blood cell (WBC) differential - 09/23/17 05:26 Blood leukocytes automated count (number/volume) 11.4 10*3/uL 4.3-11.0 Blood erythrocytes automated count (number/volume) 3.34 10*6/uL 4.35-5.85 Venous blood hemoglobin measurement (mass/volume) 9.7 g/dL 13.3-17.7 Blood hematocrit (volume fraction) 29 % 40-54 Automated erythrocyte mean corpuscular volume 88 [ foz_us] 80-99 Automated erythrocyte mean corpuscular h emoglobin (mass per erythrocyte) 29 pg 25-34 Automated erythrocyte mean corpuscular h emoglobin concentration measurement (mass/volume) 33 g/dL 32-36 Automated erythrocyte distribution width ratio 13. 7 % 10.0- 14.5 Automated blood platelet count (count/volume) 487 10*3/uL [...] 10*3 1.0-4.0 Blood monocytes automated count (number/volume) 1. 4 10*3 0.0-1.0 Automated eosinophil count 0.3 10*3/uL 0 .0-0.3 Automated blood basophil count (count/volume) 0.0 10*3/uL 0.0-0.1 Comprehensive metabolic panel - 09/23/17 05:26 Serum or plasma sodium measurement (moles/volume) 141 mmol/L 135-145 Serum or plasma potassium measurement (moles/volume) 3.4 mmol/L 3.6-5.0 Serum or plasma chloride measurement (moles/volume) 98 mmol/L 98-107 Carbon dioxide 29 mmol/L 21-32 Serum or plasma anion gap determination (moles/volume) 14 mmol/L 5-14 Serum or plasma urea nitrogen measurement (mass/volume ) 8 mg/dL 7-18 Serum or plasma creatinine measurement (mass/volume) 0.68 mg/dL 0.60-1.30 Serum or plasma urea nitrogen/creatinine mass ratio 12 NRG Serum or plasma creatinine measurement w ith calculation of estimated glomerular filtration rate > NRG Serum or plasma glucose measurement (mass/volume) 92 mg/dL 70-105 Serum or plasma calcium measurement (mass/volume) 9.3 mg/dL 8.5-10.1 Serum or plasma total bilirubin measurement (mass/volu me) 0.4 mg/dL 0.1-1.0 Serum or plasma alkaline phosphatase elida surement (enzymatic activity/volume) 78 U/L 40-136 Serum or plasma aspartate aminotransfera se measurement (enzymatic activity/volume) 17 U/L 5-34 Serum or plasma alanine aminotransferase measurement (enzymatic activity/volume) 17 U/L 0-55 Serum or plasma protein measurement (mass/volume) 7.0 g/dL 6.4-8.2 Serum or plasma albumin measurement (mass/volume) 3.2 g/dL 3.2-4.5 Complete blood count (CBC) with automate d white blood cell (WBC) differential - 09/24/17 07:07 Blood leukocytes automated count (number/volume) 10.4 10*3/uL 4.3-11.0 Blood erythrocytes automated count (number/volume) 3.93 10*6/uL 4.35-5.85 Venous blood hemoglobin measurement (mass/volume) 11.3 g/dL 13.3-17.7 Blood hematocrit (volume fraction) 34 % 40-54 Automated erythrocyte mean corpuscular volume 87 [ z_us] 80-99 Automated erythrocyte mean corpuscular h emoglobin (mass per erythrocyte) 29 pg 25-34 Automated erythrocyte mean corpuscular h emoglobin concentration measurement (mass/volume) 33 g/dL 32-36 Automated erythrocyte distribution width ratio 14. 0 % 10.0- 14.5 Automated blood platelet count (count/volume) 570 10*3/uL [...] 10*3 1.0-4.0 Blood monocytes automated count (number/volume) 0. 5 10*3 0.0-1.0 Automated eosinophil count 0.2 10*3/uL 0 .0-0.3 Automated blood basophil count (count/volume) 0.0 10*3/uL 0.0-0.1 PT panel in platelet poor plasma by coag ulation assay - 09/24/17 07:07 Prothrombin time (PT) in platelet poor plasma by coagu lation assay 32.3 s 12.2-14.7 INR in platelet poor plasma or blood by coagulation as say 3.2 0.8-1.4 Comprehensive metabolic panel - 09/24/17 07:07 Serum or plasma sodium measurement (moles/volume) 141 mmol/L 135-145 Serum or plasma potassium measurement (moles/volume) 3.6 mmol/L 3.6-5.0 Serum or plasma chloride measurement (moles/volume) 99 mmol/L 98-107 Carbon dioxide 29 mmol/L 21-32 Serum or plasma anion gap determination (moles/volume) 13 mmol/L 5-14 Serum or plasma urea nitrogen measurement (mass/volume ) 7 mg/dL 7-18 Serum or plasma creatinine measurement (mass/volume) 0.71 mg/dL 0.60-1.30 Serum or plasma urea nitrogen/creatinine mass ratio 10 NRG Serum or plasma creatinine measurement w ith calculation of estimated glomerular filtration rate > NRG Serum or plasma glucose measurement (mass/volume) 139 mg/dL 70-105 Serum or plasma calcium measurement (mass/volume) 9.8 mg/dL 8.5-10.1 Serum or plasma total bilirubin measurement (mass/volu me) 0.4 mg/dL 0.1-1.0 Serum or plasma alkaline phosphatase elida surement (enzymatic activity/volume) 90 U/L 40-136 Serum or plasma aspartate aminotransfera se measurement (enzymatic activity/volume) 22 U/L 5-34 Serum or plasma alanine aminotransferase measurement (enzymatic activity/volume) 21 U/L 0-55 Serum or plasma protein measurement (mass/volume) 7.6 g/dL 6.4-8.2 Serum or plasma albumin measurement (mass/volume) 3.5 g/dL 3.2-4.5 Vancomycin trough - 09/24/17 07:07 Vancomycin trough 13.6 ug/mL 10.0-20.0 Complete blood count (CBC) with automate d white blood cell (WBC) differential - 09/25/17 05:20 Blood leukocytes automated count (number/volume) 10.5 10*3/uL 4.3-11.0 Blood erythrocytes automated count (number/volume) 3.74 10*6/uL 4.35-5.85 Venous blood hemoglobin measurement (mass/volume) 10.8 g/dL 13.3-17.7 Blood hematocrit (volume fraction) 33 % 40-54 Automated erythrocyte mean corpuscular volume 88 [ foz_us] 80-99 Automated erythrocyte mean corpuscular h emoglobin (mass per erythrocyte) 29 pg 25-34 Automated erythrocyte mean corpuscular h emoglobin concentration measurement (mass/volume) 33 g/dL 32-36 Automated erythrocyte distribution width ratio 14. 2 % 10.0- 14.5 Automated blood platelet count (count/volume) 631 10*3/uL [...] 10*3 1.0-4.0 Blood monocytes automated count (number/volume) 1. 0 10*3 0.0-1.0 Automated eosinophil count 0.2 10*3/uL 0 .0-0.3 Automated blood basophil count (count/volume) 0.0 10*3/uL 0.0-0.1 Comprehensive metabolic panel - 09/25/17 05:20 Serum or plasma sodium measurement (moles/volume) 141 mmol/L 135-145 Serum or plasma potassium measurement (moles/volume) 3.6 mmol/L 3.6-5.0 Serum or plasma chloride measurement (moles/volume) 98 mmol/L 98-107 Carbon dioxide 30 mmol/L 21-32 Serum or plasma anion gap determination (moles/volume) 13 mmol/L 5-14 Serum or plasma urea nitrogen measurement (mass/volume ) 7 mg/dL 7-18 Serum or plasma creatinine measurement (mass/volume) 0.70 mg/dL 0.60-1.30 Serum or plasma urea nitrogen/creatinine mass ratio 10 NRG Serum or plasma creatinine measurement w ith calculation of estimated glomerular filtration rate > NRG Serum or plasma glucose measurement (mass/volume) 109 mg/dL 70-105 Serum or plasma calcium measurement (mass/volume) 9.6 mg/dL 8.5-10.1 Serum or plasma total bilirubin measurement (mass/volu me) 0.4 mg/dL 0.1-1.0 Serum or plasma alkaline phosphatase elida surement (enzymatic activity/volume) 78 U/L 40-136 Serum or plasma aspartate aminotransfera se measurement (enzymatic activity/volume) 24 U/L 5-34 Serum or plasma alanine aminotransferase measurement (enzymatic activity/volume) 24 U/L 0-55 Serum or plasma protein measurement (mass/volume) 7.5 g/dL 6.4-8.2 Serum or plasma albumin measurement (mass/volume) 3.3 g/dL 3.2-4.5 PT panel in platelet poor plasma by coag ulation assay - 09/25/17 05:20 Prothrombin time (PT) in platelet poor plasma by coagu lation assay 29.6 s 12.2-14.7 INR in platelet poor plasma or blood by coagulation as say 2.8 0.8-1.4 Automated blood complete blood count (he mogram) panel - 10/24/17 11:06 Blood leukocytes automated count (number/volume) 14.3 10*3/uL 4.3-11.0 Blood erythrocytes automated count (number/volume) 5.13 10*6/uL 4.35-5.85 Venous blood hemoglobin measurement (mass/volume) 14.2 g/dL 13.3-17.7 Blood hematocrit (volume fraction) 44 % 40-54 Automated erythrocyte mean corpuscular volume 85 [ foz_us] 80-99 Automated erythrocyte mean corpuscular h emoglobin (mass per erythrocyte) 28 pg 25-34 Automated erythrocyte mean corpuscular h emoglobin concentration measurement (mass/volume) 33 g/dL 32-36 Automated erythrocyte distribution width ratio 16. 2 % 10.0- 14.5 Automated blood platelet count (count/volume) 391 10*3/uL 130-400 Automated blood platelet mean volume measurement 8.6 [foz_us] 7.4-10.4 Serum or plasma uric acid measurement (m ass/volume) - 10/24/17 11:06 Serum or plasma uric acid measurement (mass/volume) 3.4 mg/dL 2.6-7.2 Serum or plasma C reactive protein measu rement (mass/volume) - 10/24/17 11:06 Serum or plasma C reactive protein measurement (mass/v olume) 0.31 mg/dL 0.00-0.50 Complete blood count (CBC) with automate d white blood cell (WBC) differential - 07/11/18 14:16 Blood leukocytes automated count (number/volume) 10.7 10*3/uL 4.3-11.0 Blood erythrocytes automated count (number/volume) 5.04 10*6/uL 4.35-5.85 Venous blood hemoglobin measurement (mass/volume) 14.9 g/dL 13.3-17.7 Blood hematocrit (volume fraction) 44 % 40-54 Automated erythrocyte mean corpuscular volume 88 [ foz_us] 80-99 Automated erythrocyte mean corpuscular h emoglobin (mass per erythrocyte) 30 pg 25-34 Automated erythrocyte mean corpuscular h emoglobin concentration measurement (mass/volume) 34 g/dL 32-36 Automated erythrocyte distribution width ratio 14. 0 % 10.0- 14.5 Automated blood platelet count (count/volume) 362 10*3/uL [...] 10*3 1.0-4.0 Blood monocytes automated count (number/volume) 1. 2 10*3 0.0-1.0 Automated eosinophil count 0.3 10*3/uL 0 .0-0.3 Automated blood basophil count (count/volume) 0.0 10*3/uL 0.0-0.1 Comprehensive metabolic panel - 07/11/18 14:16 Serum or plasma sodium measurement (moles/volume) 139 mmol/L 135-145 Serum or plasma potassium measurement (moles/volume) 3.5 mmol/L 3.6-5.0 Serum or plasma chloride measurement (moles/volume) 100 mmol/L 98-107 Carbon dioxide 29 mmol/L 21-32 Serum or plasma anion gap determination (moles/volume) 10 mmol/L 5-14 Serum or plasma urea nitrogen measurement (mass/volume ) 8 mg/dL 7-18 Serum or plasma creatinine measurement (mass/volume) 0.80 mg/dL 0.60-1.30 Serum or plasma urea nitrogen/creatinine mass ratio 10 NRG Serum or plasma creatinine measurement w ith calculation of estimated glomerular filtration rate > NRG Serum or plasma glucose measurement (mass/volume) 120 mg/dL 70-105 Serum or plasma calcium measurement (mass/volume) 9.8 mg/dL 8.5-10.1 Serum or plasma total bilirubin measurement (mass/volu me) 0.4 mg/dL 0.1-1.0 Serum or plasma alkaline phosphatase elida surement (enzymatic activity/volume) 96 U/L 40-136 Serum or plasma aspartate aminotransfera se measurement (enzymatic activity/volume) 32 U/L 5-34 Serum or plasma alanine aminotransferase measurement (enzymatic activity/volume) 32 U/L 0-55 Serum or plasma protein measurement (mass/volume) 7.5 g/dL 6.4-8.2 Serum or plasma albumin measurement (mass/volume) 4.5 g/dL 3.2-4.5 CALCIUM CORRECTED 9.4 mg/dL 8.5-10.1 Magnesium - 07/11/18 14:16 Magnesium 2.1 mg/dL 1.8-2.4 Myoglobin, serum - 07/11/18 14:16 Myoglobin, serum 21.2 ng/mL 10.0-92.0 Serum or plasma troponin i.cardiac measu rement (mass/volume) - 07/11/18 14:16 Serum or plasma troponin i.cardiac measurement (mass/v olume) < ng/mL <0.30 Lipase - 07/11/18 14:16 Lipase 11 U/L 8-78 Myoglobin, serum - 07/11/18 14:16 Myoglobin, serum 21.2 ng/mL 10.0-92.0 Lipase - 07/11/18 14:16 Lipase 11 U/L 8-78 Serum or plasma troponin i.cardiac measu rement (mass/volume) - 07/11/18 16:34 Serum or plasma troponin i.cardiac measurement (mass/v olume) < ng/mL <0.30 Myoglobin, serum - 07/11/18 16:34 Myoglobin, serum 238.6 ng/mL 10.0-92.0 Serum or plasma creatine kinase measurem ent (enzymatic activity/volume) - 07/11/18 19:34 Serum or plasma creatine kinase measurem ent (enzymatic activity/volume) 206 U/L 30-200 Serum or plasma troponin i.cardiac measu rement (mass/volume) - 07/11/18 19:34 Serum or plasma troponin i.cardiac measurement (mass/v olume) 0.48 ng/mL <0.30 Myoglobin, serum - 07/11/18 19:34 Myoglobin, serum 459.1 ng/mL 10.0-92.0 Activated partial thromboplastin time (a PTT) in platelet poor plasma bycoagulation assay - 07/11/18 22:27 Activated partial thromboplastin time (a PTT) in platelet poor plasma bycoagulation assay 137 s 24-35 Complete blood count (CBC) with automate d white blood cell (WBC) differential - 07/12/18 02:55 Blood leukocytes automated count (number/volume) 11.0 10*3/uL 4.3-11.0 Blood erythrocytes automated count (number/volume) 4.60 10*6/uL 4.35-5.85 Venous blood hemoglobin measurement (mass/volume) 13.4 g/dL 13.3-17.7 Blood hematocrit (volume fraction) 41 % 40-54 Automated erythrocyte mean corpuscular volume 88 [ foz_us] 80-99 Automated erythrocyte mean corpuscular h emoglobin (mass per erythrocyte) 29 pg 25-34 Automated erythrocyte mean corpuscular h emoglobin concentration measurement (mass/volume) 33 g/dL 32-36 Automated erythrocyte distribution width ratio 13. 7 % 10.0- 14.5 Automated blood platelet count (count/volume) 303 10*3/uL 130-400 Automated blood platelet mean volume measurement 9.4 [foz_us] 7.4-10.4 Automated blood neutrophils/100 leukocytes 71 % 42-75 Automated blood lymphocytes/100 leukocytes 19 % 12-44 Blood monocytes/100 leukocytes 8 % 0-12 Automated blood eosinophils/100 leukocytes 2 % 0-10 Automated blood basophils/100 leukocytes 0 % 0-10 Blood neutrophils automated count (number/volume) 7.8 10*3 1.8-7.8 Blood lymphocytes automated count (number/volume) 2.1 10*3 1.0-4.0 Blood monocytes automated count (number/volume) 0. 9 10*3 0.0-1.0 Automated eosinophil count 0.2 10*3/uL 0 .0-0.3 Automated blood basophil count (count/volume) 0.0 10*3/uL 0.0-0.1 Activated partial thromboplastin time (a PTT) in platelet poor plasma bycoagulation assay - 07/12/18 02:55 Activated partial thromboplastin time (a PTT) in platelet poor plasma bycoagulation assay 48 s 24-35 Comprehensive metabolic panel - 07/12/18 02:55 Serum or plasma sodium measurement (moles/volume) 140 mmol/L 135-145 Serum or plasma potassium measurement (moles/volume) 3.9 mmol/L 3.6-5.0 Serum or plasma chloride measurement (moles/volume) 102 mmol/L 98-107 Carbon dioxide 28 mmol/L 21-32 Serum or plasma anion gap determination (moles/volume) 10 mmol/L 5-14 Serum or plasma urea nitrogen measurement (mass/volume ) 8 mg/dL 7-18 Serum or plasma creatinine measurement (mass/volume) 0.76 mg/dL 0.60-1.30 Serum or plasma urea nitrogen/creatinine mass ratio 11 NRG Serum or plasma creatinine measurement w ith calculation of estimated glomerular filtration rate > NRG Serum or plasma glucose measurement (mass/volume) 123 mg/dL 70-105 Serum or plasma calcium measurement (mass/volume) 9.3 mg/dL 8.5-10.1 Serum or plasma total bilirubin measurement (mass/volu me) 0.6 mg/dL 0.1-1.0 Serum or plasma alkaline phosphatase elida surement (enzymatic activity/volume) 86 U/L 40-136 Serum or plasma aspartate aminotransfera se measurement (enzymatic activity/volume) 59 U/L 5-34 Serum or plasma alanine aminotransferase measurement (enzymatic activity/volume) 32 U/L 0-55 Serum or plasma protein measurement (mass/volume) 6.6 g/dL 6.4-8.2 Serum or plasma albumin measurement (mass/volume) 4.0 g/dL 3.2-4.5 CALCIUM CORRECTED 9.3 mg/dL 8.5-10.1 Lipid 1996 panel - 07/12/18 02:55 Serum or plasma triglyceride measurement (mass/volume) 104 mg/dL <150 Serum or plasma cholesterol measurement (mass/volume) 128 mg/dL < 200 Serum or plasma cholesterol in HDL measurement (mass/v olume) 28 mg/dL 40-60 Cholesterol in LDL [mass/volume] in serum or plasma by direct assay 87 mg/dL 1-129 Serum or plasma cholesterol in VLDL measurement (mass/ volume) 21 mg/dL 5-40 Serum or plasma troponin i.cardiac measu rement (mass/volume) - 07/12/18 02:55 Serum or plasma troponin i.cardiac measurement (mass/v olume) 3.39 ng/mL <0.30 Myoglobin, serum - 07/12/18 02:55 Myoglobin, serum 175.2 ng/mL 10.0-92.0 Activated partial thromboplastin time (a PTT) in platelet poor plasma bycoagulation assay - 07/12/18 07:55 Activated partial thromboplastin time (a PTT) in platelet poor plasma bycoagulation assay 46 s 24-35 Automated blood complete blood count (he mogram) panel - 07/13/18 03:05 Blood leukocytes automated count (number/volume) 8.8 10*3/uL 4.3-11.0 Blood erythrocytes automated count (number/volume) 4.45 10*6/uL 4.35-5.85 Venous blood hemoglobin measurement (mass/volume) 12.8 g/dL 13.3-17.7 Blood hematocrit (volume fraction) 40 % 40-54 Automated erythrocyte mean corpuscular volume 89 [ foz_us] 80-99 Automated erythrocyte mean corpuscular h emoglobin (mass per erythrocyte) 29 pg 25-34 Automated erythrocyte mean corpuscular h emoglobin concentration measurement (mass/volume) 32 g/dL 32-36 Automated erythrocyte distribution width ratio 13. 9 % 10.0- 14.5 Automated blood platelet count (count/volume) 297 10*3/uL 130-400 Automated blood platelet mean volume measurement 9.4 [foz_us] 7.4-10.4 Whole blood basic metabolic panel - 06/26 04/12 03:05 Serum or plasma sodium measurement (moles/volume) 141 mmol/L 135-145 Serum or plasma potassium measurement (moles/volume) 3.9 mmol/L 3.6-5.0 Serum or plasma chloride measurement (moles/volume) 105 mmol/L 98-107 Carbon dioxide 27 mmol/L 21-32 Serum or plasma anion gap determination (moles/volume) 9 mmol/L 5-14 Serum or plasma urea nitrogen measurement (mass/volume ) 6 mg/dL 7-18 Serum or plasma creatinine measurement (mass/volume) 0.76 mg/dL 0.60-1.30 Serum or plasma urea nitrogen/creatinine mass ratio 8 NRG Serum or plasma creatinine measurement w ith calculation of estimated glomerular filtration rate > NRG Serum or plasma glucose measurement (mass/volume) 101 mg/dL 70-105 Serum or plasma calcium measurement (mass/volume) 8.9 mg/dL 8.5-10.1 Complete blood count (CBC) with automate d white blood cell (WBC) differential - 09/26/18 09:30 Blood leukocytes automated count (number/volume) 11.2 10*3/uL 4.3-11.0 Blood erythrocytes automated count (number/volume) 4.55 10*6/uL 4.35-5.85 Venous blood hemoglobin measurement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
[2019-12-03] MEDS ORDERED: ASPIRIN 81 MG CHEW (CHILDREN'S ASA) ONE (20:24)
[2019-12-03] MEDS ORDERED: NS IV 1000 ML 1,000 ML ONE (20:25)
[2019-12-03] MEDS ORDERED: NS IV 1000 ML 1,000 ML IV SCH ×2 (20:26→21:20)
[2019-12-03] MEDS ORDERED: RT-ALBUTEROL/IPRATROPIUM 3 ML (DUONEB) VIAL INH ONE (20:30)
[2019-12-03] MEDS ORDERED: ASPIRIN 81 MG CHEW (CHILDREN'S ASA) PO ONE (20:30)
--- NOTE | 2019-12-03 20:37 | ED GI ---
General Chief Complaint: Abdominal/GI Problems Stated Complaint: VOMITING Source of Information: Patient Exam Limitations: No Limitations History of Present Illness Date Seen by Provider: Dec 03, 2019 Time Seen by Provider: 20:20 Initial Comments Patient presents ER by private conveyance because he thought he might of had a small heart attack. He says about an hour prior to arrival he had 15 minutes of sweats, nausea vomiting without fever chills or new cough. He has a chronic cough because he smokes between 3 and 4 packs of cigarettes per day. He denies using any breathing treatments or history of COPD. He does not follow with a primary care doctor but he does follow with Dr. 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 He denies any chest pain. He said the symptoms went away after 15 minutes is not having any symptoms presently. 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 He is also [facility]. He denies a history of diabetes. He is not certain if he takes statins or not. He says his handles his medications. Discussed the case with his Yazmin over the telephone. She relates that he tried to take something for his pain but was unsuccessful because of his nausea and vomiting. She relates the med list of Plavix, metoprolol 50 mg twice a day, allopurinol 300 mg daily, aspirin 81 mg daily, Imdur 30 mg daily, Lipitor, gabapentin 600 mg 4 times a day, Protonix 40 mg daily. Prior to coming to the ER they called the on-call fruit grader operator Dr. Alcocer he recommended come to the ER to be worked up. Allergies and Home Medications Allergies Coded Allergies: Penicillins (Unverified Allergy, Mild, 01/27/09) Home Medications Allopurinol 100 Mg Tablet, 100 MG PO DAILY, (Reported) Aspirin 81 Mg Tablet., 81 MG PO HS, (Reported) Atorvastatin Calcium 40 Mg Tablet, 40 MG PO HS, (Reported) LAST FILLED #90 01-16-19 Carisoprodol 350 Mg Tablet, 350 MG PO HS, (Reported) Clopidogrel Bisulfate 75 Mg Tablet, 75 MG PO DAILY, (Reported) Gabapentin 600 Mg Tablet, 600 MG PO QID, (Reported) LAST FILLED #120 04-22-19 Isosorbide Mononitrate 30 Mg Tab.er.24h, 30 MG PO DAILY, (Reported) Metoprolol Tartrate 50 Mg Tablet, 50 MG PO BID, (Reported) [place] 3 Polyunsat Fatty Acids 1,000 Mg Cap, 1,000 MG PO BID, (Reported) Omeprazole Magnesium 20 Mg Tablet.dr, 40 MG PO DAILY, (Reported) TAKES 2 (20MG) TABLETS Varenicline Tartrate 1 Each Tab.ds.pk, 1 EACH PO BID Prescribed by: JEFFERY RHOADES on 06/15/19 0951 Patient Home Medication List Home Medication List Reviewed: Yes Review of Systems Review of Systems Constitutional: No chills, No fever, No malaise EENTM: No Blurred Vision, No Double Vision Respiratory: Cough (chronic only nonproductive); Denies Shortness of Air, Denies Wheezing Cardiovascular: Denies Chest Pain, Denies Lightheadedness Gastrointestinal: Denies Abdomen Distended, Denies Abdominal Pain, Denies Blood Streaked Stools, Denies Constipated, Denies Diarrhea; Nausea; Denies Poor Appetite, Denies Poor Fluid Intake; Vomiting Genitourinary: Denies Burning, Denies Discharge Musculoskeletal: No back pain, No joint pain Skin: No pruritus, No rash Psychiatric/Neurological: Denies Headache, Denies Numbness All Other Systems Reviewed Negative Unless Noted: Yes Past Dfqlimt-Nedxiu-Rshijl Hx Patient Social History Alcohol Use: Denies Use Recreational Drug Use: No Smoking Status: Current Everyday Smoker Type Used: Cigarettes (3 pack per day) 2nd Hand Smoke Exposure: No Recent Foreign Travel: No Contact w/Someone Who Travel: No Recent Hopitalizations: No Immunizations Up To Date PED Vaccines UTD: Yes Date of Pneumonia Vaccine: Jul 28, 2012 Date of Influenza Vaccine: Sep 25, 2018 Seasonal Allergies Seasonal Allergies: No Past Medical History Surgeries: Yes (CARDIAC CATHS--STENTS X 1. LAST CATH 07/11/17 WITH STENT X 1) Amputation, Cardiac, Coronary Stent, Orthopedic Respiratory: Yes Pulmonary Embolism Currently Using CPAP: No Currently Using BIPAP: No Cardiac: Yes (ND X 2; STENTS X 4; -NSTEMI 07/11/17 WITH 1 STENT PLACED) Coronary Artery Disease, Deep Vein Thrombosis, Heart Attack, High Cholesterol, Hypertension Neurological: No Reproductive Disorders: No Genitourinary: No Gastrointestinal: Yes Gastroesophageal Reflux Musculoskeletal: Yes (HYDROCODONE + IBUPROFEN DAILY) Amputee, Chronic Back Pain, Gout Endocrine: No HEENT: No Cancer: No Psychosocial: No Integumentary: No Blood Disorders: Yes (PROTEIN S DEFICIENCY--DVT'S AND P.E.'S AND ND X 2) Family Medical History Arthritis G8 BROTHER Blood clots 19 MOTHER ( of blood clot) Cardiac disorder 19 FATHER Diabetes mellitus G8 BROTHER FH: cancer paternal grandmother FHx: inflammatory bowel disease G8 BROTHER No Family History of: FH: sudden cardiac (SCD) Heart Disease, Vascular Disease Physical Exam Vital Signs Vital Signs - First Documented 12/03/19 20:19 Temp 37.2 Pulse 101 Resp 20 B/P (MAP) 152/92 (112) Pulse Ox 96 O2 Delivery Nasal Cannula O2 Flow Rate 2.00 Capillary Refill : Height/Weight/BMI Height: 5'4.00" Weight: 190lbs. 1.6oz. [id number]; 38.00 BMI Method:Stated General Appearance: WD/WN, no apparent distress HEENT: PERRL/EOMI, TMs normal, pharynx normal Neck: full range of motion, normal inspection Respiratory: no accessory muscle use, respiratory distress (oxygen sats of 85% on room air), decreased breath sounds, wheezing (bilateral moderate to extensive) Cardiovascular: normal peripheral pulses, regular rate, rhythm Gastrointestinal: normal bowel sounds, non tender, soft Extremities: normal range of motion, normal capillary refill, other (left leg AKA) Neurologic/Psychiatric: alert, oriented x 3 Skin: normal color, warm/dry Focused Exam Sepsis Stage: Ruled Out Reason for ruling out sepsis: no productive cough, fever nor evidence of infec tion on chest x-ray or labs Lactate Level 12/03/19 20:25: Lactic Acid Level 1.29 Lactic Acid Level Laboratory Tests Test 12/03/19 20:25 Lactic Acid Level 1.29 MMOL/L (0.50-2.00) Progress/Results/Core Measures Results/Orders Lab Results Laboratory Tests Test 12/03/19 20:25 12/03/19 20:43 12/03/19 21:01 Range/Units White Blood Count 11.4 H 4.3-11.0 10^3/uL Red Blood Count 5.60 4.35-5.85 10^6/uL Hemoglobin 15.9 13.3-17.7 G/DL Hematocrit 50 40-54 % Mean Corpuscular Volume 89 80-99 FL Mean Corpuscular Hemoglobin 28 25-34 PG Mean Corpuscular Hemoglobin Concent 32 32-36 G/DL Red Cell Distribution Width 16.0 H 10.0-14.5 % Platelet Count 240 130-400 10^3/uL Mean Platelet Volume 9.3 7.4-10.4 FL Neutrophils (%) (Auto) 79 H 42-75 % Lymphocytes (%) (Auto) 13 12-44 % Monocytes (%) (Auto) 6 0-12 % Eosinophils (%) (Auto) 2 0-10 % Basophils (%) (Auto) 0 0-10 % Neutrophils # (Auto) 9.0 H 1.8-7.8 X 10^3 Lymphocytes # (Auto) 1.5 1.0-4.0 X 10^3 Monocytes # (Auto) 0.7 0.0-1.0 X 10^3 Eosinophils # (Auto) 0.2 0.0-0.3 10^3/uL Basophils # (Auto) 0.0 0.0-0.1 10^3/uL Prothrombin Time 12.7 12.2-14.7 SEC INR Comment 0.9 0.8-1.4 Activated Partial Thromboplast Time 31 24-35 SEC D-Dimer 0.50 H 0.00-0.49 UG/ML Sodium Level 138 135-145 MMOL/L Potassium Level 3.5 L 3.6-5.0 MMOL/L Chloride Level 96 L 98-107 MMOL/L Carbon Dioxide Level 30 21-32 MMOL/L Anion Gap 12 5-14 MMOL/L Blood Urea Nitrogen 5 L 7-18 MG/DL Creatinine 0.90 0.60-1.30 MG/DL Estimat Glomerular Filtration Rate > 60 BUN/Creatinine Ratio 6 Glucose Level 139 H 70-105 MG/DL Lactic Acid Level 1.29 0.50-2.00 MMOL/L Calcium Level 9.4 8.5-10.1 MG/DL Corrected Calcium 9.2 8.5-10.1 MG/DL Magnesium Level 1.9 1.6-2.4 MG/DL Total Bilirubin 0.4 0.1-1.0 MG/DL Aspartate Amino Transf (AST/SGOT) 18 5-34 U/L Alanine Aminotransferase (ALT/SGPT) 12 0-55 U/L Alkaline Phosphatase 111 40-136 U/L Myoglobin 46.6 10.0-92.0 NG/ML Troponin I < 0.028 <0.028 NG/ML B-Type Natriuretic Peptide 37.9 <100.0 PG/ML Total Protein 7.6 6.4-8.2 GM/DL Albumin 4.3 3.2-4.5 GM/DL Blood Gas Puncture Site LEFT RADIAL Blood Gas Patient Temperature 37.2 Arterial Blood pH 7.35 L 7.37-7.43 Arterial Blood Partial Pressure CO2 59 H 35-45 MMHG Arterial Blood Partial Pressure O2 77 L 79-93 MMHG Arterial Blood HCO3 32 H 23-27 MMOL/L Arterial Blood Total CO2 33.6 H 21.0-31.0 MMOL/L Arterial Blood Oxygen Saturation 96 94-100 % Arterial Blood Base Excess 6.4 H -2.5-2.5 MMOL/L Kamran Test POSITIVE Blood Gas Ventilator Setting NO Blood Gas Inspired Oxygen 2 Urine Color YELLOW Urine Clarity CLEAR Urine pH 5.0 5-[address] [place] >=1.030 1.016-1.022 Urine Protein NEGATIVE NEGATIVE Urine Glucose (UA) NEGATIVE NEGATIVE Urine Ketones NEGATIVE NEGATIVE Urine Nitrite NEGATIVE NEGATIVE Urine Bilirubin NEGATIVE NEGATIVE Urine Urobilinogen 0.2 < = 1.0 MG/DL Urine Leukocyte Esterase NEGATIVE NEGATIVE Urine RBC (Auto) NEGATIVE NEGATIVE Urine RBC NONE /HPF Urine WBC NONE /HPF Urine Crystals NONE /LPF Urine Bacteria TRACE /HPF Urine Casts NONE /LPF Urine Mucus MODERATE H /LPF Urine Culture Indicated CULTURE PENDING Urine Opiates Screen NEGATIVE NEGATIVE Urine Oxycodone Screen NEGATIVE NEGATIVE Urine Methadone Screen NEGATIVE NEGATIVE Urine Propoxyphene Screen NEGATIVE NEGATIVE Urine Barbiturates Screen NEGATIVE NEGATIVE Ur Tricyclic Antidepressants Screen NEGATIVE NEGATIVE Urine Phencyclidine Screen NEGATIVE NEGATIVE Urine Amphetamines Screen NEGATIVE NEGATIVE Urine Methamphetamines Screen NEGATIVE NEGATIVE Urine Benzodiazepines Screen NEGATIVE NEGATIVE Urine Cocaine Screen NEGATIVE NEGATIVE Urine Cannabinoids Screen NEGATIVE NEGATIVE My Orders Orders - LIZZETTE MCKEON Cbc With Automated Diff (12/03/19 20:26) Magnesium (12/03/19 20:26) Chest 1 View, Ap/Pa Only (12/03/19 20:26) Ekg Tracing (12/03/19 20:26) Comprehensive Metabolic Panel (12/03/19 20:26) Myoglobin Serum (12/03/19:) Protime With Inr (12/03/19:) Partial Thromboplastin Time (12/03/19:) O2 (12/03/19:) Monitor-Rhythm Ecg Trace Only (12/03/19) Lipid Panel (12/04/19 06:00) Ed Iv/Invasive Line Start (12/03/19:) Fibrin Degradation Products (12/03/19) Troponin I (12/03/19:) Aspirin Chewable Tablet (Baby Aspirin Ch (12/03/19 20:30) Blood Culture (12/03/19:) Sputum Culture (12/03/19:) Urinalysis (12/03/19) Urine Culture (12/03/19:) Ed Iv/Invasive Line Start (12/03/19:) Ed Iv/Invasive Line Start (12/03/19:) Vital Signs Adult Sepsis Patie Q15M (12/03/19:) Remove Rings In Anticipation O (12/03/19:) Lactic Acid Analyzer (12/03/19:) Ns Iv 1000 Ml (Sodium Chloride 0.9%) (12/03/19 20:26) Albuterol/Ipra Inhalation Soln (Duoneb I (12/03/19 20:30) Svn Small Volume Nebulizer (12/03/19:26) Aspirin Chewable Tablet (Baby Aspirin Ch (12/03/19 20:24) Ns Iv 1000 Ml (Sodium Chloride 0.9%) (12/03/19 20:25) Arterial Blood Gas (12/03/19 20:44) Drug Screen Stat (Urine) (12/03/19 21:09) Ed Iv/Invasive Line Start (12/03/19 21:20) Ns Iv 1000 Ml (Sodium Chloride 0.9%) (12/03/19 21:20) BNP (12/03/19 21:21) Ct Angio Chest W (12/03/19 21:23) Methylprednisolone Sod Succ (Solu-Medrol (12/03/19 21:45) Medications Given in ED Current Medications Medications Dose Ordered Sig/Erik Route Start Time Stop Time Status Last Admin Dose Admin Albuterol/ Ipratropium 3 ml ONCE ONCE INH 12/03/19 20:30 12/03/19 20:31 DC 12/03/19 20:41 3 ML Aspirin 324 mg ONCE ONCE PO 12/03/19 20:30 12/03/19 20:31 DC 12/03/19 20:33 324 MG Methylprednisolone Sodium Succinate 125 mg ONCE ONCE IVP 12/03/19 21:45 12/03/19 21:46 DC 12/03/19 21:40 125 MG Vital Signs/I&O 12/03/19 12/03/19 20:19 20:42 Temp 37.2 Pulse 101 Resp 20 B/P (MAP) 152/92 (112) Pulse Ox 96 99 O2 Delivery Nasal Cannula Nasal Cannula O2 Flow Rate 2.00 2.00 Progress Progress Note #1: Time: 20:40 Progress Note Several fingers were tried on both hands and we get consistent readings in the mid 80s on room air. Suspect this could represent some kind of inflammatory angiopathy versus he's actually just hypoxic considering he has extensive wheezing and a long-standing smoking history. We'll get an ABG chest x-ray septic workup even though is not having fever he is having tachycardia and hypoxia as well as moderate increased work of breathing with a respiratory rate of 20. COPD exacerbations also a very good possibility. Heart attack, vasospasm etc. could be an explanation for for his symptoms. We'll also obtain labs we can examine his get although his abdomen is soft, nontender and he is a symptomatic. We'll give him 3 and a 24 mg of aspirin and a liter of fluids. We'll get a d- dimer looking for clots. While he is on Plavix he is not on blood thinners. Based on the patient's admission he appears to live a rather sedentary lifestyle smoking cigarettes. We did admonish him that smoking cigarettes with a history of JENNIFER will greatly increase his risk for complications including heart attacks, , loss of circulation to his extremities, blindness etc. Even with a negative troponin his heart score would be for points despite not having chest pain. He would be difficult to recommend an outpatient workup without consultation with cardiology first. On 2 L by nasal cannula his heart rate came down from 110 to100 and his oxygen sats went up to 96%. DuoNeb has been ordered. BNP ordered. Cardiac catheterization by Dr. Rhoades May 2019: Date and stent in the obtuse marginal branch and multiple stents in the right coronary with small vessel nonobstructive disease. EF of 45%. Normal aortic arch and great vessels of the neck. Progress Note #2: Time: 20:55 Progress Note Patient does have some respiratory acidosis and hypoxia. He's sounds quite a bit better and even feels subjectively better after a single DuoNeb was still has some wheezing. We are going to initiate BiPAP 10/5. Progress Note #3: Time: 21:32 Progress Note Patient was initiated at 12/5 BiPAP and 30% FiO2 and was tolerating it well with a sat of 97%. Just now nursing informs me that he was having claustrophobia and does not want to mask any more. His initial troponin is negative we will need troponin repeated. He appears to be having COPD exacerbation. We can do some more breathing treatments on an observation stay and see if we can get away without needing further noninvasive positive pressure ventilation. D-dimer is mildly elevated at 0.5 so we're going to get a CT angiogram of the chest to rule out pulmonary embolism. 125 mg Solu-Medrol. Initial ECG Impression Date: Dec 03, 2019 Initial ECG Impression Time: 20:24 Initial ECG Rate: 99 Initial ECG Rhythm: Normal Sinus Initial ECG Intervals: Normal Initial ECG Impression: Normal Comment Normal sinus rhythm without clinically relevant ST elevation or depression. Diagnostic Imaging Diagonstic Imaging: Xray Plain Films/CT/US/NM/MRI: chest (1v) Comments NAME: HOANG ALVARADO [facility] REC#: [id number] PT STATUS: REG ER : 1970 PHYSICIAN: LIZZETTE MCKEON MD ADMIT DATE: 12/03/19/ER Draft Date of Exam:12/03/19 CHEST 1 VIEW, AP/PA ONLY INDICATION: Shortness of breath. COMPARISON: 06/15/2019. EXAMINATION: Portable chest. FINDINGS: The lungs are well-aerated and clear. There is no air-trapping. The heart is not enlarged. No pulmonary edema. No hilar adenopathy. No pneumothorax or pleural effusion. No bony abnormality. IMPRESSION: Normal portable chest. Dictated on workstation # [id number] Dict: 12/03/192100 Trans: 12/03/192102 [facility] [id number] Interpreted by: ENID ALANIS MD Electronically signed by: Reviewed: Reviewed by Me Diagonstic Imaging: CT (angio) Plain Films/CT/US/NM/MRI: chest Comments No pulmonary embolisms noted. No infiltrates. No PE or aortic dissection. Coronary atherosclerosis. Mild bronchial wall thickening, possible bronchitis. Reviewed: Reviewed [place] Study, Reviewed by Me Departure Communication (Admissions) Time/Spoke to Admitting Phy: 22:40 Discussed the case with Dr. Dejesus and she agrees with plan. We discussed that it does not appear to be infectious and so we were not going to do a testing for COVID-19 at this time. Time/Spoke to Consulting Phy: 22:20 Discussed the case with Dr. Alcocer and he agrees with continuing home medications and repeating a troponin in the morning. Impression Primary Impression: COPD with exacerbation Additional Impression: Acute respiratory failure with hypoxia and hypercapnia Disposition: ADMITTED INPATIENT Condition: Stable Admissions Decision to Admit Reason: Admit from ER (General) Decision to Admit/Date: Dec 03, 2019 Time/Decision to Admit Time: 21:20 Departure-Patient Inst. Referrals: NO,LOCAL PHYSICIAN (PCP/Family) Primary Care Physician LIZZETTE MCKEON Dec 03, 2019 20:37
[2019-12-03 20:40] LABS: BASOPHILS % (AUTO) 0 % (0-10); EOSINOPHILS # (AUTO) 0.2 10^3/uL (0.0-0.3); EOSINOPHILS % (AUTO) 2 % (0-10); HEMATOCRIT 50 % (40-54); HEMOGLOBIN 15.9 G/DL (13.3-17.7); LYMPHOCYTES # (AUTO) 1.5 X 10^3 (1.0-4.0); LYMPHOCYTES % (AUTO) 13 % (12-44); MEAN CORPUSCULAR HEMOGLOBIN 28 PG (25-34); MEAN CORPUSCULAR HGB CONC 32 G/DL (32-36); MEAN CORPUSCULAR VOLUME 89 FL (80-99); MEAN PLATELET VOLUME 9.3 FL (7.4-10.4); MONOCYTES # (AUTO) 0.7 X 10^3 (0.0-1.0); MONOCYTES % (AUTO) 6 % (0-12); NEUTROPHILS % (AUTO) 79 % (42-75); PLATELET COUNT 240 10^3/uL (130-400); WHITE BLOOD COUNT 11.4 10^3/uL (4.3-11.0)
[2019-12-03 20:48] LABS: ABG BASE EXCESS 6.4 MMOL/L (-2.5-2.5); ABG OXYGEN SATURATION 96 % (94-100); ABG PCO2 59 MMHG (35-45); ABG PH 7.35 (7.37-7.43); ABG PO2 77 MMHG (79-93); ABG TCO2 33.6 MMOL/L (21.0-31.0)
[2019-12-03 20:49] LABS: ALLENS TEST POSITIVE; INSPIRED O2 2; PATIENT TEMP 37.2; VENTILATOR NO
[2019-12-03 20:54] LABS: INR 0.9 (0.8-1.4); PROTHROMBIN TIME PATIENT 12.7 SEC (12.2-14.7)
--- NOTE | 2019-12-03 21:03 | Diagnostic Imaging Report ---
INDICATION: Shortness of breath. COMPARISON: 06/15/2019. EXAMINATION: Portable chest. FINDINGS: The lungs are well-aerated and clear. There is no air-trapping. The heart is not enlarged. No pulmonary edema. No hilar adenopathy. No pneumothorax or pleural effusion. No bony abnormality. IMPRESSION: Normal portable chest. Dictated by: Dictated on workstation # [id number]
[2019-12-03 21:06] LABS: ALBUMIN 4.3 GM/DL (3.2-4.5)
[2019-12-03 21:06] LABS: BILIRUBIN,URINE NEGATIVE (NEGATIVE); CLARITY,URINE CLEAR; COLOR,URINE YELLOW; GLUCOSE, URINE (UA) NEGATIVE (NEGATIVE); KETONES,URINE NEGATIVE (NEGATIVE); LEUKOCYTE ESTERASE ,URINE NEGATIVE (NEGATIVE); NITRITE,URINE NEGATIVE (NEGATIVE); PROTEIN,URINE NEGATIVE (NEGATIVE)
[2019-12-03 21:07] LABS: CHLORIDE 96 MMOL/L (98-107); POTASSIUM 3.5 MMOL/L (3.6-5.0); SODIUM 138 MMOL/L (135-145)
[2019-12-03 21:08] LABS: CALCIUM 9.4 MG/DL (8.5-10.1)
[2019-12-03 21:09] LABS: GLUCOSE 139 MG/DL (70-105); TOTAL PROTEIN 7.6 GM/DL (6.4-8.2)
[2019-12-03 21:11] LABS: BILIRUBIN,TOTAL 0.4 MG/DL (0.1-1.0)
[2019-12-03 21:12] LABS: GFR ESTIMATED > 60
[2019-12-03 21:13] LABS: BUN/CREATININE RATIO 6
[2019-12-03 21:15] LABS: ALANINE AMINOTRANSFERASE 12 U/L (0-55); MAGNESIUM 1.9 MG/DL (1.6-2.4)
[2019-12-03 21:19] LABS: BACTERIA,URINE TRACE /HPF
[2019-12-03 21:27] LABS: AMPHETAMINE SCREEN, URINE NEGATIVE (NEGATIVE); BARBITURATE SCREEN URINE NEGATIVE (NEGATIVE); BENZODIAZEPINES SCREEN URINE NEGATIVE (NEGATIVE); CANNABINOID SCREEN, URINE NEGATIVE (NEGATIVE); COCAINE SCREEN URINE NEGATIVE (NEGATIVE); METHADONE STAT NEGATIVE (NEGATIVE); METHAMPHETAMINE SCREEN URINE S NEGATIVE (NEGATIVE); OPIATE SCREEN URINE NEGATIVE (NEGATIVE); OXYCODONE STAT NEGATIVE (NEGATIVE); PROPOXYPHENE STAT NEGATIVE (NEGATIVE); TRICYCLIC ANTIDEPRESSANTS SCRE NEGATIVE (NEGATIVE)
[2019-12-03] MEDS ORDERED: methylPREDNISolone 125 MG (Solu-MEDROL) VIAL IVP ONE (21:45)
[2019-12-03 21:51] LABS: CARBON DIOXIDE 30 MMOL/L (21-32)
[2019-12-03 21:53] LABS: ALKALINE PHOSPHATASE 111 U/L (40-136)
[2019-12-03] MEDS ORDERED: HOLD METFORMIN - RECEIVED CONTRAST 20 ML VIAL IV SCH (22:45)
[2019-12-03] MEDS ORDERED: NS 100 ML (IVPB) BAG IV ONE (22:45)
[2019-12-03] MEDS ORDERED: IOHEXOL 350 MG/ML 100 ML (OMNIPAQUE 350) VIAL IV ONE (22:45)
[2019-12-03] MEDS ORDERED: LORazepam INJ 2 MG/ML (ATIVAN) VIAL IVP ONE (23:00)
--- NOTE | 2019-12-03 23:20 | NUR ---
Attempted to call report to LILA Dickinson at this time. RN will call back when ready for report d/t admitting another pt trasnfer at this time.
[2019-12-04] VITALS (21 sets, daily range): BP systolic 90–134; BP diastolic 51–76
--- NOTE | 2019-12-04 00:06 | NUR ---
Pt updated on room status. Pt has no needs at this time.
[2019-12-04] MEDS ORDERED: ONDANSETRON 4 MG/2 ML (SDV) Z0FRAN IV PRN (01:15)
[2019-12-04] MEDS ORDERED: LORazepam 0.5 MG (ATIVAN) TABLET PO PRN (01:15)
[2019-12-04] MEDS: NICOTINE 21 MG (NICODERM) PATCH TD PRN (01:33)
[2019-12-04 03:28] LABS: BASOPHILS % (AUTO) 0 % (0-10); EOSINOPHILS % (AUTO) 0 % (0-10); HEMATOCRIT 47 % (40-54); HEMOGLOBIN 14.9 G/DL (13.3-17.7); LYMPHOCYTES # (AUTO) 0.7 X 10^3 (1.0-4.0); LYMPHOCYTES % (AUTO) 8 % (12-44); MEAN CORPUSCULAR HEMOGLOBIN 29 PG (25-34); MEAN CORPUSCULAR HGB CONC 32 G/DL (32-36); MEAN CORPUSCULAR VOLUME 90 FL (80-99); MEAN PLATELET VOLUME 9.4 FL (7.4-10.4); MONOCYTES # (AUTO) 0.1 X 10^3 (0.0-1.0); MONOCYTES % (AUTO) 1 % (0-12); NEUTROPHILS # (AUTO) 8.1 X 10^3 (1.8-7.8); NEUTROPHILS % (AUTO) 91 % (42-75); PLATELET COUNT 229 10^3/uL (130-400); RED CELL DISTRIBUTION WIDTH 15.9 % (10.0-14.5); WHITE BLOOD COUNT 8.9 10^3/uL (4.3-11.0)
[2019-12-04 03:45] LABS: ALBUMIN 3.8 GM/DL (3.2-4.5); CHLORIDE 102 MMOL/L (98-107); SODIUM 138 MMOL/L (135-145)
[2019-12-04 03:47] LABS: TRIGLYCERIDES 72 MG/DL (<150); VLDL CHOLESTEROL 14 MG/DL (5-40)
[2019-12-04 03:48] LABS: GLUCOSE 160 MG/DL (70-105); TOTAL PROTEIN 6.7 GM/DL (6.4-8.2)
[2019-12-04 03:49] LABS: CARBON DIOXIDE 26 MMOL/L (21-32)
[2019-12-04 03:50] LABS: BILIRUBIN,TOTAL 0.4 MG/DL (0.1-1.0)
[2019-12-04 03:51] LABS: ALKALINE PHOSPHATASE 97 U/L (40-136); GFR ESTIMATED > 60
[2019-12-04 03:52] LABS: CHOLESTEROL 149 MG/DL (< 200)
[2019-12-04 03:53] LABS: BUN/CREATININE RATIO 8
[2019-12-04 03:54] LABS: HDL CHOLESTEROL 29 MG/DL (40-60)
[2019-12-04 03:55] LABS: ALANINE AMINOTRANSFERASE 12 U/L (0-55)
[2019-12-04 04:12] LABS: BAND NEUTROPHILS 1 %; LYMPHOCYTES % (MANUAL) 7 %; MONOCYTES % (MANUAL) 1 %; NEUTROPHILS % (MANUAL) 91 %; RBC MORPH NORMAL
[2019-12-04 04:26] LABS: ABG BASE EXCESS 4.4 MMOL/L (-2.5-2.5); ABG OXYGEN SATURATION 95 % (94-100); ABG PCO2 62 MMHG (35-45); ABG PO2 64 MMHG (79-93); ABG TCO2 32.4 MMOL/L (21.0-31.0)
[2019-12-04 04:28] LABS: ALLENS TEST POSITIVE; INSPIRED O2 3; VENTILATOR NO
[2019-12-04 04:31] LABS: ABG PH 7.31 (7.37-7.43)
[2019-12-04] MEDS ORDERED: RT-ALBUTEROL/IPRATROPIUM 3 ML (DUONEB) VIAL INH PRN (04:45)
--- NOTE | 2019-12-04 04:48 | Pulmonary Consultation ---
History of Present Illness History of Present Illness Date Seen by Provider: Dec 04, 2019 Time Seen by Provider: 04:44 Date of Admission History of Present Illness 49yo with hx of Buerger's disease, PVD with stents, left AKA, CAD, chronic cough, and tobacco use 3-4pks/day presented to ED secondary to acute n/v, diaphoresis. Denied CP Allergies and Home Medications Allergies Coded Allergies: Penicillins (Unverified Allergy, Mild, 01/27/09) Home Medications Allopurinol 100 Mg Tablet, 100 MG PO DAILY, (Reported) Aspirin 81 Mg Tablet.dr, 81 MG PO HS, (Reported) Atorvastatin Calcium 40 Mg Tablet, 40 MG PO HS, (Reported) LAST FILLED #90 01-16-19 Carisoprodol 350 Mg Tablet, 350 MG PO HS, (Reported) Clopidogrel Bisulfate 75 Mg Tablet, 75 MG PO DAILY, (Reported) Gabapentin 600 Mg Tablet, 600 MG PO QID, (Reported) LAST FILLED #120 04-22-19 Isosorbide Mononitrate 30 Mg Tab.er.24h, 30 MG PO DAILY, (Reported) Metoprolol Tartrate 50 Mg Tablet, 50 MG PO BID, (Reported) [place] 3 Polyunsat Fatty Acids 1,000 Mg Cap, 1,000 MG PO BID, (Reported) Omeprazole Magnesium 20 Mg Tablet.dr, 40 MG PO DAILY, (Reported) TAKES 2 (20MG) TABLETS Varenicline Tartrate 1 Each Tab.ds.pk, 1 EACH PO BID Prescribed by: JEFFERY DE SOUZA on 06/15/19 0950 Past Hxokekq-Eetpgw-Yighxl Hx Patient Social History Alcohol Use: Denies Use Recreational Drug Use: No Smoking Status: Current Everyday Smoker Type Used: Cigarettes (3 pack per day) 2nd Hand Smoke Exposure: No Recent Foreign Travel: No Contact w/Someone Who Travel: No Recent Infectious Disease Expo: No Recent Hopitalizations: No Immunizations Up To Date PED Vaccines UTD: Yes Date of Pneumonia Vaccine: Jul 28, 2012 Date of Influenza Vaccine: Sep 25, 2018 Seasonal Allergies Seasonal Allergies: No Past Medical History Surgeries: Yes (CARDIAC CATHS--STENTS X 1. LAST CATH 07/11/17 WITH STENT X 1) Amputation, Cardiac, Coronary Stent, Orthopedic Respiratory: Yes Pulmonary Embolism Currently Using CPAP: No Currently Using BIPAP: No Cardiac: Yes (ID X 2; STENTS X 4; -NSTEMI 07/11/17 WITH 1 STENT PLACED) Coronary Artery Disease, Deep Vein Thrombosis, Heart Attack, High Cholesterol, Hypertension Neurological: No Reproductive Disorders: No Genitourinary: No Gastrointestinal: Yes Gastroesophageal Reflux Musculoskeletal: Yes (HYDROCODONE + IBUPROFEN DAILY) Amputee, Chronic Back Pain, Gout Endocrine: No HEENT: No Cancer: No Psychosocial: No Integumentary: No Blood Disorders: Yes (PROTEIN S DEFICIENCY--DVT'S AND P.E.'S AND ID X 2) Family Medical History Arthritis G8 BROTHER Blood clots 19 MOTHER ( of blood clot) Cardiac disorder 19 FATHER Diabetes mellitus G8 BROTHER FH: cancer paternal grandmother FHx: inflammatory bowel disease G8 BROTHER No Family History of: FH: sudden cardiac (SCD) Heart Disease, Vascular Disease Sepsis Event Evaluation Height, Weight, BMI Height: 5'4.00" Weight: 190lbs. 1.6oz. 86.216384ba; 37.49 BMI Method:Stated Exam Exam Vital Signs Date Time Temp Pulse Resp B/P (MAP) Pulse Ox O2 Delivery O2 Flow Rate FiO2 12/04/19 04:00 36.0 82 21 97/51 (66) 97 Nasal Cannula 3.00 12/04/19 04:00 36.2 72 91 12/04/19 02:30 72 19 91/56 (68) 91 Nasal Cannula 3.00 12/04/19 02:00 78 17 90/59 (69) 93 Nasal Cannula 3.00 12/04/19 01:45 68 18 96/56 (69) 91 Nasal Cannula 3.00 12/04/19 01:40 Nasal Cannula 3.00 12/04/19 01:30 72 18 96/64 (75) 91 Nasal Cannula 2.00 12/04/19 01:10 36.2 75 14 132/76 93 Nasal Cannula 2.00 2.00 12/04/19 01:10 36.2 75 14 132/76 (94) 93 Nasal Cannula 2.00 12/04/19 01:10 80 12/04/19 01:10 Nasal Cannula 2.00 12/04/19 01:00 37.2 82 20 111/62 (112) 96 Nasal Cannula 2.00 12/03/19 20:42 99 Nasal Cannula 2.00 12/03/19 20:19 37.2 101 20 152/92 (112) 96 Nasal Cannula 2.00 I & O 12/04/19 07:00 Intake Total 2050 ml Output Total 450 ml Balance 1600 ml Height & Weight Height: 5'4.00" Weight: 190lbs. 1.6oz. 86.502604fo; 37.49 BMI Method:Stated Capillary Refill: Less Than 3 Seconds Gastrointestinal: normal bowel sounds, non tender, soft Results Lab Laboratory Tests 12/03/19 20:25 12/04/19 03:00 Assessment/Plan Assessment/Plan Acute on chronic respiratory failure - bipap -increase duoneb to Q 4 -Change prednisone to Solumedrol COPDAE -Oxygen Obesity Buerger's disease PVD with stents CAD JOHN HARLEY DO Dec 04, 2019 04:48
[2019-12-04] MEDS ORDERED: risperiDONE 1 MG (RisperDAL) TAB PO PRN (05:30)
[2019-12-04] MEDS ORDERED: predniSONE 20 MG TAB PO SCH (06:00)
[2019-12-04] MEDS: methylPREDNISolone 40 MG/ML (Solu-MEDROL) VIAL IV SCH ×3 (06:28→17:42)
[2019-12-04] MEDS: ISOSORBIDE MONONITRATE 30 MG (IMDUR) TAB PO SCH (06:29)
--- NOTE | 2019-12-04 07:10 | Diagnostic Imaging Report ---
PROCEDURE: CT angiography of the chest with contrast. TECHNIQUE: Multiple contiguous axial images were obtained through the chest after uneventful bolus administration of intravenous contrast. 3D reconstructed CTA MIP acquisitions were also performed. Auto Exposure Controls were utilized during the CT exam to meet ALARA standards for radiation dose reduction. INDICATION: Vomiting, diaphoresis, headache, pulmonary embolism. COMPARISON: None available FINDINGS: No significant adenopathy within the chest. No aneurysmal dilatation or dissection of the thoracic aorta. The heart is within normal limits in size. No pericardial effusion. No pleural effusion. No pneumothorax. Mild dependent atelectasis. Mild scattered bronchial wall thickening without focal consolidation. The trachea is patent. No significant filling defects within the pulmonary arteries. The visualized upper abdomen is unremarkable. No acute osseous abnormality. IMPRESSION: No significant pulmonary embolus or aortic aneurysm/dissection. Mild scattered bronchial wall thickening which may relate to underlying bronchitis. Scattered vascular calcifications, particularly within the coronary arteries. Additional findings as above. Agree with preliminary interpretation. Dictated by: Dictated on workstation # [id number]
[2019-12-04] MEDS: RT-ALBUTEROL/IPRATROPIUM 3 ML (DUONEB) VIAL INH SCH ×5 (07:46→22:04)
--- NOTE | 2019-12-04 08:07 | Diagnostic Imaging Report ---
EXAMINATION: Chest 1 view HISTORY: COPD COMPARISON: 12/03/2019 FINDINGS: The lungs are clear without edema or pneumonia. No pleural effusion or pneumothorax. Heart size is normal. IMPRESSION: 1. Clear lungs. Dictated by: Dictated on workstation # [id number]
[2019-12-04] MEDS: GABAPENTIN 600 MG (NEURONTIN) TAB PO SCH ×4 (08:18→20:32)
[2019-12-04] MEDS: meTOprolol TARTRATE 50 MG (LOPRESSOR) TAB PO SCH ×2 (08:18→20:32)
[2019-12-04] MEDS: PANTOPRAZOLE 40 MG (PROTONIX) TAB PO SCH (08:19)
[2019-12-04] MEDS: ENOXAPARIN 40 MG/0.4 ML (LOVENOX) SYR SC SCH (08:19)
[2019-12-04] MEDS: ASPIRIN 81 MG CHEW (CHILDREN'S ASA) PO SCH (08:19)
[2019-12-04] MEDS: CLOPIDOGREL 75 MG (PLAVIX) TABLET PO SCH (08:19)
[2019-12-04] MEDS ORDERED: PANT40TA2 PO (08:50)
[2019-12-04] MEDS ORDERED: CHOL100045 PO (08:51)
[2019-12-04] MEDS ORDERED: RT-ALBUTEROL/IPRATROPIUM 3 ML (DUONEB) VIAL INH SCH (09:00)
--- NOTE | 2019-12-04 09:03 | NUR ---
SPOKE WITH THE PT-AND CALLED HIS , WENT THRU THE EXT MED HISTORY CALLED [facility], AND [facility] TO COMPELTE THE MED REC PATIENT HAD BEEN FILLING AT [facility] BUT IS TRANSITIONING TO [facility] AND [facility]. THE FOLLOWING MEDICATIONS BALBIR SAYS WERE GIVEN FROM THE REPOSITORY : PROTONIX 40MG ASPIRIN 81MG ATORVASTATIN 40MG ALLOPURINOL 100MG [facility] IN [place] AND [place] HAS NO RECORD OF THESE MEDICATIONS-BUT FROM MY UNDERSTANDING WHEN A PT IS JUST GETTING SET UP WITH [facility] THEY MAY NOT DOCUMENT EVERYTHING ESPECIALLY REPOSITORY MEDICATIONS. THE PATIENTS WILL CALL ME BACK WHEN SHE HAS A CHANCE TO GO HOME AND LOOK AT THE BOTTLES TO GIVE ME MORE INFORMATION. THE PT ALSO SAID HE TAKES GABAPENTIN 600MG HOWEVER [facility] HAS NOT FILLED THIS SINCE 2019 AND [facility] OR [facility] HAD NOT DISPENSED- FOR THIS REASON I LEFT IT OFF THE MED REC OTC MEDS: FISH OIL VIT D
[2019-12-04] MEDS: ACETAMINOPHEN 500 MG TAB (TYLENOL) PO PRN ×2 (11:27→17:42)
--- NOTE | 2019-12-04 12:12 | History & Physical-Hospitalist ---
History of Present Illness HPI/Chief Complaint CC: Resp insufficiency HPI: This is a 49yoWM patient of [facility] who is known to me from prior IRF stay after [facility] 09/2018 [facility] due to severe PVD unable to salvage the leg who presents to the ER with dyspnea and found to have hypercapnia and placed on biPAP. Patient wants to DC biPAP and go home but I try to explain that is not an option currently. Patient feels ok otherwise and has not had any significant illness since last seen by this examiner 1+ year ago. I reviewed meds and labs and CT scan and will restart home meds. Patient continues to smoke and cessation was counseled. Source: patient Exam Limitations: no limitations Date Seen 12/04/19 Time Seen by a Provider: 10:45 Attending Physician Renetta Dejesus MD PCP No,Local Physician Referring Physician Date of Admission Dec 03, 2019 at 22:20 Home Medications & Allergies Home Medications Reviewed patient Home Medication Reconciliation performed by pharmacy medication reconciliations ceramics technician and/or nursing. Patients Allergies have been reviewed. Allergies Allergies Coded Allergies Penicillins (Unverified Allergy, Mild, 01/27/09) pneumococcal vaccine (Verified Allergy, Unknown, 12/04/19) Past Cmmtumm-Okmadq-Yzyfuz Hx Past Med/Social Hx: Reviewed Nursing Past Med/Soc Hx, Reviewed and Corrections made Patient Social History Marrital Status: Employed/Student: unemployed Alcohol Use: Denies Use Recreational Drug Use: No Smoking Status: Current Everyday Smoker Type Used: Cigarettes (3 pack per day) 2nd Hand Smoke Exposure: No Recent Foreign Travel: No Contact w/other who traveled: No Recent Hopitalizations: No Recent Infectious Disease Expo: No Immunizations Up To Date Pediatric: Yes Date of Pneumonia Vaccine: Jul 28, 2012 Date of Influenza Vaccine: Sep 25, 2018 Seasonal Allergies Seasonal Allergies: No Past Medical History Surgeries: Amputation, Cardiac, Coronary Stent, Orthopedic Respiratory: COPD, Pulmonary Embolism Currently Using CPAP: No Currently Using BIPAP: No Cardiac: Coronary Artery Disease, Deep Vein Thrombosis, Heart Attack, High Cholesterol, Hypertension Reproductive: No Gastrointestinal: Gastroesophageal Reflux Musculoskeletal: Amputee, Chronic Back Pain, Gout History of Blood Disorders: Yes (PROTEIN S DEFICIENCY--DVT'S AND P.E.'S AND ME X 2) Family History Arthritis G8 BROTHER Blood clots 19 MOTHER ( of blood clot) Cardiac disorder 19 FATHER Diabetes mellitus G8 BROTHER FH: cancer paternal grandmother FHx: inflammatory bowel disease G8 BROTHER No Family History of: FH: sudden cardiac (SCD) Heart Disease, Vascular Disease Review of Systems Constitutional: see HPI Respiratory: dyspnea on exertion, short of breath, wheezing Physical Exam Physical Exam Vital Signs Vital Signs - First Documented 12/03/19 12/04/19 20:19 08:45 Temp 37.2 Pulse 101 Resp 20 B/P (MAP) 152/92 (112) Pulse Ox 96 O2 Delivery Nasal Cannula O2 Flow Rate 2.00 FiO2 30 Capillary Refill : Less Than 3 Seconds Height, Weight, BMI Height: 5'4.00" Weight: 190lbs. 1.6oz. [id number]; 37.49 BMI Method:Stated General Appearance: No Apparent Distress Eyes: Right Eye Normal Inspection, Right Eye PERRL HEENT: PERRL/EOMI, Normal ENT Inspection, Pharynx Normal, Moist Mucous Membranes Neck: Full Range of Motion, Normal Inspection, Non Tender Respiratory: Chest Non Tender, No Respiratory Distress, Accessory Muscle Use, Crackles, Decreased Breath Sounds, Wheezing Cardiovascular: Regular Rate, Rhythm, No Edema, No Gallop, No JVD, No Murmur, Normal Peripheral Pulses Gastrointestinal: Normal Bowel Sounds, No Organomegaly, No Pulsatile Mass, Non Tender, Soft Back: Normal Inspection, No CVA Tenderness, No Vertebral Tenderness Extremity: Normal Capillary Refill, Normal Inspection, Normal Range of Motion, Non Tender, No Calf Tenderness, No Pedal Edema, Other (left AKA) Neurologic/Psychiatric: Alert, Oriented x3, No Motor/Sensory Deficits, Normal Mood/Affect Skin: Normal Color, Warm/Dry Lymphatic: No Adenopathy Results Results/Procedures Labs Laboratory Tests 12/03/19 20:25 12/04/19 03:00 Patient resulted labs reviewed. Assessment/Plan Admission Diagnosis Assessment: AECOPD Hypercapnia Respiratory insufficiency requiring biPAP h/o uneventful left knee amputation by Dr. 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
--- NOTE | 2019-12-04 14:06 | Consultation-Cardiology ---
HPI-Cardiology Cardiology Consultation: Date of Consultation 12/04/19 Time Seen by a Provider: 13:45 Date of Admission Attending Physician Renetta Dejesus MD Admitting Physician No,Local Physician Consulting Physician VIOLA ALCOCER MD, ,MA, FACP, FACC, FSCAI, CCDS Primary shift leader: Dr Rhoades HPI: Chief Complaint: CC: Shortness of breath and nausea HPI 49 yo man with chronic tobacco use and chronic shortness of breath who felt yesterday that he was more short of breath than usual and also had nausea. Came to ER. Found to be hypercapnic. Admitted to Dr Acevedo for management. Has been treated with BiPAP. Now feels back to his usual baseline. Nausea has not recurred. No vomiting or diarrhea. No palp or syncope or cp. No swelling. No fever or chills Review of Systems-Cardiology Review of Systems Constitutional: malaise, tiredness; No weight loss, No weight gain Eyes: No vision change Ears/Nose/Throat: No ear discharge, No nasal drainage, No recent hearing loss Respiratory: As described under HPI Cardiovascular: As described under HPI Gastrointestinal: As described under HPI Genitourinary: No dysuria, No hematuria Musculoskeletal: back pain (chronic) Skin: No rash, No ulcerations Psychiatric/Neurological: No focal weakness, No syncope Hematologic: No bleeding abnormalities All Other Systems Reviewed Negative Unless Noted: Yes PFA-Yaaqra-Oenchh Hx Patient Social History Marrital Status: Employed/Student: unemployed Alcohol Use: Denies Use Recreational Drug Use: No Smoking Status: Current Everyday Smoker Type Used: Cigarettes (3 pack per day) 2nd Hand Smoke Exposure: No Recent Foreign Travel: No Recent Infectious Disease Expo: No Immunizations Up To Date Date of Pneumonia Vaccine: Jul 28, 2012 Date of Influenza Vaccine: Sep 25, 2018 Past Medical History PMH As described under Assessment. Family Medical History Family History: Arthritis G8 BROTHER Blood clots 19 MOTHER ( of blood clot) Cardiac disorder 19 FATHER Diabetes mellitus G8 BROTHER FH: cancer paternal grandmother FHx: inflammatory bowel disease G8 BROTHER No Family History of: FH: sudden cardiac (SCD) Allergies and Home Medications Allergies Coded Allergies: Penicillins (Unverified Allergy, Mild, 01/27/09) pneumococcal vaccine (Verified Allergy, Unknown, 12/04/19) Home Medications Allopurinol 100 Mg Tablet, 100 MG PO DAILY, (Reported) Aspirin 81 Mg Tablet.dr, 81 MG PO HS, (Reported) Atorvastatin Calcium 40 Mg Tablet, 40 MG PO HS, (Reported) Cholecalciferol (Vitamin D3) 25 Mcg Tablet, 25 MCG PO DAILY, (Reported) Clopidogrel Bisulfate 75 Mg Tablet, 75 MG PO DAILY, (Reported) Isosorbide Mononitrate 30 Mg Tab.er.24h, 30 MG PO DAILY, (Reported) Metoprolol Tartrate 50 Mg Tablet, 50 MG PO BID, (Reported) [place] 3 Polyunsat Fatty Acids 1,000 Mg Cap, 1,000 MG PO BID, (Reported) Pantoprazole Sodium 40 Mg Tablet.dr, 40 MG PO DAILY, (Reported) Patient Home Medication List Home Medication List Reviewed: Yes Physical Exam-Cardiology Physical Exam Vital Signs/I&O 12/04/19 12/04/19 12/04/19 12/04/19 02:30 03:00 04:00 04:00 Temp 36.2 Pulse 72 81 72 Resp 19 15 B/P (MAP) 91/56 (68) 134/72 (92) Pulse Ox 91 97 91 O2 Delivery Nasal Cannula Nasal Cannula Nasal Cannula O2 Flow Rate 3.00 3.00 3.00 12/04/19 12/04/19 12/04/19 12/04/19 04:00 05:00 05:25 05:31 Temp 36.0 Pulse 82 75 65 Resp 21 14 14 B/P (MAP) 97/51 (66) 97/53 (68) Pulse Ox 97 96 93 O2 Delivery Nasal Cannula Nasal Cannula NIV Bilevel O2 Flow Rate 3.00 3.00 30.00 30.00 12/04/19 12/04/19 12/04/19 12/04/19 06:00 07:00 07:00 07:34 Temp 36.6 Pulse 67 72 83 Resp 15 11 B/P (MAP) 92/62 (72) 111/68 (82) Pulse Ox 90 93 O2 Delivery NIV Bilevel NIV Bilevel O2 Flow Rate 30.00 30.00 12/04/19 12/04/19 12/04/19 12/04/19 07:35 07:49 08:00 08:45 Pulse 87 Resp 14 B/P (MAP) 123/73 (90) Pulse Ox 92 92 94 O2 Delivery Nasal Cannula Nasal Cannula NIV Bilevel NIV Bilevel O2 Flow Rate 3.00 3.00 30.00 FiO2 30 12/04/19 12/04/19 12/04/19 12/04/19 09:00 10:00 10:43 11:00 Pulse 92 85 85 91 Resp 18 10 15 16 B/P (MAP) 98/55 (69) 101/66 (78) 110/75 (87) Pulse Ox 91 91 92 92 O2 Delivery NIV Bilevel NIV Bilevel NIV Bilevel O2 Flow Rate 30.00 30.00 30.00 30.00 12/04/19 12/04/19 12/04/19 12/04/19 11:23 12:00 12:00 12:26 Temp 36.7 Pulse 95 96 Resp 17 B/P (MAP) 120/66 (84) Pulse Ox 90 O2 Delivery Nasal Cannula NIV Bilevel O2 Flow Rate 3.00 30.00 12/04/19 13:00 Pulse 74 Resp 19 B/P (MAP) 110/64 (79) Pulse Ox 94 O2 Delivery NIV Bilevel O2 Flow Rate 30.00 12/04/19 00:00 Intake Total 2000 ml Balance 2000 ml Capillary Refill : Less Than 3 Seconds Constitutional: AAO x 3, well-developed, well-nourished HEENT: EOMI, hearing is well preserved; No xanthelasmas are seen Neck: carotid pulses are 2 + bilaterally, with good upstrokes Respiratory: No accessory muscle use; other (fair air entry, somewhat prolonged exp phase) Cardiovascular: regular rate-rhythm, S1 and S2, systolic murmur (soft ANIL at card base) Gastrointestinal: No tender; soft; No guarding, No rebound, No audible bowel sounds Extremities: other (L AKA); No clubbing, No cyanosis, No significant edema Neurologic/Psychiatric: oriented x 3, other (moves all limbs equally) Skin: No rash on exposed areas, No ulcerations on exposed areas Data Review Labs Laboratory Tests 12/03/19 20:25: White Blood Count 11.4H, Red Blood Count 5.60, Hemoglobin 15.9, Hematocrit 50, Mean Corpuscular Volume 89, Mean Corpuscular Hemoglobin 28, Mean Corpuscular Hemoglobin Concent 32, Red Cell Distribution Width 16.0H, Platelet Count 240, Mean Platelet Volume 9.3, Neutrophils (%) (Auto) 79H, Lymphocytes (%) (Auto) 13, Monocytes (%) (Auto) 6, Eosinophils (%) (Auto) 2, Basophils (%) (Auto) 0, Neutrophils # (Auto) 9.0H, Lymphocytes # (Auto) 1.5, Monocytes # (Auto) 0.7, E osinophils # (Auto) 0.2, Basophils # (Auto) 0.0, Prothrombin Time 12.7, INR Comment 0.9, Activated Partial Thromboplast Time 31, D-Dimer 0.50H, Sodium Level 138, Potassium Level 3.5L, Chloride Level 96L, Carbon Dioxide Level 30, Anion Ga p 12, Blood Urea Nitrogen 5L, Creatinine 0.90, Estimat Glomerular Filtration Ra te > 60, BUN/Creatinine Ratio 6, Glucose Level 139H, Lactic Acid Level 1.29, Ca lcium Level 9.4, Corrected Calcium 9.2, Magnesium Level 1.9, Total Bilirubin 0.4, Aspartate Amino Transf (AST/SGOT) 18, Alanine Aminotransferase (ALT/SGPT) 12, Alkaline Phosphatase 111, Myoglobin 46.6, Troponin I < 0.028, B-Type Natriuretic Peptide 37.9, Total Protein 7.6, Albumin 4.3 12/03/19 20:43: Blood Gas Puncture Site LEFT RADIAL, Blood Gas Patient Temperature 37.2, Arterial Blood pH 7.35L, Arterial Blood Partial Pressure CO2 59H, Arterial Blood Partial Pressure O2 77L, Arterial Blood HCO3 32H, Arterial Blood Total CO2 33.6H , Arterial Blood Oxygen Saturation 96, Arterial Blood Base Excess 6.4H, Kamran Test POSITIVE, Blood Gas Ventilator Setting NO, Blood Gas Inspired Oxygen 2 12/03/19 21:01: Urine Color YELLOW, Urine Clarity CLEAR, Urine pH 5.0, Urine Specific [place] >=1.030, Urine Protein NEGATIVE, Urine Glucose (UA) NEGATIVE, Urine Ketones NEGATIVE, Urine Nitrite NEGATIVE, Urine Bilirubin NEGATIVE, Urine Urobilinogen 0.2, Urine Leukocyte Esterase NEGATIVE, Urine RBC (Auto) NEGATIVE, Urine RBC NONE, Urine WBC NONE, Urine Crystals NONE, Urine Bacteria TRACE, Urine Casts NONE, Urine Mucus MODERATEH, Urine Culture Indicated CULTURE PENDING, Urine Opiates Screen NEGATIVE, Urine Oxycodone Screen NEGATIVE, Urine Methadone Screen NEGATIVE, Urine Propoxyphene Screen NEGATIVE, Urine Barbiturates Screen NEGATIVE, Ur Tricyclic Antidepressants Screen NEGATIVE, Urine Phencyclidine Screen NEGATIVE, Urine Amphetamines Screen NEGATIVE, Urine Methamphetamines Screen NEGATIVE, Urine Benzodiazepines Screen NEGATIVE, Urine Cocaine Screen NEGATIVE, Urine Cannabinoids Screen NEGATIVE 12/04/19 03:00: White Blood Count 8.9, Red Blood Count 5.19, Hemoglobin 14.9, Hematocrit 47, Sandra n Corpuscular Volume 90, Mean Corpuscular Hemoglobin 29, Mean Corpuscular Hemoglobin Concent 32, Red Cell Distribution Width 15.9H, Platelet Count 229, Mean Platelet Volume 9.4, Neutrophils (%) (Auto) 91H, Lymphocytes (%) (Auto) 8L, Monocytes (%) (Auto) 1, Eosinophils (%) (Auto) 0, Basophils (%) (Auto) 0, Neutrophils # (Auto) 8.1H, Lymphocytes # (Auto) 0.7L, Monocytes # (Auto) 0.1, Eosinophils # (Auto) 0.0, Basophils # (Auto) 0.0, Sodium Level 138, Potassium Level 5.0, Chloride Level 102, Carbon Dioxide Level 26, Anion Gap 10, Blood Urea Nitrogen 6L, Creatinine 0.80, Estimat Glomerular Filtration Rate > 60, BUN/Creatinine Ratio 8, Glucose Level 160H, Calcium Level 9.0, Corrected Calcium 9.2, Total Bilirubin 0.4, Aspartate Amino Transf (AST/SGOT) 14, Alanine Aminotransferase (ALT/SGPT) 12, Alkaline Phosphatase 97, Troponin I < 0.028, Total Protein 6.7, Albumin 3.8, Neutrophils % (Manual) 91, Lymphocytes % (Manual) 7, Monocytes % (Manual) 1, Band Neutrophils 1, Blood Morphology Comment NORMAL, Triglycerides Level 72, Cholesterol Level 149, LDL Cholesterol Direct 124, VLDL Cholesterol 14, HDL Cholesterol 29L 12/04/19 04:21: Blood Gas Puncture Site LEFT RADIAL, Blood Gas Patient Temperature 36.0, Arterial Blood pH 7.31*L, Arterial Blood Partial Pressure CO2 62H, Arterial Blood Partial Pressure O2 64L, Arterial Blood HCO3 31H, Arterial Blood Total CO2 32.4H, Arterial Blood Oxygen Saturation 95, Arterial Blood Base Excess 4.4H, Kamran Test POSITIVE, Blood Gas Ventilator Setting NO, Blood Gas Inspired Oxygen 3 Laboratory Tests 12/03/19 20:25 12/04/19 03:00 A/P-Cardiology Assessment/Admission Diagnosis Shortness of breath due to ac exac of COPD. No evidence or ACS Coronary artery disease, history of Promus drug-eluting stent placement using 2.512 mm in the circumflex artery in July [address] Alcocer after having myocardial infarction. Had non-ST elevation myocardial infarction on July 12, 2017 had total occlusion of the obtuse marginal branch successful the plan of Resolute integrity 2.526 mm with good results. Total occlusion of the right coronary artery with failed attempt for intervention, referred to Dr. Warner, had intervention on the right coronary artery with 3 drug-eluting stent overlapping in the right coronary artery. Patient had non-ST elevation VA on July 12, 2018 and underwent cardiac catheterization with Dr. Duran revealing stent thrombosis and occlusion of the distal/mid RCA stents treateed with PTCA. Most recent cardiac catheterization done June 15, 2019 revealing patent stents with small vessel disease distally. He is maintained on Plavix and aspirin S/p L AKA, apparently for Buerger's disease Chronic systolic CHF. H/o left ventricular systolic dysfunction, improved with intervention and maximizing medical therapy. Echo of 07/22/19 (Dr Rhoades): LVEF 35-40%, grade 1 pereira dysfunction, mild enlargement of LA, PASP 20 mmHg Chronic tobacco use (smokes cigarettes) Hyperlipidemia, by history, managed by Dr Rhoades History of gastroesophageal reflux disease. History of deep venous thrombosis in the remote past. Discussion and Recomendations * Continue previous cardiac regimen * Advised to quit smoking immediately and completely * I reviewed his CV issues with him and answered CV-related questions * Outpt f/u advised with Dr Rhoades Clinical Quality Measures DVT/VTE Risk/Contraindication: Risk Factor Score Per Nursin RFS Level Per Nursing on Admit: 4+=Very High VIOLA ALCOCER MD FACP FAC CCDS Dec 04, 2019 14:06
--- NOTE | 2019-12-04 15:13 | NUR ---
Report from Michelle SHARP, patient to room 414, patient oriented to room and call light. Will assume care of patient at this time.
[2019-12-04] MEDS: OMEGA 3 (FISH OIL) 1000 MG CAP PO SCH (20:32)
[2019-12-04] MEDS ORDERED: meTOprolol TARTRATE 50 MG (LOPRESSOR) TAB PO SCH (21:00)
[2019-12-04] MEDS ORDERED: ASPIRIN E.C. 81 MG (ECOTRIN) TAB PO SCH (21:00)
[2019-12-04] MEDS: ADVAIR HFA 115/21 MCG INHALER 8 GM IH SCH (22:03)
[2019-12-05] VITALS: BP 120/68
[2019-12-05] MEDS: methylPREDNISolone 40 MG/ML (Solu-MEDROL) VIAL IV SCH ×3 (00:29→12:09)
[2019-12-05] MEDS: NICOTINE 21 MG (NICODERM) PATCH TD PRN (00:29)
[2019-12-05] MEDS: RT-ALBUTEROL/IPRATROPIUM 3 ML (DUONEB) VIAL INH SCH ×4 (02:13→15:09)
[2019-12-05 04:00] VITALS: BP 110/60
[2019-12-05] MEDS: ISOSORBIDE MONONITRATE 30 MG (IMDUR) TAB PO SCH (06:12)
--- NOTE | 2019-12-05 06:52 | Pulmonary Progress Note ---
Subjective Time Seen by a Provider: 06:45 Sepsis Event Evaluation Height, Weight, BMI Height: 5'4.00" Weight: 190lbs. 1.6oz. 86.453685lv; 37.49 BMI Method:Stated Focused Exam Lactate Level 12/03/19 20:25: Lactic Acid Level 1.29 Exam Exam Vital Signs Date Time Temp Pulse Resp B/P (MAP) Pulse Ox O2 Delivery O2 Flow Rate FiO2 12/05/19 04:00 36.8 83 18 110/60 (77) 96 Nasal Cannula 4.00 12/05/19 02:14 96 Nasal Cannula 4.00 12/05/19 00:00 36.6 78 17 120/68 (85) 95 Nasal Cannula 4.00 12/04/19 22:04 97 Nasal Cannula 4.00 12/04/19 21:00 Nasal Cannula 4.00 12/04/19 19:52 36.8 81 18 119/70 (86) 97 Nasal Cannula 4.00 12/04/19 18:36 94 Nasal Cannula 4.00 12/04/19 15:35 36.8 86 20 115/72 (86) 93 Nasal Cannula 4.00 12/04/19 14:19 93 Nasal Cannula 3.00 12/04/19 14:00 73 19 108/58 (75) 94 NIV Bilevel 30.00 12/04/19 13:00 74 19 110/64 (79) 94 NIV Bilevel 30.00 12/04/19 12:26 96 12/04/19 12:00 95 17 120/66 (84) 90 NIV Bilevel 30.00 12/04/19 12:00 Nasal Cannula 3.00 12/04/19 11:23 36.7 12/04/19 11:00 91 16 110/75 (87) 92 NIV Bilevel 30.00 12/04/19 10:43 85 15 92 30.00 12/04/19 10:00 85 10 101/66 (78) 91 NIV Bilevel 30.00 12/04/19 09:00 92 18 98/55 (69) 91 NIV Bilevel 30.00 12/04/19 08:45 94 NIV Bilevel 30 12/04/19 08:00 87 14 123/73 (90) 92 NIV Bilevel 30.00 12/04/19 07:49 92 Nasal Cannula 3.00 12/04/19 07:35 Nasal Cannula 3.00 12/04/19 07:34 36.6 12/04/19 07:00 83 11 111/68 (82) 93 NIV Bilevel 30.00 12/04/19 07:00 72 I & O 12/05/19 07:00 Intake Total 2452 ml Output Total 3000 ml Balance -548 ml Height & Weight Height: 5'4.00" Weight: 190lbs. 1.6oz. 86.256294gj; 37.49 BMI Method:Stated General Appearance: No Apparent Distress HEENT: PERRL/EOMI, Normal ENT Inspection, Pharynx Normal, Moist Mucous Membranes Neck: Full Range of Motion, Normal Inspection, Non Tender Respiratory: Chest Non Tender, No Respiratory Distress, Accessory Muscle Use, Crackles, Decreased Breath Sounds, Wheezing Cardiovascular: Regular Rate, Rhythm, No Edema, No Gallop, No JVD, No Murmur, Normal Peripheral Pulses Capillary Refill: Less Than 3 Seconds Gastrointestinal: normal bowel sounds, non tender, soft Extremity: Normal Capillary Refill, Normal Inspection, Normal Range of Motion, Non Tender, No Calf Tenderness, No Pedal Edema, Other (left AKA) Neurologic/Psychiatric: Alert, Oriented x3, No Motor/Sensory Deficits, Normal Mood/Affect Skin: Normal Color, Warm/Dry Lymphatic: No Adenopathy Results Lab Laboratory Tests 12/03/19 20:25 12/04/19 03:00 Assessment/Plan Assessment/Plan Acute on chronic respiratory failure - bipap was started yesterday after ABG appeared worse -Repeat ABG -Pt is a full code. - duoneb to Q 4 -Change prednisone to Solumedrol -Pt was transferred to 4th floor from ICU yesterday afternoon. I was not aware of transfer. -Repeat ABG COPDAE -Oxygen Obesity Buerger's disease PVD with stents CAD JOHN HARLEY DO Dec 05, 2019 06:52
[2019-12-05 07:49] VITALS: BP 118/57
[2019-12-05] MEDS: GABAPENTIN 600 MG (NEURONTIN) TAB PO SCH ×2 (08:02→12:09)
[2019-12-05] MEDS: OMEGA 3 (FISH OIL) 1000 MG CAP PO SCH (08:02)
[2019-12-05] MEDS: ENOXAPARIN 40 MG/0.4 ML (LOVENOX) SYR SC SCH (08:02)
[2019-12-05] MEDS: ASPIRIN 81 MG CHEW (CHILDREN'S ASA) PO SCH (08:03)
[2019-12-05] MEDS: meTOprolol TARTRATE 50 MG (LOPRESSOR) TAB PO SCH (08:03)
[2019-12-05] MEDS: CLOPIDOGREL 75 MG (PLAVIX) TABLET PO SCH (08:03)
[2019-12-05] MEDS: PANTOPRAZOLE 40 MG (PROTONIX) TAB PO SCH (08:03)
[2019-12-05] MEDS: ACETAMINOPHEN 500 MG TAB (TYLENOL) PO PRN (08:04)
[2019-12-05 08:16] LABS: ABG PCO2 60 MMHG (35-45); ABG PH 7.34 (7.37-7.43)
[2019-12-05 08:17] LABS: ABG BASE EXCESS 6.2 MMOL/L (-2.5-2.5); ABG OXYGEN SATURATION 92 % (94-100); ABG PO2 61 MMHG (79-93); ABG TCO2 57.4 MMOL/L (21.0-31.0)
[2019-12-05 08:18] LABS: ALLENS TEST P; INSPIRED O2 RESP RATE 20; VENTILATOR YES
[2019-12-05 08:19] LABS: PATIENT TEMP 36.8
--- NOTE | 2019-12-05 08:27 | NUR ---
Dr. Dejesus and Dr. Michael notified at this time of critical pH 7.34
[2019-12-05] MEDS ORDERED: CLOPIDOGREL 75 MG (PLAVIX) TABLET PO SCH (09:00)
[2019-12-05] MEDS ORDERED: ISOSORBIDE MONONITRATE 30 MG (IMDUR) TAB PO SCH (09:00)
[2019-12-05] MEDS ORDERED: PANTOPRAZOLE 40 MG (PROTONIX) TAB PO SCH (09:00)
[2019-12-05] MEDS ORDERED: ALLOPURINOL 100 MG (ZYLOPRIM) TAB PO SCH (09:00)
[2019-12-05] MEDS ORDERED: VITAMIN D3 25 MCG (1,000 UNITS) TABLET PO SCH (09:00)
--- NOTE | 2019-12-05 11:08 | Progress Note - Hospitalist ---
Subjective HPI/CC On Admission Date Seen by Provider: Dec 05, 2019 Time Seen by Provider: 09:45 CC: Resp insufficiency HPI: This is a 49yoWM patient of [facility] who is known to me from prior IRF stay after [facility] 09/2018 [facility] due to severe PVD unable to salvage the leg who presents to the ER with dyspnea and found to have hypercapnia and placed on biPAP. Patient wants to DC biPAP and go home but I try to explain that is not an option currently. Patient feels ok otherwise and has not had any significant illness since last seen by this examiner 1+ year ago. I reviewed meds and labs and CT scan and will restart home meds. Patient continues to smoke and cessation was counseled. Subjective/Events-last exam Patient is adamant that he wants to go home today. He says he'll leave AMA. He has never been on oxygen before and is requiring 4 L by nasal cannula. Chest x- ray is clear. I discussed with him that there would be a high likelihood of him dying if he did not go home on oxygen. Review of Systems Pulmonary: Dyspnea Focused Exam Lactate Level 12/03/19 20:25: Lactic Acid Level 1.29 Objective Exam Vital Signs Vital Signs Date Time Temp Pulse Resp B/P (MAP) Pulse Ox O2 Delivery O2 Flow Rate FiO2 12/05/19 15:28 12/05/19 15:10 94 Nasal Cannula 4.00 12/05/19 11:17 37.0 74 20 12/04/19 08:45 30 Capillary Refill : Less Than 3 Seconds General Appearance: No Apparent Distress, WD/WN HEENT: Normal ENT Inspection Neck: Non Tender, Supple Respiratory: Decreased Breath Sounds, Wheezing Cardiovascular: Regular Rate, Rhythm, No Gallop, No Murmur Gastrointestinal: Normal Bowel Sounds, Non Tender, Soft Rectal: Deferred Back: Normal Inspection Extremity: Other (Left AKA) Results/Procedures Lab Patient resulted labs reviewed. Assessment/Plan Assessment and Plan Assess & Plan/Chief Complaint AECOPD-on steroids and 4 L nasal cannula Hypercapnia-respiratory failure requiring higher doses of O2-pH is improving h/o uneventful left knee amputation by Dr. Marcelo and [facility] 09/2018 Recent OR 8 weeks ago Tobaccoism-counseled Coarse breath sounds PVD Buerger's disease Plan to see if we can set up home oxygen since healed go AMA without it. Clinical Quality Measures DVT/VTE Risk/Contraindication: Risk Factor Score Per Nursin RFS Level Per Nursing on Admit: 4+=Very High DORINDA TURCIOS MD Dec 05, 2019 11:08
[2019-12-05 11:17] VITALS: BP 106/59
[2019-12-05] MEDS: ADVAIR HFA 115/21 MCG INHALER 8 GM IH SCH (11:34)
--- NOTE | 2019-12-05 12:49 | Progress Note - Cardiology ---
Cardiology SOAP Progress Note Subjective: No cp or palp or syncope Shortness of breath better compared to time of admission No focal weakness Gen malaise No n/v/d Objective: I&O/Vital Signs 12/05/19 12/05/19 12/05/19 12/05/19 02:14 04:00 07:40 07:49 Temp 36.8 36.8 Pulse 83 83 Resp 18 20 B/P (MAP) 110/60 (77) 118/57 (77) Pulse Ox 96 96 94 96 O2 Delivery Nasal Cannula Nasal Cannula Nasal Cannula Nasal Cannula O2 Flow Rate 4.00 4.00 4.00 4.00 12/05/19 12/05/19 12/05/19 12/05/19 09:00 11:17 11:37 11:38 Temp 37.0 Pulse 74 Resp 20 B/P (MAP) 106/59 (75) Pulse Ox 96 96 94 94 O2 Delivery Nasal Cannula Nasal Cannula Nasal Cannula Nasal Cannula O2 Flow Rate 4.00 4.00 4.00 4.00 12/05/19 00:00 Intake Total 1528 ml Output Total 2250 ml Balance -722 ml Weight (Pounds): 190 Weight (Ounces): 1.6 Weight (Calculated Kilograms): 86.661049 Constitutional: AAO x 3, well-developed, well-nourished Respiratory: No accessory muscle use; other (fair air entry, somewhat prolonged exp phase) Cardiovascular: regular rate-rhythm, S1 and S2, systolic murmur (soft ANIL at card base) Gastrointestional: No tender; soft; No guarding, No rebound, No audible bowel sounds Extremities: other (L AKA); No clubbing, No cyanosis, No significant edema Neurologic/Psychiatric: oriented x 3, other (moves all limbs equally) Skin: No rash on exposed areas, No ulcerations on exposed areas Results/Procedures: Labs Laboratory Tests 12/05/19 07:48: Blood Gas Puncture Site LEFT RADIAL, Blood Gas Patient Temperature 36.8, Arterial Blood pH 7.34*L, Arterial Blood Partial Pressure CO2 60H, Arterial Blood Partial Pressure O2 61L, Arterial Blood HCO3 32H, Arterial Blood Total CO2 57.4H, Arterial Blood Oxygen Saturation 92L, Arterial Blood Base Excess 6.2H, Kamran Test P, Blood Gas Ventilator Setting YES, Blood Gas Inspired Oxygen RESP RATE 20 Microbiology 12/03/19 Urine Culture - Final, Complete NO GROWTH 12/03/19 Blood Culture - Preliminary, Resulted No growth Laboratory Tests 12/03/19 20:25 12/04/19 03:00 A/P: Assessment: Shortness of breath due to ac exac of COPD. No evidence or ACS Coronary artery disease, history of Promus drug-eluting stent placement using 2.512 mm in the circumflex artery in July [address] Alcocer after having myocardial infarction. Had non-ST elevation myocardial infarction on July 12, 2017 had total occlusion of the obtuse marginal branch successful the plan of Resolute integrity 2.526 mm with good results. Total occlusion of the right coronary artery with failed attempt for intervention, referred to Dr. Warner, had intervention on the right coronary artery with 3 drug-eluting stent overlapping in the right coronary artery. Patient had non-ST elevation ND on July 12, 2018 and underwent cardiac catheterization with Dr. Duran revealing stent thrombosis and occlusion of the distal/mid RCA stents treateed with PTCA. Most recent cardiac catheterization done June 15, 2019 revealing patent stents with small vessel disease distally. He is maintained on Plavix and aspirin S/p L AKA, apparently for Buerger's disease Chronic systolic CHF. H/o left ventricular systolic dysfunction, improved with intervention and maximizing medical therapy. Echo of 07/22/19 (Dr Rhoades): LVEF 35-40%, grade 1 pereira dysfunction, mild enlargement of LA, PASP 20 mmHg Chronic tobacco use (smokes cigarettes) Hyperlipidemia, by history, managed by Dr Rhoades History of gastroesophageal reflux disease. History of deep venous thrombosis in the remote past. Plan: * Focus of CV management is on risk factor mod and med compliance. We discussed this today * We again advised him to quit smoking immediately and completely * I reviewed his CV issues with him and answered CV-related questions * Outpt f/u advised with Dr Verona ALCOCER,VIOLA ENRIQUE FACP FAC CCDS Dec 05, 2019 12:49
[2019-12-05] MEDS ORDERED: PRED10TA22 PO (15:11)
[2019-12-05] MEDS ORDERED: FLUT12AE4 IH (15:11)
[2019-12-05] MEDS ORDERED: IPRA3AMP31 INH (15:11)
--- NOTE | 2019-12-05 15:27 | Discharge Summary ---
Discharge Summary Hospital Course Was the Problem List Reviewed?: Yes Problems/Dx: (1) COPD (chronic obstructive pulmonary disease) Qualifiers: Qualified Codes: J44.9 - Chronic obstructive pulmonary disease, unspecified (2) COPD with exacerbation Status: Acute (3) Acute respiratory failure with hypoxia and hypercapnia Status: Acute Hospital Course Date of Admission: Dec 03, 2019 at 22:20 Admission Diagnosis : Family Physician/Provider: No,Local Physician Date of Discharge: 12/05/19 Discharge Diagnosis: [exacerbation of COPD CAD MYRIAM Montanojovon SILVEIRA tobaccoism ] Hospital Course: [ ]Pt was admitted with increased SOB and hypoxia of new onset. CXR was clear. Pt was placed on steroids and breathing treatments and improved some. He has became adament that he is going home and will leave AMA. He has been counseled by Fernanda Florez , and myself that he must stop smoking. His o2 sat RA is 87% and he can be set up for O2 continuous. Against my better Judgement he is d/c on home O2 and a steroid taper. Labs and Pending Lab Test: Laboratory Tests 12/05/19 07:48: Blood Gas Puncture Site LEFT RADIAL, Blood Gas Patient Temperature 36.8, Arterial Blood pH 7.34*L, Arterial Blood Partial Pressure CO2 60H, Arterial Blood Partial Pressure O2 61L, Arterial Blood HCO3 32H, Arterial Blood Total CO2 57.4H, Arterial Blood Oxygen Saturation 92L, Arterial Blood Base Excess 6.2H, Kamran Test P, Blood Gas Ventilator Setting YES, Blood Gas Inspired Oxygen RESP RATE 20 Microbiology 12/03/19 Urine Culture - Final, Complete NO GROWTH 12/03/19 Blood Culture - Preliminary, Resulted No growth Home Meds Active Prednisone 10 Mg Tab.ds.pk 10 Mg PO DAILY Take 6 tabs(60mg)daily,decrease by 1 tab(10mg)every other day. Iprat-Albut 0.5-3(2.5) mg/3 ml (Ipratropium/Albuterol Sulfate) 3 Ml Ampul.neb 3 Ml INH Q2HR PRN 30 Days Advair Hfa 115-21 Mcg Inhaler (Fluticasone/Salmeterol) 12 Gm Hfa.aer.ad 0 Puff IH RTBID 30 Days Reported Vitamin D3 (Cholecalciferol (Vitamin D3)) 25 Mcg Tablet 25 Mcg PO DAILY Protonix (Pantoprazole Sodium) 40 Mg Tablet.dr 40 Mg PO DAILY Metoprolol Tartrate 50 Mg Tablet 50 Mg PO BID Plavix (Clopidogrel Bisulfate) 75 Mg Tablet 75 Mg PO DAILY Aspirin EC (Aspirin) 81 Mg Tablet.dr 81 Mg PO HS Isosorbide Mononitrate ER (Isosorbide Mononitrate) 30 Mg Tab.er.24h 30 Mg PO DAILY Allopurinol 100 Mg Tablet 100 Mg PO DAILY Fish Oil 1,000 mg Capsule ([place] 3 Polyunsat Fatty Acids) 1,000 Mg Cap 1,000 Mg PO BID Atorvastatin Calcium 40 Mg Tablet 40 Mg PO HS Assessment/Pt Instructions Exacerbation of COPD with hypercapnic respiratory failure CAD SANTANAA Rosalinda DZ Tobaccoism Discharge Planning: <30 minutes discharge planning Discharge Instructions Discharge Diet: Cardiac Diet Activity as Tolerated: Yes Orders & Referrals [facility] for Home O2 Consultations Dr. Fernanda Alcocer Discharge Physical Examination Vital Signs Vital Signs Date Time Temp Pulse Resp B/P (MAP) Pulse Ox O2 Delivery O2 Flow Rate FiO2 12/05/19 15:10 94 Nasal Cannula 4.00 12/05/19 11:17 37.0 74 20 106/59 (75) 12/04/19 08:45 30 General Appearance: No Apparent Distress HEENT: Normal ENT Inspection Respiratory: No Accessory Muscle Use, No Respiratory Distress, Inspiration, Wheezing Cardiovascular: Regular Rate, Rhythm, No Gallop Gastrointestinal: Normal Bowel Sounds, Non Tender Extremity: Pedal Edema Skin: Normal Color Neurologic/Psychiatric: Alert, Oriented x3 Allergies: Coded Allergies: Penicillins (Unverified Allergy, Mild, 01/27/09) pneumococcal vaccine (Verified Allergy, Unknown, 12/04/19) Discharge Summary Date of Admission Dec 03, 2019 at 22:20 Date of Discharge Discharge Date: Dec 05, 2019 Discharge Time: 1600 Admission Diagnosis Assessment: AECOPD Hypercapnia Respiratory insufficiency requiring biPAP h/o uneventful left knee amputation by Dr. Marcelo and [facility] 09/2018 Recent [place] 8 weeks ago Smoker Coarse breath sounds PVD Plan: Initiate CSD protocol Work on wean biPAP Monitor labs closely Chest x-ray Nebulized treatments (1A) AECOPD respiratory insufficiency (1) h/o Above knee amputation of left lower extremity (2) CAD (coronary artery disease) (3) Myocardial infarct, old (4) Smoker (5) PVD (peripheral vascular disease) (6) COPD (chronic obstructive pulmonary disease) Discharge Diagnosis AECOPD-Day number to steroids Hypercapnia-respiratory failure requiring higher doses of O2 h/o uneventful left knee amputation by Dr. Marcelo and [facility] 09/2018 Recent [place] 8 weeks ago Smoker Coarse breath sounds PVD Buerger's disease Patient is encouraged to give time for the steroids to work and get him off the oxygen. In the event that he decides to go AMA and trying to set up oxygen for him if he meets requirements. Clinical Quality Measures DVT/VTE Risk/Contraindication: Risk Factor Score Per Nursin RFS Level Per Nursing on Admit: 4+=Very High DORINDA TURCIOS MD Dec 05, 2019 15:21
== END 2019-12-05 16:00 | disposition home or self-care (01) | DRG 189 ==
LOC: EDUNIT# 20:13 → ER 20:15 → ICU 22:20 → 4TH 12-04 15:11
PROVIDERS: ADMIT Internal Medicine; ATTEND Internal Medicine
DX: J96.21 Acute and chronic respiratory failure with hypoxia (principal); J96.22 Acute and chronic respiratory failure with hypercapnia; J44.1 Chronic obstructive pulmonary disease with (acute) exacerbation; I11.0 Hypertensive heart disease with heart failure; I50.22 Chronic systolic (congestive) heart failure; I73.1 Thromboangiitis obliterans [Buerger's disease]; D68.59 Other primary thrombophilia; F17.210 Nicotine dependence, cigarettes, uncomplicated; I25.10 Atherosclerotic heart disease of native coronary artery without angina pectoris; I25.2 Old myocardial infarction; E78.5 Hyperlipidemia, unspecified; K21.9 Gastro-esophageal reflux disease without esophagitis; M54.9 Dorsalgia, unspecified; M10.9 Gout, unspecified; I73.9 Peripheral vascular disease, unspecified; E66.9 Obesity, unspecified; Z68.37 Body mass index [BMI] 37.0-37.9, adult; Z95.820 Peripheral vascular angioplasty status with implants and grafts; Z86.711 Personal history of pulmonary embolism; Z86.718 Personal history of other venous thrombosis and embolism; Z95.5 Presence of coronary angioplasty implant and graft; Z89.612 Acquired absence of left leg above knee
CPT/HCPCS: 36415; 36600; 71045; 71275; 80053; 80061; 80306; 81000; 82805; 83605; 83735; 83874; 83880; 84484; 85007; 85025; 85027; 85379; 85610; 85730; 87040; 87088; 93005; 93041; 94640; 94660; 94761

== ENCOUNTER → 2020-04-01 | Outpatient (CLI) | payer MEDICARE, MEDICAID ==
[~2020-04-01] MED LIST changes: +CHOL100045 PO; +FLUT12AE4 IH; +IPRA3AMP31 INH; +PANT40TA2 PO; +PRED10TA22 PO
== END ==
LOC: CARD 08:29
PROVIDERS: ATTEND Internal Medicine Cardiovascular Disease
DX: I11.0 Hypertensive heart disease with heart failure (principal); I50.9 Heart failure, unspecified; I82.409 Acute embolism and thrombosis of unspecified deep veins of unspecified lower extremity; I26.99 Other pulmonary embolism without acute cor pulmonale
CPT/HCPCS: 93306

== ENCOUNTER → 2020-08-12 | Outpatient (CLI) | payer MEDICARE, MEDICAID ==
[~2020-08-12] MED LIST changes: +ASPI-1238 PO; -ASPI-983 PO; +RT-ALBUTEROL SULF 2.5 MG/3 ML PRE-MIX VIAL INH ONE
== END ==
LOC: RT 08:00
PROVIDERS: ATTEND Internal Medicine Critical Care Medicine
DX: J44.9 Chronic obstructive pulmonary disease, unspecified (principal)
CPT/HCPCS: 94060; 94726; 94729

== ENCOUNTER → 2020-09-29 | Outpatient (CLI) | payer MEDICARE, MEDICAID ==
[~2020-09-29] MED LIST changes: -RT-ALBUTEROL SULF 2.5 MG/3 ML PRE-MIX VIAL INH ONE
== END ==
LOC: LABNPT 05:21
PROVIDERS: ATTEND Internal Medicine Critical Care Medicine
DX: Z01.89 Encounter for other specified special examinations (principal); Z53.9 Procedure and treatment not carried out, unspecified reason

== ENCOUNTER → 2020-10-17 | Outpatient (CLI) | payer MEDICARE, MEDICAID ==
[~2020-10-17] MED LIST changes: -GEMF600T8 PO; +GEMF600T88 PO; -ISOS30TA3 PO; +ISOS30TA82 PO
== END ==
LOC: LABNPT 06:01
PROVIDERS: ATTEND Nurse Practitioner Family
DX: Z20.822 Contact with and (suspected) exposure to COVID-19 (principal)
CPT/HCPCS: 87635

== ENCOUNTER → 2020-11-10 | Outpatient (CLI) | payer MEDICARE, MEDICAID | LOC: LABNPT 08:27 | PROVIDERS: ATTEND Internal Medicine Critical Care Medicine | DX: Z01.89 Encounter for other specified special examinations (principal); Z20.822 Contact with and (suspected) exposure to COVID-19 | CPT/HCPCS: 87635 ==

== ENCOUNTER → 2020-11-28 | Outpatient (CLI) | payer MEDICARE, MEDICAID | LOC: LABNPT 07:52 | PROVIDERS: ATTEND Nurse Practitioner Family | DX: Z20.822 Contact with and (suspected) exposure to COVID-19 (principal) | CPT/HCPCS: 87635 ==

== ENCOUNTER 2020-11-29 19:53 | Outpatient (CLI) | payer MEDICARE, MEDICAID | END 2020-11-30 06:00 | disposition home or self-care (01) | LOC: SLEEP 19:53 | PROVIDERS: ATTEND Nurse Practitioner Family | DX: Z01.89 Encounter for other specified special examinations (principal); G47.30 Sleep apnea, unspecified; G47.50 Parasomnia, unspecified; G47.10 Hypersomnia, unspecified | CPT/HCPCS: 95810 ==

== ENCOUNTER 2021-01-14 22:34 | Emergency (ER) | payer MEDICARE, MEDICAID ==
[~2021-01-14] VITALS: Ht 162.6 cm; Wt 99.7 kg
[2021-01-14 22:45] VITALS: BP 167/101
[2021-01-14 23:10] LABS: BASOPHILS # (AUTO) 0.1 10^3/uL (0.0-0.1); BASOPHILS % (AUTO) 1 % (0-10); EOSINOPHILS # (AUTO) 0.4 10^3/uL (0.0-0.3); EOSINOPHILS % (AUTO) 3 % (0-10); HEMATOCRIT 45 % (40-54); HEMOGLOBIN 14.7 g/dL (13.3-17.7); LYMPHOCYTES # (AUTO) 3.2 10^3/uL (1.0-4.0); LYMPHOCYTES % (AUTO) 22 % (12-44); MEAN CORPUSCULAR HEMOGLOBIN 30 pg (25-34); MEAN CORPUSCULAR HGB CONC 33 g/dL (32-36); MEAN CORPUSCULAR VOLUME 93 fL (80-99); MEAN PLATELET VOLUME 9.5 fL (9.0-12.2); MONOCYTES # (AUTO) 1.1 10^3/uL (0.0-1.0); MONOCYTES % (AUTO) 7 % (0-12); NEUTROPHILS # (AUTO) 9.8 10^3/uL (1.8-7.8); NEUTROPHILS % (AUTO) 67 % (42-75); PLATELET COUNT 322 10^3/uL (130-400); WHITE BLOOD COUNT 14.7 10^3/uL (4.3-11.0)
[2021-01-14 23:14] LABS: BILIRUBIN,URINE NEGATIVE (NEGATIVE); CLARITY,URINE CLEAR; COLOR,URINE YELLOW; GLUCOSE, URINE (UA) NEGATIVE (NEGATIVE); KETONES,URINE NEGATIVE (NEGATIVE); LEUKOCYTE ESTERASE ,URINE NEGATIVE (NEGATIVE); NITRITE,URINE NEGATIVE (NEGATIVE); PH,URINE 6.5 (5-9); PROTEIN,URINE NEGATIVE (NEGATIVE)
[2021-01-14 23:22] LABS: BACTERIA,URINE NEGATIVE /HPF; SQUAMOUS EPITHELIAL CELL,UR RARE /HPF
[2021-01-14 23:22] LABS: ALBUMIN 3.8 GM/DL (3.2-4.5); CHLORIDE 99 MMOL/L (98-107)
[2021-01-14 23:23] LABS: SODIUM 140 MMOL/L (135-145)
[2021-01-14 23:24] LABS: AMYLASE 25 U/L (25-125); CALCIUM 9.7 MG/DL (8.5-10.1)
[2021-01-14 23:25] LABS: GLUCOSE 115 MG/DL (70-105); TOTAL PROTEIN 7.2 GM/DL (6.4-8.2)
[2021-01-14 23:26] LABS: CARBON DIOXIDE 31 MMOL/L (21-32)
[2021-01-14 23:27] LABS: BILIRUBIN,TOTAL 0.6 MG/DL (0.1-1.0)
[2021-01-14 23:28] LABS: ALKALINE PHOSPHATASE 105 U/L (40-136)
[2021-01-14 23:29] LABS: CREATININE SERUM 0.81 MG/DL (0.60-1.30); GFR ESTIMATED > 60; INR 0.9 (0.8-1.4); PROTHROMBIN TIME PATIENT 12.7 SEC (12.2-14.7)
[2021-01-14 23:30] LABS: BUN/CREATININE RATIO 6; EOSINOPHILS % (MANUAL) 3 %; LYMPHOCYTES % (MANUAL) 21 %; MONOCYTES % (MANUAL) 6 %; NEUTROPHILS % (MANUAL) 70 %; RBC MORPH NORMAL
[2021-01-14 23:31] LABS: ALANINE AMINOTRANSFERASE 20 U/L (0-55); MAGNESIUM 2.1 MG/DL (1.6-2.4)
[2021-01-14 23:32] LABS: LIPASE 12 U/L (8-78)
--- NOTE | 2021-01-15 08:23 | Diagnostic Imaging Report ---
HISTORY: Chest pain, left upper quadrant pain COMPARISON: 12/04/2019 TECHNIQUE: Frontal view of the chest FINDINGS: Lung volumes are mildly large. The cardiac silhouette is normal in size. There is no pleural effusion or pneumothorax. No focal consolidation is seen. IMPRESSION: 1. No acute pulmonary abnormality. Dictated by: Dictated on workstation # [id number]
== END 2021-01-15 00:09 | disposition left against medical advice (07) ==
LOC: EDUNIT# 22:34 → ER 22:36
DX: R07.9 Chest pain, unspecified (principal)
CPT/HCPCS: 36415; 71045; 80053; 81000; 82150; 83690; 83735; 83874; 84484; 85007; 85027; 85610; 85730; 93041

== ENCOUNTER 2021-01-15 09:34 | Emergency (ER) | payer MEDICARE, MEDICAID ==
[~2021-01-15] VITALS: Ht 162 cm; Wt 95.2 kg
--- NOTE | 2021-01-15 10:01 | ED Abdominal Pain ---
General Chief Complaint: Abdominal/GI Problems Stated Complaint: L SIDE PAIN Nursing Triage Note: PT PRESENTS TO ED VIA POV FROM HOME WITH COMPLAINTS OF LUQ PAIN X 1 MONTH. REPORTS HE WAS SEEN IN ED LAST NIGHT BUT LEFT AMA BECAUSE HE SAID IT WAS BUSY AND DIDNT WANT TO WAIT LONGER. Sepsis Screen: No Definite Risk Source of Information: Patient, Family Exam Limitations: No Limitations History of Present Illness Date Seen by Provider: January 15, 2021 Time Seen by Provider: 09:50 Initial Comments Patient is a 50-year-old male who presents to the emergency department today with a chief complaint of left lower rib/left upper quadrant abdominal pain ongoing for about a month. Patient states nothing makes his pain any better, palpation of the area makes it worse. Patient states that he has seen [facility] and was given some lidocaine patches but he ran out of them. He also went to the clinic on Saturday and was told that there was not much else that they could do other than for him to come to the emergency department and possibly get a CAT scan. Patient denies any problems with bowel or bladder. He states he did get nauseated and dry heaves this morning. Patient did come to the emergency department last night at around 11 PM and had a work-up started but left AMA because he was tired of waiting for results. Patient denies any fevers, chills, increasing or worsening shortness of breath or cough. No rashes. [facility] He states he has not seen him for the pain. Patient has a history of coronary artery disease and peripheral vascular disease. He is status post cardiac stents as well as a left [id number]-[id number] amputation secondary to "blood clots in his leg". Patient states he takes oxycodone chronically. All other review of systems reviewed and negative except as stated above. Timing/Duration: Constant (X1 month) Severity/Quality: Moderate Location: LUQ Radiation: No Radiation Activities at Onset: None Modifying Factors: Worsens With Lying down, Worsens With Palpation Associated Symptoms: Denies Symptoms Allergies and Home Medications Allergies Coded Allergies: Penicillins (Unverified Allergy, Mild, 01/27/09) pneumococcal vaccine (Verified Allergy, Unknown, 12/04/19) Home Medications Allopurinol 100 Mg Tablet, 100 MG PO DAILY, (Reported) Aspirin 81 Mg Tablet., 81 MG PO HS, (Reported) Atorvastatin Calcium 40 Mg Tablet, 40 MG PO HS, (Reported) Cholecalciferol (Vitamin D3) 25 Mcg Tablet, 25 MCG PO DAILY, (Reported) Clopidogrel Bisulfate 75 Mg Tablet, 75 MG PO DAILY, (Reported) Fluticasone/Salmeterol 12 Gm Hfa.aer.ad, 0 PUFF IH RTBID Prescribed by: DORINDA TURCIOS on 12/05/191510 Ipratropium/Albuterol Sulfate 3 Ml Ampul.neb, 3 ML INH Q2HR PRN for SOA Prescribed by: DORINDA TURCIOS on 12/05/191510 Isosorbide Mononitrate 30 Mg Tab.er.24h, 30 MG PO DAILY, (Reported) Metoprolol Tartrate 50 Mg Tablet, 50 MG PO BID, (Reported) [place] 3 Polyunsat Fatty Acids 1,000 Mg Cap, 1,000 MG PO BID, (Reported) Pantoprazole Sodium 40 Mg Tablet.dr, 40 MG PO DAILY, (Reported) Prednisone 10 Mg Tab.ds.pk, 10 MG PO DAILY Take 6 tabs(60mg)daily,decrease by 1 tab(10mg)every other day. Prescribed by: DORINDA TURCIOS on 12/05/191510 Patient Home Medication List Home Medication List Reviewed: Yes Review of Systems Review of Systems Constitutional: see HPI EENTM: No Symptoms Reported Respiratory: Other (Left lower chest wall pain/left upper quadrant abdominal pain) Cardiovascular: No Symptoms Reported Gastrointestinal: Abdominal Pain Genitourinary: No Symptoms Reported Musculoskeletal: no symptoms reported Skin: no symptoms reported Psychiatric/Neurological: No Symptoms Reported All Other Systems Reviewed Negative Unless Noted: Yes Past Lksisdk-Wpxklr-Nohsma Hx Patient Social History Alcohol Use: Denies Use Smoking Status: Current Everyday Smoker Type Used: Cigarettes 2nd Hand Smoke Exposure: No Recent Infectious Disease Expo: No Recent Hopitalizations: No Immunizations Up To Date PED Vaccines UTD: Yes Date of Pneumonia Vaccine: Jul 28, 2012 Date of Influenza Vaccine: Sep 25, 2018 Seasonal Allergies Seasonal Allergies: No Past Medical History Surgeries: Yes (LEFT AKA) Amputation, Cardiac, Coronary Stent, Orthopedic Respiratory: Yes Pulmonary Embolism Currently Using CPAP: No Currently Using BIPAP: No Cardiac: Yes (DE X 2; STENTS X 4; -NSTEMI 07/11/17 WITH 1 STENT PLACED) Coronary Artery Disease, Deep Vein Thrombosis, Heart Attack, High Cholesterol, Hypertension Neurological: No Reproductive Disorders: No Genitourinary: No Gastrointestinal: Yes Gastroesophageal Reflux Musculoskeletal: Yes (HYDROCODONE + IBUPROFEN DAILY) Amputee, Chronic Back Pain, Gout Endocrine: No HEENT: No Cancer: No Psychosocial: No Integumentary: No Blood Disorders: Yes (PROTEIN S DEFICIENCY--DVT'S AND P.E.'S AND DE X 2) Family Medical History Arthritis G8 BROTHER Blood clots 19 MOTHER ( of blood clot) Cardiac disorder 19 FATHER Diabetes mellitus G8 BROTHER FH: cancer paternal grandmother FHx: inflammatory bowel disease G8 BROTHER No Family History of: FH: sudden cardiac (SCD) Heart Disease, Vascular Disease Physical Exam Vital Signs Vital Signs - First Documented 01/15/21 09:51 Temp 35.1 Pulse 75 Resp 18 B/P (MAP) 142/92 (109) Pulse Ox 94 Capillary Refill : Less Than 3 Seconds Height/Weight/BMI Height: 5'4.00" Weight: 190lbs. 1.6oz. 86.910680qc; 36.00 BMI Method:Stated General Appearance: WD/WN, no apparent distress HEENT: PERRL/EOMI Respiratory: lungs clear, normal breath sounds, no respiratory distress, no accessory muscle use Cardiovascular: regular rate, rhythm, other (Left lower rib tenderness to palpation anterior laterally) Gastrointestinal: normal bowel sounds, soft, tenderness (Left upper quadrant) Extremities: non-tender, normal inspection, no pedal edema, no calf tenderness, other (Left gxglh-lem-bmbr amputation) Neurologic/Psychiatric: alert, normal mood/affect, oriented x 3 Skin: normal color, warm/dry Progress/Results/Core Measures Results/Orders My Orders Orders - SAMARA WOO MD Ct Abdomen/Pelvis Wo (01/15/21 10:04) Vital Signs/I&O 01/15/21 09:51 Temp 35.1 Pulse 75 Resp 18 B/P (MAP) 142/92 (109) Pulse Ox 94 Blood Pressure Mean: 109 Progress Progress Note : Time: 10:05 Progress Note Patient was seen and examined last evening however I cannot find documentation related to his exam. He had basic laboratory studies obtained such as a CBC, Chem-12 cardiac enzymes, urinalysis and coagulation profile. Patient's labs are reviewed by me this morning and he has a mild leukocytosis at 14,000. No abnormalities to chemistry, urinalysis, cardiac enzymes or coagulation studies. Chest x-ray is reviewed from yesterday and shows no acute cardiopulmonary abnormalities. I also looked at his EKG which was normal. Apparently the plan was to obtain a CT scan of the abdomen and pelvis last evening, this will be ordered this morning to rule out any other serious pathology. The patient's exa m is relatively benign. He has nice soft distended abdomen with bowel sounds present. He is quite tender to palpation over the left lower ribs and left upper quadrant. No rebound or involuntary guarding is appreciated. He is afebrile, nontachycardic with a normal blood pressure. Disposition pending CT scan. 1213 CT scan of the abdomen and pelvis is unremarkable for any acute intra-abdominal pathology. Patient's vital signs are stable. Again I looked at the labs taken approximately 12 hours prior to this visit and all of them are basically within normal limits. He did have a mild leukocytosis at 14,000. He does not have any complaints right now of illness. He rates his pain a "a 7. He is taking oxycodone at home I am going to give him a dose here before he leaves. I have strongly encouraged him to follow-up with his primary care physician. He is comfortable with this plan of care. All questions are sought and answered. Patient is stable for discharge. Diagnostic Imaging Diagonstic Imaging: CT Comments [facility], [place] NAME: HOANG ALVARADO [facility] REC#: [id number] PT STATUS: REG ER : 1970 PHYSICIAN: SAMARA WOO MD ADMIT DATE: 01/15/21/ER Draft Date of Exam:01/15/21 CT ABDOMEN/PELVIS WO PROCEDURE: CT abdomen and pelvis without contrast. TECHNIQUE: Multiple contiguous axial images were obtained through the abdomen and pelvis without the use of intravenous contrast. Auto Exposure Controls were utilized during the CT exam to meet ALARA standards for radiation dose reduction. INDICATION: Severe left upper quadrant pain. COMPARISON: 10/17/2017 FINDINGS: The lung bases are clear. The heart is normal in size. There is no pericardial effusion. There is diffuse fatty infiltration of the liver. No focal lesions are seen. A calcified granuloma is noted. The spleen appears normal. The pancreas is unremarkable. The adrenal glands appear normal. The kidneys demonstrate no hydronephrosis or calculi. The appendix is normal. The bowel loops are nondistended without obstruction. No free fluid or free air is seen. There is mild atherosclerosis of the bifurcation. Small surgical clips are noted. No acute osseous abnormality is identified. There is mild atrophy of the left gluteal musculature relative to the right. IMPRESSION: 1. No acute abnormality is seen in the abdomen or pelvis. 2. Hepatic steatosis. 3. Left gluteal muscular atrophy. Dictated on workstation # [id number] Dict: 01/15/21 1023 Trans: 01/15/21 1034 [id number] Interpreted by: KLAUS BARBER MD Electronically signed by: Departure Impression Primary Impression: Left flank pain, chronic Disposition: 01 HOME, SELF-CARE Condition: Stable Departure-Patient Inst. Decision time for Depature: 12:14 Referrals: VINAY GUO MD (PCP/Family) Primary Care Physician Patient Instructions: Abdominal Pain, Adult ED Add. Discharge Instructions: Take your pain medications as directed at home. Please call and follow-up with your primary care physician this week. Return to the emergency room for any worsening pain, fever, vomiting or other emergent concerning symptoms SAMARA WOO MD January 15, 2021 10:01
--- NOTE | 2021-01-15 10:35 | Diagnostic Imaging Report ---
PROCEDURE: CT abdomen and pelvis without contrast. TECHNIQUE: Multiple contiguous axial images were obtained through the abdomen and pelvis without the use of intravenous contrast. Auto Exposure Controls were utilized during the CT exam to meet ALARA standards for radiation dose reduction. INDICATION: Severe left upper quadrant pain. COMPARISON: 10/17/2017 FINDINGS: The lung bases are clear. The heart is normal in size. There is no pericardial effusion. There is diffuse fatty infiltration of the liver. No focal lesions are seen. A calcified granuloma is noted. The spleen appears normal. The pancreas is unremarkable. The adrenal glands appear normal. The kidneys demonstrate no hydronephrosis or calculi. The appendix is normal. The bowel loops are nondistended without obstruction. No free fluid or free air is seen. There is mild atherosclerosis of the bifurcation. Small surgical clips are noted. No acute osseous abnormality is identified. There is mild atrophy of the left gluteal musculature relative to the right. IMPRESSION: 1. No acute abnormality is seen in the abdomen or pelvis. 2. Hepatic steatosis. 3. Left gluteal muscular atrophy. Dictated by: Dictated on workstation # [id number]
[2021-01-15] MEDS ORDERED: oxyCODONE/APAP 5/325MG (PERCOCET 5) TABLET PO ONE (12:30)
[2021-01-15 12:37] VITALS: BP 132/90
== END 2021-01-15 12:35 | disposition home or self-care (01) ==
LOC: EDUNIT# 09:34 → ER 09:36
DX: G89.29 Other chronic pain (principal); R10.12 Left upper quadrant pain; D72.829 Elevated white blood cell count, unspecified; I11.0 Hypertensive heart disease with heart failure; I50.9 Heart failure, unspecified; I25.10 Atherosclerotic heart disease of native coronary artery without angina pectoris; E78.00 Pure hypercholesterolemia, unspecified; M54.9 Dorsalgia, unspecified; I25.2 Old myocardial infarction; M10.9 Gout, unspecified; K21.9 Gastro-esophageal reflux disease without esophagitis; F17.210 Nicotine dependence, cigarettes, uncomplicated; Z95.5 Presence of coronary angioplasty implant and graft; Z89.612 Acquired absence of left leg above knee; Z79.82 Long term (current) use of aspirin; Z79.899 Other long term (current) drug therapy; Z79.891 Long term (current) use of opiate analgesic
CPT/HCPCS: 74176

== ENCOUNTER → 2021-01-27 | Outpatient (CLI) | payer MEDICARE, MEDICAID | LOC: CARD 10:30 | PROVIDERS: ATTEND Internal Medicine Cardiovascular Disease | DX: I25.10 Atherosclerotic heart disease of native coronary artery without angina pectoris (principal); I10 Essential (primary) hypertension | CPT/HCPCS: 93306 ==

== ENCOUNTER → 2021-05-08 | Outpatient (CLI) | payer MEDICARE, MEDICAID ==
[~2021-05-08] MED LIST changes: +RT-ALBUTEROL SULF 2.5 MG/3 ML PRE-MIX VIAL INH ONE; -SULF1TAB35 PO; +SULF1TAB38 PO
== END ==
LOC: RT 11:00
PROVIDERS: ATTEND Family Medicine
DX: Z02.71 Encounter for disability determination (principal)
CPT/HCPCS: 94060; 94729

== ENCOUNTER 2021-08-07 20:01 | Emergency (ER) | payer MEDICARE, MEDICAID ==
[~2021-08-07] VITALS: Ht 162.6 cm; Wt 90.7 kg
[~2021-08-07 20:01] MED LIST changes: +CHOL10004 PO; -CHOL100045 PO; -LISI2.5T PO; +LISI2.5T13 PO; -RT-ALBUTEROL SULF 2.5 MG/3 ML PRE-MIX VIAL INH ONE; +TIZA-186 PO; -TIZA4TAB4 PO
[2021-08-07 20:06] VITALS: BP 173/90
--- NOTE | 2021-08-07 20:39 | ED Abdominal Pain ---
General Chief Complaint: Abdominal/GI Problems Stated Complaint: L SIDE ABD PAIN Nursing Triage Note: PT TO RM 6 VIA PERSONAL WC W REPORTS OF LUQ PAIN X3-4 MONTHS. PT A&OX4. Source of Information: Patient, Spouse Exam Limitations: Other (PT AND BOTH LIMITED HISTORIANS) History of Present Illness Date Seen by Provider: Aug 07, 2021 Time Seen by Provider: 20:18 Initial Comments PT ARRIVES VIA POV FROM HOME WITH C/O LEFT UPPER QUADRANT/FLANK PAIN "FOR OVER 3-4 MONTHS" NO DIFFERENT TODAY IN ANY WAY NO NAUSEA/VOMITING/DIARRHEA/CONSTIPATION--HAD NORMAL BM TODAY, NO BLACK/BLOODY/TARRY STOOLS NOTHING WORSENS OR IMPROVES PAIN, BUT DOES STATE HE GETS REALLY FULL WHEN HE EATS AND IS REALLY GASSY AND BELCHES ALOT WELL. ATE JUST PRIOR TO ARRIVAL, BUT IT DID NOT INCREASE THE PAIN NO URINARY SYMPTOMS, VOIDED JUST PRIOR TO ARRIVAL NO FEVER NO RADIATION OF PAIN NOTHING WORSENS OR IMPROVES PAIN PT TAKES OXYCODONE EVERY 4-6 HOURS FOR CHRONIC PAIN PT ALSO TAKES GABAPENTIN FOR CHRONIC PAIN STATES HE HAS NOT SPECIFICALLY SEEN ANYONE FOR THIS PROBLEM ( ON REVIEW OF OLD RECORDS, PT WAS SEEN IN THIS ER IN DECEMBER OF THIS YEAR FOR THIS SAME PROBLEM AND HAD REPORTED AT THAT TIME THAT THIS PAIN WAS CHRONIC ) HAS HAD ROUTINE APPOINTMENTS AT [facility], AND JUST SAW DR. GUO LAST WEEK FOR ROUTINE EXAM. WAS PRESCRIBED A LIDOCAINE PATCH, BUT PT IS NOT WEARING AT THIS TIME ( OLD RECORDS FROM DECEMBER HAD ALSO REPORTED THAT HE HAD PREVIOUSLY BEEN GIVEN LIDOCAINE PATCHES FOR THIS PROBLEM) ALSO HAD ROUTINE APPOINTMENT WITH DR. DE SOUZA, MANAGER CARDIAC, LAST WEEK. ONLY ABDOMINAL SURGERY, WAS TO LEFT MID ABDOMEN FOR "NERVE PAIN" AFTER HE HAD LEFT ABOVE THE KNEE AMPUTATION. NO RECENT MEDICATION CHANGES PCP: DR GUO/[facility] MANAGER CARDIAC: DR. DE SOUZA Allergies and Home Medications Allergies Coded Allergies: Penicillins (Unverified Allergy, Mild, 01/27/09) pneumococcal vaccine (Verified Allergy, Unknown, 12/04/19) Patient Home Medication List Home Medication List Reviewed: Yes Allopurinol (Allopurinol) 100 Mg Tablet, 100 MG PO DAILY, (Reported) Entered as Reported by: NIRAV SORIANO on 07/12/18 0845 Aspirin (Aspirin EC) 81 Mg Tablet., 81 MG PO HS, (Reported) Entered as Reported by: FELIBERTO CONNOR on 09/26/18 1028 Atorvastatin Calcium (Atorvastatin Calcium) 40 Mg Tablet, 40 MG PO HS, (Reported) Entered as Reported by: FELIBERTO CONNOR on 07/12/17 0832 Cholecalciferol (Vitamin D3) (Vitamin D3) 25 Mcg Tablet, 25 MCG PO DAILY, (Reported) Entered as Reported by: TERESA CORREA on 12/04/19 0851 Clopidogrel Bisulfate (Plavix) 75 Mg Tablet, 75 MG PO DAILY, (Reported) Entered as Reported by: FELIBERTO CONNOR on 09/26/18 1040 Fluticasone/Salmeterol (Advair Hfa 115-21 Mcg Inhaler) 12 Gm Hfa.aer.ad, 0 PUFF IH RTBID Prescribed by: DORINDA TURCIOS on 12/05/19 1511 Hyoscyamine Sulfate (Levsin-Sl) 0.125 Mg Tab.subl, 0.25 MG SL Q4H Prescribed by: KIKO VILLELA on 08/07/21 2201 Ipratropium/Albuterol Sulfate (Iprat-Albut 0.5-3(2.5) mg/3 ml) 3 Ml Ampul.neb, 3 ML INH Q2HR PRN for SOA Prescribed by: DORINDA TURCIOS on 12/05/19 1511 Isosorbide Mononitrate (Isosorbide Mononitrate ER) 30 Mg Tab.er.24h, 30 MG PO DAILY, (Reported) Entered as Reported by: NIRAV SORIANO on 07/12/18 0845 Metoprolol Tartrate (Metoprolol Tartrate) 50 Mg Tablet, 50 MG PO BID, (Reported) Entered as Reported by: FELIBERTO CONNOR on 06/15/19 1023 [place] 3 Polyunsat Fatty Acids (Fish Oil 1,000 mg Capsule) 1,000 Mg Cap, 1,000 MG PO BID, (Reported) Entered as Reported by: FELIBERTO CONNOR on 07/12/17 0832 Pantoprazole Sodium (Protonix) 40 Mg Tablet.dr, 40 MG PO DAILY, (Reported) Entered as Reported by: TERESA CORREA on 12/04/19 0850 Prednisone (Prednisone) 10 Mg Tab.ds.pk, 10 MG PO DAILY Prescribed by: DORINDA TURCIOS on 12/05/19 1511 Review of Systems Review of Systems Constitutional: no symptoms reported Respiratory: No Symptoms Reported Cardiovascular: No Symptoms Reported Gastrointestinal: See HPI, Abdominal Pain; Denies Constipated, Denies Diarrhea, Denies Nausea, Denies Poor Appetite, Denies Vomiting Genitourinary: No Symptoms Reported Musculoskeletal: see HPI (CHRONIC GENERALIZED PAIN) Skin: no symptoms reported Psychiatric/Neurological: No Symptoms Reported Endocrine: No Symptoms Reported Hematologic/Lymphatic: No Symptoms Reported Past Upkdxty-Ehpgvm-Vhwios Hx Patient Social History Tobacco Use?: Yes Tobacco type used: Cigarettes Smoking Status: Current Everyday Smoker Use of E-Cig and/or Vaping dev: No Substance use?: No Alcohol Use?: No Immunizations Up To Date PED Vaccines UTD: Yes Influenza Vaccine Up-to-Date: No; Not Current First/Initial COVID19 Vaccinat: 2020 Second COVID19 Vaccination Esteban: JULY 2021 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: [employer] Seasonal Allergies Seasonal Allergies: No Past Medical History Surgery/Hospitalization HX: LEFT ABOVE KNEE AMPUTATION, COPD Surgeries: Yes (LEFT AKA) Amputation, Cardiac, Coronary Stent, Orthopedic Respiratory: Yes (O2 DEPENDENT) Pulmonary Embolism, COPD Currently Using CPAP: No Currently Using BIPAP: No Cardiac: Yes (ME X 2; STENTS X 4; -NSTEMI 07/11/17 WITH 1 STENT PLACED) Coronary Artery Disease, Deep Vein Thrombosis, Heart Attack, High Cholesterol, Hypertension Neurological: No Reproductive Disorders: No Genitourinary: No Gastrointestinal: Yes Gastroesophageal Reflux Musculoskeletal: Yes (OXYCODONE, GABAPENTIN + IBUPROFEN DAILY;CHRONIC BACK/L LEG PHANTOM PAIN) Amputee, Chronic Back Pain, Gout Endocrine: No (OBESITY) HEENT: No Cancer: No Psychosocial: No Integumentary: No Blood Disorders: Yes (PROTEIN S DEFICIENCY--DVT'S AND P.E.'S AND ME X 2) Family Medical History Arthritis G8 BROTHER Blood clots 19 MOTHER ( of blood clot) Cardiac disorder 19 FATHER Diabetes mellitus G8 BROTHER FH: cancer paternal grandmother FHx: inflammatory bowel disease G8 BROTHER No Family History of: FH: sudden cardiac (SCD) Heart Disease, Vascular Disease SOCIAL HISTORY: -SMOKES 1 PPD -ETOH-DENIES USE -DRUGS-DENIES USE PAST SURGICAL HISTORY: -LEFT ABOVE THE KNEE AMPUTATION -SURGERY TO LEFT MID ABDOMEN FOR "NERVE PAIN" FROM LEFT LEG AMPUTATION -CARDIAC CATHS WITH STENTS X 4 LAST CARDIAC CATH DONE HERE 06/15/[address] DE SOUZA: CONCLUSION: 1. Patent stent in the obtuse marginal branch and multiple stents in the right coronary artery with small vessel disease nonobstructive disease 2. Prominent left ventricle with mild diffuse left ventricular hypokinesia estimated ejection fraction 45 percent, normal left ventricular end-diastolic pressure 3. Normal aortic arch and great vessels of the neck DISCUSSION AND RECOMMENDATION: Chest pain is probably due to small vessel disease, mild troponin leak, not considered myocardial infarction. Patent arteries. Chronic compensated left ventricular systolic dysfunction. Medical therapy is recommended, educated on smoking cessation Physical Exam Vital Signs Vital Signs - First Documented 08/07/21 20:06 Temp 36.6 Pulse 91 Resp 22 B/P (MAP) 173/90 (117) Pulse Ox 95 O2 Delivery Nasal Cannula O2 Flow Rate 2.00 Capillary Refill : Less Than 3 Seconds Height/Weight/BMI Height: 5'4.00" Weight: 190lbs. 1.6oz. 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, no motor/sensory deficits, alert, oriented x 3, other (FLAT AFFECT) Skin: normal color, warm/dry Progress/Results/Core Measures Results/Orders Lab Results Laboratory Tests Test 08/07/21 20:15 08/07/21 20:30 08/07/21 20:42 Range/Units SARS-CoV-2 RNA (RT-PCR) Not Detected Not Detecte White Blood Count 10.7 4.3-11.0 10^3/uL Red Blood Count 5.17 4.30-5.52 10^6/uL Hemoglobin 14.9 13.3-17.7 g/dL Hematocrit 48 40-54 % Mean Corpuscular Volume 93 80-99 fL Mean Corpuscular Hemoglobin 29 25-34 pg Mean Corpuscular Hemoglobin Concent 31 L 32-36 g/dL Red Cell Distribution Width 15.2 H 10.0-14.5 % Platelet Count 264 130-400 10^3/uL Mean Platelet Volume 8.5 L 9.0-12.2 fL Immature Granulocyte % (Auto) 1 % Neutrophils (%) (Auto) 64 42-75 % Lymphocytes (%) (Auto) 24 12-44 % Monocytes (%) (Auto) 7 0-12 % Eosinophils (%) (Auto) 3 0-10 % Basophils (%) (Auto) 1 0-10 % Neutrophils # (Auto) 6.9 1.8-7.8 10^3/uL Lymphocytes # (Auto) 2.6 1.0-4.0 10^3/uL Monocytes # (Auto) 0.8 0.0-1.0 10^3/uL Eosinophils # (Auto) 0.4 H 0.0-0.3 10^3/uL Basophils # (Auto) 0.1 0.0-0.1 10^3/uL Immature Granulocyte # (Auto) 0.1 0.0-0.1 10^3/uL Sodium Level 142 135-145 MMOL/L Potassium Level 3.8 3.6-5.0 MMOL/L Chloride Level 97 L 98-107 MMOL/L Carbon Dioxide Level 34 H 21-32 MMOL/L Anion Gap 11 5-14 MMOL/L Blood Urea Nitrogen 5 L 7-18 MG/DL Creatinine 0.79 0.60-1.30 MG/DL Estimat Glomerular Filtration Rate 104 BUN/Creatinine Ratio 6 Glucose Level 124 H 70-105 MG/DL Calcium Level 9.5 8.5-10.1 MG/DL Corrected Calcium 9.7 8.5-10.1 MG/DL Total Bilirubin 0.3 0.1-1.0 MG/DL Aspartate Amino Transf (AST/SGOT) 11 5-34 U/L Alanine Aminotransferase (ALT/SGPT) 11 0-55 U/L Alkaline Phosphatase 96 40-136 U/L Total Protein 7.3 6.4-8.2 GM/DL Albumin 3.8 3.2-4.5 GM/DL Amylase Level 27 25-125 U/L Lipase 14 8-78 U/L Urine Color YELLOW Urine Clarity CLEAR Urine pH 7.5 5-9 Urine Specific [place] 1.010 L 1.016-1.022 Urine Protein NEGATIVE NEGATIVE Urine Glucose (UA) NEGATIVE NEGATIVE Urine Ketones NEGATIVE NEGATIVE Urine Nitrite NEGATIVE NEGATIVE Urine Bilirubin NEGATIVE NEGATIVE Urine Urobilinogen 0.2 < = 1.0 MG/DL Urine Leukocyte Esterase NEGATIVE NEGATIVE Urine RBC (Auto) NEGATIVE NEGATIVE Urine RBC NONE /HPF Urine WBC NONE /HPF Urine Squamous Epithelial Cells NONE /HPF Urine Crystals NONE /LPF Urine Bacteria NEGATIVE /HPF Urine Casts NONE /LPF Urine Mucus NEGATIVE /LPF Urine Culture Indicated NO Urine Opiates Screen NEGATIVE NEGATIVE Urine Oxycodone Screen POSITIVE H NEGATIVE Urine Methadone Screen NEGATIVE NEGATIVE Urine Propoxyphene Screen NEGATIVE NEGATIVE Urine Barbiturates Screen NEGATIVE NEGATIVE Ur Tricyclic Antidepressants Screen NEGATIVE NEGATIVE Urine Phencyclidine Screen NEGATIVE NEGATIVE Urine Amphetamines Screen NEGATIVE NEGATIVE Urine Methamphetamines Screen NEGATIVE NEGATIVE Urine Benzodiazepines Screen NEGATIVE NEGATIVE Urine Cocaine Screen NEGATIVE NEGATIVE Urine Cannabinoids Screen NEGATIVE NEGATIVE My Orders Orders - KIKO VILLELA DO Ua Culture If Indicated (08/07/21 20:11) Ed Iv/Invasive Line Start (08/07/21 20:13) O2 (08/07/21 20:13) Monitor-Rhythm Ecg Trace Only (08/07/21 20:13) Amylase (08/07/21 20:13) Cbc With Automated Diff (08/07/21 20:13) Comprehensive Metabolic Panel (08/07/21 20:13) Drug Screen Stat (Urine) (08/07/21 20:13) Lipase (08/07/21 20:13) Chest 1 View, Ap/Pa Only (08/07/21 20:13) Covid 19 Inhouse Test (08/07/21 20:13) Ct Abdomen/Pelvis W (08/07/21 21:09) Iohexol Injection (Omnipaque 350 Mg/Ml 1 (08/07/21 21:45) Received Contrast (Hold Metformin- Contr (08/07/21 21:45) Ns (Ivpb) (Sodium Chloride 0.9% Ivpb Bag (08/07/21 21:45) Medications Given in ED Current Medications Medications Dose Ordered Sig/Erik Route Start Time Stop Time Status Last Admin Dose Admin Iohexol 100 ml ONCE ONCE IV 08/07/21 21:45 08/07/21 21:46 DC 08/07/21 21:42 100 ML Sodium Chloride 100 ml ONCE ONCE IV 08/07/21 21:45 08/07/21 21:46 DC 08/07/21 21:42 80 ML Vital Signs/I&O 08/07/21 20:06 Temp 36.6 Pulse 91 Resp 22 B/P (MAP) 173/90 (117) Pulse Ox 95 O2 Delivery Nasal Cannula O2 Flow Rate 2.00 Blood Pressure Mean: 117 Progress Progress Note : Progress Note UNEVENTFUL ER STAY AT DISMISSAL, PT AND NOW STATE THAT PT USES CRUTCHES ALOT, AND LEFT SIDE IS SIDE OF HIS AMPUTATION--POSSIBLY RELATED TO CRUTCH USE? PT HAS A WHEELCHAIR ALSO, AD ADVISED TO USE IT FOR THE NEXT FEW DAYS AND SEE IF THAT HELPS THIS DISCOMFORT Diagnostic Imaging Comments CXR--PER RADIOLOGIST REPORT AT 2106 Heart and mediastinal silhouette are normal in appearance. Lungs appear clear. There is no pneumothorax or pleural fluid. IMPRESSION: No acute process in the chest. CT ABDOMEN/PELVIS--PER RADIOLOGIST REPORT AT 2158 COMPARISON: 01/15/2021. The visualized portions of the lung bases are clear. There were no pleural fluid collections. There is no free intraperitoneal air. The liver shows mild low-density change compatible with fatty infiltration. There is no focal liver lesion. Gallbladder appears contracted but otherwise unremarkable. The spleen is not enlarged and showed no focal lesion. Adrenals and pancreas appear normal. The kidneys bilaterally are unremarkable. There is no right retroperitoneal mass or adenopathy. There is no ascites or abnormal fluid collection. The visualized bowel loops show no sign of obstruction or focal bowel wall thickening. Incidental note is made of asymmetric atrophy of the left gluteal muscles. IMPRESSION: No acute abnormality is seen in the abdomen or pelvis. There is mild fatty infiltration of the liver. Findings appear similar to 01/15/2021. Reviewed: Reviewed by Me Departure Impression Primary Impression: CHRONIC LEFT SIDED ABDOMINAL PAIN Disposition: 01 HOME, SELF-CARE Condition: Stable Departure-Patient Inst. Decision time for Depature: 21:49 Referrals: VINAY GUO MD (PCP/Family) Primary Care Physician Patient Instructions: Abdominal Pain, Adult ED, CHRONIC PAIN Add. Discharge Instructions: CONTINUE YOUR CURRENT MEDICATIONS PRESCRIBED FOLLOW UP WITH DR. GUO THIS WEEK FOR FURTHER CARE All discharge instructions reviewed with patient and/or family. Voiced understan ding. Scripts Hyoscyamine Sulfate (Levsin-Sl) 0.125 Mg Tab.subl 0.25 MG SL Q4H, #10 TAB Prov: KIKO VILLELA DO 08/07/21 KIKO VILLELA DO Aug 07, 2021 20:39
[2021-08-07 20:40] LABS: BASOPHILS # (AUTO) 0.1 10^3/uL (0.0-0.1); BASOPHILS % (AUTO) 1 % (0-10); EOSINOPHILS # (AUTO) 0.4 10^3/uL (0.0-0.3); EOSINOPHILS % (AUTO) 3 % (0-10); HEMATOCRIT 48 % (40-54); HEMOGLOBIN 14.9 g/dL (13.3-17.7); LYMPHOCYTES # (AUTO) 2.6 10^3/uL (1.0-4.0); LYMPHOCYTES % (AUTO) 24 % (12-44); MEAN CORPUSCULAR HEMOGLOBIN 29 pg (25-34); MEAN CORPUSCULAR HGB CONC 31 g/dL (32-36); MEAN CORPUSCULAR VOLUME 93 fL (80-99); MEAN PLATELET VOLUME 8.5 fL (9.0-12.2); MONOCYTES # (AUTO) 0.8 10^3/uL (0.0-1.0); MONOCYTES % (AUTO) 7 % (0-12); NEUTROPHILS # (AUTO) 6.9 10^3/uL (1.8-7.8); NEUTROPHILS % (AUTO) 64 % (42-75); PLATELET COUNT 264 10^3/uL (130-400); WHITE BLOOD COUNT 10.7 10^3/uL (4.3-11.0)
[2021-08-07 20:46] LABS: BILIRUBIN,URINE NEGATIVE (NEGATIVE); CLARITY,URINE CLEAR; COLOR,URINE YELLOW; GLUCOSE, URINE (UA) NEGATIVE (NEGATIVE); KETONES,URINE NEGATIVE (NEGATIVE); LEUKOCYTE ESTERASE ,URINE NEGATIVE (NEGATIVE); NITRITE,URINE NEGATIVE (NEGATIVE); PH,URINE 7.5 (5-9); PROTEIN,URINE NEGATIVE (NEGATIVE)
[2021-08-07 20:50] LABS: ALBUMIN 3.8 GM/DL (3.2-4.5); POTASSIUM 3.8 MMOL/L (3.6-5.0)
[2021-08-07 20:51] LABS: CALCIUM 9.5 MG/DL (8.5-10.1)
[2021-08-07 20:52] LABS: TOTAL PROTEIN 7.3 GM/DL (6.4-8.2)
[2021-08-07 20:54] LABS: BILIRUBIN,TOTAL 0.3 MG/DL (0.1-1.0)
[2021-08-07 20:56] LABS: CREATININE SERUM 0.79 MG/DL (0.60-1.30)
[2021-08-07 21:03] LABS: AMPHETAMINE SCREEN, URINE NEGATIVE (NEGATIVE); BARBITURATE SCREEN URINE NEGATIVE (NEGATIVE); BENZODIAZEPINES SCREEN URINE NEGATIVE (NEGATIVE); CANNABINOID SCREEN, URINE NEGATIVE (NEGATIVE); COCAINE SCREEN URINE NEGATIVE (NEGATIVE); METHADONE STAT NEGATIVE (NEGATIVE); METHAMPHETAMINE SCREEN URINE S NEGATIVE (NEGATIVE); OPIATE SCREEN URINE NEGATIVE (NEGATIVE); OXYCODONE STAT POSITIVE (NEGATIVE); PROPOXYPHENE STAT NEGATIVE (NEGATIVE); TRICYCLIC ANTIDEPRESSANTS SCRE NEGATIVE (NEGATIVE)
--- NOTE | 2021-08-07 21:05 | Diagnostic Imaging Report ---
INDICATION: Hypoxia Frontal chest obtained at 0844 p.m. Heart and mediastinal silhouette are normal in appearance. Lungs appear clear. There is no pneumothorax or pleural fluid. IMPRESSION: No acute process in the chest. Dictated by: Dictated on workstation # [id number]
[2021-08-07 21:06] LABS: BACTERIA,URINE NEGATIVE /HPF
[2021-08-07] MEDS ORDERED: HOLD METFORMIN - RECEIVED CONTRAST 20 ML VIAL IV SCH (21:45)
[2021-08-07] MEDS ORDERED: NS 100 ML (IVPB) BAG IV ONE (21:45)
[2021-08-07] MEDS ORDERED: IOHEXOL 350 MG/ML 100 ML (OMNIPAQUE 350) VIAL IV ONE (21:45)
--- NOTE | 2021-08-07 21:54 | Diagnostic Imaging Report ---
INDICATION: Left-sided abdominal pain. TECHNIQUE: Multiple contiguous axial images were obtained through the abdomen and pelvis after administration of intravenous contrast. Auto Exposure Controls were utilized during the CT exam to meet ALARA standards for radiation dose reduction. All CT scans use one or more of the following dose optimizing techniques: automated exposure control, MA and/or KvP adjustment based on patient size and exam type or iterative reconstruction. COMPARISON: 01/15/2021. The visualized portions of the lung bases are clear. There were no pleural fluid collections. There is no free intraperitoneal air. The liver shows mild low-density change compatible with fatty infiltration. There is no focal liver lesion. Gallbladder appears contracted but otherwise unremarkable. The spleen is not enlarged and showed no focal lesion. Adrenals and pancreas appear normal. The kidneys bilaterally are unremarkable. There is no right retroperitoneal mass or adenopathy. There is no ascites or abnormal fluid collection. The visualized bowel loops show no sign of obstruction or focal bowel wall thickening. Incidental note is made of asymmetric atrophy of the left gluteal muscles. IMPRESSION: No acute abnormality is seen in the abdomen or pelvis. There is mild fatty infiltration of the liver. Findings appear similar to 01/15/2021. Dictated by: Dictated on workstation # [id number]
[2021-08-07] MEDS ORDERED: HYOS0.1283 SL (22:01)
== END 2021-08-07 22:10 | disposition home or self-care (01) ==
LOC: EDUNIT# 20:01 → ER 20:02
DX: G89.29 Other chronic pain (principal); R10.12 Left upper quadrant pain; J44.9 Chronic obstructive pulmonary disease, unspecified; I25.2 Old myocardial infarction; I10 Essential (primary) hypertension; E66.9 Obesity, unspecified; K21.9 Gastro-esophageal reflux disease without esophagitis; M10.9 Gout, unspecified; I25.10 Atherosclerotic heart disease of native coronary artery without angina pectoris; E78.00 Pure hypercholesterolemia, unspecified; Z20.822 Contact with and (suspected) exposure to COVID-19; Z68.34 Body mass index [BMI] 34.0-34.9, adult; F17.210 Nicotine dependence, cigarettes, uncomplicated; Z86.711 Personal history of pulmonary embolism; Z86.718 Personal history of other venous thrombosis and embolism; Z79.82 Long term (current) use of aspirin; Z79.01 Long term (current) use of anticoagulants; Z79.899 Other long term (current) drug therapy
CPT/HCPCS: 36415; 71045; 74177; 80053; 80306; 81000; 82150; 83690; 85025; 87636; 93041

== ENCOUNTER 2022-12-30 18:43 | Emergency (ER) | payer MEDICARE, MEDICAID ==
[~2022-12-30] VITALS: Ht 157.5 cm; Wt 90.7 kg
[~2022-12-30 18:43] MED LIST changes: +CLOP-31 PO; -CLOP75TA69 PO; +HYOS0.1283 SL
[2022-12-30] MEDS ORDERED: ASPIRIN 81 MG CHEW (CHILDREN'S ASA) PO ONE (19:15)
[2022-12-30] MEDS ORDERED: CELE-63 (19:17)
[2022-12-30 19:27] LABS: BASOPHILS # (AUTO) 0.1 10^3/uL (0.0-0.1); BASOPHILS % (AUTO) 0 % (0-10); EOSINOPHILS # (AUTO) 0.3 10^3/uL (0.0-0.3); EOSINOPHILS % (AUTO) 2 % (0-10); HEMATOCRIT 45 % (40-54); HEMOGLOBIN 14.5 g/dL (13.3-17.7); LYMPHOCYTES # (AUTO) 1.6 10^3/uL (1.0-4.0); LYMPHOCYTES % (AUTO) 12 % (12-44); MEAN CORPUSCULAR HEMOGLOBIN 31 pg (25-34); MEAN CORPUSCULAR HGB CONC 33 g/dL (32-36); MEAN CORPUSCULAR VOLUME 94 fL (80-99); MEAN PLATELET VOLUME 8.9 fL (9.0-12.2); MONOCYTES # (AUTO) 1.1 10^3/uL (0.0-1.0); MONOCYTES % (AUTO) 8 % (0-12); NEUTROPHILS # (AUTO) 10.3 10^3/uL (1.8-7.8); NEUTROPHILS % (AUTO) 77 % (42-75); PLATELET COUNT 248 10^3/uL (130-400); WHITE BLOOD COUNT 13.4 10^3/uL (4.3-11.0)
--- NOTE | 2022-12-30 19:27 | ED Chest Pain ---
General Chief Complaint: Chest Pain Stated Complaint: CHEST PAIN History of Present Illness Date Seen by Provider: December 30, 2022 Time Seen by Provider: 19:15 Initial Comments 52 year old male came by private vehicle for chest pain for 30 min. Reports pain improved at time of presentation. History of CAD, left AKA and multiple heart caths/stents. 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 Takes ASA 81 mg and Plavix daily. Hasn't seen Dr. Rhoades in [address] Guo is PCP and saw him 2 weeks ago with no concerns. Denies, N/V/D or diaphoresis. Only complaint at this time, left rib pain and has lidocaine patch at that site for pain from using crutches. Last echocardiogram 01/27/2021 which showed a 45 to 50% ejection fraction. Last cardiac catheterization 06/14/2019. Chronic Tobacco use. Patient is not diabetic. 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: No NTG SL SCUBA DIVE TRAINING INSTRUCTOR: No Associated Symptoms: denies symptoms; No abdominal pain, No back pain, No diaphoresis, No dizziness, No edema, No fatigue, No fever/chills, No headache, No heartburn, No nausea/vomiting, No rash, No shortness of breath, No swelli ng/lump in chest, No syncope, No weakness (JESSICA PALMA) Allergies and Home Medications Allergies Coded Allergies: Penicillins (Unverified Allergy, Mild, 01/27/09) pneumococcal vaccine (Verified Allergy, Unknown, 12/04/19) Patient Home Medication List Home Medication List Reviewed: Yes (JESSICA PALMA) Allopurinol (Allopurinol) 100 Mg Tablet, 100 MG PO DAILY, (Reported) Entered as Reported by: NIRAV SORIANO on 07/12/18 0845 Last Action: Last Taken Edited Aspirin (Aspirin EC) 81 Mg Tablet.dr 81 MG PO HS, (Reported) Entered as Reported by: FELIBERTO CONNOR on 09/26/18 1028 Last Action: Last Taken Edited Atorvastatin Calcium (Atorvastatin Calcium) 40 Mg Tablet, 40 MG PO HS, (Reported) Entered as Reported by: FELIBERTO CONNOR on 07/12/17 0832 Last Action: Last Taken Edited Celecoxib (Celecoxib) 200 Mg Capsule, (Reported) Entered as Reported by: SARAH LILLY on 12/30/22 191 Last Action: New Order Cholecalciferol (Vitamin D3) (Vitamin D3) 25 Mcg Tablet, 25 MCG PO DAILY, ( Reported) Entered as Reported by: TERESA CORREA on 12/04/19 0851 Last Action: Last Taken Edited Clopidogrel Bisulfate (Plavix) 75 Mg Tablet, 75 MG PO DAILY, (Reported) Entered as Reported by: FELIBERTO CONNOR on 09/26/18 1040 Last Action: Last Taken Edited Fluticasone/Salmeterol (Advair Hfa 115-21 Mcg Inhaler) 12 Gm Hfa.aer.ad, 0 PUFF IH RTBID Prescribed by: DORINDA TURCIOS on 12/05/19 1511 Last Action: Last Taken Edited Hyoscyamine Sulfate (Levsin-Sl) 0.125 Mg Tab.subl, 0.25 MG SL Q4H Prescribed by: KIKO VILLELA on 08/07/21 220 Last Action: Last Taken Edited Ipratropium/Albuterol Sulfate (Iprat-Albut 0.5-3(2.5) mg/3 ml) 3 Ml Ampul.neb, 3 ML INH Q2HR PRN for SOA Prescribed by: DORINDA TURCIOS on 12/05/19 1511 Last Action: Last Taken Edited Isosorbide Mononitrate (Isosorbide Mononitrate ER) 30 Mg Tab.er.24h, 30 MG PO DAILY, (Reported) Entered as Reported by: NIRAV SORIANO on 07/12/18 0845 Last Action: Last Taken Edited Metoprolol Tartrate (Metoprolol Tartrate) 50 Mg Tablet, 50 MG PO BID, (Reported) Entered as Reported by: FELIBERTO CONNOR on 06/15/19 1023 Last Action: Last Taken Edited [place] 3 Polyunsat Fatty Acids (Fish Oil 1,000 mg Capsule) 1,000 Mg Cap, 1,000 MG PO BID, (Reported) Entered as Reported by: FELIBERTO CONNOR on 07/12/17 0832 Last Action: Last Taken Edited Pantoprazole Sodium (Protonix) 40 Mg Tablet.dr, 40 MG PO DAILY, (Reported) Entered as Reported by: TERESA CORREA on 12/04/19 0850 Last Action: Last Taken Edited Discontinued Medications Prednisone (Prednisone) 10 Mg Tab.ds.pk, 10 MG PO DAILY Discontinued Reason: No Longer Taking Prescribed by: DORINDA TURCIOS on 12/05/19 1511 Last Action: Discontinued Review of Systems Review of Systems Constitutional: no symptoms reported, see HPI Respiratory: No Symptoms Reported, See HPI Cardiovascular: See HPI, Chest Pain (resolved) Gastrointestinal: No Symptoms Reported, See HPI (JESSICA PALMA) All Other Systems Reviewed Negative Unless Noted: Yes (JESSICA PALMA) Past Zoeyubk-Edcumt-Yvqdoh Hx Immunizations Up To Date PED Vaccines UTD: Yes First/Initial COVID19 Vaccinat: 2020 Second COVID19 Vaccination Esteban: JULY 2021 (JESSICA PALMA) Seasonal Allergies Seasonal Allergies: No (JESSICA PALMA) Past Medical History Surgery/Hospitalization HX: LEFT ABOVE KNEE AMPUTATION, COPD Surgeries: Yes (LEFT AKA) Amputation, Cardiac, Coronary Stent, Orthopedic Respiratory: Yes (O2 DEPENDENT) Pulmonary Embolism, COPD Currently Using CPAP: No Currently Using BIPAP: No Cardiac: Yes (VA X 2; STENTS X 4; -NSTEMI 07/11/17 WITH 1 STENT PLACED) Coronary Artery Disease, Deep Vein Thrombosis, Heart Attack, High Cholesterol, Hypertension Neurological: No Reproductive Disorders: No Genitourinary: No Gastrointestinal: Yes Gastroesophageal Reflux Musculoskeletal: Yes (OXYCODONE, GABAPENTIN + IBUPROFEN DAILY;CHRONIC BACK/L LEG PHANTOM PAIN) Amputee, Chronic Back Pain, Gout Endocrine: No (OBESITY) HEENT: No Cancer: No Psychosocial: No Integumentary: No Blood Disorders: Yes (PROTEIN S DEFICIENCY--DVT'S AND P.E.'S AND VA X 2) (JESSICA PALMA) Family Medical History Reviewed Nursing Family Hx (JESSICA PALMA) Arthritis G8 BROTHER Blood clots 19 MOTHER ( of blood clot) Cardiac disorder 19 FATHER Diabetes mellitus G8 BROTHER FH: cancer paternal grandmother FHx: inflammatory bowel disease G8 BROTHER No Family History of: FH: sudden cardiac (SCD) Heart Disease, Vascular Disease SOCIAL HISTORY: -SMOKES 1 PPD -ETOH-DENIES USE -DRUGS-DENIES USE PAST SURGICAL HISTORY: -LEFT ABOVE THE KNEE AMPUTATION -SURGERY TO LEFT MID ABDOMEN FOR "NERVE PAIN" FROM LEFT LEG AMPUTATION -CARDIAC CATHS WITH STENTS X 4 LAST CARDIAC CATH DONE HERE 06/15/[address] RHOADES: CONCLUSION: 1. Patent stent in the obtuse marginal branch and multiple stents in the right coronary artery with small vessel disease nonobstructive disease 2. Prominent left ventricle with mild diffuse left ventricular hypokinesia estimated ejection fraction 45 percent, normal left ventricular end-diastolic pressure 3. Normal aortic arch and great vessels of the neck DISCUSSION AND RECOMMENDATION: Chest pain is probably due to small vessel disease, mild troponin leak, not considered myocardial infarction. Patent arteries. Chronic compensated left ventricular systolic dysfunction. Medical therapy is recommended, educated on smoking cessation (JESSICA PALMA) Physical Exam Vital Signs Vital Signs - First Documented 12/30/22 19:07 Temp 37.8 Pulse 114 Resp 20 B/P (MAP) 107/60 (76) Pulse Ox 93 O2 Delivery Nasal Cannula O2 Flow Rate 3.00 (MENDOZA CRAWFORD MD) Vital Signs Capillary Refill : (JESSICA PALMA) Height, Weight, BMI Height: 5'4.00" Weight: 190lbs. 1.6oz. 86.566526fl; 34.00 BMI Method:Stated General Appearance: No Apparent Distress, WD/WN HEENT: TMs Normal, Normal ENT Inspection, Pharynx Normal Neck: Full Range of Motion, Normal Inspection, Non Tender, Supple Respiratory: Chest Non Tender, Lungs Clear, Normal Breath Sounds Cardiovascular: No Edema, No Murmur, Normal Peripheral Pulses (rt LE), Tachycardia Gastrointestinal: Normal Bowel Sounds, Non Tender, Soft Extremity: Normal Capillary Refill, Normal Inspection, Normal Range of Motion, Non Tender Neurologic/Psychiatric: Alert, Oriented x3, No Motor/Sensory Deficits, Normal Mood/Affect Skin: Normal Color, Warm/Dry (JESSICA PALMA) Progress/Results/Core Measures Results/Orders Lab Results Laboratory Tests Test 12/30/22 19:17 12/30/22 20:34 12/30/22 21:39 Range/Units White Blood Count 13.4 H 4.3-11.0 10^3/uL Red Blood Count 4.73 4.30-5.52 10^6/uL Hemoglobin 14.5 13.3-17.7 g/dL Hematocrit 45 40-54 % Mean Corpuscular Volume 94 80-99 fL Mean Corpuscular Hemoglobin 31 25-34 pg Mean Corpuscular Hemoglobin Concent 33 32-36 g/dL Red Cell Distribution Width 15.0 H 10.0-14.5 % Platelet Count 248 130-400 10^3/uL Mean Platelet Volume 8.9 L 9.0-12.2 fL Immature Granulocyte % (Auto) 0 % Neutrophils (%) (Auto) 77 H 42-75 % Lymphocytes (%) (Auto) 12 12-44 % Monocytes (%) (Auto) 8 0-12 % Eosinophils (%) (Auto) 2 0-10 % Basophils (%) (Auto) 0 0-10 % Neutrophils # (Auto) 10.3 H 1.8-7.8 10^3/uL Lymphocytes # (Auto) 1.6 1.0-4.0 10^3/uL Monocytes # (Auto) 1.1 H 0.0-1.0 10^3/uL Eosinophils # (Auto) 0.3 0.0-0.3 10^3/uL Basophils # (Auto) 0.1 0.0-0.1 10^3/uL Immature Granulocyte # (Auto) 0.1 0.0-0.1 10^3/uL Prothrombin Time 13.4 12.2-14.7 SEC INR Comment 1.0 0.8-1.4 Activated Partial Thromboplast Time 34 24-35 SEC Sodium Level 137 135-145 MMOL/L Potassium Level 3.8 3.6-5.0 MMOL/L Chloride Level 96 L 98-107 MMOL/L Carbon Dioxide Level 30 21-32 MMOL/L Anion Gap 11 5-14 MMOL/L Blood Urea Nitrogen 5 L 7-18 MG/DL Creatinine 0.78 0.60-1.30 MG/DL Estimat Glomerular Filtration Rate 109 BUN/Creatinine Ratio 6 Glucose Level 110 H 70-105 MG/DL Calcium Level 9.0 8.5-10.1 MG/DL Corrected Calcium 9.4 8.5-10.1 MG/DL Magnesium Level 1.9 1.6-2.4 MG/DL Total Bilirubin 0.9 0.1-1.0 MG/DL Aspartate Amino Transf (AST/SGOT) 10 5-34 U/L Alanine Aminotransferase (ALT/SGPT) < 6 0-55 U/L Alkaline Phosphatase 98 40-136 U/L Myoglobin 34.2 10.0-92.0 NG/ML Troponin I < 0.028 < 0.028 <0.028 NG/ML Total Protein 7.3 6.4-8.2 GM/DL Albumin 3.5 3.2-4.5 GM/DL Urine Color YELLOW Urine Clarity CLEAR Urine pH 6.5 5-9 Urine Specific [place] <=1.005 1.016-1.022 Urine Protein NEGATIVE NEGATIVE Urine Glucose (UA) NEGATIVE NEGATIVE Urine Ketones NEGATIVE NEGATIVE Urine Nitrite NEGATIVE NEGATIVE Urine Bilirubin NEGATIVE NEGATIVE Urine Urobilinogen 1.0 < = 1.0 MG/DL Urine Leukocyte Esterase NEGATIVE NEGATIVE Urine RBC (Auto) NEGATIVE NEGATIVE Urine RBC NONE /HPF Urine WBC NONE /HPF Urine Crystals PRESENT H /LPF Urine Amorphous Sediment FEW ROSHAN URATES H /LPF Urine Bacteria NEGATIVE /HPF Urine Casts NONE /LPF Urine Mucus NEGATIVE /LPF Urine Culture Indicated NO (MENDOZA CRAWFORD MD) Medications Given in ED Current Medications Medications Dose Ordered Sig/Erik Route Start Time Stop Time Status Last Admin Dose Admin Aspirin 324 mg ONCE ONCE PO 12/30/22 19:15 12/30/22 19:16 DC 12/30/22 19:35 324 MG (MENDOZA CRAWFORD MD) Vital Signs/I&O 12/30/22 12/30/22 12/30/22 19:07 19:07 22:13 Temp 37.8 37.4 Pulse 114 100 Resp 20 14 B/P (MAP) 107/60 (76) 104/52 Pulse Ox 93 93 O2 Delivery Nasal Cannula Nasal Cannula Room Air O2 Flow Rate 3.00 3.00 (MENDOZA CRAWFORD MD) Progress Progress Note : Time: 19:15 Progress Note Patient assessed, will give aspirin 324 mg orally, EKG, labs and chest x-ray. 2009 patient continues to deny chest pain. Labs and EKG normal no acute findings on chest x-ray. We will continue to monitor. Requiring oxygen at 2 to 3 L per nasal cannula to maintain greater than 90%. 2100 no chest pain. Spoke to Dr. Alcocer, recommended repeat troponin at 2200. If negative, discharge to home. 2200 second troponin negative. Patient continues to have no chest pain. Discharge instructions and return precautions reviewed with the patient and his . All questions answered. (JESSICA PALMA) Initial ECG Impression Date: December 30, 2022 Initial ECG Impression Time: 19:15 Initial ECG Rate: 112 Initial ECG Rhythm: Normal Sinus, S.Tach Initial ECG Intervals: Normal Initial ECG Intervals MO 126, QRS D 137, QT 314, QTc 380. [place] P73, RR -25, T52 Initial ECG Impression: Nonspecific Changes Initial ECG Comparisson: Unchanged (JESSICA PALMA) Diagnostic Imaging Diagonstic Imaging: Xray Plain Films/CT/US/NM/MRI: chest Comments NAME: HOANG ALVARADO [facility] REC#: [id number] PT STATUS: REG ER : 1970 PHYSICIAN: JESSICA PALMA ADMIT DATE: 12/30/22/ER Signed Date of Exam:12/30/22 CHEST 1 VIEW, AP/PA ONLY INDICATION: Chest pain. COMPARISON: 08/07/2021. FINDINGS: The lungs appear clear without focal airspace opacities or consolidation. There are no findings of an effusion. There is no evidence of a pneumothorax. Heart size and mediastinal contours appear appropriate. Pulmonary vascularity appears within normal limits. There is no acute or suspicious osseous abnormality demonstrated. IMPRESSION: No radiographic evidence of an acute cardiopulmonary process. Dictated by: Dictated on workstation # [id number] Dict: 12/30/221942 Trans: 12/30/221942 [facility] [id number] Interpreted by: TERELL GUAJARDO MD Electronically signed by: TERELL GUAJARDO MD 12/30/221942 Reviewed: Reviewed by Me (JESSICA PALMA) Departure Impression Primary Impression: Chest pain Qualified Codes: R07.9 - Chest pain, unspecified Additional Impression: CAD (coronary artery disease) Qualified Codes: I25.118 - Atherosclerotic heart disease of [place] coronary artery with other forms of angina pectoris Disposition: HOME, SELF-CARE Condition: Stable Departure-Patient Inst. Decision time for Depature: 22:00 (JESSICA PALMA) Referrals: VINAY GUO MD (PCP/Family) Primary Care Physician Patient Instructions: Chest Pain (DC) Add. Discharge Instructions: Continue all home medications as prescribed. Call for follow-up appointment with Dr. Rhoades. Return to the emergency department for chest pain or other urgent healthcare needs. All discharge instructions reviewed with patient and/or family. Voiced understanding. ATTENDING PHYSICIAN NOTE: I was physically present as attending physician in the emergency department during the care of this patient, but I was not directly involved in the decision making or delivery of care for this patient. (MENDOZA CRAWFORD MD) Copy Copies To 1: VINAY GUO MD; JEFFERY RHOADES MD, [employer] SUPERVISOR December 30, 2022 19:26 MENDOZA CRAWFORD MD December 30, 2022 22:38
[2022-12-30 19:41] LABS: PROTHROMBIN TIME PATIENT 13.4 SEC (12.2-14.7)
--- NOTE | 2022-12-30 19:45 | Diagnostic Imaging Report ---
INDICATION: Chest pain. COMPARISON: 08/07/2021. FINDINGS: The lungs appear clear without focal airspace opacities or consolidation. There are no findings of an effusion. There is no evidence of a pneumothorax. Heart size and mediastinal contours appear appropriate. Pulmonary vascularity appears within normal limits. There is no acute or suspicious osseous abnormality demonstrated. IMPRESSION: No radiographic evidence of an acute cardiopulmonary process. Dictated by: Dictated on workstation # [id number]
[2022-12-30 20:03] LABS: ALANINE AMINOTRANSFERASE < 6 U/L (0-55); ALBUMIN 3.5 GM/DL (3.2-4.5); ALKALINE PHOSPHATASE 98 U/L (40-136); BILIRUBIN,TOTAL 0.9 MG/DL (0.1-1.0); BUN/CREATININE RATIO 6; CARBON DIOXIDE 30 MMOL/L (21-32); CHLORIDE 96 MMOL/L (98-107); CREATININE SERUM 0.78 MG/DL (0.60-1.30); GFR ESTIMATED 109; GLUCOSE 110 MG/DL (70-105); MAGNESIUM 1.9 MG/DL (1.6-2.4); POTASSIUM 3.8 MMOL/L (3.6-5.0); SODIUM 137 MMOL/L (135-145); TOTAL PROTEIN 7.3 GM/DL (6.4-8.2)
[2022-12-30 20:44] LABS: BILIRUBIN,URINE NEGATIVE (NEGATIVE); CLARITY,URINE CLEAR; COLOR,URINE YELLOW; GLUCOSE, URINE (UA) NEGATIVE (NEGATIVE); KETONES,URINE NEGATIVE (NEGATIVE); LEUKOCYTE ESTERASE ,URINE NEGATIVE (NEGATIVE); NITRITE,URINE NEGATIVE (NEGATIVE); PH,URINE 6.5 (5-9); PROTEIN,URINE NEGATIVE (NEGATIVE)
[2022-12-30 21:01] LABS: AMORPHOUS SEDIMENT,UR FEW AMOR URATES /LPF; BACTERIA,URINE NEGATIVE /HPF
[2022-12-30 22:13] VITALS: BP 104/52
== END 2022-12-30 22:16 | disposition home or self-care (01) ==
LOC: EDUNIT# 18:43 → ER 18:47
DX: I25.10 Atherosclerotic heart disease of native coronary artery without angina pectoris (principal); I25.2 Old myocardial infarction; J44.9 Chronic obstructive pulmonary disease, unspecified; F17.210 Nicotine dependence, cigarettes, uncomplicated; Z95.5 Presence of coronary angioplasty implant and graft; Z79.82 Long term (current) use of aspirin; Z79.02 Long term (current) use of antithrombotics/antiplatelets; Z99.81 Dependence on supplemental oxygen
CPT/HCPCS: 36415; 71045; 80053; 81000; 83735; 83874; 84484; 85025; 85610; 85730; 93005; 93041

== ENCOUNTER 2023-02-24 14:08 | Inpatient (IN) | payer MEDICARE, MEDICAID ==
[~2023-02-24] VITALS: Ht 162.6 cm; Wt 89.5 kg
[~2023-02-24 14:08] MED LIST changes: +CELE-63 PO
[2023-02-24] MEDS ORDERED: NS IV 1000 ML 1,000 ML IV STA (14:23)
[2023-02-24] MEDS ORDERED: ACETAMINOPHEN 500 MG TAB (TYLENOL) PO PRN (14:30)
[2023-02-24] MEDS ORDERED: RT-ALBUTEROL/IPRATROPIUM 3 ML (DUONEB) VIAL INH ONE (14:30)
[2023-02-24 14:33] LABS: BASOPHILS % (AUTO) 0 % (0-10); EOSINOPHILS # (AUTO) 0.1 10^3/uL (0.0-0.3); EOSINOPHILS % (AUTO) 1 % (0-10); HEMATOCRIT 42 % (40-54); HEMOGLOBIN 13.8 g/dL (13.3-17.7); LYMPHOCYTES % (AUTO) 11 % (12-44); MEAN CORPUSCULAR HEMOGLOBIN 31 pg (25-34); MEAN CORPUSCULAR HGB CONC 33 g/dL (32-36); MEAN CORPUSCULAR VOLUME 94 fL (80-99); MEAN PLATELET VOLUME 9.6 fL (9.0-12.2); MONOCYTES # (AUTO) 1.2 10^3/uL (0.0-1.0); MONOCYTES % (AUTO) 7 % (0-12); NEUTROPHILS # (AUTO) 14.6 10^3/uL (1.8-7.8); NEUTROPHILS % (AUTO) 81 % (42-75); PLATELET COUNT 248 10^3/uL (130-400); WHITE BLOOD COUNT 18.1 10^3/uL (4.3-11.0)
[2023-02-24 14:43] LABS: PROTHROMBIN TIME PATIENT 13.4 SEC (12.2-14.7)
[2023-02-24 14:44] LABS: ALBUMIN 3.3 GM/DL (3.2-4.5)
[2023-02-24 14:45] LABS: CHLORIDE 93 MMOL/L (98-107); POTASSIUM 3.2 MMOL/L (3.6-5.0); SODIUM 135 MMOL/L (135-145)
[2023-02-24 14:46] LABS: CALCIUM 9.5 MG/DL (8.5-10.1)
[2023-02-24 14:47] LABS: GLUCOSE 93 MG/DL (70-105); TOTAL PROTEIN 7.4 GM/DL (6.4-8.2)
[2023-02-24 14:48] LABS: CARBON DIOXIDE 28 MMOL/L (21-32)
[2023-02-24 14:49] LABS: BILIRUBIN,TOTAL 0.7 MG/DL (0.1-1.0)
[2023-02-24 14:50] LABS: ALKALINE PHOSPHATASE 83 U/L (40-136)
[2023-02-24 14:51] LABS: CREATININE SERUM 0.95 MG/DL (0.60-1.30); GFR ESTIMATED 98
[2023-02-24 14:52] LABS: BUN/CREATININE RATIO 11
[2023-02-24 14:54] LABS: ALANINE AMINOTRANSFERASE < 6 U/L (0-55)
--- NOTE | 2023-02-24 14:54 | ED General ---
General Chief Complaint: Respiratory Problems Stated Complaint: FEVER/COUGHING BLOOD Nursing Triage Note: PT STATES DX WITH RT PNEUMONIA A COUPLE DAYS AGO, ON DOXY ABX, COUGHING UP BLOOD Source of Information: Patient Exam Limitations: No Limitations History of Present Illness Date Seen by Provider: Feb 24, 2023 Time Seen by Provider: 14:18 Initial Comments Here with report of recent history of pneumonia diagnosed a few days ago at the clinic. He was started on doxycycline. He states that since in the right lower lobe. Comes in today with fever, shortness of breath, cough and coughing up blood. Patient is on blood thinners. Does have long history of COPD. He has been vaccinated for COVID and influenza. Did have left lower extremity [id number] amputation secondary to blood clot disorder/vascular disease and infection. Patient does have inhalers at home and he has been taking the doxycycline as prescribed and has been getting worse. Denies nausea or vomiting. Denies diarrhea. Urinating okay. Denies diabetes history. Does smoke 1 pack/day but has only been able to smoke 1/2 pack/day for the last few days due to the illness. Timing/Duration: 3-4 Days, Getting Worse Severity: Moderate Associated Systoms: No Chest Pain; Cough, Fever/Chills; No Nausea/Vomiting; Shortness of Air; No Weakness Allergies and Home Medications Allergies Coded Allergies: Penicillins (Unverified Allergy, Mild, 01/27/09) pneumococcal vaccine (Verified Allergy, Unknown, 12/04/19) Patient Home Medication List Home Medication List Reviewed: Yes Allopurinol (Allopurinol) 100 Mg Tablet, 100 MG PO DAILY, (Reported) Entered as Reported by: NIRAV SORIANO on 07/12/18 0845 Aspirin (Aspirin EC) 81 Mg Tablet.dr, 81 MG PO HS, (Reported) Entered as Reported by: FELIBERTO CONNOR on 09/26/18 1028 Atorvastatin Calcium (Atorvastatin Calcium) 40 Mg Tablet, 40 MG PO HS, (Reported) Entered as Reported by: FELIBERTO CONNOR on 07/12/17 0832 Celecoxib (Celecoxib) 200 Mg Capsule, (Reported) Entered as Reported by: SARAH LILLY on 12/30/22 1917 Cholecalciferol (Vitamin D3) (Vitamin D3) 25 Mcg Tablet, 25 MCG PO DAILY, (Reported) Entered as Reported by: TERESA CORREA on 12/04/19 0851 Clopidogrel Bisulfate (Plavix) 75 Mg Tablet, 75 MG PO DAILY, (Reported) Entered as Reported by: FELIBERTO CONNOR on 09/26/18 1040 Fluticasone/Salmeterol (Advair Hfa 115-21 Mcg Inhaler) 12 Gm Hfa.aer.ad, 0 PUFF IH RTBID Prescribed by: DORINDA TURCIOS on 12/05/19 1511 Hyoscyamine Sulfate (Levsin-Sl) 0.125 Mg Tab.subl, 0.25 MG SL Q4H Prescribed by: KIKO VILLELA on 08/07/21 2201 Ipratropium/Albuterol Sulfate (Iprat-Albut 0.5-3(2.5) mg/3 ml) 3 Ml Ampul.neb, 3 ML INH Q2HR PRN for SOA Prescribed by: DORINDA TURCIOS on 12/05/19 1511 Isosorbide Mononitrate (Isosorbide Mononitrate ER) 30 Mg Tab.er.24h, 30 MG PO DAILY, (Reported) Entered as Reported by: NIRAV SORIANO on 07/12/18 0845 Metoprolol Tartrate (Metoprolol Tartrate) 50 Mg Tablet, 50 MG PO BID, (Reported) Entered as Reported by: FELIBERTO CONNOR on 06/15/19 1023 Iva 3 Polyunsat Fatty Acids (Fish Oil 1,000 mg Capsule) 1,000 Mg Cap, 1,000 MG PO BID, (Reported) Entered as Reported by: FELIBERTO CONNOR on 07/12/17 0832 Pantoprazole Sodium (Protonix) 40 Mg Tablet.dr, 40 MG PO DAILY, (Reported) Entered as Reported by: TERESA CORREA on 12/04/19 0850 Review of Systems Review of Systems Constitutional: see HPI; No chills, No fever EENTM: no symptoms reported Respiratory: cough, short of breath, wheezing Cardiovascular: No chest pain, No palpitations Gastrointestinal: No nausea, No vomiting Genitourinary: no symptoms reported Musculoskeletal: no symptoms reported Skin: no symptoms reported Psychiatric/Neurological: Denies Anxiety, Denies Headache Past Pkcwlpv-Fcxsda-Gqgzvn Hx Patient Social History Tobacco Use?: Yes Tobacco type used: Cigarettes Smoking Status: Current Everyday Smoker Substance use?: No Alcohol Use?: No Immunizations Up To Date PED Vaccines UTD: Yes First/Initial COVID19 Vaccinat: X3 Second COVID19 Vaccination Esteban: X3 Third COVID19 Vaccination Date: X3 Seasonal Allergies Seasonal Allergies: No Past Medical History Surgery/Hospitalization HX: LEFT ABOVE KNEE AMPUTATION, HEART CATH X5 WITH STENTS HTN, HLD, GOUT, COPD, CHF Surgeries: Yes (LEFT AKA) Amputation, Cardiac, Coronary Stent, Orthopedic Respiratory: Yes (O2 DEPENDENT) Pulmonary Embolism, COPD Currently Using CPAP: No Currently Using BIPAP: No Cardiac: Yes (PA X 2; STENTS X 4; -NSTEMI 07/11/17 WITH 1 STENT PLACED) Coronary Artery Disease, Deep Vein Thrombosis, Heart Attack, High Cholesterol, Hypertension Neurological: No Reproductive Disorders: No Genitourinary: No Gastrointestinal: Yes Gastroesophageal Reflux Musculoskeletal: Yes (OXYCODONE, GABAPENTIN + IBUPROFEN DAILY;CHRONIC BACK/L LEG PHANTOM PAIN) Amputee, Chronic Back Pain, Gout Endocrine: No (OBESITY) HEENT: No Cancer: No Psychosocial: No Integumentary: No Blood Disorders: Yes (PROTEIN S DEFICIENCY--DVT'S AND P.E.'S AND PA X 2) Family Medical History Reviewed Nursing Family Hx Arthritis G8 BROTHER Blood clots 19 MOTHER ( of blood clot) Cardiac disorder 19 FATHER Diabetes mellitus G8 BROTHER FH: cancer paternal grandmother FHx: inflammatory bowel disease G8 BROTHER No Family History of: FH: sudden cardiac (SCD) Heart Disease, Vascular Disease SOCIAL HISTORY: -SMOKES 1 PPD -ETOH-DENIES USE -DRUGS-DENIES USE PAST SURGICAL HISTORY: -LEFT ABOVE THE KNEE AMPUTATION -SURGERY TO LEFT MID ABDOMEN FOR "NERVE PAIN" FROM LEFT LEG AMPUTATION -CARDIAC CATHS WITH STENTS X 4 LAST CARDIAC CATH DONE HERE 06/15/[address] DE SOUZA: CONCLUSION: 1. Patent stent in the obtuse marginal branch and multiple stents in the right coronary artery with small vessel disease nonobstructive disease 2. Prominent left ventricle with mild diffuse left ventricular hypokinesia estimated ejection fraction 45 percent, normal left ventricular end-diastolic pressure 3. Normal aortic arch and great vessels of the neck DISCUSSION AND RECOMMENDATION: Chest pain is probably due to small vessel disease, mild troponin leak, not considered myocardial infarction. Patent arteries. Chronic compensated left ventricular systolic dysfunction. Medical therapy is recommended, educated on smoking cessation Physical Exam-Suspected Sepsis Physical Exam Vital Signs Vital Signs - First Documented 02/24/23 14:15 Temp 38.4 B/P (MAP) 123/60 (81) Capillary Refill : Blood Pressure Mean: 81 Height, Weight, BMI Height: 5'4.00" Weight: 190lbs. 1.6oz. 86.019291gd; 33.00 BMI Method:Stated General Appearance: No Apparent Distress, WD/WN HEENT: PERRL/EOMI, Pharynx Normal Neck: Non Tender, Supple Respiratory: No Respiratory Distress, Expiration, Wheezing Cardiovascular: No Murmur, Tachycardia Gastrointestinal: Non Tender, Soft Back: Normal Inspection, No CVA Tenderness, No Vertebral Tenderness Extremity: Normal Range of Motion, Other (Left AKA) Neurologic/Psychiatric: Alert, Oriented x3 Skin: normal color, warm/dry Focused Exam Lactate Level 02/24/23 14:15: Lactic Acid Level 2.21*H Lactic Acid Level Laboratory Tests Test 02/24/23 14:15 Lactic Acid Level 2.21 MMOL/L (0.50-2.00) *H Progress/Results/Core Measures Suspected Sepsis SIRS Temperature: Pulse: Respiratory Rate: Laboratory Tests 02/24/23 14:15: White Blood Count 18.1H Blood Pressure 123 /60 Mean: 81 02/24/23 14:15: Lactic Acid Level 2.21*H Laboratory Tests 02/24/23 14:15: Creatinine 0.95, INR Comment 1.0, Platelet Count 248, Total Bilirubin 0.7 Results/Orders Lab Results Laboratory Tests Test 02/24/23 14:15 Range/Units White Blood Count 18.1 H 4.3-11.0 10^3/uL Red Blood Count 4.49 4.30-5.52 10^6/uL Hemoglobin 13.8 13.3-17.7 g/dL Hematocrit 42 40-54 % Mean Corpuscular Volume 94 80-99 fL Mean Corpuscular Hemoglobin 31 25-34 pg Mean Corpuscular Hemoglobin Concent 33 32-36 g/dL Red Cell Distribution Width 16.9 H 10.0-14.5 % Platelet Count 248 130-400 10^3/uL Mean Platelet Volume 9.6 9.0-12.2 fL Immature Granulocyte % (Auto) 1 % Neutrophils (%) (Auto) 81 H 42-75 % Lymphocytes (%) (Auto) 11 L 12-44 % Monocytes (%) (Auto) 7 0-12 % Eosinophils (%) (Auto) 1 0-10 % Basophils (%) (Auto) 0 0-10 % Neutrophils # (Auto) 14.6 H 1.8-7.8 10^3/uL Lymphocytes # (Auto) 2.0 1.0-4.0 10^3/uL Monocytes # (Auto) 1.2 H 0.0-1.0 10^3/uL Eosinophils # (Auto) 0.1 0.0-0.3 10^3/uL Basophils # (Auto) 0.0 0.0-0.1 10^3/uL Immature Granulocyte # (Auto) 0.2 H 0.0-0.1 10^3/uL Neutrophils % (Manual) 84 % Lymphocytes % (Manual) 11 % Monocytes % (Manual) 3 % Reactive Lymphocytes 2 % Blood Morphology Comment NORMAL Prothrombin Time 13.4 12.2-14.7 SEC INR Comment 1.0 0.8-1.4 Activated Partial Thromboplast Time 42 H 24-35 SEC Sodium Level 135 135-145 MMOL/L Potassium Level 3.2 L 3.6-5.0 MMOL/L Chloride Level 93 L 98-107 MMOL/L Carbon Dioxide Level 28 21-32 MMOL/L Anion Gap 14 5-14 MMOL/L Blood Urea Nitrogen 10 7-18 MG/DL Creatinine 0.95 0.60-1.30 MG/DL Estimat Glomerular Filtration Rate 98 BUN/Creatinine Ratio 11 Glucose Level 93 70-105 MG/DL Lactic Acid Level 2.21 *H 0.50-2.00 MMOL/L Calcium Level 9.5 8.5-10.1 MG/DL Corrected Calcium 10.1 8.5-10.1 MG/DL Total Bilirubin 0.7 0.1-1.0 MG/DL Aspartate Amino Transf (AST/SGOT) 15 5-34 U/L Alanine Aminotransferase (ALT/SGPT) < 6 0-55 U/L Alkaline Phosphatase 83 40-136 U/L Total Protein 7.4 6.4-8.2 GM/DL Albumin 3.3 3.2-4.5 GM/DL My Orders Orders - NILO EASON MD Cbc With Automated Diff (02/24/23 14:23) Comprehensive Metabolic Panel (02/24/23 14:23) Blood Culture (02/24/23 14:23) Sputum Culture (02/24/23 14:23) Protime With Inr (02/24/23 14:23) Partial Thromboplastin Time (02/24/23 14:23) Chest 1 View, Ap/Pa Only (02/24/23 14:23) Acetaminophen Tablet (Tylenol Tablet) (02/24/23 14:30) Ed Iv/Invasive Line Start (02/24/23 14:23) Vital Signs Adult Sepsis Patie Q15M (02/24/23 14:23) O2 (02/24/23 14:23) Remove Rings In Anticipation O (02/24/23 14:23) Lactic Acid Analyzer (02/24/23 14:23) Albuterol/Ipra Inhalation Soln (Duoneb I (02/24/23 14:30) Ns Iv 1000 Ml (Sodium Chloride 0.9%) (02/24/23 14:23) Svn Small Volume Nebulizer (02/24/23 14:23) Manual Differential (02/24/23 14:15) Cefepime Injection (Maxipime Injection) (02/24/23 15:45) Code/Resuscitation (02/24/23 15:46) Ed Admission (Communication) (02/24/23 15:46) Medications Given in ED Current Medications Medications Dose Ordered Sig/Erik Route Start Time Stop Time Status Last Admin Dose Admin Acetaminophen 1,000 mg ONCE PRN PO 02/24/23 14:30 02/24/23 14:30 DC 02/24/23 14:29 1,000 MG Albuterol/ Ipratropium 3 ml ONCE ONCE INH 02/24/23 14:30 02/24/23 14:31 DC 02/24/23 14:29 3 ML Cefepime HCl 1000 mg/Sodium Chloride 50 ml @ 100 mls/hr ONCE ONCE IV 02/24/23 15:45 02/24/23 16:14 02/24/23 15:53 100 MLS/HR Vital Signs/I&O 02/24/23 02/24/23 14:15 14:29 Temp 38.4 38.4 B/P (MAP) 123/60 (81) Capillary Refill : Blood Pressure Mean: 81 Progress Note : Progress Note Seen and evaluated. Patient has fever on arrival and is tachycardic with cough and history of pneumonia. We will go ahead and initiate sepsis protocol inc luding IV, labs including CBC, CMP, blood cultures and lactic acid. We will get chest x-ray. No indication for UA as he has had not having urinary tract symptoms. Monitor patient. Differential diagnosis includes pneumonia, sepsis, severe sepsis, electrolyte abnormality 1500: Patient has obvious right lower lobe infiltrate on chest x-ray on my interpretation. Sputum culture has been ordered and pending. Patient has failed outpatient therapy and will require admission. 1542: Labs reviewed and CBC does show a white count of 18,000 with left shift. CMP grossly normal with slightly elevated blood sugar and lactic acid noted to be elevated at 2.21. I did discuss all of this with the on-call hospitalist, Dr. Acevedo for [facility], who accepts patient for admission, observation status to medical surgical unit. Cefepime 1 g IV initiated. No history of significant MRSA infection. All findings concerns discussed with patient and family who agree with plan. He is doing a little better after DuoNeb therapy ordered earlier. Diagnostic Imaging Diagonstic Imaging: Xray Plain Films/CT/US/NM/MRI: chest Comments [facility], [facility]. [place], [place] NAME: HOANG ALVARADO [facility] REC#: [id number] PT STATUS: REG ER : 1970 PHYSICIAN: NILO EASON MD ADMIT DATE: 02/24/23/ER Draft Date of Exam:02/24/23 CHEST 1 VIEW, AP/PA ONLY EXAM: Chest 1 view, AP/PA only. INDICATION: Cough. Fever. COMPARISON: Chest radiograph 12/30/2022. FINDINGS: New airspace opacity in the right lung base suspicious for pneumonitis. No pleural effusion or pneumothorax. Normal heart size and central pulmonary vascularity. No acute osseous finding. IMPRESSION: New airspace opacity in the right lung base suspicious for pneumonitis. Recommend follow-up to resolution. Dictated on workstation # [id number] Dict: 02/24/23 1456 Trans: 02/24/23 1459 [facility] [id number] Interpreted by: MARCIE SINGH MD Electronically signed by: Reviewed: Reviewed by Me Departure Communication (Admissions) Time/Spoke to Admitting Phy: 15:42 Impression Primary Impression: Right lower lobe pneumonia Qualified Codes: J18.9 - Pneumonia, unspecified organism Disposition: ADMITTED INPATIENT Condition: Stable Admissions Decision to Admit Reason: Admit from ER (General) Decision to Admit/Date: Feb 24, 2023 Time/Decision to Admit Time: 15:42 Departure-Patient Inst. Referrals: [facility] [place] (PCP/Family) Primary Care Physician NILO EASON MD Feb 24, 2023 14:54
--- NOTE | 2023-02-24 14:59 | Diagnostic Imaging Report ---
EXAM: Chest 1 view, AP/PA only. INDICATION: Cough. Fever. COMPARISON: Chest radiograph 12/30/2022. FINDINGS: New airspace opacity in the right lung base suspicious for pneumonitis. No pleural effusion or pneumothorax. Normal heart size and central pulmonary vascularity. No acute osseous finding. IMPRESSION: New airspace opacity in the right lung base suspicious for pneumonitis. Recommend follow-up to resolution. Dictated by: Dictated on workstation # [id number]
[2023-02-24 15:31] LABS: LYMPHOCYTES % (MANUAL) 11 %; MONOCYTES % (MANUAL) 3 %; NEUTROPHILS % (MANUAL) 84 %; RBC MORPH NORMAL; REACTIVE LYMPHOCYTES 2 %
[2023-02-24] MEDS ORDERED: CEFEPIME INJECTION 1,000 MG in NS (IVPB) 50 ML IV ONE (15:45)
[2023-02-24] MEDS ORDERED: LISI10TA25 PO (16:41)
[2023-02-24] MEDS ORDERED: GBPN600T PO (16:41)
[2023-02-24] MEDS ORDERED: BUDE10.7 IDT (16:41)
[2023-02-24] MEDS ORDERED: OXYC-556 PO (16:41)
[2023-02-24 16:45] VITALS: BP 111/71
[2023-02-24] MEDS ORDERED: LIDO700A45 TP (16:59)
[2023-02-24] MEDS ORDERED: diphenhydrAMINE 25 MG TAB (BENADRYL) PO PRN (17:00)
[2023-02-24] MEDS ORDERED: ACETAMINOPHEN 325 MG TABLET PO PRN (17:00)
[2023-02-24] MEDS ORDERED: HYDROmorphone 2 MG/ML VIAL (DILAUDID) IV PRN (17:00)
[2023-02-24] MEDS ORDERED: VANCOMYCIN INJECTION 0.1 MG in NS (IVPB) 250 ML IV SCH (17:00)
[2023-02-24] MEDS ORDERED: ONDANSETRON 4 MG/2 ML (SDV) Z0FRAN IV PRN (17:00)
[2023-02-24] MEDS ORDERED: ANTACID SUSP 30 ML UDC (MYLANTA) PO PRN (17:00)
[2023-02-24] MEDS ORDERED: BISACODYL 10 MG SUPP (DULCOLAX) PR PRN (17:00)
[2023-02-24] MEDS ORDERED: CALCIUM CARBONATE 500 MG (TUMS) TAB.CHEW PO PRN (17:00)
[2023-02-24] MEDS ORDERED: LACTULOSE SYRUP 10GM/15ML (ENULOSE) 30ML UDC PO PRN (17:00)
[2023-02-24] MEDS ORDERED: ENOXAPARIN 40 MG/0.4 ML (LOVENOX) SYR SC SCH (17:00)
[2023-02-24] MEDS ORDERED: polyethylene glycoL POWDER 17 GM (MIRALAX) PACK PO PRN (17:00)
[2023-02-24] MEDS ORDERED: ALPRAZolam 1 MG (XANAX) TAB PO PRN (17:00)
[2023-02-24] MEDS ORDERED: diphenhydrAMINE 50 MG/ML INJ (BENADRYL) IVP PRN (17:00)
[2023-02-24] MEDS ORDERED: MILK OF MAGNESIA 400 MG/5 ML 30 ML UDC PO PRN (17:00)
[2023-02-24] MEDS ORDERED: MELATONIN 3 MG TABLET PO PRN (17:00)
[2023-02-24] MEDS ORDERED: cloNIDine 0.1 MG (CATAPRES) TAB PO PRN (17:00)
[2023-02-24] MEDS ORDERED: ONDANSETRON 4 MG (ZOFRAN) ORAL DISSOLVE TAB PO PRN (17:00)
[2023-02-24 17:20] VITALS: BP 111/71
[2023-02-24] MEDS ORDERED: NS IV 1000 ML 1,000 ML ONE (17:42)
[2023-02-24] MEDS: NS IV 1000 ML 1,000 ML IV SCH (17:44)
[2023-02-24] MEDS ORDERED: oxyCODONE/APAP 10/325MG (PERCOCET 10) TABLET PO ONE (19:55)
[2023-02-24] MEDS: oxyCODONE/APAP 10/325MG (PERCOCET 10) TABLET PO PRN (19:58)
[2023-02-24] MEDS: RT-ALBUTEROL/IPRATROPIUM 3 ML (DUONEB) VIAL INH SCH ×2 (20:05→22:04)
[2023-02-24 20:14] VITALS: BP 114/68
[2023-02-24] MEDS: CEFEPIME INJECTION 1,000 MG in NS (IVPB) 50 ML IV SCH (21:30)
[2023-02-24] MEDS: PANTOPRAZOLE 40 MG (PROTONIX) TAB PO SCH (21:34)
[2023-02-24] MEDS: DOCUSATE SODIUM 100 MG (COLACE) CAP PO SCH (21:34)
[2023-02-24] MEDS: ASPIRIN E.C. 81 MG (ECOTRIN) TAB PO SCH (21:34)
[2023-02-24] MEDS: GABAPENTIN 600 MG (NEURONTIN) TAB PO SCH ×2 (21:34→21:42)
[2023-02-24] MEDS: SENNOSIDES 8.6 MG (SENOKOT) TAB PO SCH (21:34)
[2023-02-24] MEDS: VANCOMYCIN 1 GM/NS 250 ML IVPB IV SCH ×2 (21:35)
[2023-02-24] MEDS: meTOprolol TARTRATE 50 MG (LOPRESSOR) TAB PO SCH (21:41)
[2023-02-24 23:46] VITALS: BP 103/50
[2023-02-25] MEDS: VANCOMYCIN 1 GM/NS 250 ML IVPB IV SCH ×2 (00:09)
[2023-02-25] MEDS: RT-ALBUTEROL/IPRATROPIUM 3 ML (DUONEB) VIAL INH SCH ×6 (03:11→23:18)
[2023-02-25 03:33] VITALS: BP 110/67
[2023-02-25] MEDS: oxyCODONE/APAP 10/325MG (PERCOCET 10) TABLET PO PRN ×4 (03:46→21:21)
[2023-02-25] MEDS: CEFEPIME INJECTION 1,000 MG in NS (IVPB) 50 ML IV SCH ×4 (03:52→21:07)
[2023-02-25] MEDS: NS IV 1000 ML 1,000 ML IV SCH ×3 (05:05→21:21)
[2023-02-25 06:08] LABS: BASOPHILS % (AUTO) 0 % (0-10); EOSINOPHILS # (AUTO) 0.2 10^3/uL (0.0-0.3); EOSINOPHILS % (AUTO) 2 % (0-10); HEMATOCRIT 36 % (40-54); HEMOGLOBIN 11.7 g/dL (13.3-17.7); LYMPHOCYTES % (AUTO) 8 % (12-44); MEAN CORPUSCULAR HEMOGLOBIN 30 pg (25-34); MEAN CORPUSCULAR HGB CONC 32 g/dL (32-36); MEAN CORPUSCULAR VOLUME 93 fL (80-99); MEAN PLATELET VOLUME 9.6 fL (9.0-12.2); MONOCYTES # (AUTO) 0.9 10^3/uL (0.0-1.0); MONOCYTES % (AUTO) 7 % (0-12); NEUTROPHILS # (AUTO) 10.8 10^3/uL (1.8-7.8); NEUTROPHILS % (AUTO) 83 % (42-75); PLATELET COUNT 215 10^3/uL (130-400); WHITE BLOOD COUNT 13.1 10^3/uL (4.3-11.0)
[2023-02-25 06:39] LABS: ALBUMIN 2.8 GM/DL (3.2-4.5); BILIRUBIN,TOTAL 0.7 MG/DL (0.1-1.0); CALCIUM 8.8 MG/DL (8.5-10.1); CREATININE SERUM 0.77 MG/DL (0.60-1.30); TOTAL PROTEIN 6.2 GM/DL (6.4-8.2)
[2023-02-25 07:43] VITALS: BP 105/55
[2023-02-25] MEDS ORDERED: UMECLIDINIUM BROMIDE (INCRUSE ELLIPTA) 7'S IH SCH (08:00)
[2023-02-25] MEDS: PANTOPRAZOLE 40 MG (PROTONIX) TAB PO SCH ×2 (08:56→16:35)
[2023-02-25] MEDS: GABAPENTIN 600 MG (NEURONTIN) TAB PO SCH ×4 (08:57→21:06)
[2023-02-25] MEDS: ALLOPURINOL 100 MG (ZYLOPRIM) TAB PO SCH (08:57)
[2023-02-25] MEDS: meTOprolol TARTRATE 50 MG (LOPRESSOR) TAB PO SCH ×2 (08:57→21:06)
[2023-02-25] MEDS: CLOPIDOGREL 75 MG (PLAVIX) TABLET PO SCH (08:57)
[2023-02-25] MEDS: ISOSORBIDE MONONITRATE 30 MG (IMDUR) TAB PO SCH (08:58)
[2023-02-25] MEDS: DOCUSATE SODIUM 100 MG (COLACE) CAP PO SCH ×2 (08:58→21:06)
[2023-02-25] MEDS: lisINopril 10 MG (PRINIVIL) TABLET PO SCH (08:59)
[2023-02-25] MEDS: NICOTINE 21 MG (NICODERM) PATCH TD SCH (08:59)
[2023-02-25] MEDS: CELECOXIB 100 MG (CeleBREX) CAP PO SCH ×2 (08:59→21:06)
[2023-02-25] MEDS: SENNOSIDES 8.6 MG (SENOKOT) TAB PO SCH ×2 (08:59→21:07)
[2023-02-25] MEDS: VANCOMYCIN 1250MG/250ML PREMIX 250 ML IV SCH ×2 (09:01→21:22)
[2023-02-25] MEDS: FLUTICASONE/VILANTEROL 100 MCG 14'S (BREO) IH SCH (10:41)
[2023-02-25] MEDS: POTASSIUM CL 10MEQ/50ML IVPB 50 ML IV SCH ×2 (11:07→13:08)
--- NOTE | 2023-02-25 11:19 | History & Physical ---
HPI History of Present Illness: Pt states he came to the hospital because he had pneumonia and started coughing up blood. He initially was seen at walk-in at [facility] on Sat or and had x- ray and was diagnosed with pneumonia and started on antibiotic (doxycycline) but he got worse. Started having a lot of coughing up blood yesterday so they came to ER. He first started getting sick with cough, fever and he suspected he had pneumonia. He states he has had pneumonia before a long time ago. Has pain with breathing in and out on the right side, so he "knew it wasn't a heart attack", reports he has had several of those. Source: patient, family Date seen by provider: Feb 25, 2023 Time Seen by Provider: 11:15 Attending Physician [facility] PCP Admitting Physician: Salma Acevedo DO Attending Physician: Dayanna Fitzgerald MD Consult Date of Admission Feb 24, 2023 at 16:17 Home Medications Home Medications Reviewed patient Home Medication Reconciliation performed by pharmacy medication reconciliations speech therapist technician and/or nursing. Patients Allergies have been reviewed. Allergies Coded Allergies: Penicillins (Unverified Allergy, Mild, 01/27/09) pneumococcal vaccine (Verified Allergy, Unknown, 12/04/19) [id number]-[id number]-Kmepid Hx Patient Social History Smoking Status: Current Everyday Smoker 2nd Hand Smoke Exposure: No Recent Hopitalizations: No Alcohol Use?: No Tobacco type used: Cigarettes Immunizations Up To Date Influenza Vaccine Up-to-Date: Yes; Up-to-Date First/Initial COVID19 Vaccinat: X3 Second COVID19 Vaccination Esteban: X3 Third COVID19 Vaccination Date: X3 Past Medical History PMHx: Stovall's disease Coronary artery disease with stenting x 5 PE HTN HLD Chronic pain COPD on nocturnal oxygen CHF SurgHx: Left AKA due to blood disorder Stovall's disease Coronary artery stenting Exploratory laparotomy Family Medical History Significant Family History: Heart Disease, Vascular Disease Review of Systems ([facility]) Constitutional: No fever EENTM: No nose congestion, No throat pain Respiratory: cough; No short of breath Cardiovascular: chest pain Gastrointestinal: No abdominal pain, No constipation, No diarrhea, No nausea, No vomiting Genitourinary: No dysuria Musculoskeletal: back pain (chronic), joint pain (chronic) Skin: No rash Psychiatric/Neurological: Denies Anxiety, Denies Depressed Reviewed Test Results Reviewed Test Results Lab Laboratory Tests Test 02/24/23 14:15 02/24/23 16:12 02/25/23 05:36 Range/Units White Blood Count 18.1 H 13.1 H 4.3-11.0 10^3/uL Red Blood Count 4.49 3.90 L 4.30-5.52 10^6/uL Hemoglobin 13.8 11.7 L 13.3-17.7 g/dL Hematocrit 42 36 L 40-54 % Mean Corpuscular Volume 94 93 80-99 fL Mean Corpuscular Hemoglobin 31 30 25-34 pg Mean Corpuscular Hemoglobin Concent 33 32 32-36 g/dL Red Cell Distribution Width 16.9 H 16.8 H 10.0-14.5 % Platelet Count 248 215 130-400 10^3/uL Mean Platelet Volume 9.6 9.6 9.0-12.2 fL Immature Granulocyte % (Auto) 1 1 % Neutrophils (%) (Auto) 81 H 83 H 42-75 % Lymphocytes (%) (Auto) 11 L 8 L 12-44 % Monocytes (%) (Auto) 7 7 0-12 % Eosinophils (%) (Auto) 1 2 0-10 % Basophils (%) (Auto) 0 0 0-10 % Neutrophils # (Auto) 14.6 H 10.8 H 1.8-7.8 10^3/uL Lymphocytes # (Auto) 2.0 1.0 1.0-4.0 10^3/uL Monocytes # (Auto) 1.2 H 0.9 0.0-1.0 10^3/uL Eosinophils # (Auto) 0.1 0.2 0.0-0.3 10^3/uL Basophils # (Auto) 0.0 0.0 0.0-0.1 10^3/uL Immature Granulocyte # (Auto) 0.2 H 0.1 0.0-0.1 10^3/uL Neutrophils % (Manual) 84 % Lymphocytes % (Manual) 11 % Monocytes % (Manual) 3 % Reactive Lymphocytes 2 % Blood Morphology Comment NORMAL Prothrombin Time 13.4 12.2-14.7 SEC INR Comment 1.0 0.8-1.4 Activated Partial Thromboplast Time 42 H 24-35 SEC Sodium Level 135 135 135-145 MMOL/L Potassium Level 3.2 L 3.0 L 3.6-5.0 MMOL/L Chloride Level 93 L 101 98-107 MMOL/L Carbon Dioxide Level 28 25 21-32 MMOL/L Anion Gap 14 9 5-14 MMOL/L Blood Urea Nitrogen 10 9 7-18 MG/DL Creatinine 0.95 0.77 0.60-1.30 MG/DL Estimat Glomerular Filtration Rate 98 109 BUN/Creatinine Ratio 11 12 Glucose Level 93 106 H 70-105 MG/DL Lactic Acid Level 2.21 *H 1.03 0.50-2.00 MMOL/L Calcium Level 9.5 8.8 8.5-10.1 MG/DL Corrected Calcium 10.1 9.8 8.5-10.1 MG/DL Total Bilirubin 0.7 0.7 0.1-1.0 MG/DL Aspartate Amino Transf (AST/SGOT) 15 14 5-34 U/L Alanine Aminotransferase (ALT/SGPT) < 6 7 0-55 U/L Alkaline Phosphatase 83 83 40-136 U/L Total Protein 7.4 6.2 L 6.4-8.2 GM/DL Albumin 3.3 2.8 L 3.2-4.5 GM/DL Radiology CXR 02/25/23: IMPRESSION: New airspace opacity in the right lung base suspicious for pneumonitis. Recommend follow-up to resolution. Physical Exam-(CHC) Physical Exam Vital Signs VS - Last 72 Hours, by Label 02/24/23 02/24/23 02/24/23 02/24/23 14:15 14:29 16:00 16:15 Temp 38.4 38.4 37.5 Pulse 106 Resp 20 B/P (MAP) 123/60 (81) 102/48 Pulse Ox 90 96 O2 Delivery Nasal Cannula Nasal Cannula O2 Flow Rate 2.00 2.00 2.00 02/24/23 02/24/23 02/24/23 02/24/23 16:30 16:45 17:20 17:22 Temp 36.8 36.8 Pulse 98 98 Resp 18 B/P (MAP) 111/71 (84) Pulse Ox 98 98 98 98 O2 Delivery Nasal Cannula Nasal Cannula Nasal Cannula O2 Flow Rate 2.00 2.00 2.00 FiO2 28 02/24/23 02/24/23 02/24/23 02/24/23 17:53 17:59 19:00 20:00 Temp 36.8 Pulse 88 81 Pulse Ox 94 O2 Delivery Nasal Cannula O2 Flow Rate 5.00 02/24/23 02/24/23 02/24/23 02/24/23 20:06 20:14 22:05 23:46 Temp 37.0 35.8 Pulse 92 87 Resp 18 18 B/P (MAP) 114/68 (83) 103/50 (67) Pulse Ox 89 93 92 94 O2 Delivery Nasal Cannula Nasal Cannula Nasal Cannula Nasal Cannula O2 Flow Rate 4.00 2.00 5.00 5.00 5.00 02/25/23 02/25/23 02/25/23 02/25/23 01:00 03:33 07:01 07:06 Temp 36.6 Pulse 80 108 87 Resp 18 B/P (MAP) 110/67 (81) Pulse Ox 93 90 O2 Delivery Nasal Cannula Nasal Cannula O2 Flow Rate 5.00 6.00 5.00 02/25/23 02/25/23 02/25/23 02/25/23 07:43 08:00 11:30 13:51 Temp 36.2 36.3 Pulse 99 92 74 Resp 18 19 B/P (MAP) 105/55 (72) 110/57 (74) Pulse Ox 93 93 94 O2 Delivery Nasal Cannula Nasal Cannula Nasal Cannula O2 Flow Rate 2.00 2.00 2.00 02/25/23 14:34 Pulse Ox 93 O2 Delivery Nasal Cannula O2 Flow Rate 8.00 Capillary Refill : General Appearance: no apparent distress Respiratory: other (expiratory wheezing, decreased breath sounds at right base) Cardiovascular: regular rate, rhythm, no murmur Gastrointestinal: normal bowel sounds, non tender, soft Extremities: no pedal edema, other (Left AKA) Neurologic/Psychiatric: normal mood/affect Skin: warm/dry Assessment/Plan Assessment/Plan Admission Status: Inpatient Order (span 2 midnights) Reason for Inpatient Admission: Sepsis with pneumonia (1) Sepsis Status: Acute Assessment & Plan: Suspected to be secondary to pneumonia, see below. (2) Right lower lobe pneumonia Status: Acute Assessment & Plan: Failed outpatient treatment with doxycycline, worsening. Started on cefepime and vancomycin. Qualifiers: Qualified Codes: J18.9 - Pneumonia, unspecified organism (3) Hemoptysis Status: Acute Assessment & Plan: Given history of PE and persistent hypoxia not on anticoagulation, will check CTA chest. (4) CAD (coronary artery disease) Status: Chronic Assessment & Plan: Resume home meds (5) Phantom limb pain Status: Chronic Assessment & Plan: Resume home meds (6) History of pulmonary embolism Status: Chronic Assessment & Plan: Reports he used to be on warfarin, uncertain why discontinued. (7) Hypertension Status: Chronic (8) Hyperlipidemia Status: Chronic (9) Stovall disease Status: Chronic (10) DVT prophylaxis Status: Acute Assessment & Plan: Enoxaparin DAYANNA FITZGERALD MD Feb 25, 2023 11:19
[2023-02-25 11:30] VITALS: BP 110/57
[2023-02-25] MEDS ORDERED: NS 100 ML (IVPB) BAG IV ONE (11:30)
[2023-02-25] MEDS ORDERED: HOLD METFORMIN - RECEIVED CONTRAST 20 ML VIAL IV SCH (11:30)
[2023-02-25] MEDS ORDERED: IOHEXOL 350 MG/ML 100 ML (OMNIPAQUE 350) VIAL IV ONE (11:30)
--- NOTE | 2023-02-25 12:24 | Diagnostic Imaging Report ---
EXAMINATION: CT angiogram chest TECHNIQUE: Postcontrast CTA of the chest obtained utilizing PE protocol. Coronal and sagittal reformats reconstructed.. Auto Exposure Controls were utilized during the CT exam to meet ALARA standards for radiation dose reduction. HISTORY: Shortness of breath COMPARISON: CT chest on 12/03/2019.. FINDINGS: Pulmonary emboli seen with saddle embolus between the left upper and left interlobar pulmonary artery and complete occlusion of the right truncus anterior and scattered of pulmonary emboli within the right lower lobe bronchi. No evidence of heart strain. No pericardial effusion. Organized mass mass within the right lower lobe measuring 6.6 x 6.0 cm (image 96 series 2). Small right pleural effusion. The heart is enlarged. There is no pericardial effusion. No lymphadenopathy within the chest. Included views of the abdomen demonstrates no significant abnormality. The osseous structures demonstrate no lytic or sclerotic bone lesion. IMPRESSION: Multifocal pulmonary emboli. No evidence of heart strain. Airspace opacity within the right lower lobe may represent an infectious process or infarction. Superimposed 6 cm mass in the right lower lobe may represent organizing pneumonia or primary lung cancer. Recommend close observation and follow-up. No apparent lymphadenopathy within the chest. Cardiomegaly. Dictated by: Dictated on workstation # [id number]
[2023-02-25] MEDS: predniSONE 20 MG TAB PO SCH (13:07)
[2023-02-25] MEDS: LIDOCAINE 4% (SALONPAS) PATCH TOP SCH (13:07)
[2023-02-25] MEDS ORDERED: ATOR20TA66 PO (13:48)
[2023-02-25] MEDS ORDERED: DOCU100T2 PO (13:50)
[2023-02-25] MEDS ORDERED: ALBU8.5H6 PO (13:50)
[2023-02-25] MEDS ORDERED: ALBU2.5V4 PO (13:50)
[2023-02-25] MEDS: TIOTROPIUM INH 4 GM (SPIRIVA Respimat) IH SCH (14:34)
[2023-02-25] MEDS ORDERED: ENOXAPARIN 150 MG/ML (LOVENOX) SYR SQ SCH (15:00)
[2023-02-25 16:00] VITALS: BP 113/65
[2023-02-25] MEDS: ENOXAPARIN 100 MG/1 ML (LOVENOX) SYR SC SCH (16:36)
[2023-02-25 19:10] VITALS: BP 113/65
[2023-02-25] MEDS: ASPIRIN E.C. 81 MG (ECOTRIN) TAB PO SCH (21:05)
[2023-02-25] MEDS: LIDOCAINE PATCH REMOVAL TP SCH (21:10)
[2023-02-25 23:54] VITALS: BP 121/73
[2023-02-26] MEDS: RT-ALBUTEROL/IPRATROPIUM 3 ML (DUONEB) VIAL INH SCH ×6 (02:35→22:15)
[2023-02-26 03:22] VITALS: BP 117/56
[2023-02-26] MEDS: CEFEPIME INJECTION 1,000 MG in NS (IVPB) 50 ML IV SCH ×4 (03:38→21:19)
[2023-02-26] MEDS: oxyCODONE/APAP 10/325MG (PERCOCET 10) TABLET PO PRN ×2 (03:38→20:38)
[2023-02-26] MEDS: ENOXAPARIN 100 MG/1 ML (LOVENOX) SYR SC SCH ×2 (03:38→15:38)
[2023-02-26] MEDS: predniSONE 20 MG TAB PO SCH (05:32)
[2023-02-26] MEDS: PANTOPRAZOLE 40 MG (PROTONIX) TAB PO SCH ×2 (05:32→15:38)
[2023-02-26 05:47] LABS: BASOPHILS % (AUTO) 0 % (0-10); EOSINOPHILS % (AUTO) 0 % (0-10); HEMATOCRIT 34 % (40-54); HEMOGLOBIN 11.2 g/dL (13.3-17.7); LYMPHOCYTES # (AUTO) 1.1 10^3/uL (1.0-4.0); LYMPHOCYTES % (AUTO) 8 % (12-44); MEAN CORPUSCULAR HEMOGLOBIN 31 pg (25-34); MEAN CORPUSCULAR HGB CONC 33 g/dL (32-36); MEAN CORPUSCULAR VOLUME 95 fL (80-99); MONOCYTES # (AUTO) 0.7 10^3/uL (0.0-1.0); MONOCYTES % (AUTO) 5 % (0-12); NEUTROPHILS # (AUTO) 11.8 10^3/uL (1.8-7.8); NEUTROPHILS % (AUTO) 86 % (42-75); PLATELET COUNT 237 10^3/uL (130-400); WHITE BLOOD COUNT 13.7 10^3/uL (4.3-11.0)
[2023-02-26 06:04] LABS: ALBUMIN 2.6 GM/DL (3.2-4.5); CHLORIDE 107 MMOL/L (98-107); POTASSIUM 3.4 MMOL/L (3.6-5.0); SODIUM 138 MMOL/L (135-145)
[2023-02-26 06:06] LABS: GLUCOSE 167 MG/DL (70-105)
[2023-02-26 06:07] LABS: TOTAL PROTEIN 5.9 GM/DL (6.4-8.2)
[2023-02-26 06:08] LABS: BILIRUBIN,TOTAL 0.2 MG/DL (0.1-1.0); CARBON DIOXIDE 23 MMOL/L (21-32)
[2023-02-26 06:10] LABS: ALKALINE PHOSPHATASE 62 U/L (40-136); CREATININE SERUM 0.78 MG/DL (0.60-1.30); GFR ESTIMATED 109
[2023-02-26 06:11] LABS: BUN/CREATININE RATIO 12
[2023-02-26 06:13] LABS: ALANINE AMINOTRANSFERASE < 6 U/L (0-55)
[2023-02-26] MEDS: TIOTROPIUM INH 4 GM (SPIRIVA Respimat) IH SCH (07:14)
[2023-02-26 07:40] VITALS: BP 136/60
[2023-02-26] MEDS ORDERED: TIOTROPIUM INH 4 GM (SPIRIVA Respimat) IH SCH (08:00)
[2023-02-26] MEDS: meTOprolol TARTRATE 50 MG (LOPRESSOR) TAB PO SCH ×2 (08:09→20:34)
[2023-02-26] MEDS: GABAPENTIN 600 MG (NEURONTIN) TAB PO SCH ×4 (08:09→20:33)
[2023-02-26] MEDS: CLOPIDOGREL 75 MG (PLAVIX) TABLET PO SCH (08:09)
[2023-02-26] MEDS: ISOSORBIDE MONONITRATE 30 MG (IMDUR) TAB PO SCH (08:09)
[2023-02-26] MEDS: lisINopril 10 MG (PRINIVIL) TABLET PO SCH (08:09)
[2023-02-26] MEDS: DOCUSATE SODIUM 100 MG (COLACE) CAP PO SCH ×2 (08:10→20:33)
[2023-02-26] MEDS: SENNOSIDES 8.6 MG (SENOKOT) TAB PO SCH ×2 (08:10→20:34)
[2023-02-26] MEDS: NICOTINE 21 MG (NICODERM) PATCH TD SCH (08:10)
[2023-02-26] MEDS: CELECOXIB 100 MG (CeleBREX) CAP PO SCH ×2 (08:10→20:33)
[2023-02-26] MEDS: ALLOPURINOL 100 MG (ZYLOPRIM) TAB PO SCH (08:12)
[2023-02-26] MEDS: LIDOCAINE 4% (SALONPAS) PATCH TOP SCH (08:13)
[2023-02-26] MEDS ORDERED: TROUGH ORDER-PHARMACY XX ONE ×2 (08:30→20:30)
[2023-02-26] MEDS ORDERED: KCL 20 MEQ TAB (K-DUR) PO ONE (08:45)
[2023-02-26] MEDS: VANCOMYCIN 1250MG/250ML PREMIX 250 ML IV SCH (08:48)
[2023-02-26] MEDS ORDERED: LIDOCAINE 4% (SALONPAS) PATCH TOP SCH (09:00)
[2023-02-26] MEDS: NS IV 1000 ML 1,000 ML IV SCH (09:50)
[2023-02-26] MEDS: FLUTICASONE/VILANTEROL 100 MCG 14'S (BREO) IH SCH (11:11)
[2023-02-26 11:35] VITALS: BP 125/58
--- NOTE | 2023-02-26 11:53 | Progress Note ---
Subjective Subjective/Events-last exam Pt states he is feeling much better breathing ward than when he came in and is not coughing as much as he was, is still coughing up some blood but not as much. Focused Exam Lactate Level 02/24/23 14:15: Lactic Acid Level 2.21*H 02/24/23 16:12: Lactic Acid Level 1.03 Objective Exam Last Set of Vital Signs Vital Signs Date Time Temp Pulse Resp B/P (MAP) Pulse Ox O2 Delivery O2 Flow Rate FiO2 02/26/23 11:35 36.6 82 18 125/58 (80) 93 Nasal Cannula 2.00 02/24/23 17:20 28 Capillary Refill : I&O Intake and Output 02/26/23 00:00 Intake Total 3110 ml Output Total 550 ml Balance 2560 ml Intake Oral 1810 ml IV Total 1300 ml Output Urine Total 550 ml # Voids 7 # Bowel Movements 2 General: Alert Lungs: Other (expiratory wheezing throughout) Heart: Regular Rate, No Murmurs Psych/Mental Status: Mood NL Results/Procedures Lab Laboratory Tests 02/26/23 05:35: White Blood Count 13.7H, Red Blood Count 3.61L, Hemoglobin 11.2L, Hematocrit 34L , Mean Corpuscular Volume 95, Mean Corpuscular Hemoglobin 31, Mean Corpuscular Hemoglobin Concent 33, Red Cell Distribution Width 17.4H, Platelet Count 237, Mean Platelet Volume 10.0, Immature Granulocyte % (Auto) 0, Neutrophils (%) (Auto) 86H, Lymphocytes (%) (Auto) 8L, Monocytes (%) (Auto) 5, Eosinophils (%) (Auto) 0, Basophils (%) (Auto) 0, Neutrophils # (Auto) 11.8H, Lymphocytes # (Auto) 1.1, Monocytes # (Auto) 0.7, Eosinophils # (Auto) 0.0, Basophils # (Auto) 0.0, Immature Granulocyte # (Auto) 0.1, Sodium Level 138, Potassium Level 3.4L, Chloride Level 107, Carbon Dioxide Level 23, Anion Gap 8, Blood Urea Nitrogen 9, Creatinine 0.78, Estimat Glomerular Filtration Rate 109, BUN/Creatinine Ratio 12, Glucose Level 167H, Calcium Level 9.0, Corrected Calcium 10.1, Total Bilirubin 0.2, Aspartate Amino Transf (AST/SGOT) 8, Alanine Aminotransferase (ALT/SGPT) < 6, Alkaline Phosphatase 62, Total Protein 5.9L, Albumin 2.6L 02/26/23 08:15: Vancomycin Level Trough 22.2H Microbiology 02/24/23 Blood Culture - Preliminary, Resulted No growth Radiology CXR 02/25/23: IMPRESSION: New airspace opacity in the right lung base suspicious for pneumonitis. Recommend follow-up to resolution. Assessment/Plan Assessment/Plan (1) Sepsis Status: Acute Assessment & Plan: Suspected to be secondary to pneumonia, see below. (2) Right lower lobe pneumonia Status: Acute Assessment & Plan: Failed outpatient treatment with doxycycline, worsening. Started on cefepime and vancomycin and having clinical improvement but persistent hypoxia. Qualifiers: Qualified Codes: J18.9 - Pneumonia, unspecified organism (3) Hemoptysis Status: Acute Assessment & Plan: Given history of PE and persistent hypoxia not on anticoagulation, will check CTA chest. CTA chest positive for PE, see below. (4) CAD (coronary artery disease) Status: Chronic Assessment & Plan: Resume home meds (5) Phantom limb pain Status: Chronic Assessment & Plan: Resume home meds (6) History of pulmonary embolism Status: Chronic Assessment & Plan: Reports he used to be on warfarin, uncertain why discontinued. (7) Hypertension Status: Chronic (8) Hyperlipidemia Status: Chronic (9) Stovall disease Status: Chronic (10) Lung mass Status: Acute Assessment & Plan: Possible mass underlying pneumonia vs infarction. Will follow up after treatment of pneumonia and PE. (11) Pulmonary emboli Status: Acute Assessment & Plan: No cardiovascular compromise, but persistent marked hypoxia, started on treatment dose enoxaparin, wean supplemental O2 as tolerated. Qualifiers: Qualified Codes: I26.92 - Saddle embolus of pulmonary artery without acute cor pulmonale (12) DVT prophylaxis Status: Acute Assessment & Plan: Enoxaparin treatment dose DAYANNA PATE MD Feb 26, 2023 11:53
[2023-02-26 15:54] VITALS: BP 134/62
[2023-02-26 20:20] VITALS: BP 127/59
[2023-02-26] MEDS: ASPIRIN E.C. 81 MG (ECOTRIN) TAB PO SCH (20:33)
[2023-02-26] MEDS: LIDOCAINE PATCH REMOVAL TP SCH (20:34)
[2023-02-26] MEDS: VANCOMYCIN 1 GM/NS 250 ML IVPB IV SCH ×2 (22:38)
[2023-02-26 23:23] VITALS: BP 113/59
[2023-02-27] MEDS: RT-ALBUTEROL/IPRATROPIUM 3 ML (DUONEB) VIAL INH SCH ×4 (03:07→21:17)
[2023-02-27] MEDS: CEFEPIME INJECTION 1,000 MG in NS (IVPB) 50 ML IV SCH ×4 (03:28→21:39)
[2023-02-27] MEDS: ENOXAPARIN 100 MG/1 ML (LOVENOX) SYR SC SCH ×2 (03:28→16:21)
[2023-02-27] MEDS: NS IV 1000 ML 1,000 ML IV SCH ×2 (03:28→16:23)
[2023-02-27] MEDS: oxyCODONE/APAP 10/325MG (PERCOCET 10) TABLET PO PRN ×4 (03:30→20:18)
[2023-02-27 03:34] VITALS: BP 126/69
[2023-02-27 04:31] LABS: BASOPHILS % (AUTO) 0 % (0-10); EOSINOPHILS # (AUTO) 0.1 10^3/uL (0.0-0.3); EOSINOPHILS % (AUTO) 0 % (0-10); HEMATOCRIT 32 % (40-54); HEMOGLOBIN 10.4 g/dL (13.3-17.7); LYMPHOCYTES # (AUTO) 2.2 10^3/uL (1.0-4.0); LYMPHOCYTES % (AUTO) 19 % (12-44); MEAN CORPUSCULAR HEMOGLOBIN 30 pg (25-34); MEAN CORPUSCULAR HGB CONC 32 g/dL (32-36); MEAN CORPUSCULAR VOLUME 94 fL (80-99); MEAN PLATELET VOLUME 9.6 fL (9.0-12.2); MONOCYTES # (AUTO) 0.8 10^3/uL (0.0-1.0); MONOCYTES % (AUTO) 7 % (0-12); NEUTROPHILS # (AUTO) 8.4 10^3/uL (1.8-7.8); NEUTROPHILS % (AUTO) 73 % (42-75); PLATELET COUNT 237 10^3/uL (130-400); WHITE BLOOD COUNT 11.5 10^3/uL (4.3-11.0)
[2023-02-27] MEDS: RT-ALBUTEROL/IPRATROPIUM 3 ML (DUONEB) VIAL INH PRN (04:38)
[2023-02-27 04:49] LABS: ALBUMIN 2.4 GM/DL (3.2-4.5); CHLORIDE 110 MMOL/L (98-107); POTASSIUM 3.2 MMOL/L (3.6-5.0); SODIUM 142 MMOL/L (135-145)
[2023-02-27 04:50] LABS: CALCIUM 8.6 MG/DL (8.5-10.1)
[2023-02-27 04:52] LABS: GLUCOSE 110 MG/DL (70-105); TOTAL PROTEIN 5.4 GM/DL (6.4-8.2)
[2023-02-27 04:53] LABS: BILIRUBIN,TOTAL 0.2 MG/DL (0.1-1.0); CARBON DIOXIDE 23 MMOL/L (21-32)
[2023-02-27 04:55] LABS: ALKALINE PHOSPHATASE 58 U/L (40-136); CREATININE SERUM 0.73 MG/DL (0.60-1.30); GFR ESTIMATED 111
[2023-02-27 04:56] LABS: BUN/CREATININE RATIO 10
[2023-02-27 04:58] LABS: ALANINE AMINOTRANSFERASE < 6 U/L (0-55)
[2023-02-27] MEDS: PANTOPRAZOLE 40 MG (PROTONIX) TAB PO SCH ×2 (06:11→16:21)
[2023-02-27] MEDS: predniSONE 20 MG TAB PO SCH (06:11)
[2023-02-27] MEDS: TIOTROPIUM INH 4 GM (SPIRIVA Respimat) IH SCH (06:45)
[2023-02-27] MEDS: FLUTICASONE/VILANTEROL 100 MCG 14'S (BREO) IH SCH (06:46)
[2023-02-27 06:48] VITALS: BP 126/69
[2023-02-27 08:02] VITALS: BP 145/66
[2023-02-27] MEDS: ISOSORBIDE MONONITRATE 30 MG (IMDUR) TAB PO SCH (08:10)
[2023-02-27] MEDS: CELECOXIB 100 MG (CeleBREX) CAP PO SCH ×2 (08:10→19:41)
[2023-02-27] MEDS: NICOTINE 21 MG (NICODERM) PATCH TD SCH (08:10)
[2023-02-27] MEDS: lisINopril 10 MG (PRINIVIL) TABLET PO SCH (08:10)
[2023-02-27] MEDS: LIDOCAINE 4% (SALONPAS) PATCH TOP SCH (08:10)
[2023-02-27] MEDS: ALLOPURINOL 100 MG (ZYLOPRIM) TAB PO SCH (08:10)
[2023-02-27] MEDS: VANCOMYCIN 1 GM/NS 250 ML IVPB IV SCH ×4 (08:11→19:41)
[2023-02-27] MEDS: meTOprolol TARTRATE 50 MG (LOPRESSOR) TAB PO SCH ×2 (08:11→19:42)
[2023-02-27] MEDS: SENNOSIDES 8.6 MG (SENOKOT) TAB PO SCH ×2 (08:11→21:10)
[2023-02-27] MEDS: DOCUSATE SODIUM 100 MG (COLACE) CAP PO SCH ×2 (08:11→21:09)
[2023-02-27] MEDS: GABAPENTIN 600 MG (NEURONTIN) TAB PO SCH ×4 (08:11→19:41)
[2023-02-27] MEDS: CLOPIDOGREL 75 MG (PLAVIX) TABLET PO SCH (08:11)
[2023-02-27 11:41] VITALS: BP 127/65
[2023-02-27 16:15] VITALS: BP 117/66
--- NOTE | 2023-02-27 18:20 | Progress Note ---
Subjective Subjective/Events-last exam Patient feeling better. Still coughing up blood but reports that it is less then it has been. Shortness of breath improved. Has not been up out of bed. Tolerating PO diet. Review of Systems General: Fatigue Pulmonary: Dyspnea, Cough Cardiovascular: No: Chest Pain, Palpitations, Edema Gastrointestinal: No: Nausea, Vomiting, Abdominal Pain, Diarrhea, Constipation Neurological: Weakness Objective Exam Last Set of Vital Signs Vital Signs Date Time Temp Pulse Resp B/P (MAP) Pulse Ox O2 Delivery O2 Flow Rate FiO2 02/27/23 16:15 36.6 78 18 117/66 (83) 94 High Flow N/C 2.00 02/24/23 17:20 28 Capillary Refill : I&O Intake and Output 02/27/23 00:00 Intake Total 2400 ml Output Total 1900 ml Balance 500 ml Intake Oral 2050 ml IV Total 350 ml Output Urine Total 1900 ml # Bowel Movements 2 General: Alert, Oriented X3, No Acute Distress Lungs: Normal Air Movement, Other (basilar wheezing, normal work of breathing) Heart: Regular Rate, No Murmurs Abdomen: Normal Bowel Sounds, Soft, No Tenderness, No Masses Extremities: No Edema, No Tenderness/Swelling Neuro: Normal Speech Results/Procedures Lab Laboratory Tests 02/26/23 20:30: Vancomycin Level Trough 9.8L 02/27/23 04:19: White Blood Count 11.5H, Red Blood Count 3.44L, Hemoglobin 10.4L, Hematocrit 32L , Mean Corpuscular Volume 94, Mean Corpuscular Hemoglobin 30, Mean Corpuscular Hemoglobin Concent 32, Red Cell Distribution Width 17.4H, Platelet Count 237, Mean Platelet Volume 9.6, Immature Granulocyte % (Auto) 1, Neutrophils (%) (Auto) 73, Lymphocytes (%) (Auto) 19, Monocytes (%) (Auto) 7, Eosinophils (%) (Auto) 0, Basophils (%) (Auto) 0, Neutrophils # (Auto) 8.4H, Lymphocytes # (Auto) 2.2, Monocytes # (Auto) 0.8, Eosinophils # (Auto) 0.1, Basophils # (Auto) 0.0, Immature Granulocyte # (Auto) 0.1, Sodium Level 142, Potassium Level 3.2L, Chloride Level 110H, Carbon Dioxide Level 23, Anion Gap 9, Blood Urea Nitrogen 7, Creatinine 0.73, Estimat Glomerular Filtration Rate 111, BUN/Creatinine Ratio 10, Glucose Level 110H, Calcium Level 8.6, Corrected Calcium 9.9, Total Bilirubin 0.2, Aspartate Amino Transf (AST/SGOT) 10, Alanine Aminotransferase (ALT/SGPT) < 6, Alkaline Phosphatase 58, Total Protein 5.4L, Albumin 2.4L Microbiology 02/24/23 Blood Culture - Preliminary, Resulted No growth Radiology CXR 02/25/23: IMPRESSION: New airspace opacity in the right lung base suspicious for pneumonitis. Recommend follow-up to resolution. Assessment/Plan Assessment/Plan (1) Sepsis Status: Resolved Assessment & Plan: Suspected to be secondary to pneumonia, see below. Qualifiers: Qualified Codes: A41.9 - Sepsis, unspecified organism (2) Right lower lobe pneumonia Status: Acute Assessment & Plan: Failed outpatient treatment with doxycycline, worsening. Started on cefepime and vancomycin and having clinical improvement but persistent hypoxia. 02/27: improving, will titrate oxygen as tolerated, may need oxygen at discharge Qualifiers: Qualified Codes: J18.9 - Pneumonia, unspecified organism (3) Hemoptysis Status: Acute Assessment & Plan: Given history of PE and persistent hypoxia not on anticoagulation, will check CTA chest. CTA chest positive for PE, see below. (4) Pulmonary emboli Status: Acute Assessment & Plan: No cardiovascular compromise, but persistent marked hypoxia, started on treatment dose enoxaparin, wean supplemental O2 as tolerated. 02/27: Continue Enoxaparin treatment, will transition to PO soon Qualifiers: Qualified Codes: I26.92 - Saddle embolus of pulmonary artery without acute cor pulmonale (5) CAD (coronary artery disease) Status: Chronic Assessment & Plan: Resume home meds (6) Phantom limb pain Status: Chronic Assessment & Plan: Resume home meds (7) History of pulmonary embolism Status: Chronic Assessment & Plan: Reports he used to be on warfarin, uncertain why discontinued. (8) Hypertension Status: Chronic (9) Hyperlipidemia Status: Chronic (10) Stovall disease Status: Chronic (11) Lung mass Status: Acute Assessment & Plan: Possible mass underlying pneumonia vs infarction. Will follow up after treatment of pneumonia and PE. (12) DVT prophylaxis Status: Acute Assessment & Plan: Enoxaparin treatment dose INDIO QUINTERO MD Feb 27, 2023 18:20
[2023-02-27] MEDS: ASPIRIN E.C. 81 MG (ECOTRIN) TAB PO SCH (19:42)
[2023-02-27 20:30] VITALS: BP 147/76
[2023-02-27] MEDS: LIDOCAINE PATCH REMOVAL TP SCH (21:40)
[2023-02-28] VITALS (7 sets, daily range): BP systolic 124–158; BP diastolic 64–79
[2023-02-28] MEDS: RT-ALBUTEROL/IPRATROPIUM 3 ML (DUONEB) VIAL INH SCH ×4 (02:40→21:50)
[2023-02-28] MEDS: ENOXAPARIN 100 MG/1 ML (LOVENOX) SYR SC SCH ×2 (03:49→16:33)
[2023-02-28] MEDS: CEFEPIME INJECTION 1,000 MG in NS (IVPB) 50 ML IV SCH ×4 (03:49→21:58)
[2023-02-28] MEDS: oxyCODONE/APAP 10/325MG (PERCOCET 10) TABLET PO PRN ×4 (03:49→18:10)
[2023-02-28 05:19] LABS: BASOPHILS % (AUTO) 0 % (0-10); EOSINOPHILS # (AUTO) 0.1 10^3/uL (0.0-0.3); EOSINOPHILS % (AUTO) 1 % (0-10); HEMATOCRIT 35 % (40-54); HEMOGLOBIN 11.3 g/dL (13.3-17.7); LYMPHOCYTES % (AUTO) 22 % (12-44); MEAN CORPUSCULAR HEMOGLOBIN 31 pg (25-34); MEAN CORPUSCULAR HGB CONC 32 g/dL (32-36); MEAN CORPUSCULAR VOLUME 95 fL (80-99); MEAN PLATELET VOLUME 10.5 fL (9.0-12.2); MONOCYTES # (AUTO) 0.7 10^3/uL (0.0-1.0); MONOCYTES % (AUTO) 8 % (0-12); NEUTROPHILS # (AUTO) 6.5 10^3/uL (1.8-7.8); NEUTROPHILS % (AUTO) 69 % (42-75); PLATELET COUNT 370 10^3/uL (130-400); WHITE BLOOD COUNT 9.4 10^3/uL (4.3-11.0)
[2023-02-28 05:28] LABS: ALBUMIN 2.6 GM/DL (3.2-4.5)
[2023-02-28 05:29] LABS: POTASSIUM 3.8 MMOL/L (3.6-5.0)
[2023-02-28 05:31] LABS: TOTAL PROTEIN 6.2 GM/DL (6.4-8.2)
[2023-02-28 05:33] LABS: BILIRUBIN,TOTAL 0.2 MG/DL (0.1-1.0)
[2023-02-28 05:34] LABS: CREATININE SERUM 0.77 MG/DL (0.60-1.30)
[2023-02-28] MEDS: NS IV 1000 ML 1,000 ML IV SCH (06:32)
[2023-02-28] MEDS: predniSONE 20 MG TAB PO SCH (06:32)
[2023-02-28] MEDS: PANTOPRAZOLE 40 MG (PROTONIX) TAB PO SCH ×2 (06:32→16:31)
[2023-02-28] MEDS: CLOPIDOGREL 75 MG (PLAVIX) TABLET PO SCH (08:15)
[2023-02-28] MEDS: CELECOXIB 100 MG (CeleBREX) CAP PO SCH ×2 (08:15→20:31)
[2023-02-28] MEDS: ALLOPURINOL 100 MG (ZYLOPRIM) TAB PO SCH (08:15)
[2023-02-28] MEDS: SENNOSIDES 8.6 MG (SENOKOT) TAB PO SCH ×2 (08:15→21:40)
[2023-02-28] MEDS: GABAPENTIN 600 MG (NEURONTIN) TAB PO SCH ×4 (08:15→20:32)
[2023-02-28] MEDS: DOCUSATE SODIUM 100 MG (COLACE) CAP PO SCH ×2 (08:16→21:40)
[2023-02-28] MEDS: lisINopril 10 MG (PRINIVIL) TABLET PO SCH (08:16)
[2023-02-28] MEDS: meTOprolol TARTRATE 50 MG (LOPRESSOR) TAB PO SCH ×2 (08:16→20:31)
[2023-02-28] MEDS: NICOTINE 21 MG (NICODERM) PATCH TD SCH (08:17)
[2023-02-28] MEDS: VANCOMYCIN 1 GM/NS 250 ML IVPB IV SCH ×4 (08:18→20:31)
[2023-02-28] MEDS: ISOSORBIDE MONONITRATE 30 MG (IMDUR) TAB PO SCH (08:29)
[2023-02-28] MEDS: LIDOCAINE 4% (SALONPAS) PATCH TOP SCH (08:30)
[2023-02-28] MEDS: TIOTROPIUM INH 4 GM (SPIRIVA Respimat) IH SCH (09:23)
[2023-02-28] MEDS: FLUTICASONE/VILANTEROL 100 MCG 14'S (BREO) IH SCH (14:43)
--- NOTE | 2023-02-28 16:47 | Progress Note ---
Subjective Subjective/Events-last exam Patient states that he is feeling much better this AM. Still coughing up blood. Shortness of breath improving. tolerating PO diet. BM this AM Review of Systems General: Malaise Pulmonary: Dyspnea, Cough Cardiovascular: No: Chest Pain, Palpitations, Edema Gastrointestinal: No: Nausea, Vomiting, Abdominal Pain, Diarrhea, Constipation Neurological: Weakness, Incoordination Objective Exam Last Set of Vital Signs Vital Signs Date Time Temp Pulse Resp B/P (MAP) Pulse Ox O2 Delivery O2 Flow Rate FiO2 02/28/23 15:32 36.8 79 18 132/71 (91) 95 High Flow N/C 2.00 02/24/23 17:20 28 Capillary Refill : I&O Intake and Output 02/28/23 00:00 Intake Total 6320 ml Output Total 1950 ml Balance 4370 ml Intake Oral 4970 ml IV Total 1350 ml Output Urine Total 1950 ml # Voids 5 # Bowel Movements 4 General: Alert, Oriented X3, No Acute Distress Lungs: Clear to Auscultation, Normal Air Movement Heart: Regular Rate, No Murmurs Abdomen: Normal Bowel Sounds, Soft, No Tenderness Extremities: No Edema, No Tenderness/Swelling Neuro: Normal Speech, Cranial Nerves 3-12 NL Results/Procedures Lab Laboratory Tests 02/28/23 04:58: White Blood Count 9.4, Red Blood Count 3.67L, Hemoglobin 11.3L, Hematocrit 35L, Mean Corpuscular Volume 95, Mean Corpuscular Hemoglobin 31, Mean Corpuscular Hemoglobin Concent 32, Red Cell Distribution Width 17.8H, Platelet Count 370, Mean Platelet Volume 10.5, Immature Granulocyte % (Auto) 1, Neutrophils (%) (Auto) 69, Lymphocytes (%) (Auto) 22, Monocytes (%) (Auto) 8, Eosinophils (%) (Auto) 1, Basophils (%) (Auto) 0, Neutrophils # (Auto) 6.5, Lymphocytes # (Auto) 2.0, Monocytes # (Auto) 0.7, Eosinophils # (Auto) 0.1, Basophils # (Auto) 0.0, Immature Granulocyte # (Auto) 0.1, Sodium Level 142, Potassium Level 3.8, Chloride Level 109H, Carbon Dioxide Level 25, Anion Gap 8, Blood Urea Nitrogen 8, Creatinine 0.77, Estimat Glomerular Filtration Rate 109, BUN/Creatinine Ratio 10, Glucose Level 112H, Calcium Level 9.0, Corrected Calcium 10.1, Total Bilirubin 0.2, Aspartate Amino Transf (AST/SGOT) 19, Alanine Aminotransferase (ALT/SGPT) 8, Alkaline Phosphatase 73, Total Protein 6.2L, Albumin 2.6L Microbiology 02/24/23 Blood Culture - Preliminary, Resulted No growth Radiology CXR 02/25/23: IMPRESSION: New airspace opacity in the right lung base suspicious for pneumonitis. Recommend follow-up to resolution. Assessment/Plan Assessment/Plan (1) Sepsis Status: Resolved Assessment & Plan: Suspected to be secondary to pneumonia, see below. Qualifiers: Qualified Codes: A41.9 - Sepsis, unspecified organism (2) Right lower lobe pneumonia Status: Acute Assessment & Plan: Failed outpatient treatment with doxycycline, worsening. Started on cefepime and vancomycin and having clinical improvement but persistent hypoxia. 02/27: improving, will titrate oxygen as tolerated, may need oxygen at discharge 02/28: Transition to PO antibiotics tomorrow Qualifiers: Qualified Codes: J18.9 - Pneumonia, unspecified organism (3) Hemoptysis Status: Acute Assessment & Plan: Given history of PE and persistent hypoxia not on anticoagulation, will check CTA chest. CTA chest positive for PE, see below. (4) Pulmonary emboli Status: Acute Assessment & Plan: No cardiovascular compromise, but persistent marked hypoxia, started on treatment dose enoxaparin, wean supplemental O2 as tolerated. 02/27: Continue Enoxaparin treatment, will transition to PO soon Qualifiers: Qualified Codes: I26.92 - Saddle embolus of pulmonary artery without acute cor pulmonale (5) CAD (coronary artery disease) Status: Chronic Assessment & Plan: Resume home meds (6) Phantom limb pain Status: Chronic Assessment & Plan: Resume home meds (7) History of pulmonary embolism Status: Chronic Assessment & Plan: Reports he used to be on warfarin, uncertain why discontinu ed. (8) Hypertension Status: Chronic (9) Hyperlipidemia Status: Chronic (10) Stovall disease Status: Chronic (11) Lung mass Status: Acute Assessment & Plan: Possible mass underlying pneumonia vs infarction. Will follow up after treatment of pneumonia and PE. (12) DVT prophylaxis Status: Acute Assessment & Plan: Enoxaparin treatment dose INDIO QUINTERO MD Feb 28, 2023 16:46
--- NOTE | 2023-02-28 18:08 | Physician Query-Final Dx ---
DONNA NICHOLAS 02/28/23 1808: Final Diagnosis Give Final Diagnosis Please give Final Diagnosis The medical record reflects the following clinical evidence: Clinical Indicators: RR 20 on admission has been mostly 18-20, started on O2 at 2 L has been as high as 8 L at times was initially 90% on 2L (P/F=214), has been as low as 89% on 4 L (P/F=158) and 90% on 6 L, (P/F=136) documentation of shortness of air at rest and with exertion on admission Risk Factor(s): Sepsis with pneumonia, hemoptysis and saddle embolus Treatment: Supplemental oxygen up to 8 L respiratory monitoring, IV antibiotics Acute respiratory failure with hypoxia, present on admission, improving Other explanation of clinical findings Unable to determine (no explanation for clinical findings) Please clarify and document your clinical opinion in the progress notes and discharge summary including the definitive and/or presumptive diagnosis, (suspected or probable), related to the above clinical findings. Please include clinical findings supporting your diagnosis. Donna Nicholas, MSN, RN [facility] [employer] [phone] [email or web address] INDIO QUINTERO MD 02/28/231946: Final Diagnosis Give Final Diagnosis ARF with hypoxia present on admission from Saddle PE DONNA NICHOLAS Feb 28, 2023 18:08 INDIO QUINTERO MD Feb 28, 2023 19:47
[2023-02-28] MEDS: ASPIRIN E.C. 81 MG (ECOTRIN) TAB PO SCH (20:32)
[2023-02-28] MEDS: LIDOCAINE PATCH REMOVAL TP SCH (20:32)
[2023-03-01] MEDS: RT-ALBUTEROL/IPRATROPIUM 3 ML (DUONEB) VIAL INH SCH ×4 (03:43→21:04)
[2023-03-01 04:18] VITALS: BP 124/73
[2023-03-01] MEDS: ENOXAPARIN 100 MG/1 ML (LOVENOX) SYR SC SCH (04:19)
[2023-03-01] MEDS: CEFEPIME INJECTION 1,000 MG in NS (IVPB) 50 ML IV SCH ×3 (04:19→16:37)
[2023-03-01] MEDS: oxyCODONE/APAP 10/325MG (PERCOCET 10) TABLET PO PRN ×2 (04:35→19:33)
[2023-03-01 05:55] LABS: BASOPHILS % (AUTO) 0 % (0-10); EOSINOPHILS # (AUTO) 0.2 10^3/uL (0.0-0.3); EOSINOPHILS % (AUTO) 2 % (0-10); HEMATOCRIT 33 % (40-54); HEMOGLOBIN 10.6 g/dL (13.3-17.7); LYMPHOCYTES % (AUTO) 23 % (12-44); MEAN CORPUSCULAR HEMOGLOBIN 30 pg (25-34); MEAN CORPUSCULAR HGB CONC 32 g/dL (32-36); MEAN CORPUSCULAR VOLUME 95 fL (80-99); MEAN PLATELET VOLUME 9.3 fL (9.0-12.2); MONOCYTES # (AUTO) 0.8 10^3/uL (0.0-1.0); MONOCYTES % (AUTO) 9 % (0-12); NEUTROPHILS # (AUTO) 5.8 10^3/uL (1.8-7.8); NEUTROPHILS % (AUTO) 66 % (42-75); PLATELET COUNT 307 10^3/uL (130-400); WHITE BLOOD COUNT 8.8 10^3/uL (4.3-11.0)
[2023-03-01 06:20] LABS: ALBUMIN 2.3 GM/DL (3.2-4.5); BILIRUBIN,TOTAL 0.3 MG/DL (0.1-1.0); CALCIUM 8.8 MG/DL (8.5-10.1); CREATININE SERUM 0.74 MG/DL (0.60-1.30); POTASSIUM 3.8 MMOL/L (3.6-5.0); TOTAL PROTEIN 5.3 GM/DL (6.4-8.2)
[2023-03-01] MEDS: predniSONE 20 MG TAB PO SCH (06:27)
[2023-03-01] MEDS: PANTOPRAZOLE 40 MG (PROTONIX) TAB PO SCH ×2 (06:27→16:36)
[2023-03-01] MEDS: TIOTROPIUM INH 4 GM (SPIRIVA Respimat) IH SCH (07:36)
[2023-03-01] MEDS: FLUTICASONE/VILANTEROL 100 MCG 14'S (BREO) IH SCH (08:00)
[2023-03-01 08:13] VITALS: BP 159/77
--- NOTE | 2023-03-01 08:59 | Progress Note - Hospitalist ---
Subjective HPI/CC On Admission Date Seen by Provider: Mar 01, 2023 Time Seen by Provider: 11:00 Subjective/Events-last exam Much improved Less hemoptysis No pain reported Reviewed meds and labs Review of Systems General: Fatigue, Malaise Objective Exam Vital Signs Vital Signs Date Time Temp Pulse Resp B/P (MAP) Pulse Ox O2 Delivery O2 Flow Rate FiO2 03/02/23 04:18 36.6 78 18 125/66 (85) 93 Nasal Cannula 2.00 02/24/23 17:20 28 Capillary Refill : General Appearance: No Apparent Distress, WD/WN, Chronically ill Respiratory: Lungs Clear, Normal Breath Sounds Cardiovascular: Regular Rate, Rhythm Neurologic/Psychiatric: Alert, Oriented x3 Results/Procedures Lab Laboratory Tests 03/02/23 05:14 Patient resulted labs reviewed. Assessment/Plan Assessment and Plan Assess & Plan/Chief Complaint (1) Sepsis Status: Resolved Assessment & Plan: Suspected to be secondary to pneumonia, see below. Qualifiers: Qualified Codes: A41.9 - Sepsis, unspecified organism (2) Right lower lobe pneumonia Status: Acute Assessment & Plan: Failed outpatient treatment with doxycycline, worsening. Started on cefepime and vancomycin and having clinical improvement but persistent hypoxia. 02/27: improving, will titrate oxygen as tolerated, may need oxygen at discharge 02/28: Transition to PO antibiotics tomorrow Qualifiers: Qualified Codes: J18.9 - Pneumonia, unspecified organism (3) Hemoptysis Status: Acute Assessment & Plan: Given history of PE and persistent hypoxia not on anticoagulation, will check CTA chest. CTA chest positive for PE, see below. (4) Pulmonary emboli Status: Acute Assessment & Plan: No cardiovascular compromise, but persistent marked hypoxia, started on treatment dose enoxaparin, wean supplemental O2 as tolerated. 7: Continue Enoxaparin treatment, will transition to PO soon Qualifiers: Qualified Codes: I26.92 - Saddle embolus of pulmonary artery without acute cor pulmonale (5) CAD (coronary artery disease) Status: Chronic Assessment & Plan: Resume home meds (6) Phantom limb pain Status: Chronic Assessment & Plan: Resume home meds (7) History of pulmonary embolism Status: Chronic Assessment & Plan: Reports he used to be on warfarin, uncertain why discontinued. (8) Hypertension Status: Chronic (9) Hyperlipidemia Status: Chronic (10) Stovall disease Status: Chronic (11) Lung mass Status: Acute Assessment & Plan: Possible mass underlying pneumonia vs infarction. Will follow up after treatment of pneumonia and PE. (12) DVT prophylaxis Status: Acute Assessment & Plan: Enoxaparin treatment dose SONIYA JAMES DO Mar 01, 2023 08:59
[2023-03-01] MEDS: meTOprolol TARTRATE 50 MG (LOPRESSOR) TAB PO SCH ×2 (09:38→21:22)
[2023-03-01] MEDS: ALLOPURINOL 100 MG (ZYLOPRIM) TAB PO SCH (09:38)
[2023-03-01] MEDS: CLOPIDOGREL 75 MG (PLAVIX) TABLET PO SCH (09:38)
[2023-03-01] MEDS: GABAPENTIN 600 MG (NEURONTIN) TAB PO SCH ×4 (09:38→21:22)
[2023-03-01] MEDS: LIDOCAINE 4% (SALONPAS) PATCH TOP SCH (09:38)
[2023-03-01] MEDS: ISOSORBIDE MONONITRATE 30 MG (IMDUR) TAB PO SCH (09:39)
[2023-03-01] MEDS: CELECOXIB 100 MG (CeleBREX) CAP PO SCH ×2 (09:39→21:22)
[2023-03-01] MEDS: NICOTINE 21 MG (NICODERM) PATCH TD SCH (09:39)
[2023-03-01] MEDS: lisINopril 10 MG (PRINIVIL) TABLET PO SCH (09:39)
[2023-03-01] MEDS: VANCOMYCIN 1 GM/NS 250 ML IVPB IV SCH ×4 (09:40→21:22)
[2023-03-01] MEDS: SENNOSIDES 8.6 MG (SENOKOT) TAB PO SCH ×2 (09:53→21:22)
[2023-03-01] MEDS: DOCUSATE SODIUM 100 MG (COLACE) CAP PO SCH ×2 (09:53→21:22)
[2023-03-01 11:44] VITALS: BP 120/61
[2023-03-01 15:34] VITALS: BP 132/63
[2023-03-01 19:02] VITALS: BP 135/68
[2023-03-01] MEDS: APIXABAN 5 MG (ELIQUIS) TABLET PO SCH (21:22)
[2023-03-01] MEDS: ASPIRIN E.C. 81 MG (ECOTRIN) TAB PO SCH (21:22)
[2023-03-01] MEDS: LIDOCAINE PATCH REMOVAL TP SCH (21:24)
[2023-03-01 23:25] VITALS: BP 131/73
[2023-03-02] VITALS (7 sets, daily range): BP systolic 119–147; BP diastolic 66–71
[2023-03-02] MEDS: RT-ALBUTEROL/IPRATROPIUM 3 ML (DUONEB) VIAL INH SCH ×4 (02:42→19:23)
[2023-03-02] MEDS: PANTOPRAZOLE 40 MG (PROTONIX) TAB PO SCH ×2 (05:15→16:59)
[2023-03-02] MEDS: predniSONE 20 MG TAB PO SCH (05:15)
[2023-03-02 05:41] LABS: BASOPHILS % (AUTO) 0 % (0-10); EOSINOPHILS # (AUTO) 0.2 10^3/uL (0.0-0.3); EOSINOPHILS % (AUTO) 2 % (0-10); HEMATOCRIT 35 % (40-54); HEMOGLOBIN 11.2 g/dL (13.3-17.7); LYMPHOCYTES % (AUTO) 22 % (12-44); MEAN CORPUSCULAR HEMOGLOBIN 30 pg (25-34); MEAN CORPUSCULAR HGB CONC 32 g/dL (32-36); MEAN CORPUSCULAR VOLUME 94 fL (80-99); MEAN PLATELET VOLUME 9.3 fL (9.0-12.2); MONOCYTES # (AUTO) 0.7 10^3/uL (0.0-1.0); MONOCYTES % (AUTO) 8 % (0-12); NEUTROPHILS # (AUTO) 6.2 10^3/uL (1.8-7.8); NEUTROPHILS % (AUTO) 67 % (42-75); PLATELET COUNT 322 10^3/uL (130-400); WHITE BLOOD COUNT 9.2 10^3/uL (4.3-11.0)
[2023-03-02 05:59] LABS: ALBUMIN 2.4 GM/DL (3.2-4.5); BILIRUBIN,TOTAL 0.4 MG/DL (0.1-1.0); CALCIUM 8.8 MG/DL (8.5-10.1); CREATININE SERUM 0.73 MG/DL (0.60-1.30); POTASSIUM 3.1 MMOL/L (3.6-5.0); TOTAL PROTEIN 5.5 GM/DL (6.4-8.2)
--- NOTE | 2023-03-02 07:20 | Progress Note - Hospitalist ---
Subjective HPI/CC On Admission Date Seen by Provider: Mar 02, 2023 Time Seen by Provider: 11:00 Subjective/Events-last exam Patient doing a lot better Less hemoptysis Maintain on anticoagulation Getting up and around Discharge plan for Saturday Review of Systems General: Fatigue, Malaise Pulmonary: Dyspnea, Cough Objective Exam Vital Signs Vital Signs Date Time Temp Pulse Resp B/P (MAP) Pulse Ox O2 Delivery O2 Flow Rate FiO2 03/02/23 20:13 37.2 86 18 147/70 (95) 91 High Flow N/C 2.00 03/02/23 13:58 28 Capillary Refill : General Appearance: No Apparent Distress, WD/WN, Chronically ill Respiratory: Lungs Clear, Normal Breath Sounds, Decreased Breath Sounds Cardiovascular: Regular Rate, Rhythm Neurologic/Psychiatric: Alert, Oriented x3 Results/Procedures Lab Laboratory Tests 03/02/23 05:14 Patient resulted labs reviewed. Assessment/Plan Assessment and Plan Assess & Plan/Chief Complaint (1) Sepsis Status: Resolved Assessment & Plan: Suspected to be secondary to pneumonia, see below. Qualifiers: Qualified Codes: A41.9 - Sepsis, unspecified organism (2) Right lower lobe pneumonia Status: Acute Assessment & Plan: Failed outpatient treatment with doxycycline, worsening. Sta rted on cefepime and vancomycin and having clinical improvement but persistent hypoxia. 7: improving, will titrate oxygen as tolerated, may need oxygen at discharge 02/28: Transition to PO antibiotics tomorrow Qualifiers: Qualified Codes: J18.9 - Pneumonia, unspecified organism (3) Hemoptysis Status: Acute Assessment & Plan: Given history of PE and persistent hypoxia not on anticoagulation, will check CTA chest. CTA chest positive for PE, see below. (4) Pulmonary emboli Status: Acute Assessment & Plan: No cardiovascular compromise, but persistent marked hypoxia, started on treatment dose enoxaparin, wean supplemental O2 as tolerated. 7: Continue Enoxaparin treatment, will transition to PO soon Qualifiers: Qualified Codes: I26.92 - Saddle embolus of pulmonary artery without acute cor pulmonale (5) CAD (coronary artery disease) Status: Chronic Assessment & Plan: Resume home meds (6) Phantom limb pain Status: Chronic Assessment & Plan: Resume home meds (7) History of pulmonary embolism Status: Chronic Assessment & Plan: Reports he used to be on warfarin, uncertain why discontinued. (8) Hypertension Status: Chronic (9) Hyperlipidemia Status: Chronic (10) Stovall disease Status: Chronic (11) Lung mass Status: Acute Assessment & Plan: Possible mass underlying pneumonia vs infarction. Will follow up after treatment of pneumonia and PE. (12) DVT prophylaxis Status: Acute Assessment & Plan: Enoxaparin treatment dose SONIYA JAMES DO Mar 02, 2023 07:20
[2023-03-02] MEDS ORDERED: KCL 20 MEQ TAB (K-DUR) PO ONE (07:30)
[2023-03-02] MEDS: ALLOPURINOL 100 MG (ZYLOPRIM) TAB PO SCH (08:03)
[2023-03-02] MEDS: CELECOXIB 100 MG (CeleBREX) CAP PO SCH ×2 (08:04→20:36)
[2023-03-02] MEDS: LIDOCAINE 4% (SALONPAS) PATCH TOP SCH (08:04)
[2023-03-02] MEDS: GABAPENTIN 600 MG (NEURONTIN) TAB PO SCH ×4 (08:04→20:36)
[2023-03-02] MEDS: lisINopril 10 MG (PRINIVIL) TABLET PO SCH (08:04)
[2023-03-02] MEDS: APIXABAN 5 MG (ELIQUIS) TABLET PO SCH ×2 (08:04→20:36)
[2023-03-02] MEDS: meTOprolol TARTRATE 50 MG (LOPRESSOR) TAB PO SCH ×2 (08:04→20:36)
[2023-03-02] MEDS: NICOTINE 21 MG (NICODERM) PATCH TD SCH (08:04)
[2023-03-02] MEDS: ISOSORBIDE MONONITRATE 30 MG (IMDUR) TAB PO SCH (08:04)
[2023-03-02] MEDS: CLOPIDOGREL 75 MG (PLAVIX) TABLET PO SCH (08:04)
[2023-03-02] MEDS: VANCOMYCIN 1 GM/NS 250 ML IVPB IV SCH ×4 (08:04→20:37)
[2023-03-02] MEDS: TIOTROPIUM INH 4 GM (SPIRIVA Respimat) IH SCH (08:48)
[2023-03-02] MEDS: FLUTICASONE/VILANTEROL 100 MCG 14'S (BREO) IH SCH (09:07)
[2023-03-02] MEDS: SENNOSIDES 8.6 MG (SENOKOT) TAB PO SCH ×2 (11:06→20:38)
[2023-03-02] MEDS: DOCUSATE SODIUM 100 MG (COLACE) CAP PO SCH ×2 (11:06→20:38)
[2023-03-02] MEDS: oxyCODONE/APAP 10/325MG (PERCOCET 10) TABLET PO PRN (20:36)
[2023-03-02] MEDS: ASPIRIN E.C. 81 MG (ECOTRIN) TAB PO SCH (20:36)
[2023-03-02] MEDS: LIDOCAINE PATCH REMOVAL TP SCH (20:38)
[2023-03-03] MEDS: RT-ALBUTEROL/IPRATROPIUM 3 ML (DUONEB) VIAL INH SCH ×4 (02:56→21:33)
[2023-03-03 04:00] VITALS: BP 130/70
[2023-03-03 05:33] LABS: BASOPHILS % (AUTO) 0 % (0-10); EOSINOPHILS # (AUTO) 0.2 10^3/uL (0.0-0.3); EOSINOPHILS % (AUTO) 2 % (0-10); HEMATOCRIT 33 % (40-54); HEMOGLOBIN 10.7 g/dL (13.3-17.7); LYMPHOCYTES % (AUTO) 19 % (12-44); MEAN CORPUSCULAR HEMOGLOBIN 30 pg (25-34); MEAN CORPUSCULAR HGB CONC 32 g/dL (32-36); MEAN CORPUSCULAR VOLUME 93 fL (80-99); MEAN PLATELET VOLUME 9.6 fL (9.0-12.2); MONOCYTES # (AUTO) 0.8 10^3/uL (0.0-1.0); MONOCYTES % (AUTO) 8 % (0-12); NEUTROPHILS # (AUTO) 7.5 10^3/uL (1.8-7.8); NEUTROPHILS % (AUTO) 71 % (42-75); PLATELET COUNT 366 10^3/uL (130-400); WHITE BLOOD COUNT 10.6 10^3/uL (4.3-11.0)
[2023-03-03] MEDS: PANTOPRAZOLE 40 MG (PROTONIX) TAB PO SCH ×2 (05:42→17:05)
[2023-03-03 05:49] LABS: ALBUMIN 2.4 GM/DL (3.2-4.5); BILIRUBIN,TOTAL 0.4 MG/DL (0.1-1.0); CALCIUM 8.6 MG/DL (8.5-10.1); CREATININE SERUM 0.69 MG/DL (0.60-1.30); POTASSIUM 3.2 MMOL/L (3.6-5.0); TOTAL PROTEIN 5.4 GM/DL (6.4-8.2)
[2023-03-03] MEDS ORDERED: KCL 20 MEQ TAB (K-DUR) PO SCH ×2 (07:00→08:00)
--- NOTE | 2023-03-03 07:17 | Progress Note - Hospitalist ---
Subjective HPI/CC On Admission Date Seen by Provider: Mar 03, 2023 Time Seen by Provider: 11:00 Subjective/Events-last exam Patient reported chest pain with cough on the right side Troponin negative BNP minimally elevated Chest x-ray shows infiltrate of the right where the presumptive lung masses We will need to arrange close follow-up with repeat imaging at discharge Review of Systems General: Malaise Pulmonary: Dyspnea, Cough Objective Exam Vital Signs Vital Signs Date Time Temp Pulse Resp B/P (MAP) Pulse Ox O2 Delivery O2 Flow Rate FiO2 03/03/23 16:14 37.4 92 18 131/64 (86) 91 High Flow N/C 3.00 03/02/23 13:58 28 Capillary Refill : General Appearance: No Apparent Distress, WD/WN, Chronically ill Respiratory: Lungs Clear, Decreased Breath Sounds Cardiovascular: Regular Rate, Rhythm Neurologic/Psychiatric: Alert, Oriented x3, No Motor/Sensory Deficits, Normal Mood/Affect Results/Procedures Lab Laboratory Tests 03/03/23 05:15 Patient resulted labs reviewed. Assessment/Plan Assessment and Plan Assess & Plan/Chief Complaint (1) Sepsis Status: Resolved Assessment & Plan: Suspected to be secondary to pneumonia, see below. Qualifiers: Qualified Codes: A41.9 - Sepsis, unspecified organism (2) Right lower lobe pneumonia Status: Acute Assessment & Plan: Failed outpatient treatment with doxycycline, worsening. Started on cefepime and vancomycin and having clinical improvement but persistent hypoxia. 02/27: improving, will titrate oxygen as tolerated, may need oxygen at discharge 02/28: Transition to PO antibiotics tomorrow Qualifiers: Qualified Codes: J18.9 - Pneumonia, unspecified organism (3) Hemoptysis Status: Acute Assessment & Plan: Given history of PE and persistent hypoxia not on anticoagulation, will check CTA chest. CTA chest positive for PE, see below. (4) Pulmonary emboli Status: Acute Assessment & Plan: No cardiovascular compromise, but persistent marked hypoxia, started on treatment dose enoxaparin, wean supplemental O2 as tolerated. 7: Continue Enoxaparin treatment, will transition to PO soon Qualifiers: Qualified Codes: I26.92 - Saddle embolus of pulmonary artery without acute cor pulmonale (5) CAD (coronary artery disease) Status: Chronic Assessment & Plan: Resume home meds (6) Phantom limb pain Status: Chronic Assessment & Plan: Resume home meds (7) History of pulmonary embolism Status: Chronic Assessment & Plan: Reports he used to be on warfarin, uncertain why discontinued. (8) Hypertension Status: Chronic (9) Hyperlipidemia Status: Chronic (10) Stovall disease Status: Chronic (11) Lung mass Status: Acute Assessment & Plan: Possible mass underlying pneumonia vs infarction. Will follow up after treatment of pneumonia and PE. (12) DVT prophylaxis Status: Acute Assessment & Plan: Enoxaparin treatment dose SONIYA JAMES DO Mar 03, 2023 07:17
[2023-03-03 07:49] VITALS: BP 144/74
[2023-03-03] MEDS: NICOTINE 21 MG (NICODERM) PATCH TD SCH (08:45)
[2023-03-03] MEDS: APIXABAN 5 MG (ELIQUIS) TABLET PO SCH ×2 (08:45→20:16)
[2023-03-03] MEDS: CELECOXIB 100 MG (CeleBREX) CAP PO SCH ×2 (08:45→20:16)
[2023-03-03] MEDS: ISOSORBIDE MONONITRATE 30 MG (IMDUR) TAB PO SCH (08:45)
[2023-03-03] MEDS: ALLOPURINOL 100 MG (ZYLOPRIM) TAB PO SCH (08:45)
[2023-03-03] MEDS: lisINopril 10 MG (PRINIVIL) TABLET PO SCH (08:46)
[2023-03-03] MEDS: DOCUSATE SODIUM 100 MG (COLACE) CAP PO SCH ×2 (08:46→19:24)
[2023-03-03] MEDS: GABAPENTIN 600 MG (NEURONTIN) TAB PO SCH ×4 (08:46→20:16)
[2023-03-03] MEDS: CLOPIDOGREL 75 MG (PLAVIX) TABLET PO SCH (08:46)
[2023-03-03] MEDS: FLUTICASONE/VILANTEROL 100 MCG 14'S (BREO) IH SCH (08:46)
[2023-03-03] MEDS: meTOprolol TARTRATE 50 MG (LOPRESSOR) TAB PO SCH ×2 (08:46→20:16)
[2023-03-03] MEDS: SENNOSIDES 8.6 MG (SENOKOT) TAB PO SCH ×2 (08:46→19:24)
[2023-03-03] MEDS: LIDOCAINE 4% (SALONPAS) PATCH TOP SCH (08:47)
[2023-03-03] MEDS: TIOTROPIUM INH 4 GM (SPIRIVA Respimat) IH SCH (08:47)
--- NOTE | 2023-03-03 10:21 | Diagnostic Imaging Report ---
EXAM: CHEST 1 VIEW, AP/PA ONLY INDICATION: Dyspnea. COMPARISON: 02/24/2023. FINDINGS: Increasing airspace opacities throughout the right lung, greatest in the right lung base. Small right pleural effusion. No pneumothorax. Normal heart size and central pulmonary vascularity. IMPRESSION: Increasing airspace opacities on the right, greatest in the right lung base. Small right pleural effusion. Dictated by: Dictated on workstation # [id number]
[2023-03-03 11:30] VITALS: BP 132/63
[2023-03-03] MEDS: KCL 10 MEQ TAB (MICRO K) PO SCH ×2 (13:35→17:05)
[2023-03-03 16:14] VITALS: BP 131/64
[2023-03-03 19:16] VITALS: BP 129/71
[2023-03-03] MEDS: oxyCODONE/APAP 10/325MG (PERCOCET 10) TABLET PO PRN (19:30)
[2023-03-03] MEDS: ASPIRIN E.C. 81 MG (ECOTRIN) TAB PO SCH (20:16)
[2023-03-03] MEDS: LIDOCAINE PATCH REMOVAL TP SCH (20:17)
[2023-03-03 23:42] VITALS: BP 109/66
[2023-03-04] MEDS: RT-ALBUTEROL/IPRATROPIUM 3 ML (DUONEB) VIAL INH SCH ×2 (02:37→07:25)
[2023-03-04 04:16] VITALS: BP 105/65
[2023-03-04] MEDS: RT-ALBUTEROL/IPRATROPIUM 3 ML (DUONEB) VIAL INH PRN (04:44)
[2023-03-04] MEDS: oxyCODONE/APAP 10/325MG (PERCOCET 10) TABLET PO PRN ×2 (04:46→09:01)
[2023-03-04] MEDS: PANTOPRAZOLE 40 MG (PROTONIX) TAB PO SCH (05:23)
[2023-03-04 05:55] LABS: BASOPHILS % (AUTO) 0 % (0-10); EOSINOPHILS # (AUTO) 0.2 10^3/uL (0.0-0.3); EOSINOPHILS % (AUTO) 1 % (0-10); HEMATOCRIT 33 % (40-54); HEMOGLOBIN 10.8 g/dL (13.3-17.7); LYMPHOCYTES # (AUTO) 1.3 10^3/uL (1.0-4.0); LYMPHOCYTES % (AUTO) 11 % (12-44); MEAN CORPUSCULAR HEMOGLOBIN 30 pg (25-34); MEAN CORPUSCULAR HGB CONC 33 g/dL (32-36); MEAN CORPUSCULAR VOLUME 93 fL (80-99); MEAN PLATELET VOLUME 9.3 fL (9.0-12.2); MONOCYTES # (AUTO) 0.9 10^3/uL (0.0-1.0); MONOCYTES % (AUTO) 8 % (0-12); NEUTROPHILS # (AUTO) 9.1 10^3/uL (1.8-7.8); NEUTROPHILS % (AUTO) 78 % (42-75); PLATELET COUNT 313 10^3/uL (130-400); WHITE BLOOD COUNT 11.6 10^3/uL (4.3-11.0)
[2023-03-04 06:14] LABS: ALBUMIN 2.4 GM/DL (3.2-4.5); BILIRUBIN,TOTAL 0.6 MG/DL (0.1-1.0); CALCIUM 8.7 MG/DL (8.5-10.1); CREATININE SERUM 0.76 MG/DL (0.60-1.30); POTASSIUM 3.2 MMOL/L (3.6-5.0); TOTAL PROTEIN 5.6 GM/DL (6.4-8.2)
[2023-03-04] MEDS: TIOTROPIUM INH 4 GM (SPIRIVA Respimat) IH SCH (07:25)
[2023-03-04 07:57] VITALS: BP 131/60
[2023-03-04] MEDS: KCL 10 MEQ TAB (MICRO K) PO SCH ×2 (08:39→12:16)
[2023-03-04] MEDS: CELECOXIB 100 MG (CeleBREX) CAP PO SCH (08:40)
[2023-03-04] MEDS: GABAPENTIN 600 MG (NEURONTIN) TAB PO SCH ×2 (08:40→12:16)
[2023-03-04] MEDS: APIXABAN 5 MG (ELIQUIS) TABLET PO SCH (08:40)
[2023-03-04] MEDS: CLOPIDOGREL 75 MG (PLAVIX) TABLET PO SCH (08:40)
[2023-03-04] MEDS: ISOSORBIDE MONONITRATE 30 MG (IMDUR) TAB PO SCH (08:40)
[2023-03-04] MEDS: lisINopril 10 MG (PRINIVIL) TABLET PO SCH (08:41)
[2023-03-04] MEDS: NICOTINE 21 MG (NICODERM) PATCH TD SCH (08:41)
[2023-03-04] MEDS: LIDOCAINE 4% (SALONPAS) PATCH TOP SCH (08:41)
[2023-03-04] MEDS: ALLOPURINOL 100 MG (ZYLOPRIM) TAB PO SCH (08:41)
[2023-03-04] MEDS: meTOprolol TARTRATE 50 MG (LOPRESSOR) TAB PO SCH (08:41)
[2023-03-04] MEDS: SENNOSIDES 8.6 MG (SENOKOT) TAB PO SCH (09:01)
[2023-03-04] MEDS: DOCUSATE SODIUM 100 MG (COLACE) CAP PO SCH (09:02)
[2023-03-04] MEDS ORDERED: APIX5TAB PO (11:06)
[2023-03-04] MEDS ORDERED: NICO1PAT34 TD (11:06)
[2023-03-04] MEDS ORDERED: CEFD300C3 PO (11:06)
[2023-03-04 11:39] VITALS: BP 120/64
--- NOTE | 2023-03-04 12:30 | Discharge Summary ---
Discharge Summary Hospital Course Was the Problem List Reviewed?: Yes Problems/Dx: (1) Pulmonary emboli Status: Acute Qualifiers: Qualified Codes: I26.92 - Saddle embolus of pulmonary artery without acute cor pulmonale (2) Stovall disease Status: Chronic (3) Lung mass Status: Acute (4) CAD (coronary artery disease) Status: Chronic (5) Right lower lobe pneumonia Status: Acute Qualifiers: Qualified Codes: J18.9 - Pneumonia, unspecified organism (6) DVT prophylaxis Status: Acute Hospital Course Date of Admission: Feb 25, 2023 at 11:52 Admission Diagnosis : Family Physician/Provider: [facility] [place] Date of Discharge: 03/04/23 Discharge Diagnosis: [ ] Hospital Course: Patient had an uneventful but lengthy hospital course after he was admitted for right lower lobe pneumonia and exacerbation of COPD with hypoxia found to have pulmonary embolism. Patient was placed on anticoagulation he did continue to have hemoptysis which was resolved at time of discharge. Antibiotics will be completed with oral Omnicef and he will have close follow-up with his primary care provider to evaluate right lower lobe mass which is either neoplastic or pneumonia. Labs and Pending Lab Test: Laboratory Tests 03/04/23 05:38: White Blood Count 11.6H, Red Blood Count 3.57L, Hemoglobin 10.8L, Hematocrit 33L , Mean Corpuscular Volume 93, Mean Corpuscular Hemoglobin 30, Mean Corpuscular Hemoglobin Concent 33, Red Cell Distribution Width 16.5H, Platelet Count 313, Mean Platelet Volume 9.3, Immature Granulocyte % (Auto) 1, Neutrophils (%) (Auto) 78H, Lymphocytes (%) (Auto) 11L, Monocytes (%) (Auto) 8, Eosinophils (%) (Auto) 1, Basophils (%) (Auto) 0, Neutrophils # (Auto) 9.1H, Lymphocytes # (Auto) 1.3, Monocytes # (Auto) 0.9, Eosinophils # (Auto) 0.2, Basophils # (Auto) 0.0, Immature Granulocyte # (Auto) 0.1, Sodium Level 136, Potassium Level 3.2L, Chloride Level 96L, Carbon Dioxide Level 32, Anion Gap 8, Blood Urea Nitrogen 4L , Creatinine 0.76, Estimat Glomerular Filtration Rate 110, BUN/Creatinine Ratio 5, Glucose Level 146H, Calcium Level 8.7, Corrected Calcium 10.0, Total Bilirubin 0.6, Aspartate Amino Transf (AST/SGOT) 12, Alanine Aminotransferase (ALT/SGPT) 9, Alkaline Phosphatase 61, Total Protein 5.6L, Albumin 2.4L Microbiology 02/24/23 Blood Culture - Final, Complete No growth Home Meds Active Cefdinir 300 Mg Capsule 300 Mg PO BID Eliquis (Apixaban) 5 Mg Tablet 5 Mg PO BID Nicoderm Cq (Nicotine) 21 Mg/24 Hour Patch.td24 21 Mg TD DAILY Reported Docusate Sodium 100 Mg Tablet 100 Mg PO DAILY PRN Ventolin Hfa (Albuterol Sulfate) 90 Mcg Hfa.aer.ad 1 Puff PO Q6H PRN 1 PUFF = 90 MCG Albuterol Sulfate 2.5 Mg/3 Ml (0.083 %) Vial.neb 1 Vial PO BID Atorvastatin Calcium 20 Mg Tablet 20 Mg PO HS Lidocaine 5% Patch (Lidocaine) Unknown Strength Adh..patch Unknown Dose TP Q12H MDD 2 2 patches max for 12 hours, then 12 hours patch-free period. PUTS 1 PATCH ON HIS SIDE AND 1 PATCH ON HIS LEG Lisinopril 10 Mg Tablet 10 Mg PO DAILY Oxycodone-Acetaminophen 10-325 (Oxycodone HCl/Acetaminophen) 10 Mg-325 Mg Tablet 1 Tab PO Q4H PRN Gabapentin 600 Mg Tablet 600 Mg PO QID Breztri Aerosphere Inhaler (Budesonide/Glycopyr/Formoterol) 160 Mcg-9 Mcg-4.8 Mcg/Actuation Hfa.aer.ad 1 Inhaler IDT BID Celecoxib 200 Mg Capsule 200 Mg PO BID Protonix (Pantoprazole Sodium) 40 Mg Tablet.dr 40 Mg PO BID Metoprolol Tartrate 50 Mg Tablet 50 Mg PO BID Plavix (Clopidogrel Bisulfate) 75 Mg Tablet 75 Mg PO DAILY Aspirin EC (Aspirin) 81 Mg Tablet.dr 81 Mg PO HS Isosorbide Mononitrate ER (Isosorbide Mononitrate) 30 Mg Tab.er.24h 30 Mg PO DAILY Allopurinol 100 Mg Tablet 200 Mg PO DAILY TAKES 2 (100MG) TABS Assessment/Pt Instructions PCP in 1 week Discharge Planning: <30 minutes discharge planning Discharge Physical Examination Vital Signs Vital Signs Date Time Temp Pulse Resp B/P (MAP) Pulse Ox O2 Delivery O2 Flow Rate FiO2 03/04/23 11:39 37.0 86 18 120/64 (82) 96 High Flow N/C 6.00 03/02/23 13:58 28 General Appearance: No Apparent Distress, WD/WN, Chronically ill Allergies: Coded Allergies: Penicillins (Unverified Allergy, Mild, 01/27/09) pneumococcal vaccine (Verified Allergy, Unknown, 12/04/19) Discharge Summary Date of Admission Feb 25, 2023 at 11:52 Date of Discharge Discharge Date: Mar 04, 2023 Discharge Diagnosis (1) Sepsis Status: Resolved Assessment & Plan: Suspected to be secondary to pneumonia, see below. Qualifiers: Qualified Codes: A41.9 - Sepsis, unspecified organism (2) Right lower lobe pneumonia Status: Acute Assessment & Plan: Failed outpatient treatment with doxycycline, worsening. Started on cefepime and vancomycin and having clinical improvement but persistent hypoxia. 02/27: improving, will titrate oxygen as tolerated, may need oxygen at discharge 02/28: Transition to PO antibiotics tomorrow Qualifiers: Qualified Codes: J18.9 - Pneumonia, unspecified organism (3) Hemoptysis Status: Acute Assessment & Plan: Given history of PE and persistent hypoxia not on anticoagulation, will check CTA chest. CTA chest positive for PE, see below. (4) Pulmonary emboli Status: Acute Assessment & Plan: No cardiovascular compromise, but persistent marked hypoxia, started on treatment dose enoxaparin, wean supplemental O2 as tolerated. 02/27: Continue Enoxaparin treatment, will transition to PO soon Qualifiers: Qualified Codes: I26.92 - Saddle embolus of pulmonary artery without acute cor pulmonale (5) CAD (coronary artery disease) Status: Chronic Assessment & Plan: Resume home meds (6) Phantom limb pain Status: Chronic Assessment & Plan: Resume home meds (7) History of pulmonary embolism Status: Chronic Assessment & Plan: Reports he used to be on warfarin, uncertain why discontinued. (8) Hypertension Status: Chronic (9) Hyperlipidemia Status: Chronic (10) Stovall disease Status: Chronic (11) Lung mass Status: Acute Assessment & Plan: Possible mass underlying pneumonia vs infarction. Will follow up after treatment of pneumonia and PE. (12) DVT prophylaxis Status: Acute Assessment & Plan: Enoxaparin treatment dose SONIYA JAMES DO Mar 04, 2023 12:30
== END 2023-03-04 13:00 | disposition home or self-care (01) | DRG 871 ==
LOC: EDUNIT# 14:08 → ER 14:11 → 4TH 16:17 → OBSVTOIN 02-25 11:52
PROVIDERS: ADMIT Internal Medicine; ATTEND Family Medicine
PROC: 5A0935A Assistance with Respiratory Ventilation, Less than 24 Consecutive Hours, High Flow/Velocity Cannula (ICD-10-PCS; principal; 2023-02-25)
DX: A41.9 Sepsis, unspecified organism (principal); I26.92 Saddle embolus of pulmonary artery without acute cor pulmonale; J18.9 Pneumonia, unspecified organism; J96.01 Acute respiratory failure with hypoxia; N02.8 Recurrent and persistent hematuria with other morphologic changes; J44.1 Chronic obstructive pulmonary disease with (acute) exacerbation; J44.0 Chronic obstructive pulmonary disease with (acute) lower respiratory infection; R91.8 Other nonspecific abnormal finding of lung field; I25.10 Atherosclerotic heart disease of native coronary artery without angina pectoris; Z79.82 Long term (current) use of aspirin; Z79.899 Other long term (current) drug therapy; F17.210 Nicotine dependence, cigarettes, uncomplicated; Z89.612 Acquired absence of left leg above knee; Z95.5 Presence of coronary angioplasty implant and graft; M10.9 Gout, unspecified; I50.9 Heart failure, unspecified; Z99.81 Dependence on supplemental oxygen; Z86.718 Personal history of other venous thrombosis and embolism; I25.2 Old myocardial infarction; E78.00 Pure hypercholesterolemia, unspecified; K21.9 Gastro-esophageal reflux disease without esophagitis; G89.29 Other chronic pain; M54.9 Dorsalgia, unspecified; E66.9 Obesity, unspecified; I11.0 Hypertensive heart disease with heart failure; Z68.33 Body mass index [BMI] 33.0-33.9, adult
CPT/HCPCS: 36415; 71045; 71275; 80053; 80202; 83605; 83880; 84484; 85007; 85025; 85027; 85610; 85730; 87040; 93005; 94640; 94760; 94761; G0378

== ENCOUNTER 2023-03-07 08:00 | Emergency (ER) | payer MEDICARE, MEDICAID ==
[~2023-03-07] VITALS: Ht 162.5 cm; Wt 89.9 kg
[~2023-03-07 08:00] MED LIST changes: +ALBU2.5V4 PO; +ALBU8.5H6 PO; +APIX5TAB PO; +ATOR20TA66 PO; +BUDE10.7 IDT; +CEFD300C3 PO; +DOCU100T2 PO; +LIDO700A45 TP; +LISI10TA25 PO; +NICO1PAT34 TD; +OXYC-556 PO
--- NOTE | 2023-03-07 08:29 | ED Respiratory ---
General Chief Complaint: Respiratory Problems Stated Complaint: CHEST CONGESTION | COUGH | Nursing Triage Note: PT ARRIVED POV WITH CC OF SOB, CONGESTION, AND COUGHING UP BLOOD. PT WAS ADMITTED ON Feb AND DISCHARGED ON THE FOR PNEUMONIA AND BLOOD CLOTS. Source: patient Exam Limitations: no limitations History of Present Illness Date Seen by Provider: Mar 07, 2023 Time Seen by Provider: 08:15 Initial Comments Hoang is a 52 yo male who presents to the ER with a concern for increased SOB and some hemoptysis in the last day. Recent week long admission for pneumonia, PE and lung mass found in the RLL. DIscharged on blood thinners and about to finish his last day of out patient antibiotics tomorrow. He became a little more short of breath with cough this morning and states "I just got scared". His symptoms are currently 100% resolved. He is on his normal level of oxygen per nasal canula. Has no increased pain. No recent fevers. Tolerating a fairly normal appetite. Taking his medications as prescribed. He states he has not been taking anything for the cough or congestion because he did not know that he could. We talked about over the counter cough medications that would be safe for him. Timing/Duration: just prior to arrival Severity: mild Prior Episodes/Possible Cause: frequent episodes Modifying Factors: Improves With Albuterol Inhaler Associated Symptoms: cough, nasal congestion, shortness of breath, wheezing Allergies and Home Medications Allergies Coded Allergies: Penicillins (Unverified Allergy, Mild, 01/27/09) pneumococcal vaccine (Verified Allergy, Unknown, 12/04/19) Patient Home Medication List Home Medication List Reviewed: Yes Albuterol Sulfate (Albuterol Sulfate) 2.5 Mg/3 Ml (0.083 %) Vial.neb, 1 VIAL PO BID, (Reported) Entered as Reported by: SILVINO BROWN on 02/25/23 1350 Albuterol Sulfate (Ventolin Hfa) 90 Mcg Hfa.aer.ad, 1 PUFF PO Q6H PRN for SHORTNESS OF BREATH, (Reported) Entered as Reported by: SILVINO BROWN on 02/25/23 1350 Allopurinol (Allopurinol) 100 Mg Tablet, 200 MG PO DAILY, (Reported) Entered as Reported by: NIRAV SORIANO on 07/12/18 0845 Apixaban (Eliquis) 5 Mg Tablet, 5 MG PO BID Prescribed by: SONIYA JAMES on 03/04/23 1106 Aspirin (Aspirin EC) 81 Mg Tablet.dr, 81 MG PO HS, (Reported) Entered as Reported by: FELIBERTO CONNOR on 09/26/18 1028 Atorvastatin Calcium (Atorvastatin Calcium) 20 Mg Tablet, 20 MG PO HS, (Reported) Entered as Reported by: SILVINO BROWN on 02/25/23 1348 Budesonide/Glycopyr/Formoterol (Breztri Aerosphere Inhaler) 160 Mcg-9 Mcg-4.8 Mcg/Actuation Hfa.aer.ad, 1 INHALER IDT BID, (Reported) Entered as Reported by: NINA GERARD on 02/24/23 1641 Cefdinir (Cefdinir) 300 Mg Capsule, 300 MG PO BID Prescribed by: SONIYA JAMES on 03/04/23 1106 Cefdinir (Cefdinir) 300 Mg Capsule, 300 MG PO BID Prescribed by: SAMARA WOO on 03/07/23 1041 Celecoxib (Celecoxib) 200 Mg Capsule, 200 MG PO BID, (Reported) Entered as Reported by: SARAH LILLY on 12/30/22 1917 Clopidogrel Bisulfate (Plavix) 75 Mg Tablet, 75 MG PO DAILY, (Reported) Entered as Reported by: FELIBERTO CONNOR on 09/26/18 1040 Docusate Sodium (Docusate Sodium) 100 Mg Tablet, 100 MG PO DAILY PRN for CONSTIPATION-1ST LINE, (Reported) Entered as Reported by: SILVINO BROWN on 02/25/23 1350 Gabapentin (Gabapentin) 600 Mg Tablet, 600 MG PO QID, (Reported) Entered as Reported by: NINA GERARD on 02/24/23 1641 Isosorbide Mononitrate (Isosorbide Mononitrate ER) 30 Mg Tab.er.24h, 30 MG PO DAILY, (Reported) Entered as Reported by: NIRAV SORIANO on 07/12/18 0845 Lidocaine (Lidocaine 5% Patch) Unknown Strength Adh..patch, Unknown Dose TP Q12H, (Reported) Entered as Reported by: NINA GERARD on 02/24/23 1659 Lisinopril (Lisinopril) 10 Mg Tablet, 10 MG PO DAILY, (Reported) Entered as Reported by: NINA GERARD on 02/24/23 1641 Metoprolol Tartrate (Metoprolol Tartrate) 50 Mg Tablet, 50 MG PO BID, (Reported) Entered as Reported by: FELIBERTO CONNOR on 06/15/19 1023 Nicotine (Nicoderm Cq) 21 Mg/24 Hour Patch.td24, 21 MG TD DAILY Prescribed by: SONIYA JAMES on 03/04/23 1106 Oxycodone HCl/Acetaminophen (Oxycodone-Acetaminophen 10-325) 10 Mg-325 Mg Tablet, 1 TAB PO Q4H PRN for PAIN, (Reported) Entered as Reported by: NINA GERARD on 02/24/23 1641 Pantoprazole Sodium (Protonix) 40 Mg Tablet.dr, 40 MG PO BID, (Reported) Entered as Reported by: TERESA CORREA on 12/04/19 0850 Review of Systems Review of Systems Constitutional: see HPI EENTM: nose congestion Respiratory: cough, hemoptysis, phlegm, short of breath Cardiovascular: no symptoms reported Gastrointestinal: no symptoms reported Genitourinary: no symptoms reported Musculoskeletal: no symptoms reported Skin: no symptoms reported Psychiatric/Neurological: Anxiety All Other Systems Reviewed Negative Unless Noted: Yes Past Dbrtvki-Cmlrpv-Gffpvb Hx Patient Social History Tobacco Use?: No Substance use?: No Alcohol Use?: No Immunizations Up To Date PED Vaccines UTD: Yes First/Initial COVID19 Vaccinat: X3 Second COVID19 Vaccination Esteban: X3 Third COVID19 Vaccination Date: X3 Seasonal Allergies Seasonal Allergies: No Past Medical History Surgery/Hospitalization HX: LEFT ABOVE KNEE AMPUTATION, HEART CATH X5 WITH STENTS HTN, HLD, GOUT, COPD, CHF Surgeries: Yes (LEFT AKA) Amputation, Cardiac, Coronary Stent, Orthopedic Respiratory: Yes (O2 DEPENDENT) Pulmonary Embolism, COPD Currently Using CPAP: No Currently Using BIPAP: No Cardiac: Yes ([place] X 2; STENTS X 4; -NSTEMI 07/11/17 WITH 1 STENT PLACED) Coronary Artery Disease, Deep Vein Thrombosis, Heart Attack, High Cholesterol, Hypertension Neurological: No Reproductive Disorders: No Genitourinary: No Gastrointestinal: Yes Gastroesophageal Reflux Musculoskeletal: Yes (OXYCODONE, GABAPENTIN + IBUPROFEN DAILY;CHRONIC BACK/L LEG PHANTOM PAIN) Amputee, Chronic Back Pain, Gout Endocrine: No (OBESITY) HEENT: No Cancer: No Psychosocial: No Integumentary: No Blood Disorders: Yes (PROTEIN S DEFICIENCY--DVT'S AND P.E.'S AND [place] X 2) Family Medical History Arthritis G8 BROTHER Blood clots 19 MOTHER ( of blood clot) Cardiac disorder 19 FATHER Diabetes mellitus G8 BROTHER FH: cancer paternal grandmother FHx: inflammatory bowel disease G8 BROTHER No Family History of: FH: sudden cardiac (SCD) Heart Disease, Vascular Disease Physical Exam Vital Signs - First Documented Capillary Refill : Height: 5'4.00" Weight: 190lbs. 1.6oz. 86.602402ht; 34.00 BMI Method:Stated General Appearance: WD/WN, no apparent distress, obese Eyes: Bilateral Eye Normal Inspection, Bilateral Eye PERRL, Bilateral Eye EOMI HEENT: PERRL/EOMI Respiratory: no respiratory distress, no accessory muscle use, wheezing (scattered expiratory wheezes R>L) Cardiovascular: regular rate, rhythm Extremities: normal inspection (s/p left AKA) Neurologic/Psychiatric: alert, normal mood/affect, oriented x 3 Skin: normal color, warm/dry, other (ecchymoses/petechial rash to ant abdominal wall (prior heparin injections)) Progress/Results/Core Measures Suspected Sepsis SIRS Temperature: Pulse: 94 Respiratory Rate: Blood Pressure 109 /71 Mean: 84 Results/Orders My Orders Orders - SAMARA WOO MD Chest 1 View, Ap/Pa Only (03/07/23 08:12) Vital Signs/I&O 03/07/23 03/07/23 03/07/23 03/07/23 08:05 08:05 08:05 11:21 Pulse 94 85 B/P (MAP) 109/71 (84) 107/66 Pulse Ox 90 95 O2 Delivery Nasal Cannula Nasal Cannula Nasal Cannula Nasal Cannula O2 Flow Rate 6.00 6.00 6.00 6.00 Capillary Refill : Blood Pressure Mean: 84 Progress Note : Time: 10:20 Progress Note Patient seen and examined by me. Evaluation today includes review of recent hospitalization, physical exam and CXR. Pertinent physical exam findings - WDWN obese male in NAD. VSS. Appears adequately hydrated. Occ ronchi Rt lung. Left is clear. No increased work of breathing or resp distress. DDx based on H&P includes mucous plugging, COPD exacerbation. CXR independently reviewed and interpreted by me. He seems to have worsening consolidation on CXR right lung. He clinically looks very well and is completely asymptomatic. 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 I discussed case and presentation today with Dr James who was his admitting provider throughout his hospital stay. She was agreeable that a rational course of action would be to lengthen out his antibiotic coverage. She anticipates a very complicated course for him with respect to PE and mass. His states that he ahs close follow up arranged with [facility]. They have pending appointments already scheduled. Hoang feels much better now - with no complaints. I advised them of Dr James's recs and they are happy with that plan of care. I gave them strict return precautions and they verbalize understanding. No clinical indications for repeat lab work at this time. Diagnostic Imaging Diagonstic Imaging: Xray Plain Films/CT/US/NM/MRI: chest Comments [facility]. [place], [place] NAME: HOANG ALVARADO [facility] REC#: [id number] PT STATUS: REG ER : 1970 PHYSICIAN: SAMARA WOO MD ADMIT DATE: 03/07/23/ER Draft Date of Exam:03/07/23 CHEST 1 VIEW, AP/PA ONLY INDICATION: Dyspnea and hemoptysis. Single AP view of chest is obtained with comparison made study of 03/03/2023 FINDINGS: There has been further increase in opacification of the lower half of right lung with mild left perihilar atelectasis and/or pneumonitis. No pneumothorax is seen. Left costophrenic sulcus appears sharp. IMPRESSION: Increasing right basilar infiltrate and associated pleural fluid is likely due to pneumonia or infarct and continued radiographic follow-up would be of use. Dictated on workstation # [id number] Dict: 03/07/23 0848 Trans: 03/07/23 0851 [id number] Interpreted by: BILL RITTER MD Electronically signed by: Departure Communication (Admissions) Time/Spoke to Consulting Phy: 10:[address] James - will extend antibiotics 1 week Impression Primary Impression: Pneumonia Qualified Codes: J18.9 - Pneumonia, unspecified organism Disposition: 01 HOME, SELF-CARE Condition: Stable Departure-Patient Inst. Decision time for Depature: 10:26 Referrals: [facility] (PCP/Family) Primary Care Physician Patient Instructions: Pneumonia, Adult ED Add. Discharge Instructions: We would like for you to continue your cefdinir antibiotics for 1 more week, 7 days. You can use vibe-wey-uerymuo Mucinex as needed for congestion. Please follow packaging instructions. You can also use "Coricidin HBP" for congestion and cough. This is safe to use with a history of high blood pressure. Monitor your cough for increasing signs of bleeding. If you notice that you are coughing up more blood please come back to the emergency department for reevaluation. You need to keep very close follow-up with your primary care physician. Return to the emergency department at any point if you become concerned. Scripts Cefdinir (Cefdinir) 300 Mg Capsule 300 MG PO BID for 7 Days, #14 CAP Prov: SAMARA WOO MD 03/07/23 Copy Copies To 1: CALVIN SCHERER KATHRYN M MD Mar 07, 2023 08:29
--- NOTE | 2023-03-07 08:52 | Diagnostic Imaging Report ---
INDICATION: Dyspnea and hemoptysis. Single AP view of chest is obtained with comparison made study of 03/03/2023 FINDINGS: There has been further increase in opacification of the lower half of right lung with mild left perihilar atelectasis and/or pneumonitis. No pneumothorax is seen. Left costophrenic sulcus appears sharp. IMPRESSION: Increasing right basilar infiltrate and associated pleural fluid is likely due to pneumonia or infarct and continued radiographic follow-up would be of use. Dictated by: Dictated on workstation # [id number]
[2023-03-07] MEDS ORDERED: CEFD300C3 PO (10:41)
[2023-03-07 11:21] VITALS: BP 107/66
== END 2023-03-07 11:21 | disposition home or self-care (01) ==
LOC: EDUNIT# 08:00 → ER 08:01
DX: J18.9 Pneumonia, unspecified organism (principal); J44.9 Chronic obstructive pulmonary disease, unspecified; E66.9 Obesity, unspecified; G89.29 Other chronic pain; M54.9 Dorsalgia, unspecified; Z79.1 Long term (current) use of non-steroidal anti-inflammatories (NSAID); Z79.891 Long term (current) use of opiate analgesic; Z79.899 Other long term (current) drug therapy; Z99.81 Dependence on supplemental oxygen; Z68.34 Body mass index [BMI] 34.0-34.9, adult; Z88.0 Allergy status to penicillin
CPT/HCPCS: 71045

== ENCOUNTER 2023-03-09 10:50 | Inpatient (IN) | payer MEDICARE, MEDICAID ==
[~2023-03-09] VITALS: Ht 162 cm; Wt 89.9 kg
--- NOTE | 2023-03-09 11:09 | ED Respiratory ---
General Chief Complaint: Respiratory Problems Stated Complaint: CONFUSION/SLURRED WORDS Source: patient Exam Limitations: no limitations History of Present Illness Date Seen by Provider: Mar 09, 2023 Time Seen by Provider: 10:54 Initial Comments 52-year-old male with history of coronary artery disease, recent diagnosis of pulmonary emboli and pneumonia presents to the emergency department for shortness of breath. He was discharged from the hospital about a week ago on oxygen. A couple days ago he was seen here and diagnosed with pneumonia, ultimately sent home. He has been on 6 L via nasal cannula at home and is still feeling significantly short of breath. On arrival he is on 6 L of oxygen via nasal cannula and his oxygen saturations 82 to 85%. He complains of severe shortness of breath but has no chest pain. No abdominal pain or changes in bowel or bladder habits. He has been taking his antibiotics. All other systems reviewed and negative except documented per HPI. Voice recognition software was used to help create this chart Allergies and Home Medications Allergies Coded Allergies: Penicillins (Unverified Allergy, Mild, 01/27/09) pneumococcal vaccine (Verified Allergy, Unknown, 12/04/19) Patient Home Medication List Home Medication List Reviewed: Yes Albuterol Sulfate (Albuterol Sulfate) 2.5 Mg/3 Ml (0.083 %) Vial.neb, 1 VIAL PO BID, (Reported) Entered as Reported by: SILVINO BROWN on 02/25/23 1350 Last Action: Reviewed Albuterol Sulfate (Ventolin Hfa) 90 Mcg Hfa.aer.ad, 1 PUFF PO Q6H PRN for SHORTNESS OF BREATH, (Reported) Entered as Reported by: SILVINO BROWN on 02/25/23 1350 Last Action: Reviewed Allopurinol (Allopurinol) 100 Mg Tablet, 200 MG PO DAILY, (Reported) Entered as Reported by: NIRAV SORIANO on 07/12/18 0845 Last Action: Reviewed Apixaban (Eliquis) 5 Mg Tablet, 5 MG PO BID Prescribed by: SONIYA JAMES on 03/04/23 1106 Last Action: Reviewed Aspirin (Aspirin EC) 81 Mg Tablet.dr, 81 MG PO HS, (Reported) Entered as Reported by: FELIBERTO CONNOR on 09/26/18 1028 Last Action: Reviewed Atorvastatin Calcium (Atorvastatin Calcium) 20 Mg Tablet, 20 MG PO HS, (Reported) Entered as Reported by: SILVINO BROWN on 02/25/23 1348 Last Action: Reviewed Budesonide/Glycopyr/Formoterol (Breztri Aerosphere Inhaler) 160 Mcg-9 Mcg-4.8 Mcg/Actuation Hfa.aer.ad, 1 INHALER IDT BID, (Reported) Entered as Reported by: NINA GERARD on 02/24/23 164 Last Action: Reviewed Cefdinir (Cefdinir) 300 Mg Capsule, 300 MG PO BID Prescribed by: SAMARA WOO on 03/07/23 1041 Last Action: Reviewed Celecoxib (Celecoxib) 200 Mg Capsule, 200 MG PO BID, (Reported) Entered as Reported by: SARAH LILLY on 12/30/22 1917 Last Action: Reviewed Clopidogrel Bisulfate (Plavix) 75 Mg Tablet, 75 MG PO DAILY, (Reported) Entered as Reported by: FELIBERTO CONNOR on 09/26/18 1040 Last Action: Reviewed Docusate Sodium (Docusate Sodium) 100 Mg Tablet, 100 MG PO DAILY PRN for CONSTIPATION-1ST LINE, (Reported) Entered as Reported by: SILVINO BROWN on 02/25/23 1350 Last Action: Reviewed Gabapentin (Gabapentin) 600 Mg Tablet, 600 MG PO QID, (Reported) Entered as Reported by: NINA GERARD on 02/24/23 164 Last Action: Reviewed Isosorbide Mononitrate (Isosorbide Mononitrate ER) 30 Mg Tab.er.24h, 30 MG PO DAILY, (Reported) Entered as Reported by: NIRAV SORIANO on 07/12/18 0845 Last Action: Reviewed Lidocaine (Lidocaine 5% Patch) Unknown Strength Adh..patch, Unknown Dose TP Q12H, (Reported) Entered as Reported by: NINA GERARD on 02/24/23 1659 Last Action: Reviewed Lisinopril (Lisinopril) 10 Mg Tablet, 10 MG PO DAILY, (Reported) Entered as Reported by: NINA GERARD on 02/24/23 164 Last Action: Reviewed Metoprolol Tartrate (Metoprolol Tartrate) 50 Mg Tablet, 50 MG PO BID, (Reported) Entered as Reported by: FELIBERTO CONNOR on 06/15/19 1023 Last Action: Reviewed Nicotine (Nicoderm Cq) 21 Mg/24 Hour Patch.td24, 21 MG TD DAILY Prescribed by: SONIYA JAMES on 03/04/23 1106 Last Action: Reviewed Oxycodone HCl/Acetaminophen (Oxycodone-Acetaminophen 10-325) 10 Mg-325 Mg Tablet, 1 TAB PO Q4H PRN for PAIN, (Reported) Entered as Reported by: NINA GERARD on 02/24/23 1641 Last Action: Reviewed Pantoprazole Sodium (Protonix) 40 Mg Tablet.dr, 40 MG PO BID, (Reported) Entered as Reported by: TERESA CORREA on 12/04/19 0850 Last Action: Reviewed Discontinued Medications Cefdinir (Cefdinir) 300 Mg Capsule, 300 MG PO BID Discontinued Reason: Provider Change Prescribed by: SONIYA JAMES on 03/04/231105 Last Action: Discontinued Review of Systems Review of Systems Constitutional: see HPI Past Fklequp-Dgljqq-Ojqtpg Hx Patient Social History Tobacco Use?: No Smoking Status: Former Smoker Substance use?: No Alcohol Use?: No Pt feels they are or have been: No Immunizations Up To Date PED Vaccines UTD: Yes First/Initial COVID19 Vaccinat: X3 Second COVID19 Vaccination Esteban: X3 Third COVID19 Vaccination Date: X3 Seasonal Allergies Seasonal Allergies: No Past Medical History Surgery/Hospitalization HX: LEFT ABOVE KNEE AMPUTATION, HEART CATH X5 WITH STENTS HTN, HLD, GOUT, COPD, CHF Surgeries: Yes (LEFT AKA) Amputation, Cardiac, Coronary Stent, Orthopedic Respiratory: Yes (O2 DEPENDENT) Pulmonary Embolism, COPD Currently Using CPAP: No Currently Using BIPAP: No Cardiac: Yes (UT X 2; STENTS X 4; -NSTEMI 07/11/17 WITH 1 STENT PLACED) Coronary Artery Disease, Deep Vein Thrombosis, Heart Attack, High Cholesterol, Hypertension Neurological: No Reproductive Disorders: No Genitourinary: No Gastrointestinal: Yes Gastroesophageal Reflux Musculoskeletal: Yes (OXYCODONE, GABAPENTIN + IBUPROFEN DAILY;CHRONIC BACK/L LEG PHANTOM PAIN) Amputee, Chronic Back Pain, Gout Endocrine: No (OBESITY) HEENT: No Cancer: No Psychosocial: No Integumentary: No Blood Disorders: Yes (PROTEIN S DEFICIENCY--DVT'S AND P.E.'S AND UT X 2) Family Medical History Arthritis G8 BROTHER Blood clots 19 MOTHER ( of blood clot) Cardiac disorder 19 FATHER Diabetes mellitus G8 BROTHER FH: cancer paternal grandmother FHx: inflammatory bowel disease G8 BROTHER No Family History of: FH: sudden cardiac (SCD) Heart Disease, Vascular Disease Physical Exam Vital Signs - First Documented 03/09/23 10:56 Temp 35.7 Pulse 100 Resp 30 B/P (MAP) 158/71 (100) Pulse Ox 93 O2 Delivery OxyMask O2 Flow Rate 10.00 Capillary Refill : Height: 5'4.00" Weight: 190lbs. 1.6oz. [id number]; 34.00 BMI Method:Stated General Appearance: WD/WN, no apparent distress Eyes: Bilateral Eye Normal Inspection, Bilateral Eye PERRL, Bilateral Eye EOMI HEENT: PERRL/EOMI, normal ENT inspection, TMs normal, pharynx normal Neck: non-tender, full range of motion, supple, normal inspection Respiratory: chest non-tender, other (Mild respiratory distress with use of accessory muscles. There are rales and crackles in the right base with dramatically decreased lung sounds on the right side.) Cardiovascular: regular rate, rhythm, no murmur Gastrointestinal: normal bowel sounds, non tender, soft, no organomegaly Extremities: other (Qeife-mdd-xywh amputation on the left side) Neurologic/Psychiatric: alert, normal mood/affect, oriented x 3 Skin: normal color, warm/dry Focused Exam Lactate Level 03/09/23 11:12: Lactic Acid Level 1.61 Lactic Acid Level Laboratory Tests Test 03/09/23 11:12 Lactic Acid Level 1.61 MMOL/L (0.50-2.00) Progress/Results/Core Measures Suspected Sepsis SIRS Temperature: Pulse: Respiratory Rate: Laboratory Tests 03/09/23 11:12: White Blood Count 19.2H Blood Pressure / Mean: 03/09/23 11:12: Lactic Acid Level 1.61 Laboratory Tests 03/09/23 11:12: Creatinine 0.70, INR Comment 2.1H, Platelet Count 304, Total Bilirubin 0.7 Results/Orders Lab Results Laboratory Tests Test 03/09/23 11:12 Range/Units White Blood Count 19.2 H 4.3-11.0 10^3/uL Red Blood Count 3.60 L 4.30-5.52 10^6/uL Hemoglobin 10.8 L 13.3-17.7 g/dL Hematocrit 35 L 40-54 % Mean Corpuscular Volume 96 80-99 fL Mean Corpuscular Hemoglobin 30 25-34 pg Mean Corpuscular Hemoglobin Concent 31 L 32-36 g/dL Red Cell Distribution Width 15.9 H 10.0-14.5 % Platelet Count 304 130-400 10^3/uL Mean Platelet Volume 9.7 9.0-12.2 fL Immature Granulocyte % (Auto) 1 % Neutrophils (%) (Auto) 90 H 42-75 % Lymphocytes (%) (Auto) 3 L 12-44 % Monocytes (%) (Auto) 6 0-12 % Eosinophils (%) (Auto) 0 0-10 % Basophils (%) (Auto) 0 0-10 % Neutrophils # (Auto) 17.3 H 1.8-7.8 10^3/uL Lymphocytes # (Auto) 0.5 L 1.0-4.0 10^3/uL Monocytes # (Auto) 1.1 H 0.0-1.0 10^3/uL Eosinophils # (Auto) 0.0 0.0-0.3 10^3/uL Basophils # (Auto) 0.0 0.0-0.1 10^3/uL Immature Granulocyte # (Auto) 0.3 H 0.0-0.1 10^3/uL Neutrophils % (Manual) 92 % Lymphocytes % (Manual) 4 % Monocytes % (Manual) 4 % Eosinophils % (Manual) 0 % Basophils % (Manual) 0 % Band Neutrophils 0 % Anisocytosis SLIGHT Prothrombin Time 23.2 H 12.2-14.7 SEC INR Comment 2.1 H 0.8-1.4 Activated Partial Thromboplast Time 54 H 24-35 SEC Sodium Level 132 L 135-145 MMOL/L Potassium Level 3.5 L 3.6-5.0 MMOL/L Chloride Level 85 L 98-107 MMOL/L Carbon Dioxide Level 36 H 21-32 MMOL/L Anion Gap 11 5-14 MMOL/L Blood Urea Nitrogen 9 7-18 MG/DL Creatinine 0.70 0.60-1.30 MG/DL Estimat Glomerular Filtration Rate 112 BUN/Creatinine Ratio 13 Glucose Level 189 H 70-105 MG/DL Lactic Acid Level 1.61 0.50-2.00 MMOL/L Calcium Level 9.1 8.5-10.1 MG/DL Corrected Calcium 10.3 H 8.5-10.1 MG/DL Total Bilirubin 0.7 0.1-1.0 MG/DL Aspartate Amino Transf (AST/SGOT) 30 5-34 U/L Alanine Aminotransferase (ALT/SGPT) 14 0-55 U/L Alkaline Phosphatase 125 40-136 U/L Total Protein 6.3 L 6.4-8.2 GM/DL Albumin 2.5 L 3.2-4.5 GM/DL My Orders Orders - BECK DENTON DO Cbc With Automated Diff (03/09/23 11:04) Comprehensive Metabolic Panel (03/09/23 11:04) Blood Culture (03/09/23 11:04) Sputum Culture (03/09/23 11:04) Protime With Inr (03/09/23 11:04) Partial Thromboplastin Time (03/09/23 11:04) Chest 1 View, Ap/Pa Only (03/09/23 11:04) Ed Iv/Invasive Line Start (03/09/23 11:04) Ekg Tracing (03/09/23 11:04) Vital Signs Adult Sepsis Patie Q15M (03/09/23 11:04) O2 (03/09/23 11:04) Remove Rings In Anticipation O (03/09/23 11:04) Lactic Acid Analyzer (03/09/23 11:04) Manual Differential (03/09/23 11:12) Piperacillin Sodium/Tazobactam (Zosyn Vi (03/09/23 12:00) Ct Angio Chest W (03/09/23 11:59) Iohexol Injection (Omnipaque 350 Mg/Ml 1 (03/09/23 12:30) Received Contrast (Hold Metformin- Contr (03/09/23 12:30) Ns (Ivpb) (Sodium Chloride 0.9% Ivpb Bag (03/09/23 12:30) Ed Admission (Communication) (03/09/23 12:34) Medications Given in ED Vital Signs/I&O 03/09/23 03/09/23 03/09/23 10:56 11:07 13:04 Temp 35.7 35.7 Pulse 100 97 Resp 30 30 B/P (MAP) 158/71 (100) 134/79 Pulse Ox 93 96 O2 Delivery OxyMask Nasal Cannula OxyMask O2 Flow Rate 10.00 10.00 10.00 03/10/23 00:00 Intake Total 100 ml Balance 100 ml Capillary Refill : ECG Comment Sinus rhythm with a rate of 91 bpm. Normal intervals. Normal axis. No ST or T wave abnormalities. No ectopy. Incomplete right bundle branch block. No STEMI. Critical Care Note Critical Care Total Time (minutes) 60 Departure Communication (Admissions) Patient is significantly hypoxic. We had to put him on a facemask at 10 L to maintain oxygen saturations greater than 90 to 92%. He is subjectively short of breath but is not in any respiratory distress. His chest x-ray shows worsening right-sided lung findings. This may be effusion so I ordered a CT scan to further evaluate to see if he is a candidate for diagnostic, therapeutic thoracentesis. His labs are reassuring outside of significant leukocytosis. Have gone ahead and ordered him some antibiotics. I spoke Dr. Cerna who ac cepts the patient to the ICU. Impression Primary Impression: Pneumonia Qualified Codes: J18.9 - Pneumonia, unspecified organism Additional Impression: Hypoxia Disposition: ADMITTED INPATIENT Condition: Stable Admissions Decision to Admit Reason: Admit from ER (General) Departure-Patient Inst. Referrals: [facility] (PCP/Family) Primary Care Physician BECK DENTON DO Mar 09, 2023 11:09
[2023-03-09 11:21] LABS: BASOPHILS % (AUTO) 0 % (0-10); EOSINOPHILS % (AUTO) 0 % (0-10); HEMATOCRIT 35 % (40-54); HEMOGLOBIN 10.8 g/dL (13.3-17.7); LYMPHOCYTES # (AUTO) 0.5 10^3/uL (1.0-4.0); LYMPHOCYTES % (AUTO) 3 % (12-44); MEAN CORPUSCULAR HEMOGLOBIN 30 pg (25-34); MEAN CORPUSCULAR HGB CONC 31 g/dL (32-36); MEAN CORPUSCULAR VOLUME 96 fL (80-99); MEAN PLATELET VOLUME 9.7 fL (9.0-12.2); MONOCYTES # (AUTO) 1.1 10^3/uL (0.0-1.0); MONOCYTES % (AUTO) 6 % (0-12); NEUTROPHILS # (AUTO) 17.3 10^3/uL (1.8-7.8); NEUTROPHILS % (AUTO) 90 % (42-75); PLATELET COUNT 304 10^3/uL (130-400); WHITE BLOOD COUNT 19.2 10^3/uL (4.3-11.0)
[2023-03-09 11:33] LABS: ALBUMIN 2.5 GM/DL (3.2-4.5)
[2023-03-09 11:34] LABS: POTASSIUM 3.5 MMOL/L (3.6-5.0)
[2023-03-09 11:35] LABS: CALCIUM 9.1 MG/DL (8.5-10.1); INR 2.1 (0.8-1.4); PROTHROMBIN TIME PATIENT 23.2 SEC (12.2-14.7)
[2023-03-09 11:36] LABS: TOTAL PROTEIN 6.3 GM/DL (6.4-8.2)
[2023-03-09 11:38] LABS: BILIRUBIN,TOTAL 0.7 MG/DL (0.1-1.0)
[2023-03-09 11:40] LABS: CREATININE SERUM 0.7 MG/DL (0.60-1.30)
[2023-03-09 11:48] LABS: ANISOCYTOSIS SLIGHT; BAND NEUTROPHILS 0 %; BASOPHILS % (MANUAL) 0 %; EOSINOPHILS % (MANUAL) 0 %; LYMPHOCYTES % (MANUAL) 4 %; MONOCYTES % (MANUAL) 4 %; NEUTROPHILS % (MANUAL) 92 %
[2023-03-09] MEDS ORDERED: PIPERACILLIN SODIUM/TAZOBACTAM 4.5 GM in NS (IVPB) 100 ML IV ONE (12:00)
--- NOTE | 2023-03-09 12:10 | Diagnostic Imaging Report ---
CLINICAL INDICATION: Patient with shortness of breath and AMS since 0400 this morning. Patient recently discharged with pneumonia. EXAM: Portable chest x-ray upright view. COMPARISON: Chest x-ray dated 03/07/2023. FINDINGS: There is interval progression of consolidation of the right lung which is near completely opacified. There is slight increased lung markings involving the upper lung field on the left. Otherwise, lungs clear. Pulmonary vasculature is obscured on the right, but appears grossly within normal limits on the left. There is cardiomegaly which is partially obscured. The remainder of this exam is unremarkable. IMPRESSION: 1.: There is interval progression of consolidation in the right lung. 2: There is mild atelectasis or infiltrates involving the left upper lobe. Dictated by: Dictated on workstation # [id number]
[2023-03-09] MEDS ORDERED: NS 100 ML (IVPB) BAG IV ONE (12:30)
[2023-03-09] MEDS ORDERED: HOLD METFORMIN - RECEIVED CONTRAST 20 ML VIAL IV SCH (12:30)
[2023-03-09] MEDS ORDERED: IOHEXOL 350 MG/ML 100 ML (OMNIPAQUE 350) VIAL IV ONE (12:30)
--- NOTE | 2023-03-09 13:12 | Diagnostic Imaging Report ---
PROCEDURE: CT angiography of the chest with contrast. TECHNIQUE: Multiple contiguous axial images were obtained through the chest after uneventful bolus administration of intravenous contrast. 3D reconstructed CTA MIP acquisitions were also performed. Auto Exposure Controls were utilized during the CT exam to meet ALARA standards for radiation dose reduction. INDICATION: Shortness of breath and altered mental status earlier today. Slurring words. Recently diagnosed with pneumonia. CORRELATION STUDY: 02/25/2023. FINDINGS: Recent imaging demonstrated findings positive for pulmonary embolism. At follow-up, this does persist but the overall severity of thrombus burden may be slightly diminished. Clot remains most pronounced involving the proximal left main pulmonary artery but also involving the left upper lobe and right lower lobe pulmonary artery branches. Heart size is enlarged but without disproportionate right heart strain. Coronary artery calcification. Thoracic aorta is normal in contour. There are prominent mediastinal lymph nodes. There has been significant adverse change within the right hemithorax with development of a rather sizable, complex multiseptated and gas-containing pleural effusion occupying majority of the right hemithorax. This results in significantly collapsed right lung which is consolidated. Some low attenuation within the right lung, concerning for potential developing multifocal intraparenchymal pulmonary abscess. Mild shift of the mediastinal structures towards the left hemithorax. There is groundglass opacity of the left upper lobe, may be reflective of infiltrate versus edema. Left lower lobe is clear. Visualized portions of the upper abdomen are unremarkable. Osseous structures demonstrate no acute findings. IMPRESSION: 1. Findings remain positive for pulmonary embolism. However, the overall severity of thrombus appears slightly diminished from prior. Cardiac enlargement without disproportionate right heart strain. 2. There has been significant adverse change in the right hemithorax which includes complex multiloculated and gas-containing right pleural fluid collections, concerning for empyema. Significant consolidated right lung which is essentially completely collapsed. Concern for potential developing multifocal areas of intraparenchymal abscess. Dictated by: Dictated on workstation # [id number]
[2023-03-09] MEDS ORDERED: VANCOMYCIN INJECTION 0.1 MG in NS (IVPB) 250 ML IV SCH (13:30)
--- NOTE | 2023-03-09 13:54 | Tele-ICU Consult ---
Progress Note 52 y/o male recently discharged with PNA. Has hx of CAD and PE on apixaban Presents today with SOB and hypoxemic Pulse ox in ED 85% CT chest: INDINGS: Recent imaging demonstrated findings positive for pulmonary embolism. At follow-up, this does persist but the overall severity of thrombus burden may be slightly diminished. Clot remains most pronounced involving the proximal left main pulmonary artery but also involving the left upper lobe and right lower lobe pulmonary artery branches. Heart size is enlarged but without disproportionate right heart strain. Coronary artery calcification. Thoracic aorta is normal in contour. There are prominent mediastinal lymph nodes. There has been significant adverse change within the right hemithorax with development of a rather sizable, complex multiseptated and gas-containing pleural effusion occupying majority of the right hemithorax. This results in significantly collapsed right lung which is consolidated. Some low attenuation within the right lung, concerning for potential developing multifocal intraparenchymal pulmonary abscess. Mild shift of the mediastinal structures towards the left hemithorax. There is groundglass opacity of the left upper lobe, may be reflective of infiltrate versus edema. Left lower lobe is clear. Visualized portions of the upper abdomen are unremarkable. Osseous structures demonstrate no acute findings. IMPRESSION: 1. Findings remain positive for pulmonary embolism. However, the overall severity of thrombus appears slightly diminished from prior. Cardiac enlargement without disproportionate right heart strain. 2. There has been significant adverse change in the right hemithorax which includes complex multiloculated and gas-containing right pleural fluid collections, concerning for empyema. Significant consolidated right lung which is essentially completely collapsed. Concern for potential developing multifocal areas of intraparenchymal abscess. IMP: right chest effusion with possible abscess PLAN: cultures IV antibiotics May need thoracoscopy Focused Exam Lactate Level 03/09/23 11:12: Lactic Acid Level 1.61 Height, Weight, BMI Height: 5'4.00" Weight: 190lbs. 1.6oz. 86.322638uf; 34.00 BMI Method:Stated Lactic Acid Level Laboratory Tests Test 03/09/23 11:12 Lactic Acid Level 1.61 MMOL/L (0.50-2.00) Labs Laboratory Tests 03/09/23 11:12 Results Results/Procedures Labs Laboratory Tests 03/09/23 11:12 Patient resulted labs reviewed. Results Labs Labs Laboratory Tests 03/09/23 11:12: White Blood Count 19.2H, Red Blood Count 3.60L, Hemoglobin 10.8L, Hematocrit 35L , Mean Corpuscular Volume 96, Mean Corpuscular Hemoglobin 30, Mean Corpuscular Hemoglobin Concent 31L, Red Cell Distribution Width 15.9H, Platelet Count 304, Mean Platelet Volume 9.7, Immature Granulocyte % (Auto) 1, Neutrophils (%) (Auto) 90H, Lymphocytes (%) (Auto) 3L, Monocytes (%) (Auto) 6, Eosinophils (%) (Auto) 0, Basophils (%) (Auto) 0, Neutrophils # (Auto) 17.3H, Lymphocytes # (Auto) 0.5L, Monocytes # (Auto) 1.1H, Eosinophils # (Auto) 0.0, Basophils # (Auto) 0.0, Immature Granulocyte # (Auto) 0.3H, Neutrophils % (Manual) 92, Lymphocytes % (Manual) 4, Monocytes % (Manual) 4, Eosinophils % (Manual) 0, Basophils % (Manual) 0, Band Neutrophils 0, Anisocytosis SLIGHT, Prothrombin Time 23.2H, INR Comment 2.1H, Activated Partial Thromboplast Time 54H, Sodium Level 132L, Potassium Level 3.5L, Chloride Level 85L, Carbon Dioxide Level 36H, Anion Gap 11, Blood Urea Nitrogen 9, Creatinine 0.70, Estimat Glomerular Filtration Rate 112, BUN/Creatinine Ratio 13, Glucose Level 189H, Lactic Acid Level 1.61, Calcium Level 9.1, Corrected Calcium 10.3H, Total Bilirubin 0.7, Aspartate Amino Transf (AST/SGOT) 30, Alanine Aminotransferase (ALT/SGPT) 14, Alkaline Phosphatase 125, Total Protein 6.3L, Albumin 2.5L SHASHA DIXON MD Mar 09, 2023 13:54
[2023-03-09] MEDS ORDERED: VANCOMYCIN 1,750 MG/NS 500 ML IVPB IV ONE ×2 (14:00)
[2023-03-09] MEDS ORDERED: morphine INJ 4 MG/ML 1 ML (VIAL/SYRINGE) IVP PRN (14:30)
[2023-03-09] MEDS ORDERED: NS IV 500 ML 500 ML IV PRN (14:45)
[2023-03-09 15:13] VITALS: BP 145/75
[2023-03-09] MEDS ORDERED: RT-ALBUTEROL/IPRATROPIUM 3 ML (DUONEB) VIAL INH PRN (15:30)
--- NOTE | 2023-03-09 16:21 | Short Stay Summary-Hospitalist ---
History of Present Illness HPI/Chief Complaint 52-year-old maWho was recently admitted to our facility on 25 February discharged on the with a diagnosis of pulmonary embolus with right lower lobe infiltrate treated as a pneumonia but for which the differential diagnosis included malignancy or infection. 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 He had undergone left AKA amputation for ischemic reasons and has had cardiovascular stenting in the past with reported preserved LV function. Last stent was reportedly in 2017. Prior to his initial admission he was only on aspirin and no other anticoagulant therapy. He was discharged on antibiotic therapy as well as Eliquis 5 mg twice daily reporting that initially he felt significantly better than on discharge. His condition deteriorated with increased shortness of breath purulent sputum production reportedly green without hemoptysis although he had had some hemoptysis during his previous hospital stay. He reported night sweats. He denied headache his reports that he had been sleeping a lot and a little more confused. Increasing shortness of breath With weakness and poor appetite was the reason that he return to the emergency room. There his CT scan revealed bilateral pulmonary emboli they reported that his clot burden appeared to be slightly diminished compared to previous CT scan but he had significant increase in right pleural effusion only the apices were visualized there is gas in the pleural effusion and there are findings suspicious for underlying pulmonary abscess on the right side only. The patient reported he been told he had a penicillin allergy he was given Zosyn in the emergency room prior to my involvement currently has no evidence for rash with no worsening of shortness of breath on 10 L high flow oxygen with saturations in the low 90s and a respiratory rate currently of 20 and nonlabored at rest. Date Seen 03/09/23 Time Seen by a Provider: 15:45 Attending Physician [place] PCP Admitting Physician: Seth Trent MD Attending Physician: Seth Trent MD Referring Physician Date of Admission Mar 09, 2023 at 13:16 Home Medications & Allergies Home Medications Reviewed patient Home Medication Reconciliation performed by pharmacy medication reconciliations missile technician and/or nursing. Patients Allergies have been reviewed. Allergies Allergies Coded Allergies Penicillins (Unverified Allergy, Mild, 01/27/09) pneumococcal vaccine (Verified Allergy, Unknown, 12/04/19) Past Tygxnrs-Scbhwy-Ezcqwy Hx Patient Social History Tobacco Use?: Yes Tobacco type used: Cigarettes Smoking Status: Former Smoker Use of E-Cig and/or Vaping dev: No Substance use?: No Alcohol Use?: No Pt feels they are or have been: No Immunizations Up To Date Date of Influenza Vaccine: Sep 25, 2018 First/Initial COVID19 Vaccinat: X3 Second COVID19 Vaccination Esteban: X3 Tetanus Booster (TDap): Unknown Hepatitis A: No Hepatitis B: No PED Vaccines UTD: Yes Date of Pneumonia Vaccine: Jul 28, 2012 Seasonal Allergies Seasonal Allergies: No Current Status Communicates: Verbally Primary Language: [place] Preferred Spoken Language: [place]ayan Is interpretation needed?: No Sensory deficits: Vision impairment Implanted or Applied Medical D: Stents Past Medical History Surgeries: Amputation, Cardiac, Coronary Stent, Orthopedic Pulmonary Embolism, COPD Currently Using CPAP: No Currently Using BIPAP: No Coronary Artery Disease, Deep Vein Thrombosis, Heart Attack, High Cholesterol, Hypertension Gastroesophageal Reflux Amputee, Chronic Back Pain, Gout Blood Disorders: Yes (PROTEIN S DEFICIENCY--DVT'S AND P.E.'S AND WI X 2) PMHx: Stovall's disease Coronary artery disease with stenting x 5 PE HTN HLD Chronic pain COPD on nocturnal oxygen CHF SurgHx: Left AKA due to blood disorder Stovall's disease Coronary artery stenting Exploratory laparotomy Family Medical History Arthritis G8 BROTHER Blood clots 19 MOTHER ( of blood clot) Cardiac disorder 19 FATHER Diabetes mellitus G8 BROTHER FH: cancer paternal grandmother FHx: inflammatory bowel disease G8 BROTHER No Family History of: FH: sudden cardiac (SCD) Heart Disease, Vascular Disease Review of Systems Constitutional: see HPI Physical Exam Physical Exam Vital Signs Vital Signs - First Documented 03/09/23 10:56 Temp 35.7 Pulse 100 Resp 30 B/P (MAP) 158/71 (100) Pulse Ox 93 O2 Delivery OxyMask O2 Flow Rate 10.00 Capillary Refill : Height, Weight, BMI Height: 5'4.00" Weight: 190lbs. 1.6oz. [id number]; 34.25 BMI Method:Stated General Appearance: Chronically ill, Mild Distress Eyes: Bilateral Eye Normal Inspection, Bilateral Eye PERRL, Bilateral Eye EOMI HEENT: PERRL/EOMI, Pale Conjunctivae (L), Pale Conjunctivae (R) Neck: Full Range of Motion, Non Tender, Supple Respiratory: No Accessory Muscle Use, No Respiratory Distress, Other (Few rhonchi on left no wheezing absent breath sounds to the upper lung mehta on the right) Cardiovascular: Regular Rate, Rhythm, No Edema, No Gallop, Tachycardia (Sinus) Gastrointestinal: Normal Bowel Sounds, No Organomegaly, No Pulsatile Mass, Non Tender, Soft Extremity: Normal Capillary Refill, Normal Inspection, Normal Range of Motion, Non Tender, No Calf Tenderness, Other (1+ lower extremity edema.) Neurologic/Psychiatric: Oriented x3, No Motor/Sensory Deficits, Depressed Affect Skin: Pallor Results Results/Procedures Labs Laboratory Tests 03/09/23 11:12 Patient resulted labs reviewed. Short Stay Diagnosis Discharge Diagnosis-Short Stay Admission Diagnosis 1. Respiratory distress secondary to right-sided pulmonary abscess and empyema cannot rule out the possibility of pulmonary infarction considering the patient also has pulmonary embolism. As he will likely require chest tube placement will hold Eliquis his last dose was 8 or 9:00 this morning and will initiate full dose heparin drip now. A neoplastic process is also in the differential diagnosis in addition underlying infectious disease will continue broad-spectrum antibiotic coverage in the form of Zosyn and vancomycin monitoring for any evidence for allergic reaction with questionable diagnosis of penicillin allergy. 2. History of Buerger's disease with past arterial and venous disease including coronary artery disease and peripheral vascular disease. Last reported stent placement and cardiac intervention was in 2017 Final Discharge Diagnosis Same as admission diagnosis Conclusion Plan As the patient isIn need of higher level of care than what we can offer we are in the process of trying get the patient transferred to . We do not have ambulance capability will likely need to go by air transport. SETH TRENT MD Mar 09, 2023 16:21
[2023-03-09 16:25] LABS: ABG BASE EXCESS 17.1 MMOL/L (-2.5-2.5); ABG OXYGEN SATURATION 94 % (94-100); ABG PCO2 70 MMHG (35-45); ABG PO2 66 MMHG (79-93)
[2023-03-09 16:30] LABS: ABG TCO2 45.5 MMOL/L (21.0-31.0); ALLENS TEST YES-POS; INSPIRED O2 10; PATIENT TEMP 35.7; VENTILATOR NO
[2023-03-09] MEDS ORDERED: RT-ALBUTEROL/IPRATROPIUM 3 ML (DUONEB) VIAL INH SCH (18:00)
--- NOTE | 2023-03-09 19:04 | CONSULTATION REPORT ---
ATTENDING MEDICAL DOSIMETRIST: [facility]. ATTENDING PHYSICIAN: Dr. Seth Cerna. HISTORY OF PRESENT ILLNESS: The patient is a 52-year-old male who presented to the Emergency Department for worsening shortness of breath. This patient does have a significant past medical history. All is coming from smoking including a previous pneumonia, coronary artery disease, peripheral vascular disease and Buerger's disease and is status post left below-knee amputation and has had multiple cardiac catheterizations and a total of 5 stents placed. The patient was recently discharged home on 02/24 for a pneumonia. He was discharged home with home O2 at 6 liters nasal cannula and states that he had developed worsening shortness of breath at home and his oxygen saturations were anywhere from 82-85%. Another CT scan was performed, which did show a significant amount of consolidation and fluid at the base of the right pleural space, likely consistent with an empyema. There is also possibility of a mass, which may represent a neoplasm. At this time, the effusion appears to be in the exudative or fibrinopurulent stage of empyema and we will proceed with placement of a large bore chest tube to augment drainage and help with resolution of the infection as well as hopefully help with reexpansion of the right lung. PAST MEDICAL HISTORY: Buerger's disease, coronary artery disease, peripheral vascular disease, hypertension, hyperlipidemia, gout, COPD, CHF, history of deep vein thrombosis, history of myocardial infarction x2, gastroesophageal reflux disease, morbid obesity. PAST SURGICAL HISTORY: Left above-knee amputation, multiple cardiac catheterizations and total of 5 stents placed with the last one done approximately in 2017. Recent history of pulmonary embolism on last admission; however, this has been stable and has decreased in size on repeat CT scan today. He is currently on anticoagulation with Plavix and Eliquis. ALLERGIES: PENICILLIN, PNEUMOCOCCAL VACCINE. MEDICATIONS: Albuterol nebulizer 2.5 mg b.i.d., albuterol MDI 90 mcg every 6 hours p.r.n., allopurinol 100 mg daily, apixaban 5 mg b.i.d., aspirin 81 mg daily, atorvastatin 20 mg daily, budesonide/formoterol 160/4.8 mcg inhaler b.i.d., cefdinir 300 mg b.i.d., celecoxib 200 mg b.i.d., Plavix 75 mg daily, Colace p.r.n., gabapentin 600 mg q.i.d., isosorbide mononitrate 30 mg daily, lisinopril 10 mg daily, metoprolol 50 mg b.i.d., nicotine patch 21 mg daily, oxycodone 10 mg q. 4 hours p.r.n., Protonix 40 mg b.i.d. SOCIAL HISTORY: Longstanding history of smoking greater than 50 pack years, negative alcohol. FAMILY HISTORY: Brother, diabetes. Mother with thromboembolic event. Paternal grandmother with some form of cancer. Brother, inflammatory bowel disease. VITAL SIGNS: Temperature 35.7, blood pressure 168/91, pulse 105, respirations 18, pulse ox 94% on 8 liters high flow nasal cannula. REVIEW OF SYSTEMS: Well-nourished male, currently in no acute distress. At this time, he is not experiencing any shortness of breath or using any accessory muscles of respiration. No chest pain, palpitations, diaphoresis. No nausea, vomiting. No diarrhea or constipation. No known fevers or chills, no recent inadvertent weight loss. All other review of systems negative. PHYSICAL EXAMINATION: CHEST: Minimal breath sounds right lung. Scattered wheezes left lung. HEART: Normal heart sounds, no murmurs. EXTREMITIES: +1/3 bilateral lower extremity edema. Negative Homans sign. HEENT: No scleral icterus. No cervical lymphadenopathy. ABDOMEN: Soft, nontender, nondistended. SKIN: Warm, dry. LABORATORY DATA: WBC 19.2, hemoglobin 10.8, hematocrit 35, platelets 304, BUN 9, creatinine 0.70. INR 2.1. ASSESSMENT AND PLAN: A 52-year-old male with a recurrent right-sided pneumonia and empyema either in the exudative or fibrinopurulent face, which may allow for some drainage of the fluid and allow for infection control as well as reexpansion of the right lung and we will proceed with placement of a large bore chest tube in place onto a waterseal and suction to identify any potential air leaks. We will also recommend continue anticoagulation for the previous pulmonary embolism as well as continued IV antibiotics and breathing treatments. Job ID: [id number] DocumentID: [id number] Dictated Date: 03/09/2023 18:04:53 Associate Chemist Date: 03/09/2023 19:02:00 Dictated By: CASTRO LEON MD
[2023-03-10] MEDS ORDERED: VANCOMYCIN 1 GM/NS 250 ML IVPB IV SCH ×2 (02:00)
[2023-03-10] MEDS ORDERED: KCL 20 MEQ TAB (K-DUR) PO SCH (06:00)
[2023-03-10] MEDS ORDERED: MAGNESIUM 1 GM/100 ML IVPB 100 ML IV SCH (06:00)
[2023-03-10] MEDS ORDERED: POTASSIUM CL 10MEQ/50ML IVPB 50 ML IV SCH (06:00)
== END 2023-03-09 19:05 | disposition short-term general hospital (02) | DRG 177 ==
LOC: EDUNIT# 10:50 → ER 10:53 → ICU 13:16
PROVIDERS: ADMIT Internal Medicine; ATTEND Internal Medicine
PROC: 5A0935A Assistance with Respiratory Ventilation, Less than 24 Consecutive Hours, High Flow/Velocity Cannula (ICD-10-PCS; principal; 2023-03-09)
DX: J86.9 Pyothorax without fistula (principal); I26.99 Other pulmonary embolism without acute cor pulmonale; J18.9 Pneumonia, unspecified organism; J44.0 Chronic obstructive pulmonary disease with (acute) lower respiratory infection; Z87.891 Personal history of nicotine dependence; I25.10 Atherosclerotic heart disease of native coronary artery without angina pectoris; Z86.718 Personal history of other venous thrombosis and embolism; I25.2 Old myocardial infarction; E78.00 Pure hypercholesterolemia, unspecified; K21.9 Gastro-esophageal reflux disease without esophagitis; G89.29 Other chronic pain; M54.9 Dorsalgia, unspecified; M10.9 Gout, unspecified; Z95.5 Presence of coronary angioplasty implant and graft; I50.9 Heart failure, unspecified; I11.0 Hypertensive heart disease with heart failure; Z89.612 Acquired absence of left leg above knee; I73.9 Peripheral vascular disease, unspecified; Z79.82 Long term (current) use of aspirin; Z79.899 Other long term (current) drug therapy; R09.02 Hypoxemia
CPT/HCPCS: 36415; 36600; 71045; 71275; 80053; 82805; 83605; 85007; 85027; 85610; 85730; 87040; 87081